=== PATIENT | female | born 1965 | race American Indian/Alaskan Native ===

== ENCOUNTER 2018-12-01 23:56 | Inpatient (IN) | payer OTHER ==
[2018-12-02] MEDS ORDERED: ADRENALIN ONE (00:10)
[2018-12-02] MEDS ORDERED: CORDARONE IV ONE (00:10)
[2018-12-02] MEDS ORDERED: ATROPINE 0.1% (CARDIAC) ONE (00:10)
[2018-12-02] MEDS ORDERED: AMIDATE IV ONE (00:20)
[2018-12-02] MEDS ORDERED: ZEMURON IV ONE (00:20)
[2018-12-02] MEDS ORDERED: NACL 0.9% 1000 ML 1,000 ML IV ONE (00:20)
[2018-12-02] MEDS ORDERED: DIPRIVAN 10 MG/ML 1,000 MG/100 ML BOTTLE IV ONE (00:33)
--- NOTE | 2018-12-02 00:38 | Emergency Department Report ---
ED CPR HPI - General Chief Complaint: Cardiac Arrest/CPR Stated Complaint: CHEST PAIN Time Seen by Provider: 12/02/18 00:20 Source: patient Mode of arrival: Ambulatory Limitations: No Limitations - History of Present Illness Initial Comments: Patient is 53 years old female with history of hypertension and hyperlipidemia, presented to the ER complaining of chest pain. While patient is getting her EKG patient told the triage nurse that she is feeling nauseous and then all of a sudden she passed out and start gasping for breath. Upon arrival to triage area patient is gasping for breath but she still have a pulse. Patient immediately moved to inside ER. Patient lost her pulse, CPR initiated. Patient attached to a center specialists which showed a V. fib and patient lost her pulse. Patient immediately received a 200 J that converted her rhythm to normal sinus rhythm and palpable pulse . Patient received amiodarone 300 mg IV and started on amio darone drip. patient intubated after significant suctioning secondary to aspiration. Central line placed. Complaint: stopped breathing - Related Data Home Medications Medication Instructions Recorded Confirmed Last Taken Triamter/Hctz 37.5-25 mg 1 cap PO DAILY 09/16/18 09/16/18 Unknown Previous Rx's Medication Instructions Recorded Last Taken Type Acetaminophen [Acetaminophen TAB] 650 mg PO Q4H PRN #30 tablet 09/16/18 Unknown Rx Aspirin [Aspirin BABY CHEW TAB] 81 mg PO QDAY #30 tab.chew 09/16/18 Unknown Rx AtorvaSTATin [Lipitor] 20 mg PO QHS #30 tablet 09/16/18 Unknown Rx Cilostazol [Pletal] 75 mg PO BID #60 tablet 09/16/18 Unknown Rx Pantoprazole [Protonix] 40 mg PO QDAY #14 tablet 09/16/18 Unknown Rx amLODIPine [Norvasc] 10 mg PO DAILY #30 tablet 09/16/18 Unknown Rx cloNIDine [Catapres] 0.1 mg PO DAILY #30 tablet 09/16/18 Unknown Rx levoFLOXacin [Levaquin TAB] 500 mg PO QDAY #5 tablet 09/16/18 Unknown Rx Allergies Allergy/AdvReac Type Severity Reaction Status Date / Time No Known Allergies Allergy Unverified 05/06/15 16:09 ED Review of Systems ROS: Stated complaint: CHEST PAIN Other details as noted in HPI Comment: Unobtainable due to pts medical conditions ED Past Medical Hx - Past Medical History Hx Hypertension: Yes - Surgical History Additional Surgical History: D&C - Social History Smoking Status: Former Smoker - Medications Home Medications: Home Medications Medication Instructions Recorded Confirmed Last Taken Type Acetaminophen [Acetaminophen TAB] 650 mg PO Q4H PRN #30 tablet 09/16/18 Unknown Rx Aspirin [Aspirin BABY CHEW TAB] 81 mg PO QDAY #30 tab.chew 09/16/18 Unknown Rx AtorvaSTATin [Lipitor] 20 mg PO QHS #30 tablet 09/16/18 Unknown Rx Cilostazol [Pletal] 75 mg PO BID #60 tablet 09/16/18 Unknown Rx Pantoprazole [Protonix] 40 mg PO QDAY #14 tablet 09/16/18 Unknown Rx Triamter/Hctz 37.5-25 mg 1 cap PO DAILY 09/16/18 09/16/18 Unknown History amLODIPine [Norvasc] 10 mg PO DAILY #30 tablet 09/16/18 Unknown Rx cloNIDine [Catapres] 0.1 mg PO DAILY #30 tablet 09/16/18 Unknown Rx levoFLOXacin [Levaquin TAB] 500 mg PO QDAY #5 tablet 09/16/18 Unknown Rx ED Physical Exam - General Limitations: No Limitations General appearance: obtunded, other - Head Head exam: Present: atraumatic, normocephalic, normal inspection - Eye Eye exam: Present: normal appearance - ENT ENT exam: Present: normal exam, mucous membranes moist - Neck Neck exam: Present: normal inspection - Respiratory Respiratory exam: Present: other (no spontaneous breathing. Patient intubated) - Cardiovascular Cardiovascular Exam: Present: other (no pulse) - GI/Abdominal GI/Abdominal exam: Present: soft. Absent: distended, tenderness, guarding - Extremities Exam Extremities exam: Present: normal inspection ED Course Vital Signs 12/02/18 12/02/18 12/02/18 00:18 00:30 00:46 Pulse Rate 94 H 86 101 H Respiratory 22 18 16 Rate Blood Pressure 139/108 122/77 Blood Pressure [Right] O2 Sat by Pulse 95 99 Oximetry 12/02/18 12/02/18 12/02/18 01:00 01:16 01:30 Pulse Rate 103 H 95 H 108 H Respiratory 22 22 22 Rate Blood Pressure 188/121 168/109 192/138 Blood Pressure 152/102 [Right] O2 Sat by Pulse 100 100 99 Oximetry 0712/02/18 12/02/18 01:34 01:45 01:46 Pulse Rate 111 H 109 H 112 H Respiratory 22 24 Rate Blood Pressure 178/122 178/122 Blood Pressure 153/108 [Right] O2 Sat by Pulse 99 99 100 Oximetry 12/02/18 12/02/18 12/02/18 02:00 02:16 02:52 Pulse Rate 118 H 116 H 69 Respiratory 24 24 Rate Blood Pressure 176/124 168/114 172/124 Blood Pressure [Right] O2 Sat by Pulse 98 96 91 Oximetry 12/02/18 12/02/18 12/02/18 03:00 03:15 03:30 Pulse Rate 90 75 66 Respiratory 19 24 16 Rate Blood Pressure 136/92 127/88 131/104 Blood Pressure [Right] O2 Sat by Pulse 91 91 98 Oximetry 12/02/18 12/02/18 12/02/18 03:46 04:00 04:15 Pulse Rate 73 73 71 Respiratory 19 26 H 28 H Rate Blood Pressure 62/28 89/57 80/49 Blood Pressure [Right] O2 Sat by Pulse 98 95 Oximetry 12/02/18 12/02/18 12/02/18 04:30 04:45 05:00 Pulse Rate 70 69 73 Respiratory 31 H 24 32 H Rate Blood Pressure 80/50 87/59 97/56 Blood Pressure [Right] O2 Sat by Pulse 95 90 85 Oximetry 12/02/18 12/02/18 12/02/18 05:15 05:20 05:29 Pulse Rate 68 71 71 Respiratory 27 H 28 H Rate Blood Pressure 87/52 90/50 Blood Pressure 93/49 [Right] O2 Sat by Pulse 89 91 92 Oximetry - Central Line Placement Right Femoral Consent Obtained: emergent situation Time Out Performed: Yes Patient Placed on Monitor/Pulse Ox: Yes MD Prep: mask, gown, gloves Central Line Prep: Chlorhexidine scrub, sterile drapes applied Local Anesthesia Used: Lidocaine 2% Ultrasound Used for Placement: Yes Central Line Lumen Inserted: triple Bloods Obtained for Lab: No Central Line Position: good blood return, all ports aspirated, flus, sutured in place with 2-0 Dressing Applied: Tegaderm, sterile gauze/tape Patient Tolerated Procedure: well, no complications Complications: none - Intubation Time Out Performed: Yes Sedative: Etomidate Paralytic: Rocuronium Laryngoscope: fiberoptic video scope Size: 4 ET Tube Size: 7.5 Tube Secured Depth (cm): 22 Tube Secured Location: teeth Tube Placement Confirmation: visualized tube passing t, equal breath sounds bilat, no breath sounds over epi, confirmation by capnometr Patient Tolerated Procedure: well, no complications Intubation Complications: none ED Medical Decision Making - Lab Data Result diagrams: 12/02/18 00:30 12/02/18 00:30 - EKG Data -: EKG Interpreted by Me Rate: tachycardia - EKG Data 12/02/18 03:33 Atrial fibrillation with RVR. - Medical Decision Making Patient is 53 years old female with history of hypertension and hyperlipidemia, presented to the ER complaining of chest pain. While patient is getting her EKG patient told the triage nurse that she is feeling nauseous and then all of a s udden she passed out and start gasping for breath. Upon arrival to triage area patient is gasping for breath but she still have a pulse. Patient immediately moved to inside ER. Patient lost her pulse, CPR initiated. Patient attached to a center specialists which showed a V. fib and no pulse. Patient immediately received a 200 J that converted her rhythm to normal sinus rhythm and palpable pulse . Patient received amiodarone 300 mg IV and started on amiodarone drip. patient intubated after significant suctioning. Central line placed. Patient labs reviewed and is unremarkable except for elevated d-dimer and a slightly elevated white blood cells. CTA chest is negative for pulmonary embolism. I discussed the patient with Dr. RODRIGEZ. He advised admitting the patient's and he will follow-up with the patient. I discussed the patient with Dr Maribeth Mojica, she agreed to admit the patient to medical service. Critical Care Time: Yes Critical care time in (mins) excluding proc time.: 45 Critical care attestation.: If time is entered above; I have spent that time in minutes in the direct care of this critically ill patient, excluding procedure time. ED Disposition Clinical Impression: Cardiopulmonary arrest Disposition: OP ADMIT IP TO THIS HOSP Is pt being admited?: Yes Condition: Stable Referrals: DIMITRI LOTT MD [Primary Care Provider] - 3-5 Days
[2018-12-02] MEDS ORDERED: VASELINE LIP THERAPY TP PRN (00:45)
[2018-12-02] MEDS ORDERED: ARTIFICIAL TEARS OPHTH OINT OU PRN (00:45)
[2018-12-02] MEDS: CORDARONE 900 MG in D5W 482 ML IV SCH ×2 (01:00→19:38)
[2018-12-02] MEDS ORDERED: DIPRIVAN 10 MG/ML 1,000 MG/100 ML BOTTLE IV SCH ×2 (01:00)
--- NOTE | 2018-12-02 01:13 | XRay Report ---
CHEST 1 VIEW INDICATION / CLINICAL INFORMATION: Chest Pain. COMPARISON: 09/15/2018 FINDINGS: SUPPORT DEVICES: Endotracheal tube, nasogastric tube HEART / MEDIASTINUM: No significant abnormality. LUNGS / PLEURA: No significant pulmonary or pleural abnormality. No pneumothorax. ADDITIONAL FINDINGS: No significant additional findings. IMPRESSION: No acute pulmonary or pleural abnormality. Signer Name: Eriberto Dela Cruz MD FACR Signed: 12/02/2018 1:09 AM Workstation Name: [id number]
[2018-12-02 01:17] LABS: Mean Corpuscular HGB Conc 31 % (30-34); Mean Corpuscular Volume 92 fl (79-97); Platelet Count 422 K/mm3 (140-440); Red Blood Count 4.57 M/mm3 (3.65-5.03); Red Cell Distribution Width 18.1 % (13.2-15.2)
[2018-12-02 01:22] LABS: INR 1.09 (0.87-1.13)
[2018-12-02 01:24] LABS: Partial Thromboplastin Time 26.6 Sec. (24.2-36.6)
[2018-12-02 01:26] LABS: BUN/Creatinine Ratio 17; Blood Urea Nitrogen 20 mg/dL (7-17); Hemolysis Index 29
[2018-12-02 01:33] LABS: Hematocrit 42.1 % (30.3-42.9); Hemoglobin 12.9 gm/dl (10.1-14.3)
--- NOTE | 2018-12-02 03:15 | Cat Scan Report ---
CT angio chest INDICATION / CLINICAL INFORMATION: Status post Cardiac Arrest. Patient unresponsive and intubated. Injection via femoral power inject central line. RN states patient aspirated vomitus. . TECHNIQUE: Axial CT images were obtained after injection of IV contrast using CTA protocol. 3 plane MIP / 3D rec onstructions were produced. All CT scans at this location are performed using CT dose reduction for A ELDER by means of automated exposure control. 100 cc of Omnipaque 350 was injected intravenously COMPARISON: None available. FINDINGS: Following the injection of intravenous contrast, no filling defects are seen in the main pulmonary ar teries or their branches. Extensive bilateral airspace disease is seen. No enlarged mediastinal or hi lar lymph nodes are identified. IMPRESSION: 1. No evidence of pulmonary embolus 2. Extensive bilateral airspace disease Signer Name: Eriberto Dela Cruz MD FACR Signed: 12/02/2018 3:11 AM Workstation Name: [id number]
[2018-12-02] MEDS ORDERED: fentaNYL DRIP Premix 2,000 MCG/100 ML BAG IV ONE (03:28)
[2018-12-02 03:35] LABS: Amphetamine Screen,Urine PRESUMPTIVE NEGATIVE; Benzodiazepines Screen,Urine PRESUMPTIVE NEGATIVE; Cocaine Screen,Urine PRESUMPTIVE NEGATIVE; Methadone Screen,Urine PRESUMPTIVE NEGATIVE; Opiate Screen,Urine PRESUMPTIVE NEGATIVE
[2018-12-02 03:38] LABS: Bilirubin,Urine NEG (Negative); Blood,Urine SM (Negative); Color,Urine Colorless (Yellow); Mucus,Urine FEW /HPF; Urobilinogen,Urine < 2.0 mg/dL (<2.0)
[2018-12-02 03:50] LABS: Cannabinoid Screen,Urine PRESUMPTIVE POSITIVE
[2018-12-02] MEDS ORDERED: NACL 0.9% 1000 ML 1,000 ML ONE (03:50)
[2018-12-02] MEDS ORDERED: LEVOPHED DRIP 4 MG/NS 250 ML 4 MG/250 ML BAG IV ONE (03:50)
[2018-12-02] MEDS ORDERED: SUBLIMAZE IV PRN (04:00)
[2018-12-02] MEDS ORDERED: ZOSYN/NS 3.375GM/50ML 3.375 GM/50 ML BAG IV ONE (04:00)
[2018-12-02] MEDS: fentaNYL DRIP Premix 2,000 MCG/100 ML BAG IV SCH ×2 (04:06→15:49)
[2018-12-02] MEDS: LEVOPHED DRIP 4 MG/NS 250 ML 4 MG/250 ML BAG IV SCH ×5 (04:16→19:53)
[2018-12-02] MEDS ORDERED: LEVOPHED DRIP 4 MG/NS 250 ML 4 MG/250 ML BAG IV SCH (05:00)
[2018-12-02] MEDS ORDERED: ZOFRAN IV PRN (05:03)
[2018-12-02] MEDS ORDERED: SODIUM CHLORIDE FLUSH SYRINGE 10 ML IV PRN (05:03)
[2018-12-02] MEDS ORDERED: TYLENOL PO PRN (05:03)
--- NOTE | 2018-12-02 05:08 | History and Physical Report ---
History of Present Illness Date of examination: 12/02/18 History of present illness: 53 -year-old woman with a history of hypertension, hyperlidemia, PVD comes to the emergency room with complaints of chest pain. While she was getting an EKG, she went into cardiac arrest, shocked once for vfib, started on amiodarone drip and intubated. She aspirated copious amount of gastric content. Cousin at bedside, ROS unobtainable. She was here in September fo chest pain, stress test negative. She is on fetanyl and profopol, she became hypotensive after amiodarone was started. Levophed initiated PAST MEDICAL HISTORY:hypertension, hyperlipidemia, PVD PAST SURGICAL HISTORY: None SOCIAL HISTORY: Unknown alcohol, tobacco or drug use FAMILY HISTORY: Hypertension Medications and Allergies Allergies Allergy/AdvReac Type Severity Reaction Status Date / Time No Known Allergies Allergy Unverified 05/06/15 16:09 Home Medications Medication Instructions Recorded Confirmed Last Taken Type Amiodarone [Cordarone 200 MG TAB] 200 mg PO QDAY #30 tablet 12/15/18 12/16/18 Unknown Rx Apixaban [Eliquis] 5 mg PO BID #60 tablet 12/15/18 12/16/18 Unknown Rx Aspirin EC 81 mg PO QDAY #30 tablet 12/15/18 12/16/18 Unknown Rx AtorvaSTATin [Lipitor] 40 mg PO QHS #30 tablet 12/15/18 12/16/18 Unknown Rx Cilostazol [Pletal] 75 mg PO BID #60 tablet 12/15/18 12/16/18 Unknown Rx Clopidogrel [Plavix] 75 mg PO QDAY #30 tablet 12/15/18 12/16/18 Unknown Rx Furosemide [Lasix TAB] 40 mg PO QDAY #30 tablet 12/15/18 12/16/18 Unknown Rx ISOSORBIDE MONOnitrate [Imdur ER] 30 mg PO QDAY #30 tablet 12/15/18 12/16/18 Unknown Rx Lisinopril [Zestril TAB] 20 mg PO QDAY #30 tablet 12/15/18 12/16/18 Unknown Rx Metoprolol [Lopressor TAB] 50 mg PO BID #60 tablet 12/15/18 12/16/18 Unknown Rx Pantoprazole [Protonix TAB] 40 mg PO QDAY #30 tablet 12/15/18 12/16/18 Unknown Rx Polyethylene Glycol 3350 [Miralax 17 gm FEEDTUBE QDAY PRN #30 12/15/18 12/16/18 Unknown Rx 3350] powd.pack Active Meds: Active Medications Acetaminophen (Tylenol) 650 mg PO Q4H PRN PRN Reason: Pain MILD(1-3)/Fever >100.5/TORRES Albuterol/Ipratropium (Duoneb *Not For Prn Use*) 1 ampul IH Q6HRT DC Enoxaparin Sodium (Lovenox) 30 mg SUB-Q QDAY DC Fentanyl (Sublimaze) 50 mcg IV Q10MIN PRN PRN Reason: ANALGESIA Hydrophilic Ointment (Vaseline Lip Therapy) 1 applic TP Q2HR PRN PRN Reason: Dry Lips Amiodarone HCl 900 mg/ (Dextrose) 500 mls @ 33.333 mls/hr IV DIRECT DC; Protocol Last Admin: 12/02/18 01:00 Dose: 1 mg/min, 33.333 mls/hr Documented by: Propofol (Diprivan 10 Mg/Ml) 1,000 mg in 100 mls @ 2.82 mls/hr IV TITR DC; Protocol Last Titration: 12/02/18 04:07 Dose: 10 mcg/kg/min, 5.64 mls/hr Documented by: Fentanyl Citrate (Fentanyl Drip Premix) 2,000 mcg in 100 mls @ 4.7 mls/hr IV TITR DC; Protocol Last Admin: 12/02/18 04:06 Dose: 3 mcg/kg/hr, 14.1 mls/hr Documented by: Norepinephrine (Levophed Drip 4 Mg/Ns 250 Ml) 4 mg in 250 mls @ 7.5 mls/hr IV TITR DC; Protocol Last Titration: 12/02/18 05:04 Dose: 24 mcg/min, 90 mls/hr Documented by: Piperacillin Sod/Tazobactam Sod (Zosyn/Ns 4.5gm/100ml) 4.5 gm in 100 mls @ 200 mls/hr IV Q8HR DC; Protocol Multi-Ingred Cream/Lotion/Oil/Oint (Artificial Tears Ophth Oint) 1 applic OU Q4HR PRN PRN Reason: Dry Eye(s) Ondansetron HCl (Zofran) 4 mg IV Q8H PRN PRN Reason: Nausea And Vomiting Sodium Chloride (Sodium Chloride Flush Syringe 10 Ml) 10 ml IV BID DC Sodium Chloride (Sodium Chloride Flush Syringe 10 Ml) 10 ml IV PRN PRN PRN Reason: LINE FLUSH Exam - Physical Exam Narrative exam: Gen. appearance: Patient lying in bed, no apparent distress, intubated HEENT: Normocephalic, atraumatic, pupils equally round and reactive to light, unable to do extraocular movement, and no sclericterus,. No JVD or thyromegaly or nodule,neck supple, no carotid bruit ,mucous membranes moist, no exudate or erythema Heart: S1, S2, regular rate and rhythm Lungs: Clear to auscultation bilaterally, breathing comfortable Abdomen: Positive bowel sounds, nontender, nondistended, no organomegaly Extremity: No edema, cyanosis, clubbing Skin: No rash, nodules, warm, dry Neuro: sedated - Constitutional Vitals: Temp Pulse Resp BP Pulse Ox 69 24 87/59 90 12/02/18 04:45 12/02/18 04:45 12/02/18 04:45 12/02/18 04:45 Results - Labs CBC & Chem 7: 12/15/18 05:11 12/15/18 05:11 Labs: Abnormal lab results 12/02/18 12/02/18 12/02/18 Range/Units 00:30 00:30 00:30 WBC 11.6 H (4.5-11.0) K/mm3 RDW 18.1 H (13.2-15.2) % D-Dimer 1085.94 H (0-234) ng/mlDDU POC ABG pH (7.35-7.45) POC ABG pCO2 (35-45) POC ABG pO2 (80-105) Potassium 3.1 L (3.6-5.0) mmol/L Carbon Dioxide 21 L (22-30) mmol/L BUN 20 H (7-17) mg/dL Glucose 222 H (65-100) mg/dL Troponin T (0.00-0.029) ng/mL Urine WBC (Auto) (0.0-6.0) /HPF 12/02/18 12/02/18 12/02/18 Range/Units 01:26 02:58 03:14 WBC (4.5-11.0) K/mm3 RDW (13.2-15.2) % D-Dimer (0-234) ng/mlDDU POC ABG pH 7.212 L (7.35-7.45) POC ABG pCO2 55.1 H (35-45) POC ABG pO2 121 H (80-105) Potassium (3.6-5.0) mmol/L Carbon Dioxide (22-30) mmol/L BUN (7-17) mg/dL Glucose (65-100) mg/dL Troponin T 0.054 H D (0.00-0.029) ng/mL Urine WBC (Auto) 12.0 H (0.0-6.0) /HPF - Imaging and Cardiology EKG: image reviewed Chest x-ray: report reviewed CT scan - chest: report reviewed Assessment and Plan Assessment Acute respiratory failure Cardiac arrest Ventricular fibrillation aspiration pneumonia uti hypotension,, medication induced Hyperlipidemia PVD Plan Admit to medicine Check cardiac enzymes, echo Continue sedation, levophed drip, amiodarone drip Start IV zosyn, follow cultures Consult cardiology, critical care DVT prophalaxis
[2018-12-02 05:18] LABS: Chol/HDL Ratio 3.82 %
[2018-12-02 05:41] LABS: Anisocytosis 1+; Band Neutrophils # (Manual) 0.3 K/mm3; Basophils % (Manual) 0 % (0.0-1.8); Giant Platelets Rare; Ovalocytes Few; Promyelocytes # (Manual) 0.2 K/mm3; Total Cells Counted 100
[2018-12-02 06:45] LABS: Creatine Kinase MB 30.7 ng/mL (0.0-4.0)
[2018-12-02] MEDS: Vasostrict 20 UNIT in NACL 0.9% 100 ML IV SCH ×2 (07:45→16:56)
[2018-12-02] MEDS: DUONEB *Not for PRN Use IH SCH ×3 (08:39→20:28)
[2018-12-02] MEDS ORDERED: LOVENOX SUB-Q SCH (10:00)
--- NOTE | 2018-12-02 10:05 | Consultation ---
History of Present Illness Consult date: 12/02/18 Requesting physician: REGINA FIGUEROA History of present illness: PULMONARY/CCM CONSULT NOTE (Full dictation # [id number]) Please see dictated notes for full details Medications and Allergies Allergies Allergy/AdvReac Type Severity Reaction Status Date / Time No Known Allergies Allergy Unverified 05/06/15 16:09 Home Medications Medication Instructions Recorded Confirmed Last Taken Type Acetaminophen [Acetaminophen TAB] 650 mg PO Q4H PRN #30 tablet 09/16/18 Unknown Rx Aspirin [Aspirin BABY CHEW TAB] 81 mg PO QDAY #30 tab.chew 09/16/18 12/02/18 Unknown Rx AtorvaSTATin [Lipitor] 20 mg PO QHS #30 tablet 09/16/18 12/02/18 Unknown Rx Cilostazol [Pletal] 75 mg PO BID #60 tablet 09/16/18 12/02/18 Unknown Rx Pantoprazole [Protonix] 40 mg PO QDAY #14 tablet 09/16/18 Unknown Rx Triamter/Hctz 37.5-25 mg 1 cap PO DAILY 09/16/18 12/02/18 Unknown History amLODIPine [Norvasc] 10 mg PO DAILY #30 tablet 09/16/18 12/02/18 Unknown Rx cloNIDine [Catapres] 0.1 mg PO DAILY #30 tablet 09/16/18 12/02/18 Unknown Rx levoFLOXacin [Levaquin TAB] 500 mg PO QDAY #5 tablet 09/16/18 Unknown Rx Active Meds: Active Medications Acetaminophen (Tylenol) 650 mg PO Q4H PRN PRN Reason: Pain MILD(1-3)/Fever >100.5/TORRES Albuterol/Ipratropium (Duoneb *Not For Prn Use*) 1 ampul IH Q6HRT DC Last Admin: 12/02/18 08:39 Dose: 1 ampul Documented by: Enoxaparin Sodium (Lovenox) 40 mg SUB-Q QDAY DC Famotidine (Pepcid) 20 mg IV BID DC Fentanyl (Sublimaze) 50 mcg IV Q10MIN PRN PRN Reason: ANALGESIA Hydrophilic Ointment (Vaseline Lip Therapy) 1 applic TP Q2HR PRN PRN Reason: Dry Lips Amiodarone HCl 900 mg/ (Dextrose) 500 mls @ 33.333 mls/hr IV DIRECT DC; Protocol Last Admin: 12/02/18 01:00 Dose: 1 mg/min, 33.333 mls/hr Documented by: Propofol (Diprivan 10 Mg/Ml) 1,000 mg in 100 mls @ 2.82 mls/hr IV TITR DC; Protocol Last Titration: 12/02/18 04:07 Dose: 10 mcg/kg/min, 5.64 mls/hr Documented by: Fentanyl Citrate (Fentanyl Drip Premix) 2,000 mcg in 100 mls @ 4.7 mls/hr IV TITR DC; Protocol Last Admin: 12/02/18 04:06 Dose: 3 mcg/kg/hr, 14.1 mls/hr Documented by: Norepinephrine (Levophed Drip 4 Mg/Ns 250 Ml) 4 mg in 250 mls @ 7.5 mls/hr IV TITR DC; Protocol Last Titration: 12/02/18 05:40 Dose: 22 mcg/min, 82.5 mls/hr Documented by: Piperacillin Sod/Tazobactam Sod (Zosyn/Ns 4.5gm/100ml) 4.5 gm in 100 mls @ 200 mls/hr IV Q8H DC; Protocol Sodium Chloride (Nacl 0.9% 1000 Ml) 1,000 mls @ 150 mls/hr IV DIRECT DC Vasopressin 20 unit/ Sodium (Chloride) 101 mls @ 9.09 mls/hr IV TITR DC; Protocol Last Admin: 12/02/18 07:45 Dose: 0.03 units/min, 9.09 mls/hr Documented by: Multi-Ingred Cream/Lotion/Oil/Oint (Artificial Tears Ophth Oint) 1 applic OU Q4HR PRN PRN Reason: Dry Eye(s) Ondansetron HCl (Zofran) 4 mg IV Q8H PRN PRN Reason: Nausea And Vomiting Sodium Chloride (Sodium Chloride Flush Syringe 10 Ml) 10 ml IV BID DC Sodium Chloride (Sodium Chloride Flush Syringe 10 Ml) 10 ml IV PRN PRN PRN Reason: LINE FLUSH Physical Examination Vital signs: Vital Signs Pulse Resp 94 H 22 12/02/18 00:18 12/02/18 00:18 Results - Laboratory Findings CBC and BMP: 12/02/18 00:30 12/02/18 00:30 ABG POC ABG pH 7.150 (7.35-7.45) L 07/27/19 07:52 POC ABG pCO2 56.3 (35-45) H 12/02/18 07:52 POC ABG pO2 53 (80-105) L 12/02/18 07:52 POC ABG HCO3 19.6 (22-26 mml/L) 12/02/18 07:52 POC ABG Total CO2 21 (23-27mmol/L) 12/02/18 07:52 POC ABG O2 Sat 76 12/02/18 07:52 PT/INR, D-dimer PT 13.8 Sec. (12.2-14.9) 12/02/18 00:30 INR 1.09 (0.87-1.13) 12/02/18 00:30 1085.94 ng/mlDDU (0-234) H 12/02/18 00:30 Abnormal lab findings: Abnormal Labs 12/02/18 12/02/18 12/02/18 00:30 00:30 00:30 WBC 11.6 H RDW 18.1 H Seg Neuts % (Manual) 35.0 L Lymphocytes % (Manual) 41.0 H Monocytes % (Manual) 11.0 H Eosinophils % (Manual) 6.0 H Monocytes # (Manual) 1.3 H Eosinophils # (Manual) 0.7 H D-Dimer 1085.94 H POC ABG pH POC ABG pCO2 POC ABG pO2 Potassium 3.1 L Carbon Dioxide 21 L BUN 20 H Glucose 222 H Total Creatine Kinase CK-MB (CK-2) CK-MB (CK-2) Rel Index Troponin T Triglycerides LDL Cholesterol Direct HDL Cholesterol Urine WBC (Auto) 12/02/18 12/02/18 12/02/18 01:26 02:58 03:14 WBC RDW Seg Neuts % (Manual) Lymphocytes % (Manual) Monocytes % (Manual) Eosinophils % (Manual) Monocytes # (Manual) Eosinophils # (Manual) D-Dimer POC ABG pH 7.212 L POC ABG pCO2 55.1 H POC ABG pO2 121 H Potassium Carbon Dioxide BUN Glucose Total Creatine Kinase CK-MB (CK-2) CK-MB (CK-2) Rel Index Troponin T 0.054 H D Triglycerides 358 H LDL Cholesterol Direct 42 L HDL Cholesterol 29 L Urine WBC (Auto) 12.0 H 12/02/18 12/02/1812/02/19 04:52 05:26 06:19 WBC RDW Seg Neuts % (Manual) Lymphocytes % (Manual) Monocytes % (Manual) Eosinophils % (Manual) Monocytes # (Manual) Eosinophils # (Manual) D-Dimer POC ABG pH 7.217 L 7.155 L POC ABG pCO2 52.7 H 57.3 H POC ABG pO2 56 L 57 L Potassium Carbon Dioxide BUN Glucose Total Creatine Kinase 224 H CK-MB (CK-2) 30.7 H CK-MB (CK-2) Rel Index 13.7 H Troponin T 0.227 H* D Triglycerides LDL Cholesterol Direct HDL Cholesterol Urine WBC (Auto) 12/02/18 07:52 WBC RDW Seg Neuts % (Manual) Lymphocytes % (Manual) Monocytes % (Manual) Eosinophils % (Manual) Monocytes # (Manual) Eosinophils # (Manual) D-Dimer POC ABG pH 7.150 L POC ABG pCO2 56.3 H POC ABG pO2 53 L Potassium Carbon Dioxide BUN Glucose Total Creatine Kinase CK-MB (CK-2) CK-MB (CK-2) Rel Index Troponin T Triglycerides LDL Cholesterol Direct HDL Cholesterol Urine WBC (Auto)
--- NOTE | 2018-12-02 10:36 | Consultation ---
History of Present Illness Consult date: 12/02/18 Consult reason: cardiac arrest History of present illness: 53 year old female presenting with respiratory distress. She sustained a Vfib cardiac arrest requiring cardioversion in the ER (no tele strips available) She was intubated in the ER. CT scan revealing extensive airspace disease. Potassium on admission was 3.1. patient is awake and responsive. troponin noted mildly elevated with a positive MB index. Patient recently had a normal stress test in this hospital. Tele is showing afib Medications and Allergies Allergies Allergy/AdvReac Type Severity Reaction Status Date / Time No Known Allergies Allergy Unverified 05/06/15 16:09 Home Medications Medication Instructions Recorded Confirmed Last Taken Type Acetaminophen [Acetaminophen TAB] 650 mg PO Q4H PRN #30 tablet 09/16/18 Unknown Rx Aspirin [Aspirin BABY CHEW TAB] 81 mg PO QDAY #30 tab.chew 09/16/18 12/02/18 12/01/18 Rx AtorvaSTATin [Lipitor] 20 mg PO QHS #30 tablet 09/16/18 12/02/18 12/01/18 Rx Cilostazol [Pletal] 75 mg PO BID #60 tablet 09/16/18 12/02/18 12/01/18 Rx Pantoprazole [Protonix] 40 mg PO QDAY #14 tablet 09/16/18 Unknown Rx Triamter/Hctz 37.5-25 mg 1 cap PO DAILY 09/16/18 12/02/18 12/01/18 History amLODIPine [Norvasc] 10 mg PO DAILY #30 tablet 09/16/18 12/02/18 12/01/18 Rx cloNIDine [Catapres] 0.1 mg PO DAILY #30 tablet 09/16/18 12/02/18 12/01/18 Rx levoFLOXacin [Levaquin TAB] 500 mg PO QDAY #5 tablet 09/16/18 Unknown Rx Active Meds: Active Medications Acetaminophen (Tylenol) 650 mg PO Q4H PRN PRN Reason: Pain MILD(1-3)/Fever >100.5/TORRES Albuterol/Ipratropium (Duoneb *Not For Prn Use*) 1 ampul IH Q6HRT [facility] Last Admin: 12/02/18 08:39 Dose: 1 ampul Documented by: Enoxaparin Sodium (Lovenox) 40 mg SUB-Q QDAY DC Famotidine (Pepcid) 20 mg IV BID DC Fentanyl (Sublimaze) 50 mcg IV Q10MIN PRN PRN Reason: ANALGESIA Hydrophilic Ointment (Vaseline Lip Therapy) 1 applic TP Q2HR PRN PRN Reason: Dry Lips Amiodarone HCl 900 mg/ (Dextrose) 500 mls @ 33.333 mls/hr IV DIRECT DC; Protocol Last Titration: 12/02/18 07:30 Dose: 0.5 mg/min, 16.667 mls/hr Documented by: Propofol (Diprivan 10 Mg/Ml) 1,000 mg in 100 mls @ 2.82 mls/hr IV TITR DC; Protocol Last Titration: 12/02/18 04:07 Dose: 10 mcg/kg/min, 5.64 mls/hr Documented by: Fentanyl Citrate (Fentanyl Drip Premix) 2,000 mcg in 100 mls @ 4.7 mls/hr IV TITR DC; Protocol Last Titration: 12/02/18 09:34 Dose: 0.5 mcg/kg/hr, 2.35 mls/hr Documented by: Norepinephrine (Levophed Drip 4 Mg/Ns 250 Ml) 4 mg in 250 mls @ 7.5 mls/hr IV TITR DC; Protocol Last Titration: 12/02/18 09:30 Dose: Infused Documented by: Piperacillin Sod/Tazobactam Sod (Zosyn/Ns 4.5gm/100ml) 4.5 gm in 100 mls @ 200 mls/hr IV Q8H DC; Protocol Sodium Chloride (Nacl 0.9% 1000 Ml) 1,000 mls @ 150 mls/hr IV DIRECT DC Vasopressin 20 unit/ Sodium (Chloride) 101 mls @ 9.09 mls/hr IV TITR DC; Protocol Last Admin: 12/02/18 07:45 Dose: 0.03 units/min, 9.09 mls/hr Documented by: Levofloxacin/Dextrose (Levaquin 500mg/100ml) 500 mg in 100 mls @ 100 mls/hr IV Q24HR DC; Protocol Stop: 12/07/18 10:59 Multi-Ingred Cream/Lotion/Oil/Oint (Artificial Tears Ophth Oint) 1 applic OU Q4HR PRN PRN Reason: Dry Eye(s) Ondansetron HCl (Zofran) 4 mg IV Q8H PRN PRN Reason: Nausea And Vomiting Sodium Chloride (Sodium Chloride Flush Syringe 10 Ml) 10 ml IV BID DC Sodium Chloride (Sodium Chloride Flush Syringe 10 Ml) 10 ml IV PRN PRN PRN Reason: LINE FLUSH Physical Examination Vital Signs Pulse Resp 94 H 22 12/02/18 00:18 12/02/18 00:18 Results 12/02/18 00:30 12/02/18 00:30 Cardiac Enzymes 12/02/18 Range/Units 05:26 CK-MB (CK-2) 30.7 H (0.0-4.0) ng/mL Coagulation 12/02/18 Range/Units 00:30 PT 13.8 (12.2-14.9) Sec. INR 1.09 (0.87-1.13) APTT 26.6 (24.2-36.6) Sec. Lipids 12/02/18 Range/Units 03:14 Triglycerides 358 H (2-149) mg/dL Cholesterol 111 (50-199) mg/dL HDL Cholesterol 29 L (40-59) mg/dL Cholesterol/HDL Ratio 3.82 % CBC 12/02/18 Range/Units 00:30 WBC 11.6 H (4.5-11.0) K/mm3 RBC 4.57 (3.65-5.03) M/mm3 Hgb 12.9 (10.1-14.3) gm/dl Hct 42.1 (30.3-42.9) % Plt Count 422 (140-440) K/mm3 Lymph # Lead Technical Writer [place] # Lead Technical Writer Eos # Lead Technical Writer Bas[place] # Lead Technical Writer Comprehensive Metabolic Panel 12/02/18 Range/Units 00:30 Sodium 143 (137-145) mmol/L Potassium 3.1 L (3.6-5.0) mmol/L Chloride 103.7 (98-107) mmol/L Carbon Dioxide 21 L (22-30) mmol/L BUN 20 H (7-17) mg/dL Creatinine 1.2 (0.7-1.2) mg/dL Glucose 222 H (65-100) mg/dL Calcium 9.0 (8.4-10.2) mg/dL Assessment and Plan Acute respiratory failure Extensive airspace disease on CT Cardiopulmonary arrest Vfib requiring cardioversion in the ER MPI 09/16/2018 - normal Echo 09/16/2018 - normal LVEF Abnormal troponin likely type II MT post Vfib and electrical shock Atrial fibrillation, new onset Systemic Hypertension Peripheral vascular disease on cilostazol Hyperlipidemia Former smoker (quit in 2011) Morbid obesity Marijuana use Recommendations: Repeat limited echo to evaluate LVEF Start IV heparin for underlying afib and mild troponin abnormality Continue IV amiodarone infusion at 0.5 mg/min non-stop Replace potassium and check magnesium Start aspirin daily Start gentle diuresis when BP is stable Will continue to follow
[2018-12-02] MEDS ORDERED: HEPARIN 10,000 UNITS/10 ML IV ONE (11:00)
[2018-12-02] MEDS ORDERED: ASPIRIN PR SCH (11:00)
[2018-12-02 11:26] LABS: INR 1.15 (0.87-1.13); Partial Thromboplastin Time 26.5 Sec. (24.2-36.6)
[2018-12-02 11:33] LABS: Creatine Kinase MB 216.7 ng/mL (0.0-4.0)
[2018-12-02] MEDS: KCL 10MEQ/100ML 10 MEQ/100 ML BAG IV SCH ×4 (11:55→18:10)
--- NOTE | 2018-12-02 12:03 | Vascular Lab Report ---
DUPLEX DOPPLER LOWER EXTREMITY VEINS, BILATERAL INDICATION: leg pain; cardiac arrest; hypoxemia. TECHNIQUE: Duplex doppler imaging was performed through the veins of both lower extremities using venous pat yasmine and other maneuvers. COMPARISON: None available. FINDINGS: Right Common Femoral vein: Echogenic material is present within the common femoral vein with lack of compressibility. Vascular catheters within the common femoral vein. Right Superficial Femoral vein: Negative. Right Popliteal vein: Negative. Right Calf veins: Negative. Left Common Femoral vein: Negative. Left Superficial Femoral vein: Negative. Left Popliteal vein: Negative. Left Calf veins: Negative. Additional findings: Echogenic material with lack of compressibility is identified in the right great er saphenous vein IMPRESSION: 1. Deep venous thrombosis involving the right common femoral vein as noted Signer Name: Angel Castle MD Signed: 12/02/2018 11:59 AM Workstation Name: [id number]
--- NOTE | 2018-12-02 12:35 | Progress Note ---
Assessment and Plan Assessment and plan: Acute hypoxemic respiratory failure. Patient with extensive airspace disease on CT scan. Continue mechanical ventilation per pulmonary. s/p cardiopulmonary/V. fib arrest. Patient with V. fib requiring cardioversion in the emergency room. MPI and echocardiogram September 2018 found to be normal. Elevated troponin. Etiology likely secondary to V. fib arrest/electrical shock. New onset atrial fibrillation. Follow-up echocardiogram. Continue IV heparin. Continue IV amiodarone. Aspirin daily. Hypertension. Continue antihypertensive medications. Hyperlipidemia. Continue statin. Morbid obesity. The high probability of a clinically significant, sudden or life threatening deterioration of the [] system(s) required my full and direct attention, intervention and personal management. The aggregate critical care time was [33] minutes. This time is in addition to time spent performing reported procedures but includes the following: [x] Data Review and interpretation [x] Patient assessment and monitoring of vital signs [x] Documentation [x] Medication orders and management History Interval history: 3 year old female presenting with respiratory distress. She sustained a Vfib cardiac arrest requiring cardioversion in the ER (no tele strips available) She was intubated in the ER. CT scan revealing extensive airspace disease. Potassium on admission was 3.1. patient is awake and responsive. troponin noted mildly elevated with a positive MB index. Patient recently had a normal stress test in this hospital. Tele is showing afib Hospitalist Physical - Constitutional Vitals: Temp Pulse Resp BP Pulse Ox 98.6 F 75 32 H 103/73 95 12/02/18 12:00 12/02/18 11:21 12/02/18 08:42 12/02/18 11:21 12/02/18 11:21 General appearance: Present: no acute distress, well-nourished - EENT Eyes: Present: PERRL, EOM intact ENT: hearing intact, clear oral mucosa, dentition normal - Neck Neck: Present: supple, normal ROM - Respiratory Respiratory effort: normal Respiratory: bilateral: CTA - Cardiovascular Rhythm: regular Heart Sounds: Present: S1 & S2. Absent: gallop, rub - Extremities Extremities: no ischemia, No edema, Full ROM - Abdominal General gastrointestinal: soft, non-tender, non-distended, normal bowel sounds - Integumentary Integumentary: Present: clear, warm, dry - Neurologic Neurologic: CNII-XII intact, moves all extremities Results - Labs CBC & Chem 7: 12/02/18 00:30 12/02/18 00:30 Labs: Laboratory Last Values WBC 11.6 K/mm3 (4.5-11.0) H 12/02/18 00:30 RBC 4.57 M/mm3 (3.65-5.03) 12/02/18 00:30 Hgb 12.9 gm/dl (10.1-14.3) 12/02/18 00:30 Hct 42.1 % (30.3-42.9) 12/02/18 00:30 MCV 92 fl (79-97) 12/02/18 00:30 MCH 28 pg (28-32) 12/02/18 00:30 MCHC 31 % (30-34) 12/02/18 00:30 RDW 18.1 % (13.2-15.2) H 12/02/18 00:30 Plt Count 422 K/mm3 (140-440) 12/02/18 00:30 Lymph % (Auto) [place] 12/02/18 00:30 [place] % (Auto) [place] 12/02/18 00:30 Eos % (Auto) [place] 12/02/18 00:30 Baso % (Auto) [place] 12/02/18 00:30 Lymph # [place] 12/02/18 00:30 [place] # [place] 12/02/18 00:30 Eos # [place] 12/02/18 00:30 Baso # [place] 12/02/18 00:30 Add Manual Diff Complete 12/02/18 00:30 Total Counted 100 12/02/18 00:30 Seg Neutrophils % [place] 12/02/18 00:30 Seg Neuts % (Manual) 35.0 % (40.0-70.0) L 12/02/18 00:30 3.0 % 12/02/18 00:30 41.0 % (13.4-35.0) H 12/02/18 00:30 Reactive Lymphs % (Man) 0 % 12/02/18 00:30 11.0 % (0.0-7.3) H 12/02/18 00:30 6.0 % (0.0-4.3) H 12/02/18 00:30 0 % (0.0-1.8) 12/02/18 00:30 2.0 % 12/02/18 00:30 0 % 12/02/18 00:30 2.0 % 12/02/18 00:30 0 % 12/02/18 00:30 Nucleated RBC % Not Reportable 12/02/18 00:30 Seg Neutrophils # [place] 12/02/18 00:30 Seg Neutrophils # Man 4.1 K/mm3 (1.8-7.7) 12/02/18 00:30 Band Neutrophils # 0.3 K/mm3 12/02/18 00:30 4.8 K/mm3 (1.2-5.4) 12/02/18 00:30 Abs React Lymphs (Man) 0.0 K/mm3 12/02/18 00:30 1.3 K/mm3 (0.0-0.8) H 12/02/18 00:30 0.7 K/mm3 (0.0-0.4) H 12/02/18 00:30 0.0 K/mm3 (0.0-0.1) 12/02/18 00:30 0.2 K/mm3 12/02/18 00:30 0.0 K/mm3 12/02/18 00:30 0.2 K/mm3 12/02/18 00:30 Blast Cells # 0.0 K/mm3 12/02/18 00:30 WBC Morphology Not Reportable 12/02/18 00:30 Hypersegmented Neuts Not Reportable 12/02/18 00:30 Hyposegmented Neuts Not Reportable 12/02/18 00:30 Hypogranular Neuts Not Reportable 12/02/18 00:30 Not Reportable 12/02/18 00:30 Not Reportable 12/02/18 00:30 Not Reportable 12/02/18 00:30 Not Reportable 12/02/18 00:30 Not Reportable 12/02/18 00:30 Not Reportable 12/02/18 00:30 Appears normal 12/02/18 00:30 Not Reportable 12/02/18 00:30 Plt Clumps, EDTA Not Reportable 12/02/18 00:30 Not Reportable 12/02/18 00:30 Rare 12/02/18 00:30 Not Reportable 12/02/18 00:30 Plt Morphology Comment Not Reportable 12/02/18 00:30 RBC Morphology Not Reportable 12/02/18 00:30 Dimorphic RBCs Not Reportable 12/02/18 00:30 Not Reportable 12/02/18 00:30 Not Reportable 12/02/18 00:30 Not Reportable 12/02/18 00:30 1+ 12/02/18 00:30 Not Reportable 12/02/18 00:30 Not Reportable 12/02/18 00:30 Not Reportable 12/02/18 00:30 Not Reportable 12/02/18 00:30 Not Reportable 12/02/18 00:30 Not Reportable 12/02/18 00:30 Not Reportable 12/02/18 00:30 Few 12/02/18 00:30 Not Reportable 12/02/18 00:30 Not Reportable 12/02/18 00:30 Not Reportable 12/02/18 00:30 Not Reportable 12/02/18 00:30 Not Reportable 12/02/18 00:30 Not Reportable 12/02/18 00:30 Not Reportable 12/02/18 00:30 Acanthocytes (Spur) Not Reportable 12/02/18 00:30 Rouleaux Not Reportable 12/02/18 00:30 Not Reportable 12/02/18 00:30 Not Reportable 12/02/18 00:30 Not Reportable 12/02/18 00:30 Not Reportable 12/02/18 00:30 Hem Pathologist Commnt No 12/02/18 00:30 PT 14.4 Sec. (12.2-14.9) 12/02/18 10:50 INR 1.15 (0.87-1.13) H 12/02/18 10:50 APTT 26.5 Sec. (24.2-36.6) 12/02/18 10:50 1085.94 ng/mlDDU (0-234) H 12/02/18 00:30 POC ABG pH 7.150 (7.35-7.45) L 12/02/18 07:52 POC ABG pCO2 56.3 (35-45) H 12/02/18 07:52 POC ABG pO2 53 (80-105) L 12/02/18 07:52 POC ABG HCO3 19.6 (22-26 mml/L) 12/02/18 07:52 POC ABG Total CO2 21 (23-27mmol/L) 12/02/18 07:52 POC ABG O2 Sat 76 12/02/18 07:52 POC ABG Base Excess -9 ((-2) - (+3)mmol/L) 12/02/18 07:52 100 % 12/02/18 07:52 Sodium 143 mmol/L (137-145) 12/02/18 00:30 Potassium 3.1 mmol/L (3.6-5.0) L 12/02/18 00:30 Chloride 103.7 mmol/L (98-107) 12/02/18 00:30 Carbon Dioxide 21 mmol/L (22-30) L 12/02/18 00:30 21 mmol/L 12/02/18 00:30 BUN 20 mg/dL (7-17) H 12/02/18 00:30 1.2 mg/dL (0.7-1.2) 12/02/18 00:30 Estimated GFR 57 ml/min 12/02/18 00:30 17 % 12/02/18 00:30 Glucose 222 mg/dL (65-100) H 12/02/18 00:30 Lactic Acid 5.90 mmol/L (0.7-2.0) H* 12/02/18 10:50 Calcium 9.0 mg/dL (8.4-10.2) 12/02/18 00:30 1322 units/L (30-135) H 12/02/18 10:50 CK-MB (CK-2) 216.7 ng/mL (0.0-4.0) H 12/02/18 10:50 CK-MB (CK-2) Rel Index 16.3 (0-4) H 12/02/18 10:50 0.871 ng/mL (0.00-0.029) H* D 12/02/18 10:50 4.30 mg/dL (0.00-1.30) H 12/02/18 10:50 Triglycerides 358 mg/dL (2-149) H 12/02/18 03:14 Cholesterol 111 mg/dL (50-199) 12/02/18 03:14 42 mg/dL (50-130) L 12/02/18 03:14 29 mg/dL (40-59) L 12/02/18 03:14 3.82 % 12/02/18 03:14 Colorless (Yellow) 12/02/18 02:58 Clear (Clear) 12/02/18 02:58 7.0 (5.0-7.0) 12/02/18 02:58 Ur Specific [place] 1.008 (1.003-1.030) 12/02/18 02:58 100 mg/dl mg/dL (Negative) 12/02/18 02:58 >=500 mg/dL (Negative) 12/02/18 02:58 Neg mg/dL (Negative) 12/02/18 02:58 Sm (Negative) 12/02/18 02:58 Neg (Negative) 12/02/18 02:58 Neg (Negative) 12/02/18 02:58 < 2.0 mg/dL (<2.0) 12/02/18 02:58 Ur Leukocyte Esterase Neg (Negative) 12/02/18 02:58 12.0 /HPF (0.0-6.0) H 12/02/18 02:58 7.0 /HPF (0.0-6.0) 12/02/18 02:58 U Epithel Cells (Auto) < 1.0 /HPF (0-13.0) 12/02/18 02:58 Few /HPF 12/02/18 02:58 Presumptive negative 12/02/18 02:58 Presumptive negative 12/02/18 02:58 Ur Barbiturates Screen Presumptive negative 12/02/18 02:58 Ur Phencyclidine Scrn Presumptive negative 12/02/18 02:58 Ur Amphetamines Screen Presumptive negative 12/02/18 02:58 U Benzodiazepines Scrn Presumptive negative 12/02/18 02:58 Presumptive negative 12/02/18 02:58 U Marijuana (THC) Screen Presumptive positive 12/02/18 02:58 Disclamer 12/02/18 02:58 Active Medications - Current Medications Current Medications: Generic Name Dose Route Start Last Admin Trade Name Freq PRN Reason Stop Dose Admin Acetaminophen 650 mg 12/02/18 05:03 Tylenol PO Q4H PRN Pain MILD(1-3)/Fever >100.5/TORRES Albuterol/Ipratropium 1 ampul 12/02/18 08:00 12/02/18 08:39 Duoneb *Not For Prn Use* IH 1 ampul Q6HRT DC Administration Aspirin 325 mg 12/02/18 12:00 Ecotrin PO QDAY DC Famotidine 20 mg 12/02/18 10:00 Pepcid IV BID DC Fentanyl 50 mcg 12/02/18 04:00 Sublimaze IV Q10MIN PRN ANALGESIA Hydrophilic Ointment 1 applic 12/02/18 00:45 Vaseline Lip Therapy TP Q2HR PRN Dry Lips Amiodarone HCl 900 mg/ 500 mls @ 33.333 mls/hr 12/02/18 01:00 12/02/18 07:30 Dextrose IV 0.5 mg/min DIRECT DC 16.667 mls/hr Titration Protocol 1 MG/MIN Propofol 1,000 mg in 100 mls @ 2.82 mls/hr 12/02/18 01:00 12/02/18 04:07 Diprivan 10 Mg/Ml IV 10 mcg/kg/min TITR DC 5.64 mls/hr Titration Protocol 5 MCG/KG/MIN Fentanyl Citrate 2,000 mcg in 100 mls @ 4.7 mls/hr 12/02/18 04:00 12/02/18 09:34 Fentanyl Drip Premix IV 0.5 mcg/kg/hr TITR DC 2.35 mls/hr Titration Protocol 1 MCG/KG/HR Norepinephrine 4 mg in 250 mls @ 7.5 mls/hr 12/02/18 04:15 12/02/18 09:30 Levophed Drip 4 Mg/Ns 250 Ml IV Infused TITR DC Titration Protocol 2 MCG/MIN Piperacillin Sod/Tazobactam Sod 4.5 gm in 100 mls @ 200 mls/hr 12/02/18 10:00 Zosyn/Ns 4.5gm/100ml IV Q8H DC Protocol Sodium Chloride 1,000 mls @ 150 mls/hr 12/02/18 06:00 Nacl 0.9% 1000 Ml IV DIRECT DC Vasopressin 20 unit/ Sodium 101 mls @ 9.09 mls/hr 12/02/18 08:00 12/02/18 07:45 Chloride IV 0.03 units/min TITR DC 9.09 mls/hr Administration Protocol 0.03 UNITS/MIN Levofloxacin/Dextrose 500 mg in 100 mls @ 100 mls/hr 12/02/18 12:00 Levaquin 500mg/100ml IV Q24H [facility] Protocol Heparin Sodium/Sodium Chloride 25,000 unit in 500 mls @ 20 mls/hr 12/02/18 11:00 Heparin/ 0.45% Nacl-25,000 Unit/500 Ml IV TITRATE [facility] Protocol 1,000 UNITS/HR Potassium Chloride 10 meq in 100 mls @ 100 mls/hr 12/02/18 11:00 Kcl 10meq/100ml IV 12/02/18 14:59 Q1H [facility] Multi-Ingred Cream/Lotion/Oil/Oint 1 applic 12/02/18 00:45 Artificial Tears Ophth Oint OU Q4HR PRN Dry Eye(s) Ondansetron HCl 4 mg 12/02/18 05:03 Zofran IV Q8H PRN Nausea And Vomiting Sodium Chloride 10 ml 12/02/18 10:00 Sodium Chloride Flush Syringe 10 Ml IV BID DC Sodium Chloride 10 ml 12/02/18 05:03 Sodium Chloride Flush Syringe 10 Ml IV PRN PRN LINE FLUSH Nutrition/Malnutrition Assess - Dietary Evaluation Nutrition/Malnutrition Findings: Nutrition Notes Start: 12/02/18 08:27 Freq: Status: Active Protocol: Document 12/02/18 08:27 LP (Rec: 12/02/18 08:33 LP [id number]) Nutrition Notes Need for Assessment generated from: MD Order Initial or Follow up Assessment Current Diagnosis Hypertension,Respiratory Failure Other Pertinent Diagnosis Cardiac arrest Current Diet NPO Labs/Tests K 3.1 BUN 20 BG 222 TG 358 Pertinent Medications Propofol Height 5 ft 6 in Weight 94 kg [place] Body Weight (kg) 59.09 BMI 33.4 Subjective/Other Information Consult for evaluate nutrition intake. Pt on vent with NGT to LIS. Burn Absent Trauma Absent #1 Nutrition Diagnosis Inadequate oral intake Etiology vent As Evidenced by Signs and Symptoms Pt unable to consume PO Is patient on ventilator? Yes Is Patient Ambulatory and/or Out of Bed No REE-([facility]-confined to bed) 8839.156 Calculation Used for Recommendations [facility] Additional Notes Protein needs are 118g (2g/kg IBW) Fluid needs are 1ml/kcal Nutrition Intervention Change Diet Order: TF consult or diet advancement when extubated Goal #1 TF consult or diet advancement Anticipated Discharge Needs: Unable to determine at this time Follow-Up By: 12/04/18 Additional Comments Follow for TF consult or diet advancement
[2018-12-02] MEDS: ECOTRIN PO SCH (12:54)
[2018-12-02] MEDS: LEVAQUIN 500MG/100ML 500 MG/100 ML BAG IV SCH (12:55)
--- NOTE | 2018-12-02 13:12 | Consultation ---
PULMONARY CRITICAL CARE CONSULTATION CONSULTING PHYSICIAN: Dr. Lashay Mojica. REASON FOR CONSULTATION: Acute hypoxemic respiratory failure, on mechanical ventilatory support, really acute respiratory distress syndrome. CHIEF COMPLAINT AND HISTORY OF PRESENT ILLNESS: The patient is a 53-year-old -[place] female with past medical history significant amongst other things for a diagnosis of hypertension and hyperlipidemia. She is also obese, came into the Emergency Room complaining of chest pain while she was being triaged. She developed nausea and then all of a sudden passed out, became short of breath. She never lost a pulse; however, when they moved her into the ER, she lost her pulse, she went into VFib, she received a cardioversion and ultimately, there was return of spontaneous circulation. She was started on amiodarone drip, then she became hypotensive. Of note, the patient was reported to have vomited with overt aspiration in the Emergency Room. She was ultimately stabilized and brought up to the Intensive Care Unit. I believe she might have had another near-cardiac arrest over there. When I stopped by to see her, she was on mechanical ventilator assist control. I think she was initially on 500 tidal volumes, rate of 24, PEEP of 10. She was able to at this point respond appropriately. She denied any ongoing chest pain. With regards to tobacco use/abuse history, she is described as a former smoker. I am unable to quantify how much smoking she did right now. She denied any new onset leg pain or swelling either unilaterally or bilaterally prior to coming to the hospital or any suggestion of venous thromboembolic phenomenon. This is as much of the history of presentation as I have. PAST MEDICAL HISTORY: Hypertension, hyperlipidemia, obesity. PAST SURGICAL HISTORY: She has had a D and C in the past. MEDICATIONS: She was on at the time I stopped by to see were reviewed, pertinent medications include the following: Tylenol 650 mg p.o. q. 4 hours p.r.n. mild pain or fevers. All p.o. meds via feeding tube, DuoNeb nebulizer treatments q.6 hours, amiodarone drip was going at 1 mg per hour, Lovenox 40 mg subcutaneous daily, Pepcid 20 mg IV b.i.d. Fentanyl drip had been going at 1 mcg/kg per hour. She was on a propofol drip, I believe at about 15 mcg per kilogram per minute when I saw her. Levophed was going at 20 mcg per minute, vasopressin at 0.03 units per minute and Zosyn 4.5 grams IV q.8 hours. ALLERGIES: No known drug allergies. DIET: Obese lady, acute weight loss or gain history is unknown. FAMILY AND SOCIAL HISTORY: Apparently, lives in the community. No current alcohol, tobacco, or illicit drug use or abuse. She is described as a former smoker. REVIEW OF SYSTEMS: Mostly unobtainable secondary to the patient's medical and mental condition. She denied acute chest pain. Denied nausea. Since she has been here, no gross hematochezia or melena, no gross hematuria, no hematemesis, no bloody tracheal secretions, no witnessed seizures. Complete 13-system review of systems obtained as best as I could. Pertinent positives and/or negatives as in body of history above, otherwise unobtainable. PHYSICAL EXAMINATION: VITAL SIGNS: At presentation, temperature was 98.4 degrees Fahrenheit when first temperature recorded here in the ICU. At presentation; pulse was 94, respiratory rate 22, blood pressure 139/108, O2 sats were 95%, inspired oxygen concentration at that time was not recorded. GENERAL: Obese, middle-aged -[place]ian female, normocephalic, atraumatic, on the mechanical ventilator, overbreathing the set rate, in moderate respiratory distress. HEAD, EYES, EARS, NOSE AND THROAT: She is anicteric. No conjunctival erythema. Oropharynx was moist. Endotracheal tube was taped to the lips around 23-24 cm. No gross jugular venous distention, no thyromegaly. Grossly, there were no palpable lymph nodes in the supraclavicular or submandibular lymph node chains. LUNGS: Auscultation of both lung toussaint revealed occasional bilateral rales. No overt wheezing. HEART: Heart sounds 1 and 2 are heard at the time of my evaluation, regular rate and rhythm without rubs or murmurs. ABDOMEN: Soft, full, bowel sounds are positive, nontender, no palpable hepatosplenomegaly. EXTREMITIES: Without overt digital clubbing or cyanosis and no pedal edema. Pedal pulses are palpable and strong bilaterally, 2+. NEUROLOGIC: Pupils equal, round, about 4 mm, reactive to light. Extraocular muscle movements appeared intact. She had spontaneous movements to all 4 extremities. SKIN: Normal turgor without overt cellulitis or rash. LABORATORY DATA: From my review are as follows: Admission white cell count 11.6 with a hemoglobin of 12.8, hematocrit of 42.1, and platelet count of 422. No significant band, neutrophils reported. D-dimer was elevated at 1085. Atrial blood gas at presentation showed a pH of 7.21, pCO2 of 55, pO2 of 121 that was on 100% FiO2 on the above-mentioned settings. Most recent gas showed a pH of 7.15, pCO2 of 56 and a pO2 of 53 that was on 100%. Serum sodium was 143, potassium 3.1, chloride 104, bicarbonate 21, BUN 20, creatinine 1.2, glucose 222. Troponin was 0.054 at presentation. Triglycerides 358. LDL was low at 42. Urinalysis was unremarkable, negative for nitrites and leukocyte esterase. She did have 12 white cells per high-power field. Urine drug screen was presumptive positive only for THC. Two sets of blood cultures, no growth to date. Chest x-ray is rotated to the left. There is gross cardiomegaly. Endotracheal tube tip is at the lower level of the clavicular head. A CT angiogram of the chest was also done. I have reviewed it as well as the radiologist's interpretation. She has dense bilateral airspace disease and atelectasis without overt air bronchograms involving both lower lobes medially and the right upper lobe in particular. No filling defects are seen consistent with significant pulmonary emboli. No gross pneumothorax, no gross bony fractures. A 12-lead EKG was done at that time, which showed atrial fibrillation with a rapid ventricular response with a total rate of about [address] elevations. This was done around 2358 hours on 12/01/2018. ASSESSMENT: 1. Acute hypoxemic respiratory failure, on mechanical ventilatory support. 2. Acute respiratory distress syndrome. 3. Aspiration pneumonia. 4. Status post cardiac arrest with return of spontaneous circulation. 5. Obesity. 6. Hypertension. 7. Hyperlipidemia. 8. History of peripheral vascular disease. 9. Leukocytosis that is mild. 10. Elevated D-dimer. 11. Hypercapnic respiratory failure. 12. Elevated serum troponins. 13. Hypokalemia. 14. Mild metabolic acidosis. 15. Severe sepsis with shock. PLAN: I have asked that we increase the set rate to 30 per minute while also reducing the tidal volumes to 450, try and get as close to 4-6 meals per kilogram ideal body weight as possible. We will accept permissive hypercapnia. I have increased the PEEP also to 12 and we will try and get the PEEP as high as 16 depending on her blood pressure, and if she tolerates the incremental changes and positive end expiratory pressure, we will wean vasopressors to keep mean arterial pressures greater than or equal to about 65 mmHg. She has been pancultured. Tracheal aspirate will also be sent. We will continue empiric Zosyn, but I will also add Levaquin for coverage of atypical pneumonias. She is appropriately on GI and DVT prophylaxis. Bilateral lower extremity Dopplers will be done to complete the venous thromboembolic disorder workup in light of her risk factors. Cardiology consultation I believe has been placed. I will defer to the warehouse distribution manager in terms of the acute coronary syndrome workup. If none has been placed, I will go ahead and consult one. Enteral nutrition will be the feeding modality of choice. Ventilator-associated pneumonia bundle has been instituted. Bronchodilators, routine pulmonary hygiene will be per the respiratory therapist. Again, flu and pneumonia vaccination will be addressed per protocol. Thank you very much for the consult, Dr. Mojica. We will follow along and make further recommendations as picture progresses/becomes clear. She is critically ill, on life-sustaining interventions including mechanical ventilatory support at very high risk of . At this time, I spent about 35-40 minutes of critical care time without overlap and excluding any procedural time that may be necessary. JOB# [id number] ASHWIN/COOPER MUÑOZ
--- NOTE | 2018-12-02 14:59 | XRay Report ---
CHEST 1 VIEW INDICATION: R arm PICC placement. COMPARISON: Exam is compared to earlier same day FINDINGS: SUPPORT DEVICES: Endotracheal tubes in good position. Nasogastric tube has tip in the stomach. PICC l ine has tip in superior vena cava HEART / MEDIASTINUM: No significant abnormality. LUNGS / PLEURA: Progressive airspace changes are present throughout both lungs. No pneumothorax. ADDITIONAL FINDINGS: IMPRESSION: 1. Progressive bilateral airspace process worrisome for pneumonia. Pulmonary edema could have a simil ar appearance Signer Name: Angel Castle MD Signed: 12/02/2018 2:55 PM Workstation Name: [id number]
[2018-12-02] MEDS: PEPCID IV SCH ×2 (17:35→21:43)
[2018-12-02] MEDS ORDERED: INTROPIN DRIP 800 MG/D5W 250 ML 800 MG/250 ML BAG IV SCH (19:00)
[2018-12-02] MEDS: HEPARIN/ 0.45% NACL-25,000 UNIT/500 ML 25,000 UNIT/500 ML BAG IV SCH (19:39)
[2018-12-02] MEDS: SODIUM BICARBONATE 150 MEQ in D5W 1,000 ML IV SCH (19:39)
[2018-12-02] MEDS ORDERED: NACL 0.9% 500 ML 500 ML ONE (21:26)
[2018-12-02] MEDS: SODIUM CHLORIDE FLUSH SYRINGE 10 ML IV SCH (21:43)
[2018-12-03] MEDS: DUONEB *Not for PRN Use IH SCH ×4 (02:36→20:10)
[2018-12-03] MEDS: ZOSYN/NS 4.5GM/100ML 4.5 GM/100 ML VIAL IV SCH ×3 (02:45→10:59)
[2018-12-03] MEDS: LEVOPHED DRIP 4 MG/NS 250 ML 4 MG/250 ML BAG IV SCH ×2 (03:45→21:22)
--- NOTE | 2018-12-03 03:57 | XRay Report ---
CHEST 1 VIEW INDICATION / CLINICAL INFORMATION: follow up respiratory failure. COMPARISON: 12/02/2018 FINDINGS: SUPPORT DEVICES: Endotracheal tube, nasogastric tube HEART / MEDIASTINUM: No significant abnormality. LUNGS / PLEURA: Bilateral airspace disease has improved No pneumothorax. ADDITIONAL FINDINGS: No significant additional findings. IMPRESSION: Bilateral airspace disease has improved since yesterday. No other interval change. Signer Name: Eriberto Dela Cruz MD FACR Signed: 12/03/2018 3:53 AM Workstation Name: [email or web address]
[2018-12-03] MEDS: Vasostrict 20 UNIT in NACL 0.9% 100 ML IV SCH ×2 (04:03→15:47)
[2018-12-03 04:40] LABS: Hematocrit 32.7 % (30.3-42.9); Hemoglobin 10.8 gm/dl (10.1-14.3); Mean Corpuscular HGB Conc 33 % (30-34); Mean Corpuscular Volume 84 fl (79-97); Platelet Count 248 K/mm3 (140-440); Red Cell Distribution Width 15.9 % (13.2-15.2)
[2018-12-03 04:46] LABS: Monocytes # (Auto) 0.3 K/mm3 (0.0-0.8); Monocytes % (Auto) 1.3 % (0.0-7.3)
[2018-12-03 05:02] LABS: Calcium 6.7 mg/dL (8.4-10.2)
[2018-12-03] MEDS: SODIUM BICARBONATE 150 MEQ in D5W 1,000 ML IV SCH ×2 (05:22→16:17)
[2018-12-03] MEDS: NACL 0.9% 1000 ML 1,000 ML IV SCH (05:23)
[2018-12-03 05:44] LABS: Band Neutrophils # (Manual) 3.7 K/mm3; Basophils % (Manual) 0 % (0.0-1.8); Eosinophils % (Manual) 0 % (0.0-4.3); Total Cells Counted 100
[2018-12-03 05:45] LABS: Anisocytosis Few; Platelet Estimate Consistent w Auto
--- NOTE | 2018-12-03 10:17 | Progress Note ---
Assessment and Plan Acute respiratory failure Extensive airspace disease on CT - improving Leukocytosis (WBC 26.3) Cardiopulmonary arrest Vfib requiring cardioversion in the ER MPI 09/16/2018 - normal Echo 09/16/2018 - normal LVEF Abnormal troponin likely type II SD post Vfib and electrical shock Echo this admission is showing significant deterioration in LVEF from 09/2018 Atrial fibrillation, new onset - resolved Right common femoral vein DVT - new diagnosis this admission Systemic Hypertension Peripheral vascular disease on cilostazol Hyperlipidemia Former smoker (quit in 2011) Morbid obesity Marijuana use Non-compliance with meds Recommendations: Discontinue IV amiodarone due to underlying junctional rhythm Wean pressors as tolerated Replace potassium Coronary angio when stable and extubated Discussed with family at the bedside Subjective Date of service: 12/03/18 Principal diagnosis: Vfib cardiac arrest Interval history: Patient is stable this morning Tele is showing junctional rhythm with a HR of 60 Objective Vital Signs Temp Pulse Pulse Pulse Resp Resp Resp 12/03/18 08:57 63 62 30 H 12/03/18 08:46 62 30 H 12/03/18 08:30 63 23 12/03/18 08:16 62 30 H 12/03/18 08:00 97.5 F L 61 30 H 12/03/18 07:46 60 30 H 12/03/18 07:30 62 30 H 12/03/18 07:16 64 30 H 12/03/18 07:00 65 30 H 12/03/18 06:46 60 14 12/03/18 06:30 62 16 12/03/18 06:16 61 15 12/03/18 06:00 59 L 15 12/03/18 05:46 58 L 11 L 12/03/18 05:30 67 13 12/03/18 05:16 68 11 L 12/03/18 05:00 59 L 26 H 12/03/18 04:46 62 16 12/03/18 04:30 62 21 12/03/18 04:16 62 11 L 12/03/18 04:00 65 15 12/03/18 03:57 98.9 F 12/03/18 03:56 98.9 F 12/03/18 03:49 61 12/03/18 03:46 68 12 12/03/18 03:30 68 17 12/03/18 03:16 67 18 12/03/18 03:00 65 26 H 12/03/18 02:46 63 30 H 12/03/18 02:30 63 30 H 12/03/18 02:16 62 30 H 12/03/18 02:00 64 62 28 H 30 H 12/03/18 01:45 64 30 H 12/03/18 01:30 64 30 H 12/03/18 01:16 65 30 H 12/03/18 01:00 66 30 H 12/03/18 00:45 68 30 H 12/03/18 00:30 72 30 H 12/03/18 00:16 68 30 H 12/03/18 00:00 98.8 F 66 29 H 12/02/18 23:45 65 30 H 12/02/18 23:30 64 30 H 12/02/18 23:15 66 30 H 12/02/18 23:00 65 30 H 12/02/18 22:45 65 30 H 12/02/18 22:30 65 30 H 12/02/18 22:15 65 30 H 12/02/18 22:00 61 27 H 12/02/18 21:46 66 30 H 12/02/18 21:30 65 30 H 12/02/18 21:15 66 30 H 12/02/18 21:03 70 19 12/02/18 21:00 67 30 H 12/02/18 20:46 68 30 H 12/02/18 20:38 69 23 12/02/18 20:30 68 24 12/02/18 20:16 67 27 H 12/02/18 20:09 67 12/02/18 20:00 98.9 F 71 29 H 12/02/18 19:46 73 30 H 12/02/18 19:44 77 27 H 12/02/18 19:30 66 30 H 12/02/18 19:16 64 30 H 12/02/18 19:00 65 30 H 12/02/18 16:00 97.8 F 30 H 12/02/18 15:30 68 15 12/02/18 15:20 70 27 H 12/02/18 15:10 71 20 12/02/18 15:00 67 21 12/02/18 14:50 73 19 12/02/18 14:40 74 23 12/02/18 14:30 76 33 H 12/02/18 14:20 77 32 H 12/02/18 14:10 77 36 H 12/02/18 14:09 77 12/02/18 14:00 75 36 H 12/02/18 13:50 76 35 H 12/02/18 13:40 77 36 H 12/02/18 13:30 77 38 H 12/02/18 13:20 73 37 H 12/02/18 13:10 75 38 H 12/02/18 13:00 77 38 H 12/02/18 12:50 75 39 H 12/02/18 12:40 76 37 H 12/02/18 12:30 76 39 H 12/02/18 12:20 77 34 H 12/02/18 12:10 76 38 H 12/02/18 12:00 98.6 F 76 40 H 12/02/18 11:50 75 38 H 12/02/18 11:40 75 37 H 12/02/18 11:30 76 34 H 12/02/18 11:21 75 12/02/18 11:20 76 36 H 12/02/18 11:10 75 40 H 12/02/18 11:00 74 38 H 12/02/18 10:50 74 37 H 12/02/18 10:40 73 39 H 12/02/18 10:30 73 37 H 12/02/18 10:20 72 41 H BP Pulse Ox 12/03/18 08:57 103/56 100 12/03/18 08:46 103/56 100 12/03/18 08:30 127/41 100 12/03/18 08:16 127/41 100 12/03/18 08:00 120/70 99 12/03/18 07:46 120/33 100 12/03/18 07:30 97/59 100 12/03/18 07:16 97/59 99 12/03/18 07:00 107/63 99 12/03/18 06:46 106/67 12/03/18 06:30 106/67 100 12/03/18 06:16 104/61 100 12/03/18 06:00 120/87 100 12/03/18 05:46 120/87 100 12/03/18 05:30 78/52 100 12/03/18 05:16 140/76 12/03/18 05:00 87/47 100 12/03/18 04:46 87/47 12/03/18 04:30 108/37 100 12/03/18 04:16 108/37 100 12/03/18 04:00 84/49 100 12/03/18 03:57 12/03/18 03:56 12/03/18 03:49 118/34 100 12/03/18 03:46 84/49 100 12/03/18 03:30 128/52 100 12/03/18 03:16 96/55 100 12/03/18 03:00 124/67 100 12/03/18 02:46 128/52 100 12/03/18 02:30 124/67 100 12/03/18 02:16 126/74 12/03/18 02:00 122/64 99 12/03/18 01:45 129/68 100 12/03/18 01:30 119/71 100 12/03/18 01:16 119/71 100 12/03/18 01:00 121/74 12/03/18 00:45 105/77 12/03/18 00:30 130/71 100 12/03/18 00:16 155/69 98 12/03/18 00:00 130/71 98 12/02/18 23:45 130/71 99 12/02/18 23:30 126/67 99 12/02/18 23:15 129/72 100 12/02/18 23:00 121/65 99 12/02/18 22:45 130/64 99 12/02/18 22:30 138/69 99 12/02/18 22:15 138/69 99 12/02/18 22:00 136/69 99 12/02/18 21:46 136/69 99 12/02/18 21:30 136/69 98 12/02/18 21:15 122/68 99 12/02/18 21:03 124/61 92 12/02/18 21:00 126/64 98 12/02/18 20:46 126/64 97 12/02/18 20:38 126/64 98 12/02/18 20:30 109/52 97 12/02/18 20:16 109/52 98 12/02/18 20:09 126/64 100 12/02/18 20:00 109/52 99 12/02/18 19:46 109/52 96 12/02/18 19:44 12/02/18 19:30 109/52 95 12/02/18 19:16 100/47 97 12/02/18 19:00 100/47 99 12/02/18 16:00 90 12/02/18 15:30 62/38 89 12/02/18 15:20 66/25 91 12/02/18 15:10 66/25 90 12/02/18 15:00 71/49 92 12/02/18 14:50 105/77 91 12/02/18 14:40 105/77 91 12/02/18 14:30 105/77 92 12/02/18 14:20 115/79 93 12/02/18 14:10 115/79 92 12/02/18 14:09 12/02/18 14:00 117/70 93 12/02/18 13:50 115/79 92 12/02/18 13:40 115/79 94 12/02/18 13:30 115/79 93 12/02/18 13:20 50/35 96 12/02/18 13:10 109/74 89 12/02/18 13:00 116/72 89 12/02/18 12:50 110/37 88 12/02/18 12:40 116/46 86 12/02/18 12:30 105/50 89 12/02/18 12:20 112/67 90 12/02/18 12:10 121/70 75 L 12/02/18 12:00 110/65 91 12/02/18 11:50 113/73 100 12/02/18 11:40 103/73 96 12/02/18 11:30 103/73 97 12/02/18 11:21 103/73 95 12/02/18 11:20 113/68 90 12/02/18 11:10 125/71 96 12/02/18 11:00 100/70 93 12/02/18 10:50 116/22 92 12/02/18 10:40 111/69 96 12/02/18 10:30 114/60 95 12/02/18 10:20 109/24 93 - Physical Examination HEENT: Positive: PERRL Cardiac: Positive: Reg Rate and Rhythm Lungs: Positive: Ventilated Respirations Abdomen: Positive: Soft - Labs and Meds Cardiac Enzymes 12/02/18 Range/Units 10:50 CK-MB (CK-2) 216.7 H (0.0-4.0) ng/mL Coagulation 12/02/18 Range/Units 10:50 PT 14.4 (12.2-14.9) Sec. INR 1.15 H (0.87-1.13) APTT 26.5 (24.2-36.6) Sec. CBC 12/03/18 Range/Units 04:07 WBC 26.3 H (4.5-11.0) K/mm3 RBC 3.90 (3.65-5.03) M/mm3 Hgb 10.8 (10.1-14.3) gm/dl Hct 32.7 D (30.3-42.9) % Plt Count 248 (140-440) K/mm3 [place] # 0.3 (0.0-0.8) K/mm3 Eos # 0.0 (0.0-0.4) K/mm3 Baso # 0.0 (0.0-0.1) K/mm3 Comprehensive Metabolic Panel 12/03/18 Range/Units 04:07 Sodium 139 (137-145) mmol/L Potassium 3.5 L (3.6-5.0) mmol/L Chloride 104.5 (98-107) mmol/L Carbon Dioxide 21 L (22-30) mmol/L BUN 19 H (7-17) mg/dL Creatinine 1.2 (0.7-1.2) mg/dL Glucose 252 H (65-100) mg/dL Calcium 6.7 L D (8.4-10.2) mg/dL - Imaging and Cardiology EKG: image reviewed
--- NOTE | 2018-12-03 10:34 | Progress Note ---
Assessment and Plan Assessment and plan: Septic shock. Patient with significant leukocytosis. Pressors to maintain MAP >65Continue IV antibiotics. Blood cultures negative 24 hours. ID consultation. Acute hypoxemic respiratory failure. Patient with extensive airspace disease on CT scan. Continue mechanical ventilation per pulmonary. Bilateral pneumonia. Continue IV antibiotics and follow serial chest x-ray. s/p cardiopulmonary/V. fib arrest. Patient with V. fib requiring cardioversion in the emergency room. MPI and echocardiogram September 2018 found to be normal. Coronary and show with stable extubated per cardiology. Acute on chronic systolic heart failure. Moderate global hypokinesis of the left ventricle with EF 30-35%. Septal wall hypertrophy observed. Right ventricular global systolic function also moderately reduced. Elevated troponin. Etiology likely secondary to V. fib arrest/electrical shock. New onset atrial fibrillation. Follow-up echocardiogram. Continue IV heparin. IV amiodarone discontinued due to underlying junctional rhythm. Aspirin daily. Hypertension. Patient actually hypotensive secondary to shock. Continue to monitor. Hyperlipidemia. Continue statin. Morbid obesity. The high probability of a clinically significant, sudden or life threatening deterioration of the [cardiovascular respiratory] system(s) required my full and direct attention, intervention and personal management. The aggregate critical care time was [33] minutes. This time is in addition to time spent performing reported procedures but includes the following: [x] Data Review and interpretation [x] Patient assessment and monitoring of vital signs [x] Documentation [x] Medication orders and management History Interval history: 53 year old female presenting with respiratory distress. She sustained a Vfib cardiac arrest requiring cardioversion in the ER (no tele strips available) She was intubated in the ER. CT scan revealing extensive airspace disease. Potassium on admission was 3.1. patient is awake and responsive. troponin noted mildly elevated with a positive MB index. Patient recently had a normal stress test in this hospital. Hospitalist Physical - Constitutional Vitals: Temp Pulse Resp BP Pulse Ox 97.5 F L 62 30 H 103/56 100 12/03/18 08:00 12/03/18 08:57 12/03/18 08:57 12/03/18 08:57 12/03/18 08:57 General appearance: Present: no acute distress, well-nourished - EENT Eyes: Present: PERRL, EOM intact ENT: hearing intact, clear oral mucosa, dentition normal - Neck Neck: Present: supple, normal ROM - Respiratory Respiratory effort: normal Respiratory: bilateral: CTA - Cardiovascular Rhythm: regular Heart Sounds: Present: S1 & S2. Absent: gallop, rub - Extremities Extremities: no ischemia, No edema, Full ROM - Abdominal General gastrointestinal: soft, non-tender, non-distended, normal bowel sounds - Integumentary Integumentary: Present: clear, warm, dry - Neurologic Neurologic: CNII-XII intact, moves all extremities Results - Labs CBC & Chem 7: 12/03/18 04:07 12/03/18 04:07 Labs: Laboratory Last Values WBC 26.3 K/mm3 (4.5-11.0) H 12/03/18 04:07 RBC 3.90 M/mm3 (3.65-5.03) 12/03/18 04:07 Hgb 10.8 gm/dl (10.1-14.3) 12/03/18 04:07 Hct 32.7 % (30.3-42.9) D 12/03/18 04:07 MCV 84 fl (79-97) 12/03/18 04:07 MCH 28 pg (28-32) 12/03/18 04:07 MCHC 33 % (30-34) 12/03/18 04:07 RDW 15.9 % (13.2-15.2) H 12/03/18 04:07 Plt Count 248 K/mm3 (140-440) 12/03/18 04:07 Lymph % (Auto) [employer] 12/02/18 00:30 [place] % (Auto) 1.3 % (0.0-7.3) 12/03/18 04:07 Eos % (Auto) 0.0 % (0.0-4.3) 12/03/18 04:07 Baso % (Auto) [employer] 12/02/18 00:30 Lymph # [employer] 12/02/18 00:30 Kings # 0.3 K/mm3 (0.0-0.8) 12/03/18 04:07 Eos # 0.0 K/mm3 (0.0-0.4) 12/03/18 04:07 Baso # 0.0 K/mm3 (0.0-0.1) 12/03/18 04:07 Add Manual Diff Complete 12/03/18 04:07 Total Counted 100 12/03/18 04:07 Seg Neutrophils % [employer] 12/02/18 00:30 Seg Neuts % (Manual) 76.0 % (40.0-70.0) H 12/03/18 04:07 14.0 % 12/03/18 04:07 6.0 % (13.4-35.0) L 12/03/18 04:07 Reactive Lymphs % (Man) 0 % 12/03/18 04:07 3.0 % (0.0-7.3) 12/03/18 04:07 0 % (0.0-4.3) 12/03/18 04:07 0 % (0.0-1.8) 12/03/18 04:07 1.0 % 12/03/18 04:07 0 % 12/03/18 04:07 0 % 12/03/18 04:07 0 % 12/03/18 04:07 Nucleated RBC % Not Reportable 12/03/18 04:07 Seg Neutrophils # 24.3 K/mm3 (1.8-7.7) H 12/03/18 04:07 Seg Neutrophils # Man 20.0 K/mm3 (1.8-7.7) H 12/03/18 04:07 Band Neutrophils # 3.7 K/mm3 12/03/18 04:07 1.6 K/mm3 (1.2-5.4) 12/03/18 04:07 Abs React Lymphs (Man) 0.0 K/mm3 12/03/18 04:07 0.8 K/mm3 (0.0-0.8) 12/03/18 04:07 0.0 K/mm3 (0.0-0.4) 12/03/18 04:07 0.0 K/mm3 (0.0-0.1) 12/03/18 04:07 0.3 K/mm3 12/03/18 04:07 0.0 K/mm3 12/03/18 04:07 0.0 K/mm3 12/03/18 04:07 Blast Cells # 0.0 K/mm3 12/03/18 04:07 WBC Morphology Not Reportable 12/03/18 04:07 Hypersegmented Neuts Not Reportable 12/03/18 04:07 Hyposegmented Neuts Not Reportable 12/03/18 04:07 Hypogranular Neuts Not Reportable 12/03/18 04:07 Not Reportable 12/03/18 04:07 Not Reportable 12/03/18 04:07 Not Reportable 12/03/18 04:07 Not Reportable 12/03/18 04:07 Not Reportable 12/03/18 04:07 Not Reportable 12/03/18 04:07 Consistent w auto 12/03/18 04:07 Not Reportable 12/03/18 04:07 Plt Clumps, EDTA Not Reportable 12/03/18 04:07 Not Reportable 12/03/18 04:07 Not Reportable 12/03/18 04:07 Not Reportable 12/03/18 04:07 Plt Morphology Comment Not Reportable 12/03/18 04:07 RBC Morphology Not Reportable 12/03/18 04:07 Dimorphic RBCs Not Reportable 12/03/18 04:07 Not Reportable 12/03/18 04:07 Not Reportable 12/03/18 04:07 Not Reportable 12/03/18 04:07 Few 12/03/18 04:07 Not Reportable 12/03/18 04:07 Not Reportable 12/03/18 04:07 Not Reportable 12/03/18 04:07 Not Reportable 12/03/18 04:07 Not Reportable 12/03/18 04:07 Not Reportable 12/03/18 04:07 Not Reportable 12/03/18 04:07 Not Reportable 12/03/18 04:07 Not Reportable 12/03/18 04:07 Not Reportable 12/03/18 04:07 Not Reportable 12/03/18 04:07 Not Reportable 12/03/18 04:07 Not Reportable 12/03/18 04:07 Not Reportable 12/03/18 04:07 Not Reportable 12/03/18 04:07 Acanthocytes (Spur) Not Reportable 12/03/18 04:07 Rouleaux Not Reportable 12/03/18 04:07 Not Reportable 12/03/18 04:07 Not Reportable 12/03/18 04:07 Not Reportable 12/03/18 04:07 Not Reportable 12/03/18 04:07 Hem Pathologist Commnt No 12/03/18 04:07 PT 14.4 Sec. (12.2-14.9) 12/02/18 10:50 INR 1.15 (0.87-1.13) H 12/02/18 10:50 APTT 26.5 Sec. (24.2-36.6) 12/02/18 10:50 1085.94 ng/mlDDU (0-234) H 12/02/18 00:30 Heparin Anti-Xa Level < 0.10 U.I./ml (0.3-0.7) L 12/03/18 09:07 POC ABG pH 7.326 (7.35-7.45) L 12/03/18 06:30 POC ABG pCO2 39.3 (35-45) 12/03/18 06:30 POC ABG pO2 290 (80-105) H 12/03/18 06:30 POC ABG HCO3 20.5 (22-26 mml/L) 12/03/18 06:30 POC ABG Total CO2 22 (23-27mmol/L) 12/03/18 06:30 POC ABG O2 Sat 100 12/03/18 06:30 POC ABG Base Excess -5 ((-2) - (+3)mmol/L) 12/03/18 06:30 100 % 12/03/18 06:30 Sodium 139 mmol/L (137-145) 12/03/18 04:07 Potassium 3.5 mmol/L (3.6-5.0) L 12/03/18 04:07 Chloride 104.5 mmol/L (98-107) 12/03/18 04:07 Carbon Dioxide 21 mmol/L (22-30) L 12/03/18 04:07 17 mmol/L 12/03/18 04:07 BUN 19 mg/dL (7-17) H 12/03/18 04:07 1.2 mg/dL (0.7-1.2) 12/03/18 04:07 Estimated GFR 57 ml/min 12/03/18 04:07 16 % 12/03/18 04:07 Glucose 252 mg/dL (65-100) H 12/03/18 04:07 POC Glucose 135 (70-105) H 12/02/18 17:46 Lactic Acid 2.90 mmol/L (0.7-2.0) H* 12/03/18 09:07 Calcium 6.7 mg/dL (8.4-10.2) L D 12/03/18 04:07 1322 units/L (30-135) H 12/02/18 10:50 CK-MB (CK-2) 216.7 ng/mL (0.0-4.0) H 12/02/18 10:50 CK-MB (CK-2) Rel Index 16.3 (0-4) H 12/02/18 10:50 0.871 ng/mL (0.00-0.029) H* D 12/02/18 10:50 4.30 mg/dL (0.00-1.30) H 12/02/18 10:50 Triglycerides 358 mg/dL (2-149) H 12/02/18 03:14 Cholesterol 111 mg/dL (50-199) 12/02/18 03:14 42 mg/dL (50-130) L 12/02/18 03:14 29 mg/dL (40-59) L 12/02/18 03:14 3.82 % 12/02/18 03:14 Colorless (Yellow) 12/02/18 02:58 Clear (Clear) 12/02/18 02:58 7.0 (5.0-7.0) 12/02/18 02:58 Ur Specific [place] 1.008 (1.003-1.030) 12/02/18 02:58 100 mg/dl mg/dL (Negative) 12/02/18 02:58 >=500 mg/dL (Negative) 12/02/18 02:58 Neg mg/dL (Negative) 12/02/18 02:58 Sm (Negative) 12/02/18 02:58 Neg (Negative) 12/02/18 02:58 Neg (Negative) 12/02/18 02:58 < 2.0 mg/dL (<2.0) 12/02/18 02:58 Ur Leukocyte Esterase Neg (Negative) 12/02/18 02:58 12.0 /HPF (0.0-6.0) H 12/02/18 02:58 7.0 /HPF (0.0-6.0) 12/02/18 02:58 U Epithel Cells (Auto) < 1.0 /HPF (0-13.0) 12/02/18 02:58 Few /HPF 12/02/18 02:58 Presumptive negative 12/02/18 02:58 Presumptive negative 12/02/18 02:58 Ur Barbiturates Screen Presumptive negative 12/02/18 02:58 Ur Phencyclidine Scrn Presumptive negative 12/02/18 02:58 Ur Amphetamines Screen Presumptive negative 12/02/18 02:58 U Benzodiazepines Scrn Presumptive negative 12/02/18 02:58 Presumptive negative 12/02/18 02:58 U Marijuana (THC) Screen Presumptive positive 12/02/18 02:58 Disclamer 12/02/18 02:58 Active Medications - Current Medications Current Medications: Generic Name Dose Route Start Last Admin Trade Name Freq PRN Reason Stop Dose Admin Acetaminophen 650 mg 12/02/18 05:03 Tylenol PO Q4H PRN Pain MILD(1-3)/Fever >100.5/TORRES Albuterol/Ipratropium 1 ampul 12/02/18 08:00 12/03/18 08:57 Duoneb *Not For Prn Use* IH 1 ampul Q6HRT DC Administration Aspirin 325 mg 12/02/18 12:00 12/02/18 12:54 Ecotrin PO 325 mg QDAY DC Administration Famotidine 20 mg 12/02/18 10:00 12/02/18 21:43 Pepcid IV 20 mg BID DC Administration Fentanyl 50 mcg 12/02/18 04:00 Sublimaze IV Q10MIN PRN ANALGESIA Hydrophilic Ointment 1 applic 12/02/18 00:45 Vaseline Lip Therapy TP Q2HR PRN Dry Lips Propofol 1,000 mg in 100 mls @ 2.82 mls/hr 12/02/18 01:00 12/02/18 08:30 Diprivan 10 Mg/Ml IV 0 mcg/kg/min TITR DC 0 mls/hr Titration Protocol 5 MCG/KG/MIN Fentanyl Citrate 2,000 mcg in 100 mls @ 4.7 mls/hr 12/02/18 04:00 12/02/18 15:49 Fentanyl Drip Premix IV 1 mcg/kg/hr TITR DC 4.7 mls/hr Administration Protocol 1 MCG/KG/HR Norepinephrine 4 mg in 250 mls @ 7.5 mls/hr 12/02/18 04:15 12/03/18 06:45 Levophed Drip 4 Mg/Ns 250 Ml IV 4 mcg/min TITR DC 15 mls/hr Titration Protocol 2 MCG/MIN Piperacillin Sod/Tazobactam Sod 4.5 gm in 100 mls @ 200 mls/hr 12/02/18 10:00 12/03/18 02:46 Zosyn/Ns 4.5gm/100ml IV 200 mls/hr Q8H DC Administration Protocol Sodium Chloride 1,000 mls @ 100 mls/hr 12/02/18 06:00 12/03/18 05:23 Nacl 0.9% 1000 Ml IV 100 mls/hr DIRECT DC Administration Vasopressin 20 unit/ Sodium 101 mls @ 9.09 mls/hr 12/02/18 08:00 12/03/18 04:03 Chloride IV 0.03 units/min TITR DC 9.09 mls/hr Administration Protocol 0.03 UNITS/MIN Levofloxacin/Dextrose 500 mg in 100 mls @ 100 mls/hr 12/02/18 12:00 12/02/18 12:55 Levaquin 500mg/100ml IV 100 mls/hr Q24H DC Administration Protocol Heparin Sodium/Sodium Chloride 25,000 unit in 500 mls @ 20 mls/hr 12/02/18 11:00 12/03/18 02:39 Heparin/ 0.45% Nacl-25,000 Unit/500 Ml IV 1,200 units/hr TITRATE DC 24 mls/hr Titration Protocol 1,000 UNITS/HR Sodium Bicarbonate 150 meq/ 1,150 mls @ 100 mls/hr 12/02/18 19:00 12/03/18 05:22 Dextrose IV 12/05/18 06:29 100 mls/hr DIRECT DC Administration Dopamine HCl/Dextrose 800 mg in 250 mls @ 8.813 mls/hr 12/02/18 19:00 12/03/18 01:30 Intropin Drip 800 Mg/D5w 250 Ml IV 4 mcg/kg/min TITR DC 7.05 mls/hr Titration Protocol 5 MCG/KG/MIN Potassium Chloride 20 meq in 100 mls @ 100 mls/hr 12/03/18 11:00 Kcl 20meq/100ml IV 12/03/18 12:59 Q1H DC Multi-Ingred Cream/Lotion/Oil/Oint 1 applic 12/02/18 00:45 Artificial Tears Ophth Oint OU Q4HR PRN Dry Eye(s) Ondansetron HCl 4 mg 12/02/18 05:03 Zofran IV Q8H PRN Nausea And Vomiting Sodium Chloride 10 ml 12/02/18 10:00 12/02/18 21:43 Sodium Chloride Flush Syringe 10 Ml IV 10 ml BID DC Administration Sodium Chloride 10 ml 12/02/18 05:03 Sodium Chloride Flush Syringe 10 Ml IV PRN PRN LINE FLUSH Nutrition/Malnutrition Assess - Dietary Evaluation Nutrition/Malnutrition Findings: Nutrition Notes Start: 12/02/18 08:27 Freq: Status: Active Protocol: Document 12/02/18 08:27 LP (Rec: 12/02/18 08:33 LP [id number]) Nutrition Notes Need for Assessment generated from: MD Order Initial or Follow up Assessment Current Diagnosis Hypertension,Respiratory Failure Other Pertinent Diagnosis Cardiac arrest Current Diet NPO Labs/Tests K 3.1 BUN 20 BG 222 TG 358 Pertinent Medications Propofol Height 5 ft 6 in Weight 94 kg [place] Body Weight (kg) 59.09 BMI 33.4 Subjective/Other Information Consult for evaluate nutrition intake. Pt on vent with NGT to LIS. Burn Absent Trauma Absent #1 Nutrition Diagnosis Inadequate oral intake Etiology vent As Evidenced by Signs and Symptoms Pt unable to consume PO Is patient on ventilator? Yes Is Patient Ambulatory and/or Out of Bed No REE-([facility]-confined to bed) 8152.156 Calculation Used for Recommendations [facility] Additional Notes Protein needs are 118g (2g/kg IBW) Fluid needs are 1ml/kcal Nutrition Intervention Change Diet Order: TF consult or diet advancement when extubated Goal #1 TF consult or diet advancement Anticipated Discharge Needs: Unable to determine at this time Follow-Up By: 12/04/18 Additional Comments Follow for TF consult or diet advancement
[2018-12-03] MEDS: PEPCID IV SCH ×2 (10:59→21:23)
[2018-12-03] MEDS: ECOTRIN PO SCH (10:59)
[2018-12-03] MEDS ORDERED: HEPARIN 10,000 UNITS/10 ML IV ONE (11:34)
[2018-12-03] MEDS: KCL 20MEQ/100ML 20 MEQ/100 ML BAG IV SCH ×2 (12:05→13:29)
[2018-12-03] MEDS: fentaNYL DRIP Premix 2,000 MCG/100 ML BAG IV SCH (13:31)
--- NOTE | 2018-12-03 15:10 | Consultation ---
History of Present Illness - Reason for Consult Consult date: 12/03/18 Sepsis Requesting physician: KELLI MURRY - History of Present Illness The patient is a 53-year-old female with hypertension, hyperlipidemia, peripheral vascular disease presented to the emergency room on 12/02/2018 with complaints of chest pain. Apparently, while she was getting an EKG, she went into cardiac arrest, requiring defibrillation for ventricular fibrillation. She was noted to have aspiration of copious amounts of gastric contents. She was intubated and started on pressors as well as admitted to ICU. She was started on empiric antibiotics. Infectious diseases was consulted for antibiotic recommendations concerns for sepsis. Currently, she is intubated, in ICU. She is on 3 pressors: Dopamine, and he will fed and vasopressin. She does open eyes on commands. She denies any pain. History is limited due to intubation and mechanical ventilation. History obtained by chart review. Review of Systems: Limited due to intubation and mechanical ventilation, sedation. Past History Social history: other (former smoker.) Family history: other (Unable to confirm due to vent.) Medications and Allergies Allergies Allergy/AdvReac Type Severity Reaction Status Date / Time No Known Allergies Allergy Unverified 05/06/15 16:09 Home Medications Medication Instructions Recorded Confirmed Last Taken Type Acetaminophen [Acetaminophen TAB] 650 mg PO Q4H PRN #30 tablet 09/16/18 Unknown Rx Aspirin [Aspirin BABY CHEW TAB] 81 mg PO QDAY #30 tab.chew 09/16/18 12/02/18 12/01/18 Rx Cilostazol [Pletal] 75 mg PO BID #60 tablet 09/16/18 12/02/18 12/01/18 Rx Pantoprazole [Protonix] 40 mg PO QDAY #14 tablet 09/16/18 Unknown Rx Triamter/Hctz 37.5-25 mg 1 cap PO DAILY 09/16/18 12/02/18 12/01/18 History levoFLOXacin [Levaquin TAB] 500 mg PO QDAY #5 tablet 09/16/18 Unknown Rx AtorvaSTATin [Lipitor] 20 mg PO QHS MDD 20 mg 12/03/18 12/02/18 12/01/18 History amLODIPine [Norvasc] 10 mg PO DAILY 12/03/18 12/02/18 12/01/18 History cloNIDine [Catapres] 0.1 mg PO DAILY 12/03/18 12/02/18 12/01/18 History Active Meds: Active Medications Acetaminophen (Tylenol) 650 mg PO Q4H PRN PRN Reason: Pain MILD(1-3)/Fever >100.5/TORRES Albuterol/Ipratropium (Duoneb *Not For Prn Use*) 1 ampul IH Q6HRT [facility] Last Admin: 12/03/18 14:28 Dose: 1 ampul Documented by: Aspirin (Ecotrin) 325 mg PO QDAY [facility] Last Admin: 12/03/18 10:59 Dose: 325 mg Documented by: Famotidine (Pepcid) 20 mg IV BID [facility] Last Admin: 12/03/18 10:59 Dose: 20 mg Documented by: Fentanyl (Sublimaze) 50 mcg IV Q10MIN PRN PRN Reason: ANALGESIA Hydrophilic Ointment (Vaseline Lip Therapy) 1 applic TP Q2HR PRN PRN Reason: Dry Lips Propofol (Diprivan 10 Mg/Ml) 1,000 mg in 100 mls @ 2.82 mls/hr IV TITR DC; Protocol Last Titration: 12/02/18 08:30 Dose: 0 mcg/kg/min, 0 mls/hr Documented by: Fentanyl Citrate (Fentanyl Drip Premix) 2,000 mcg in 100 mls @ 4.7 mls/hr IV TITR DC; Protocol Last Admin: 12/03/18 13:31 Dose: 1 mcg/kg/hr, 4.7 mls/hr Documented by: Norepinephrine (Levophed Drip 4 Mg/Ns 250 Ml) 4 mg in 250 mls @ 7.5 mls/hr IV TITR DC; Protocol Last Titration: 12/03/18 06:45 Dose: 4 mcg/min, 15 mls/hr Documented by: Piperacillin Sod/Tazobactam Sod (Zosyn/Ns 4.5gm/100ml) 4.5 gm in 100 mls @ 200 mls/hr IV Q8H [facility]; Protocol Last Admin: 12/03/18 10:59 Dose: 200 mls/hr Documented by: Sodium Chloride (Nacl 0.9% 1000 Ml) 1,000 mls @ 100 mls/hr IV DIRECT DC Last Admin: 12/03/18 05:23 Dose: 100 mls/hr Documented by: Vasopressin 20 unit/ Sodium (Chloride) 101 mls @ 9.09 mls/hr IV TITR DC; Protocol Last Admin: 12/03/18 04:03 Dose: 0.03 units/min, 9.09 mls/hr Documented by: Levofloxacin/Dextrose (Levaquin 500mg/100ml) 500 mg in 100 mls @ 100 mls/hr IV Q24H DC; Protocol Last Admin: 12/02/18 12:55 Dose: 100 mls/hr Documented by: Heparin Sodium/Sodium Chloride (Heparin/ 0.45% Nacl-25,000 Unit/500 Ml) 25,000 unit in 500 mls @ 20 mls/hr IV TITRATE DC; Protocol Last Titration: 12/03/18 02:39 Dose: 1,200 units/hr, 24 mls/hr Documented by: Sodium Bicarbonate 150 meq/ (Dextrose) 1,150 mls @ 100 mls/hr IV DIRECT DC Stop: 12/05/18 06:29 Last Admin: 12/03/18 05:22 Dose: 100 mls/hr Documented by: Dopamine HCl/Dextrose (Intropin Drip 800 Mg/D5w 250 Ml) 800 mg in 250 mls @ 8.813 mls/hr IV TITR DC; Protocol Last Titration: 12/03/18 13:37 Dose: 3 mcg/kg/min, 5.288 mls/hr Documented by: Multi-Ingred Cream/Lotion/Oil/Oint (Artificial Tears Ophth Oint) 1 applic OU Q4HR PRN PRN Reason: Dry Eye(s) Ondansetron HCl (Zofran) 4 mg IV Q8H PRN PRN Reason: Nausea And Vomiting Sodium Chloride (Sodium Chloride Flush Syringe 10 Ml) 10 ml IV BID DC Last Admin: 12/02/18 21:43 Dose: 10 ml Documented by: Sodium Chloride (Sodium Chloride Flush Syringe 10 Ml) 10 ml IV PRN PRN PRN Reason: LINE FLUSH Physical Examination - Physical Exam Narrative exam: Physical Exam: Constitutional: sedated, intubated Head, Ears, Nose: Normocephalic, atraumatic. External ears, nose normal Eyes: Conjunctivae/corneas clear. No icterus. No ptosis. Neck: Supple, no meningeal signs Oral: intubated Cardiovascular: S1, S2 normal. Respiratory: Good air entry, clear to auscultation bilaterally GI: Soft, non-tender; bowel sounds normal. No peritoneal signs Musculoskeletal: No pedal edema, no cyanosis. Skin: No rash or abscess Hem/Lymphatic: No palpable cervical or supraclavicular nodes. No lymphangitis Psych: no agitation Neurological: sedated, intubated, on vent - Constitutional Vitals: Vital Signs Temp Pulse Resp BP Pulse Ox 97.5 F L 59 L 30 H 143/120 100 12/03/18 08:00 12/03/18 14:28 12/03/18 14:28 12/03/18 13:30 12/03/18 13:46 Temperature -Last 24 Hours Temperature 97.5 F Temperature 98.9 F Temperature 98.9 F Temperature 98.8 F Temperature 98.9 F Temperature 97.8 F Results - Labs CBC & Chem 7: 12/03/18 04:07 12/03/18 04:07 Labs: Abnormal lab results 12/02/18 12/02/18 12/02/18 Range/Units 17:46 18:09 20:18 WBC (4.5-11.0) K/mm3 RDW (13.2-15.2) % Seg Neuts % (Manual) (40.0-70.0) % Lymphocytes % (Manual) (13.4-35.0) % Seg Neutrophils # (1.8-7.7) K/mm3 Seg Neutrophils # Man (1.8-7.7) K/mm3 Heparin Anti-Xa Level (0.3-0.7) U.I./ml POC ABG pH 7.167 L 7.118 L (7.35-7.45) POC ABG pCO2 52.6 H 55.1 H (35-45) POC ABG pO2 79 L (80-105) Potassium (3.6-5.0) mmol/L Carbon Dioxide (22-30) mmol/L BUN (7-17) mg/dL Glucose (65-100) mg/dL POC Glucose 135 H (70-105) Lactic Acid (0.7-2.0) mmol/L Calcium (8.4-10.2) mg/dL Magnesium (1.7-2.3) mg/dL 12/03/18 12/03/18 12/03/18 Range/Units 01:47 04:07 04:07 WBC 26.3 H (4.5-11.0) K/mm3 RDW 15.9 H (13.2-15.2) % Seg Neuts % (Manual) 76.0 H (40.0-70.0) % Lymphocytes % (Manual) 6.0 L (13.4-35.0) % Seg Neutrophils # 24.3 H (1.8-7.7) K/mm3 Seg Neutrophils # Man 20.0 H (1.8-7.7) K/mm3 Heparin Anti-Xa Level < 0.10 L (0.3-0.7) U.I./ml POC ABG pH (7.35-7.45) POC ABG pCO2 (35-45) POC ABG pO2 (80-105) Potassium 3.5 L (3.6-5.0) mmol/L Carbon Dioxide 21 L (22-30) mmol/L BUN 19 H (7-17) mg/dL Glucose 252 H (65-100) mg/dL POC Glucose (70-105) Lactic Acid (0.7-2.0) mmol/L Calcium 6.7 L D (8.4-10.2) mg/dL Magnesium (1.7-2.3) mg/dL 12/03/18 12/03/18 12/03/18 Range/Units 06:30 09:07 09:07 WBC (4.5-11.0) K/mm3 RDW (13.2-15.2) % Seg Neuts % (Manual) (40.0-70.0) % Lymphocytes % (Manual) (13.4-35.0) % Seg Neutrophils # (1.8-7.7) K/mm3 Seg Neutrophils # Man (1.8-7.7) K/mm3 Heparin Anti-Xa Level < 0.10 L (0.3-0.7) U.I./ml POC ABG pH 7.326 L (7.35-7.45) POC ABG pCO2 (35-45) POC ABG pO2 290 H (80-105) Potassium (3.6-5.0) mmol/L Carbon Dioxide (22-30) mmol/L BUN (7-17) mg/dL Glucose (65-100) mg/dL POC Glucose (70-105) Lactic Acid 2.90 H* (0.7-2.0) mmol/L Calcium (8.4-10.2) mg/dL Magnesium (1.7-2.3) mg/dL 12/03/18 12/03/18 Range/Units 09:07 11:51 WBC (4.5-11.0) K/mm3 RDW (13.2-15.2) % Seg Neuts % (Manual) (40.0-70.0) % Lymphocytes % (Manual) (13.4-35.0) % Seg Neutrophils # (1.8-7.7) K/mm3 Seg Neutrophils # Man (1.8-7.7) K/mm3 Heparin Anti-Xa Level (0.3-0.7) U.I./ml POC ABG pH (7.35-7.45) POC ABG pCO2 (35-45) POC ABG pO2 (80-105) Potassium (3.6-5.0) mmol/L Carbon Dioxide (22-30) mmol/L BUN (7-17) mg/dL Glucose (65-100) mg/dL POC Glucose 158 H (70-105) Lactic Acid (0.7-2.0) mmol/L Calcium (8.4-10.2) mg/dL Magnesium 1.20 L (1.7-2.3) mg/dL - Imaging and Cardiology Chest x-ray: report reviewed, image reviewed (b/l airspace opacities) CT scan - chest: report reviewed, image reviewed (b/l airspace disease) Assessment and Plan Cultures: 12/02/2018 sputum culture: Usual respiratory nolan 12/02/2018 urine culture: No growth in 24 hours 12/02/2018 blood culture: No growth in 24 hours A/P: 53-year-old female with hypertension, hyperlipidemia, peripheral vascular disease presented to the emergency room on 12/02/2018 with complaints of chest pain, developed V.fib arrest, now with: 1) Shock, multifactorial: Cardiogenic versus septic. Patient with V. fib arrest. Developed bilateral aspiration pneumonia. On 3 pressors. 2) Bilateral pneumonia, aspiration pneumonia with acute respiratory failure: CXR and CT chest showed bilateral airspace disease. Noted to have gastric content aspiration on admission. Empirically treat with IV cefepime and Flagyl. Follow up culture results. 3) Mixed acidosis: on admission. Lactate elevated. 4) V.fib arrest: cardiology following. EF 30-35%. Recs: Follow-up cultures. Vancomycin is not needed. Empiric IV cefepime and Flagyl Will follow. Please call with questions. Dr. Rajat tiwari tomorrow. Kyle Cedeno MD, FACP [facility] ([facility]) C: [phone] O: [phone] F: [phone]
[2018-12-03] MEDS: FLAGYL 500 MG/100 ML 500 MG/100 ML BAG IV SCH ×2 (16:01→21:23)
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
[2018-12-03] MEDS: MAXIPIME/NS 1 GM/100 ML 1 GM/100 ML BAG IV SCH ×2 (16:14→21:24)
[2018-12-03] MEDS: HEPARIN/ 0.45% NACL-25,000 UNIT/500 ML 25,000 UNIT/500 ML BAG IV SCH (17:59)
[2018-12-03] MEDS: SODIUM CHLORIDE FLUSH SYRINGE 10 ML IV SCH (21:23)
[2018-12-04] MEDS: DUONEB *Not for PRN Use IH SCH ×4 (01:32→19:41)
--- NOTE | 2018-12-04 03:13 | XRay Report ---
CHEST 1 VIEW INDICATION / CLINICAL INFORMATION: follow up respiratory failure. COMPARISON: 12/03/2018 FINDINGS: SUPPORT DEVICES: Unchanged HEART / MEDIASTINUM: No significant abnormality. LUNGS / PLEURA: Bilateral airspace disease has improved No pneumothorax. ADDITIONAL FINDINGS: No significant additional findings. IMPRESSION: Bilateral airspace disease continues to improve but has not completely resolved since yesterday. Signer Name: Eriberto Dela Cruz MD FACR Signed: 12/04/2018 3:09 AM Workstation Name: [email or web address]
[2018-12-04] MEDS: FLAGYL 500 MG/100 ML 500 MG/100 ML BAG IV SCH ×3 (05:10→22:41)
[2018-12-04] MEDS: MAXIPIME/NS 1 GM/100 ML 1 GM/100 ML BAG IV SCH ×3 (05:10→21:21)
[2018-12-04 05:41] LABS: Hematocrit 25.2 % (30.3-42.9); Hemoglobin 8.3 gm/dl (10.1-14.3); Mean Corpuscular HGB Conc 33 % (30-34); Mean Corpuscular Volume 83 fl (79-97); Platelet Count 167 K/mm3 (140-440); Red Blood Count 3.04 M/mm3 (3.65-5.03)
[2018-12-04 05:53] LABS: BUN/Creatinine Ratio 16; Blood Urea Nitrogen 13 mg/dL (7-17); Hemolysis Index 0
[2018-12-04] MEDS ORDERED: NACL 0.9% 1000 ML 1,000 ML IV ONE (06:12)
[2018-12-04] MEDS ORDERED: LANTUS SUB-Q ONE (06:30)
[2018-12-04] MEDS: KCL 20MEQ/100ML 20 MEQ/100 ML BAG IV SCH ×2 (06:38→08:27)
[2018-12-04] MEDS: HumaLOG SUB-Q SCH ×3 (06:40→18:27)
[2018-12-04 07:30] LABS: Anisocytosis Few; Basophils % (Manual) 0 % (0.0-1.8); Eosinophils % (Manual) 0 % (0.0-4.3); Platelet Estimate Consistent w Auto; Total Cells Counted 100
[2018-12-04] MEDS: fentaNYL DRIP Premix 2,000 MCG/100 ML BAG IV SCH (08:55)
[2018-12-04] MEDS: PEPCID IV SCH ×2 (09:00→21:21)
[2018-12-04] MEDS ORDERED: MAGNESIUM SULFATE 4GM/100ML 4 GM/100 ML BAG IV ONE (09:00)
[2018-12-04] MEDS: ECOTRIN PO SCH (09:02)
--- NOTE | 2018-12-04 09:08 | Progress Note ---
Assessment and Plan Acute respiratory failure Extensive airspace disease on CT - improving Leukocytosis Cardiopulmonary arrest Vfib requiring cardioversion in the ER MPI 09/16/2018 - normal Echo 09/16/2018 - normal LVEF Abnormal troponin likely type II DE post Vfib and electrical shock Echo this admission is showing significant deterioration in LVEF from 09/2018 Atrial fibrillation, new onset - resolved Right common femoral vein DVT - new diagnosis this admission Systemic Hypertension Peripheral vascular disease on cilostazol Hyperlipidemia Former smoker (quit in 2011) Morbid obesity Marijuana use Non-compliance with meds Supportive cardiac management. Further cardiac evaluation depends on clinical course. Subjective Date of service: 12/04/18 Principal diagnosis: Vfib cardiac arrest Interval history: Patient is alert but remains on the vent and on pressors. Objective Vital Signs Temp Pulse Pulse Pulse Resp Resp BP 12/04/18 08:55 66 26 H 12/04/18 08:15 69 26 H 113/68 12/04/18 08:06 66 132/62 12/04/18 08:00 67 22 132/62 12/04/18 07:45 59 L 25 H 122/58 12/04/18 07:30 56 L 26 H 122/58 12/04/18 07:15 55 L 21 121/50 12/04/18 07:01 52 L 25 H 131/49 12/04/18 06:45 53 L 25 H 122/59 12/04/18 06:30 54 L 24 122/59 12/04/18 06:15 54 L 25 H 117/59 12/04/18 06:00 53 L 25 H 117/55 12/04/18 05:45 54 L 25 H 117/59 12/04/18 05:31 54 L 24 117/59 12/04/18 05:15 52 L 25 H 125/58 12/04/18 05:00 54 L 25 H 117/52 12/04/18 04:55 56 L 111/59 12/04/18 04:45 58 L 25 H 90/48 12/04/18 04:30 55 L 25 H 100/55 12/04/18 04:15 60 25 H 90/48 12/04/18 04:00 99.5 F 65 25 H 97/63 12/04/18 03:45 57 L 21 106/55 12/04/18 03:30 60 25 H 89/53 12/04/18 03:15 64 26 H 97/53 12/04/18 03:01 70 18 114/62 12/04/18 02:45 65 25 H 107/62 12/04/18 02:30 62 25 H 107/62 12/04/18 02:15 57 L 26 H 117/64 12/04/18 02:00 64 25 H 100/60 12/04/18 01:46 65 28 H 12/04/18 01:45 72 26 H 95/56 12/04/18 01:30 64 25 H 103/62 12/04/18 01:15 66 19 107/65 12/04/18 01:00 62 25 H 106/64 12/04/18 00:45 63 25 H 95/59 12/04/18 00:30 66 25 H 95/65 12/04/18 00:25 66 93/67 12/04/18 00:15 66 18 95/59 12/04/18 00:00 99.6 F 68 25 H 95/59 12/03/18 23:45 66 25 H 91/57 12/03/18 23:30 63 25 H 96/62 12/03/18 23:15 65 25 H 93/60 12/03/18 23:00 67 24 100/63 12/03/18 22:45 68 25 H 95/59 12/03/18 22:30 63 25 H 107/61 12/03/18 22:15 65 25 H 116/65 12/03/18 22:00 64 24 109/68 12/03/18 21:45 68 25 H 99/59 12/03/18 21:30 61 25 H 118/75 12/03/18 21:15 63 25 H 126/66 12/03/18 21:01 66 25 H 106/75 12/03/18 21:00 65 25 H 106/75 12/03/18 20:45 62 25 H 121/64 12/03/18 20:30 65 25 H 116/65 12/03/18 20:20 65 23 12/03/18 20:15 64 21 101/68 12/03/18 20:11 65 116/65 12/03/18 20:00 98.8 F 63 25 H 116/65 12/03/18 19:45 67 25 H 91/55 12/03/18 19:30 73 26 H 91/55 12/03/18 19:15 64 25 H 99/61 12/03/18 19:00 63 25 H 120/60 12/03/18 18:30 74 24 102/60 12/03/18 18:15 69 24 105/56 12/03/18 18:00 66 25 H 105/56 12/03/18 17:45 72 25 H 123/62 12/03/18 17:31 79 21 123/62 12/03/18 17:21 73 97/43 12/03/18 17:15 71 22 97/43 12/03/18 17:01 72 25 H 97/43 12/03/18 16:45 71 24 117/63 12/03/18 16:31 71 25 H 126/49 12/03/18 16:15 67 22 132/70 12/03/18 16:00 64 71 30 H 125/70 12/03/18 15:45 63 30 H 126/49 12/03/18 15:31 66 30 H 126/49 12/03/18 15:15 64 30 H 126/50 12/03/18 15:01 62 30 H 126/50 12/03/18 14:45 63 30 H 126/58 12/03/18 14:31 56 L 30 H 109/37 12/03/18 14:28 72 30 H 12/03/18 14:15 59 L 30 H 88/70 12/03/18 14:00 61 27 H 12/03/18 13:46 70 30 H 12/03/18 13:30 63 30 H 143/120 12/03/18 13:16 60 30 H 145/96 12/03/18 13:00 59 L 30 H 123/65 12/03/18 12:46 61 30 H 113/32 12/03/18 12:30 58 L 30 H 130/81 12/03/18 12:16 61 30 H 110/50 12/03/18 12:05 60 113/57 12/03/18 12:00 58 L 72 30 H 110/50 12/03/18 11:46 58 L 30 H 95/66 12/03/18 11:30 56 L 30 H 135/76 12/03/18 11:16 61 30 H 124/56 12/03/18 11:00 60 30 H 139/55 12/03/18 10:46 61 30 H 139/55 12/03/18 10:30 60 30 H 109/69 12/03/18 10:16 64 30 H 100/46 12/03/18 10:00 68 30 H 131/31 12/03/18 09:46 65 30 H 121/47 12/03/18 09:30 66 30 H 124/68 12/03/18 09:16 66 23 124/68 Pulse Ox 12/04/18 08:55 12/04/18 08:15 98 12/04/18 08:06 100 12/04/18 08:00 94 12/04/18 07:45 99 12/04/18 07:30 99 12/04/18 07:15 99 12/04/18 07:01 99 12/04/18 06:45 100 12/04/18 06:30 98 12/04/18 06:15 98 12/04/18 06:00 99 12/04/18 05:45 99 12/04/18 05:31 98 12/04/18 05:15 99 12/04/18 05:00 99 12/04/18 04:55 100 12/04/18 04:45 99 12/04/18 04:30 100 12/04/18 04:15 99 12/04/18 04:00 99 12/04/18 03:45 99 12/04/18 03:30 99 12/04/18 03:15 97 12/04/18 03:01 98 12/04/18 02:45 99 12/04/18 02:30 100 12/04/18 02:15 98 12/04/18 02:00 97 12/04/18 01:46 12/04/18 01:45 96 12/04/18 01:30 96 12/04/18 01:15 99 12/04/18 01:00 98 12/04/18 00:45 98 12/04/18 00:30 98 12/04/18 00:25 99 12/04/18 00:15 100 12/04/18 00:00 99 12/03/18 23:45 100 12/03/18 23:30 99 12/03/18 23:15 99 12/03/18 23:00 100 12/03/18 22:45 100 12/03/18 22:30 98 12/03/18 22:15 100 12/03/18 22:00 100 12/03/18 21:45 100 12/03/18 21:30 100 12/03/18 21:15 100 12/03/18 21:01 100 12/03/18 21:00 100 12/03/18 20:45 100 12/03/18 20:30 100 12/03/18 20:20 12/03/18 20:15 99 12/03/18 20:11 100 12/03/18 20:00 99 12/03/18 19:45 100 12/03/18 19:30 100 12/03/18 19:15 99 12/03/18 19:00 99 12/03/18 18:30 100 12/03/18 18:15 99 12/03/18 18:00 100 12/03/18 17:45 100 12/03/18 17:31 99 12/03/18 17:21 100 12/03/18 17:15 100 12/03/18 17:01 99 12/03/18 16:45 100 12/03/18 16:31 100 12/03/18 16:15 12/03/18 16:00 100 12/03/18 15:45 100 12/03/18 15:31 99 12/03/18 15:15 100 12/03/18 15:01 100 12/03/18 14:45 100 12/03/18 14:31 100 12/03/18 14:28 12/03/18 14:15 100 12/03/18 14:00 100 12/03/18 13:46 100 12/03/18 13:30 100 12/03/18 13:16 96 12/03/18 13:00 100 12/03/18 12:46 100 12/03/18 12:30 100 12/03/18 12:16 100 12/03/18 12:05 100 12/03/18 12:00 100 12/03/18 11:46 12/03/18 11:30 100 12/03/18 11:16 100 12/03/18 11:00 100 12/03/18 10:46 100 12/03/18 10:30 100 12/03/18 10:16 100 12/03/18 10:00 100 12/03/18 09:46 100 12/03/18 09:30 100 12/03/18 09:16 100 - Physical Examination General: Other (intubated on the vent) Cardiac: Positive: Reg Rate and Rhythm Abdomen: Positive: Soft - Labs and Meds CBC 12/04/18 Range/Units 05:23 WBC 23.7 H (4.5-11.0) K/mm3 RBC 3.04 L (3.65-5.03) M/mm3 Hgb 8.3 L (10.1-14.3) gm/dl Hct 25.2 L D (30.3-42.9) % Plt Count 167 (140-440) K/mm3 Comprehensive Metabolic Panel 12/04/18 Range/Units 05:23 Sodium 136 L (137-145) mmol/L Potassium 2.5 L* D (3.6-5.0) mmol/L Chloride 92.9 L (98-107) mmol/L Carbon Dioxide 36 H D (22-30) mmol/L BUN 13 (7-17) mg/dL Creatinine 0.8 (0.7-1.2) mg/dL Glucose 528 H* (65-100) mg/dL Calcium 6.0 L (8.4-10.2) mg/dL
--- NOTE | 2018-12-04 11:24 | Progress Note ---
Assessment and Plan Cultures: 12/02/2018 sputum culture: Usual respiratory nolan 12/02/2018 urine culture: No growth 12/02/2018 blood culture: No growth in 48 hours A/P: 53-year-old female with hypertension, hyperlipidemia, peripheral vascular disease presented to the emergency room on 12/02/2018 with complaints of chest pain, developed V.fib arrest, now with: 1) Shock, multifactorial: Cardiogenic versus septic. Patient with V. fib arrest. Developed bilateral aspiration pneumonia vs pneumonitis. Now alert, oriented 2) Bilateral airspace disease with concern for pneumonia with acute respiratory failure: CXR and CT chest showed bilateral airspace disease. Noted to have gastric content aspiration on admission. Empirically treat with IV cefepime and Flagyl. Follow up culture results. Remains afebrile and white count improving post arrest. Bandemia resolved. Likely able to convert to oral medications when stable and tube removed. Expect 8 days course of antibiotics. 3) Mixed acidosis: on admission. Lactate remains elevated. 4) V.fib arrest: cardiology following. EF 30-35%. Recs: Follow-up cultures. Empiric IV cefepime and Flagyl Thank you for involving us in the care of Ms. Tarango. We will continue to follow with you. Luis Earl MD [facility], [place], [facility]ated [facility] ([facility]) C: [phone] O: [phone] F: [phone] Subjective Date of service: 12/04/18 Principal diagnosis: Vfib cardiac arrest Interval history: Remains intubated but alert and communicative via drawing letters on daughter's hand. Main concern is having the ET tube removed. No other acute concerns at this time. Objective - Constitutional Vitals: Vital Signs Temp Pulse Resp BP Pulse Ox 99.5 F 63 25 H 87/44 97 12/04/18 04:00 12/04/18 10:45 12/04/18 10:45 12/04/18 10:45 12/04/18 10:45 Temperature -Last 24 Hours Temperature 99.5 F Temperature 99.6 F Temperature 98.8 F General appearance: Present: no acute distress - EENT Eyes: PERRL, EOM intact, no scleral icterus ENT: hearing intact, other (Intubated) - Respiratory Respiratory effort: normal Respiratory: bilateral: CTA - Cardiovascular Rhythm: regular Heart Sounds: Present: S1 & S2 Extremities: No edema, normal color - Gastrointestinal General gastrointestinal: Present: soft, non-tender, normal bowel sounds - Integumentary Integumentary: clear, warm, dry - Musculoskeletal Musculoskeletal: strength equal bilaterally - Neurologic Neurologic: no focal deficits, moves all extremities - Labs CBC & Chem 7: 12/04/18 05:23 12/04/18 05:23 Labs: Abnormal lab results 12/03/18 12/03/18 12/03/18 Range/Units 09:07 11:51 18:11 WBC (4.5-11.0) K/mm3 RBC (3.65-5.03) M/mm3 Hgb (10.1-14.3) gm/dl Hct (30.3-42.9) % MCH (28-32) pg RDW (13.2-15.2) % Seg Neuts % (Manual) (40.0-70.0) % Lymphocytes % (Manual) (13.4-35.0) % Seg Neutrophils # Man (1.8-7.7) K/mm3 Lymphocytes # (Manual) (1.2-5.4) K/mm3 POC ABG pH (7.35-7.45) POC ABG pCO2 (35-45) Sodium (137-145) mmol/L Potassium (3.6-5.0) mmol/L Chloride (98-107) mmol/L Carbon Dioxide (22-30) mmol/L Glucose (65-100) mg/dL POC Glucose 158 H 129 H (70-105) Lactic Acid (0.7-2.0) mmol/L Calcium (8.4-10.2) mg/dL Magnesium 1.20 L (1.7-2.3) mg/dL C-Reactive Protein (0.00-1.30) mg/dL 12/04/18 12/04/18 12/04/18 Range/Units 05:16 05:23 05:23 WBC 23.7 H (4.5-11.0) K/mm3 RBC 3.04 L (3.65-5.03) M/mm3 Hgb 8.3 L (10.1-14.3) gm/dl Hct 25.2 L D (30.3-42.9) % MCH 27 L (28-32) pg RDW 16.0 H (13.2-15.2) % Seg Neuts % (Manual) 97.0 H (40.0-70.0) % Lymphocytes % (Manual) 1.0 L (13.4-35.0) % Seg Neutrophils # Man 23.0 H (1.8-7.7) K/mm3 Lymphocytes # (Manual) 0.2 L (1.2-5.4) K/mm3 POC ABG pH 7.464 H (7.35-7.45) POC ABG pCO2 33.7 L (35-45) Sodium 136 L (137-145) mmol/L Potassium 2.5 L* D (3.6-5.0) mmol/L Chloride 92.9 L (98-107) mmol/L Carbon Dioxide 36 H D (22-30) mmol/L Glucose 528 H* (65-100) mg/dL POC Glucose (70-105) Lactic Acid (0.7-2.0) mmol/L Calcium 6.0 L (8.4-10.2) mg/dL Magnesium (1.7-2.3) mg/dL C-Reactive Protein (0.00-1.30) mg/dL 12/04/18 12/04/18 12/04/18 Range/Units 05:23 05:23 08:03 WBC (4.5-11.0) K/mm3 RBC (3.65-5.03) M/mm3 Hgb (10.1-14.3) gm/dl Hct (30.3-42.9) % MCH (28-32) pg RDW (13.2-15.2) % Seg Neuts % (Manual) (40.0-70.0) % Lymphocytes % (Manual) (13.4-35.0) % Seg Neutrophils # Man (1.8-7.7) K/mm3 Lymphocytes # (Manual) (1.2-5.4) K/mm3 POC ABG pH (7.35-7.45) POC ABG pCO2 (35-45) Sodium (137-145) mmol/L Potassium (3.6-5.0) mmol/L Chloride (98-107) mmol/L Carbon Dioxide (22-30) mmol/L Glucose (65-100) mg/dL POC Glucose (70-105) Lactic Acid 2.20 H* 2.90 H* (0.7-2.0) mmol/L Calcium (8.4-10.2) mg/dL Magnesium (1.7-2.3) mg/dL C-Reactive Protein 32.60 H (0.00-1.30) mg/dL 12/04/18 Range/Units 08:03 WBC (4.5-11.0) K/mm3 RBC (3.65-5.03) M/mm3 Hgb (10.1-14.3) gm/dl Hct (30.3-42.9) % MCH (28-32) pg RDW (13.2-15.2) % Seg Neuts % (Manual) (40.0-70.0) % Lymphocytes % (Manual) (13.4-35.0) % Seg Neutrophils # Man (1.8-7.7) K/mm3 Lymphocytes # (Manual) (1.2-5.4) K/mm3 POC ABG pH (7.35-7.45) POC ABG pCO2 (35-45) Sodium (137-145) mmol/L Potassium (3.6-5.0) mmol/L Chloride (98-107) mmol/L Carbon Dioxide (22-30) mmol/L Glucose (65-100) mg/dL POC Glucose (70-105) Lactic Acid (0.7-2.0) mmol/L Calcium (8.4-10.2) mg/dL Magnesium 1.40 L (1.7-2.3) mg/dL C-Reactive Protein (0.00-1.30) mg/dL - Imaging and cardiology Chest x-ray: image reviewed (bilateral airspace disease - improving)
[2018-12-04] MEDS: NACL 0.9% 1000 ML 1,000 ML IV SCH ×2 (12:12→23:45)
[2018-12-04] MEDS ORDERED: D50W (25GM) Syringe IV ONE (12:45)
[2018-12-04 13:19] LABS: BUN/Creatinine Ratio 18; Blood Urea Nitrogen 14 mg/dL (7-17); Calcium 6.7 mg/dL (8.4-10.2); Hemolysis Index 2
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
--- NOTE | 2018-12-04 13:43 | Progress Note ---
Subjective Date of service: 12/04/18 Principal diagnosis: Ac hypoxemic resp failure; ARDS; Septic Shock; DVT; Cardiac arrest Interval history: A/P: Septic shock. Patient with significant leukocytosis. Pressors to maintain MAP >65Continue IV antibiotics. Blood cultures negative 24 hours. ID consultation note reviewed Continue cefepime and metronidazole Acute hypoxemic respiratory failure. Patient with extensive airspace disease on CT scan., Luminary note reviewed and appreciated ? ARDS Continue mechanical ventilation per pulmonary. Bilateral pneumonia./ Likely aspiration pneumonia Continue IV antibiotics and follow serial chest x-ray. s/p cardiopulmonary/V. fib arrest. Patient with V. fib requiring cardioversion in the emergency room. MPI and echocardiogram September 2018 found to be normal. echo during this admission showed EF of 30-34% Cardiology note reviewed Acute on chronic systolic heart failure. Moderate global hypokinesis of the left ventricle with EF 30-35%. Septal wall hypertrophy observed. Right ventricular global systolic function also moderately reduced. Elevated troponin. Etiology likely secondary to V. fib arrest/electrical shock. New onset atrial fibrillation. Continue IV heparin. IV amiodarone discontinued due to underlying junctional rhythm. Aspirin daily. Hypertension. Patient actually hypotensive secondary to shock. Continue to monitor. Hyperlipidemia. Continue statin. Morbid obesity. Secondary to excess calories Acute DVT right common femoral vein Continue IV heparin Hypokalemia 40 mEq IV potassium administered Repeat potassium level is pending at this time Hypomagnesemia: IV magnesium supplemented Monitor electrolytes and magnesium level Type 2 diabetes on insulin Accu-Cheks reviewed Normocytic anemia No overt bleed Monitor H&H Subjective Patient is intubated, alert Unable to perform review of systems as the patient is intubated Objective - Constitutional Vitals: Vital Signs - 12hr 12/04/18 12/04/18 12/04/18 01:30 01:45 01:46 Temperature Pulse Rate 64 72 Pulse Rate [ 65 Bilateral Throughout] Pulse Rate [ From Monitor] Respiratory 25 H 26 H Rate Respiratory 28 H Rate [Bilateral Throughout] Blood Pressure 103/62 95/56 O2 Sat by Pulse 96 96 Oximetry 12/04/18 12/04/18 12/04/18 02:00 02:15 02:30 Temperature Pulse Rate 64 57 L 62 Pulse Rate [ Bilateral Throughout] Pulse Rate [ From Monitor] Respiratory 25 H 26 H 25 H Rate Respiratory Rate [Bilateral Throughout] Blood Pressure 100/60 117/64 107/62 O2 Sat by Pulse 97 98 100 Oximetry 12/04/18 12/04/18 12/04/18 02:45 03:01 03:15 Temperature Pulse Rate 65 70 64 Pulse Rate [ Bilateral Throughout] Pulse Rate [ From Monitor] Respiratory H 18 26 H Rate Respiratory Rate [Bilateral Throughout] Blood Pressure 107/62 114/62 97/53 O2 Sat by Pulse 99 98 97 Oximetry 12/04/18 12/04/18 12/04/18 03:30 03:45 04:00 Temperature 99.5 F Pulse Rate 60 57 L 65 Pulse Rate [ Bilateral Throughout] Pulse Rate [ From Monitor] Respiratory 25 H 21 25 H Rate Respiratory Rate [Bilateral Throughout] Blood Pressure 89/53 106/55 97/63 O2 Sat by Pulse 99 99 99 Oximetry 12/04/18 12/04/18 12/04/18 04:15 04:30 04:45 Temperature Pulse Rate 60 55 L 58 L Pulse Rate [ Bilateral Throughout] Pulse Rate [ From Monitor] Respiratory 25 H 25 H 25 H Rate Respiratory Rate [Bilateral Throughout] Blood Pressure 90/48 100/55 90/48 O2 Sat by Pulse 99 100 99 Oximetry 12/04/18 12/04/18 12/04/18 04:55 05:00 05:15 Temperature Pulse Rate 56 L 54 L 52 L Pulse Rate [ Bilateral Throughout] Pulse Rate [ From Monitor] Respiratory 25 H 25 H Rate Respiratory Rate [Bilateral Throughout] Blood Pressure 111/59 117/52 125/58 O2 Sat by Pulse 100 99 99 Oximetry 12/04/18 12/04/18 12/04/18 05:31 05:45 06:00 Temperature Pulse Rate 54 L 54 L 53 L Pulse Rate [ Bilateral Throughout] Pulse Rate [ From Monitor] Respiratory 24 25 H 25 H Rate Respiratory Rate [Bilateral Throughout] Blood Pressure 117/59 117/59 117/55 O2 Sat by Pulse 98 99 99 Oximetry 12/04/18 12/04/18 12/04/18 06:15 06:30 06:45 Temperature Pulse Rate 54 L 54 L 53 L Pulse Rate [ Bilateral Throughout] Pulse Rate [ From Monitor] Respiratory H 24 25 H Rate Respiratory Rate [Bilateral Throughout] Blood Pressure 117/59 122/59 122/59 O2 Sat by Pulse 98 98 100 Oximetry 12/04/18 12/04/18 12/04/18 07:01 07:15 07:30 Temperature Pulse Rate 52 L 55 L 56 L Pulse Rate [ Bilateral Throughout] Pulse Rate [ From Monitor] Respiratory 25 H 21 26 H Rate Respiratory Rate [Bilateral Throughout] Blood Pressure 131/49 121/50 122/58 O2 Sat by Pulse 99 99 99 Oximetry 12/04/18 12/04/18 12/04/18 07:45 08:00 08:06 Temperature Pulse Rate 59 L 67 66 Pulse Rate [ Bilateral Throughout] Pulse Rate [ 67 From Monitor] Respiratory 25 H 22 Rate Respiratory Rate [Bilateral Throughout] Blood Pressure 122/58 132/62 132/62 O2 Sat by Pulse 99 94 100 Oximetry 12/04/18 12/04/18 12/04/18 08:15 08:30 08:45 Temperature Pulse Rate 69 67 65 Pulse Rate [ Bilateral Throughout] Pulse Rate [ From Monitor] Respiratory 26 H 25 H 25 H Rate Respiratory Rate [Bilateral Throughout] Blood Pressure 113/68 118/49 118/49 O2 Sat by Pulse 98 97 99 Oximetry 12/04/18 12/04/18 12/04/18 08:55 09:00 09:15 Temperature Pulse Rate 70 69 Pulse Rate [ 66 Bilateral Throughout] Pulse Rate [ From Monitor] Respiratory 25 H 19 Rate Respiratory 26 H Rate [Bilateral Throughout] Blood Pressure 101/57 113/57 O2 Sat by Pulse 98 97 Oximetry 12/04/18 12/04/18 12/04/18 09:30 09:45 10:00 Temperature Pulse Rate 68 67 67 Pulse Rate [ Bilateral Throughout] Pulse Rate [ From Monitor] Respiratory 22 24 24 Rate Respiratory Rate [Bilateral Throughout] Blood Pressure 98/58 90/50 86/43 O2 Sat by Pulse 98 97 98 Oximetry 12/04/18 12/04/18 12/04/18 10:15 10:30 10:45 Temperature Pulse Rate 66 64 63 Pulse Rate [ Bilateral Throughout] Pulse Rate [ From Monitor] Respiratory 26 H 26 H 25 H Rate Respiratory Rate [Bilateral Throughout] Blood Pressure 81/45 99/55 87/44 O2 Sat by Pulse 98 98 97 Oximetry 12/04/18 12:12 Temperature Pulse Rate 57 L Pulse Rate [ Bilateral Throughout] Pulse Rate [ From Monitor] Respiratory Rate Respiratory Rate [Bilateral Throughout] Blood Pressure 115/51 O2 Sat by Pulse 98 Oximetry General appearance: Present: no acute distress, other (intubated, alert) - EENT Eyes: PERRL, EOM intact - Neck Neck: supple, no masses or JVD - Respiratory Respiratory: bilateral: CTA, diminished - Cardiovascular Rhythm: irregularly irregular Heart Sounds: Present: S1 & S2 Extremities: No edema - Gastrointestinal General gastrointestinal: Present: soft, non-tender Rectal Exam: deferred - Integumentary Integumentary: clear - Neurologic Neurologic: no focal deficits - Labs CBC & Chem 7: 12/04/18 05:23 12/04/18 Unknown Labs: Abnormal lab results 12/03/18 12/04/18 12/04/18 Range/Units 18:11 05:16 05:23 WBC 23.7 H (4.5-11.0) K/mm3 RBC 3.04 L (3.65-5.03) M/mm3 Hgb 8.3 L (10.1-14.3) gm/dl Hct 25.2 L D (30.3-42.9) % MCH 27 L (28-32) pg RDW 16.0 H (13.2-15.2) % Seg Neuts % (Manual) 97.0 H (40.0-70.0) % Lymphocytes % (Manual) 1.0 L (13.4-35.0) % Seg Neutrophils # Man 23.0 H (1.8-7.7) K/mm3 Lymphocytes # (Manual) 0.2 L (1.2-5.4) K/mm3 POC ABG pH 7.464 H (7.35-7.45) POC ABG pCO2 33.7 L (35-45) Sodium (137-145) mmol/L Potassium (3.6-5.0) mmol/L Chloride (98-107) mmol/L Carbon Dioxide (22-30) mmol/L Glucose (65-100) mg/dL POC Glucose 129 H (70-105) Lactic Acid (0.7-2.0) mmol/L Calcium (8.4-10.2) mg/dL Magnesium (1.7-2.3) mg/dL C-Reactive Protein (0.00-1.30) mg/dL 12/04/18 12/04/18 12/04/18 Range/Units 05:23 05:23 05:23 WBC (4.5-11.0) K/mm3 RBC (3.65-5.03) M/mm3 Hgb (10.1-14.3) gm/dl Hct (30.3-42.9) % MCH (28-32) pg RDW (13.2-15.2) % Seg Neuts % (Manual) (40.0-70.0) % Lymphocytes % (Manual) (13.4-35.0) % Seg Neutrophils # Man (1.8-7.7) K/mm3 Lymphocytes # (Manual) (1.2-5.4) K/mm3 POC ABG pH (7.35-7.45) POC ABG pCO2 (35-45) Sodium 136 L (137-145) mmol/L Potassium 2.5 L* D (3.6-5.0) mmol/L Chloride 92.9 L (98-107) mmol/L Carbon Dioxide 36 H D (22-30) mmol/L Glucose 528 H* (65-100) mg/dL POC Glucose (70-105) Lactic Acid 2.20 H* (0.7-2.0) mmol/L Calcium 6.0 L (8.4-10.2) mg/dL Magnesium (1.7-2.3) mg/dL C-Reactive Protein 32.60 H (0.00-1.30) mg/dL 12/04/18 12/04/18 12/04/18 Range/Units 08:03 08:03 12:20 WBC (4.5-11.0) K/mm3 RBC (3.65-5.03) M/mm3 Hgb (10.1-14.3) gm/dl Hct (30.3-42.9) % MCH (28-32) pg RDW (13.2-15.2) % Seg Neuts % (Manual) (40.0-70.0) % Lymphocytes % (Manual) (13.4-35.0) % Seg Neutrophils # Man (1.8-7.7) K/mm3 Lymphocytes # (Manual) (1.2-5.4) K/mm3 POC ABG pH (7.35-7.45) POC ABG pCO2 (35-45) Sodium (137-145) mmol/L Potassium (3.6-5.0) mmol/L Chloride (98-107) mmol/L Carbon Dioxide (22-30) mmol/L Glucose (65-100) mg/dL POC Glucose 52 L (70-105) Lactic Acid 2.90 H* (0.7-2.0) mmol/L Calcium (8.4-10.2) mg/dL Magnesium 1.40 L (1.7-2.3) mg/dL C-Reactive Protein (0.00-1.30) mg/dL 12/04/18 12/04/18 Range/Units 12:24 Unknown WBC (4.5-11.0) K/mm3 RBC (3.65-5.03) M/mm3 Hgb (10.1-14.3) gm/dl Hct (30.3-42.9) % MCH (28-32) pg RDW (13.2-15.2) % Seg Neuts % (Manual) (40.0-70.0) % Lymphocytes % (Manual) (13.4-35.0) % Seg Neutrophils # Man (1.8-7.7) K/mm3 Lymphocytes # (Manual) (1.2-5.4) K/mm3 POC ABG pH (7.35-7.45) POC ABG pCO2 (35-45) Sodium (137-145) mmol/L Potassium (3.6-5.0) mmol/L Chloride (98-107) mmol/L Carbon Dioxide (22-30) mmol/L Glucose 170 H (65-100) mg/dL POC Glucose 54 L (70-105) Lactic Acid (0.7-2.0) mmol/L Calcium 6.7 L (8.4-10.2) mg/dL Magnesium (1.7-2.3) mg/dL C-Reactive Protein (0.00-1.30) mg/dL
[2018-12-04] MEDS: POTASSIUM CHLORIDE FEEDTUBE SCH ×2 (14:12→18:38)
[2018-12-04] MEDS: HEPARIN/ 0.45% NACL-25,000 UNIT/500 ML 25,000 UNIT/500 ML BAG IV SCH (14:13)
[2018-12-04] MEDS: LEVOPHED DRIP 4 MG/NS 250 ML 4 MG/250 ML BAG IV SCH (14:20)
[2018-12-04] MEDS ORDERED: D50W (25GM) Syringe IV PRN (19:06)
[2018-12-04] MEDS: SODIUM CHLORIDE FLUSH SYRINGE 10 ML IV SCH (21:21)
[2018-12-05] MEDS: HumaLOG SUB-Q SCH ×4 (00:50→18:32)
[2018-12-05] MEDS: DUONEB *Not for PRN Use IH SCH ×4 (02:06→19:18)
--- NOTE | 2018-12-05 02:22 | XRay Report ---
CHEST 1 VIEW INDICATION / CLINICAL INFORMATION: follow up respiratory failure. COMPARISON: 12/04/2018 at 0206 hours FINDINGS: SUPPORT DEVICES: Endotracheal tube, nasogastric tube HEART / MEDIASTINUM: No significant abnormality. LUNGS / PLEURA: Bilateral airspace disease No pneumothorax. ADDITIONAL FINDINGS: No significant additional findings. IMPRESSION: Bilateral airspace disease has not changed significantly from yesterday. Signer Name: Eriberto Dela Cruz MD FACR Signed: 12/05/2018 2:17 AM Workstation Name: [email or web address]
[2018-12-05 05:34] LABS: Hematocrit 30.1 % (30.3-42.9); Hemoglobin 9.7 gm/dl (10.1-14.3); Mean Corpuscular HGB Conc 32 % (30-34); Mean Corpuscular Volume 83 fl (79-97); Platelet Count 201 K/mm3 (140-440); Red Blood Count 3.61 M/mm3 (3.65-5.03); Red Cell Distribution Width 16.5 % (13.2-15.2)
[2018-12-05] MEDS: FLAGYL 500 MG/100 ML 500 MG/100 ML BAG IV SCH ×3 (05:56→21:29)
[2018-12-05 06:01] LABS: BUN/Creatinine Ratio 20; Blood Urea Nitrogen 16 mg/dL (7-17); Calcium 7.8 mg/dL (8.4-10.2); Hemolysis Index 0
[2018-12-05] MEDS: MAXIPIME/NS 1 GM/100 ML 1 GM/100 ML BAG IV SCH ×3 (07:08→21:29)
[2018-12-05] MEDS: SODIUM CHLORIDE FLUSH SYRINGE 10 ML IV SCH ×3 (08:10→09:21)
[2018-12-05] MEDS: LEVAQUIN 500MG/100ML 500 MG/100 ML BAG IV SCH (08:52)
[2018-12-05] MEDS ORDERED: SODIUM BICARBONATE FEEDTUBE PRN (09:15)
[2018-12-05] MEDS ORDERED: SIMPLE SYRUP FEEDTUBE PRN ×2 (09:15)
[2018-12-05] MEDS ORDERED: PANCREAZE DR 10,500 UNIT FEEDTUBE PRN (09:15)
[2018-12-05] MEDS: PEPCID IV SCH ×2 (09:20→21:34)
[2018-12-05] MEDS: fentaNYL DRIP Premix 2,000 MCG/100 ML BAG IV SCH ×2 (09:20→19:40)
[2018-12-05] MEDS: HEPARIN/ 0.45% NACL-25,000 UNIT/500 ML 25,000 UNIT/500 ML BAG IV SCH (09:20)
[2018-12-05] MEDS: ECOTRIN PO SCH (09:20)
--- NOTE | 2018-12-05 11:28 | Progress Note ---
Assessment and Plan Assessment and plan: Septic shock -Probably secondary to bilateral pneumonia, ? aspiration -Continue cefepime and metronidazole -Off IV pressors, blood pressure improved -Blood and sputum cultures negative -ID following Acute hypoxemic respiratory failure -Status post intubation on mechanical ventilator -Plan is to wean off the Vent -Pulmonology following S/p V. fib arrest, requiring cardioversion in the emergency room. MPI 09/16/2018 - normal Echo 09/16/2018 - normal LVEF -Cardiology following Shock -septic versus cardiogenic -Off IV pressors. Blood pressure improved New onset systolic heart failure with EF of 30-35% -No acute exacerbation Elevated troponin. -Etiology likely secondary to V. fib arrest/electrical shock. -Cont IV heparin drip New onset atrial fibrillation. -IV amiodarone discontinued due to underlying junctional rhythm. -rate currently controlled -Cont IV heparin drip Acute DVT right common femoral vein Continue IV heparin Hypokalemia -Improved s/p repletion, will monitor level Hypomagnesemia -Improved s/p repletion, will monitor level Normocytic anemia -No overt bleed -Monitor H&H H/o hypertension. -Patient hypotensive secondary to shock on admission. -Home antihypertensives on hold. Continue to monitor. Hyperlipidemia. -Continue statin. Peripheral vascular disease -on cilostazol at home Marijuana use -Cessation recommended Medication non-compliance -Patient counseled Obesity with BMI of 33.4 -Lifestyle modification recommended Disposition: Continue treatment in the ICU Time spent: 37 minutes History Interval history: Patient is seen today. On mechanical ventilatory support but awake. She voiced no new complaints. Her nurse reported urinary retention after Rosas was discontinued. Hospitalist Physical - Constitutional Vitals: Temp Pulse Resp BP Pulse Ox 98.5 F 53 L 23 132/64 98 12/05/18 08:00 12/05/18 11:00 12/05/18 11:00 12/05/18 11:00 12/05/18 11:00 General appearance: Present: no acute distress, other (intubated but awake) - EENT Eyes: Present: PERRL, EOM intact ENT: hearing intact, clear oral mucosa - Neck Neck: Present: supple - Respiratory Respiratory effort: normal Respiratory: bilateral: CTA - Cardiovascular Rhythm: irregularly irregular Heart Sounds: Present: S1 & S2 - Extremities Extremities: No edema - Abdominal General gastrointestinal: soft, non-tender, normal bowel sounds - Integumentary Integumentary: Present: clear, warm, dry - Neurologic Neurologic: moves all extremities Results - Labs CBC & Chem 7: 12/05/18 05:22 12/05/18 05:22 Labs: Laboratory Last Values WBC 26.1 K/mm3 (4.5-11.0) H 12/05/18 05:22 RBC 3.61 M/mm3 (3.65-5.03) L 12/05/18 05:22 Hgb 9.7 gm/dl (10.1-14.3) L 12/05/18 05:22 Hct 30.1 % (30.3-42.9) L 12/05/18 05:22 MCV 83 fl (79-97) 12/05/18 05:22 MCH 27 pg (28-32) L 12/05/18 05:22 MCHC 32 % (30-34) 12/05/18 05:22 RDW 16.5 % (13.2-15.2) H 12/05/18 05:22 Plt Count 201 K/mm3 (140-440) 12/05/18 05:22 Lymph % (Auto) Investor Relations Coordinator 12/02/18 00:30 [place] % (Auto) 1.3 % (0.0-7.3) 12/03/18 04:07 Eos % (Auto) 0.0 % (0.0-4.3) 12/03/18 04:07 Baso % (Auto) Investor Relations Coordinator 12/02/18 00:30 Lymph # Investor Relations Coordinator 12/02/18 00:30 [place] # 0.3 K/mm3 (0.0-0.8) 12/03/18 04:07 Eos # 0.0 K/mm3 (0.0-0.4) 12/03/18 04:07 Baso # 0.0 K/mm3 (0.0-0.1) 12/03/18 04:07 Add Manual Diff Complete 12/04/18 05:23 Total Counted 100 12/04/18 05:23 Seg Neutrophils % Investor Relations Coordinator 12/02/18 00:30 Seg Neuts % (Manual) 97.0 % (40.0-70.0) H 12/04/18 05:23 0 % 12/04/18 05:23 1.0 % (13.4-35.0) L 12/04/18 05:23 Reactive Lymphs % (Man) 0 % 12/04/18 05:23 2.0 % (0.0-7.3) 12/04/18 05:23 0 % (0.0-4.3) 12/04/18 05:23 0 % (0.0-1.8) 12/04/18 05:23 0 % 12/04/18 05:23 0 % 12/04/18 05:23 0 % 12/04/18 05:23 0 % 12/04/18 05:23 Nucleated RBC % Not Reportable 12/04/18 05:23 Seg Neutrophils # 24.3 K/mm3 (1.8-7.7) H 12/03/18 04:07 Seg Neutrophils # Man 23.0 K/mm3 (1.8-7.7) H 12/04/18 05:23 Band Neutrophils # 0.0 K/mm3 12/04/18 05:23 0.2 K/mm3 (1.2-5.4) L 12/04/18 05:23 Abs React Lymphs (Man) 0.0 K/mm3 12/04/18 05:23 0.5 K/mm3 (0.0-0.8) 12/04/18 05:23 0.0 K/mm3 (0.0-0.4) 12/04/18 05:23 0.0 K/mm3 (0.0-0.1) 12/04/18 05:23 0.0 K/mm3 12/04/18 05:23 0.0 K/mm3 12/04/18 05:23 0.0 K/mm3 12/04/18 05:23 Blast Cells # 0.0 K/mm3 12/04/18 05:23 WBC Morphology Not Reportable 12/04/18 05:23 Hypersegmented Neuts Not Reportable 12/04/18 05:23 Hyposegmented Neuts Not Reportable 12/04/18 05:23 Hypogranular Neuts Not Reportable 12/04/18 05:23 Not Reportable 12/04/18 05:23 Not Reportable 12/04/18 05:23 Not Reportable 12/04/18 05:23 Not Reportable 12/04/18 05:23 Not Reportable 12/04/18 05:23 Not Reportable 12/04/18 05:23 Consistent w auto 12/04/18 05:23 Not Reportable 12/04/18 05:23 Plt Clumps, EDTA Not Reportable 12/04/18 05:23 Not Reportable 12/04/18 05:23 Not Reportable 12/04/18 05:23 Not Reportable 12/04/18 05:23 Plt Morphology Comment Not Reportable 12/04/18 05:23 RBC Morphology Not Reportable 12/04/18 05:23 Dimorphic RBCs Not Reportable 12/04/18 05:23 Not Reportable 12/04/18 05:23 Not Reportable 12/04/18 05:23 Not Reportable 12/04/18 05:23 Few 12/04/18 05:23 Not Reportable 12/04/18 05:23 Not Reportable 12/04/18 05:23 Not Reportable 12/04/18 05:23 Not Reportable 12/04/18 05:23 Not Reportable 12/04/18 05:23 Not Reportable 12/04/18 05:23 Not Reportable 12/04/18 05:23 Not Reportable 12/04/18 05:23 Not Reportable 12/04/18 05:23 Not Reportable 12/04/18 05:23 Not Reportable 12/04/18 05:23 Not Reportable 12/04/18 05:23 Not Reportable 12/04/18 05:23 Not Reportable 12/04/18 05:23 Not Reportable 12/04/18 05:23 Acanthocytes (Spur) Not Reportable 12/04/18 05:23 Rouleaux Not Reportable 12/04/18 05:23 Not Reportable 12/04/18 05:23 Not Reportable 12/04/18 05:23 Not Reportable 12/04/18 05:23 Not Reportable 12/04/18 05:23 Hem Pathologist Commnt No 12/04/18 05:23 PT 14.4 Sec. (12.2-14.9) 12/02/18 10:50 INR 1.15 (0.87-1.13) H 12/02/18 10:50 APTT 26.5 Sec. (24.2-36.6) 12/02/18 10:50 1085.94 ng/mlDDU (0-234) H 12/02/18 00:30 Heparin Anti-Xa Level 0.36 U.I./ml (0.3-0.7) 12/04/18 20:28 POC ABG pH 7.315 (7.35-7.45) L 12/05/18 05:49 POC ABG pCO2 42.6 (35-45) 12/05/18 05:49 POC ABG pO2 84 (80-105) 12/05/18 05:49 POC ABG HCO3 21.7 (22-26 mml/L) 12/05/18 05:49 POC ABG Total CO2 23 (23-27mmol/L) 12/05/18 05:49 POC ABG O2 Sat 95 12/05/18 05:49 POC ABG Base Excess -4 ((-2) - (+3)mmol/L) 12/05/18 05:49 40 % 12/05/18 05:49 Sodium 145 mmol/L (137-145) D 12/05/18 05:22 Potassium 4.0 mmol/L (3.6-5.0) D 12/05/18 05:22 Chloride 113.9 mmol/L (98-107) H 12/05/18 05:22 Carbon Dioxide 24 mmol/L (22-30) 12/05/18 05:22 11 mmol/L 12/05/18 05:22 BUN 16 mg/dL (7-17) 12/05/18 05:22 0.8 mg/dL (0.7-1.2) 12/05/18 05:22 Estimated GFR > 60 ml/min 12/05/18 05:22 20 % 12/05/18 05:22 Glucose 84 mg/dL (65-100) 12/05/18 05:22 POC Glucose 91 (70-105) 12/05/18 05:19 5.6 % (4-6) 12/04/18 08:03 Lactic Acid 1.60 mmol/L (0.7-2.0) 12/05/18 05:22 Calcium 7.8 mg/dL (8.4-10.2) L D 12/05/18 05:22 Magnesium 2.50 mg/dL (1.7-2.3) H 12/05/18 05:22 1322 units/L (30-135) H 12/02/18 10:50 CK-MB (CK-2) 216.7 ng/mL (0.0-4.0) H 12/02/18 10:50 CK-MB (CK-2) Rel Index 16.3 (0-4) H 12/02/18 10:50 0.871 ng/mL (0.00-0.029) H* D 12/02/18 10:50 32.60 mg/dL (0.00-1.30) H 12/04/18 05:23 Triglycerides 358 mg/dL (2-149) H 12/02/18 03:14 Cholesterol 111 mg/dL (50-199) 12/02/18 03:14 42 mg/dL (50-130) L 12/02/18 03:14 29 mg/dL (40-59) L 12/02/18 03:14 3.82 % 12/02/18 03:14 Colorless (Yellow) 12/02/18 02:58 Clear (Clear) 12/02/18 02:58 7.0 (5.0-7.0) 12/02/18 02:58 Ur Specific [place] 1.008 (1.003-1.030) 12/02/18 02:58 100 mg/dl mg/dL (Negative) 12/02/18 02:58 >=500 mg/dL (Negative) 12/02/18 02:58 Neg mg/dL (Negative) 12/02/18 02:58 Sm (Negative) 12/02/18 02:58 Neg (Negative) 12/02/18 02:58 Neg (Negative) 12/02/18 02:58 < 2.0 mg/dL (<2.0) 12/02/18 02:58 Ur Leukocyte Esterase Neg (Negative) 12/02/18 02:58 12.0 /HPF (0.0-6.0) H 12/02/18 02:58 7.0 /HPF (0.0-6.0) 12/02/18 02:58 U Epithel Cells (Auto) < 1.0 /HPF (0-13.0) 12/02/18 02:58 Few /HPF 12/02/18 02:58 Presumptive negative 12/02/18 02:58 Presumptive negative 12/02/18 02:58 Ur Barbiturates Screen Presumptive negative 12/02/18 02:58 Ur Phencyclidine Scrn Presumptive negative 12/02/18 02:58 Ur Amphetamines Screen Presumptive negative 12/02/18 02:58 U Benzodiazepines Scrn Presumptive negative 12/02/18 02:58 Presumptive negative 12/02/18 02:58 U Marijuana (THC) Screen Presumptive positive 12/02/18 02:58 Disclamer 12/02/18 02:58 Active Medications - Current Medications Current Medications: Generic Name Dose Route Start Last Admin Trade Name Freq PRN Reason Stop Dose Admin Acetaminophen 650 mg 12/02/18 05:03 Tylenol PO Q4H PRN Pain MILD(1-3)/Fever >100.5/TORRES Albuterol/Ipratropium 1 ampul 12/02/18 08:00 12/05/18 08:11 Duoneb *Not For Prn Use* IH 1 ampul Q6HRT DC Administration Lipase/Protease/Amylase 1 each 12/05/18 09:15 [place] 10,500 Unit FEEDTUBE PRN PRN For Clogged Feeding Tube Aspirin 325 mg 12/02/18 12:00 12/05/18 09:20 Ecotrin PO 325 mg QDAY DC Administration Dextrose 25 ml 12/04/18 19:06 D50w (25gm) Syringe IV PRN PRN Hypoglycemia Famotidine 20 mg 12/02/18 10:00 12/05/18 09:20 Pepcid IV 20 mg BID DC Administration Fentanyl 50 mcg 12/02/18 04:00 Sublimaze IV Q10MIN PRN ANALGESIA Hydrophilic Ointment 1 applic 12/02/18 00:45 Vaseline Lip Therapy TP Q2HR PRN Dry Lips Propofol 1,000 mg in 100 mls @ 2.82 mls/hr 12/02/18 01:00 12/02/18 08:30 Diprivan 10 Mg/Ml IV 0 mcg/kg/min TITR DC 0 mls/hr Titration Protocol 5 MCG/KG/MIN Fentanyl Citrate 2,000 mcg in 100 mls @ 4.7 mls/hr 12/02/18 04:00 12/05/18 09:20 Fentanyl Drip Premix IV 2 mcg/kg/hr TITR DC 9.4 mls/hr Administration Protocol 1 MCG/KG/HR Norepinephrine 4 mg in 250 mls @ 7.5 mls/hr 12/02/18 04:15 12/04/18 18:45 Levophed Drip 4 Mg/Ns 250 Ml IV 0 mcg/min TITR DC 0 mls/hr Titration Protocol 2 MCG/MIN Sodium Chloride 1,000 mls @ 100 mls/hr 12/02/18 06:00 12/05/18 07:08 Nacl 0.9% 1000 Ml IV 0 mls/hr DIRECT DC Infusion Vasopressin 20 unit/ Sodium 101 mls @ 9.09 mls/hr 12/02/18 08:00 12/03/18 16:12 Chloride IV 0 units/min TITR DC 0 mls/hr Titration Protocol 0.03 UNITS/MIN Heparin Sodium/Sodium Chloride 25,000 unit in 500 mls @ 20 mls/hr 12/02/18 11:00 12/05/18 09:20 Heparin/ 0.45% Nacl-25,000 Unit/500 Ml IV 1,450 units/hr TITRATE DC 29 mls/hr Administration Protocol 1,000 UNITS/HR Dopamine HCl/Dextrose 800 mg in 250 mls @ 8.813 mls/hr 12/02/18 19:00 12/04/18 07:15 Intropin Drip 800 Mg/D5w 250 Ml IV 0 mcg/kg/min TITR DC 0 mls/hr Titration Protocol 5 MCG/KG/MIN Cefepime HCl 1 gm in 100 mls @ 200 mls/hr 12/03/18 16:00 12/05/18 07:08 Maxipime/Ns 1 Gm/100 Ml IV 200 mls/hr Q8HR [facility] Administration Protocol Metronidazole 500 mg in 100 mls @ 100 mls/hr 12/03/18 16:00 12/05/18 05:56 Flagyl 500 Mg/100 Ml IV 100 mls/hr Q8HR [facility] Administration Protocol Insulin Human Lispro 0 unit 12/04/18 07:00 12/05/18 05:54 Humalog SUB-Q Not Given Q6HR [facility] Protocol Multi-Ingred Cream/Lotion/Oil/Oint 1 applic 12/02/18 00:45 Artificial Tears Ophth Oint OU Q4HR PRN Dry Eye(s) Ondansetron HCl 4 mg 12/02/18 05:03 Zofran IV Q8H PRN Nausea And Vomiting Simple Syrup 15 ml 12/05/18 09:15 Simple Syrup FEEDTUBE PRN PRN Hypoglycemia Simple Syrup 30 ml 12/05/18 09:15 Simple Syrup FEEDTUBE PRN PRN Hypoglycemia Sodium Bicarbonate 325 mg 12/05/18 09:15 Sodium Bicarbonate FEEDTUBE PRN PRN For Clogged Feeding Tube Sodium Chloride 10 ml 12/02/18 10:00 12/05/18 09:21 Sodium Chloride Flush Syringe 10 Ml IV 10 ml BID DC Administration Sodium Chloride 10 ml 12/02/18 05:03 Sodium Chloride Flush Syringe 10 Ml IV PRN PRN LINE FLUSH Nutrition/Malnutrition Assess - Dietary Evaluation Nutrition/Malnutrition Findings: Nutrition Notes Start: 12/02/18 08:27 Freq: Status: Active Protocol: Document 12/05/18 09:13 MEKHI (Rec: 12/05/18 09:15 [id number] [email or web address]) Nutrition Notes Need for Assessment generated from: MD Order Initial or Follow up Brief Note Current Diet NPO Labs/Tests Mg 2.5 Subjective/Other Information RD consulted for TF. Pt remains on vent support. Nutrition Intervention Nutrition Support: Vital HP at 55ml/hr with 50ml water flush q4h. Kcal 1,320 Protein (gm) 116 Carbohydrates (gm) 148 Fat (gm) 31 Fluid (mL) 1,104 Fiber (gm) 0 Goal #1 TF tolerance Goal #2 TF to meet 65-70% energy and 90-100% pro needs Follow-Up By: 12/07/18 Additional Comments F/U: new TF, vent status
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
--- NOTE | 2018-12-05 13:50 | Progress Note ---
Assessment and Plan Acute respiratory failure Extensive airspace disease on CT - improving Leukocytosis Cardiopulmonary arrest Vfib requiring cardioversion in the ER MPI 09/16/2018 - normal Echo 09/16/2018 - normal LVEF Abnormal troponin likely type II IN post Vfib and electrical shock Echo this admission is showing significant deterioration in LVEF from 09/2018 Atrial fibrillation, new onset - resolved Right common femoral vein DVT - new diagnosis this admission Systemic Hypertension Peripheral vascular disease on cilostazol Hyperlipidemia Former smoker (quit in 2011) Morbid obesity Marijuana use Non-compliance with meds Plan: Coronary angio when extubated and stable. Subjective Date of service: 12/05/18 Principal diagnosis: Ac hypoxemic resp failure; ARDS; Septic Shock; DVT; Cardiac arrest Interval history: Patient is alert but remains on the vent. Communicates with pen and paper. Objective Vital Signs Temp Pulse Pulse Pulse Resp Resp BP 12/05/18 13:30 58 L 21 151/69 12/05/18 13:00 70 14 117/84 12/05/18 12:30 62 15 115/76 12/05/18 12:05 76 132/77 12/05/18 12:00 68 14 132/64 12/05/18 11:30 53 L 19 125/60 12/05/18 11:00 53 L 23 132/64 12/05/18 10:30 58 L 15 128/63 12/05/18 10:00 59 L 19 129/75 12/05/18 09:30 62 12 129/75 12/05/18 09:03 57 L 27 H 12/05/18 09:00 61 20 157/76 12/05/18 08:30 60 27 H 144/63 12/05/18 08:04 66 164/84 12/05/18 08:00 98.5 F 70 70 17 164/84 12/05/18 07:30 58 L 26 H 153/62 12/05/18 07:00 60 19 157/66 12/05/18 06:30 63 19 150/73 12/05/18 06:00 59 L 13 144/78 12/05/18 05:41 55 L 145/71 12/05/18 05:30 56 L 28 H 145/71 12/05/18 05:00 54 L 22 135/64 12/05/18 04:30 59 L 28 H 153/77 12/05/18 04:00 71 15 142/65 12/05/18 03:30 55 L 26 H 142/65 12/05/18 03:00 59 L 22 148/75 12/05/18 02:39 97.6 F 12/05/18 02:30 56 L 23 140/68 12/05/18 02:20 57 L 30 H 12/05/18 02:16 57 L 17 150/63 12/05/18 02:00 65 12 140/73 12/05/18 01:45 54 L 19 132/65 12/05/18 01:30 58 L 26 H 153/69 12/05/18 01:15 57 L 24 153/69 12/05/18 01:00 54 L 22 142/70 12/05/18 00:45 59 L 22 138/58 12/05/18 00:44 59 L 159/54 12/05/18 00:30 61 9 L 139/75 12/05/18 00:15 54 L 10 L 138/58 12/05/18 00:00 57 L 13 148/68 12/04/18 23:45 56 L 18 139/63 12/04/18 23:30 64 12 143/69 12/04/18 23:21 99.3 F 12/04/18 23:15 53 L 22 136/73 12/04/18 23:00 55 L 25 H 141/67 12/04/18 22:45 54 L 25 H 133/61 12/04/18 22:31 57 L 20 146/75 12/04/18 22:15 53 L 20 129/60 12/04/18 22:00 57 L 19 136/61 12/04/18 21:45 56 L 20 137/66 12/04/18 21:31 55 L 27 H 128/67 12/04/18 21:15 56 L 22 128/67 12/04/18 21:00 60 25 H 135/63 12/04/18 20:45 57 L 27 H 128/67 12/04/18 20:31 56 L 24 129/49 12/04/18 20:29 59 L 26 H 153/70 12/04/18 20:28 60 12/04/18 20:15 56 L 21 153/70 12/04/18 20:01 57 L 28 H 132/63 12/04/18 19:49 64 26 H 144/72 12/04/18 19:45 59 L 24 144/72 12/04/18 19:44 97.6 F 12/04/18 19:42 55 L 23 12/04/18 19:40 61 146/62 12/04/18 19:30 54 L 25 H 146/62 12/04/18 19:15 58 L 23 135/59 12/04/18 19:01 52 L 24 135/59 12/04/18 18:45 55 L 24 152/58 12/04/18 18:31 55 L 23 152/58 12/04/18 18:15 58 L 22 141/81 12/04/18 18:01 61 14 135/63 12/04/18 17:45 56 L 22 124/76 12/04/18 17:30 54 L 20 124/76 12/04/18 17:15 53 L 21 143/72 12/04/18 17:01 52 L 25 H 143/72 12/04/18 16:45 59 L 23 140/72 12/04/18 16:31 61 15 127/57 12/04/18 16:24 58 L 115/58 12/04/18 16:15 54 L 24 127/55 12/04/18 16:01 53 L 26 H 127/55 12/04/18 16:00 98.3 F 53 L 26 H 12/04/18 15:45 48 L 22 137/65 12/04/18 15:30 59 L 26 H 137/65 12/04/18 15:15 55 L 16 129/45 12/04/18 15:00 57 L 22 129/45 12/04/18 14:45 55 L 25 H 131/56 12/04/18 14:31 52 L 58 L 27 H 17 131/56 12/04/18 14:15 55 L 20 108/53 12/04/18 14:01 56 L 16 108/53 Pulse Ox 12/05/18 13:30 12/05/18 13:00 94 12/05/18 12:30 94 12/05/18 12:05 75 L 12/05/18 12:00 94 12/05/18 11:30 99 12/05/18 11:00 98 12/05/18 10:30 98 12/05/18 10:00 99 12/05/18 09:30 98 12/05/18 09:03 12/05/18 09:00 99 12/05/18 08:30 96 12/05/18 08:04 100 12/05/18 08:00 96 12/05/18 07:30 92 12/05/18 07:00 95 12/05/18 06:30 99 12/05/18 06:00 98 12/05/18 05:41 98 12/05/18 05:30 96 12/05/18 05:00 97 12/05/18 04:30 95 12/05/18 04:00 86 12/05/18 03:30 95 12/05/18 03:00 99 12/05/18 02:39 12/05/18 02:30 98 12/05/18 02:20 12/05/18 02:16 95 12/05/18 02:00 99 12/05/18 01:45 96 12/05/18 01:30 97 12/05/18 01:15 97 12/05/18 01:00 96 12/05/18 00:45 97 12/05/18 00:44 97 12/05/18 00:30 98 12/05/18 00:15 97 12/05/18 00:00 98 12/04/18 23:45 95 12/04/18 23:30 95 12/04/18 23:21 12/04/18 23:15 98 12/04/18 23:00 97 12/04/18 22:45 97 12/04/18 22:31 96 12/04/18 22:15 97 12/04/18 22:00 97 12/04/18 21:45 97 12/04/18 21:31 98 12/04/18 21:15 98 12/04/18 21:00 96 12/04/18 20:45 98 12/04/18 20:31 98 12/04/18 20:29 98 12/04/18 20:28 12/04/18 20:15 96 12/04/18 20:01 96 12/04/18 19:49 95 12/04/18 19:45 95 12/04/18 19:44 12/04/18 19:42 12/04/18 19:40 97 12/04/18 19:30 94 12/04/18 19:15 97 12/04/18 19:01 97 12/04/18 18:45 97 12/04/18 18:31 98 12/04/18 18:15 100 12/04/18 18:01 97 12/04/18 17:45 97 12/04/18 17:30 98 12/04/18 17:15 98 12/04/18 17:01 97 12/04/18 16:45 98 12/04/18 16:31 99 12/04/18 16:24 100 12/04/18 16:15 98 12/04/18 16:01 97 12/04/18 16:00 97 12/04/18 15:45 99 12/04/18 15:30 97 12/04/18 15:15 99 12/04/18 15:00 100 12/04/18 14:45 99 12/04/18 14:31 96 12/04/18 14:15 97 12/04/18 14:01 99 - Physical Examination General: Other (intubated on the vent) HEENT: Positive: PERRL Cardiac: Positive: Reg Rate and Rhythm - Labs and Meds CBC 12/05/18 Range/Units 05:22 WBC 26.1 H (4.5-11.0) K/mm3 RBC 3.61 L (3.65-5.03) M/mm3 Hgb 9.7 L (10.1-14.3) gm/dl Hct 30.1 L (30.3-42.9) % Plt Count 201 (140-440) K/mm3 Comprehensive Metabolic Panel 12/04/18 12/05/18 Range/Units 12:53 05:22 Sodium 138 145 D (137-145) mmol/L Potassium 3.2 L D 4.0 D (3.6-5.0) mmol/L Chloride 106.2 113.9 H (98-107) mmol/L Carbon Dioxide 23 D 24 (22-30) mmol/L BUN 14 16 (7-17) mg/dL Creatinine 0.8 0.8 (0.7-1.2) mg/dL Glucose 170 H 84 (65-100) mg/dL Calcium 6.7 L 7.8 L D (8.4-10.2) mg/dL - Allied health notes Allied health notes reviewed: nursing
--- NOTE | 2018-12-05 13:55 | Progress Note ---
Assessment and Plan Cultures: 12/02/2018 sputum culture: Usual respiratory nolan 12/02/2018 urine culture: No growth 12/02/2018 blood culture: No growth in 72 hours A/P: 53-year-old female with hypertension, hyperlipidemia, peripheral vascular disease presented to the emergency room on 12/02/2018 with complaints of chest pain, developed V.fib arrest, now with: 1) Shock, multifactorial: Cardiogenic versus septic. Patient with V. fib arrest. Developed bilateral aspiration pneumonia vs pneumonitis. Now alert, oriented 2) Bilateral airspace disease with concern for pneumonia with acute respiratory failure: CXR and CT chest showed bilateral airspace disease. Noted to have gastric content aspiration on admission. Empirically treat with IV cefepime and Flagyl. Follow up culture results. Remains afebrile and white count improving post arrest. Bandemia resolved. Likely able to convert to oral medications when stable and tube removed. Expect 8 days course of antibiotics. 3) Mixed acidosis: on admission. Lactate remains elevated. 4) V.fib arrest: cardiology following. EF 30-35%. Recs: Follow-up cultures. Empiric IV cefepime and Flagyl Thank you for involving us in the care of Ms. Tarango. We will continue to follow with you. Luis Earl MD [facility] C: [phone] O: [phone] F: [phone] Subjective Date of service: 12/05/18 Principal diagnosis: Ac hypoxemic resp failure; ARDS; Septic Shock; DVT; Cardiac arrest Interval history: Patient remains intubated but alert and oriented. Wants tube removed, no new concerns. White count stable today, no new fevers. Objective - Exam Narrative Exam: Constitutional: awake, no distress, following commands Head, Ears, Nose: Normocephalic, atraumatic. External ears, nose normal Eyes: Conjunctivae/corneas clear. No icterus. No ptosis. Neck: Supple, no meningeal signs Oral: Intubated Cardiovascular: S1, S2 normal. Normal rhythm Respiratory: Good air entry, clear to auscultation bilaterally GI: Soft, non-tender; bowel sounds normal. No peritoneal signs Musculoskeletal: No pedal edema, Skin: No rash or abscess Hem/Lymphatic: No palpable cervical or supraclavicular nodes. No lymphangitis Psych: no agitation Neurological: Moves all extremities, no focal defects - Constitutional Vitals: Vital Signs Temp Pulse Resp BP Pulse Ox 98.5 F 58 L 21 151/69 94 12/05/18 08:00 12/05/18 13:30 12/05/18 13:30 12/05/18 13:30 12/05/18 13:00 Temperature -Last 24 Hours Temperature 98.5 F Temperature 97.6 F Temperature 99.3 F Temperature 97.6 F Temperature 98.3 F - Labs CBC & Chem 7: 12/05/18 05:22 12/05/18 05:22 Labs: Abnormal lab results 12/04/18 12/04/18 12/05/18 Range/Units 12:53 13:06 05:22 WBC 26.1 H (4.5-11.0) K/mm3 RBC 3.61 L (3.65-5.03) M/mm3 Hgb 9.7 L (10.1-14.3) gm/dl Hct 30.1 L (30.3-42.9) % MCH 27 L (28-32) pg RDW 16.5 H (13.2-15.2) % POC ABG pH (7.35-7.45) Potassium 3.2 L D (3.6-5.0) mmol/L Chloride (98-107) mmol/L Glucose 170 H (65-100) mg/dL POC Glucose 171 H (70-105) Calcium 6.7 L (8.4-10.2) mg/dL Magnesium (1.7-2.3) mg/dL 12/05/18 12/05/18 Range/Units 05:22 05:49 WBC (4.5-11.0) K/mm3 RBC (3.65-5.03) M/mm3 Hgb (10.1-14.3) gm/dl Hct (30.3-42.9) % MCH (28-32) pg RDW (13.2-15.2) % POC ABG pH 7.315 L (7.35-7.45) Potassium (3.6-5.0) mmol/L Chloride 113.9 H (98-107) mmol/L Glucose (65-100) mg/dL POC Glucose (70-105) Calcium 7.8 L D (8.4-10.2) mg/dL Magnesium 2.50 H (1.7-2.3) mg/dL - Imaging and cardiology Chest x-ray: image reviewed (B/L airspace disease no signficant change from yesterday.)
[2018-12-06] MEDS: HEPARIN/ 0.45% NACL-25,000 UNIT/500 ML 25,000 UNIT/500 ML BAG IV SCH ×2 (01:48→20:45)
--- NOTE | 2018-12-06 02:43 | XRay Report ---
CHEST 1 VIEW INDICATION / CLINICAL INFORMATION: follow up respiratory failure. COMPARISON: 12/05/2018 FINDINGS: SUPPORT DEVICES: Endotracheal tube, nasogastric tube, right-sided PICC line HEART / MEDIASTINUM: No significant abnormality. LUNGS / PLEURA: Bilateral airspace disease No pneumothorax. ADDITIONAL FINDINGS: No significant additional findings. IMPRESSION: Bilateral airspace disease has worsened since 12/05/2018. No other interval change. Signer Name: Eriberto Dela Cruz MD FACR Signed: 12/06/2018 2:38 AM Workstation Name: [employer]
[2018-12-06] MEDS: fentaNYL DRIP Premix 2,000 MCG/100 ML BAG IV SCH ×3 (02:54→20:46)
[2018-12-06] MEDS: DUONEB *Not for PRN Use IH SCH ×4 (03:15→19:28)
[2018-12-06 05:39] LABS: Hemoglobin 9.9 gm/dl (10.1-14.3); Mean Corpuscular HGB Conc 33 % (30-34); Mean Corpuscular Volume 83 fl (79-97); Platelet Count 208 K/mm3 (140-440); Red Blood Count 3.62 M/mm3 (3.65-5.03); Red Cell Distribution Width 16.4 % (13.2-15.2)
[2018-12-06] MEDS ORDERED: HEPARIN 10,000 UNITS/10 ML IV NR (06:04)
[2018-12-06 06:20] LABS: Alanine Aminotransferase 54 units/L (7-56); Albumin 2.3 g/dL (3.9-5); BUN/Creatinine Ratio 24; Blood Urea Nitrogen 17 mg/dL (7-17); Hemolysis Index 0
[2018-12-06 06:33] LABS: Band Neutrophils # (Manual) 0.2 K/mm3; Basophils % (Manual) 0 % (0.0-1.8); Eosinophils % (Manual) 0 % (0.0-4.3); Total Cells Counted 100
[2018-12-06 06:34] LABS: Platelet Estimate Consistent w Auto; RBC Morphology Normal
[2018-12-06] MEDS: HumaLOG SUB-Q SCH ×3 (06:36→18:30)
[2018-12-06] MEDS: PEPCID IV SCH (09:00)
[2018-12-06] MEDS ORDERED: APRESOLINE IV ONE ×2 (09:00→10:00)
[2018-12-06] MEDS: ECOTRIN PO SCH (09:18)
[2018-12-06] MEDS: SODIUM CHLORIDE FLUSH SYRINGE 10 ML IV SCH (09:19)
[2018-12-06] MEDS: PEPCID PO SCH ×2 (09:20→22:10)
[2018-12-06] MEDS ORDERED: ATIVAN IV PRN (09:26)
[2018-12-06] MEDS ORDERED: APRESOLINE IV PRN (09:44)
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
[2018-12-06] MEDS ORDERED: TRIAMTER PO SCH (10:00)
[2018-12-06] MEDS ORDERED: NORVASC PO SCH (10:00)
[2018-12-06] MEDS ORDERED: LASIX IV ONE (10:00)
[2018-12-06] MEDS ORDERED: HCTZ PO SCH (10:00)
[2018-12-06] MEDS ORDERED: MAXZIDE-25 PO SCH (10:00)
--- NOTE | 2018-12-06 11:23 | Progress Note ---
<VIV FLORES - Last Filed: 12/06/18 11:21> Assessment and Plan Acute respiratory failure Extensive airspace disease on CT - improving Leukocytosis Cardiopulmonary arrest Vfib requiring cardioversion in the ER MPI 09/16/2018 - normal Echo 09/16/2018 - normal LVEF Echo 12/02/2018- LVEF 30-35% Abnormal troponin likely type II [place] post Vfib and electrical shock Echo this admission is showing significant deterioration in LVEF from 09/2018 Atrial fibrillation, new onset - resolved Right common femoral vein DVT - new diagnosis this admission on IV heparin Systemic Hypertension Peripheral vascular disease on cilostazol Hyperlipidemia Former smoker (quit in 2011) Morbid obesity Marijuana use Non-compliance with meds Plan: Coronary angio when extubated and stable of the vent. Subjective Date of service: 12/06/18 Principal diagnosis: Ac hypoxemic resp failure; ARDS; Septic Shock; DVT; Cardiac arrest Interval history: Patient is alert but remains on the vent. Objective Vital Signs Temp Pulse Pulse Pulse Resp Resp BP 12/06/18 09:15 102 H 29 H 12/06/18 09:00 97 H 166/80 12/06/18 08:25 96 H 182/93 12/06/18 08:23 85 181/93 12/06/18 08:00 98.6 F 91 H 91 H 18 170/72 12/06/18 07:30 77 13 182/99 12/06/18 07:00 66 24 170/72 12/06/18 06:30 74 24 12/06/18 06:00 75 19 12/06/18 05:30 71 16 12/06/18 05:00 77 15 12/06/18 04:30 81 14 51/32 12/06/18 04:22 90 12/06/18 04:00 75 75 21 51/32 12/06/18 03:41 98.7 F 12/06/18 03:30 61 16 92/57 12/06/18 03:25 87 32 H 12/06/18 03:00 76 15 99/39 12/06/18 02:30 79 7 L 91/58 12/06/18 02:00 77 15 58/34 12/06/18 01:30 61 19 99/73 12/06/18 01:00 70 23 150/73 12/06/18 00:30 74 26 H 151/74 12/06/18 00:00 98.9 F 62 61 19 162/75 12/05/18 23:42 66 162/75 12/05/18 23:30 60 21 162/75 12/05/18 23:00 63 24 168/71 12/05/18 22:30 61 21 152/67 12/05/18 22:28 59 L 21 153/73 12/05/18 22:00 62 21 147/69 12/05/18 21:30 62 21 153/73 12/05/18 21:00 78 28 H 172/83 12/05/18 20:30 61 24 169/76 12/05/18 20:00 98.9 F 71 71 16 172/80 12/05/18 19:50 64 24 12/05/18 19:30 77 14 180/85 12/05/18 19:15 81 184/84 12/05/18 19:00 78 17 184/89 12/05/18 18:30 75 21 174/116 12/05/18 18:00 61 21 159/70 12/05/18 17:33 76 166/79 12/05/18 17:30 68 25 H 166/79 12/05/18 17:00 67 14 167/79 12/05/18 16:30 62 24 149/69 12/05/18 16:00 98.6 F 80 77 20 167/86 12/05/18 15:30 80 15 167/86 12/05/18 15:00 73 21 149/98 12/05/18 14:55 72 29 H 12/05/18 14:30 81 16 143/106 12/05/18 14:19 64 161/73 12/05/18 14:00 68 16 161/73 12/05/18 13:30 58 L 21 151/69 12/05/18 13:00 70 14 117/84 12/05/18 12:30 62 15 115/76 12/05/18 12:05 76 132/77 12/05/18 12:00 98.5 F 68 68 14 132/64 12/05/18 11:30 53 L 19 125/60 Pulse Ox 12/06/18 09:15 12/06/18 09:00 12/06/18 08:25 99 12/06/18 08:23 12/06/18 08:00 92 12/06/18 07:30 98 07/31/19 07:00 98 12/06/18 06:30 97 12/06/18 06:00 98 12/06/18 05:30 97 12/06/18 05:00 97 12/06/18 04:30 95 12/06/18 04:22 100 12/06/18 04:00 96 12/06/18 03:41 12/06/18 03:30 96 12/06/18 03:25 12/06/18 03:00 96 12/06/18 02:30 93 12/06/18 02:00 97 12/06/18 01:30 97 12/06/18 01:00 96 12/06/18 00:30 92 12/06/18 00:00 96 12/05/18 23:42 95 12/05/18 23:30 99 12/05/18 23:00 94 12/05/18 22:30 98 12/05/18 22:28 98 12/05/18 22:00 95 12/05/18 21:30 97 12/05/18 21:00 89 12/05/18 20:30 96 12/05/18 20:00 96 12/05/18 19:50 12/05/18 19:30 94 12/05/18 19:15 96 12/05/18 19:00 95 12/05/18 18:30 97 12/05/18 18:00 97 12/05/18 17:33 97 12/05/18 17:30 96 12/05/18 17:00 97 12/05/18 16:30 97 12/05/18 16:00 96 12/05/18 15:30 92 12/05/18 15:00 97 12/05/18 14:55 12/05/18 14:30 100 12/05/18 14:19 97 12/05/18 14:00 12/05/18 13:30 12/05/18 13:00 94 12/05/18 12:30 94 12/05/18 12:05 95 12/05/18 12:00 94 12/05/18 11:30 99 - Physical Examination General: Other (intubated on the vent) HEENT: Positive: PERRL Cardiac: Positive: Reg Rate and Rhythm Neuro: Positive: Grossly Intact Extremities: Absent: edema - Labs and Meds Cardiac Enzymes 12/06/18 Range/Units 04:36 AST 41 H (5-40) units/L CBC 12/06/18 Range/Units 04:36 WBC 22.6 H (4.5-11.0) K/mm3 RBC 3.62 L (3.65-5.03) M/mm3 Hgb 9.9 L (10.1-14.3) gm/dl Hct 30.0 L (30.3-42.9) % Plt Count 208 (140-440) K/mm3 Comprehensive Metabolic Panel 12/06/18 Range/Units 04:36 Sodium 145 (137-145) mmol/L Potassium 3.7 (3.6-5.0) mmol/L Chloride 111.6 H (98-107) mmol/L Carbon Dioxide 25 (22-30) mmol/L BUN 17 (7-17) mg/dL Creatinine 0.7 (0.7-1.2) mg/dL Glucose 114 H (65-100) mg/dL Calcium 8.0 L (8.4-10.2) mg/dL AST 41 H (5-40) units/L ALT 54 (7-56) units/L Alkaline Phosphatase 128 (35-129) units/L Total Protein 6.3 (6.3-8.2) g/dL Albumin 2.3 L (3.9-5) g/dL - Allied health notes Allied health notes reviewed: nursing <TIFFANIE PEACE - Last Filed: 12/06/18 11:55> Assessment and Plan Has seen and evaluated the patient agreed with this plan as stated above. Patient currently has a new onset cardiomyopathy with ejection fraction of 30- 35%. At this time continue maximal medical therapy as blood pressure allows. We'll plan for left heart catheterization with the acute issues have Objective Vital Signs Temp Pulse Pulse Pulse Resp Resp BP 12/06/18 09:15 102 H 29 H 12/06/18 09:00 97 H 166/80 12/06/18 08:25 96 H 182/93 12/06/18 08:23 85 181/93 12/06/18 08:00 98.6 F 91 H 91 H 18 170/72 12/06/18 07:30 77 13 182/99 12/06/18 07:00 66 24 170/72 12/06/18 06:30 74 24 07/31/19 06:00 75 19 12/06/18 05:30 71 16 12/06/18 05:00 77 15 12/06/18 04:30 81 14 51/32 12/06/18 04:22 90 12/06/18 04:00 75 75 21 51/32 12/06/18 03:41 98.7 F 12/06/18 03:30 61 16 92/57 12/06/18 03:25 87 32 H 12/06/18 03:00 76 15 99/39 12/06/18 02:30 79 7 L 91/58 12/06/18 02:00 77 15 58/34 12/06/18 01:30 61 19 99/73 12/06/18 01:00 70 23 150/73 12/06/18 00:30 74 26 H 151/74 12/06/18 00:00 98.9 F 62 61 19 162/75 12/05/18 23:42 66 162/75 12/05/18 23:30 60 21 162/75 12/05/18 23:00 63 24 168/71 12/05/18 22:30 61 21 152/67 12/05/18 22:28 59 L 21 153/73 12/05/18 22:00 62 21 147/69 12/05/18 21:30 62 21 153/73 12/05/18 21:00 78 28 H 172/83 12/05/18 20:30 61 24 169/76 12/05/18 20:00 98.9 F 71 71 16 172/80 12/05/18 19:50 64 24 12/05/18 19:30 77 14 180/85 12/05/18 19:15 81 184/84 12/05/18 19:00 78 17 184/89 12/05/18 18:30 75 21 174/116 12/05/18 18:00 61 21 159/70 12/05/18 17:33 76 166/79 12/05/18 17:30 68 25 H 166/79 12/05/18 17:00 67 14 167/79 12/05/18 16:30 62 24 149/69 12/05/18 16:00 98.6 F 80 77 20 167/86 12/05/18 15:30 80 15 167/86 12/05/18 15:00 73 21 149/98 12/05/18 14:55 72 29 H 12/05/18 14:30 81 16 143/106 12/05/18 14:19 64 161/73 12/05/18 14:00 68 16 161/73 12/05/18 13:30 58 L 21 151/69 12/05/18 13:00 70 14 117/84 12/05/18 12:30 62 15 115/76 12/05/18 12:05 76 132/77 12/05/18 12:00 98.5 F 68 68 14 132/64 Pulse Ox 12/06/18 09:15 12/06/18 09:00 12/06/18 08:25 99 12/06/18 08:23 12/06/18 08:00 92 12/06/18 07:30 98 12/06/18 07:00 98 12/06/18 06:30 97 12/06/18 06:00 98 12/06/18 05:30 97 12/06/18 05:00 97 12/06/18 04:30 95 12/06/18 04:22 100 12/06/18 04:00 96 12/06/18 03:41 12/06/18 03:30 96 12/06/18 03:25 12/06/18 03:00 96 12/06/18 02:30 93 12/06/18 02:00 97 12/06/18 01:30 97 12/06/18 01:00 96 12/06/18 00:30 92 12/06/18 00:00 96 12/05/18 23:42 95 12/05/18 23:30 99 12/05/18 23:00 94 12/05/18 22:30 98 12/05/18 22:28 98 12/05/18 22:00 95 12/05/18 21:30 97 12/05/18 21:00 89 12/05/18 20:30 96 12/05/18 20:00 96 12/05/18 19:50 12/05/18 19:30 94 12/05/18 19:15 96 12/05/18 19:00 95 12/05/18 18:30 97 12/05/18 18:00 97 12/05/18 17:33 97 12/05/18 17:30 96 12/05/18 17:00 97 12/05/18 16:30 97 12/05/18 16:00 96 12/05/18 15:30 92 12/05/18 15:00 97 12/05/18 14:55 12/05/18 14:30 100 12/05/18 14:19 97 12/05/18 14:00 12/05/18 13:30 12/05/18 13:00 94 12/05/18 12:30 94 12/05/18 12:05 95 12/05/18 12:00 94 - Labs and Meds Cardiac Enzymes 12/06/18 Range/Units 04:36 AST 41 H (5-40) units/L CBC 12/06/18 Range/Units 04:36 WBC 22.6 H (4.5-11.0) K/mm3 RBC 3.62 L (3.65-5.03) M/mm3 Hgb 9.9 L (10.1-14.3) gm/dl Hct 30.0 L (30.3-42.9) % Plt Count 208 (140-440) K/mm3 Comprehensive Metabolic Panel 12/06/18 Range/Units 04:36 Sodium 145 (137-145) mmol/L Potassium 3.7 (3.6-5.0) mmol/L Chloride 111.6 H (98-107) mmol/L Carbon Dioxide 25 (22-30) mmol/L BUN 17 (7-17) mg/dL Creatinine 0.7 (0.7-1.2) mg/dL Glucose 114 H (65-100) mg/dL Calcium 8.0 L (8.4-10.2) mg/dL AST 41 H (5-40) units/L ALT 54 (7-56) units/L Alkaline Phosphatase 128 (35-129) units/L Total Protein 6.3 (6.3-8.2) g/dL Albumin 2.3 L (3.9-5) g/dL
[2018-12-06] MEDS: PLETAL PO SCH ×2 (12:48→22:10)
[2018-12-06] MEDS: POTASSIUM CHLORIDE FEEDTUBE SCH ×2 (12:48→18:03)
--- NOTE | 2018-12-06 12:53 | Progress Note ---
Assessment and Plan Assessment and plan: Septic shock -Probably secondary to bilateral pneumonia, ? aspiration -Continue cefepime and metronidazole -Off IV pressors, blood pressure improved -Blood and sputum cultures negative -ID following Acute hypoxemic respiratory failure -Status post intubation on mechanical ventilator -Wean off trial to be continued today -Pulmonology following S/p V. fib arrest, requiring cardioversion in the emergency room. MPI 09/16/2018 - normal Echo 09/16/2018 - normal LVEF -Cardiology considering further eval with coronary angio when pt is off MV Shock -septic versus cardiogenic -Off IV pressors. Blood pressure improved New onset systolic heart failure with EF of 30-35% -No acute exacerbation -Not on BB due to fluctuating heart rate, on ACEI Elevated troponin. -Etiology likely secondary to V. fib arrest/electrical shock. -Cont IV heparin drip, statin and asa New onset atrial fibrillation. -IV amiodarone discontinued due to underlying junctional rhythm. -rate fluctuating, will monitor -Cont IV heparin drip Acute right common femoral vein DVT Continue IV heparin Hypokalemia -Improved s/p repletion, will monitor level Hypomagnesemia -Improved s/p repletion, will monitor level H/o hypertension. -Patient hypotensive secondary to shock on admission. -Blood pressure trended up overnight, home antihypertensives resumed, will monitor Hyperglycemia -No prior history of diabetes mellitus -Hemoglobin A1c: 5.6 Hyperlipidemia. -Continue statin. Peripheral vascular disease -Home cilostazol resumed Normocytic anemia, likely chronic -H&H stable, will monitor Acute urinary retention -Continue Rosas catheter use Marijuana use -Cessation recommended Medication non-compliance -Patient counseled Obesity with BMI of 33.4 -Lifestyle modification recommended Nutrition: on tube feeding Disposition: Continue treatment in the ICU, pt is still on MV. Time spent: 37 minutes History Interval history: Patient reports feeling anxious. She denied chest pain or shortness of breath. Her wean off trial yesterday failed per her nurse. Hospitalist Physical - Constitutional Vitals: Temp Pulse Resp BP Pulse Ox 100.0 F H 106 H 29 H 155/88 100 12/06/18 12:00 12/06/18 11:55 12/06/18 09:15 12/06/18 11:55 12/06/18 11:55 General appearance: Present: no acute distress, other (intubated but awake and appears anxious) - EENT Eyes: Present: PERRL, EOM intact ENT: hearing intact, clear oral mucosa - Neck Neck: Present: supple - Respiratory Respiratory effort: normal Respiratory: bilateral: CTA - Cardiovascular Rhythm: irregularly irregular Heart Sounds: Present: S1 & S2 - Extremities Extremities: No edema - Abdominal General gastrointestinal: soft, non-tender, normal bowel sounds - Integumentary Integumentary: Present: clear, warm, dry - Psychiatric Psychiatric: other (appears anxious) - Neurologic Neurologic: moves all extremities Results - Labs CBC & Chem 7: 12/06/18 04:36 12/06/18 04:36 Labs: Laboratory Last Values WBC 22.6 K/mm3 (4.5-11.0) H 12/06/18 04:36 RBC 3.62 M/mm3 (3.65-5.03) L 12/06/18 04:36 Hgb 9.9 gm/dl (10.1-14.3) L 12/06/18 04:36 Hct 30.0 % (30.3-42.9) L 12/06/18 04:36 MCV 83 fl (79-97) 12/06/18 04:36 MCH 27 pg (28-32) L 12/06/18 04:36 MCHC 33 % (30-34) 12/06/18 04:36 RDW 16.4 % (13.2-15.2) H 12/06/18 04:36 Plt Count 208 K/mm3 (140-440) 12/06/18 04:36 Lymph % (Auto) Curtain Framer 12/02/18 00:30 [place] % (Auto) 1.3 % (0.0-7.3) 12/03/18 04:07 Eos % (Auto) 0.0 % (0.0-4.3) 12/03/18 04:07 Baso % (Auto) Curtain Framer 12/02/18 00:30 Lymph # Curtain Framer 12/02/18 00:30 [place] # 0.3 K/mm3 (0.0-0.8) 12/03/18 04:07 Eos # 0.0 K/mm3 (0.0-0.4) 12/03/18 04:07 Baso # 0.0 K/mm3 (0.0-0.1) 12/03/18 04:07 Add Manual Diff Complete 12/06/18 04:36 Total Counted 100 12/06/18 04:36 Seg Neutrophils % Curtain Framer 12/02/18 00:30 Seg Neuts % (Manual) 90.0 % (40.0-70.0) H 12/06/18 04:36 1.0 % 12/06/18 04:36 6.0 % (13.4-35.0) L 12/06/18 04:36 Reactive Lymphs % (Man) 0 % 12/06/18 04:36 1.0 % (0.0-7.3) 12/06/18 04:36 0 % (0.0-4.3) 12/06/18 04:36 0 % (0.0-1.8) 12/06/18 04:36 2.0 % 12/06/18 04:36 0 % 12/06/18 04:36 0 % 12/06/18 04:36 0 % 12/06/18 04:36 Nucleated RBC % Not Reportable 12/06/18 04:36 Seg Neutrophils # 24.3 K/mm3 (1.8-7.7) H 12/03/18 04:07 Seg Neutrophils # Man 20.3 K/mm3 (1.8-7.7) H 12/06/18 04:36 Band Neutrophils # 0.2 K/mm3 12/06/18 04:36 1.4 K/mm3 (1.2-5.4) 12/06/18 04:36 Abs React Lymphs (Man) 0.0 K/mm3 12/06/18 04:36 0.2 K/mm3 (0.0-0.8) 12/06/18 04:36 0.0 K/mm3 (0.0-0.4) 12/06/18 04:36 0.0 K/mm3 (0.0-0.1) 12/06/18 04:36 0.5 K/mm3 12/06/18 04:36 0.0 K/mm3 12/06/18 04:36 0.0 K/mm3 12/06/18 04:36 Blast Cells # 0.0 K/mm3 12/06/18 04:36 WBC Morphology Not Reportable 12/06/18 04:36 Hypersegmented Neuts Not Reportable 12/06/18 04:36 Hyposegmented Neuts Not Reportable 12/06/18 04:36 Hypogranular Neuts Not Reportable 12/06/18 04:36 Not Reportable 12/06/18 04:36 Not Reportable 12/06/18 04:36 Not Reportable 12/06/18 04:36 Not Reportable 12/06/18 04:36 Not Reportable 12/06/18 04:36 Not Reportable 12/06/18 04:36 Consistent w auto 12/06/18 04:36 Not Reportable 12/06/18 04:36 Plt Clumps, EDTA Not Reportable 12/06/18 04:36 Not Reportable 12/06/18 04:36 Not Reportable 12/06/18 04:36 Not Reportable 12/06/18 04:36 Plt Morphology Comment Not Reportable 12/06/18 04:36 RBC Morphology Normal 12/06/18 04:36 Dimorphic RBCs Not Reportable 12/06/18 04:36 Not Reportable 12/06/18 04:36 Not Reportable 12/06/18 04:36 Not Reportable 12/06/18 04:36 Not Reportable 12/06/18 04:36 Not Reportable 12/06/18 04:36 Not Reportable 12/06/18 04:36 Not Reportable 12/06/18 04:36 Not Reportable 12/06/18 04:36 Not Reportable 12/06/18 04:36 Not Reportable 12/06/18 04:36 Not Reportable 12/06/18 04:36 Not Reportable 12/06/18 04:36 Not Reportable 12/06/18 04:36 Not Reportable 12/06/18 04:36 Not Reportable 12/06/18 04:36 Not Reportable 12/06/18 04:36 Not Reportable 12/06/18 04:36 Not Reportable 12/06/18 04:36 Not Reportable 12/06/18 04:36 Acanthocytes (Spur) Not Reportable 12/06/18 04:36 Rouleaux Not Reportable 12/06/18 04:36 Not Reportable 12/06/18 04:36 Not Reportable 12/06/18 04:36 Not Reportable 12/06/18 04:36 Not Reportable 12/06/18 04:36 Hem Pathologist Commnt No 12/06/18 04:36 PT 14.4 Sec. (12.2-14.9) 12/02/18 10:50 INR 1.15 (0.87-1.13) H 12/02/18 10:50 APTT 26.5 Sec. (24.2-36.6) 12/02/18 10:50 1085.94 ng/mlDDU (0-234) H 12/02/18 00:30 Heparin Anti-Xa Level < 0.10 U.I./ml (0.3-0.7) L 12/06/18 04:36 POC ABG pH 7.315 (7.35-7.45) L 12/05/18 05:49 POC ABG pCO2 42.6 (35-45) 12/05/18 05:49 POC ABG pO2 84 (80-105) 12/05/18 05:49 POC ABG HCO3 21.7 (22-26 mml/L) 12/05/18 05:49 POC ABG Total CO2 23 (23-27mmol/L) 12/05/18 05:49 POC ABG O2 Sat 95 12/05/18 05:49 POC ABG Base Excess -4 ((-2) - (+3)mmol/L) 12/05/18 05:49 40 % 12/05/18 05:49 Sodium 145 mmol/L (137-145) 12/06/18 04:36 Potassium 3.7 mmol/L (3.6-5.0) 12/06/18 04:36 Chloride 111.6 mmol/L (98-107) H 12/06/18 04:36 Carbon Dioxide 25 mmol/L (22-30) 12/06/18 04:36 12 mmol/L 12/06/18 04:36 BUN 17 mg/dL (7-17) 12/06/18 04:36 0.7 mg/dL (0.7-1.2) 12/06/18 04:36 Estimated GFR > 60 ml/min 12/06/18 04:36 24 % 12/06/18 04:36 Glucose 114 mg/dL (65-100) H 12/06/18 04:36 POC Glucose 122 (70-105) H 12/06/18 11:46 5.6 % (4-6) 12/04/18 08:03 Lactic Acid 1.60 mmol/L (0.7-2.0) 12/05/18 05:22 Calcium 8.0 mg/dL (8.4-10.2) L 12/06/18 04:36 Magnesium 2.30 mg/dL (1.7-2.3) 12/06/18 04:36 0.30 mg/dL (0.1-1.2) 12/06/18 04:36 AST 41 units/L (5-40) H 12/06/18 04:36 ALT 54 units/L (7-56) 12/06/18 04:36 128 units/L (35-129) 12/06/18 04:36 1322 units/L (30-135) H 12/02/18 10:50 CK-MB (CK-2) 216.7 ng/mL (0.0-4.0) H 12/02/18 10:50 CK-MB (CK-2) Rel Index 16.3 (0-4) H 12/02/18 10:50 0.871 ng/mL (0.00-0.029) H* D 12/02/18 10:50 32.60 mg/dL (0.00-1.30) H 12/04/18 05:23 6.3 g/dL (6.3-8.2) 12/06/18 04:36 2.3 g/dL (3.9-5) L 12/06/18 04:36 0.6 % 12/06/18 04:36 Triglycerides 358 mg/dL (2-149) H 12/02/18 03:14 Cholesterol 111 mg/dL (50-199) 12/02/18 03:14 42 mg/dL (50-130) L 12/02/18 03:14 29 mg/dL (40-59) L 12/02/18 03:14 3.82 % 12/02/18 03:14 Colorless (Yellow) 12/02/18 02:58 Clear (Clear) 12/02/18 02:58 7.0 (5.0-7.0) 12/02/18 02:58 Ur Specific [place] 1.008 (1.003-1.030) 12/02/18 02:58 100 mg/dl mg/dL (Negative) 12/02/18 02:58 >=500 mg/dL (Negative) 12/02/18 02:58 Neg mg/dL (Negative) 12/02/18 02:58 Sm (Negative) 12/02/18 02:58 Neg (Negative) 12/02/18 02:58 Neg (Negative) 12/02/18 02:58 < 2.0 mg/dL (<2.0) 12/02/18 02:58 Ur Leukocyte Esterase Neg (Negative) 12/02/18 02:58 12.0 /HPF (0.0-6.0) H 12/02/18 02:58 7.0 /HPF (0.0-6.0) 12/02/18 02:58 U Epithel Cells (Auto) < 1.0 /HPF (0-13.0) 12/02/18 02:58 Few /HPF 12/02/18 02:58 Presumptive negative 12/02/18 02:58 Presumptive negative 12/02/18 02:58 Ur Barbiturates Screen Presumptive negative 12/02/18 02:58 Ur Phencyclidine Scrn Presumptive negative 12/02/18 02:58 Ur Amphetamines Screen Presumptive negative 12/02/18 02:58 U Benzodiazepines Scrn Presumptive negative 12/02/18 02:58 Presumptive negative 12/02/18 02:58 U Marijuana (THC) Screen Presumptive positive 12/02/18 02:58 Disclamer 12/02/18 02:58 Active Medications - Current Medications Current Medications: Generic Name Dose Route Start Last Admin Trade Name Freq PRN Reason Stop Dose Admin Acetaminophen 650 mg 12/02/18 05:03 Tylenol PO Q4H PRN Pain MILD(1-3)/Fever >100.5/TORRES Albuterol/Ipratropium 1 ampul 12/02/18 08:00 12/06/18 08:32 Duoneb *Not For Prn Use* IH 1 ampul Q6HRT DC Administration Amlodipine Besylate 10 mg 12/06/18 10:00 Norvasc PO DAILY DC Lipase/Protease/Amylase 1 each 12/05/18 09:15 Pancreaze 10,500 Unit FEEDTUBE PRN PRN For Clogged Feeding Tube Aspirin 325 mg 12/02/18 12:00 12/06/18 09:18 Ecotrin PO 325 mg QDAY DC Administration Atorvastatin Calcium 20 mg 12/06/18 22:00 Lipitor PO QHS DC Cilostazol 100 mg 12/06/18 11:00 Pletal PO BID DC Dextrose 25 ml 12/04/18 19:06 D50w (25gm) Syringe IV PRN PRN Hypoglycemia Famotidine 20 mg 12/06/18 10:00 12/06/18 09:20 Pepcid PO Not Given BID DC Fentanyl 50 mcg 12/02/18 04:00 Sublimaze IV Q10MIN PRN ANALGESIA Hydralazine HCl 10 mg 12/06/18 09:44 Apresoline IV Q4HR PRN Blood Pressure Hydrophilic Ointment 1 applic 12/02/18 00:45 Vaseline Lip Therapy TP Q2HR PRN Dry Lips Propofol 1,000 mg in 100 mls @ 2.82 mls/hr 12/02/18 01:00 12/02/18 08:30 Diprivan 10 Mg/Ml IV 0 mcg/kg/min TITR DC 0 mls/hr Titration Protocol 5 MCG/KG/MIN Fentanyl Citrate 2,000 mcg in 100 mls @ 4.7 mls/hr 12/02/18 04:00 12/06/18 09:11 Fentanyl Drip Premix IV 3 mcg/kg/hr TITR DC 14.1 mls/hr Titration Protocol 1 MCG/KG/HR Norepinephrine 4 mg in 250 mls @ 7.5 mls/hr 12/02/18 04:15 12/04/18 18:45 Levophed Drip 4 Mg/Ns 250 Ml IV 0 mcg/min TITR DC 0 mls/hr Titration Protocol 2 MCG/MIN Heparin Sodium/Sodium Chloride 25,000 unit in 500 mls @ 20 mls/hr 12/02/18 11:00 12/06/18 06:02 Heparin/ 0.45% Nacl-25,000 Unit/500 Ml IV 1,800 units/hr TITRATE DC 36 mls/hr Titration Protocol 1,000 UNITS/HR Cefepime HCl 1 gm in 100 mls @ 200 mls/hr 12/03/18 16:00 12/05/18 21:29 Maxipime/Ns 1 Gm/100 Ml IV 200 mls/hr Q8HR DC Administration Protocol Metronidazole 500 mg in 100 mls @ 100 mls/hr 12/03/18 16:00 12/05/18 21:29 Flagyl 500 Mg/100 Ml IV 100 mls/hr Q8HR [facility] Administration Protocol Insulin Human Lispro 0 unit 12/04/18 07:00 12/06/18 12:44 Humalog SUB-Q Not Given Q6HR [facility] Protocol Lorazepam 1 mg 12/06/18 09:26 Ativan IV Q4H PRN Anxiety Multi-Ingred Cream/Lotion/Oil/Oint 1 applic 12/02/18 00:45 Artificial Tears Ophth Oint OU Q4HR PRN Dry Eye(s) Ondansetron HCl 4 mg 12/02/18 05:03 Zofran IV Q8H PRN Nausea And Vomiting Potassium Chloride 20 meq 12/06/18 11:00 Potassium Chloride FEEDTUBE 12/06/18 15:01 Q4H [facility] Quetiapine Fumarate 100 mg 12/06/18 22:00 Seroquel PO QHS DC Simple Syrup 15 ml 12/05/18 09:15 Simple Syrup FEEDTUBE PRN PRN Hypoglycemia Simple Syrup 30 ml 12/05/18 09:15 Simple Syrup FEEDTUBE PRN PRN Hypoglycemia Sodium Bicarbonate 325 mg 12/05/18 09:15 Sodium Bicarbonate FEEDTUBE PRN PRN For Clogged Feeding Tube Sodium Chloride 10 ml 12/02/18 10:00 12/06/18 09:19 Sodium Chloride Flush Syringe 10 Ml IV 10 ml BID DC Administration Sodium Chloride 10 ml 12/02/18 05:03 Sodium Chloride Flush Syringe 10 Ml IV PRN PRN LINE FLUSH Triamterene/HCTZ 1 each 12/06/18 10:00 Maxzide-25 PO QAM [facility] Nutrition/Malnutrition Assess - Dietary Evaluation Nutrition/Malnutrition Findings: Nutrition Notes Start: 12/02/18 08:27 Freq: Status: Active Protocol: Document 12/05/18 09:13 MEKHI (Rec: 12/05/18 09:15 MEKHI [id number] [email or web address]) Nutrition Notes Need for Assessment generated from: MD Order Initial or Follow up Brief Note Current Diet NPO Labs/Tests Mg 2.5 Subjective/Other Information RD consulted for TF. Pt remains on vent support. Nutrition Intervention Nutrition Support: Vital HP at 55ml/hr with 50ml water flush q4h. Kcal 1,320 Protein (gm) 116 Carbohydrates (gm) 148 Fat (gm) 31 Fluid (mL) 1,104 Fiber (gm) 0 Goal #1 TF tolerance Goal #2 TF to meet 65-70% energy and 90-100% pro needs Follow-Up By: 12/07/18 Additional Comments F/U: new TF, vent status
[2018-12-06] MEDS ORDERED: ZESTRIL PO SCH (13:00)
[2018-12-06] MEDS: FLAGYL 500 MG/100 ML 500 MG/100 ML BAG IV SCH ×3 (13:12→22:10)
[2018-12-06] MEDS: MAXIPIME/NS 1 GM/100 ML 1 GM/100 ML BAG IV SCH ×2 (13:13)
--- NOTE | 2018-12-06 16:06 | Progress Note ---
Assessment and Plan Cultures: 12/02/2018 sputum culture: Usual respiratory nolan 12/02/2018 urine culture: No growth 12/02/2018 blood culture: No growth A/P: 53-year-old female with hypertension, hyperlipidemia, peripheral vascular disease presented to the emergency room on 12/02/2018 with complaints of chest pain, developed V.fib arrest, now with: 1) Shock, multifactorial: Cardiogenic versus septic. Patient with V. fib arrest. Developed bilateral aspiration pneumonia vs pneumonitis. Now alert, oriented 2) Bilateral airspace disease with concern for pneumonia with acute respiratory failure: CXR and CT chest showed bilateral airspace disease. Noted to have gastric content aspiration on admission. Empirically treat with IV cefepime and Flagyl. Cultures negative. Would increase dose of cefepime to 2g q8h. 3) Mixed acidosis: on admission. Lactate remains elevated. 4) V.fib arrest: cardiology following. EF 30-35%. Recs: Follow-up cultures. Empiric IV cefepime and Flagyl Increase cefepime to 2g q8h Expected duration of 8 days Thank you for involving us in the care of Ms. Tarango. We will continue to follow with you. Luis Earl MD [facility] ([facility] C: [phone] O: [phone] F: [phone] Subjective Date of service: 12/06/18 Principal diagnosis: Ac hypoxemic resp failure; ARDS; Septic Shock; DVT; Cardiac arrest Interval history: Remains intubated but alert and oriented. Main complaint is being intubated and RLE edema which has been present for the past 5 days. Objective - Exam Narrative Exam: Constitutional: awake, no distress, following commands Head, Ears, Nose: Normocephalic, atraumatic. External ears, nose normal Eyes: Conjunctivae/corneas clear. No icterus. No ptosis. Neck: Supple, no meningeal signs Oral: Intubated Cardiovascular: S1, S2 normal. Normal rhythm Respiratory: Good air entry, clear to auscultation bilaterally GI: Soft, non-tender; bowel sounds normal. No peritoneal signs Musculoskeletal: RLE edema 2 Skin: No rash or abscess Hem/Lymphatic: No palpable cervical or supraclavicular nodes. No lymphangitis Psych: no agitation Neurological: Moves all extremities, no focal defects - Constitutional Vitals: Vital Signs Temp Pulse Resp BP Pulse Ox 100.0 F H 102 H 19 146/78 93 12/06/18 12:00 12/06/18 15:00 12/06/18 15:00 12/06/18 15:00 12/06/18 15:00 Temperature -Last 24 Hours Temperature 100.0 F Temperature 98.6 F Temperature 98.6 F Temperature 98.7 F Temperature 98.9 F Temperature 98.9 F - Labs CBC & Chem 7: 12/06/18 04:36 12/06/18 04:36 Labs: Abnormal lab results 12/05/18 12/06/18 12/06/18 Range/Units 21:04 04:36 04:36 WBC 22.6 H (4.5-11.0) K/mm3 RBC 3.62 L (3.65-5.03) M/mm3 Hgb 9.9 L (10.1-14.3) gm/dl Hct 30.0 L (30.3-42.9) % MCH 27 L (28-32) pg RDW 16.4 H (13.2-15.2) % Seg Neuts % (Manual) 90.0 H (40.0-70.0) % Lymphocytes % (Manual) 6.0 L (13.4-35.0) % Seg Neutrophils # Man 20.3 H (1.8-7.7) K/mm3 Heparin Anti-Xa Level 0.14 L (0.3-0.7) U.I./ml Chloride 111.6 H (98-107) mmol/L Glucose 114 H (65-100) mg/dL POC Glucose (70-105) Calcium 8.0 L (8.4-10.2) mg/dL AST 41 H (5-40) units/L Albumin 2.3 L (3.9-5) g/dL 12/06/18 12/06/18 12/06/18 Range/Units 04:36 05:37 11:46 WBC (4.5-11.0) K/mm3 RBC (3.65-5.03) M/mm3 Hgb (10.1-14.3) gm/dl Hct (30.3-42.9) % MCH (28-32) pg RDW (13.2-15.2) % Seg Neuts % (Manual) (40.0-70.0) % Lymphocytes % (Manual) (13.4-35.0) % Seg Neutrophils # Man (1.8-7.7) K/mm3 Heparin Anti-Xa Level < 0.10 L (0.3-0.7) U.I./ml Chloride (98-107) mmol/L Glucose (65-100) mg/dL POC Glucose 121 H 122 H (70-105) Calcium (8.4-10.2) mg/dL AST (5-40) units/L Albumin (3.9-5) g/dL 12/06/18 Range/Units 14:15 WBC (4.5-11.0) K/mm3 RBC (3.65-5.03) M/mm3 Hgb (10.1-14.3) gm/dl Hct (30.3-42.9) % MCH (28-32) pg RDW (13.2-15.2) % Seg Neuts % (Manual) (40.0-70.0) % Lymphocytes % (Manual) (13.4-35.0) % Seg Neutrophils # Man (1.8-7.7) K/mm3 Heparin Anti-Xa Level 1.22 H (0.3-0.7) U.I./ml Chloride (98-107) mmol/L Glucose (65-100) mg/dL POC Glucose (70-105) Calcium (8.4-10.2) mg/dL AST (5-40) units/L Albumin (3.9-5) g/dL - Imaging and cardiology Chest x-ray: image reviewed (Worsening b/l airspace disease)
[2018-12-06] MEDS ORDERED: LASIX IV SCH (18:00)
[2018-12-06] MEDS ORDERED: POTASSIUM CHLORIDE FEEDTUBE SCH (18:00)
[2018-12-07] MEDS: MAXIPIME/NS 2 GM/100 ML 2 GM/100 ML BAG IV SCH ×4 (00:29→21:10)
[2018-12-07] MEDS: DUONEB *Not for PRN Use IH SCH ×4 (01:50→19:18)
[2018-12-07] MEDS ORDERED: CARDIZEM IV ONE (02:52)
--- NOTE | 2018-12-07 03:15 | XRay Report ---
CHEST 1 VIEW INDICATION / CLINICAL INFORMATION: follow up respiratory failure. COMPARISON: 12/06/2018 at 0207 hours FINDINGS: SUPPORT DEVICES: Endotracheal tube, nasogastric tube HEART / MEDIASTINUM: No significant abnormality. LUNGS / PLEURA: Bilateral airspace disease No pneumothorax. ADDITIONAL FINDINGS: No significant additional findings. IMPRESSION: Bilateral airspace disease has improved some since yesterday. No other interval change Signer Name: Eriberto Dela Cruz MD FACR Signed: 12/07/2018 3:10 AM Workstation Name: [id number]
[2018-12-07] MEDS: CORDARONE 900 MG in D5W 482 ML IV SCH (03:29)
[2018-12-07] MEDS ORDERED: LOPRESSOR IV NR (04:22)
[2018-12-07] MEDS: LEVOPHED DRIP 4 MG/NS 250 ML 4 MG/250 ML BAG IV SCH (04:51)
[2018-12-07 05:10] LABS: Hematocrit 29.4 % (30.3-42.9); Hemoglobin 9.7 gm/dl (10.1-14.3); Mean Corpuscular HGB Conc 33 % (30-34); Mean Corpuscular Volume 83 fl (79-97); Platelet Count 240 K/mm3 (140-440); Red Blood Count 3.56 M/mm3 (3.65-5.03); Red Cell Distribution Width 15.9 % (13.2-15.2)
[2018-12-07 05:20] LABS: BUN/Creatinine Ratio 29; Blood Urea Nitrogen 20 mg/dL (7-17); Hemolysis Index 1
[2018-12-07] MEDS: FLAGYL 500 MG/100 ML 500 MG/100 ML BAG IV SCH ×3 (06:25→21:08)
[2018-12-07] MEDS: fentaNYL DRIP Premix 2,000 MCG/100 ML BAG IV SCH ×2 (06:25→22:46)
[2018-12-07] MEDS: HumaLOG SUB-Q SCH ×4 (06:27→17:55)
[2018-12-07 07:07] LABS: Basophils % (Manual) 0 % (0.0-1.8); Total Cells Counted 100
[2018-12-07 07:08] LABS: Anisocytosis Few; Platelet Estimate Consistent w Auto; Poikilocytosis Rare
[2018-12-07] MEDS: SODIUM CHLORIDE FLUSH SYRINGE 10 ML IV SCH ×2 (07:45→09:47)
[2018-12-07] MEDS: LOPRESSOR IV SCH ×3 (09:44→22:47)
[2018-12-07] MEDS: PEPCID PO SCH ×2 (09:45→21:08)
[2018-12-07] MEDS: PLETAL PO SCH ×2 (09:45→21:09)
[2018-12-07] MEDS: ASPIRIN PO SCH (09:46)
[2018-12-07] MEDS ORDERED: POTASSIUM CHLORIDE FEEDTUBE SCH (10:00)
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
--- NOTE | 2018-12-07 10:03 | Progress Note ---
Assessment and Plan Assessment and plan: Septic shock -Probably secondary to bilateral pneumonia, ? aspiration -Continue cefepime and metronidazole -BP trended down overnight, IV pressor restarted -WBC level trended, will monitor -Blood and sputum cultures negative -ID following Acute hypoxemic respiratory failure -Status post intubation on mechanical ventilator -IV sedation restarted -Pulmonology following S/p V. fib arrest, requiring cardioversion in the emergency room. MPI 09/16/2018 - normal Echo 09/16/2018 - normal LVEF -Cardiology considering further eval with coronary angio when pt is off MV Shock -septic versus cardiogenic -IV pressor restarted. New onset systolic heart failure with EF of 30-35% -No acute exacerbation -On BB, not on ACEI due to hypotension Elevated troponin. -Etiology likely secondary to V. fib arrest/electrical shock. -Cont IV heparin drip, BB, statin and asa New onset atrial fibrillation. -IV amiodarone restarted and IV Lopressor added -Currently in sinus rhythm and rate improving, will monitor -Cont IV heparin drip Acute right common femoral vein DVT -Continue IV heparin Hypokalemia -On repletion, will monitor level Hypomagnesemia -Improved s/p repletion, will monitor level H/o hypertension. -Patient currently hypotensive and on IV pressor -home antihypertensives on hold Hyperglycemia -No prior history of diabetes mellitus -Hemoglobin A1c: 5.6 Hyperlipidemia. -Continue statin. Peripheral vascular disease -Cont cilostazol Normocytic anemia, likely chronic -H&H stable, will monitor Marijuana use -Cessation recommended Medication non-compliance -Patient counseled Obesity with BMI of 33.4 -Lifestyle modification recommended Nutrition: on tube feeding Disposition: Continue treatment in the ICU, pt is still on MV. Time spent: 38 minutes History Interval history: Patient currently intubated and sedated. Overnight, her heart rate trended up to the 200s, so the IV amiodarone was restarted in addition to IV Lopressor. This morning, she converted back to sinus rhythm Hospitalist Physical - Constitutional Vitals: Temp Pulse Resp BP Pulse Ox 98.7 F 74 25 H 106/52 96 12/07/18 08:00 12/07/18 09:44 12/07/18 09:00 12/07/18 09:44 12/07/18 09:00 General appearance: Present: no acute distress, other (intubated but sedated) - EENT Eyes: Present: PERRL ENT: clear oral mucosa - Neck Neck: Present: supple - Respiratory Respiratory effort: normal Respiratory: right: rales, left: CTA - Cardiovascular Rhythm: regular Heart Sounds: Present: S1 & S2 - Extremities Extremity abnormal: edema (RT LE) - Abdominal General gastrointestinal: soft, non-tender, normal bowel sounds - Integumentary Integumentary: Present: clear, warm, dry - Neurologic Neurologic: other (Pt is intubated and sedated) Results - Labs CBC & Chem 7: 12/07/18 04:45 12/07/18 04:45 Labs: Laboratory Last Values WBC 16.6 K/mm3 (4.5-11.0) H 12/07/18 04:45 RBC 3.56 M/mm3 (3.65-5.03) L 12/07/18 04:45 Hgb 9.7 gm/dl (10.1-14.3) L 12/07/18 04:45 Hct 29.4 % (30.3-42.9) L 12/07/18 04:45 MCV 83 fl (79-97) 12/07/18 04:45 MCH 27 pg (28-32) L 12/07/18 04:45 MCHC 33 % (30-34) 12/07/18 04:45 RDW 15.9 % (13.2-15.2) H 12/07/18 04:45 Plt Count 240 K/mm3 (140-440) 12/07/18 04:45 Lymph % (Auto) Blast Furnace Checker 12/02/18 00:30 [place] % (Auto) 1.3 % (0.0-7.3) 12/03/18 04:07 Eos % (Auto) 0.0 % (0.0-4.3) 12/03/18 04:07 Baso % (Auto) Blast Furnace Checker 12/02/18 00:30 Lymph # Blast Furnace Checker 12/02/18 00:30 [place] # 0.3 K/mm3 (0.0-0.8) 12/03/18 04:07 Eos # 0.0 K/mm3 (0.0-0.4) 12/03/18 04:07 Baso # 0.0 K/mm3 (0.0-0.1) 12/03/18 04:07 Add Manual Diff Complete 12/07/18 04:45 Total Counted 100 12/07/18 04:45 Seg Neutrophils % Blast Furnace Checker 12/02/18 00:30 Seg Neuts % (Manual) 86.0 % (40.0-70.0) H 12/07/18 04:45 0 % 12/07/18 04:45 12.0 % (13.4-35.0) L 12/07/18 04:45 Reactive Lymphs % (Man) 0 % 12/07/18 04:45 1.0 % (0.0-7.3) 12/07/18 04:45 1.0 % (0.0-4.3) 12/07/18 04:45 0 % (0.0-1.8) 12/07/18 04:45 0 % 12/07/18 04:45 0 % 12/07/18 04:45 0 % 12/07/18 04:45 0 % 12/07/18 04:45 Nucleated RBC % Not Reportable 12/07/18 04:45 Seg Neutrophils # 24.3 K/mm3 (1.8-7.7) H 12/03/18 04:07 Seg Neutrophils # Man 14.3 K/mm3 (1.8-7.7) H 12/07/18 04:45 Band Neutrophils # 0.0 K/mm3 12/07/18 04:45 2.0 K/mm3 (1.2-5.4) 12/07/18 04:45 Abs React Lymphs (Man) 0.0 K/mm3 12/07/18 04:45 0.2 K/mm3 (0.0-0.8) 12/07/18 04:45 0.2 K/mm3 (0.0-0.4) 12/07/18 04:45 0.0 K/mm3 (0.0-0.1) 12/07/18 04:45 0.0 K/mm3 12/07/18 04:45 0.0 K/mm3 12/07/18 04:45 0.0 K/mm3 12/07/18 04:45 Blast Cells # 0.0 K/mm3 12/07/18 04:45 WBC Morphology Not Reportable 12/07/18 04:45 Hypersegmented Neuts Not Reportable 12/07/18 04:45 Hyposegmented Neuts Not Reportable 12/07/18 04:45 Hypogranular Neuts Not Reportable 12/07/18 04:45 Not Reportable 12/07/18 04:45 Not Reportable 12/07/18 04:45 Not Reportable 12/07/18 04:45 Not Reportable 12/07/18 04:45 Not Reportable 12/07/18 04:45 Not Reportable 12/07/18 04:45 Consistent w auto 12/07/18 04:45 Not Reportable 12/07/18 04:45 Plt Clumps, EDTA Not Reportable 12/07/18 04:45 Not Reportable 12/07/18 04:45 Not Reportable 12/07/18 04:45 Not Reportable 12/07/18 04:45 Plt Morphology Comment Not Reportable 12/07/18 04:45 RBC Morphology Not Reportable 12/07/18 04:45 Dimorphic RBCs Not Reportable 12/07/18 04:45 Not Reportable 12/07/18 04:45 Not Reportable 12/07/18 04:45 Rare 12/07/18 04:45 Few 12/07/18 04:45 Not Reportable 12/07/18 04:45 Not Reportable 12/07/18 04:45 Not Reportable 12/07/18 04:45 Not Reportable 12/07/18 04:45 Not Reportable 12/07/18 04:45 Not Reportable 12/07/18 04:45 Not Reportable 12/07/18 04:45 Not Reportable 12/07/18 04:45 Not Reportable 12/07/18 04:45 Not Reportable 12/07/18 04:45 Not Reportable 12/07/18 04:45 Not Reportable 12/07/18 04:45 Not Reportable 12/07/18 04:45 Not Reportable 12/07/18 04:45 Not Reportable 12/07/18 04:45 Acanthocytes (Spur) Not Reportable 12/07/18 04:45 Rouleaux Not Reportable 12/07/18 04:45 Not Reportable 12/07/18 04:45 Not Reportable 12/07/18 04:45 Not Reportable 12/07/18 04:45 Not Reportable 12/07/18 04:45 Hem Pathologist Commnt No 12/07/18 04:45 PT 14.4 Sec. (12.2-14.9) 12/02/18 10:50 INR 1.15 (0.87-1.13) H 12/02/18 10:50 APTT 26.5 Sec. (24.2-36.6) 12/02/18 10:50 1085.94 ng/mlDDU (0-234) H 12/02/18 00:30 Heparin Anti-Xa Level < 0.10 U.I./ml (0.3-0.7) L 12/07/18 06:45 POC ABG pH 7.437 (7.35-7.45) 12/07/18 03:23 POC ABG pCO2 35.1 (35-45) 12/07/18 03:23 POC ABG pO2 60 (80-105) L 12/07/18 03:23 POC ABG HCO3 23.7 (22-26 mml/L) 12/07/18 03:23 POC ABG Total CO2 25 (23-27mmol/L) 12/07/18 03:23 POC ABG O2 Sat 92 12/07/18 03:23 POC ABG Base Excess -1 ((-2) - (+3)mmol/L) 12/07/18 03:23 50 % 12/07/18 03:23 Sodium 145 mmol/L (137-145) 12/07/18 04:45 Potassium 3.2 mmol/L (3.6-5.0) L 12/07/18 04:45 Chloride 107.6 mmol/L (98-107) H 12/07/18 04:45 Carbon Dioxide 28 mmol/L (22-30) 12/07/18 04:45 13 mmol/L 12/07/18 04:45 BUN 20 mg/dL (7-17) H 12/07/18 04:45 0.7 mg/dL (0.7-1.2) 12/07/18 04:45 Estimated GFR > 60 ml/min 12/07/18 04:45 29 % 12/07/18 04:45 Glucose 138 mg/dL (65-100) H 12/07/18 04:45 POC Glucose 160 (70-105) H 12/07/18 05:47 5.6 % (4-6) 12/04/18 08:03 Lactic Acid 1.60 mmol/L (0.7-2.0) 12/05/18 05:22 Calcium 8.0 mg/dL (8.4-10.2) L 12/07/18 04:45 Phosphorus 1.80 mg/dL (2.5-4.5) L 12/07/18 09:14 Magnesium 1.90 mg/dL (1.7-2.3) 12/07/18 09:14 0.30 mg/dL (0.1-1.2) 12/06/18 04:36 AST 41 units/L (5-40) H 12/06/18 04:36 ALT 54 units/L (7-56) 12/06/18 04:36 128 units/L (35-129) 12/06/18 04:36 1322 units/L (30-135) H 12/02/18 10:50 CK-MB (CK-2) 216.7 ng/mL (0.0-4.0) H 12/02/18 10:50 CK-MB (CK-2) Rel Index 16.3 (0-4) H 12/02/18 10:50 0.871 ng/mL (0.00-0.029) H* D 12/02/18 10:50 32.60 mg/dL (0.00-1.30) H 12/04/18 05:23 6.3 g/dL (6.3-8.2) 12/06/18 04:36 2.3 g/dL (3.9-5) L 12/06/18 04:36 0.6 % 12/06/18 04:36 Triglycerides 358 mg/dL (2-149) H 12/02/18 03:14 Cholesterol 111 mg/dL (50-199) 12/02/18 03:14 42 mg/dL (50-130) L 12/02/18 03:14 29 mg/dL (40-59) L 12/02/18 03:14 3.82 % 12/02/18 03:14 Colorless (Yellow) 12/02/18 02:58 Clear (Clear) 12/02/18 02:58 7.0 (5.0-7.0) 12/02/18 02:58 Ur Specific [place] 1.008 (1.003-1.030) 12/02/18 02:58 100 mg/dl mg/dL (Negative) 12/02/18 02:58 >=500 mg/dL (Negative) 12/02/18 02:58 Neg mg/dL (Negative) 12/02/18 02:58 Sm (Negative) 12/02/18 02:58 Neg (Negative) 12/02/18 02:58 Neg (Negative) 12/02/18 02:58 < 2.0 mg/dL (<2.0) 12/02/18 02:58 Ur Leukocyte Esterase Neg (Negative) 12/02/18 02:58 12.0 /HPF (0.0-6.0) H 12/02/18 02:58 7.0 /HPF (0.0-6.0) 12/02/18 02:58 U Epithel Cells (Auto) < 1.0 /HPF (0-13.0) 12/02/18 02:58 Few /HPF 12/02/18 02:58 Presumptive negative 12/02/18 02:58 Presumptive negative 12/02/18 02:58 Ur Barbiturates Screen Presumptive negative 12/02/18 02:58 Ur Phencyclidine Scrn Presumptive negative 12/02/18 02:58 Ur Amphetamines Screen Presumptive negative 12/02/18 02:58 U Benzodiazepines Scrn Presumptive negative 12/02/18 02:58 Presumptive negative 12/02/18 02:58 U Marijuana (THC) Screen Presumptive positive 12/02/18 02:58 Disclamer 12/02/18 02:58 Active Medications - Current Medications Current Medications: Generic Name Dose Route Start Last Admin Trade Name Freq PRN Reason Stop Dose Admin Acetaminophen 650 mg 12/02/18 05:03 Tylenol PO Q4H PRN Pain MILD(1-3)/Fever >100.5/TORRES Albuterol/Ipratropium 1 ampul 12/02/18 08:00 12/07/18 07:57 Duoneb *Not For Prn Use* IH 1 ampul Q6HRT DC Administration Lipase/Protease/Amylase 1 each 12/05/18 09:15 Pancreaze 10,500 Unit FEEDTUBE PRN PRN For Clogged Feeding Tube Aspirin 325 mg 12/07/18 10:00 12/07/18 09:46 Aspirin PO 325 mg QDAY DC Administration Atorvastatin Calcium 20 mg 12/06/18 22:00 12/06/18 22:10 Lipitor PO 20 mg QHS DC Administration Cilostazol 100 mg 12/06/18 11:00 12/07/18 09:45 Pletal PO 100 mg BID DC Administration Dextrose 25 ml 12/04/18 19:06 D50w (25gm) Syringe IV PRN PRN Hypoglycemia Famotidine 20 mg 12/06/18 10:00 12/07/18 09:45 Pepcid PO 20 mg BID DC Administration Fentanyl 50 mcg 12/02/18 04:00 12/07/18 02:50 Sublimaze IV 50 mcg Q10MIN PRN Administration ANALGESIA Hydralazine HCl 10 mg 12/06/18 09:44 Apresoline IV Q4HR PRN Blood Pressure Hydrophilic Ointment 1 applic 12/02/18 00:45 Vaseline Lip Therapy TP Q2HR PRN Dry Lips Propofol 1,000 mg in 100 mls @ 2.82 mls/hr 12/02/18 01:00 12/02/18 08:30 Diprivan 10 Mg/Ml IV 0 mcg/kg/min TITR DC 0 mls/hr Titration Protocol 5 MCG/KG/MIN Fentanyl Citrate 2,000 mcg in 100 mls @ 4.7 mls/hr 12/02/18 04:00 12/07/18 06:25 Fentanyl Drip Premix IV 2 mcg/kg/hr TITR DC 9.4 mls/hr Administration Protocol 1 MCG/KG/HR Norepinephrine 4 mg in 250 mls @ 7.5 mls/hr 12/02/18 04:15 12/07/18 04:51 Levophed Drip 4 Mg/Ns 250 Ml IV 2 mcg/min TITR DC 7.5 mls/hr Administration Protocol 2 MCG/MIN Heparin Sodium/Sodium Chloride 25,000 unit in 500 mls @ 20 mls/hr 12/02/18 11:00 12/07/18 00:26 Heparin/ 0.45% Nacl-25,000 Unit/500 Ml IV 1,700 units/hr TITRATE DC 34 mls/hr Titration Protocol 1,000 UNITS/HR Metronidazole 500 mg in 100 mls @ 100 mls/hr 12/03/18 16:00 12/07/18 06:25 Flagyl 500 Mg/100 Ml IV 100 mls/hr Q8HR DC Administration Protocol Cefepime HCl 2 gm in 100 mls @ 200 mls/hr 12/06/18 22:00 12/07/18 06:25 Maxipime/Ns 2 Gm/100 Ml IV 200 mls/hr Q8HR DC Administration Protocol Amiodarone HCl 900 mg/ 500 mls @ 16.667 mls/hr 12/07/18 03:00 12/07/18 03:29 Dextrose IV 0.5 mg/min DIRECT DC 16.667 mls/hr Administration Protocol 0.5 MG/MIN Insulin Human Lispro 0 unit 12/04/18 07:00 12/07/18 07:49 Humalog SUB-Q Not Given Q6HR [facility] Protocol Lorazepam 1 mg 12/06/18 09:26 Ativan IV Q4H PRN Anxiety Metoprolol Tartrate 5 mg 12/07/18 10:00 12/07/18 09:44 Lopressor IV 5 mg Q6H CD Administration Multi-Ingred Cream/Lotion/Oil/Oint 1 applic 12/02/18 00:45 Artificial Tears Ophth Oint OU Q4HR PRN Dry Eye(s) Ondansetron HCl 4 mg 12/02/18 05:03 Zofran IV Q8H PRN Nausea And Vomiting Potassium Chloride 40 meq 12/07/18 10:00 12/07/18 09:45 Potassium Chloride FEEDTUBE 12/07/18 22:01 40 meq BID DC Administration Quetiapine Fumarate 100 mg 12/06/18 22:00 12/06/18 22:10 Seroquel PO 100 mg QHS DC Administration Simple Syrup 15 ml 12/05/18 09:15 Simple Syrup FEEDTUBE PRN PRN Hypoglycemia Simple Syrup 30 ml 12/05/18 09:15 Simple Syrup FEEDTUBE PRN PRN Hypoglycemia Sodium Bicarbonate 325 mg 12/05/18 09:15 Sodium Bicarbonate FEEDTUBE PRN PRN For Clogged Feeding Tube Sodium Chloride 10 ml 12/02/18 10:00 12/07/18 09:47 Sodium Chloride Flush Syringe 10 Ml IV 10 ml BID DC Administration Sodium Chloride 10 ml 12/02/18 05:03 Sodium Chloride Flush Syringe 10 Ml IV PRN PRN LINE FLUSH Nutrition/Malnutrition Assess - Dietary Evaluation Nutrition/Malnutrition Findings: Nutrition Notes Start: 12/02/18 08 :27 Freq: Status: Active Protocol: Document 12/05/18 09:13 MEKHI (Rec: 12/05/18 09:15 [email or web address]) Nutrition Notes Need for Assessment generated from: MD Order Initial or Follow up Brief Note Current Diet NPO Labs/Tests Mg 2.5 Subjective/Other Information RD consulted for TF. Pt remains on vent support. Nutrition Intervention Nutrition Support: Vital HP at 55ml/hr with 50ml water flush q4h. Kcal 1,320 Protein (gm) 116 Carbohydrates (gm) 148 Fat (gm) 31 Fluid (mL) 1,104 Fiber (gm) 0 Goal #1 TF tolerance Goal #2 TF to meet 65-70% energy and 90-100% pro needs Follow-Up By: 12/07/18 Additional Comments F/U: new TF, vent status
[2018-12-07] MEDS ORDERED: KPHOS 30 MMOL in NACL 0.9% 500 ML 500 ML IV ONE (11:00)
[2018-12-07] MEDS ORDERED: MAGNESIUM SULFATE 2GM/50ML 2 GM/50 ML BAG IV ONE (11:00)
--- NOTE | 2018-12-07 12:16 | Progress Note ---
Assessment and Plan Acute respiratory failure Extensive airspace disease on CT - improving Leukocytosis Cardiopulmonary arrest Vfib requiring cardioversion in the ER MPI 09/16/2018 - normal Echo 09/16/2018 - normal LVEF Echo 12/02/2018- LVEF 30-35% Abnormal troponin likely type II WA post Vfib and electrical shock Echo this admission is showing significant deterioration in LVEF from 09/2018 Paroxysmal Atrial fibrillation, new onset Right common femoral vein DVT - new diagnosis this admission on IV heparin Systemic Hypertension Peripheral vascular disease on cilostazol Hyperlipidemia Former smoker (quit in 2011) Morbid obesity Marijuana use Non-compliance with meds Plan: We will transition to oral amiodarone for suppression of paroxysmal Afib. Medical therapy for dilated cardiomyopathy. Coronary angio when extubated and stable of the vent. Subjective Date of service: 12/07/18 Principal diagnosis: Ac hypoxemic resp failure; ARDS; Septic Shock; DVT; Cardiac arrest Interval history: Patient is alert but remains on the vent. Rapid Atrial fibrillation on telemetry overnight. Currently in sinus rhythm. Objective Vital Signs Temp Pulse Pulse Pulse Resp Resp BP 12/07/18 12:01 83 38 H 125/67 12/07/18 12:00 98.6 F 83 38 H 12/07/18 11:58 81 74/56 12/07/18 11:31 85 30 H 109/62 12/07/18 11:00 75 26 H 98/51 12/07/18 10:30 70 31 H 99/59 12/07/18 10:15 72 98/56 12/07/18 10:00 72 24 109/61 12/07/18 09:44 74 106/52 12/07/18 09:31 84 18 106/52 12/07/18 09:00 81 25 H 100/51 12/07/18 08:30 79 24 91/52 12/07/18 08:00 98.7 F 80 80 18 89/52 12/07/18 07:58 84 18 12/07/18 07:53 88 99/54 12/07/18 07:30 87 28 H 99/53 12/07/18 07:00 87 28 H 94/55 12/07/18 06:31 84 25 H 93/47 12/07/18 06:01 168 H 26 H 105/66 12/07/18 05:30 152 H 23 88/54 08/01/19 05:00 151 H 27 H 76/49 12/07/18 04:37 177 H 86/56 12/07/18 04:30 177 H 28 H 86/56 12/07/18 04:01 180 H 23 85/49 12/07/18 04:00 99.5 F 167 H 167 H 15 12/07/18 03:31 178 H 28 H 89/49 12/07/18 03:28 190 H 97/54 12/07/18 03:15 178 H 88/55 12/07/18 03:00 200 H 32 H 97/54 12/07/18 02:30 128 H 25 H 124/76 12/07/18 02:05 101 H 32 H 12/07/18 02:00 128 H 29 H 114/79 12/07/18 01:31 114 H 30 H 116/53 12/07/18 01:00 119 H 28 H 97/57 12/07/18 00:30 111 H 21 106/57 12/07/18 00:00 115 H 90 20 100/62 12/06/18 23:44 98.9 F 12/06/18 23:32 90 109/60 12/06/18 23:30 95 H 15 109/60 12/06/18 23:00 115 H 22 108/46 12/06/18 22:31 94 H 25 H 108/50 12/06/18 22:30 105 H 23 139/79 12/06/18 22:00 97 H 31 H 129/74 12/06/18 21:30 83 30 H 129/74 12/06/18 21:00 105 H 27 H 138/83 12/06/18 20:30 102 H 16 137/110 12/06/18 20:00 99.0 F 100 H 110 H 30 H 144/75 12/06/18 19:58 92 H 31 H 12/06/18 19:30 91 H 21 127/65 12/06/18 19:25 91 H 12/06/18 19:00 93 H 17 127/65 12/06/18 18:30 79 18 127/65 12/06/18 18:00 77 24 132/64 12/06/18 17:30 90 15 125/69 12/06/18 17:00 90 17 128/69 12/06/18 16:30 97 H 22 123/69 12/06/18 16:13 97 H 127/68 12/06/18 16:00 99.4 F 96 H 96 H 15 127/68 12/06/18 15:30 99 H 108 H 27 H 29 H 144/75 12/06/18 15:00 102 H 19 146/78 12/06/18 14:30 105 H 15 163/97 12/06/18 14:00 105 H 29 H 173/99 12/06/18 13:30 105 H 13 163/97 12/06/18 13:00 96 H 25 H 161/85 12/06/18 12:48 96 H 162/90 12/06/18 12:30 103 H 20 151/116 Pulse Ox 12/07/18 12:01 95 12/07/18 12:00 95 12/07/18 11:58 95 12/07/18 11:31 96 12/07/18 11:00 97 12/07/18 10:30 97 12/07/18 10:15 97 12/07/18 10:00 97 12/07/18 09:44 12/07/18 09:31 93 12/07/18 09:00 96 12/07/18 08:30 96 12/07/18 08:00 95 12/07/18 07:58 12/07/18 07:53 96 12/07/18 07:30 95 12/07/18 07:00 96 12/07/18 06:31 96 12/07/18 06:01 95 12/07/18 05:30 96 12/07/18 05:00 12/07/18 04:37 12/07/18 04:30 95 12/07/18 04:01 96 12/07/18 04:00 94 12/07/18 03:31 93 12/07/18 03:28 12/07/18 03:15 92 12/07/18 03:00 93 12/07/18 02:30 86 12/07/18 02:05 12/07/18 02:00 88 12/07/18 01:31 91 12/07/18 01:00 92 12/07/18 00:30 95 12/07/18 00:00 95 12/06/18 23:44 12/06/18 23:32 94 12/06/18 23:30 93 12/06/18 23:00 98 12/06/18 22:31 93 12/06/18 22:30 12/06/18 22:00 12/06/18 21:30 94 12/06/18 21:00 90 12/06/18 20:30 95 12/06/18 20:00 94 12/06/18 19:58 12/06/18 19:30 93 12/06/18 19:25 96 12/06/18 19:00 92 12/06/18 18:30 94 12/06/18 18:00 93 12/06/18 17:30 93 12/06/18 17:00 93 12/06/18 16:30 91 12/06/18 16:13 96 12/06/18 16:00 94 12/06/18 15:30 95 12/06/18 15:00 93 12/06/18 14:30 96 12/06/18 14:00 94 12/06/18 13:30 95 12/06/18 13:00 98 12/06/18 12:48 12/06/18 12:30 98 - Physical Examination General: Other (intubated on the vent) HEENT: Positive: PERRL Cardiac: Positive: Reg Rate and Rhythm Neuro: Positive: Grossly Intact Extremities: Absent: edema - Labs and Meds CBC 12/07/18 Range/Units 04:45 WBC 16.6 H (4.5-11.0) K/mm3 RBC 3.56 L (3.65-5.03) M/mm3 Hgb 9.7 L (10.1-14.3) gm/dl Hct 29.4 L (30.3-42.9) % Plt Count 240 (140-440) K/mm3 Comprehensive Metabolic Panel 12/07/18 Range/Units 04:45 Sodium 145 (137-145) mmol/L Potassium 3.2 L (3.6-5.0) mmol/L Chloride 107.6 H (98-107) mmol/L Carbon Dioxide 28 (22-30) mmol/L BUN 20 H (7-17) mg/dL Creatinine 0.7 (0.7-1.2) mg/dL Glucose 138 H (65-100) mg/dL Calcium 8.0 L (8.4-10.2) mg/dL - Allied health notes Allied health notes reviewed: RT
[2018-12-07] MEDS: LOVENOX SUB-Q SCH ×2 (12:45→21:08)
--- NOTE | 2018-12-07 13:02 | Progress Note ---
Assessment and Plan Cultures: 12/02/2018 sputum culture: Usual respiratory nolan 12/02/2018 urine culture: No growth 12/02/2018 blood culture: No growth A/P: 53-year-old female with hypertension, hyperlipidemia, peripheral vascular disease presented to the emergency room on 12/02/2018 with complaints of chest pain, developed V.fib arrest, now with: 1) Shock, multifactorial: Cardiogenic versus septic. Patient with V. fib arrest. Developed bilateral aspiration pneumonia vs pneumonitis. Now alert, oriented 2) Bilateral airspace disease with concern for pneumonia with acute respiratory failure: CXR and CT chest showed bilateral airspace disease. Noted to have gastric content aspiration on admission. Empirically treat with IV cefepime and Flagyl. Cultures negative. Improved CXR and WBC with increased dose of cefepime. Continue. 3) Mixed acidosis: on admission. Lactate remains elevated. 4) V.fib arrest: cardiology following. EF 30-35%. Recs: Follow-up cultures. Empiric IV cefepime and Flagyl Increase cefepime to 2g q8h Expected duration of 8 days Thank you for involving us in the care of Ms. Tarango. We will continue to follow with you. Luis Earl MD [facility] ([facility] C: [phone] O: [phone] F: [phone] Subjective Date of service: 12/07/18 Principal diagnosis: Ac hypoxemic resp failure; ARDS; Septic Shock; DVT; Cardiac arrest Interval history: Remains intubated but alert and oriented. Main complaint is being intubated and RLE edema which has been present for the past 6 days. White count improving. Objective - Exam Narrative Exam: Constitutional: awake, no distress, following commands Head, Ears, Nose: Normocephalic, atraumatic. External ears, nose normal Eyes: Conjunctivae/corneas clear. No icterus. No ptosis. Neck: Supple, no meningeal signs Oral: Intubated Cardiovascular: S1, S2 normal. Normal rhythm Respiratory: Good air entry, clear to auscultation bilaterally GI: Soft, non-tender; bowel sounds normal. No peritoneal signs Musculoskeletal: RLE edema 2+ Skin: No rash or abscess Hem/Lymphatic: No palpable cervical or supraclavicular nodes. No lymphangitis Psych: no agitation Neurological: Moves all extremities, no focal defects - Constitutional Vitals: Vital Signs Temp Pulse Resp BP Pulse Ox 98.6 F 83 38 H 125/67 95 12/07/18 12:00 12/07/18 12:01 12/07/18 12:01 12/07/18 12:01 12/07/18 12:01 Temperature -Last 24 Hours Temperature 98.6 F Temperature 98.7 F Temperature 99.5 F Temperature 99.5 F Temperature 98.9 F Temperature 99.0 F Temperature 99.4 F - Labs CBC & Chem 7: 12/07/18 04:45 12/07/18 04:45 Labs: Abnormal lab results 12/06/18 12/06/18 12/06/18 Range/Units 14:15 18:34 23:00 WBC (4.5-11.0) K/mm3 RBC (3.65-5.03) M/mm3 Hgb (10.1-14.3) gm/dl Hct (30.3-42.9) % MCH (28-32) pg RDW (13.2-15.2) % Seg Neuts % (Manual) (40.0-70.0) % Lymphocytes % (Manual) (13.4-35.0) % Seg Neutrophils # Man (1.8-7.7) K/mm3 Heparin Anti-Xa Level 1.22 H 0.15 L (0.3-0.7) U.I./ml POC ABG pO2 (80-105) Potassium (3.6-5.0) mmol/L Chloride (98-107) mmol/L BUN (7-17) mg/dL Glucose (65-100) mg/dL POC Glucose 110 H (70-105) Calcium (8.4-10.2) mg/dL Phosphorus (2.5-4.5) mg/dL 12/06/18 12/07/18 12/07/18 Range/Units 23:11 03:23 04:45 WBC 16.6 H (4.5-11.0) K/mm3 RBC 3.56 L (3.65-5.03) M/mm3 Hgb 9.7 L (10.1-14.3) gm/dl Hct 29.4 L (30.3-42.9) % MCH 27 L (28-32) pg RDW 15.9 H (13.2-15.2) % Seg Neuts % (Manual) 86.0 H (40.0-70.0) % Lymphocytes % (Manual) 12.0 L (13.4-35.0) % Seg Neutrophils # Man 14.3 H (1.8-7.7) K/mm3 Heparin Anti-Xa Level (0.3-0.7) U.I./ml POC ABG pO2 60 L (80-105) Potassium (3.6-5.0) mmol/L Chloride (98-107) mmol/L BUN (7-17) mg/dL Glucose (65-100) mg/dL POC Glucose 138 H (70-105) Calcium (8.4-10.2) mg/dL Phosphorus (2.5-4.5) mg/dL 12/07/18 12/07/18 12/07/18 Range/Units 04:45 05:47 06:45 WBC (4.5-11.0) K/mm3 RBC (3.65-5.03) M/mm3 Hgb (10.1-14.3) gm/dl Hct (30.3-42.9) % MCH (28-32) pg RDW (13.2-15.2) % Seg Neuts % (Manual) (40.0-70.0) % Lymphocytes % (Manual) (13.4-35.0) % Seg Neutrophils # Man (1.8-7.7) K/mm3 Heparin Anti-Xa Level < 0.10 L (0.3-0.7) U.I./ml POC ABG pO2 (80-105) Potassium 3.2 L (3.6-5.0) mmol/L Chloride 107.6 H (98-107) mmol/L BUN 20 H (7-17) mg/dL Glucose 138 H (65-100) mg/dL POC Glucose 160 H (70-105) Calcium 8.0 L (8.4-10.2) mg/dL Phosphorus (2.5-4.5) mg/dL 12/07/18 12/07/18 Range/Units 09:14 12:46 WBC (4.5-11.0) K/mm3 RBC (3.65-5.03) M/mm3 Hgb (10.1-14.3) gm/dl Hct (30.3-42.9) % MCH (28-32) pg RDW (13.2-15.2) % Seg Neuts % (Manual) (40.0-70.0) % Lymphocytes % (Manual) (13.4-35.0) % Seg Neutrophils # Man (1.8-7.7) K/mm3 Heparin Anti-Xa Level (0.3-0.7) U.I./ml POC ABG pO2 (80-105) Potassium (3.6-5.0) mmol/L Chloride (98-107) mmol/L BUN (7-17) mg/dL Glucose (65-100) mg/dL POC Glucose 129 H (70-105) Calcium (8.4-10.2) mg/dL Phosphorus 1.80 L (2.5-4.5) mg/dL
[2018-12-07] MEDS: LASIX PO SCH (14:06)
[2018-12-08] MEDS: DUONEB *Not for PRN Use IH SCH ×4 (02:08→19:39)
--- NOTE | 2018-12-08 02:25 | XRay Report ---
CHEST 1 VIEW INDICATION / CLINICAL INFORMATION: follow up respiratory failure. COMPARISON: 12/07/2018 at 0221 hours FINDINGS: SUPPORT DEVICES: Endotracheal tube, nasogastric tube HEART / MEDIASTINUM: No significant abnormality. LUNGS / PLEURA: Bilateral airspace disease has improved slightly since yesterday. No other interval c hange No pneumothorax. ADDITIONAL FINDINGS: No significant additional findings. IMPRESSION: Bilateral airspace disease has improved slightly since yesterday Signer Name: Eriberto Dela Cruz MD FACR Signed: 12/08/2018 2:21 AM Workstation Name: [id number]
[2018-12-08 06:34] LABS: Hematocrit 28.8 % (30.3-42.9); Hemoglobin 9.4 gm/dl (10.1-14.3); Mean Corpuscular HGB Conc 33 % (30-34); Mean Corpuscular Volume 82 fl (79-97); Platelet Count 280 K/mm3 (140-440); Red Cell Distribution Width 16.3 % (13.2-15.2)
[2018-12-08] MEDS: MAXIPIME/NS 2 GM/100 ML 2 GM/100 ML BAG IV SCH ×3 (06:57→22:50)
[2018-12-08] MEDS: FLAGYL 500 MG/100 ML 500 MG/100 ML BAG IV SCH ×3 (06:57→22:50)
[2018-12-08 06:58] LABS: BUN/Creatinine Ratio 38; Blood Urea Nitrogen 23 mg/dL (7-17); Calcium 8.1 mg/dL (8.4-10.2); Hemolysis Index 2
[2018-12-08] MEDS: HumaLOG SUB-Q SCH ×3 (06:58→19:22)
[2018-12-08] MEDS: LOPRESSOR IV SCH ×4 (07:01→22:55)
[2018-12-08 07:22] LABS: Basophils % (Manual) 0 % (0.0-1.8); Total Cells Counted 100
[2018-12-08 07:23] LABS: Anisocytosis Few; Platelet Estimate Consistent w Auto; Poikilocytosis Rare
[2018-12-08] MEDS: SODIUM CHLORIDE FLUSH SYRINGE 10 ML IV SCH ×2 (07:36→10:00)
[2018-12-08] MEDS: CORDARONE 900 MG in D5W 482 ML IV SCH (09:15)
[2018-12-08] MEDS: CORDARONE PO SCH (09:58)
[2018-12-08] MEDS: ASPIRIN PO SCH (09:58)
[2018-12-08] MEDS: LASIX PO SCH (09:58)
[2018-12-08] MEDS: PEPCID PO SCH ×2 (09:59→22:52)
[2018-12-08] MEDS: LOVENOX SUB-Q SCH ×2 (09:59→22:51)
[2018-12-08] MEDS: PLETAL PO SCH ×2 (10:00→22:52)
[2018-12-08] MEDS: POTASSIUM CHLORIDE FEEDTUBE SCH ×2 (10:00→22:51)
--- NOTE | 2018-12-08 10:19 | Progress Note ---
Assessment and Plan Acute respiratory failure Extensive airspace disease on CT Leukocytosis Cardiopulmonary arrest Vfib requiring cardioversion in the ER MPI 09/16/2018 - normal Echo 09/16/2018 - normal LVEF Echo 12/02/2018- LVEF 30-35% Abnormal troponin likely type II MT post Vfib and electrical shock Echo this admission is showing significant deterioration in LVEF from 09/2018 Paroxysmal Atrial fibrillation, new onset currently in sinus rhythm Right common femoral vein DVT - new diagnosis this admission on lovenox Systemic Hypertension Peripheral vascular disease on cilostazol Hyperlipidemia Former smoker (quit in 2011) Morbid obesity Marijuana use Non-compliance with meds Plan: Continue amiodarone and metoprolol for suppression of paroxysmal Afib. Medical therapy for dilated cardiomyopathy as tolerated. Ultimately, left heart catheterization once patient is stable off the vent. Subjective Date of service: 12/08/18 Principal diagnosis: Ac hypoxemic resp failure; ARDS; Septic Shock; DVT; Cardiac arrest Interval history: Patient is alert but remains on the vent. Remains on pressors for support. Objective Vital Signs Temp Pulse Pulse Pulse Resp Resp BP 12/08/18 09:58 86 114/69 12/08/18 09:31 86 29 H 122/69 12/08/18 09:00 78 22 108/70 12/08/18 08:30 81 22 115/73 12/08/18 08:28 82 116/57 12/08/18 08:27 86 18 12/08/18 08:01 81 28 H 119/65 12/08/18 08:00 76 81 28 H 12/08/18 07:59 98.7 F 12/08/18 07:31 81 25 H 112/65 12/08/18 07:01 100 H 121/67 12/08/18 07:00 100 H 29 H 121/67 12/08/18 06:31 92 H 21 109/50 12/08/18 06:01 80 18 12/08/18 05:30 84 17 93/52 12/08/18 05:01 93 H 16 109/50 12/08/18 04:31 78 26 H 119/56 12/08/18 04:01 81 29 H 117/55 12/08/18 04:00 99 F 79 81 23 12/08/18 03:40 78 113/53 12/08/18 03:30 79 23 113/40 12/08/18 03:17 99 F 08/02/19 03:01 79 26 H 111/55 12/08/18 02:31 83 28 H 108/52 12/08/18 02:00 84 22 110/59 12/08/18 01:30 83 20 97/46 12/08/18 01:01 82 23 96/48 12/08/18 00:31 80 16 105/51 12/08/18 00:01 78 22 107/49 12/08/18 00:00 89 79 17 12/07/18 23:31 65 16 107/49 12/07/18 23:20 83 12/07/18 23:11 98.1 F 12/07/18 23:01 78 29 H 107/49 12/07/18 22:47 92 H 106/64 12/07/18 22:30 89 28 H 106/64 12/07/18 22:00 89 31 H 105/57 12/07/18 21:31 84 29 H 112/50 12/07/18 21:01 88 22 117/62 12/07/18 20:31 85 25 H 102/46 12/07/18 20:05 89 31 H 113/55 12/07/18 20:03 94 H 25 H 12/07/18 20:01 88 29 H 113/55 12/07/18 20:00 100.0 F H 89 89 18 12/07/18 19:41 100.0 F H 12/07/18 19:31 88 32 H 120/50 12/07/18 19:15 87 12/07/18 19:00 82 24 122/57 12/07/18 18:30 79 15 107/53 12/07/18 18:01 79 22 106/51 12/07/18 17:30 80 22 97/57 12/07/18 17:00 78 18 98/53 12/07/18 16:30 83 22 110/63 12/07/18 16:19 118 H 126/70 12/07/18 16:00 97.6 F 104 H 104 H 23 122/67 12/07/18 15:30 112 H 25 H 136/78 12/07/18 15:00 93 H 32 H 124/62 12/07/18 14:31 97 H 42 H 129/75 12/07/18 14:00 84 101 H 20 23 125/65 12/07/18 13:30 85 26 H 106/55 12/07/18 13:00 86 38 H 115/57 12/07/18 12:30 89 27 H 128/62 12/07/18 12:01 83 38 H 125/67 12/07/18 12:00 98.6 F 94 H 83 38 H 12/07/18 11:58 81 74/56 12/07/18 11:31 85 30 H 109/62 12/07/18 11:00 75 26 H 98/51 12/07/18 10:30 70 31 H 99/59 Pulse Ox 12/08/18 09:58 12/08/18 09:31 99 12/08/18 09:00 99 12/08/18 08:30 98 12/08/18 08:28 98 12/08/18 08:27 12/08/18 08:01 98 12/08/18 08:00 98 12/08/18 07:59 12/08/18 07:31 97 12/08/18 07:01 12/08/18 07:00 95 12/08/18 06:31 93 12/08/18 06:01 96 12/08/18 05:30 97 12/08/18 05:01 96 12/08/18 04:31 93 12/08/18 04:01 95 12/08/18 04:00 95 12/08/18 03:40 96 12/08/18 03:30 97 12/08/18 03:17 12/08/18 03:01 92 12/08/18 02:31 92 12/08/18 02:00 92 12/08/18 01:30 92 12/08/18 01:01 91 12/08/18 00:31 93 12/08/18 00:01 94 12/08/18 00:00 95 12/07/18 23:31 97 12/07/18 23:20 96 12/07/18 23:11 12/07/18 23:01 94 12/07/18 22:47 12/07/18 22:30 95 12/07/18 22:00 94 12/07/18 21:31 93 12/07/18 21:01 94 12/07/18 20:31 93 12/07/18 20:05 95 12/07/18 20:03 12/07/18 20:01 93 12/07/18 20:00 95 12/07/18 19:41 12/07/18 19:31 92 12/07/18 19:15 96 12/07/18 19:00 93 12/07/18 18:30 93 12/07/18 18:01 93 12/07/18 17:30 92 12/07/18 17:00 92 12/07/18 16:30 94 12/07/18 16:19 12/07/18 16:00 95 12/07/18 15:30 92 12/07/18 15:00 95 12/07/18 14:31 94 12/07/18 14:00 95 12/07/18 13:30 95 12/07/18 13:00 94 12/07/18 12:30 93 12/07/18 12:01 95 12/07/18 12:00 95 12/07/18 11:58 95 12/07/18 11:31 96 12/07/18 11:00 97 12/07/18 10:30 97 - Physical Examination General: Other (intubated on the vent) HEENT: Positive: PERRL Cardiac: Positive: Reg Rate and Rhythm Neuro: Positive: Grossly Intact Extremities: Present: +1 Edema - Labs and Meds CBC 12/08/18 Range/Units 06:10 WBC 22.7 H (4.5-11.0) K/mm3 RBC 3.50 L (3.65-5.03) M/mm3 Hgb 9.4 L (10.1-14.3) gm/dl Hct 28.8 L (30.3-42.9) % Plt Count 280 (140-440) K/mm3 Comprehensive Metabolic Panel 12/08/18 Range/Units 06:10 Sodium 145 (137-145) mmol/L Potassium 3.5 L (3.6-5.0) mmol/L Chloride 108.8 H (98-107) mmol/L Carbon Dioxide 27 (22-30) mmol/L BUN 23 H (7-17) mg/dL Creatinine 0.6 L (0.7-1.2) mg/dL Glucose 140 H (65-100) mg/dL Calcium 8.1 L (8.4-10.2) mg/dL - Allied health notes Allied health notes reviewed: RT
--- NOTE | 2018-12-08 10:57 | Progress Note ---
Assessment and Plan Cultures: 12/02/2018 sputum culture: Usual respiratory nolan 12/02/2018 urine culture: No growth 12/02/2018 blood culture: No growth A/P: 53-year-old female with hypertension, hyperlipidemia, peripheral vascular disease presented to the emergency room on 12/02/2018 with complaints of chest pain, developed V.fib arrest, now with: 1) Shock, multifactorial: Cardiogenic versus septic. Patient with V. fib arrest. Developed bilateral aspiration pneumonia vs pneumonitis. Now alert, oriented 2) Bilateral airspace disease with concern for pneumonia with acute respiratory failure: CXR and CT chest showed bilateral airspace disease. Noted to have gastric content aspiration on admission. Empirically treat with IV cefepime and Flagyl. Cultures negative. Improved CXR and WBC with increased dose of cefepime. Continue. 3) Mixed acidosis: on admission. Lactate remains elevated. 4) V.fib arrest: cardiology following. EF 30-35%. Recs: Follow-up cultures. Empiric IV cefepime and Flagyl Thank you for involving us in the care of Ms. Tarango. We will continue to follow with you. Luis Earl MD [facility] ([facility]) C: [phone] O: [phone] F: [phone] Subjective Date of service: 12/08/18 Principal diagnosis: Ac hypoxemic resp failure; ARDS; Septic Shock; DVT; Cardiac arrest Interval history: Remains intubated but alert and oriented. Main complaint is being intubated and RLE edema which has been present for the past 6 days. White count improving. Objective - Exam Narrative Exam: Constitutional: awake, no distress, following commands Head, Ears, Nose: Normocephalic, atraumatic. External ears, nose normal Eyes: Conjunctivae/corneas clear. No icterus. No ptosis. Neck: Supple, no meningeal signs Oral: Intubated Cardiovascular: S1, S2 normal. Normal rhythm Respiratory: Good air entry, clear to auscultation bilaterally GI: Soft, non-tender; bowel sounds normal. No peritoneal signs Musculoskeletal: RLE edema 2+ Skin: No rash or abscess Hem/Lymphatic: No palpable cervical or supraclavicular nodes. No lymphangitis Psych: no agitation Neurological: Moves all extremities, no focal defects - Constitutional Vitals: Vital Signs Temp Pulse Resp BP Pulse Ox 98.7 F 83 20 108/66 98 12/08/18 07:59 12/08/18 10:01 12/08/18 10:01 12/08/18 10:01 12/08/18 10:01 Temperature -Last 24 Hours Temperature 98.7 F Temperature 99 F Temperature 99 F Temperature 98.1 F Temperature 100.0 F Temperature 100.0 F Temperature 97.6 F Temperature 98.6 F - Labs CBC & Chem 7: 12/08/18 06:10 12/08/18 06:10 Labs: Abnormal lab results 12/07/18 12/07/18 12/07/18 Range/Units 12:46 17:33 23:42 WBC (4.5-11.0) K/mm3 RBC (3.65-5.03) M/mm3 Hgb (10.1-14.3) gm/dl Hct (30.3-42.9) % MCH (28-32) pg RDW (13.2-15.2) % Eosinophils % (Manual) (0.0-4.3) % Seg Neutrophils # Man (1.8-7.7) K/mm3 Lymphocytes # (Manual) (1.2-5.4) K/mm3 Eosinophils # (Manual) (0.0-0.4) K/mm3 Potassium (3.6-5.0) mmol/L Chloride (98-107) mmol/L BUN (7-17) mg/dL Creatinine (0.7-1.2) mg/dL Glucose (65-100) mg/dL POC Glucose 129 H 131 H 141 H (70-105) Calcium (8.4-10.2) mg/dL 12/08/18 12/08/18 12/08/18 Range/Units 05:09 06:10 06:10 WBC 22.7 H (4.5-11.0) K/mm3 RBC 3.50 L (3.65-5.03) M/mm3 Hgb 9.4 L (10.1-14.3) gm/dl Hct 28.8 L (30.3-42.9) % MCH 27 L (28-32) pg RDW 16.3 H (13.2-15.2) % Eosinophils % (Manual) 10.0 H (0.0-4.3) % Seg Neutrophils # Man 14.1 H (1.8-7.7) K/mm3 Lymphocytes # (Manual) 6.1 H (1.2-5.4) K/mm3 Eosinophils # (Manual) 2.3 H (0.0-0.4) K/mm3 Potassium 3.5 L (3.6-5.0) mmol/L Chloride 108.8 H (98-107) mmol/L BUN 23 H (7-17) mg/dL Creatinine 0.6 L (0.7-1.2) mg/dL Glucose 140 H (65-100) mg/dL POC Glucose 151 H (70-105) Calcium 8.1 L (8.4-10.2) mg/dL
--- NOTE | 2018-12-08 12:20 | Progress Note ---
Assessment and Plan Assessment and plan: Septic shock -Probably secondary to bilateral pneumonia, ? aspiration -Continue cefepime and metronidazole -On IV pressor, to be tapered off today if pt tolerates -WBC level trended up today, will cont to monitor -Blood and sputum cultures negative -ID following Acute hypoxemic respiratory failure -Status post intubation on mechanical ventilator -Off IV sedation -Pulmonology following S/p V. fib arrest, requiring cardioversion in the emergency room. MPI 09/16/2018 - normal Echo 09/16/2018 - normal LVEF -Cardiology considering further eval with coronary angio when pt is off MV Shock -septic versus cardiogenic -On IV pressor New onset systolic heart failure with EF of 30-35% -No acute exacerbation -On BB and oral Lasix. Not on ACEI due to labile BP Elevated troponin. -Etiology likely secondary to V. fib arrest/electrical shock. -Cont IV heparin drip, BB, statin and asa New onset atrial fibrillation. -Oral amiodarone started, IV amiodarone to be tapered off today. Also on IV Lopressor -Rate improving, will monitor -Cont IV heparin drip Acute right common femoral vein DVT -Continue IV heparin Hypokalemia -On repletion, will monitor level Hypomagnesemia -Improved s/p repletion H/o hypertension. -Blood pressure improving on IV pressor -home antihypertensives on hold Hyperglycemia -No prior history of diabetes mellitus -Hemoglobin A1c: 5.6 Hyperlipidemia. -Continue statin. Peripheral vascular disease -Cont cilostazol Normocytic anemia, likely chronic -H&H stable, will monitor Marijuana use -Cessation recommended Medication non-compliance -Patient counseled Obesity with BMI of 33.4 -Lifestyle modification recommended Nutrition: on tube feeding Disposition: Continue treatment in the ICU, pt is still on MV. Time spent: 38 minutes History Interval history: Patient is off IV sedation today and awake. She reports feeling a little better. She denies chest pain or shortness of breath. No overnight issues reported. Hospitalist Physical - Constitutional Vitals: Temp Pulse Resp BP Pulse Ox 98.7 F 83 20 108/66 98 12/08/18 07:59 12/08/18 10:01 12/08/18 10:01 12/08/18 10:01 12/08/18 10:01 General appearance: Present: no acute distress, other (intubated but awake) - EENT Eyes: Present: PERRL, EOM intact ENT: hearing intact, other (pt is intubated) - Neck Neck: Present: supple - Respiratory Respiratory effort: normal Respiratory: right: rales, left: diminished - Cardiovascular Rhythm: regular Heart Sounds: Present: S1 & S2 - Extremities Extremity abnormal: edema (RT LE) - Abdominal General gastrointestinal: soft, non-tender, normal bowel sounds - Integumentary Integumentary: Present: clear, warm, dry - Neurologic Neurologic: moves all extremities Results - Labs CBC & Chem 7: 12/08/18 06:10 12/08/18 06:10 Labs: Laboratory Last Values WBC 22.7 K/mm3 (4.5-11.0) H 12/08/18 06:10 RBC 3.50 M/mm3 (3.65-5.03) L 12/08/18 06:10 Hgb 9.4 gm/dl (10.1-14.3) L 12/08/18 06:10 Hct 28.8 % (30.3-42.9) L 12/08/18 06:10 MCV 82 fl (79-97) 12/08/18 06:10 MCH 27 pg (28-32) L 12/08/18 06:10 MCHC 33 % (30-34) 12/08/18 06:10 RDW 16.3 % (13.2-15.2) H 12/08/18 06:10 Plt Count 280 K/mm3 (140-440) 12/08/18 06:10 Lymph % (Auto) Land [employer] 12/02/18 00:30 [place] % (Auto) 1.3 % (0.0-7.3) 12/03/18 04:07 Eos % (Auto) 0.0 % (0.0-4.3) 12/03/18 04:07 Baso % (Auto) Land [employer] 12/02/18 00:30 Lymph # [employer] 12/02/18 00:30 [place] # 0.3 K/mm3 (0.0-0.8) 12/03/18 04:07 Eos # 0.0 K/mm3 (0.0-0.4) 12/03/18 04:07 Baso # 0.0 K/mm3 (0.0-0.1) 12/03/18 04:07 Add Manual Diff Complete 12/08/18 06:10 Total Counted 100 12/08/18 06:10 Seg Neutrophils % Land [employer] 12/02/18 00:30 Seg Neuts % (Manual) 62.0 % (40.0-70.0) 12/08/18 06:10 0 % 12/08/18 06:10 27.0 % (13.4-35.0) 12/08/18 06:10 Reactive Lymphs % (Man) 0 % 12/08/18 06:10 1.0 % (0.0-7.3) 12/08/18 06:10 10.0 % (0.0-4.3) H 12/08/18 06:10 0 % (0.0-1.8) 12/08/18 06:10 0 % 12/08/18 06:10 0 % 12/08/18 06:10 0 % 12/08/18 06:10 0 % 12/08/18 06:10 Nucleated RBC % Not Reportable 12/08/18 06:10 Seg Neutrophils # 24.3 K/mm3 (1.8-7.7) H 12/03/18 04:07 Seg Neutrophils # Man 14.1 K/mm3 (1.8-7.7) H 12/08/18 06:10 Band Neutrophils # 0.0 K/mm3 12/08/18 06:10 6.1 K/mm3 (1.2-5.4) H 12/08/18 06:10 Abs React Lymphs (Man) 0.0 K/mm3 12/08/18 06:10 0.2 K/mm3 (0.0-0.8) 12/08/18 06:10 2.3 K/mm3 (0.0-0.4) H 12/08/18 06:10 0.0 K/mm3 (0.0-0.1) 12/08/18 06:10 0.0 K/mm3 12/08/18 06:10 0.0 K/mm3 12/08/18 06:10 0.0 K/mm3 12/08/18 06:10 Blast Cells # 0.0 K/mm3 12/08/18 06:10 WBC Morphology Not Reportable 12/08/18 06:10 Hypersegmented Neuts Not Reportable 12/08/18 06:10 Hyposegmented Neuts Not Reportable 12/08/18 06:10 Hypogranular Neuts Not Reportable 12/08/18 06:10 Not Reportable 12/08/18 06:10 Not Reportable 12/08/18 06:10 Not Reportable 12/08/18 06:10 Not Reportable 12/08/18 06:10 Not Reportable 12/08/18 06:10 Not Reportable 12/08/18 06:10 Consistent w auto 12/08/18 06:10 Not Reportable 12/08/18 06:10 Plt Clumps, EDTA Not Reportable 12/08/18 06:10 Not Reportable 12/08/18 06:10 Not Reportable 12/08/18 06:10 Not Reportable 12/08/18 06:10 Plt Morphology Comment Not Reportable 12/08/18 06:10 RBC Morphology Not Reportable 12/08/18 06:10 Dimorphic RBCs Not Reportable 12/08/18 06:10 Not Reportable 12/08/18 06:10 Not Reportable 12/08/18 06:10 Rare 12/08/18 06:10 Few 12/08/18 06:10 Not Reportable 12/08/18 06:10 Not Reportable 12/08/18 06:10 Not Reportable 12/08/18 06:10 Not Reportable 12/08/18 06:10 Not Reportable 12/08/18 06:10 Not Reportable 12/08/18 06:10 Not Reportable 12/08/18 06:10 Not Reportable 12/08/18 06:10 Not Reportable 12/08/18 06:10 Not Reportable 12/08/18 06:10 Not Reportable 12/08/18 06:10 Not Reportable 12/08/18 06:10 Not Reportable 12/08/18 06:10 Not Reportable 12/08/18 06:10 Not Reportable 12/08/18 06:10 Acanthocytes (Spur) Not Reportable 12/08/18 06:10 Rouleaux Not Reportable 12/08/18 06:10 Not Reportable 12/08/18 06:10 Not Reportable 12/08/18 06:10 Not Reportable 12/08/18 06:10 Not Reportable 12/08/18 06:10 Hem Pathologist Commnt No 12/08/18 06:10 PT 14.4 Sec. (12.2-14.9) 12/02/18 10:50 INR 1.15 (0.87-1.13) H 12/02/18 10:50 APTT 26.5 Sec. (24.2-36.6) 12/02/18 10:50 1085.94 ng/mlDDU (0-234) H 12/02/18 00:30 Heparin Anti-Xa Level < 0.10 U.I./ml (0.3-0.7) L 12/07/18 06:45 POC ABG pH 7.437 (7.35-7.45) 12/07/18 03:23 POC ABG pCO2 35.1 (35-45) 12/07/18 03:23 POC ABG pO2 60 (80-105) L 12/07/18 03:23 POC ABG HCO3 23.7 (22-26 mml/L) 12/07/18 03:23 POC ABG Total CO2 25 (23-27mmol/L) 12/07/18 03:23 POC ABG O2 Sat 92 12/07/18 03:23 POC ABG Base Excess -1 ((-2) - (+3)mmol/L) 12/07/18 03:23 50 % 12/07/18 03:23 Sodium 145 mmol/L (137-145) 12/08/18 06:10 Potassium 3.5 mmol/L (3.6-5.0) L 12/08/18 06:10 Chloride 108.8 mmol/L (98-107) H 12/08/18 06:10 Carbon Dioxide 27 mmol/L (22-30) 12/08/18 06:10 13 mmol/L 12/08/18 06:10 BUN 23 mg/dL (7-17) H 12/08/18 06:10 0.6 mg/dL (0.7-1.2) L 12/08/18 06:10 Estimated GFR > 60 ml/min 12/08/18 06:10 38 % 12/08/18 06:10 Glucose 140 mg/dL (65-100) H 12/08/18 06:10 POC Glucose 119 (70-105) H 12/08/18 12:03 5.6 % (4-6) 12/04/18 08:03 Lactic Acid 1.60 mmol/L (0.7-2.0) 12/05/18 05:22 Calcium 8.1 mg/dL (8.4-10.2) L 12/08/18 06:10 Phosphorus 1.80 mg/dL (2.5-4.5) L 12/07/18 09:14 Magnesium 2.00 mg/dL (1.7-2.3) 12/08/18 06:10 0.30 mg/dL (0.1-1.2) 12/06/18 04:36 AST 41 units/L (5-40) H 12/06/18 04:36 ALT 54 units/L (7-56) 12/06/18 04:36 128 units/L (35-129) 12/06/18 04:36 1322 units/L (30-135) H 12/02/18 10:50 CK-MB (CK-2) 216.7 ng/mL (0.0-4.0) H 12/02/18 10:50 CK-MB (CK-2) Rel Index 16.3 (0-4) H 12/02/18 10:50 0.871 ng/mL (0.00-0.029) H* D 12/02/18 10:50 32.60 mg/dL (0.00-1.30) H 12/04/18 05:23 6.3 g/dL (6.3-8.2) 12/06/18 04:36 2.3 g/dL (3.9-5) L 12/06/18 04:36 0.6 % 12/06/18 04:36 Triglycerides 358 mg/dL (2-149) H 12/02/18 03:14 Cholesterol 111 mg/dL (50-199) 12/02/18 03:14 42 mg/dL (50-130) L 12/02/18 03:14 29 mg/dL (40-59) L 12/02/18 03:14 3.82 % 12/02/18 03:14 TSH 1.820 mlU/mL (0.270-4.200) 12/07/18 11:24 Free T4 0.96 ng/dL (0.76-1.46) 12/07/18 11:24 Colorless (Yellow) 12/02/18 02:58 Clear (Clear) 12/02/18 02:58 7.0 (5.0-7.0) 12/02/18 02:58 Ur Specific [place] 1.008 (1.003-1.030) 12/02/18 02:58 100 mg/dl mg/dL (Negative) 12/02/18 02:58 >=500 mg/dL (Negative) 12/02/18 02:58 Neg mg/dL (Negative) 12/02/18 02:58 Sm (Negative) 12/02/18 02:58 Neg (Negative) 12/02/18 02:58 Neg (Negative) 12/02/18 02:58 < 2.0 mg/dL (<2.0) 12/02/18 02:58 Ur Leukocyte Esterase Neg (Negative) 12/02/18 02:58 12.0 /HPF (0.0-6.0) H 12/02/18 02:58 7.0 /HPF (0.0-6.0) 12/02/18 02:58 U Epithel Cells (Auto) < 1.0 /HPF (0-13.0) 12/02/18 02:58 Few /HPF 12/02/18 02:58 Presumptive negative 12/02/18 02:58 Presumptive negative 12/02/18 02:58 Ur Barbiturates Screen Presumptive negative 12/02/18 02:58 Ur Phencyclidine Scrn Presumptive negative 12/02/18 02:58 Ur Amphetamines Screen Presumptive negative 12/02/18 02:58 U Benzodiazepines Scrn Presumptive negative 12/02/18 02:58 Presumptive negative 12/02/18 02:58 U Marijuana (THC) Screen Presumptive positive 12/02/18 02:58 Disclamer 12/02/18 02:58 Active Medications - Current Medications Current Medications: Generic Name Dose Route Start Last Admin Trade Name Freq PRN Reason Stop Dose Admin Acetaminophen 650 mg 12/02/18 05:03 Tylenol PO Q4H PRN Pain MILD(1-3)/Fever >100.5/TORRES Albuterol/Ipratropium 1 ampul 12/02/18 08:00 12/08/18 08:26 Duoneb *Not For Prn Use* IH 1 ampul Q6HRT DC Administration Amiodarone HCl 200 mg 12/08/18 10:00 12/08/18 09:58 Cordarone PO 200 mg QDAY DC Administration Lipase/Protease/Amylase 1 each 12/05/18 09:15 [place] 10,500 Unit FEEDTUBE PRN PRN For Clogged Feeding Tube Aspirin 325 mg 12/07/18 10:00 12/08/18 09:58 Aspirin PO 325 mg QDAY DC Administration Atorvastatin Calcium 20 mg 12/06/18 22:00 12/07/18 21:09 Lipitor PO 20 mg QHS DC Administration Cilostazol 100 mg 12/06/18 11:00 12/08/18 10:00 Pletal PO 100 mg BID DC Administration Dextrose 25 ml 12/04/18 19:06 D50w (25gm) Syringe IV PRN PRN Hypoglycemia Enoxaparin Sodium 100 mg 12/07/18 12:00 12/08/18 09:59 Lovenox SUB-Q 100 mg Q12HR DC Administration Famotidine 20 mg 12/06/18 10:00 12/08/18 09:59 Pepcid PO 20 mg BID DC Administration Fentanyl 50 mcg 12/02/18 04:00 12/07/18 02:50 Sublimaze IV 50 mcg Q10MIN PRN Administration ANALGESIA Furosemide 40 mg 12/07/18 14:00 12/08/18 09:58 Lasix PO 40 mg QDAY DC Administration Hydralazine HCl 10 mg 12/06/18 09:44 Apresoline IV Q4HR PRN Blood Pressure Hydrophilic Ointment 1 applic 12/02/18 00:45 Vaseline Lip Therapy TP Q2HR PRN Dry Lips Propofol 1,000 mg in 100 mls @ 2.82 mls/hr 12/02/18 01:00 12/02/18 08:30 Diprivan 10 Mg/Ml IV 0 mcg/kg/min TITR DC 0 mls/hr Titration Protocol 5 MCG/KG/MIN Fentanyl Citrate 2,000 mcg in 100 mls @ 4.7 mls/hr 12/02/18 04:00 12/08/18 06:58 Fentanyl Drip Premix IV 0 mcg/kg/hr TITR DC 0 mls/hr Titration Protocol 1 MCG/KG/HR Norepinephrine 4 mg in 250 mls @ 7.5 mls/hr 12/02/18 04:15 12/08/18 10:24 Levophed Drip 4 Mg/Ns 250 Ml IV 0.5 mcg/min TITR DC 1.875 mls/hr Titration Protocol 2 MCG/MIN Metronidazole 500 mg in 100 mls @ 100 mls/hr 12/03/18 16:00 12/08/18 06:57 Flagyl 500 Mg/100 Ml IV 100 mls/hr Q8HR DC Administration Protocol Cefepime HCl 2 gm in 100 mls @ 200 mls/hr 12/06/18 22:00 12/08/18 06:57 Maxipime/Ns 2 Gm/100 Ml IV 200 mls/hr Q8HR DC Administration Protocol Insulin Human Lispro 0 unit 12/04/18 07:00 12/08/18 06:58 Humalog SUB-Q Not Given Q6HR [facility] Protocol Lorazepam 1 mg 12/06/18 09:26 Ativan IV Q4H PRN Anxiety Metoprolol Tartrate 5 mg 12/07/18 10:00 12/08/18 09:58 Lopressor IV 5 mg Q6H DC Administration Multi-Ingred Cream/Lotion/Oil/Oint 1 applic 12/02/18 00:45 Artificial Tears Ophth Oint OU Q4HR PRN Dry Eye(s) Ondansetron HCl 4 mg 12/02/18 05:03 Zofran IV Q8H PRN Nausea And Vomiting Potassium Chloride 40 meq 12/08/18 10:00 12/08/18 10:00 Potassium Chloride FEEDTUBE 12/08/18 22:01 40 meq BID DC Administration Simple Syrup 15 ml 12/05/18 09:15 Simple Syrup FEEDTUBE PRN PRN Hypoglycemia Simple Syrup 30 ml 12/05/18 09:15 Simple Syrup FEEDTUBE PRN PRN Hypoglycemia Sodium Bicarbonate 325 mg 12/05/18 09:15 Sodium Bicarbonate FEEDTUBE PRN PRN For Clogged Feeding Tube Sodium Chloride 10 ml 12/02/18 10:00 12/08/18 10:00 Sodium Chloride Flush Syringe 10 Ml IV 10 ml BID DC Administration Sodium Chloride 10 ml 12/02/18 05:03 Sodium Chloride Flush Syringe 10 Ml IV PRN PRN LINE FLUSH Nutrition/Malnutrition Assess - Dietary Evaluation Nutrition/Malnutrition Findings: Nutrition Notes Start: 12/02/18 08:27 Freq: Status: Active Protocol: Document 12/07/18 10:18 LP (Rec: 12/07/18 10:37 LP [id number]) Nutrition Notes Initial or Follow up Reassessment Current Diagnosis Hypertension,Heart Failure, Respiratory Failure, Hyperlipidemia Other Pertinent Diagnosis s/p cardiopulmonary arrest, septic shock, afib, bilat pneu Current Diet Vital HP at 55ml/hr Labs/Tests Na 145 Pertinent Medications Reviewed Height 5 ft 6 in Weight 94 kg [place] Body Weight (kg) 59.09 BMI 33.4 Subjective/Other Information Pt continues on vent. Vent weaning trials will be started today. Pt tolerating TF at goal rate. MD wanting to increase flush due to Na. Burn Absent Trauma Absent #1 Nutrition Diagnosis Inadequate oral intake Diagnosis Progress(for reassessment Continues documentation) Is patient on ventilator? Yes Is Patient Ambulatory and/or Out of Bed No REE-([facility]-confined to bed) [phone] Calculation Used for Recommendations [facility] Additional Notes Pro needs 2g/kg IBW: 118g/day Fluid needs 1ml/kcal Nutrition Intervention Change Diet Order: TF Nutrition Support: Vital HP at 55ml/hr with 150ml water flush q4h. Kcal 1,320 Protein (gm) 116 Fluid (mL) 1,104 Goal #1 TF tolerance Goal #2 TF to meet 65-70% energy and 90-100% pro needs Anticipated Discharge Needs: Unable to determine at this time Follow-Up By: 12/12/18 Additional Comments Follow TF tolerance, Na level and need to change flush
[2018-12-08] MEDS ORDERED: LASIX IV NR (16:00)
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
[2018-12-08] MEDS: fentaNYL DRIP Premix 2,000 MCG/100 ML BAG IV SCH (19:32)
--- NOTE | 2018-12-09 00:20 | Progress Note ---
Assessment and Plan Acute respiratory failure Extensive airspace disease on CT Leukocytosis Cardiopulmonary arrest Vfib requiring cardioversion in the ER MPI 09/16/2018 - normal Echo 09/16/2018 - normal LVEF Echo 12/02/2018- LVEF 30-35% Abnormal troponin likely type II WI post Vfib and electrical shock Echo this admission is showing significant deterioration in LVEF from 09/2018 Paroxysmal Atrial fibrillation, new onset currently in sinus rhythm Right common femoral vein DVT - new diagnosis this admission on lovenox Systemic Hypertension Peripheral vascular disease on cilostazol Hyperlipidemia Former smoker (quit in 2011) Morbid obesity Marijuana use Non-compliance with meds Plan: Continue amiodarone and metoprolol for suppression of paroxysmal Afib. Medical therapy for dilated cardiomyopathy as tolerated. Ultimately, left heart catheterization once patient is stable off the vent. Subjective Date of service: 12/09/18 Principal diagnosis: Ac hypoxemic resp failure; ARDS; Septic Shock; DVT; Cardiac arrest Interval history: No acute events. Resting comfortably. no chest pain or SOB. Objective Vital Signs Temp Pulse Pulse Pulse Resp Resp BP 12/08/18 23:01 99.2 F 12/08/18 22:55 98 H 115/67 12/08/18 19:56 99 H 97/64 12/08/18 19:40 93 H 27 H 12/08/18 19:33 100.6 F H 12/08/18 19:01 90 25 H 127/64 12/08/18 18:31 90 21 135/85 12/08/18 18:03 99 H 12/08/18 18:01 96 H 25 H 135/85 12/08/18 17:31 95 H 42 H 113/68 12/08/18 17:01 91 H 20 113/68 12/08/18 16:31 83 26 H 133/75 12/08/18 16:20 98 H 133/75 12/08/18 16:05 98 H 133/75 12/08/18 16:04 108 H 18 12/08/18 16:01 96 H 24 133/75 12/08/18 16:00 99.6 F 96 H 24 12/08/18 15:31 95 H 20 103/62 12/08/18 15:01 88 16 103/62 12/08/18 14:30 92 H 30 H 100/63 12/08/18 14:00 92 H 20 103/68 12/08/18 13:31 88 12 100/35 12/08/18 13:15 89 119/57 12/08/18 13:01 85 18 117/82 12/08/18 12:32 81 104/56 12/08/18 12:31 81 16 104/56 12/08/18 12:00 98.0 F 84 84 13 117/82 12/08/18 11:31 81 29 H 109/68 12/08/18 11:01 77 23 108/64 12/08/18 10:31 78 19 104/77 12/08/18 10:01 83 20 108/66 12/08/18 09:58 86 114/69 12/08/18 09:31 86 29 H 122/69 12/08/18 09:00 78 22 108/70 12/08/18 08:30 81 22 115/73 12/08/18 08:28 82 116/57 12/08/18 08:27 86 18 12/08/18 08:01 81 28 H 119/65 12/08/18 08:00 76 81 28 H 12/08/18 07:59 98.7 F 12/08/18 07:31 81 25 H 112/65 12/08/18 07:01 100 H 121/67 12/08/18 07:00 100 H 29 H 121/67 12/08/18 06:31 92 H 21 109/50 12/08/18 06:01 80 18 12/08/18 05:30 84 17 93/52 12/08/18 05:01 93 H 16 109/50 12/08/18 04:31 78 26 H 119/56 12/08/18 04:01 81 29 H 117/55 12/08/18 04:00 99 F 79 81 23 12/08/18 03:40 78 113/53 12/08/18 03:30 79 23 113/40 12/08/18 03:17 99 F 12/08/18 03:01 79 26 H 111/55 12/08/18 02:31 83 28 H 108/52 12/08/18 02:00 84 22 110/59 12/08/18 01:30 83 20 97/46 12/08/18 01:01 82 23 96/48 12/08/18 00:31 80 16 105/51 Pulse Ox 12/08/18 23:01 08/02/19 22:55 12/08/18 19:56 97 12/08/18 19:40 12/08/18 19:33 12/08/18 19:01 97 12/08/18 18:31 97 12/08/18 18:03 96 12/08/18 18:01 96 12/08/18 17:31 96 12/08/18 17:01 97 12/08/18 16:31 98 12/08/18 16:20 12/08/18 16:05 97 12/08/18 16:04 12/08/18 16:01 98 12/08/18 16:00 98 12/08/18 15:31 99 12/08/18 15:01 96 12/08/18 14:30 97 12/08/18 14:00 95 12/08/18 13:31 98 12/08/18 13:15 97 12/08/18 13:01 98 12/08/18 12:32 97 12/08/18 12:31 98 12/08/18 12:00 97 12/08/18 11:31 98 12/08/18 11:01 97 12/08/18 10:31 97 12/08/18 10:01 98 12/08/18 09:58 12/08/18 09:31 99 12/08/18 09:00 99 12/08/18 08:30 98 12/08/18 08:28 98 12/08/18 08:27 12/08/18 08:01 98 12/08/18 08:00 98 12/08/18 07:59 12/08/18 07:31 97 12/08/18 07:01 12/08/18 07:00 95 12/08/18 06:31 93 12/08/18 06:01 96 12/08/18 05:30 97 12/08/18 05:01 96 12/08/18 04:31 93 12/08/18 04:01 95 12/08/18 04:00 95 12/08/18 03:40 96 12/08/18 03:30 97 12/08/18 03:17 12/08/18 03:01 92 12/08/18 02:31 92 12/08/18 02:00 92 12/08/18 01:30 92 12/08/18 01:01 91 12/08/18 00:31 93 - Physical Examination General: Other (intubated on the vent) HEENT: Positive: PERRL Neuro: Positive: Grossly Intact Abdomen: Positive: Soft Extremities: Present: +1 Edema - Labs and Meds CBC 12/08/18 Range/Units 06:10 WBC 22.7 H (4.5-11.0) K/mm3 RBC 3.50 L (3.65-5.03) M/mm3 Hgb 9.4 L (10.1-14.3) gm/dl Hct 28.8 L (30.3-42.9) % Plt Count 280 (140-440) K/mm3 Comprehensive Metabolic Panel 12/08/18 Range/Units 06:10 Sodium 145 (137-145) mmol/L Potassium 3.5 L (3.6-5.0) mmol/L Chloride 108.8 H (98-107) mmol/L Carbon Dioxide 27 (22-30) mmol/L BUN 23 H (7-17) mg/dL Creatinine 0.6 L (0.7-1.2) mg/dL Glucose 140 H (65-100) mg/dL Calcium 8.1 L (8.4-10.2) mg/dL - Imaging and Cardiology EKG: image reviewed - Allied health notes Allied health notes reviewed: RT
[2018-12-09] MEDS: HumaLOG SUB-Q SCH ×5 (00:30→23:52)
[2018-12-09] MEDS: DUONEB *Not for PRN Use IH SCH ×4 (02:11→20:13)
--- NOTE | 2018-12-09 02:19 | XRay Report ---
. CHEST 1 VIEW INDICATION / CLINICAL INFORMATION: follow up respiratory failure. COMPARISON: 12/08/2018 FINDINGS: SUPPORT DEVICES: NG tube remains in place as well as endotracheal tube. PICC line remains on the righ t. HEART / MEDIASTINUM: Slightly enlarged but stable. LUNGS / PLEURA: Bilateral lung consolidation appears unchanged. No significant effusions. No pneumoth orax. ADDITIONAL FINDINGS: No significant additional findings. IMPRESSION: 1. No substantial change Signer Name: Baron Farmer MD Signed: 12/09/2018 2:14 AM Workstation Name: [id number]
[2018-12-09 05:08] LABS: Hematocrit 27.4 % (30.3-42.9); Hemoglobin 8.8 gm/dl (10.1-14.3); Mean Corpuscular HGB Conc 32 % (30-34); Mean Corpuscular Volume 82 fl (79-97); Platelet Count 314 K/mm3 (140-440); Red Blood Count 3.33 M/mm3 (3.65-5.03); Red Cell Distribution Width 15.9 % (13.2-15.2)
[2018-12-09 05:29] LABS: BUN/Creatinine Ratio 34; Blood Urea Nitrogen 24 mg/dL (7-17); Calcium 8.4 mg/dL (8.4-10.2); Hemolysis Index 0
[2018-12-09] MEDS: FLAGYL 500 MG/100 ML 500 MG/100 ML BAG IV SCH ×3 (07:05→23:50)
[2018-12-09] MEDS: MAXIPIME/NS 2 GM/100 ML 2 GM/100 ML BAG IV SCH ×2 (07:05→16:21)
[2018-12-09 07:12] LABS: Total Cells Counted 100
[2018-12-09 07:13] LABS: Anisocytosis Few; Basophils % (Manual) 0 % (0.0-1.8); Myelocytes # (Manual) 0.3 K/mm3
[2018-12-09 07:16] LABS: Platelet Estimate Consistent w Auto; Target Cells Few
[2018-12-09] MEDS: SODIUM CHLORIDE FLUSH SYRINGE 10 ML IV SCH ×2 (08:09→09:21)
[2018-12-09] MEDS: LOPRESSOR IV SCH ×3 (08:10→16:21)
[2018-12-09] MEDS: LASIX PO SCH (09:19)
[2018-12-09] MEDS: ASPIRIN PO SCH (09:19)
[2018-12-09] MEDS: CORDARONE PO SCH (09:19)
[2018-12-09] MEDS: PEPCID PO SCH (09:20)
[2018-12-09] MEDS: LOVENOX SUB-Q SCH (09:21)
[2018-12-09] MEDS: PLETAL PO SCH (09:21)
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
--- NOTE | 2018-12-09 13:56 | Progress Note ---
Assessment and Plan Assessment and plan: Septic shock -Probably secondary to bilateral pneumonia, ? aspiration -Continue cefepime and metronidazole -Off IV pressor -WBC level continues to trend up but pt afebrile, will cont to monitor -Blood and sputum cultures negative -ID following Acute hypoxemic respiratory failure -Status post intubation on mechanical ventilator -Off IV sedation -Failed prior wean off trials -Pulmonology following S/p V. fib arrest, requiring cardioversion in the emergency room. MPI 09/16/2018 - normal Echo 09/16/2018 - normal LVEF -Cardiology considering further eval with coronary angio when pt is off MV Shock -Septic versus cardiogenic -Off IV pressor -Blood pressure improved, monitor New onset systolic heart failure with EF of 30-35% -No acute exacerbation -On BB and oral Lasix. Not on ACEI due to labile BP Elevated troponin. -Etiology likely secondary to V. fib arrest/electrical shock. -Heparin drip changed to therapeutic Lovenox, cont BB, statin and asa New onset atrial fibrillation. -On Oral amiodarone and IV Lopressor -Rate improving, will monitor -On therapeutic Lovenox Acute right common femoral vein DVT -On therapeutic Lovenox Hypokalemia -Improving on repletion, will monitor level Hypomagnesemia -Resolved s/p repletion H/o hypertension. -Blood pressure labile -home antihypertensives on hold Hyperglycemia -No prior history of diabetes mellitus -Hemoglobin A1c: 5.6 -On SSI due to tube feeding -Continue Accu-Checks Hyperlipidemia. -Continue statin. Peripheral vascular disease -Cont cilostazol Normocytic anemia, likely chronic -H&H stable, will monitor Marijuana use -Cessation recommended Medication non-compliance -Patient counseled Obesity with BMI of 33.4 -Lifestyle modification recommended Nutrition: on tube feeding Disposition: Continue treatment in the ICU, pt is still on MV. Time spent: 38 minutes History Interval history: Patient is intubated but awake. She has no new complaints. She denies chest pain or shortness of breath. No overnight issues reported. Hospitalist Physical - Constitutional Vitals: Temp Pulse Resp BP Pulse Ox 98.4 F 103 H 36 H 129/75 95 12/09/18 08:00 12/09/18 11:54 12/09/18 11:54 12/09/18 11:54 12/09/18 11:54 General appearance: Present: no acute distress, other (intubated but awake) - EENT Eyes: Present: PERRL, EOM intact ENT: hearing intact, clear oral mucosa - Neck Neck: Present: supple - Respiratory Respiratory effort: normal Respiratory: right: rales, left: CTA - Cardiovascular Rhythm: regular Heart Sounds: Present: S1 & S2 - Extremities Extremity abnormal: edema (RT LE) - Abdominal General gastrointestinal: soft, non-tender, normal bowel sounds - Integumentary Integumentary: Present: clear, warm, dry - Psychiatric Psychiatric: cooperative - Neurologic Neurologic: moves all extremities Results - Labs CBC & Chem 7: 12/09/18 04:45 12/09/18 04:45 Labs: Laboratory Last Values WBC 27.6 K/mm3 (4.5-11.0) H 12/09/18 04:45 RBC 3.33 M/mm3 (3.65-5.03) L 12/09/18 04:45 Hgb 8.8 gm/dl (10.1-14.3) L 12/09/18 04:45 Hct 27.4 % (30.3-42.9) L 12/09/18 04:45 MCV 82 fl (79-97) 12/09/18 04:45 MCH 26 pg (28-32) L 12/09/18 04:45 MCHC 32 % (30-34) 12/09/18 04:45 RDW 15.9 % (13.2-15.2) H 12/09/18 04:45 Plt Count 314 K/mm3 (140-440) 12/09/18 04:45 Lymph % (Auto) Source Inspector 12/02/18 00:30 [place] % (Auto) 1.3 % (0.0-7.3) 12/03/18 04:07 Eos % (Auto) 0.0 % (0.0-4.3) 12/03/18 04:07 Baso % (Auto) Source Inspector 12/02/18 00:30 Lymph # Source Inspector 12/02/18 00:30 [place] # 0.3 K/mm3 (0.0-0.8) 12/03/18 04:07 Eos # 0.0 K/mm3 (0.0-0.4) 12/03/18 04:07 Baso # 0.0 K/mm3 (0.0-0.1) 12/03/18 04:07 Add Manual Diff Complete 12/09/18 04:45 Total Counted 100 12/09/18 04:45 Seg Neutrophils % Source Inspector 12/02/18 00:30 Seg Neuts % (Manual) 74.0 % (40.0-70.0) H 12/09/18 04:45 0 % 12/09/18 04:45 19.0 % (13.4-35.0) 12/09/18 04:45 Reactive Lymphs % (Man) 0 % 12/09/18 04:45 3.0 % (0.0-7.3) 12/09/18 04:45 2.0 % (0.0-4.3) 12/09/18 04:45 0 % (0.0-1.8) 12/09/18 04:45 1.0 % 12/09/18 04:45 1.0 % 12/09/18 04:45 0 % 12/09/18 04:45 0 % 12/09/18 04:45 Nucleated RBC % 2.0 % (0.0-0.9) H 12/09/18 04:45 Seg Neutrophils # 24.3 K/mm3 (1.8-7.7) H 12/03/18 04:07 Seg Neutrophils # Man 20.4 K/mm3 (1.8-7.7) H 12/09/18 04:45 Band Neutrophils # 0.0 K/mm3 12/09/18 04:45 5.2 K/mm3 (1.2-5.4) 12/09/18 04:45 Abs React Lymphs (Man) 0.0 K/mm3 12/09/18 04:45 0.8 K/mm3 (0.0-0.8) 12/09/18 04:45 0.6 K/mm3 (0.0-0.4) H 12/09/18 04:45 0.0 K/mm3 (0.0-0.1) 12/09/18 04:45 0.3 K/mm3 12/09/18 04:45 0.3 K/mm3 12/09/18 04:45 0.0 K/mm3 12/09/18 04:45 Blast Cells # 0.0 K/mm3 12/09/18 04:45 WBC Morphology Not Reportable 12/09/18 04:45 Hypersegmented Neuts Not Reportable 12/09/18 04:45 Hyposegmented Neuts Not Reportable 12/09/18 04:45 Hypogranular Neuts Not Reportable 12/09/18 04:45 Not Reportable 12/09/18 04:45 Not Reportable 12/09/18 04:45 Not Reportable 12/09/18 04:45 Not Reportable 12/09/18 04:45 Not Reportable 12/09/18 04:45 Not Reportable 12/09/18 04:45 Consistent w auto 12/09/18 04:45 Not Reportable 12/09/18 04:45 Plt Clumps, EDTA Not Reportable 12/09/18 04:45 Not Reportable 12/09/18 04:45 Not Reportable 12/09/18 04:45 Not Reportable 12/09/18 04:45 Plt Morphology Comment Not Reportable 12/09/18 04:45 RBC Morphology Not Reportable 12/09/18 04:45 Dimorphic RBCs Not Reportable 12/09/18 04:45 Not Reportable 12/09/18 04:45 Not Reportable 12/09/18 04:45 Not Reportable 12/09/18 04:45 Few 12/09/18 04:45 Not Reportable 12/09/18 04:45 Not Reportable 12/09/18 04:45 Not Reportable 12/09/18 04:45 Not Reportable 12/09/18 04:45 Not Reportable 12/09/18 04:45 Few 12/09/18 04:45 Not Reportable 12/09/18 04:45 Not Reportable 12/09/18 04:45 Not Reportable 12/09/18 04:45 Not Reportable 12/09/18 04:45 Not Reportable 12/09/18 04:45 Not Reportable 12/09/18 04:45 Not Reportable 12/09/18 04:45 Not Reportable 12/09/18 04:45 Not Reportable 12/09/18 04:45 Acanthocytes (Spur) Not Reportable 12/09/18 04:45 Rouleaux Not Reportable 12/09/18 04:45 Not Reportable 12/09/18 04:45 Not Reportable 12/09/18 04:45 Not Reportable 12/09/18 04:45 Not Reportable 12/09/18 04:45 Hem Pathologist Commnt No 12/09/18 04:45 PT 14.4 Sec. (12.2-14.9) 12/02/18 10:50 INR 1.15 (0.87-1.13) H 12/02/18 10:50 APTT 26.5 Sec. (24.2-36.6) 12/02/18 10:50 1085.94 ng/mlDDU (0-234) H 12/02/18 00:30 Heparin Anti-Xa Level < 0.10 U.I./ml (0.3-0.7) L 12/07/18 06:45 POC ABG pH 7.454 (7.35-7.45) H 12/09/18 06:27 POC ABG pCO2 40.7 (35-45) 12/09/18 06:27 POC ABG pO2 83 (80-105) 12/09/18 06:27 POC ABG HCO3 28.6 (22-26 mml/L) 12/09/18 06:27 POC ABG Total CO2 30 (23-27mmol/L) 12/09/18 06:27 POC ABG O2 Sat 97 12/09/18 06:27 POC ABG Base Excess 5 ((-2) - (+3)mmol/L) 12/09/18 06:27 40 % 12/09/18 06:27 Sodium 148 mmol/L (137-145) H 12/09/18 04:45 Potassium 3.8 mmol/L (3.6-5.0) 12/09/18 04:45 Chloride 108.7 mmol/L (98-107) H 12/09/18 04:45 Carbon Dioxide 30 mmol/L (22-30) 12/09/18 04:45 13 mmol/L 12/09/18 04:45 BUN 24 mg/dL (7-17) H 12/09/18 04:45 0.7 mg/dL (0.7-1.2) 12/09/18 04:45 Estimated GFR > 60 ml/min 12/09/18 04:45 34 % 12/09/18 04:45 Glucose 141 mg/dL (65-100) H 12/09/18 04:45 POC Glucose 162 (70-105) H 12/09/18 05:18 5.6 % (4-6) 12/04/18 08:03 Lactic Acid 1.60 mmol/L (0.7-2.0) 12/05/18 05:22 Calcium 8.4 mg/dL (8.4-10.2) 12/09/18 04:45 Phosphorus 1.80 mg/dL (2.5-4.5) L 12/07/18 09:14 Magnesium 2.00 mg/dL (1.7-2.3) 12/08/18 06:10 0.30 mg/dL (0.1-1.2) 12/06/18 04:36 AST 41 units/L (5-40) H 12/06/18 04:36 ALT 54 units/L (7-56) 12/06/18 04:36 128 units/L (35-129) 12/06/18 04:36 1322 units/L (30-135) H 12/02/18 10:50 CK-MB (CK-2) 216.7 ng/mL (0.0-4.0) H 12/02/18 10:50 CK-MB (CK-2) Rel Index 16.3 (0-4) H 12/02/18 10:50 0.871 ng/mL (0.00-0.029) H* D 12/02/18 10:50 32.60 mg/dL (0.00-1.30) H 12/04/18 05:23 6.3 g/dL (6.3-8.2) 12/06/18 04:36 2.3 g/dL (3.9-5) L 12/06/18 04:36 0.6 % 12/06/18 04:36 Triglycerides 358 mg/dL (2-149) H 12/02/18 03:14 Cholesterol 111 mg/dL (50-199) 12/02/18 03:14 42 mg/dL (50-130) L 12/02/18 03:14 29 mg/dL (40-59) L 12/02/18 03:14 3.82 % 12/02/18 03:14 TSH 1.820 mlU/mL (0.270-4.200) 12/07/18 11:24 Free T4 0.96 ng/dL (0.76-1.46) 12/07/18 11:24 Colorless (Yellow) 12/02/18 02:58 Clear (Clear) 12/02/18 02:58 7.0 (5.0-7.0) 12/02/18 02:58 Ur Specific [place] 1.008 (1.003-1.030) 12/02/18 02:58 100 mg/dl mg/dL (Negative) 12/02/18 02:58 >=500 mg/dL (Negative) 12/02/18 02:58 Neg mg/dL (Negative) 12/02/18 02:58 Sm (Negative) 12/02/18 02:58 Neg (Negative) 12/02/18 02:58 Neg (Negative) 12/02/18 02:58 < 2.0 mg/dL (<2.0) 12/02/18 02:58 Ur Leukocyte Esterase Neg (Negative) 12/02/18 02:58 12.0 /HPF (0.0-6.0) H 12/02/18 02:58 7.0 /HPF (0.0-6.0) 12/02/18 02:58 U Epithel Cells (Auto) < 1.0 /HPF (0-13.0) 12/02/18 02:58 Few /HPF 12/02/18 02:58 Presumptive negative 12/02/18 02:58 Presumptive negative 12/02/18 02:58 Ur Barbiturates Screen Presumptive negative 12/02/18 02:58 Ur Phencyclidine Scrn Presumptive negative 12/02/18 02:58 Ur Amphetamines Screen Presumptive negative 12/02/18 02:58 U Benzodiazepines Scrn Presumptive negative 12/02/18 02:58 Presumptive negative 12/02/18 02:58 U Marijuana (THC) Screen Presumptive positive 12/02/18 02:58 Disclamer 12/02/18 02:58 Active Medications - Current Medications Current Medications: Generic Name Dose Route Start Last Admin Trade Name Freq PRN Reason Stop Dose Admin Acetaminophen 650 mg 12/02/18 05:03 Tylenol PO Q4H PRN Pain MILD(1-3)/Fever >100.5/TORRES Albuterol/Ipratropium 1 ampul 12/02/18 08:00 12/09/18 07:35 Duoneb *Not For Prn Use* IH 1 ampul Q6HRT DC Administration Amiodarone HCl 200 mg 12/08/18 10:00 12/09/18 09:19 Cordarone PO 200 mg QDAY DC Administration Lipase/Protease/Amylase 1 each 12/05/18 09:15 [place] 10,500 Unit FEEDTUBE PRN PRN For Clogged Feeding Tube Aspirin 325 mg 12/07/18 10:00 12/09/18 09:19 Aspirin PO 325 mg QDAY DC Administration Atorvastatin Calcium 20 mg 12/06/18 22:00 12/08/18 22:51 Lipitor PO 20 mg QHS DC Administration Cilostazol 100 mg 12/06/18 11:00 12/09/18 09:21 Pletal PO 100 mg BID DC Administration Dextrose 25 ml 12/04/18 19:06 D50w (25gm) Syringe IV PRN PRN Hypoglycemia Enoxaparin Sodium 100 mg 12/07/18 12:00 12/09/18 09:21 Lovenox SUB-Q 100 mg Q12HR DC Administration Famotidine 20 mg 12/06/18 10:00 12/09/18 09:20 Pepcid PO 20 mg BID DC Administration Fentanyl 50 mcg 12/02/18 04:00 12/07/18 02:50 Sublimaze IV 50 mcg Q10MIN PRN Administration ANALGESIA Furosemide 40 mg 12/07/18 14:00 12/09/18 09:19 Lasix PO 40 mg QDAY DC Administration Hydralazine HCl 10 mg 12/06/18 09:44 Apresoline IV Q4HR PRN Blood Pressure Hydrophilic Ointment 1 applic 12/02/18 00:45 Vaseline Lip Therapy TP Q2HR PRN Dry Lips Propofol 1,000 mg in 100 mls @ 2.82 mls/hr 12/02/18 01:00 12/02/18 08:30 Diprivan 10 Mg/Ml IV 0 mcg/kg/min TITR DC 0 mls/hr Titration Protocol 5 MCG/KG/MIN Fentanyl Citrate 2,000 mcg in 100 mls @ 4.7 mls/hr 12/02/18 04:00 12/08/18 19:32 Fentanyl Drip Premix IV 2 mcg/kg/hr TITR DC 9.4 mls/hr Administration Protocol 1 MCG/KG/HR Norepinephrine 4 mg in 250 mls @ 7.5 mls/hr 12/02/18 04:15 12/08/18 10:24 Levophed Drip 4 Mg/Ns 250 Ml IV 0.5 mcg/min TITR DC 1.875 mls/hr Titration Protocol 2 MCG/MIN Metronidazole 500 mg in 100 mls @ 100 mls/hr 12/03/18 16:00 12/09/18 07:05 Flagyl 500 Mg/100 Ml IV 100 mls/hr Q8HR DC Administration Protocol Cefepime HCl 2 gm in 100 mls @ 200 mls/hr 12/06/18 22:00 12/09/18 07:05 Maxipime/Ns 2 Gm/100 Ml IV 200 mls/hr Q8HR [facility] Administration Protocol Insulin Human Lispro 0 unit 12/04/18 07:00 12/09/18 08:11 Humalog SUB-Q Not Given Q6HR [facility] Protocol Lorazepam 1 mg 12/06/18 09:26 12/09/18 09:28 Ativan IV 1 mg Q4H PRN Administration Anxiety Metoprolol Tartrate 5 mg 12/07/18 10:00 12/09/18 09:20 Lopressor IV 5 mg Q6H DC Administration Multi-Ingred Cream/Lotion/Oil/Oint 1 applic 12/02/18 00:45 Artificial Tears Ophth Oint OU Q4HR PRN Dry Eye(s) Ondansetron HCl 4 mg 12/02/18 05:03 Zofran IV Q8H PRN Nausea And Vomiting Simple Syrup 15 ml 12/05/18 09:15 Simple Syrup FEEDTUBE PRN PRN Hypoglycemia Simple Syrup 30 ml 12/05/18 09:15 Simple Syrup FEEDTUBE PRN PRN Hypoglycemia Sodium Bicarbonate 325 mg 12/05/18 09:15 Sodium Bicarbonate FEEDTUBE PRN PRN For Clogged Feeding Tube Sodium Chloride 10 ml 12/02/18 10:00 12/09/18 09:21 Sodium Chloride Flush Syringe 10 Ml IV 10 ml BID DC Administration Sodium Chloride 10 ml 12/02/18 05:03 Sodium Chloride Flush Syringe 10 Ml IV PRN PRN LINE FLUSH Nutrition/Malnutrition Assess - Dietary Evaluation Nutrition/Malnutrition Findings: Nutrition Notes Start: 12/02/18 08:27 Freq: Status: Active Protocol: Document 12/07/18 10:18 LP (Rec: 12/07/18 10:37 LP [id number]) Nutrition Notes Initial or Follow up Reassessment Current Diagnosis Hypertension,Heart Failure, Respiratory Failure, Hyperlipidemia Other Pertinent Diagnosis s/p cardiopulmonary arrest, septic shock, afib, bilat pneu Current Diet Vital HP at 55ml/hr Labs/Tests Na 145 Pertinent Medications Reviewed Height 5 ft 6 in Weight 94 kg [place] Body Weight (kg) 59.09 BMI 33.4 Subjective/Other Information Pt continues on vent. Vent weaning trials will be started today. Pt tolerating TF at goal rate. MD wanting to increase flush due to Na. Burn Absent Trauma Absent #1 Nutrition Diagnosis Inadequate oral intake Diagnosis Progress(for reassessment Continues documentation) Is patient on ventilator? Yes Is Patient Ambulatory and/or Out of Bed No REE-([facility]-confined to bed) [phone] Calculation Used for Recommendations [facility] Additional Notes Pro needs 2g/kg IBW: 118g/day Fluid needs 1ml/kcal Nutrition Intervention Change Diet Order: TF Nutrition Support: Vital HP at 55ml/hr with 150ml water flush q4h. Kcal 1,320 Protein (gm) 116 Fluid (mL) 1,104 Goal #1 TF tolerance Goal #2 TF to meet 65-70% energy and 90-100% pro needs Anticipated Discharge Needs: Unable to determine at this time Follow-Up By: 12/12/18 Additional Comments Follow TF tolerance, Na level and need to change flush
--- NOTE | 2018-12-09 22:18 | Progress Note ---
Assessment and Plan Acute respiratory failure Extensive airspace disease on CT Leukocytosis Cardiopulmonary arrest Vfib requiring cardioversion in the ER MPI 09/16/2018 - normal Echo 09/16/2018 - normal LVEF Echo 12/02/2018- LVEF 30-35% Abnormal troponin likely type II SD post Vfib and electrical shock Echo this admission is showing significant deterioration in LVEF from 09/2018 Paroxysmal Atrial fibrillation, new onset currently in sinus rhythm Right common femoral vein DVT - new diagnosis this admission on lovenox Systemic Hypertension Peripheral vascular disease on cilostazol Hyperlipidemia Former smoker (quit in 2011) Morbid obesity Marijuana use Non-compliance with meds Plan: Continue amiodarone and metoprolol for suppression of paroxysmal Afib. Medical therapy for dilated cardiomyopathy as tolerated. Ultimately, left heart catheterization once patient is stable off the vent. Subjective Date of service: 12/10/18 Principal diagnosis: Ac hypoxemic resp failure; ARDS; Septic Shock; DVT; Cardiac arrest Interval history: No acute events. Resting comfortably. no chest pain or SOB. Objective Vital Signs Temp Pulse Pulse Pulse Pulse Resp Resp 12/09/18 21:01 85 24 12/09/18 20:31 80 19 12/09/18 20:13 79 12/09/18 20:01 82 34 H 12/09/18 20:00 98.5 F 12/09/18 19:31 79 28 H 12/09/18 19:25 85 87 12/09/18 19:01 78 27 H 12/09/18 18:31 84 22 12/09/18 18:01 87 20 12/09/18 17:31 76 25 H 12/09/18 17:09 76 30 H 12/09/18 17:01 73 21 12/09/18 16:31 77 32 H 12/09/18 16:21 89 12/09/18 16:01 90 29 H 12/09/18 16:00 99.0 F 78 90 29 H 12/09/18 15:31 89 16 12/09/18 15:01 97 H 17 12/09/18 14:31 100 H 32 H 12/09/18 14:10 99 H 97 H 26 H 12/09/18 14:01 96 H 32 H 12/09/18 13:31 85 27 H 12/09/18 13:01 94 H 21 12/09/18 12:31 99 H 28 H 12/09/18 12:01 103 H 31 H 12/09/18 12:00 98.5 F 103 H 31 H 12/09/18 11:54 103 H 36 H 12/09/18 11:31 85 31 H 12/09/18 11:01 82 17 12/09/18 10:30 79 26 H 12/09/18 10:01 79 17 12/09/18 09:31 99 H 28 H 12/09/18 09:20 94 H 12/09/18 09:01 95 H 22 12/09/18 08:31 98 H 24 12/09/18 08:01 101 H 22 12/09/18 08:00 98.4 F 98 H 101 H 22 12/09/18 07:36 105 H 12/09/18 07:35 98 H 12/09/18 07:31 98 H 27 H 12/09/18 07:01 101 H 28 H 12/09/18 06:31 85 36 H 12/09/18 06:01 79 12/09/18 05:31 78 12/09/18 05:01 84 12/09/18 04:31 12/09/18 04:01 87 12/09/18 04:00 78 12/09/18 03:31 79 12/09/18 03:01 85 19 12/09/18 02:58 98.1 F 12/09/18 02:31 96 H 12/09/18 02:11 90 12/09/18 02:01 91 H 12/09/18 01:31 84 12/09/18 01:01 90 12/09/18 00:31 94 H 12/09/18 00:20 93 H 12/09/18 00:01 86 12/09/18 00:00 94 H 12/08/18 23:31 91 H 12/08/18 23:01 99.2 F 92 H 12/08/18 22:55 98 H 12/08/18 22:31 88 Resp BP Pulse Ox 12/09/18 21:01 121/59 95 12/09/18 20:31 148/80 98 12/09/18 20:13 148/80 98 12/09/18 20:01 148/80 99 12/09/18 20:00 12/09/18 19:31 136/99 98 12/09/18 19:25 12/09/18 19:01 136/99 98 12/09/18 18:31 136/99 99 12/09/18 18:01 136/99 94 12/09/18 17:31 133/68 100 12/09/18 17:09 133/68 99 12/09/18 17:01 133/68 100 12/09/18 16:31 133/68 98 12/09/18 16:21 133/68 12/09/18 16:01 164/65 93 12/09/18 16:00 93 12/09/18 15:31 164/65 96 12/09/18 15:01 164/65 12/09/18 14:31 164/65 98 12/09/18 14:10 28 H 12/09/18 14:01 152/69 96 12/09/18 13:31 133/64 97 12/09/18 13:01 147/66 95 12/09/18 12:31 147/66 97 12/09/18 12:01 124/72 94 12/09/18 12:00 94 12/09/18 11:54 129/75 95 12/09/18 11:31 129/75 95 12/09/18 11:01 124/72 96 12/09/18 10:30 121/75 98 12/09/18 10:01 121/75 95 12/09/18 09:31 121/75 88 12/09/18 09:20 121/75 12/09/18 09:01 121/75 96 12/09/18 08:31 128/71 94 12/09/18 08:01 139/80 95 12/09/18 08:00 95 12/09/18 07:36 89/53 96 12/09/18 07:35 20 12/09/18 07:31 89/53 97 12/09/18 07:01 89/53 97 12/09/18 06:31 89/53 95 12/09/18 06:01 89/53 97 12/09/18 05:31 89/53 97 12/09/18 05:01 89/53 97 12/09/18 04:31 89/53 96 12/09/18 04:01 117/70 96 12/09/18 04:00 95 12/09/18 03:31 117/70 96 12/09/18 03:01 117/70 95 12/09/18 02:58 12/09/18 02:31 117/70 97 12/09/18 02:11 24 12/09/18 02:01 117/70 95 12/09/18 01:31 123/56 96 12/09/18 01:01 99/52 96 12/09/18 00:31 117/61 96 12/09/18 00:20 117/61 95 12/09/18 00:01 117/61 97 12/09/18 00:00 12/08/18 23:31 139/69 96 12/08/18 23:01 115/67 97 12/08/18 22:55 115/67 12/08/18 22:31 115/67 98 - Physical Examination General: Other (intubated on the vent) HEENT: Positive: PERRL Neuro: Positive: Grossly Intact Abdomen: Positive: Soft Extremities: Present: +1 Edema - Labs and Meds CBC 12/09/18 Range/Units 04:45 WBC 27.6 H (4.5-11.0) K/mm3 RBC 3.33 L (3.65-5.03) M/mm3 Hgb 8.8 L (10.1-14.3) gm/dl Hct 27.4 L (30.3-42.9) % Plt Count 314 (140-440) K/mm3 Comprehensive Metabolic Panel 12/09/18 Range/Units 04:45 Sodium 148 H (137-145) mmol/L Potassium 3.8 (3.6-5.0) mmol/L Chloride 108.7 H (98-107) mmol/L Carbon Dioxide 30 (22-30) mmol/L BUN 24 H (7-17) mg/dL Creatinine 0.7 (0.7-1.2) mg/dL Glucose 141 H (65-100) mg/dL Calcium 8.4 (8.4-10.2) mg/dL - Imaging and Cardiology EKG: image reviewed - Allied health notes Allied health notes reviewed: RT
[2018-12-10] MEDS: MAXIPIME/NS 2 GM/100 ML 2 GM/100 ML BAG IV SCH ×4 (00:18→23:09)
[2018-12-10] MEDS: PEPCID PO SCH ×3 (00:19→23:09)
[2018-12-10] MEDS: LOPRESSOR IV SCH ×5 (00:19→23:17)
[2018-12-10] MEDS: PLETAL PO SCH ×3 (00:20→23:08)
[2018-12-10] MEDS: SODIUM CHLORIDE FLUSH SYRINGE 10 ML IV SCH ×2 (00:20→09:56)
[2018-12-10] MEDS: LOVENOX SUB-Q SCH ×3 (00:30→23:10)
[2018-12-10] MEDS: DUONEB *Not for PRN Use IH SCH ×4 (02:22→19:20)
[2018-12-10 04:27] LABS: Hematocrit 29.1 % (30.3-42.9); Hemoglobin 9.4 gm/dl (10.1-14.3); Mean Corpuscular HGB Conc 32 % (30-34); Mean Corpuscular Volume 82 fl (79-97); Platelet Count 425 K/mm3 (140-440); Red Blood Count 3.56 M/mm3 (3.65-5.03); Red Cell Distribution Width 15.8 % (13.2-15.2)
[2018-12-10] MEDS: HumaLOG SUB-Q SCH ×3 (04:50→17:45)
[2018-12-10 04:51] LABS: BUN/Creatinine Ratio 40; Blood Urea Nitrogen 28 mg/dL (7-17); Calcium 8.7 mg/dL (8.4-10.2); Hemolysis Index 5
[2018-12-10] MEDS: FLAGYL 500 MG/100 ML 500 MG/100 ML BAG IV SCH ×3 (05:00→23:09)
[2018-12-10 05:31] LABS: Basophils % (Manual) 0 % (0.0-1.8); Total Cells Counted 100
[2018-12-10 05:40] LABS: Anisocytosis Few
[2018-12-10 05:41] LABS: Giant Platelets Rare; Platelet Estimate Consistent w Auto; Target Cells Rare
[2018-12-10] MEDS: CORDARONE PO SCH (09:55)
[2018-12-10] MEDS: LASIX PO SCH (09:56)
[2018-12-10] MEDS: ASPIRIN PO SCH (09:56)
--- NOTE | 2018-12-10 11:13 | Progress Note ---
Assessment and Plan Assessment and plan: 53 -year-old woman with a history of hypertension, hyperlidemia, PVD comes to the emergency room with complaints of chest pain. While she was getting an EKG, she went into cardiac arrest, shocked once for vfib, started on amiodarone drip and intubated. She aspirated copious amount of gastric content. Cousin at bedside, R PAST MEDICAL HISTORY:hypertension, hyperlipidemia, PVD Septic shock -Probably secondary to bilateral pneumonia, ? aspiration -Continue cefepime and metronidazole -Off IV pressor -WBC level continues to trend up but pt afebrile, will cont to monitor -Blood and sputum cultures negative -ID following Acute hypoxemic respiratory failure -Status post intubation on mechanical ventilator -Off IV sedation -Failed prior wean off trials -Pulmonology following S/p V. fib arrest, requiring cardioversion in the emergency room. MPI 09/16/2018 - normal Echo 09/16/2018 - normal LVEF -Cardiology considering further eval with coronary angio when pt is off MV Shock -Septic versus cardiogenic -Off IV pressor -Blood pressure improved, monitor New onset systolic heart failure with EF of 30-35% -No acute exacerbation -On BB and oral Lasix. Not on ACEI due to labile BP Elevated troponin. -Etiology likely secondary to V. fib arrest/electrical shock. -Heparin drip changed to therapeutic Lovenox, cont BB, statin and asa New onset atrial fibrillation. -On Oral amiodarone and IV Lopressor -Rate improving, will monitor -On therapeutic Lovenox Acute right common femoral vein DVT -On therapeutic Lovenox Hypokalemia -Improving on repletion, will monitor level Hypomagnesemia -Resolved s/p repletion H/o hypertension. -Blood pressure labile -home antihypertensives on hold Hyperglycemia -No prior history of diabetes mellitus -Hemoglobin A1c: 5.6 -On SSI due to tube feeding -Continue Accu-Checks Hyperlipidemia. -Continue statin. Peripheral vascular disease -Cont cilostazol Normocytic anemia, likely chronic -H&H stable, will monitor Marijuana use -Cessation recommended Medication non-compliance -Patient counseled Obesity with BMI of 33.4 -Lifestyle modification recommended Nutrition: on tube feeding Disposition: Continue treatment in the ICU, pt is still on MV. CCT 38 minutes History Interval history: patient has been intubated and awake and cooperative not verbal due to intubation no fever, no vomiting or seizures Hospitalist Physical - Constitutional Vitals: Temp Pulse Resp BP Pulse Ox 98.2 F 76 27 H 121/57 99 12/10/18 08:00 12/10/18 10:00 12/10/18 09:01 12/10/18 10:00 12/10/18 08:31 General appearance: Present: no acute distress, other (intubated but awake) - EENT Eyes: Present: PERRL ENT: hearing intact - Neck Neck: Present: supple - Respiratory Respiratory effort: normal Respiratory: bilateral: diminished - Cardiovascular Heart Sounds: Present: S1 & S2 - Extremities Extremities: no ischemia - Abdominal General gastrointestinal: soft, non-tender - Psychiatric Psychiatric: appropriate mood/affect, intact judgment & insight - Neurologic Neurologic: CNII-XII intact, moves all extremities Results - Labs CBC & Chem 7: 12/14/18 13:40 12/14/18 05:04 Labs: Laboratory Last Values WBC 33.7 K/mm3 (4.5-11.0) H 12/10/18 04:09 RBC 3.56 M/mm3 (3.65-5.03) L 12/10/18 04:09 Hgb 9.4 gm/dl (10.1-14.3) L 12/10/18 04:09 Hct 29.1 % (30.3-42.9) L 12/10/18 04:09 MCV 82 fl (79-97) 12/10/18 04:09 MCH 26 pg (28-32) L 12/10/18 04:09 MCHC 32 % (30-34) 12/10/18 04:09 RDW 15.8 % (13.2-15.2) H 12/10/18 04:09 Plt Count 425 K/mm3 (140-440) 12/10/18 04:09 Lymph % (Auto) Certified Personal Trainer 12/02/18 00:30 Swisher % (Auto) 1.3 % (0.0-7.3) 12/03/18 04:07 Eos % (Auto) 0.0 % (0.0-4.3) 12/03/18 04:07 Baso % (Auto) Certified Personal Trainer 12/02/18 00:30 Lymph # Certified Personal Trainer 12/10/18 04:09 Swisher # 0.3 K/mm3 (0.0-0.8) 12/03/18 04:07 Eos # 0.0 K/mm3 (0.0-0.4) 12/03/18 04:07 Baso # 0.0 K/mm3 (0.0-0.1) 12/03/18 04:07 Add Manual Diff Complete 12/10/18 04:09 Total Counted 100 12/10/18 04:09 Seg Neutrophils % Certified Personal Trainer 12/02/18 00:30 Seg Neuts % (Manual) 78.0 % (40.0-70.0) H 12/10/18 04:09 0 % 12/10/18 04:09 18.0 % (13.4-35.0) 12/10/18 04:09 Reactive Lymphs % (Man) 0 % 12/10/18 04:09 1.0 % (0.0-7.3) 12/10/18 04:09 1.0 % (0.0-4.3) 12/10/18 04:09 0 % (0.0-1.8) 12/10/18 04:09 2.0 % 12/10/18 04:09 0 % 12/10/18 04:09 0 % 12/10/18 04:09 0 % 12/10/18 04:09 Nucleated RBC % Not Reportable 12/10/18 04:09 Seg Neutrophils # 24.3 K/mm3 (1.8-7.7) H 12/03/18 04:07 Seg Neutrophils # Man 26.3 K/mm3 (1.8-7.7) H 12/10/18 04:09 Band Neutrophils # 0.0 K/mm3 12/10/18 04:09 6.1 K/mm3 (1.2-5.4) H 12/10/18 04:09 Abs React Lymphs (Man) 0.0 K/mm3 12/10/18 04:09 0.3 K/mm3 (0.0-0.8) 12/10/18 04:09 0.3 K/mm3 (0.0-0.4) 12/10/18 04:09 0.0 K/mm3 (0.0-0.1) 12/10/18 04:09 0.7 K/mm3 12/10/18 04:09 0.0 K/mm3 12/10/18 04:09 0.0 K/mm3 12/10/18 04:09 Blast Cells # 0.0 K/mm3 12/10/18 04:09 WBC Morphology Not Reportable 12/10/18 04:09 Hypersegmented Neuts Not Reportable 12/10/18 04:09 Hyposegmented Neuts Not Reportable 12/10/18 04:09 Hypogranular Neuts Not Reportable 12/10/18 04:09 Not Reportable 12/10/18 04:09 Not Reportable 12/10/18 04:09 Not Reportable 12/10/18 04:09 Not Reportable 12/10/18 04:09 Not Reportable 12/10/18 04:09 Not Reportable 12/10/18 04:09 Consistent w auto 12/10/18 04:09 Not Reportable 12/10/18 04:09 Plt Clumps, EDTA Not Reportable 12/10/18 04:09 Not Reportable 12/10/18 04:09 Rare 12/10/18 04:09 Not Reportable 12/10/18 04:09 Plt Morphology Comment Not Reportable 12/10/18 04:09 RBC Morphology Not Reportable 12/10/18 04:09 Dimorphic RBCs Not Reportable 12/10/18 04:09 Not Reportable 12/10/18 04:09 Not Reportable 12/10/18 04:09 Not Reportable 12/10/18 04:09 Few 12/10/18 04:09 Not Reportable 12/10/18 04:09 Not Reportable 12/10/18 04:09 Not Reportable 12/10/18 04:09 Not Reportable 12/10/18 04:09 Not Reportable 12/10/18 04:09 Rare 12/10/18 04:09 Not Reportable 12/10/18 04:09 Not Reportable 12/10/18 04:09 Not Reportable 12/10/18 04:09 Not Reportable 12/10/18 04:09 Not Reportable 12/10/18 04:09 Not Reportable 12/10/18 04:09 Not Reportable 12/10/18 04:09 Not Reportable 12/10/18 04:09 Not Reportable 12/10/18 04:09 Acanthocytes (Spur) Not Reportable 12/10/18 04:09 Rouleaux Not Reportable 12/10/18 04:09 Not Reportable 12/10/18 04:09 Not Reportable 12/10/18 04:09 Not Reportable 12/10/18 04:09 Not Reportable 12/10/18 04:09 Hem Pathologist Commnt No 12/10/18 04:09 PT 14.4 Sec. (12.2-14.9) 12/02/18 10:50 INR 1.15 (0.87-1.13) H 12/02/18 10:50 APTT 26.5 Sec. (24.2-36.6) 12/02/18 10:50 1085.94 ng/mlDDU (0-234) H 12/02/18 00:30 Heparin Anti-Xa Level < 0.10 U.I./ml (0.3-0.7) L 12/07/18 06:45 POC ABG pH 7.415 (7.35-7.45) 12/10/18 08:10 POC ABG pCO2 44.6 (35-45) 12/10/18 08:10 POC ABG pO2 89 (80-105) 12/10/18 08:10 POC ABG HCO3 28.6 (22-26 mml/L) 12/10/18 08:10 POC ABG Total CO2 30 (23-27mmol/L) 12/10/18 08:10 POC ABG O2 Sat 97 12/10/18 08:10 POC ABG Base Excess 4 ((-2) - (+3)mmol/L) 12/10/18 08:10 40 % 12/10/18 08:10 Sodium 149 mmol/L (137-145) H 12/10/18 04:09 Potassium 3.8 mmol/L (3.6-5.0) 12/10/18 04:09 Chloride 110.5 mmol/L (98-107) H 12/10/18 04:09 Carbon Dioxide 31 mmol/L (22-30) H 12/10/18 04:09 11 mmol/L 12/10/18 04:09 BUN 28 mg/dL (7-17) H 12/10/18 04:09 0.7 mg/dL (0.7-1.2) 12/10/18 04:09 Estimated GFR > 60 ml/min 12/10/18 04:09 40 % 12/10/18 04:09 Glucose 129 mg/dL (65-100) H 12/10/18 04:09 POC Glucose 120 (70-105) H 12/10/18 04:57 5.6 % (4-6) 12/04/18 08:03 Lactic Acid 1.60 mmol/L (0.7-2.0) 12/05/18 05:22 Calcium 8.7 mg/dL (8.4-10.2) 12/10/18 04:09 Phosphorus 1.80 mg/dL (2.5-4.5) L 12/07/18 09:14 Magnesium 2.00 mg/dL (1.7-2.3) 12/08/18 06:10 0.30 mg/dL (0.1-1.2) 12/06/18 04:36 AST 41 units/L (5-40) H 12/06/18 04:36 ALT 54 units/L (7-56) 12/06/18 04:36 128 units/L (35-129) 12/06/18 04:36 1322 units/L (30-135) H 12/02/18 10:50 CK-MB (CK-2) 216.7 ng/mL (0.0-4.0) H 12/02/18 10:50 CK-MB (CK-2) Rel Index 16.3 (0-4) H 12/02/18 10:50 0.871 ng/mL (0.00-0.029) H* D 12/02/18 10:50 32.60 mg/dL (0.00-1.30) H 12/04/18 05:23 6.3 g/dL (6.3-8.2) 12/06/18 04:36 2.3 g/dL (3.9-5) L 12/06/18 04:36 0.6 % 12/06/18 04:36 Triglycerides 358 mg/dL (2-149) H 12/02/18 03:14 Cholesterol 111 mg/dL (50-199) 12/02/18 03:14 42 mg/dL (50-130) L 12/02/18 03:14 29 mg/dL (40-59) L 12/02/18 03:14 3.82 % 12/02/18 03:14 TSH 1.820 mlU/mL (0.270-4.200) 12/07/18 11:24 Free T4 0.96 ng/dL (0.76-1.46) 12/07/18 11:24 Colorless (Yellow) 12/02/18 02:58 Clear (Clear) 12/02/18 02:58 7.0 (5.0-7.0) 12/02/18 02:58 Ur Specific [place] 1.008 (1.003-1.030) 12/02/18 02:58 100 mg/dl mg/dL (Negative) 12/02/18 02:58 >=500 mg/dL (Negative) 12/02/18 02:58 Neg mg/dL (Negative) 12/02/18 02:58 Sm (Negative) 12/02/18 02:58 Neg (Negative) 12/02/18 02:58 Neg (Negative) 12/02/18 02:58 < 2.0 mg/dL (<2.0) 12/02/18 02:58 Ur Leukocyte Esterase Neg (Negative) 12/02/18 02:58 12.0 /HPF (0.0-6.0) H 12/02/18 02:58 7.0 /HPF (0.0-6.0) 12/02/18 02:58 U Epithel Cells (Auto) < 1.0 /HPF (0-13.0) 12/02/18 02:58 Few /HPF 12/02/18 02:58 Presumptive negative 12/02/18 02:58 Presumptive negative 12/02/18 02:58 Ur Barbiturates Screen Presumptive negative 12/02/18 02:58 Ur Phencyclidine Scrn Presumptive negative 12/02/18 02:58 Ur Amphetamines Screen Presumptive negative 12/02/18 02:58 U Benzodiazepines Scrn Presumptive negative 12/02/18 02:58 Presumptive negative 12/02/18 02:58 U Marijuana (THC) Screen Presumptive positive 12/02/18 02:58 Disclamer 12/02/18 02:58 Active Medications - Current Medications Current Medications: Generic Name Dose Route Start Last Admin Trade Name Freq PRN Reason Stop Dose Admin Acetaminophen 650 mg 12/02/18 05:03 Tylenol PO Q4H PRN Pain MILD(1-3)/Fever >100.5/TORRES Albuterol/Ipratropium 1 ampul 12/02/18 08:00 12/10/18 07:48 Duoneb *Not For Prn Use* IH 1 ampul Q6HRT DC Administration Amiodarone HCl 200 mg 12/08/18 10:00 12/10/18 09:55 Cordarone PO 200 mg QDAY DC Administration Lipase/Protease/Amylase 1 each 12/05/18 09:15 Pancreazyuriy [place] 10,500 Unit FEEDTUBE PRN PRN For Clogged Feeding Tube Aspirin 325 mg 12/07/18 10:00 12/10/18 09:56 Aspirin PO 325 mg QDAY DC Administration Atorvastatin Calcium 20 mg 12/06/18 22:00 12/10/18 00:19 Lipitor PO 20 mg QHS DC Administration Cilostazol 100 mg 12/06/18 11:00 12/10/18 10:00 Pletal PO 100 mg BID DC Administration Dextrose 25 ml 12/04/18 19:06 D50w (25gm) Syringe IV PRN PRN Hypoglycemia Enoxaparin Sodium 100 mg 12/07/18 12:00 12/10/18 09:55 Lovenox SUB-Q 100 mg Q12HR DC Administration Famotidine 20 mg 12/06/18 10:00 12/10/18 09:55 Pepcid PO 20 mg BID DC Administration Fentanyl 50 mcg 12/02/18 04:00 12/07/18 02:50 Sublimaze IV 50 mcg Q10MIN PRN Administration ANALGESIA Furosemide 40 mg 12/07/18 14:00 12/10/18 09:56 Lasix PO 40 mg QDAY DC Administration Hydralazine HCl 10 mg 12/06/18 09:44 Apresoline IV Q4HR PRN Blood Pressure Hydrophilic Ointment 1 applic 12/02/18 00:45 Vaseline Lip Therapy TP Q2HR PRN Dry Lips Propofol 1,000 mg in 100 mls @ 2.82 mls/hr 12/02/18 01:00 12/02/18 08:30 Diprivan 10 Mg/Ml IV 0 mcg/kg/min TITR DC 0 mls/hr Titration Protocol 5 MCG/KG/MIN Fentanyl Citrate 2,000 mcg in 100 mls @ 4.7 mls/hr 12/02/18 04:00 12/10/18 04:35 Fentanyl Drip Premix IV Infused TITR DC Titration Protocol 1 MCG/KG/HR Norepinephrine 4 mg in 250 mls @ 7.5 mls/hr 12/02/18 04:15 12/08/18 10:24 Levophed Drip 4 Mg/Ns 250 Ml IV 0.5 mcg/min TITR DC 1.875 mls/hr Titration Protocol 2 MCG/MIN Metronidazole 500 mg in 100 mls @ 100 mls/hr 12/03/18 16:00 12/10/18 06:00 Flagyl 500 Mg/100 Ml IV Infused Q8HR [facility] Infusion Protocol Cefepime HCl 2 gm in 100 mls @ 200 mls/hr 12/06/18 22:00 12/10/18 05:30 Maxipime/Ns 2 Gm/100 Ml IV Infused Q8HR DC Infusion Protocol Insulin Human Lispro 0 unit 12/04/18 07:00 12/10/18 04:50 Humalog SUB-Q Not Given Q6HR [facility] Protocol Lorazepam 1 mg 12/06/18 09:26 12/09/18 09:28 Ativan IV 1 mg Q4H PRN Administration Anxiety Metoprolol Tartrate 5 mg 12/07/18 10:00 12/10/18 10:00 Lopressor IV 5 mg Q6H DC Administration Multi-Ingred Cream/Lotion/Oil/Oint 1 applic 12/02/18 00:45 Artificial Tears Ophth Oint OU Q4HR PRN Dry Eye(s) Ondansetron HCl 4 mg 12/02/18 05:03 Zofran IV Q8H PRN Nausea And Vomiting Simple Syrup 15 ml 12/05/18 09:15 Simple Syrup FEEDTUBE PRN PRN Hypoglycemia Simple Syrup 30 ml 12/05/18 09:15 Simple Syrup FEEDTUBE PRN PRN Hypoglycemia Sodium Bicarbonate 325 mg 12/05/18 09:15 Sodium Bicarbonate FEEDTUBE PRN PRN For Clogged Feeding Tube Sodium Chloride 10 ml 12/02/18 10:00 12/10/18 09:56 Sodium Chloride Flush Syringe 10 Ml IV 10 ml BID DC Administration Sodium Chloride 10 ml 12/02/18 05:03 Sodium Chloride Flush Syringe 10 Ml IV PRN PRN LINE FLUSH Nutrition/Malnutrition Assess - Dietary Evaluation Nutrition/Malnutrition Findings: Nutrition Notes Start: 12/02/18 08:27 Freq: Status: Active Protocol: Document 12/07/18 10:18 LP (Rec: 12/07/18 10:37 LP [id number]) Nutrition Notes Initial or Follow up Reassessment Current Diagnosis Hypertension,Heart Failure, Respiratory Failure, Hyperlipidemia Other Pertinent Diagnosis s/p cardiopulmonary arrest, septic shock, afib, bilat pneu Current Diet Vital HP at 55ml/hr Labs/Tests Na 145 Pertinent Medications Reviewed Height 5 ft 6 in Weight 94 kg [place] Body Weight (kg) 59.09 BMI 33.4 Subjective/Other Information Pt continues on vent. Vent weaning trials will be started today. Pt tolerating TF at goal rate. wanting to increase flush due to Na. Burn Absent Trauma Absent #1 Nutrition Diagnosis Inadequate oral intake Diagnosis Progress(for reassessment Continues documentation) Is patient on ventilator? Yes Is Patient Ambulatory and/or Out of Bed No REE-([facility]-confined to bed) 6622.156 Calculation Used for Recommendations [facility] Additional Notes Pro needs 2g/kg IBW: 118g/day Fluid needs 1ml/kcal Nutrition Intervention Change Diet Order: TF Nutrition Support: Vital HP at 55ml/hr with 150ml water flush q4h. Kcal 1,320 Protein (gm) 116 Fluid (mL) 1,104 Goal #1 TF tolerance Goal #2 TF to meet 65-70% energy and 90-100% pro needs Anticipated Discharge Needs: Unable to determine at this time Follow-Up By: 12/12/18 Additional Comments Follow TF tolerance, Na level and need to change flush
--- NOTE | 2018-12-10 11:29 | Progress Note ---
Assessment and Plan Acute hypoxemic respiratory failure, on mechanical ventilatory support. Acute respiratory distress syndrome. Severe sepsis with shock. Aspiration pneumonia. Status post cardiac arrest with return of spontaneous circulation. Obesity. Hypertension. Hyperlipidemia. History of peripheral vascular disease. Leukocytosis that is mild. Elevated D-dimer. Hypercapnic respiratory failure. Elevated serum troponins. Hypokalemia. Mild metabolic acidosis. - reduce Psupp to 10 cm H2O - ABG after 2 hours - extubate direct to BIPAP if numbers acceptable then transition to qhs BIPAP - prn diuretics at this point - continue Peep at 8 and keep there during SBT's to prevent significant alveolar de-recruitment at this point - continue PT/OT/ROM exercises as tolerated - continue ARDS net/LTVV strategies - keep set rate at 12/min and wean further shortly - prn vasopressors to keep MAP > 65 mmHg - continue lovenox for DVT therapy - continue chronic disease med's per attending - continue daily SAT's and SBT assessment as tolerated - Titrate sedation to RASS 0 to -1 - 2D ECHO report noted (EF 30-35%; no pulmonary HTN) - continue bronchodilators with pulmonary hygiene per RT - continue empiric AB's; ID consulted and i will defer de-escalation to ID team - continue enteral nutrition as tolerated - wean supplemental oxygen as needed to keep O2 sat's > 90% - continue lung protective strategies - VAP bundle addressed - continue accuchecks with glycemic control per SSI for target blood glucose 140 - 180 mg/dL acutely - Agitation management - Prevention of delirium, maintenance of sleep-wake cycle - VTE and Stress ulcer prophylaxis - continue other care per attending / other consultants CONDITION: CRITICAL PROGNOSIS: GUARDED CODE STATUS: FULL The high probability of a clinically significant, sudden or life-threatening deterioration of the [respiratory and cardiac] system(s) required my full and direct attention, intervention and personal management. The aggregate critical care time was [35] minutes without overlap. Time includes spent on; [x] Data Review and interpretation [x] Patient assessment and monitoring of vital signs [x] Documentation [x] Medication orders and management Subjective Date of service: 12/10/18 Principal diagnosis: Ac hypoxemic resp failure; ARDS; Septic Shock; DVT; Cardiac arrest Interval history: Patient is seen today for: Acute hypoxemic respiratory failure; ARDS; Severe sepsis with shock; Aspiration pneumonia; Status post cardiac arrest with return of spontaneous circulation; Obesity.; Acute DVT Seen and examined at bedside; 24hour events reviewed; nursing and respiratory care staff consulted; no adverse overnight events reported to me; remains on MVS; on PSV trial but still at Psupp of 15; denies acute chest pains or palpitations; anxious looking at times; No N/V/F/C; oral seceretions moderate Objective Vital Signs - 12hr 12/09/18 12/09/18 12/09/18 23:30 23:31 23:49 Temperature Pulse Rate 91 H 88 Pulse Rate [ Bilateral Throughout] Respiratory 24 23 Rate Respiratory Rate [Bilateral Throughout] Blood Pressure 148/110 148/110 O2 Sat by Pulse 93 99 99 Oximetry 12/10/18 12/10/18 12/10/18 00:01 00:19 00:31 Temperature Pulse Rate 87 86 72 Pulse Rate [ Bilateral Throughout] Respiratory 21 13 Rate Respiratory Rate [Bilateral Throughout] Blood Pressure 148/110 148/110 141/69 O2 Sat by Pulse 99 Oximetry 12/10/18 12/10/18 12/10/18 00:36 01:00 01:01 Temperature Pulse Rate 71 75 70 Pulse Rate [ Bilateral Throughout] Respiratory 19 Rate Respiratory Rate [Bilateral Throughout] Blood Pressure 141/69 115/54 O2 Sat by Pulse 99 93 99 Oximetry 12/10/18 12/10/18 12/10/18 01:31 02:01 02:22 Temperature Pulse Rate 71 73 Pulse Rate [ 71 Bilateral Throughout] Respiratory 17 17 Rate Respiratory 20 Rate [Bilateral Throughout] Blood Pressure 141/69 109/51 O2 Sat by Pulse 100 96 Oximetry 12/10/18 12/10/18 12/10/18 02:31 03:01 03:31 Temperature Pulse Rate 75 75 78 Pulse Rate [ Bilateral Throughout] Respiratory 22 23 24 Rate Respiratory Rate [Bilateral Throughout] Blood Pressure 109/51 112/52 112/52 O2 Sat by Pulse 98 96 99 Oximetry 12/10/18 12/10/18 12/10/18 03:34 03:40 04:01 Temperature 98.8 F Pulse Rate 70 89 Pulse Rate [ Bilateral Throughout] Respiratory 31 H Rate Respiratory Rate [Bilateral Throughout] Blood Pressure 112/52 112/52 O2 Sat by Pulse 100 98 Oximetry 12/10/18 12/10/18 12/10/18 04:31 04:52 05:00 Temperature Pulse Rate 87 87 74 Pulse Rate [ Bilateral Throughout] Respiratory 26 H Rate Respiratory Rate [Bilateral Throughout] Blood Pressure 112/52 148/65 O2 Sat by Pulse 98 93 Oximetry 12/10/18 12/10/18 12/10/18 05:01 05:31 06:01 Temperature Pulse Rate 73 73 73 Pulse Rate [ Bilateral Throughout] Respiratory 19 20 18 Rate Respiratory Rate [Bilateral Throughout] Blood Pressure 148/65 148/65 148/65 O2 Sat by Pulse 96 99 Oximetry 12/10/18 12/10/18 12/10/18 06:13 06:31 07:01 Temperature Pulse Rate 68 80 72 Pulse Rate [ Bilateral Throughout] Respiratory 25 H 33 H 22 Rate Respiratory Rate [Bilateral Throughout] Blood Pressure 148/65 148/65 148/65 O2 Sat by Pulse 99 100 99 Oximetry 12/10/18 12/10/18 12/10/18 07:31 07:49 08:00 Temperature 98.2 F Pulse Rate 71 Pulse Rate [ 82 Bilateral Throughout] Respiratory 33 H Rate Respiratory 26 H Rate [Bilateral Throughout] Blood Pressure 133/73 O2 Sat by Pulse 99 Oximetry 12/10/18 12/10/18 12/10/18 08:01 08:05 08:31 Temperature Pulse Rate 79 77 73 Pulse Rate [ Bilateral Throughout] Respiratory 24 32 H 19 Rate Respiratory Rate [Bilateral Throughout] Blood Pressure 133/73 133/73 133/73 O2 Sat by Pulse 100 98 99 Oximetry 12/10/18 12/10/18 09:01 10:00 Temperature Pulse Rate 72 76 Pulse Rate [ Bilateral Throughout] Respiratory 27 H Rate Respiratory Rate [Bilateral Throughout] Blood Pressure 133/73 121/57 O2 Sat by Pulse Oximetry Constitutional: no acute distress, asleep, other (obese AAF, normocephalic and atraumatic with mildly increased resp effort on MVS) Eyes: non-icteric ENT: oropharynx moist, other (ETT 24 cm MERARY) Neck: supple, no lymphadenopathy, no JVD, other (large neck circumference) Effort: mildly labored Ascultation: Bilateral: clear, diminished breath sounds Percussion: Bilateral: not dull Cardiovascular: regular rate and rhythm, other (no R/M) Gastrointestinal: normoactive bowel sounds, soft, non-tender, non-distended, other (No HSM) Integumentary: normal Extremities: no cyanosis, pulses normal, no ischemia or petechiae Neurologic: normal mental status, non-focal exam (moves al extremities to painful stimuli), pupils equal and round, motor strength normal and Psychiatric: anxious CBC and BMP: 12/10/18 04:09 12/10/18 04:09 ABG, PT/INR, D-dimer: ABG POC ABG pH 7.415 (7.35-7.45) 12/10/18 08:10 POC ABG pCO2 44.6 (35-45) 12/10/18 08:10 POC ABG pO2 89 (80-105) 12/10/18 08:10 POC ABG HCO3 28.6 (22-26 mml/L) 12/10/18 08:10 POC ABG Total CO2 30 (23-27mmol/L) 12/10/18 08:10 POC ABG O2 Sat 97 12/10/18 08:10 PT/INR, D-dimer PT 14.4 Sec. (12.2-14.9) 12/02/18 10:50 INR 1.15 (0.87-1.13) H 12/02/18 10:50 1085.94 ng/mlDDU (0-234) H 12/02/18 00:30 Abnormal lab findings: Abnormal Labs 12/02/18 12/02/18 12/02/18 00:30 00:30 00:30 WBC 11.6 H RBC Hgb Hct MCH RDW 18.1 H Seg Neuts % (Manual) 35.0 L Lymphocytes % (Manual) 41.0 H Monocytes % (Manual) 11.0 H Eosinophils % (Manual) 6.0 H Nucleated RBC % Seg Neutrophils # Seg Neutrophils # Man Lymphocytes # (Manual) Monocytes # (Manual) 1.3 H Eosinophils # (Manual) 0.7 H INR D-Dimer 1085.94 H Heparin Anti-Xa Level POC ABG pH POC ABG pCO2 POC ABG pO2 Sodium Potassium 3.1 L Chloride Carbon Dioxide 21 L BUN 20 H Creatinine Glucose 222 H POC Glucose Lactic Acid Calcium Phosphorus Magnesium AST Total Creatine Kinase CK-MB (CK-2) CK-MB (CK-2) Rel Index Troponin T C-Reactive Protein Albumin Triglycerides LDL Cholesterol Direct HDL Cholesterol Urine WBC (Auto) 12/02/18 12/02/18 12/02/18 01:26 02:58 03:14 WBC RBC Hgb Hct MCH RDW Seg Neuts % (Manual) Lymphocytes % (Manual) Monocytes % (Manual) Eosinophils % (Manual) Nucleated RBC % Seg Neutrophils # Seg Neutrophils # Man Lymphocytes # (Manual) Monocytes # (Manual) Eosinophils # (Manual) INR D-Dimer Heparin Anti-Xa Level POC ABG pH 7.212 L POC ABG pCO2 55.1 H POC ABG pO2 121 H Sodium Potassium Chloride Carbon Dioxide BUN Creatinine Glucose POC Glucose Lactic Acid Calcium Phosphorus Magnesium AST Total Creatine Kinase CK-MB (CK-2) CK-MB (CK-2) Rel Index Troponin T 0.054 H D C-Reactive Protein Albumin Triglycerides 358 H LDL Cholesterol Direct 42 L HDL Cholesterol 29 L Urine WBC (Auto) 12.0 H 12/02/18 12/02/18 12/02/18 04:52 05:26 06:19 WBC RBC Hgb Hct MCH RDW Seg Neuts % (Manual) Lymphocytes % (Manual) Monocytes % (Manual) Eosinophils % (Manual) Nucleated RBC % Seg Neutrophils # Seg Neutrophils # Man Lymphocytes # (Manual) Monocytes # (Manual) Eosinophils # (Manual) INR D-Dimer Heparin Anti-Xa Level POC ABG pH 7.217 L 7.155 L POC ABG pCO2 52.7 H 57.3 H POC ABG pO2 56 L 57 L Sodium Potassium Chloride Carbon Dioxide BUN Creatinine Glucose POC Glucose Lactic Acid Calcium Phosphorus Magnesium AST Total Creatine Kinase 224 H CK-MB (CK-2) 30.7 H CK-MB (CK-2) Rel Index 13.7 H Troponin T 0.227 H* D C-Reactive Protein Albumin Triglycerides LDL Cholesterol Direct HDL Cholesterol Urine WBC (Auto) 12/02/18 12/02/18 12/02/18 07:52 10:50 10:50 WBC RBC Hgb Hct MCH RDW Seg Neuts % (Manual) Lymphocytes % (Manual) Monocytes % (Manual) Eosinophils % (Manual) Nucleated RBC % Seg Neutrophils # Seg Neutrophils # Man Lymphocytes # (Manual) Monocytes # (Manual) Eosinophils # (Manual) INR D-Dimer Heparin Anti-Xa Level POC ABG pH 7.150 L POC ABG pCO2 56.3 H POC ABG pO2 53 L Sodium Potassium Chloride Carbon Dioxide BUN Creatinine Glucose POC Glucose Lactic Acid Calcium Phosphorus Magnesium AST Total Creatine Kinase 1322 H CK-MB (CK-2) 216.7 H CK-MB (CK-2) Rel Index 16.3 H Troponin T 0.871 H* D C-Reactive Protein 4.30 H Albumin Triglycerides LDL Cholesterol Direct HDL Cholesterol Urine WBC (Auto) 12/02/18 12/02/18 12/02/18 10:50 10:50 17:46 WBC RBC Hgb Hct MCH RDW Seg Neuts % (Manual) Lymphocytes % (Manual) Monocytes % (Manual) Eosinophils % (Manual) Nucleated RBC % Seg Neutrophils # Seg Neutrophils # Man Lymphocytes # (Manual) Monocytes # (Manual) Eosinophils # (Manual) INR 1.15 H D-Dimer Heparin Anti-Xa Level POC ABG pH POC ABG pCO2 POC ABG pO2 Sodium Potassium Chloride Carbon Dioxide BUN Creatinine Glucose POC Glucose 135 H Lactic Acid 5.90 H* Calcium Phosphorus Magnesium AST Total Creatine Kinase CK-MB (CK-2) CK-MB (CK-2) Rel Index Troponin T C-Reactive Protein Albumin Triglycerides LDL Cholesterol Direct HDL Cholesterol Urine WBC (Auto) 12/02/18 12/02/18 12/03/18 18:09 20:18 01:47 WBC RBC Hgb Hct MCH RDW Seg Neuts % (Manual) Lymphocytes % (Manual) Monocytes % (Manual) Eosinophils % (Manual) Nucleated RBC % Seg Neutrophils # Seg Neutrophils # Man Lymphocytes # (Manual) Monocytes # (Manual) Eosinophils # (Manual) INR D-Dimer Heparin Anti-Xa Level < 0.10 L POC ABG pH 7.167 L 7.118 L POC ABG pCO2 52.6 H 55.1 H POC ABG pO2 79 L Sodium Potassium Chloride Carbon Dioxide BUN Creatinine Glucose POC Glucose Lactic Acid Calcium Phosphorus Magnesium AST Total Creatine Kinase CK-MB (CK-2) CK-MB (CK-2) Rel Index Troponin T C-Reactive Protein Albumin Triglycerides LDL Cholesterol Direct HDL Cholesterol Urine WBC (Auto) 12/03/18 12/03/18 12/03/18 04:07 04:07 06:30 WBC 26.3 H RBC Hgb Hct MCH RDW 15.9 H Seg Neuts % (Manual) 76.0 H Lymphocytes % (Manual) 6.0 L Monocytes % (Manual) Eosinophils % (Manual) Nucleated RBC % Seg Neutrophils # 24.3 H Seg Neutrophils # Man 20.0 H Lymphocytes # (Manual) Monocytes # (Manual) Eosinophils # (Manual) INR D-Dimer Heparin Anti-Xa Level POC ABG pH 7.326 L POC ABG pCO2 POC ABG pO2 290 H Sodium Potassium 3.5 L Chloride Carbon Dioxide 21 L BUN 19 H Creatinine Glucose 252 H POC Glucose Lactic Acid Calcium 6.7 L D Phosphorus Magnesium AST Total Creatine Kinase CK-MB (CK-2) CK-MB (CK-2) Rel Index Troponin T C-Reactive Protein Albumin Triglycerides LDL Cholesterol Direct HDL Cholesterol Urine WBC (Auto) 12/03/18 12/03/18 12/03/18 09:07 09:07 09:07 WBC RBC Hgb Hct MCH RDW Seg Neuts % (Manual) Lymphocytes % (Manual) Monocytes % (Manual) Eosinophils % (Manual) Nucleated RBC % Seg Neutrophils # Seg Neutrophils # Man Lymphocytes # (Manual) Monocytes # (Manual) Eosinophils # (Manual) INR D-Dimer Heparin Anti-Xa Level < 0.10 L POC ABG pH POC ABG pCO2 POC ABG pO2 Sodium Potassium Chloride Carbon Dioxide BUN Creatinine Glucose POC Glucose Lactic Acid 2.90 H* Calcium Phosphorus Magnesium 1.20 L AST Total Creatine Kinase CK-MB (CK-2) CK-MB (CK-2) Rel Index Troponin T C-Reactive Protein Albumin Triglycerides LDL Cholesterol Direct HDL Cholesterol Urine WBC (Auto) 12/03/18 12/03/18 12/04/18 11:51 18:11 05:16 WBC RBC Hgb Hct MCH RDW Seg Neuts % (Manual) Lymphocytes % (Manual) Monocytes % (Manual) Eosinophils % (Manual) Nucleated RBC % Seg Neutrophils # Seg Neutrophils # Man Lymphocytes # (Manual) Monocytes # (Manual) Eosinophils # (Manual) INR D-Dimer Heparin Anti-Xa Level POC ABG pH 7.464 H POC ABG pCO2 33.7 L POC ABG pO2 Sodium Potassium Chloride Carbon Dioxide BUN Creatinine Glucose POC Glucose 158 H 129 H Lactic Acid Calcium Phosphorus Magnesium AST Total Creatine Kinase CK-MB (CK-2) CK-MB (CK-2) Rel Index Troponin T C-Reactive Protein Albumin Triglycerides LDL Cholesterol Direct HDL Cholesterol Urine WBC (Auto) 12/04/18 12/04/18 12/04/18 05:23 05:23 05:23 WBC 23.7 H RBC 3.04 L Hgb 8.3 L Hct 25.2 L D MCH 27 L RDW 16.0 H Seg Neuts % (Manual) 97.0 H Lymphocytes % (Manual) 1.0 L Monocytes % (Manual) Eosinophils % (Manual) Nucleated RBC % Seg Neutrophils # Seg Neutrophils # Man 23.0 H Lymphocytes # (Manual) 0.2 L Monocytes # (Manual) Eosinophils # (Manual) INR D-Dimer Heparin Anti-Xa Level POC ABG pH POC ABG pCO2 POC ABG pO2 Sodium 136 L Potassium 2.5 L* D Chloride 92.9 L Carbon Dioxide 36 H D BUN Creatinine Glucose 528 H* POC Glucose Lactic Acid 2.20 H* Calcium 6.0 L Phosphorus Magnesium AST Total Creatine Kinase CK-MB (CK-2) CK-MB (CK-2) Rel Index Troponin T C-Reactive Protein Albumin Triglycerides LDL Cholesterol Direct HDL Cholesterol Urine WBC (Auto) 12/04/18 12/04/18 12/04/18 05:23 08:03 08:03 WBC RBC Hgb Hct MCH RDW Seg Neuts % (Manual) Lymphocytes % (Manual) Monocytes % (Manual) Eosinophils % (Manual) Nucleated RBC % Seg Neutrophils # Seg Neutrophils # Man Lymphocytes # (Manual) Monocytes # (Manual) Eosinophils # (Manual) INR D-Dimer Heparin Anti-Xa Level POC ABG pH POC ABG pCO2 POC ABG pO2 Sodium Potassium Chloride Carbon Dioxide BUN Creatinine Glucose POC Glucose Lactic Acid 2.90 H* Calcium Phosphorus Magnesium 1.40 L AST Total Creatine Kinase CK-MB (CK-2) CK-MB (CK-2) Rel Index Troponin T C-Reactive Protein 32.60 H Albumin Triglycerides LDL Cholesterol Direct HDL Cholesterol Urine WBC (Auto) 12/04/18 12/04/18 12/04/18 12:20 12:24 12:53 WBC RBC Hgb Hct MCH RDW Seg Neuts % (Manual) Lymphocytes % (Manual) Monocytes % (Manual) Eosinophils % (Manual) Nucleated RBC % Seg Neutrophils # Seg Neutrophils # Man Lymphocytes # (Manual) Monocytes # (Manual) Eosinophils # (Manual) INR D-Dimer Heparin Anti-Xa Level POC ABG pH POC ABG pCO2 POC ABG pO2 Sodium Potassium 3.2 L D Chloride Carbon Dioxide BUN Creatinine Glucose 170 H POC Glucose 52 L 54 L Lactic Acid Calcium 6.7 L Phosphorus Magnesium AST Total Creatine Kinase CK-MB (CK-2) CK-MB (CK-2) Rel Index Troponin T C-Reactive Protein Albumin Triglycerides LDL Cholesterol Direct HDL Cholesterol Urine WBC (Auto) 12/04/18 12/05/18 12/05/18 13:06 05:22 05:22 WBC 26.1 H RBC 3.61 L Hgb 9.7 L Hct 30.1 L MCH 27 L RDW 16.5 H Seg Neuts % (Manual) Lymphocytes % (Manual) Monocytes % (Manual) Eosinophils % (Manual) Nucleated RBC % Seg Neutrophils # Seg Neutrophils # Man Lymphocytes # (Manual) Monocytes # (Manual) Eosinophils # (Manual) INR D-Dimer Heparin Anti-Xa Level POC ABG pH POC ABG pCO2 POC ABG pO2 Sodium Potassium Chloride 113.9 H Carbon Dioxide BUN Creatinine Glucose POC Glucose 171 H Lactic Acid Calcium 7.8 L D Phosphorus Magnesium 2.50 H AST Total Creatine Kinase CK-MB (CK-2) CK-MB (CK-2) Rel Index Troponin T C-Reactive Protein Albumin Triglycerides LDL Cholesterol Direct HDL Cholesterol Urine WBC (Auto) 12/05/18 12/05/18 12/06/18 05:49 21:04 04:36 WBC 22.6 H RBC 3.62 L Hgb 9.9 L Hct 30.0 L MCH 27 L RDW 16.4 H Seg Neuts % (Manual) 90.0 H Lymphocytes % (Manual) 6.0 L Monocytes % (Manual) Eosinophils % (Manual) Nucleated RBC % Seg Neutrophils # Seg Neutrophils # Man 20.3 H Lymphocytes # (Manual) Monocytes # (Manual) Eosinophils # (Manual) INR D-Dimer Heparin Anti-Xa Level 0.14 L POC ABG pH 7.315 L POC ABG pCO2 POC ABG pO2 Sodium Potassium Chloride Carbon Dioxide BUN Creatinine Glucose POC Glucose Lactic Acid Calcium Phosphorus Magnesium AST Total Creatine Kinase CK-MB (CK-2) CK-MB (CK-2) Rel Index Troponin T C-Reactive Protein Albumin Triglycerides LDL Cholesterol Direct HDL Cholesterol Urine WBC (Auto) 12/06/18 12/06/18 12/06/18 04:36 04:36 05:37 WBC RBC Hgb Hct MCH RDW Seg Neuts % (Manual) Lymphocytes % (Manual) Monocytes % (Manual) Eosinophils % (Manual) Nucleated RBC % Seg Neutrophils # Seg Neutrophils # Man Lymphocytes # (Manual) Monocytes # (Manual) Eosinophils # (Manual) INR D-Dimer Heparin Anti-Xa Level < 0.10 L POC ABG pH POC ABG pCO2 POC ABG pO2 Sodium Potassium Chloride 111.6 H Carbon Dioxide BUN Creatinine Glucose 114 H POC Glucose 121 H Lactic Acid Calcium 8.0 L Phosphorus Magnesium AST 41 H Total Creatine Kinase CK-MB (CK-2) CK-MB (CK-2) Rel Index Troponin T C-Reactive Protein Albumin 2.3 L Triglycerides LDL Cholesterol Direct HDL Cholesterol Urine WBC (Auto) 12/06/18 12/06/18 12/06/18 11:46 14:15 18:34 WBC RBC Hgb Hct MCH RDW Seg Neuts % (Manual) Lymphocytes % (Manual) Monocytes % (Manual) Eosinophils % (Manual) Nucleated RBC % Seg Neutrophils # Seg Neutrophils # Man Lymphocytes # (Manual) Monocytes # (Manual) Eosinophils # (Manual) INR D-Dimer Heparin Anti-Xa Level 1.22 H POC ABG pH POC ABG pCO2 POC ABG pO2 Sodium Potassium Chloride Carbon Dioxide BUN Creatinine Glucose POC Glucose 122 H 110 H Lactic Acid Calcium Phosphorus Magnesium AST Total Creatine Kinase CK-MB (CK-2) CK-MB (CK-2) Rel Index Troponin T C-Reactive Protein Albumin Triglycerides LDL Cholesterol Direct HDL Cholesterol Urine WBC (Auto) 12/06/18 12/06/18 12/07/18 23:00 23:11 03:23 WBC RBC Hgb Hct MCH RDW Seg Neuts % (Manual) Lymphocytes % (Manual) Monocytes % (Manual) Eosinophils % (Manual) Nucleated RBC % Seg Neutrophils # Seg Neutrophils # Man Lymphocytes # (Manual) Monocytes # (Manual) Eosinophils # (Manual) INR D-Dimer Heparin Anti-Xa Level 0.15 L POC ABG pH POC ABG pCO2 POC ABG pO2 60 L Sodium Potassium Chloride Carbon Dioxide BUN Creatinine Glucose POC Glucose 138 H Lactic Acid Calcium Phosphorus Magnesium AST Total Creatine Kinase CK-MB (CK-2) CK-MB (CK-2) Rel Index Troponin T C-Reactive Protein Albumin Triglycerides LDL Cholesterol Direct HDL Cholesterol Urine WBC (Auto) 12/07/18 12/07/18 12/07/18 04:45 04:45 05:47 WBC 16.6 H RBC 3.56 L Hgb 9.7 L Hct 29.4 L MCH 27 L RDW 15.9 H Seg Neuts % (Manual) 86.0 H Lymphocytes % (Manual) 12.0 L Monocytes % (Manual) Eosinophils % (Manual) Nucleated RBC % Seg Neutrophils # Seg Neutrophils # Man 14.3 H Lymphocytes # (Manual) Monocytes # (Manual) Eosinophils # (Manual) INR D-Dimer Heparin Anti-Xa Level POC ABG pH POC ABG pCO2 POC ABG pO2 Sodium Potassium 3.2 L Chloride 107.6 H Carbon Dioxide BUN 20 H Creatinine Glucose 138 H POC Glucose 160 H Lactic Acid Calcium 8.0 L Phosphorus Magnesium AST Total Creatine Kinase CK-MB (CK-2) CK-MB (CK-2) Rel Index Troponin T C-Reactive Protein Albumin Triglycerides LDL Cholesterol Direct HDL Cholesterol Urine WBC (Auto) 12/07/18 12/07/18 12/07/18 06:45 09:14 12:46 WBC RBC Hgb Hct MCH RDW Seg Neuts % (Manual) Lymphocytes % (Manual) Monocytes % (Manual) Eosinophils % (Manual) Nucleated RBC % Seg Neutrophils # Seg Neutrophils # Man Lymphocytes # (Manual) Monocytes # (Manual) Eosinophils # (Manual) INR D-Dimer Heparin Anti-Xa Level < 0.10 L POC ABG pH POC ABG pCO2 POC ABG pO2 Sodium Potassium Chloride Carbon Dioxide BUN Creatinine Glucose POC Glucose 129 H Lactic Acid Calcium Phosphorus 1.80 L Magnesium AST Total Creatine Kinase CK-MB (CK-2) CK-MB (CK-2) Rel Index Troponin T C-Reactive Protein Albumin Triglycerides LDL Cholesterol Direct HDL Cholesterol Urine WBC (Auto) 12/07/18 12/07/18 12/08/18 17:33 23:42 05:09 WBC RBC Hgb Hct MCH RDW Seg Neuts % (Manual) Lymphocytes % (Manual) Monocytes % (Manual) Eosinophils % (Manual) Nucleated RBC % Seg Neutrophils # Seg Neutrophils # Man Lymphocytes # (Manual) Monocytes # (Manual) Eosinophils # (Manual) INR D-Dimer Heparin Anti-Xa Level POC ABG pH POC ABG pCO2 POC ABG pO2 Sodium Potassium Chloride Carbon Dioxide BUN Creatinine Glucose POC Glucose 131 H 141 H 151 H Lactic Acid Calcium Phosphorus Magnesium AST Total Creatine Kinase CK-MB (CK-2) CK-MB (CK-2) Rel Index Troponin T C-Reactive Protein Albumin Triglycerides LDL Cholesterol Direct HDL Cholesterol Urine WBC (Auto) 12/08/18 12/08/18 12/08/18 06:10 06:10 12:03 WBC 22.7 H RBC 3.50 L Hgb 9.4 L Hct 28.8 L MCH 27 L RDW 16.3 H Seg Neuts % (Manual) Lymphocytes % (Manual) Monocytes % (Manual) Eosinophils % (Manual) 10.0 H Nucleated RBC % Seg Neutrophils # Seg Neutrophils # Man 14.1 H Lymphocytes # (Manual) 6.1 H Monocytes # (Manual) Eosinophils # (Manual) 2.3 H INR D-Dimer Heparin Anti-Xa Level POC ABG pH POC ABG pCO2 POC ABG pO2 Sodium Potassium 3.5 L Chloride 108.8 H Carbon Dioxide BUN 23 H Creatinine 0.6 L Glucose 140 H POC Glucose 119 H Lactic Acid Calcium 8.1 L Phosphorus Magnesium AST Total Creatine Kinase CK-MB (CK-2) CK-MB (CK-2) Rel Index Troponin T C-Reactive Protein Albumin Triglycerides LDL Cholesterol Direct HDL Cholesterol Urine WBC (Auto) 12/08/18 12/08/18 12/08/18 13:19 18:03 18:26 WBC RBC Hgb Hct MCH RDW Seg Neuts % (Manual) Lymphocytes % (Manual) Monocytes % (Manual) Eosinophils % (Manual) Nucleated RBC % Seg Neutrophils # Seg Neutrophils # Man Lymphocytes # (Manual) Monocytes # (Manual) Eosinophils # (Manual) INR D-Dimer Heparin Anti-Xa Level POC ABG pH 7.466 H 7.467 H POC ABG pCO2 POC ABG pO2 71 L Sodium Potassium Chloride Carbon Dioxide BUN Creatinine Glucose POC Glucose 152 H Lactic Acid Calcium Phosphorus Magnesium AST Total Creatine Kinase CK-MB (CK-2) CK-MB (CK-2) Rel Index Troponin T C-Reactive Protein Albumin Triglycerides LDL Cholesterol Direct HDL Cholesterol Urine WBC (Auto) 12/08/18 12/09/18 12/09/18 23:21 04:45 04:45 WBC 27.6 H RBC 3.33 L Hgb 8.8 L Hct 27.4 L MCH 26 L RDW 15.9 H Seg Neuts % (Manual) 74.0 H Lymphocytes % (Manual) Monocytes % (Manual) Eosinophils % (Manual) Nucleated RBC % 2.0 H Seg Neutrophils # Seg Neutrophils # Man 20.4 H Lymphocytes # (Manual) Monocytes # (Manual) Eosinophils # (Manual) 0.6 H INR D-Dimer Heparin Anti-Xa Level POC ABG pH POC ABG pCO2 POC ABG pO2 Sodium 148 H Potassium Chloride 108.7 H Carbon Dioxide BUN 24 H Creatinine Glucose 141 H POC Glucose 130 H Lactic Acid Calcium Phosphorus Magnesium AST Total Creatine Kinase CK-MB (CK-2) CK-MB (CK-2) Rel Index Troponin T C-Reactive Protein Albumin Triglycerides LDL Cholesterol Direct HDL Cholesterol Urine WBC (Auto) 12/09/18 12/09/18 12/09/18 05:18 06:27 12:52 WBC RBC Hgb Hct MCH RDW Seg Neuts % (Manual) Lymphocytes % (Manual) Monocytes % (Manual) Eosinophils % (Manual) Nucleated RBC % Seg Neutrophils # Seg Neutrophils # Man Lymphocytes # (Manual) Monocytes # (Manual) Eosinophils # (Manual) INR D-Dimer Heparin Anti-Xa Level POC ABG pH 7.454 H POC ABG pCO2 POC ABG pO2 Sodium Potassium Chloride Carbon Dioxide BUN Creatinine Glucose POC Glucose 162 H 142 H Lactic Acid Calcium Phosphorus Magnesium AST Total Creatine Kinase CK-MB (CK-2) CK-MB (CK-2) Rel Index Troponin T C-Reactive Protein Albumin Triglycerides LDL Cholesterol Direct HDL Cholesterol Urine WBC (Auto) 12/09/18 12/09/18 12/10/18 18:27 23:54 04:09 WBC 33.7 H RBC 3.56 L Hgb 9.4 L Hct 29.1 L MCH 26 L RDW 15.8 H Seg Neuts % (Manual) 78.0 H Lymphocytes % (Manual) Monocytes % (Manual) Eosinophils % (Manual) Nucleated RBC % Seg Neutrophils # Seg Neutrophils # Man 26.3 H Lymphocytes # (Manual) 6.1 H Monocytes # (Manual) Eosinophils # (Manual) INR D-Dimer Heparin Anti-Xa Level POC ABG pH POC ABG pCO2 POC ABG pO2 Sodium Potassium Chloride Carbon Dioxide BUN Creatinine Glucose POC Glucose 117 H 108 H Lactic Acid Calcium Phosphorus Magnesium AST Total Creatine Kinase CK-MB (CK-2) CK-MB (CK-2) Rel Index Troponin T C-Reactive Protein Albumin Triglycerides LDL Cholesterol Direct HDL Cholesterol Urine WBC (Auto) 12/10/18 12/10/18 04:09 04:57 WBC RBC Hgb Hct MCH RDW Seg Neuts % (Manual) Lymphocytes % (Manual) Monocytes % (Manual) Eosinophils % (Manual) Nucleated RBC % Seg Neutrophils # Seg Neutrophils # Man Lymphocytes # (Manual) Monocytes # (Manual) Eosinophils # (Manual) INR D-Dimer Heparin Anti-Xa Level POC ABG pH POC ABG pCO2 POC ABG pO2 Sodium 149 H Potassium Chloride 110.5 H Carbon Dioxide 31 H BUN 28 H Creatinine Glucose 129 H POC Glucose 120 H Lactic Acid Calcium Phosphorus Magnesium AST Total Creatine Kinase CK-MB (CK-2) CK-MB (CK-2) Rel Index Troponin T C-Reactive Protein Albumin Triglycerides LDL Cholesterol Direct HDL Cholesterol Urine WBC (Auto) Allied health notes reviewed: RT
--- NOTE | 2018-12-10 16:39 | Progress Note ---
Assessment and Plan Cultures: 12/02/2018 sputum culture: Usual respiratory nolan 12/02/2018 urine culture: No growth 12/02/2018 blood culture: No growth A/P: 53-year-old female with hypertension, hyperlipidemia, peripheral vascular disease presented to the emergency room on 12/02/2018 with complaints of chest pain, developed V.fib arrest, now with: 1) Shock, multifactorial: Cardiogenic versus septic. Patient with V. fib arrest. Developed bilateral aspiration pneumonia vs pneumonitis. Now alert, oriented. 2) Bilateral airspace disease with concern for pneumonia with acute respiratory failure: CXR and CT chest showed bilateral airspace disease. Noted to have gastric content aspiration on admission. Empirically treat with IV cefepime and Flagyl. Cultures negative. CXR worse with increasing airspace disease, ?ARDS 3) Mixed acidosis: on admission. 4) V.fib arrest: cardiology following. EF 30-35%. Recs: Clinically improving but WBC increasing, also worsening airspace disease on CXR, ?ARDS. No diarrhea as such Currently on IV cefepime and Flagyl Day 7, would consider stopping and m onitoring clinically after extubation Dr. Rajat tiwari tomorrow. Kyle Cedeno MD, FACP [facility] ([facility] C: [phone] O: [phone] F: [phone] Subjective Date of service: 12/10/18 Principal diagnosis: Ac hypoxemic resp failure; ARDS; Septic Shock; DVT; Cardiac arrest Interval history: No fever. Remains intubated, but awake, denies any complaints. Denies any pain. Hoping to get extubated soon. No diarrhea. WBC though is worsening. Objective - Exam Narrative Exam: Physical Exam: Constitutional: awake, intubated Head, Ears, Nose: Normocephalic, atraumatic. External ears, nose normal Eyes: Conjunctivae/corneas clear. No icterus. No ptosis. Neck: Supple, no meningeal signs Oral: intubated Cardiovascular: S1, S2 normal. Respiratory: Good air entry, clear to auscultation bilaterally GI: Soft, non-tender; bowel sounds normal. No peritoneal signs Musculoskeletal: No edema, no cyanosis. Skin: No rash or abscess Hem/Lymphatic: No palpable cervical or supraclavicular nodes. No lymphangitis Psych: calm, no agitation Neurological: awake intubated, on vent - Constitutional Vitals: Vital Signs Temp Pulse Resp BP Pulse Ox 98.2 F 81 28 H 136/67 96 12/10/18 12:00 12/10/18 15:01 12/10/18 15:01 12/10/18 15:01 12/10/18 15:01 Temperature -Last 24 Hours Temperature 98.2 F Temperature 97.9 F Temperature 98.2 F Temperature 98.8 F Temperature 99.1 F Temperature 98.5 F - Labs CBC & Chem 7: 12/10/18 04:09 12/10/18 04:09 Labs: Abnormal lab results 12/09/18 12/09/18 12/09/18 Range/Units 12:52 18:27 23:54 WBC (4.5-11.0) K/mm3 RBC (3.65-5.03) M/mm3 Hgb (10.1-14.3) gm/dl Hct (30.3-42.9) % MCH (28-32) pg RDW (13.2-15.2) % Seg Neuts % (Manual) (40.0-70.0) % Seg Neutrophils # Man (1.8-7.7) K/mm3 Lymphocytes # (Manual) (1.2-5.4) K/mm3 Sodium (137-145) mmol/L Chloride (98-107) mmol/L Carbon Dioxide (22-30) mmol/L BUN (7-17) mg/dL Glucose (65-100) mg/dL POC Glucose 142 H 117 H 108 H (70-105) 12/10/18 12/10/18 12/10/18 Range/Units 04:09 04:09 04:57 WBC 33.7 H (4.5-11.0) K/mm3 RBC 3.56 L (3.65-5.03) M/mm3 Hgb 9.4 L (10.1-14.3) gm/dl Hct 29.1 L (30.3-42.9) % MCH 26 L (28-32) pg RDW 15.8 H (13.2-15.2) % Seg Neuts % (Manual) 78.0 H (40.0-70.0) % Seg Neutrophils # Man 26.3 H (1.8-7.7) K/mm3 Lymphocytes # (Manual) 6.1 H (1.2-5.4) K/mm3 Sodium 149 H (137-145) mmol/L Chloride 110.5 H (98-107) mmol/L Carbon Dioxide 31 H (22-30) mmol/L BUN 28 H (7-17) mg/dL Glucose 129 H (65-100) mg/dL POC Glucose 120 H (70-105) 12/10/18 Range/Units 12:15 WBC (4.5-11.0) K/mm3 RBC (3.65-5.03) M/mm3 Hgb (10.1-14.3) gm/dl Hct (30.3-42.9) % MCH (28-32) pg RDW (13.2-15.2) % Seg Neuts % (Manual) (40.0-70.0) % Seg Neutrophils # Man (1.8-7.7) K/mm3 Lymphocytes # (Manual) (1.2-5.4) K/mm3 Sodium (137-145) mmol/L Chloride (98-107) mmol/L Carbon Dioxide (22-30) mmol/L BUN (7-17) mg/dL Glucose (65-100) mg/dL POC Glucose 118 H (70-105) - Imaging and cardiology Chest x-ray: report reviewed, image reviewed (b/l diffuse airspace opacities ?ARDS)
[2018-12-11] MEDS: HumaLOG SUB-Q SCH ×3 (00:27→12:00)
[2018-12-11] MEDS: SODIUM CHLORIDE FLUSH SYRINGE 10 ML IV SCH ×3 (00:27→22:09)
[2018-12-11] MEDS: DUONEB *Not for PRN Use IH SCH ×4 (02:23→20:21)
--- NOTE | 2018-12-11 02:50 | XRay Report ---
. CHEST 1 VIEW INDICATION / CLINICAL INFORMATION: Pneumonia. COMPARISON: 12/09/2018 FINDINGS: SUPPORT DEVICES: Endotracheal tube has been removed. NG tube remains in place. PICC line remains on t he right. HEART / MEDIASTINUM: No significant abnormality. LUNGS / PLEURA: Bilateral lung consolidation shows slight improvement. No effusions are seen No pneum othorax. ADDITIONAL FINDINGS: No significant additional findings. IMPRESSION: 1. Slight interval improvement Signer Name: Baron Farmer MD Signed: 12/11/2018 2:46 AM Workstation Name: [employer]
[2018-12-11] MEDS: LOPRESSOR IV SCH ×2 (04:36→09:26)
[2018-12-11 05:11] LABS: Hematocrit 27.9 % (30.3-42.9); Hemoglobin 8.9 gm/dl (10.1-14.3); Mean Corpuscular HGB Conc 32 % (30-34); Mean Corpuscular Volume 83 fl (79-97); Platelet Count 465 K/mm3 (140-440); Red Blood Count 3.38 M/mm3 (3.65-5.03); Red Cell Distribution Width 15.9 % (13.2-15.2)
[2018-12-11 05:33] LABS: BUN/Creatinine Ratio 42; Blood Urea Nitrogen 25 mg/dL (7-17); Calcium 8.6 mg/dL (8.4-10.2); Hemolysis Index 0
[2018-12-11] MEDS: FLAGYL 500 MG/100 ML 500 MG/100 ML BAG IV SCH ×2 (05:59→14:27)
[2018-12-11] MEDS: MAXIPIME/NS 2 GM/100 ML 2 GM/100 ML BAG IV SCH ×2 (05:59→14:27)
[2018-12-11 06:57] LABS: Anisocytosis 1+; Total Cells Counted 100
[2018-12-11 06:58] LABS: Large Platelets Few; Platelet Estimate Consistent w Auto
--- NOTE | 2018-12-11 08:00 | Progress Note ---
Assessment and Plan Assessment and plan: 53 -year-old woman with a history of hypertension, hyperlidemia, PVD comes to the emergency room with complaints of chest pain. While she was getting an EKG, she went into cardiac arrest, shocked once for vfib, started on amiodarone drip and intubated. She aspirated copious amount of gastric content. Cousin at bedside, R PAST MEDICAL HISTORY:hypertension, hyperlipidemia, PVD Septic shock/severe sepsis -Probably secondary to bilateral pneumonia, ? aspiration -cont abx per ID Acute hypoxemic respiratory failure on MV > 96 hours extubated on 12/10 S/p V. fib arrest, requiring cardioversion in the emergency room. MPI 09/16/2018 - normal Echo 09/16/2018 - normal LVEF -Cardiology considering further eval with coronary angio when pt is off MV cardiogenic shock; improved New onset systolic heart failure with EF of 30-35% -No acute exacerbation -On BB and oral Lasix. Not on ACEI due to labile BP New onset atrial fibrillation. on rate control meds and therapeutic Lovenox per cardiology, planned for lifevest prior to dc Acute right common femoral vein DVT -On therapeutic Lovenox Hypokalemia/Hypomagnesemia -Improving on repletion, will monitor level H/o hypertension. -Blood pressure labile -home antihypertensives on hold Hyperglycemia -was likely due to acute stress/acute illness, no hx of dm and a1c is 5.6 Hyperlipidemia. -Continue statin. Peripheral vascular disease -Cont cilostazol Normocytic anemia, likely chronic -H&H stable, will monitor Marijuana use -Cessation recommended Medication non-compliance -Patient counseled Obesity with BMI of 33.4 -Lifestyle modification recommended Nutrition: on tube feeding CCT 33 mins History Interval history: sob is improved, no cp/wheezing or vomiting no fever, no vomiting or seizures Hospitalist Physical - Physical exam Narrative exam: General appearance: no acute distress, on NC - EENT Eyes: Present: PERRL ENT: hearing intact - Neck Neck: Present: supple - Respiratory Respiratory effort: normal Respiratory: bilateral: diminished - Cardiovascular Heart Sounds: Present: S1 & S2 - Extremities Extremities: no ischemia - Abdominal General gastrointestinal: soft, non-tender - Psychiatric Psychiatric: appropriate mood/affect, intact judgment & insight - Neurologic Neurologic: CNII-XII intact, moves all extremities - Constitutional Vitals: Temp Pulse Resp BP Pulse Ox 99 F 72 29 H 129/70 95 12/11/18 03:44 12/11/18 06:00 12/11/18 06:00 12/11/18 06:00 12/11/18 06:00 General appearance: Present: no acute distress, other (intubated but awake) Results - Labs CBC & Chem 7: 12/14/18 13:40 12/14/18 05:04 Labs: Laboratory Last Values WBC 30.8 K/mm3 (4.5-11.0) H 12/11/18 04:45 RBC 3.38 M/mm3 (3.65-5.03) L 12/11/18 04:45 Hgb 8.9 gm/dl (10.1-14.3) L 12/11/18 04:45 Hct 27.9 % (30.3-42.9) L 12/11/18 04:45 MCV 83 fl (79-97) 12/11/18 04:45 MCH 26 pg (28-32) L 12/11/18 04:45 MCHC 32 % (30-34) 12/11/18 04:45 RDW 15.9 % (13.2-15.2) H 12/11/18 04:45 Plt Count 465 K/mm3 (140-440) H 12/11/18 04:45 Lymph % (Auto) Analytical Consultant 12/02/18 00:30 [place] % (Auto) 1.3 % (0.0-7.3) 12/03/18 04:07 Eos % (Auto) 0.0 % (0.0-4.3) 12/03/18 04:07 Baso % (Auto) Analytical Consultant 12/02/18 00:30 Lymph # Analytical Consultant 12/10/18 04:09 [place] # 0.3 K/mm3 (0.0-0.8) 12/03/18 04:07 Eos # 0.0 K/mm3 (0.0-0.4) 12/03/18 04:07 Baso # 0.0 K/mm3 (0.0-0.1) 12/03/18 04:07 Add Manual Diff Complete 12/11/18 04:45 Total Counted 100 12/11/18 04:45 Seg Neutrophils % Analytical Consultant 12/02/18 00:30 Seg Neuts % (Manual) 86.0 % (40.0-70.0) H 12/11/18 04:45 0 % 12/11/18 04:45 8.0 % (13.4-35.0) L 12/11/18 04:45 Reactive Lymphs % (Man) 0 % 12/11/18 04:45 2.0 % (0.0-7.3) 12/11/18 04:45 2.0 % (0.0-4.3) 12/11/18 04:45 2.0 % (0.0-1.8) H 12/11/18 04:45 0 % 12/11/18 04:45 0 % 12/11/18 04:45 0 % 12/11/18 04:45 0 % 12/11/18 04:45 Nucleated RBC % Not Reportable 12/11/18 04:45 Seg Neutrophils # 24.3 K/mm3 (1.8-7.7) H 12/03/18 04:07 Seg Neutrophils # Man 26.5 K/mm3 (1.8-7.7) H 12/11/18 04:45 Band Neutrophils # 0.0 K/mm3 12/11/18 04:45 2.5 K/mm3 (1.2-5.4) 12/11/18 04:45 Abs React Lymphs (Man) 0.0 K/mm3 12/11/18 04:45 0.6 K/mm3 (0.0-0.8) 12/11/18 04:45 0.6 K/mm3 (0.0-0.4) H 12/11/18 04:45 0.6 K/mm3 (0.0-0.1) H 12/11/18 04:45 0.0 K/mm3 12/11/18 04:45 0.0 K/mm3 12/11/18 04:45 0.0 K/mm3 12/11/18 04:45 Blast Cells # 0.0 K/mm3 12/11/18 04:45 WBC Morphology Not Reportable 12/11/18 04:45 Hypersegmented Neuts Not Reportable 12/11/18 04:45 Hyposegmented Neuts Not Reportable 12/11/18 04:45 Hypogranular Neuts Not Reportable 12/11/18 04:45 Not Reportable 12/11/18 04:45 Not Reportable 12/11/18 04:45 Not Reportable 12/11/18 04:45 Not Reportable 12/11/18 04:45 Not Reportable 12/11/18 04:45 Not Reportable 12/11/18 04:45 Consistent w auto 12/11/18 04:45 Not Reportable 12/11/18 04:45 Plt Clumps, EDTA Not Reportable 12/11/18 04:45 Few 12/11/18 04:45 Not Reportable 12/11/18 04:45 Not Reportable 12/11/18 04:45 Plt Morphology Comment Not Reportable 12/11/18 04:45 RBC Morphology Not Reportable 12/11/18 04:45 Dimorphic RBCs Not Reportable 12/11/18 04:45 Not Reportable 12/11/18 04:45 Not Reportable 12/11/18 04:45 Not Reportable 12/11/18 04:45 1+ 12/11/18 04:45 Not Reportable 12/11/18 04:45 Not Reportable 12/11/18 04:45 Not Reportable 12/11/18 04:45 Not Reportable 12/11/18 04:45 Not Reportable 12/11/18 04:45 Not Reportable 12/11/18 04:45 Not Reportable 12/11/18 04:45 Not Reportable 12/11/18 04:45 Not Reportable 12/11/18 04:45 Not Reportable 12/11/18 04:45 Not Reportable 12/11/18 04:45 Not Reportable 12/11/18 04:45 Not Reportable 12/11/18 04:45 Not Reportable 12/11/18 04:45 Not Reportable 12/11/18 04:45 Acanthocytes (Spur) Not Reportable 12/11/18 04:45 Rouleaux Not Reportable 12/11/18 04:45 Not Reportable 12/11/18 04:45 Not Reportable 12/11/18 04:45 Not Reportable 12/11/18 04:45 Not Reportable 12/11/18 04:45 Hem Pathologist Commnt No 12/11/18 04:45 PT 14.4 Sec. (12.2-14.9) 12/02/18 10:50 INR 1.15 (0.87-1.13) H 12/02/18 10:50 APTT 26.5 Sec. (24.2-36.6) 12/02/18 10:50 1085.94 ng/mlDDU (0-234) H 12/02/18 00:30 Heparin Anti-Xa Level < 0.10 U.I./ml (0.3-0.7) L 12/07/18 06:45 POC ABG pH 7.445 (7.35-7.45) 12/10/18 16:54 POC ABG pCO2 42.2 (35-45) 12/10/18 16:54 POC ABG pO2 95 (80-105) 12/10/18 16:54 POC ABG HCO3 29.0 (22-26 mml/L) 12/10/18 16:54 POC ABG Total CO2 30 (23-27mmol/L) 12/10/18 16:54 POC ABG O2 Sat 98 12/10/18 16:54 POC ABG Base Excess 5 ((-2) - (+3)mmol/L) 12/10/18 16:54 40 % 12/10/18 16:54 Sodium 146 mmol/L (137-145) H 12/11/18 04:45 Potassium 3.7 mmol/L (3.6-5.0) 12/11/18 04:45 Chloride 107.6 mmol/L (98-107) H 12/11/18 04:45 Carbon Dioxide 30 mmol/L (22-30) 12/11/18 04:45 12 mmol/L 12/11/18 04:45 BUN 25 mg/dL (7-17) H 12/11/18 04:45 0.6 mg/dL (0.7-1.2) L 12/11/18 04:45 Estimated GFR > 60 ml/min 12/11/18 04:45 42 % 12/11/18 04:45 Glucose 116 mg/dL (65-100) H 12/11/18 04:45 POC Glucose 106 (70-105) H 12/11/18 05:07 5.6 % (4-6) 12/04/18 08:03 Lactic Acid 1.60 mmol/L (0.7-2.0) 12/05/18 05:22 Calcium 8.6 mg/dL (8.4-10.2) 12/11/18 04:45 Phosphorus 1.80 mg/dL (2.5-4.5) L 12/07/18 09:14 Magnesium 2.00 mg/dL (1.7-2.3) 12/08/18 06:10 0.30 mg/dL (0.1-1.2) 12/06/18 04:36 AST 41 units/L (5-40) H 12/06/18 04:36 ALT 54 units/L (7-56) 12/06/18 04:36 128 units/L (35-129) 12/06/18 04:36 1322 units/L (30-135) H 12/02/18 10:50 CK-MB (CK-2) 216.7 ng/mL (0.0-4.0) H 12/02/18 10:50 CK-MB (CK-2) Rel Index 16.3 (0-4) H 12/02/18 10:50 0.871 ng/mL (0.00-0.029) H* D 12/02/18 10:50 32.60 mg/dL (0.00-1.30) H 12/04/18 05:23 6.3 g/dL (6.3-8.2) 12/06/18 04:36 2.3 g/dL (3.9-5) L 12/06/18 04:36 0.6 % 12/06/18 04:36 Triglycerides 358 mg/dL (2-149) H 12/02/18 03:14 Cholesterol 111 mg/dL (50-199) 12/02/18 03:14 42 mg/dL (50-130) L 12/02/18 03:14 29 mg/dL (40-59) L 12/02/18 03:14 3.82 % 12/02/18 03:14 TSH 1.820 mlU/mL (0.270-4.200) 12/07/18 11:24 Free T4 0.96 ng/dL (0.76-1.46) 12/07/18 11:24 Colorless (Yellow) 12/02/18 02:58 Clear (Clear) 12/02/18 02:58 7.0 (5.0-7.0) 12/02/18 02:58 Ur Specific [place] 1.008 (1.003-1.030) 12/02/18 02:58 100 mg/dl mg/dL (Negative) 12/02/18 02:58 >=500 mg/dL (Negative) 12/02/18 02:58 Neg mg/dL (Negative) 12/02/18 02:58 Sm (Negative) 12/02/18 02:58 Neg (Negative) 12/02/18 02:58 Neg (Negative) 12/02/18 02:58 < 2.0 mg/dL (<2.0) 12/02/18 02:58 Ur Leukocyte Esterase Neg (Negative) 12/02/18 02:58 12.0 /HPF (0.0-6.0) H 12/02/18 02:58 7.0 /HPF (0.0-6.0) 12/02/18 02:58 U Epithel Cells (Auto) < 1.0 /HPF (0-13.0) 12/02/18 02:58 Few /HPF 12/02/18 02:58 Presumptive negative 12/02/18 02:58 Presumptive negative 12/02/18 02:58 Ur Barbiturates Screen Presumptive negative 12/02/18 02:58 Ur Phencyclidine Scrn Presumptive negative 12/02/18 02:58 Ur Amphetamines Screen Presumptive negative 12/02/18 02:58 U Benzodiazepines Scrn Presumptive negative 12/02/18 02:58 Presumptive negative 12/02/18 02:58 U Marijuana (THC) Screen Presumptive positive 12/02/18 02:58 Disclamer 12/02/18 02:58 Active Medications - Current Medications Current Medications: Generic Name Dose Route Start Last Admin Trade Name Freq PRN Reason Stop Dose Admin Acetaminophen 650 mg 12/02/18 05:03 Tylenol PO Q4H PRN Pain MILD(1-3)/Fever >100.5/TORRES Albuterol/Ipratropium 1 ampul 12/02/18 08:00 12/11/18 02:23 Duoneb *Not For Prn Use* IH 1 ampul Q6HRT DC Administration Amiodarone HCl 200 mg 12/08/18 10:00 12/10/18 09:55 Cordarone PO 200 mg QDAY DC Administration Lipase/Protease/Amylase 1 each 12/05/18 09:15 [place] 10,500 Unit FEEDTUBE PRN PRN For Clogged Feeding Tube Aspirin 325 mg 12/07/18 10:00 12/10/18 09:56 Aspirin PO 325 mg QDAY DC Administration Atorvastatin Calcium 20 mg 12/06/18 22:00 12/10/18 23:09 Lipitor PO 20 mg QHS DC Administration Cilostazol 100 mg 12/06/18 11:00 12/10/18 23:08 Pletal PO 100 mg BID DC Administration Dextrose 25 ml 12/04/18 19:06 D50w (25gm) Syringe IV PRN PRN Hypoglycemia Enoxaparin Sodium 100 mg 12/07/18 12:00 12/10/18 23:10 Lovenox SUB-Q 100 mg Q12HR DC Administration Famotidine 20 mg 12/06/18 10:00 12/10/18 23:09 Pepcid PO 20 mg BID DC Administration Fentanyl 50 mcg 12/02/18 04:00 12/07/18 02:50 Sublimaze IV 50 mcg Q10MIN PRN Administration ANALGESIA Furosemide 40 mg 12/07/18 14:00 12/10/18 09:56 Lasix PO 40 mg QDAY DC Administration Hydralazine HCl 10 mg 12/06/18 09:44 Apresoline IV Q4HR PRN Blood Pressure Hydrophilic Ointment 1 applic 12/02/18 00:45 Vaseline Lip Therapy TP Q2HR PRN Dry Lips Propofol 1,000 mg in 100 mls @ 2.82 mls/hr 12/02/18 01:00 12/02/18 08:30 Diprivan 10 Mg/Ml IV 0 mcg/kg/min TITR DC 0 mls/hr Titration Protocol 5 MCG/KG/MIN Fentanyl Citrate 2,000 mcg in 100 mls @ 4.7 mls/hr 12/02/18 04:00 12/10/18 04:35 Fentanyl Drip Premix IV Infused TITR DC Titration Protocol 1 MCG/KG/HR Norepinephrine 4 mg in 250 mls @ 7.5 mls/hr 12/02/18 04:15 12/08/18 10:24 Levophed Drip 4 Mg/Ns 250 Ml IV 0.5 mcg/min TITR DC 1.875 mls/hr Titration Protocol 2 MCG/MIN Metronidazole 500 mg in 100 mls @ 100 mls/hr 12/03/18 16:00 12/11/18 05:59 Flagyl 500 Mg/100 Ml IV 100 mls/hr Q8HR [facility] Administration Protocol Cefepime HCl 2 gm in 100 mls @ 200 mls/hr 12/06/18 22:00 12/11/18 05:59 Maxipime/Ns 2 Gm/100 Ml IV 200 mls/hr Q8HR [facility] Administration Protocol Insulin Human Lispro 0 unit 12/04/18 07:00 12/11/18 06:30 Humalog SUB-Q Not Given Q6HR [facility] Protocol Lorazepam 1 mg 12/06/18 09:26 12/09/18 09:28 Ativan IV 1 mg Q4H PRN Administration Anxiety Metoprolol Tartrate 5 mg 12/07/18 10:00 12/11/18 04:36 Lopressor IV Not Given Q6H [facility] Multi-Ingred Cream/Lotion/Oil/Oint 1 applic 12/02/18 00:45 Artificial Tears Ophth Oint OU Q4HR PRN Dry Eye(s) Ondansetron HCl 4 mg 12/02/18 05:03 Zofran IV Q8H PRN Nausea And Vomiting Simple Syrup 15 ml 12/05/18 09:15 Simple Syrup FEEDTUBE PRN PRN Hypoglycemia Simple Syrup 30 ml 12/05/18 09:15 Simple Syrup FEEDTUBE PRN PRN Hypoglycemia Sodium Bicarbonate 325 mg 12/05/18 09:15 Sodium Bicarbonate FEEDTUBE PRN PRN For Clogged Feeding Tube Sodium Chloride 10 ml 12/02/18 10:00 12/11/18 00:27 Sodium Chloride Flush Syringe 10 Ml IV Not Given BID DC Sodium Chloride 10 ml 12/02/18 05:03 Sodium Chloride Flush Syringe 10 Ml IV PRN PRN LINE FLUSH Nutrition/Malnutrition Assess - Dietary Evaluation Nutrition/Malnutrition Findings: Nutrition Notes Start: 12/02/18 08:27 Freq: Status: Active Protocol: Document 12/07/18 10:18 LP (Rec: 12/07/18 10:37 LP [id number]) Nutrition Notes Initial or Follow up Reassessment Current Diagnosis Hypertension,Heart Failure, Respiratory Failure, Hyperlipidemia Other Pertinent Diagnosis s/p cardiopulmonary arrest, septic shock, afib, bilat pneu Current Diet Vital HP at 55ml/hr Labs/Tests Na 145 Pertinent Medications Reviewed Height 5 ft 6 in Weight 94 kg [place] Body Weight (kg) 59.09 BMI 33.4 Subjective/Other Information Pt continues on vent. Vent weaning trials will be started today. Pt tolerating TF at goal rate. wanting to increase flush due to Na. Burn Absent Trauma Absent #1 Nutrition Diagnosis Inadequate oral intake Diagnosis Progress(for reassessment Continues documentation) Is patient on ventilator? Yes Is Patient Ambulatory and/or Out of Bed No REE-([facility]-confined to bed) 7922.156 Calculation Used for Recommendations [facility] Additional Notes Pro needs 2g/kg IBW: 118g/day Fluid needs 1ml/kcal Nutrition Intervention Change Diet Order: TF Nutrition Support: Vital HP at 55ml/hr with 150ml water flush q4h. Kcal 1,320 Protein (gm) 116 Fluid (mL) 1,104 Goal #1 TF tolerance Goal #2 TF to meet 65-70% energy and 90-100% pro needs Anticipated Discharge Needs: Unable to determine at this time Follow-Up By: 12/12/18 Additional Comments Follow TF tolerance, Na level and need to change flush
[2018-12-11] MEDS: PEPCID PO SCH ×2 (09:21→22:09)
[2018-12-11] MEDS: PLETAL PO SCH ×2 (09:22→22:08)
[2018-12-11] MEDS: LOVENOX SUB-Q SCH ×2 (09:22→22:08)
[2018-12-11] MEDS: CORDARONE PO SCH (09:22)
[2018-12-11] MEDS: LASIX PO SCH (09:22)
[2018-12-11] MEDS: ASPIRIN PO SCH (09:22)
--- NOTE | 2018-12-11 11:28 | Progress Note ---
Assessment and Plan Acute respiratory failure Extensive airspace disease on CT Leukocytosis Cardiopulmonary arrest Vfib requiring cardioversion in the ER MPI 09/16/2018 - normal Echo 09/16/2018 - normal LVEF Echo 12/02/2018- LVEF 30-35% Abnormal troponin likely type II MO post Vfib and electrical shock Echo this admission is showing significant deterioration in LVEF from 09/2018 Paroxysmal Atrial fibrillation, new onset currently in sinus rhythm Right common femoral vein DVT - new diagnosis this admission on lovenox Systemic Hypertension Peripheral vascular disease on cilostazol Hyperlipidemia Former smoker (quit in 2011) Morbid obesity Marijuana use Non-compliance with meds Plan: Continue amiodarone and metoprolol for suppression of paroxysmal Afib. Medical therapy for dilated cardiomyopathy as tolerated. We will plan for a left heart catheterization in the next 24-48hrs. Subjective Date of service: 12/11/18 Principal diagnosis: Ac hypoxemic resp failure; ARDS; Septic Shock; DVT; Cardiac arrest Interval history: Now extubated. No distress noted. Stable sinus rhythm on telemetry. Objective Vital Signs Temp Pulse Pulse Pulse Resp Resp BP 12/11/18 10:00 71 22 144/60 12/11/18 09:30 88 19 130/58 12/11/18 09:26 81 130/58 12/11/18 09:08 12/11/18 09:00 67 31 H 124/59 12/11/18 08:30 65 29 H 124/59 12/11/18 08:11 60 12/11/18 08:00 98.1 F 72 85 72 29 H 20 129/70 12/11/18 07:30 69 32 H 129/70 12/11/18 07:00 70 33 H 132/68 12/11/18 06:30 75 31 H 129/70 12/11/18 06:00 72 29 H 129/70 12/11/18 05:30 76 30 H 110/65 12/11/18 05:00 77 30 H 110/65 12/11/18 04:36 80 86/57 12/11/18 04:31 80 33 H 86/57 12/11/18 04:01 76 31 H 120/62 12/11/18 04:00 77 77 31 H 12/11/18 03:44 99 F 12/11/18 03:31 80 24 86/57 12/11/18 03:01 84 21 146/74 12/11/18 02:31 75 12 146/74 12/11/18 02:24 78 19 12/11/18 02:14 74 18 12/11/18 02:01 75 33 H 146/74 12/11/18 01:31 74 30 H 126/59 12/11/18 01:00 66 30 H 126/59 12/11/18 00:31 68 34 H 126/60 12/11/18 00:00 72 71 30 H 146/71 12/10/18 23:31 67 20 145/62 12/10/18 23:28 99.1 F 12/10/18 23:17 82 146/71 12/10/18 23:01 80 35 H 146/71 12/10/18 22:31 76 31 H 145/62 12/10/18 22:01 75 33 H 145/62 12/10/18 21:31 83 38 H 150/63 12/10/18 21:01 82 36 H 151/61 12/10/18 20:31 84 22 150/63 12/10/18 20:01 79 29 H 150/63 12/10/18 20:00 99.4 F 74 74 28 H 12/10/18 19:45 12/10/18 19:31 81 17 140/68 12/10/18 19:30 78 19 12/10/18 19:10 76 18 12/10/18 19:07 92 H 18 140/68 12/10/18 19:01 94 H 28 H 140/68 12/10/18 18:31 93 H 23 147/72 12/10/18 18:01 89 30 H 147/72 12/10/18 17:52 12/10/18 17:48 98.1 F 12/10/18 17:31 84 20 147/72 12/10/18 17:01 82 23 147/72 12/10/18 16:31 87 21 147/72 12/10/18 16:01 89 25 H 131/61 12/10/18 16:00 98.5 F 97 H 85 126/76 12/10/18 15:31 82 22 131/61 12/10/18 15:01 81 28 H 136/67 12/10/18 14:31 76 28 H 136/67 12/10/18 14:20 83 30 H 136/77 12/10/18 14:19 81 18 12/10/18 14:01 80 22 133/73 12/10/18 13:31 78 28 H 133/73 12/10/18 13:01 84 19 133/72 12/10/18 12:31 82 29 H 133/72 12/10/18 12:01 80 29 H 133/72 12/10/18 12:00 98.2 F 80 81 12/10/18 11:31 73 28 H 121/57 Pulse Ox 12/11/18 10:00 90 12/11/18 09:30 93 12/11/18 09:26 12/11/18 09:08 99 12/11/18 09:00 99 12/11/18 08:30 99 12/11/18 08:11 12/11/18 08:00 99 12/11/18 07:30 89 12/11/18 07:00 85 12/11/18 06:30 95 12/11/18 06:00 95 12/11/18 05:30 97 12/11/18 05:00 93 12/11/18 04:36 12/11/18 04:31 96 12/11/18 04:01 94 12/11/18 04:00 95 12/11/18 03:44 12/11/18 03:31 12/11/18 03:01 12/11/18 02:31 12/11/18 02:24 12/11/18 02:14 12/11/18 02:01 92 12/11/18 01:31 96 12/11/18 01:00 93 12/11/18 00:31 95 12/11/18 00:00 95 12/10/18 23:31 97 12/10/18 23:28 12/10/18 23:17 12/10/18 23:01 93 12/10/18 22:31 97 12/10/18 22:01 96 12/10/18 21:31 96 12/10/18 21:01 96 12/10/18 20:31 95 12/10/18 20:01 96 12/10/18 20:00 96 12/10/18 19:45 94 12/10/18 19:31 99 12/10/18 19:30 12/10/18 19:10 12/10/18 19:07 96 12/10/18 19:01 94 12/10/18 18:31 94 12/10/18 18:01 87 12/10/18 17:52 93 12/10/18 17:48 12/10/18 17:31 89 12/10/18 17:01 100 12/10/18 16:31 99 12/10/18 16:01 94 12/10/18 16:00 96 12/10/18 15:31 99 12/10/18 15:01 96 12/10/18 14:31 99 12/10/18 14:20 98 12/10/18 14:19 12/10/18 14:01 97 12/10/18 13:31 100 12/10/18 13:01 97 12/10/18 12:31 99 12/10/18 12:01 97 12/10/18 12:00 99 12/10/18 11:31 99 - Physical Examination General: No Apparent Distress HEENT: Positive: PERRL Cardiac: Positive: Reg Rate and Rhythm Neuro: Positive: Grossly Intact - Labs and Meds CBC 12/11/18 Range/Units 04:45 WBC 30.8 H (4.5-11.0) K/mm3 RBC 3.38 L (3.65-5.03) M/mm3 Hgb 8.9 L (10.1-14.3) gm/dl Hct 27.9 L (30.3-42.9) % Plt Count 465 H (140-440) K/mm3 Comprehensive Metabolic Panel 12/11/18 Range/Units 04:45 Sodium 146 H (137-145) mmol/L Potassium 3.7 (3.6-5.0) mmol/L Chloride 107.6 H (98-107) mmol/L Carbon Dioxide 30 (22-30) mmol/L BUN 25 H (7-17) mg/dL Creatinine 0.6 L (0.7-1.2) mg/dL Glucose 116 H (65-100) mg/dL Calcium 8.6 (8.4-10.2) mg/dL - Imaging and Cardiology EKG: image reviewed - Allied health notes Allied health notes reviewed: RT
--- NOTE | 2018-12-11 12:13 | Progress Note ---
Assessment and Plan Acute hypoxemic respiratory failure,s/p mechanical ventilatory support. Acute respiratory distress syndrome. Severe sepsis with shock. Aspiration pneumonia. Status post cardiac arrest with return of spontaneous circulation. Obesity. Hypertension. Hyperlipidemia. History of peripheral vascular disease. Leukocytosis that is mild. Elevated D-dimer. Hypercapnic respiratory failure. Elevated serum troponins. Hypokalemia. Mild metabolic acidosis. Cardiomyopathy( EF 30-35%)- possible post cardiac arrest - PT/OT evaluate and treat -bedside swallow evaluation -wean FIO2 for O2 sats>90% -CXR and ABG prn - change therapeutic lovenox to NAOC -Increase free water flushes for hypernatremia - 2D ECHO report noted (EF 30-35%; no pulmonary HTN), will need follow up echocardiogram as outpatient - continue chronic disease med's per attending - continue bronchodilators with pulmonary hygiene per RT - continue empiric AB's, ID following - continue accuchecks with glycemic control per SSI for target blood glucose 140 - 180 mg/dL - Prevention of delirium, maintenance of sleep-wake cycle - continue other care per attending / other consultants OK to transfer to telemetry Discharge planning CONDITION: FAIR PROGNOSIS: FAIR CODE STATUS: FULL Discussed in ICU-IDT rounds Subjective Date of service: 12/11/18 Principal diagnosis: Ac hypoxemic resp failure; ARDS; Septic Shock; DVT; Cardiac arrest Interval history: Patient is seen today for: Acute hypoxemic respiratory failure; ARDS; Severe sepsis with shock; Aspiration pneumonia; Status post cardiac arrest with return of spontaneous circulation; Obesity.; Acute DVT Seen and examined at bedside; 24hour events reviewed; nursing and respiratory care staff consulted; no adverse overnight events reported to me;awake and alert; no fevers, no vomiting. Daughter visiting. Extubated, doing well Drinking water, denies any sore throat. Vitals, labs, medications, chart and imaging reviewed Objective Vital Signs - 12hr 12/11/18 12/11/18 12/11/18 00:31 01:00 01:31 Temperature Pulse Rate 68 66 74 Pulse Rate [ Bilateral Throughout] Pulse Rate [ From Monitor] Respiratory 34 H 30 H 30 H Rate Respiratory Rate [Bilateral Throughout] Blood Pressure 126/60 126/59 126/59 O2 Sat by Pulse 95 93 96 Oximetry 12/11/18 12/11/18 12/11/18 02:01 02:14 02:24 Temperature Pulse Rate 75 Pulse Rate [ 74 78 Bilateral Throughout] Pulse Rate [ From Monitor] Respiratory 33 H Rate Respiratory 18 19 Rate [Bilateral Throughout] Blood Pressure 146/74 O2 Sat by Pulse 92 Oximetry 12/11/18 12/11/18 12/11/18 02:31 03:01 03:31 Temperature Pulse Rate 75 84 80 Pulse Rate [ Bilateral Throughout] Pulse Rate [ From Monitor] Respiratory 12 21 24 Rate Respiratory Rate [Bilateral Throughout] Blood Pressure 146/74 146/74 86/57 O2 Sat by Pulse Oximetry 12/11/18 12/11/18 12/11/18 03:44 04:00 04:01 Temperature 99 F Pulse Rate 77 76 Pulse Rate [ Bilateral Throughout] Pulse Rate [ 77 From Monitor] Respiratory 31 H 31 H Rate Respiratory Rate [Bilateral Throughout] Blood Pressure 120/62 O2 Sat by Pulse 95 94 Oximetry 12/11/18 12/11/18 12/11/18 04:31 04:36 05:00 Temperature Pulse Rate 80 80 77 Pulse Rate [ Bilateral Throughout] Pulse Rate [ From Monitor] Respiratory 33 H 30 H Rate Respiratory Rate [Bilateral Throughout] Blood Pressure 86/57 86/57 110/65 O2 Sat by Pulse 96 93 Oximetry 12/11/18 12/11/18 12/11/18 05:30 06:00 06:30 Temperature Pulse Rate 76 72 75 Pulse Rate [ Bilateral Throughout] Pulse Rate [ From Monitor] Respiratory 30 H 29 H 31 H Rate Respiratory Rate [Bilateral Throughout] Blood Pressure 110/65 129/70 129/70 O2 Sat by Pulse 97 95 95 Oximetry 12/11/18 12/11/18 12/11/18 07:00 07:30 08:00 Temperature 98.1 F Pulse Rate 70 69 72 Pulse Rate [ 85 Bilateral Throughout] Pulse Rate [ 72 From Monitor] Respiratory 33 H 32 H 29 H Rate Respiratory 20 Rate [Bilateral Throughout] Blood Pressure 132/68 129/70 129/70 O2 Sat by Pulse 85 89 99 Oximetry 12/11/18 12/11/18 12/11/18 08:11 08:30 09:00 Temperature Pulse Rate 60 65 67 Pulse Rate [ Bilateral Throughout] Pulse Rate [ From Monitor] Respiratory 29 H 31 H Rate Respiratory Rate [Bilateral Throughout] Blood Pressure 124/59 124/59 O2 Sat by Pulse 99 99 Oximetry 08/05/19 08/05/19 08/05/19 09:08 09:26 09:30 Temperature Pulse Rate 81 88 Pulse Rate [ Bilateral Throughout] Pulse Rate [ From Monitor] Respiratory 19 Rate Respiratory Rate [Bilateral Throughout] Blood Pressure 130/58 130/58 O2 Sat by Pulse 99 93 Oximetry 12/11/18 10:00 Temperature Pulse Rate 71 Pulse Rate [ Bilateral Throughout] Pulse Rate [ From Monitor] Respiratory 22 Rate Respiratory Rate [Bilateral Throughout] Blood Pressure 144/60 O2 Sat by Pulse 90 Oximetry Constitutional: no acute distress, alert, other (obese) Eyes: non-icteric ENT: oropharynx moist Neck: supple, no lymphadenopathy, no JVD, other (large neck circumference) Effort: normal Ascultation: Bilateral: clear, diminished breath sounds, rales Percussion: Bilateral: not dull Cardiovascular: regular rate and rhythm, other (no R/M) Gastrointestinal: normoactive bowel sounds, soft, non-tender, non-distended, other (No HSM) Integumentary: normal Extremities: no cyanosis, pulses normal, no ischemia or petechiae Neurologic: normal mental status, non-focal exam (moves al extremities to painful stimuli), pupils equal and round, motor strength normal and Psychiatric: mood appropriate, affect normal CBC and BMP: 12/11/18 04:45 12/11/18 04:45 ABG, PT/INR, D-dimer: ABG POC ABG pH 7.445 (7.35-7.45) 12/10/18 16:54 POC ABG pCO2 42.2 (35-45) 12/10/18 16:54 POC ABG pO2 95 (80-105) 12/10/18 16:54 POC ABG HCO3 29.0 (22-26 mml/L) 12/10/18 16:54 POC ABG Total CO2 30 (23-27mmol/L) 12/10/18 16:54 POC ABG O2 Sat 98 12/10/18 16:54 PT/INR, D-dimer PT 14.4 Sec. (12.2-14.9) 12/02/18 10:50 INR 1.15 (0.87-1.13) H 12/02/18 10:50 1085.94 ng/mlDDU (0-234) H 12/02/18 00:30 Abnormal lab findings: Abnormal Labs 12/02/18 12/02/1819 00:30 00:30 00:30 WBC 11.6 H RBC Hgb Hct MCH RDW 18.1 H Plt Count Seg Neuts % (Manual) 35.0 L Lymphocytes % (Manual) 41.0 H Monocytes % (Manual) 11.0 H Eosinophils % (Manual) 6.0 H Basophils % (Manual) Nucleated RBC % Seg Neutrophils # Seg Neutrophils # Man Lymphocytes # (Manual) Monocytes # (Manual) 1.3 H Eosinophils # (Manual) 0.7 H Basophils # (Manual) INR D-Dimer 1085.94 H Heparin Anti-Xa Level POC ABG pH POC ABG pCO2 POC ABG pO2 Sodium Potassium 3.1 L Chloride Carbon Dioxide 21 L BUN 20 H Creatinine Glucose 222 H POC Glucose Lactic Acid Calcium Phosphorus Magnesium AST Total Creatine Kinase CK-MB (CK-2) CK-MB (CK-2) Rel Index Troponin T C-Reactive Protein Albumin Triglycerides LDL Cholesterol Direct HDL Cholesterol Urine WBC (Auto) 12/02/18 12/02/18 12/02/18 01:26 02:58 03:14 WBC RBC Hgb Hct MCH RDW Plt Count Seg Neuts % (Manual) Lymphocytes % (Manual) Monocytes % (Manual) Eosinophils % (Manual) Basophils % (Manual) Nucleated RBC % Seg Neutrophils # Seg Neutrophils # Man Lymphocytes # (Manual) Monocytes # (Manual) Eosinophils # (Manual) Basophils # (Manual) INR D-Dimer Heparin Anti-Xa Level POC ABG pH 7.212 L POC ABG pCO2 55.1 H POC ABG pO2 121 H Sodium Potassium Chloride Carbon Dioxide BUN Creatinine Glucose POC Glucose Lactic Acid Calcium Phosphorus Magnesium AST Total Creatine Kinase CK-MB (CK-2) CK-MB (CK-2) Rel Index Troponin T 0.054 H D C-Reactive Protein Albumin Triglycerides 358 H LDL Cholesterol Direct 42 L HDL Cholesterol 29 L Urine WBC (Auto) 12.0 H 12/02/18 12/02/18 12/02/18 04:52 05:26 06:19 WBC RBC Hgb Hct MCH RDW Plt Count Seg Neuts % (Manual) Lymphocytes % (Manual) Monocytes % (Manual) Eosinophils % (Manual) Basophils % (Manual) Nucleated RBC % Seg Neutrophils # Seg Neutrophils # Man Lymphocytes # (Manual) Monocytes # (Manual) Eosinophils # (Manual) Basophils # (Manual) INR D-Dimer Heparin Anti-Xa Level POC ABG pH 7.217 L 7.155 L POC ABG pCO2 52.7 H 57.3 H POC ABG pO2 56 L 57 L Sodium Potassium Chloride Carbon Dioxide BUN Creatinine Glucose POC Glucose Lactic Acid Calcium Phosphorus Magnesium AST Total Creatine Kinase 224 H CK-MB (CK-2) 30.7 H CK-MB (CK-2) Rel Index 13.7 H Troponin T 0.227 H* D C-Reactive Protein Albumin Triglycerides LDL Cholesterol Direct HDL Cholesterol Urine WBC (Auto) 12/02/18 12/02/18 12/02/18 07:52 10:50 10:50 WBC RBC Hgb Hct MCH RDW Plt Count Seg Neuts % (Manual) Lymphocytes % (Manual) Monocytes % (Manual) Eosinophils % (Manual) Basophils % (Manual) Nucleated RBC % Seg Neutrophils # Seg Neutrophils # Man Lymphocytes # (Manual) Monocytes # (Manual) Eosinophils # (Manual) Basophils # (Manual) INR D-Dimer Heparin Anti-Xa Level POC ABG pH 7.150 L POC ABG pCO2 56.3 H POC ABG pO2 53 L Sodium Potassium Chloride Carbon Dioxide BUN Creatinine Glucose POC Glucose Lactic Acid Calcium Phosphorus Magnesium AST Total Creatine Kinase 1322 H CK-MB (CK-2) 216.7 H CK-MB (CK-2) Rel Index 16.3 H Troponin T 0.871 H* D C-Reactive Protein 4.30 H Albumin Triglycerides LDL Cholesterol Direct HDL Cholesterol Urine WBC (Auto) 12/02/18 12/02/18 12/02/18 10:50 10:50 17:46 WBC RBC Hgb Hct MCH RDW Plt Count Seg Neuts % (Manual) Lymphocytes % (Manual) Monocytes % (Manual) Eosinophils % (Manual) Basophils % (Manual) Nucleated RBC % Seg Neutrophils # Seg Neutrophils # Man Lymphocytes # (Manual) Monocytes # (Manual) Eosinophils # (Manual) Basophils # (Manual) INR 1.15 H D-Dimer Heparin Anti-Xa Level POC ABG pH POC ABG pCO2 POC ABG pO2 Sodium Potassium Chloride Carbon Dioxide BUN Creatinine Glucose POC Glucose 135 H Lactic Acid 5.90 H* Calcium Phosphorus Magnesium AST Total Creatine Kinase CK-MB (CK-2) CK-MB (CK-2) Rel Index Troponin T C-Reactive Protein Albumin Triglycerides LDL Cholesterol Direct HDL Cholesterol Urine WBC (Auto) 12/02/18 12/02/18 12/03/18 18:09 20:18 01:47 WBC RBC Hgb Hct MCH RDW Plt Count Seg Neuts % (Manual) Lymphocytes % (Manual) Monocytes % (Manual) Eosinophils % (Manual) Basophils % (Manual) Nucleated RBC % Seg Neutrophils # Seg Neutrophils # Man Lymphocytes # (Manual) Monocytes # (Manual) Eosinophils # (Manual) Basophils # (Manual) INR D-Dimer Heparin Anti-Xa Level < 0.10 L POC ABG pH 7.167 L 7.118 L POC ABG pCO2 52.6 H 55.1 H POC ABG pO2 79 L Sodium Potassium Chloride Carbon Dioxide BUN Creatinine Glucose POC Glucose Lactic Acid Calcium Phosphorus Magnesium AST Total Creatine Kinase CK-MB (CK-2) CK-MB (CK-2) Rel Index Troponin T C-Reactive Protein Albumin Triglycerides LDL Cholesterol Direct HDL Cholesterol Urine WBC (Auto) 12/03/18 12/03/18 12/03/18 04:07 04:07 06:30 WBC 26.3 H RBC Hgb Hct MCH RDW 15.9 H Plt Count Seg Neuts % (Manual) 76.0 H Lymphocytes % (Manual) 6.0 L Monocytes % (Manual) Eosinophils % (Manual) Basophils % (Manual) Nucleated RBC % Seg Neutrophils # 24.3 H Seg Neutrophils # Man 20.0 H Lymphocytes # (Manual) Monocytes # (Manual) Eosinophils # (Manual) Basophils # (Manual) INR D-Dimer Heparin Anti-Xa Level POC ABG pH 7.326 L POC ABG pCO2 POC ABG pO2 290 H Sodium Potassium 3.5 L Chloride Carbon Dioxide 21 L BUN 19 H Creatinine Glucose 252 H POC Glucose Lactic Acid Calcium 6.7 L D Phosphorus Magnesium AST Total Creatine Kinase CK-MB (CK-2) CK-MB (CK-2) Rel Index Troponin T C-Reactive Protein Albumin Triglycerides LDL Cholesterol Direct HDL Cholesterol Urine WBC (Auto) 12/03/18 12/03/18 12/03/18 09:07 09:07 09:07 WBC RBC Hgb Hct MCH RDW Plt Count Seg Neuts % (Manual) Lymphocytes % (Manual) Monocytes % (Manual) Eosinophils % (Manual) Basophils % (Manual) Nucleated RBC % Seg Neutrophils # Seg Neutrophils # Man Lymphocytes # (Manual) Monocytes # (Manual) Eosinophils # (Manual) Basophils # (Manual) INR D-Dimer Heparin Anti-Xa Level < 0.10 L POC ABG pH POC ABG pCO2 POC ABG pO2 Sodium Potassium Chloride Carbon Dioxide BUN Creatinine Glucose POC Glucose Lactic Acid 2.90 H* Calcium Phosphorus Magnesium 1.20 L AST Total Creatine Kinase CK-MB (CK-2) CK-MB (CK-2) Rel Index Troponin T C-Reactive Protein Albumin Triglycerides LDL Cholesterol Direct HDL Cholesterol Urine WBC (Auto) 12/03/18 12/03/18 12/04/18 11:51 18:11 05:16 WBC RBC Hgb Hct MCH RDW Plt Count Seg Neuts % (Manual) Lymphocytes % (Manual) Monocytes % (Manual) Eosinophils % (Manual) Basophils % (Manual) Nucleated RBC % Seg Neutrophils # Seg Neutrophils # Man Lymphocytes # (Manual) Monocytes # (Manual) Eosinophils # (Manual) Basophils # (Manual) INR D-Dimer Heparin Anti-Xa Level POC ABG pH 7.464 H POC ABG pCO2 33.7 L POC ABG pO2 Sodium Potassium Chloride Carbon Dioxide BUN Creatinine Glucose POC Glucose 158 H 129 H Lactic Acid Calcium Phosphorus Magnesium AST Total Creatine Kinase CK-MB (CK-2) CK-MB (CK-2) Rel Index Troponin T C-Reactive Protein Albumin Triglycerides LDL Cholesterol Direct HDL Cholesterol Urine WBC (Auto) 12/04/18 12/04/18 12/04/18 05:23 05:23 05:23 WBC 23.7 H RBC 3.04 L Hgb 8.3 L Hct 25.2 L D MCH 27 L RDW 16.0 H Plt Count Seg Neuts % (Manual) 97.0 H Lymphocytes % (Manual) 1.0 L Monocytes % (Manual) Eosinophils % (Manual) Basophils % (Manual) Nucleated RBC % Seg Neutrophils # Seg Neutrophils # Man 23.0 H Lymphocytes # (Manual) 0.2 L Monocytes # (Manual) Eosinophils # (Manual) Basophils # (Manual) INR D-Dimer Heparin Anti-Xa Level POC ABG pH POC ABG pCO2 POC ABG pO2 Sodium 136 L Potassium 2.5 L* D Chloride 92.9 L Carbon Dioxide 36 H D BUN Creatinine Glucose 528 H* POC Glucose Lactic Acid 2.20 H* Calcium 6.0 L Phosphorus Magnesium AST Total Creatine Kinase CK-MB (CK-2) CK-MB (CK-2) Rel Index Troponin T C-Reactive Protein Albumin Triglycerides LDL Cholesterol Direct HDL Cholesterol Urine WBC (Auto) 12/04/18 12/04/18 12/04/18 05:23 08:03 08:03 WBC RBC Hgb Hct MCH RDW Plt Count Seg Neuts % (Manual) Lymphocytes % (Manual) Monocytes % (Manual) Eosinophils % (Manual) Basophils % (Manual) Nucleated RBC % Seg Neutrophils # Seg Neutrophils # Man Lymphocytes # (Manual) Monocytes # (Manual) Eosinophils # (Manual) Basophils # (Manual) INR D-Dimer Heparin Anti-Xa Level POC ABG pH POC ABG pCO2 POC ABG pO2 Sodium Potassium Chloride Carbon Dioxide BUN Creatinine Glucose POC Glucose Lactic Acid 2.90 H* Calcium Phosphorus Magnesium 1.40 L AST Total Creatine Kinase CK-MB (CK-2) CK-MB (CK-2) Rel Index Troponin T C-Reactive Protein 32.60 H Albumin Triglycerides LDL Cholesterol Direct HDL Cholesterol Urine WBC (Auto) 12/04/18 12/04/18 12/04/18 12:20 12:24 12:53 WBC RBC Hgb Hct MCH RDW Plt Count Seg Neuts % (Manual) Lymphocytes % (Manual) Monocytes % (Manual) Eosinophils % (Manual) Basophils % (Manual) Nucleated RBC % Seg Neutrophils # Seg Neutrophils # Man Lymphocytes # (Manual) Monocytes # (Manual) Eosinophils # (Manual) Basophils # (Manual) INR D-Dimer Heparin Anti-Xa Level POC ABG pH POC ABG pCO2 POC ABG pO2 Sodium Potassium 3.2 L D Chloride Carbon Dioxide BUN Creatinine Glucose 170 H POC Glucose 52 L 54 L Lactic Acid Calcium 6.7 L Phosphorus Magnesium AST Total Creatine Kinase CK-MB (CK-2) CK-MB (CK-2) Rel Index Troponin T C-Reactive Protein Albumin Triglycerides LDL Cholesterol Direct HDL Cholesterol Urine WBC (Auto) 12/04/18 12/05/18 12/05/18 13:06 05:22 05:22 WBC 26.1 H RBC 3.61 L Hgb 9.7 L Hct 30.1 L MCH 27 L RDW 16.5 H Plt Count Seg Neuts % (Manual) Lymphocytes % (Manual) Monocytes % (Manual) Eosinophils % (Manual) Basophils % (Manual) Nucleated RBC % Seg Neutrophils # Seg Neutrophils # Man Lymphocytes # (Manual) Monocytes # (Manual) Eosinophils # (Manual) Basophils # (Manual) INR D-Dimer Heparin Anti-Xa Level POC ABG pH POC ABG pCO2 POC ABG pO2 Sodium Potassium Chloride 113.9 H Carbon Dioxide BUN Creatinine Glucose POC Glucose 171 H Lactic Acid Calcium 7.8 L D Phosphorus Magnesium 2.50 H AST Total Creatine Kinase CK-MB (CK-2) CK-MB (CK-2) Rel Index Troponin T C-Reactive Protein Albumin Triglycerides LDL Cholesterol Direct HDL Cholesterol Urine WBC (Auto) 12/05/18 12/05/18 12/06/18 05:49 21:04 04:36 WBC 22.6 H RBC 3.62 L Hgb 9.9 L Hct 30.0 L MCH 27 L RDW 16.4 H Plt Count Seg Neuts % (Manual) 90.0 H Lymphocytes % (Manual) 6.0 L Monocytes % (Manual) Eosinophils % (Manual) Basophils % (Manual) Nucleated RBC % Seg Neutrophils # Seg Neutrophils # Man 20.3 H Lymphocytes # (Manual) Monocytes # (Manual) Eosinophils # (Manual) Basophils # (Manual) INR D-Dimer Heparin Anti-Xa Level 0.14 L POC ABG pH 7.315 L POC ABG pCO2 POC ABG pO2 Sodium Potassium Chloride Carbon Dioxide BUN Creatinine Glucose POC Glucose Lactic Acid Calcium Phosphorus Magnesium AST Total Creatine Kinase CK-MB (CK-2) CK-MB (CK-2) Rel Index Troponin T C-Reactive Protein Albumin Triglycerides LDL Cholesterol Direct HDL Cholesterol Urine WBC (Auto) 12/06/18 12/06/18 12/06/18 04:36 04:36 05:37 WBC RBC Hgb Hct MCH RDW Plt Count Seg Neuts % (Manual) Lymphocytes % (Manual) Monocytes % (Manual) Eosinophils % (Manual) Basophils % (Manual) Nucleated RBC % Seg Neutrophils # Seg Neutrophils # Man Lymphocytes # (Manual) Monocytes # (Manual) Eosinophils # (Manual) Basophils # (Manual) INR D-Dimer Heparin Anti-Xa Level < 0.10 L POC ABG pH POC ABG pCO2 POC ABG pO2 Sodium Potassium Chloride 111.6 H Carbon Dioxide BUN Creatinine Glucose 114 H POC Glucose 121 H Lactic Acid Calcium 8.0 L Phosphorus Magnesium AST 41 H Total Creatine Kinase CK-MB (CK-2) CK-MB (CK-2) Rel Index Troponin T C-Reactive Protein Albumin 2.3 L Triglycerides LDL Cholesterol Direct HDL Cholesterol Urine WBC (Auto) 12/06/18 12/06/18 12/06/18 11:46 14:15 18:34 WBC RBC Hgb Hct MCH RDW Plt Count Seg Neuts % (Manual) Lymphocytes % (Manual) Monocytes % (Manual) Eosinophils % (Manual) Basophils % (Manual) Nucleated RBC % Seg Neutrophils # Seg Neutrophils # Man Lymphocytes # (Manual) Monocytes # (Manual) Eosinophils # (Manual) Basophils # (Manual) INR D-Dimer Heparin Anti-Xa Level 1.22 H POC ABG pH POC ABG pCO2 POC ABG pO2 Sodium Potassium Chloride Carbon Dioxide BUN Creatinine Glucose POC Glucose 122 H 110 H Lactic Acid Calcium Phosphorus Magnesium AST Total Creatine Kinase CK-MB (CK-2) CK-MB (CK-2) Rel Index Troponin T C-Reactive Protein Albumin Triglycerides LDL Cholesterol Direct HDL Cholesterol Urine WBC (Auto) 12/06/18 12/06/18 12/07/18 23:00 23:11 03:23 WBC RBC Hgb Hct MCH RDW Plt Count Seg Neuts % (Manual) Lymphocytes % (Manual) Monocytes % (Manual) Eosinophils % (Manual) Basophils % (Manual) Nucleated RBC % Seg Neutrophils # Seg Neutrophils # Man Lymphocytes # (Manual) Monocytes # (Manual) Eosinophils # (Manual) Basophils # (Manual) INR D-Dimer Heparin Anti-Xa Level 0.15 L POC ABG pH POC ABG pCO2 POC ABG pO2 60 L Sodium Potassium Chloride Carbon Dioxide BUN Creatinine Glucose POC Glucose 138 H Lactic Acid Calcium Phosphorus Magnesium AST Total Creatine Kinase CK-MB (CK-2) CK-MB (CK-2) Rel Index Troponin T C-Reactive Protein Albumin Triglycerides LDL Cholesterol Direct HDL Cholesterol Urine WBC (Auto) 12/07/18 12/07/18 12/07/18 04:45 04:45 05:47 WBC 16.6 H RBC 3.56 L Hgb 9.7 L Hct 29.4 L MCH 27 L RDW 15.9 H Plt Count Seg Neuts % (Manual) 86.0 H Lymphocytes % (Manual) 12.0 L Monocytes % (Manual) Eosinophils % (Manual) Basophils % (Manual) Nucleated RBC % Seg Neutrophils # Seg Neutrophils # Man 14.3 H Lymphocytes # (Manual) Monocytes # (Manual) Eosinophils # (Manual) Basophils # (Manual) INR D-Dimer Heparin Anti-Xa Level POC ABG pH POC ABG pCO2 POC ABG pO2 Sodium Potassium 3.2 L Chloride 107.6 H Carbon Dioxide BUN 20 H Creatinine Glucose 138 H POC Glucose 160 H Lactic Acid Calcium 8.0 L Phosphorus Magnesium AST Total Creatine Kinase CK-MB (CK-2) CK-MB (CK-2) Rel Index Troponin T C-Reactive Protein Albumin Triglycerides LDL Cholesterol Direct HDL Cholesterol Urine WBC (Auto) 12/07/18 12/07/18 12/07/18 06:45 09:14 12:46 WBC RBC Hgb Hct MCH RDW Plt Count Seg Neuts % (Manual) Lymphocytes % (Manual) Monocytes % (Manual) Eosinophils % (Manual) Basophils % (Manual) Nucleated RBC % Seg Neutrophils # Seg Neutrophils # Man Lymphocytes # (Manual) Monocytes # (Manual) Eosinophils # (Manual) Basophils # (Manual) INR D-Dimer Heparin Anti-Xa Level < 0.10 L POC ABG pH POC ABG pCO2 POC ABG pO2 Sodium Potassium Chloride Carbon Dioxide BUN Creatinine Glucose POC Glucose 129 H Lactic Acid Calcium Phosphorus 1.80 L Magnesium AST Total Creatine Kinase CK-MB (CK-2) CK-MB (CK-2) Rel Index Troponin T C-Reactive Protein Albumin Triglycerides LDL Cholesterol Direct HDL Cholesterol Urine WBC (Auto) 12/07/18 12/07/18 12/08/18 17:33 23:42 05:09 WBC RBC Hgb Hct MCH RDW Plt Count Seg Neuts % (Manual) Lymphocytes % (Manual) Monocytes % (Manual) Eosinophils % (Manual) Basophils % (Manual) Nucleated RBC % Seg Neutrophils # Seg Neutrophils # Man Lymphocytes # (Manual) Monocytes # (Manual) Eosinophils # (Manual) Basophils # (Manual) INR D-Dimer Heparin Anti-Xa Level POC ABG pH POC ABG pCO2 POC ABG pO2 Sodium Potassium Chloride Carbon Dioxide BUN Creatinine Glucose POC Glucose 131 H 141 H 151 H Lactic Acid Calcium Phosphorus Magnesium AST Total Creatine Kinase CK-MB (CK-2) CK-MB (CK-2) Rel Index Troponin T C-Reactive Protein Albumin Triglycerides LDL Cholesterol Direct HDL Cholesterol Urine WBC (Auto) 12/08/18 12/08/18 12/08/18 06:10 06:10 12:03 WBC 22.7 H RBC 3.50 L Hgb 9.4 L Hct 28.8 L MCH 27 L RDW 16.3 H Plt Count Seg Neuts % (Manual) Lymphocytes % (Manual) Monocytes % (Manual) Eosinophils % (Manual) 10.0 H Basophils % (Manual) Nucleated RBC % Seg Neutrophils # Seg Neutrophils # Man 14.1 H Lymphocytes # (Manual) 6.1 H Monocytes # (Manual) Eosinophils # (Manual) 2.3 H Basophils # (Manual) INR D-Dimer Heparin Anti-Xa Level POC ABG pH POC ABG pCO2 POC ABG pO2 Sodium Potassium 3.5 L Chloride 108.8 H Carbon Dioxide BUN 23 H Creatinine 0.6 L Glucose 140 H POC Glucose 119 H Lactic Acid Calcium 8.1 L Phosphorus Magnesium AST Total Creatine Kinase CK-MB (CK-2) CK-MB (CK-2) Rel Index Troponin T C-Reactive Protein Albumin Triglycerides LDL Cholesterol Direct HDL Cholesterol Urine WBC (Auto) 12/08/18 12/08/18 12/08/18 13:19 18:03 18:26 WBC RBC Hgb Hct MCH RDW Plt Count Seg Neuts % (Manual) Lymphocytes % (Manual) Monocytes % (Manual) Eosinophils % (Manual) Basophils % (Manual) Nucleated RBC % Seg Neutrophils # Seg Neutrophils # Man Lymphocytes # (Manual) Monocytes # (Manual) Eosinophils # (Manual) Basophils # (Manual) INR D-Dimer Heparin Anti-Xa Level POC ABG pH 7.466 H 7.467 H POC ABG pCO2 POC ABG pO2 71 L Sodium Potassium Chloride Carbon Dioxide BUN Creatinine Glucose POC Glucose 152 H Lactic Acid Calcium Phosphorus Magnesium AST Total Creatine Kinase CK-MB (CK-2) CK-MB (CK-2) Rel Index Troponin T C-Reactive Protein Albumin Triglycerides LDL Cholesterol Direct HDL Cholesterol Urine WBC (Auto) 12/08/18 12/09/18 12/09/18 23:21 04:45 04:45 WBC 27.6 H RBC 3.33 L Hgb 8.8 L Hct 27.4 L MCH 26 L RDW 15.9 H Plt Count Seg Neuts % (Manual) 74.0 H Lymphocytes % (Manual) Monocytes % (Manual) Eosinophils % (Manual) Basophils % (Manual) Nucleated RBC % 2.0 H Seg Neutrophils # Seg Neutrophils # Man 20.4 H Lymphocytes # (Manual) Monocytes # (Manual) Eosinophils # (Manual) 0.6 H Basophils # (Manual) INR D-Dimer Heparin Anti-Xa Level POC ABG pH POC ABG pCO2 POC ABG pO2 Sodium 148 H Potassium Chloride 108.7 H Carbon Dioxide BUN 24 H Creatinine Glucose 141 H POC Glucose 130 H Lactic Acid Calcium Phosphorus Magnesium AST Total Creatine Kinase CK-MB (CK-2) CK-MB (CK-2) Rel Index Troponin T C-Reactive Protein Albumin Triglycerides LDL Cholesterol Direct HDL Cholesterol Urine WBC (Auto) 12/09/18 12/09/18 12/09/18 05:18 06:27 12:52 WBC RBC Hgb Hct MCH RDW Plt Count Seg Neuts % (Manual) Lymphocytes % (Manual) Monocytes % (Manual) Eosinophils % (Manual) Basophils % (Manual) Nucleated RBC % Seg Neutrophils # Seg Neutrophils # Man Lymphocytes # (Manual) Monocytes # (Manual) Eosinophils # (Manual) Basophils # (Manual) INR D-Dimer Heparin Anti-Xa Level POC ABG pH 7.454 H POC ABG pCO2 POC ABG pO2 Sodium Potassium Chloride Carbon Dioxide BUN Creatinine Glucose POC Glucose 162 H 142 H Lactic Acid Calcium Phosphorus Magnesium AST Total Creatine Kinase CK-MB (CK-2) CK-MB (CK-2) Rel Index Troponin T C-Reactive Protein Albumin Triglycerides LDL Cholesterol Direct HDL Cholesterol Urine WBC (Auto) 12/09/18 12/09/18 12/10/18 18:27 23:54 04:09 WBC 33.7 H RBC 3.56 L Hgb 9.4 L Hct 29.1 L MCH 26 L RDW 15.8 H Plt Count Seg Neuts % (Manual) 78.0 H Lymphocytes % (Manual) Monocytes % (Manual) Eosinophils % (Manual) Basophils % (Manual) Nucleated RBC % Seg Neutrophils # Seg Neutrophils # Man 26.3 H Lymphocytes # (Manual) 6.1 H Monocytes # (Manual) Eosinophils # (Manual) Basophils # (Manual) INR D-Dimer Heparin Anti-Xa Level POC ABG pH POC ABG pCO2 POC ABG pO2 Sodium Potassium Chloride Carbon Dioxide BUN Creatinine Glucose POC Glucose 117 H 108 H Lactic Acid Calcium Phosphorus Magnesium AST Total Creatine Kinase CK-MB (CK-2) CK-MB (CK-2) Rel Index Troponin T C-Reactive Protein Albumin Triglycerides LDL Cholesterol Direct HDL Cholesterol Urine WBC (Auto) 12/10/18 12/10/18 12/10/18 04:09 04:57 12:15 WBC RBC Hgb Hct MCH RDW Plt Count Seg Neuts % (Manual) Lymphocytes % (Manual) Monocytes % (Manual) Eosinophils % (Manual) Basophils % (Manual) Nucleated RBC % Seg Neutrophils # Seg Neutrophils # Man Lymphocytes # (Manual) Monocytes # (Manual) Eosinophils # (Manual) Basophils # (Manual) INR D-Dimer Heparin Anti-Xa Level POC ABG pH POC ABG pCO2 POC ABG pO2 Sodium 149 H Potassium Chloride 110.5 H Carbon Dioxide 31 H BUN 28 H Creatinine Glucose 129 H POC Glucose 120 H 118 H Lactic Acid Calcium Phosphorus Magnesium AST Total Creatine Kinase CK-MB (CK-2) CK-MB (CK-2) Rel Index Troponin T C-Reactive Protein Albumin Triglycerides LDL Cholesterol Direct HDL Cholesterol Urine WBC (Auto) 12/11/18 12/11/18 12/11/18 00:03 04:45 04:45 WBC 30.8 H RBC 3.38 L Hgb 8.9 L Hct 27.9 L MCH 26 L RDW 15.9 H Plt Count 465 H Seg Neuts % (Manual) 86.0 H Lymphocytes % (Manual) 8.0 L Monocytes % (Manual) Eosinophils % (Manual) Basophils % (Manual) 2.0 H Nucleated RBC % Seg Neutrophils # Seg Neutrophils # Man 26.5 H Lymphocytes # (Manual) Monocytes # (Manual) Eosinophils # (Manual) 0.6 H Basophils # (Manual) 0.6 H INR D-Dimer Heparin Anti-Xa Level POC ABG pH POC ABG pCO2 POC ABG pO2 Sodium 146 H Potassium Chloride 107.6 H Carbon Dioxide BUN 25 H Creatinine 0.6 L Glucose 116 H POC Glucose 111 H Lactic Acid Calcium Phosphorus Magnesium AST Total Creatine Kinase CK-MB (CK-2) CK-MB (CK-2) Rel Index Troponin T C-Reactive Protein Albumin Triglycerides LDL Cholesterol Direct HDL Cholesterol Urine WBC (Auto) 12/11/18 05:07 WBC RBC Hgb Hct MCH RDW Plt Count Seg Neuts % (Manual) Lymphocytes % (Manual) Monocytes % (Manual) Eosinophils % (Manual) Basophils % (Manual) Nucleated RBC % Seg Neutrophils # Seg Neutrophils # Man Lymphocytes # (Manual) Monocytes # (Manual) Eosinophils # (Manual) Basophils # (Manual) INR D-Dimer Heparin Anti-Xa Level POC ABG pH POC ABG pCO2 POC ABG pO2 Sodium Potassium Chloride Carbon Dioxide BUN Creatinine Glucose POC Glucose 106 H Lactic Acid Calcium Phosphorus Magnesium AST Total Creatine Kinase CK-MB (CK-2) CK-MB (CK-2) Rel Index Troponin T C-Reactive Protein Albumin Triglycerides LDL Cholesterol Direct HDL Cholesterol Urine WBC (Auto) Allied health notes reviewed: RT
--- NOTE | 2018-12-11 12:19 | Progress Note ---
Assessment and Plan Cultures: 12/02/2018 sputum culture: Usual respiratory nolan 12/02/2018 urine culture: No growth 12/02/2018 blood culture: No growth A/P: 53-year-old female with hypertension, hyperlipidemia, peripheral vascular disease presented to the emergency room on 12/02/2018 with complaints of chest pain, developed V.fib arrest, now with: 1) Shock, multifactorial: Cardiogenic versus septic. Patient with V. fib arrest. Developed bilateral aspiration pneumonia vs pneumonitis. Now alert, oriented, extubated. 2) Bilateral airspace disease with concern for pneumonia with acute respiratory failure: CXR and CT chest showed bilateral airspace disease. Noted to have gastric content aspiration on admission. Empirically treat with IV cefepime and Flagyl. Cultures negative. 3) Mixed acidosis: on admission. Lactate remains elevated. 4) V.fib arrest: cardiology following. EF 30-35%. 5) Leukocytosis - unclear etiology, as patient clinically improving. Recs: Now D8 of cefepime and Flagyl. Would stop antibiotics and monitor Thank you for involving us in the care of Ms. Tarango. We will continue to follow with you. Luis Earl MD [facility] C: [phone] O: [phone] F: [phone] Subjective Principal diagnosis: Ac hypoxemic resp failure; ARDS; Septic Shock; DVT; Cardiac arrest Interval history: Extubated over the weekend, feels voice is improving and otherwise feels well. No cough or fevers at the present time. Objective - Exam Narrative Exam: Constitutional: awake, no distress, following commands Head, Ears, Nose: Normocephalic, atraumatic. External ears, NG tube in place Eyes: Conjunctivae/corneas clear. No icterus. No ptosis. Neck: Supple, no meningeal signs Oral: moist mucous membranes, fair dentition Cardiovascular: S1, S2 normal. Normal rhythm Respiratory: Good air entry, clear to auscultation bilaterally GI: Soft, non-tender; bowel sounds normal. No peritoneal signs Musculoskeletal: RLE edema 2+ Skin: No rash or abscess Hem/Lymphatic: No palpable cervical or supraclavicular nodes. No lymphangitis Psych: no agitation Neurological: Moves all extremities, no focal defects - Constitutional Vitals: Vital Signs Temp Pulse Resp BP Pulse Ox 98.1 F 71 22 144/60 90 12/11/18 08:00 12/11/18 10:00 12/11/18 10:00 12/11/18 10:00 12/11/18 10:00 Temperature -Last 24 Hours Temperature 98.1 F Temperature 99 F Temperature 99.1 F Temperature 99.4 F Temperature 98.1 F Temperature 98.5 F - Labs CBC & Chem 7: 12/11/18 04:45 12/11/18 04:45 Labs: Abnormal lab results 12/11/18 12/11/18 12/11/18 Range/Units 00:03 04:45 04:45 WBC 30.8 H (4.5-11.0) K/mm3 RBC 3.38 L (3.65-5.03) M/mm3 Hgb 8.9 L (10.1-14.3) gm/dl Hct 27.9 L (30.3-42.9) % MCH 26 L (28-32) pg RDW 15.9 H (13.2-15.2) % Plt Count 465 H (140-440) K/mm3 Seg Neuts % (Manual) 86.0 H (40.0-70.0) % Lymphocytes % (Manual) 8.0 L (13.4-35.0) % Basophils % (Manual) 2.0 H (0.0-1.8) % Seg Neutrophils # Man 26.5 H (1.8-7.7) K/mm3 Eosinophils # (Manual) 0.6 H (0.0-0.4) K/mm3 Basophils # (Manual) 0.6 H (0.0-0.1) K/mm3 Sodium 146 H (137-145) mmol/L Chloride 107.6 H (98-107) mmol/L BUN 25 H (7-17) mg/dL Creatinine 0.6 L (0.7-1.2) mg/dL Glucose 116 H (65-100) mg/dL POC Glucose 111 H (70-105) 12/11/18 Range/Units 05:07 WBC (4.5-11.0) K/mm3 RBC (3.65-5.03) M/mm3 Hgb (10.1-14.3) gm/dl Hct (30.3-42.9) % MCH (28-32) pg RDW (13.2-15.2) % Plt Count (140-440) K/mm3 Seg Neuts % (Manual) (40.0-70.0) % Lymphocytes % (Manual) (13.4-35.0) % Basophils % (Manual) (0.0-1.8) % Seg Neutrophils # Man (1.8-7.7) K/mm3 Eosinophils # (Manual) (0.0-0.4) K/mm3 Basophils # (Manual) (0.0-0.1) K/mm3 Sodium (137-145) mmol/L Chloride (98-107) mmol/L BUN (7-17) mg/dL Creatinine (0.7-1.2) mg/dL Glucose (65-100) mg/dL POC Glucose 106 H (70-105) - Imaging and cardiology Chest x-ray: image reviewed (improved consolidations)
[2018-12-11] MEDS ORDERED: MIRALAX 3350 FEEDTUBE PRN (12:37)
[2018-12-11] MEDS ORDERED: COZAAR PO SCH (14:00)
--- NOTE | 2018-12-11 16:57 | Event Note ---
Date: 12/11/18 Vascular was contacted for possible retained PICC line. Reviewed PICC line pictures which demonstrate normal appearance of a PICC catheter. Nursing anticipated there to be a well-defined tip at the end of the PICC line, but PICC lines are custom cut at specific lengths for different patient's. This is in contradistinction to a triple-lumen catheter which has a well defined tip, for example.
--- NOTE | 2018-12-11 17:10 | XRay Report ---
CHEST 1 VIEW INDICATION: retained picc line tip. COMPARISON: Earlier the same day. FINDINGS: Support devices: PICC line and NG tube remain. No catheter fragment identified. Heart: Within normal limits. Lungs/Pleura: Bilateral edema/pneumonia is mildly improved. Additional findings: None. IMPRESSION: 1. No retained catheter fragment. 2. Mild improvement in the appearance of the lungs. Signer Name: Bhupinder Hill MD Signed: 12/11/2018 5:06 PM Workstation Name: [id number]
[2018-12-11] MEDS: LOPRESSOR PO SCH (22:08)
[2018-12-12] MEDS: DUONEB *Not for PRN Use IH SCH ×4 (01:51→20:07)
[2018-12-12] MEDS: HumaLOG SUB-Q SCH ×3 (07:06→13:40)
--- NOTE | 2018-12-12 09:55 | Progress Note ---
Assessment and Plan Cultures: 12/02/2018 sputum culture: Usual respiratory nolan 12/02/2018 urine culture: No growth 12/02/2018 blood culture: No growth A/P: 53-year-old female with hypertension, hyperlipidemia, peripheral vascular disease presented to the emergency room on 12/02/2018 with complaints of chest pain, developed V.fib arrest, now with: 1) Shock, multifactorial: Cardiogenic versus septic. Patient with V. fib arrest. Developed bilateral aspiration pneumonia vs pneumonitis. Now alert, oriented, extubated. 2) Bilateral airspace disease with concern for pneumonia with acute respiratory failure: CXR and CT chest showed bilateral airspace disease. Noted to have gastric content aspiration on admission. Cultures negative. Antibiotic course complete. 3) Mixed acidosis: on admission. Lactate remains elevated. 4) V.fib arrest: cardiology following. EF 30-35%. 5) Leukocytosis - unclear etiology, as patient clinically improving. 6) Acute right common femoral vein DVT - right leg edematous. On Tirofiban. Recs: Continue to monitor off antibiotics CBC ordered for tomorrow [facility] M: [phone] O:[phone] Subjective Date of service: 12/12/18 Principal diagnosis: Ac hypoxemic resp failure; ARDS; Septic Shock; DVT; Cardiac arrest Interval history: Patient seen and examined. Reports right leg tenderness. No fevers. Objective - Exam Narrative Exam: Constitutional: awake, no distress, following commands Head, Ears, Nose: Normocephalic, atraumatic. External ears, NG tube in place Eyes: Conjunctivae/corneas clear. No icterus. No ptosis. Neck: Supple, no meningeal signs Oral: moist mucous membranes, fair dentition Cardiovascular: S1, S2 normal. Normal rhythm Respiratory: Good air entry, clear to auscultation bilaterally GI: Soft, non-tender; bowel sounds normal. No peritoneal signs Musculoskeletal: RLE edema 2+, RLE tenderness Skin: No rash or abscess Hem/Lymphatic: No palpable cervical or supraclavicular nodes. No lymphangitis Psych: no agitation Neurological: Moves all extremities, no focal defects - Constitutional Vitals: Vital Signs Temp Pulse Resp BP Pulse Ox 98.3 F 70 24 109/50 96 12/12/18 04:37 12/12/18 04:37 12/12/18 04:37 12/12/18 04:37 12/12/18 04:37 Temperature -Last 24 Hours Temperature 98.3 F Temperature 98.6 F Temperature 98.6 F Temperature 99.9 F Temperature 98.1 F Temperature 98.0 F Temperature 98.0 F - Labs CBC & Chem 7: 12/12/18 12:52 12/12/18 12:52 Labs: Abnormal lab results 12/11/18 12/11/18 Range/Units 12:18 18:42 POC Glucose 131 H 133 H (70-105)
[2018-12-12] MEDS ORDERED: NACL 0.9% 500 ML 500 ML ONE (09:57)
[2018-12-12] MEDS ORDERED: ASPIRIN ONE (09:57)
[2018-12-12] MEDS ORDERED: HEPARIN/NS 5000 UNIT/500ML(CATH LAB) 1,000 ML IR ONE (09:59)
[2018-12-12] MEDS: ASPIRIN PO SCH (09:59)
[2018-12-12] MEDS ORDERED: CALAN ONE (10:00)
[2018-12-12] MEDS ORDERED: NITROGLYCERIN SYRINGE 3 ML ONE ×2 (10:01→11:50)
[2018-12-12] MEDS: SUBLIMAZE ONE ×2 (10:21→10:47)
[2018-12-12] MEDS: VERSED ONE ×2 (10:21→10:48)
[2018-12-12] MEDS: XYLOCAINE 2% INFILTRATI ONE ×2 (10:22→10:50)
[2018-12-12] MEDS: HEPARIN 10,000 UNITS/10 ML ONE ×2 (10:53→11:09)
[2018-12-12] MEDS ORDERED: HEPARIN/NS 5000 UNIT/500ML(CATH LAB) 500 ML IR ONE (11:31)
[2018-12-12] MEDS ORDERED: AGGRASTAT DRIP (12.5 MG/250 ML) 12,500 MCG/250 ML BAG IV ONE (12:03)
[2018-12-12] MEDS ORDERED: ALUM-MAG HYDROX-SIMETH 200-200-20MG/5ML ONE (12:12)
[2018-12-12] MEDS ORDERED: BRILINTA ONE (12:12)
--- NOTE | 2018-12-12 13:30 | Event Note ---
Date: 12/12/18 Patient underwent a cardiac catheterization, completed via the right radial approach. Findings: Severe three-vessel disease, including subtotal occlusion of the proximal circumflex artery, 80% stenosis of the mid LAD, and 90% stenosis of the mid right coronary artery. We performed ad hoc coronary intervention to the proximal circumflex, an excellent angiographic result with the 3.0 mm drug-eluting stent. We performed second vessel coronary intervention to the mid LAD, excellent angiographic result with a 2.75 mm drug-eluting stent. Recommendations: Aggressive medical therapy including dual oral antiplatelet therapy, high-dose statins, JADE inhibitor, beta blockers and long-acting nitrates. The patient will be scheduled for third vessel coronary intervention to the mid right coronary artery on . We will order a LifeVest monitoring on discharge.
[2018-12-12 13:41] LABS: Hematocrit 30.9 % (30.3-42.9); Hemoglobin 9.7 gm/dl (10.1-14.3); Mean Corpuscular HGB Conc 32 % (30-34); Mean Corpuscular Volume 83 fl (79-97); Platelet Count 624 K/mm3 (140-440); Red Blood Count 3.72 M/mm3 (3.65-5.03); Red Cell Distribution Width 16.2 % (13.2-15.2)
[2018-12-12 13:52] LABS: INR 1.51 (0.87-1.13)
[2018-12-12 13:59] LABS: BUN/Creatinine Ratio 23; Blood Urea Nitrogen 18 mg/dL (7-17); Calcium 8.5 mg/dL (8.4-10.2); Hemolysis Index 7
[2018-12-12] MEDS ORDERED: AGGRASTAT DRIP (12.5 MG/250 ML) 12,500 MCG/250 ML BAG IV SCH (14:00)
[2018-12-12] MEDS ORDERED: NACL 0.9% 1000 ML 1,000 ML IV SCH (14:00)
[2018-12-12] MEDS: LOPRESSOR PO SCH ×2 (14:20→21:56)
[2018-12-12] MEDS: IMDUR PO SCH (14:21)
[2018-12-12] MEDS: CORDARONE PO SCH (14:21)
[2018-12-12] MEDS: ZESTRIL PO SCH (14:22)
[2018-12-12] MEDS: PEPCID PO SCH ×2 (14:22→21:56)
[2018-12-12] MEDS: LASIX PO SCH (14:22)
[2018-12-12] MEDS: PLETAL PO SCH ×2 (14:22→21:55)
[2018-12-12] MEDS: SODIUM CHLORIDE FLUSH SYRINGE 10 ML IV SCH ×2 (14:24→21:56)
--- NOTE | 2018-12-12 14:39 | Progress Note ---
Assessment and Plan Pt alert and awake. Resting on 2L O2. O2 sat 100%. No complaint of chest pain, shortness of breath or cough. - Patient Problems (1) Cardiopulmonary arrest Current Visit: Yes Status: Acute Plan to address problem: Pt resuscitated presently resting on nasal canula (2) Myocardial infarction Current Visit: Yes Status: Acute Plan to address problem: Pt has a coronary stent placement. (3) Deep venous thrombosis Current Visit: Yes Status: Acute Plan to address problem: start anticoagulation if no contraindication (4) Atrial fibrillation Current Visit: Yes Status: Acute Plan to address problem: start anticoagulation if no contraindication Subjective Date of service: 12/12/18 Principal diagnosis: Ac hypoxemic resp failure; ARDS; Septic Shock; DVT; Cardiac arrest Interval history: Pt alert and awake. Resting on 2L O2. O2 sat 100%. No complaint of chest pain, shortness of breath or cough. Objective Vital Signs - 12hr 12/12/18 12/12/18 12/12/18 03:49 04:37 10:00 Temperature 98.3 F Pulse Rate 81 70 Pulse Rate [ Anterior Bilateral Throughout] Pulse Rate [ Bilateral Throughout] Respiratory 24 Rate Respiratory Rate [Anterior Bilateral Throughout] Respiratory Rate [Bilateral Throughout] Blood Pressure 109/50 O2 Sat by Pulse 96 100 Oximetry 12/12/18 12/12/18 12/12/18 13:47 14:20 14:21 Temperature Pulse Rate 82 82 Pulse Rate [ 73 Anterior Bilateral Throughout] Pulse Rate [ 73 Bilateral Throughout] Respiratory Rate Respiratory 20 Rate [Anterior Bilateral Throughout] Respiratory 20 Rate [Bilateral Throughout] Blood Pressure O2 Sat by Pulse Oximetry 12/12/18 14:22 Temperature Pulse Rate 82 Pulse Rate [ Anterior Bilateral Throughout] Pulse Rate [ Bilateral Throughout] Respiratory Rate Respiratory Rate [Anterior Bilateral Throughout] Respiratory Rate [Bilateral Throughout] Blood Pressure O2 Sat by Pulse Oximetry Constitutional: no acute distress, alert, other (obese) Eyes: non-icteric ENT: oropharynx moist Neck: supple, no lymphadenopathy, no JVD, other (large neck circumference) Effort: normal Ascultation: Bilateral: diminished breath sounds, rales Percussion: Bilateral: not dull Cardiovascular: regular rate and rhythm, other (no R/M) Gastrointestinal: normoactive bowel sounds, soft, non-tender, non-distended, oth er (No HSM) Integumentary: normal Extremities: no cyanosis, pulses normal, no ischemia or petechiae Neurologic: normal mental status, non-focal exam (moves al extremities to painful stimuli), pupils equal and round, motor strength normal and Psychiatric: mood appropriate, affect normal CBC and BMP: 12/12/18 12:52 12/12/18 12:52 ABG, PT/INR, D-dimer: ABG POC ABG pH 7.445 (7.35-7.45) 12/10/18 16:54 POC ABG pCO2 42.2 (35-45) 12/10/18 16:54 POC ABG pO2 95 (80-105) 12/10/18 16:54 POC ABG HCO3 29.0 (22-26 mml/L) 12/10/18 16:54 POC ABG Total CO2 30 (23-27mmol/L) 12/10/18 16:54 POC ABG O2 Sat 98 12/10/18 16:54 PT/INR, D-dimer PT 17.8 Sec. (12.2-14.9) H 12/12/18 12:52 INR 1.51 (0.87-1.13) H 12/12/18 12:52 1085.94 ng/mlDDU (0-234) H 12/02/18 00:30 Abnormal lab findings: Abnormal Labs 12/02/18 12/02/18 12/02/18 00:30 00:30 00:30 WBC 11.6 H RBC Hgb Hct MCH RDW 18.1 H Plt Count Seg Neuts % (Manual) 35.0 L Lymphocytes % (Manual) 41.0 H Monocytes % (Manual) 11.0 H Eosinophils % (Manual) 6.0 H Basophils % (Manual) Nucleated RBC % Seg Neutrophils # Seg Neutrophils # Man Lymphocytes # (Manual) Monocytes # (Manual) 1.3 H Eosinophils # (Manual) 0.7 H Basophils # (Manual) PT INR D-Dimer 1085.94 H Heparin Anti-Xa Level POC ABG pH POC ABG pCO2 POC ABG pO2 Sodium Potassium 3.1 L Chloride Carbon Dioxide 21 L BUN 20 H Creatinine Glucose 222 H POC Glucose Lactic Acid Calcium Phosphorus Magnesium AST Total Creatine Kinase CK-MB (CK-2) CK-MB (CK-2) Rel Index Troponin T C-Reactive Protein Albumin Triglycerides LDL Cholesterol Direct HDL Cholesterol Urine WBC (Auto) 12/02/18 12/02/18 12/02/18 01:26 02:58 03:14 WBC RBC Hgb Hct MCH RDW Plt Count Seg Neuts % (Manual) Lymphocytes % (Manual) Monocytes % (Manual) Eosinophils % (Manual) Basophils % (Manual) Nucleated RBC % Seg Neutrophils # Seg Neutrophils # Man Lymphocytes # (Manual) Monocytes # (Manual) Eosinophils # (Manual) Basophils # (Manual) PT INR D-Dimer Heparin Anti-Xa Level POC ABG pH 7.212 L POC ABG pCO2 55.1 H POC ABG pO2 121 H Sodium Potassium Chloride Carbon Dioxide BUN Creatinine Glucose POC Glucose Lactic Acid Calcium Phosphorus Magnesium AST Total Creatine Kinase CK-MB (CK-2) CK-MB (CK-2) Rel Index Troponin T 0.054 H D C-Reactive Protein Albumin Triglycerides 358 H LDL Cholesterol Direct 42 L HDL Cholesterol 29 L Urine WBC (Auto) 12.0 H 12/02/18 12/02/18 12/02/18 04:52 05:26 06:19 WBC RBC Hgb Hct MCH RDW Plt Count Seg Neuts % (Manual) Lymphocytes % (Manual) Monocytes % (Manual) Eosinophils % (Manual) Basophils % (Manual) Nucleated RBC % Seg Neutrophils # Seg Neutrophils # Man Lymphocytes # (Manual) Monocytes # (Manual) Eosinophils # (Manual) Basophils # (Manual) PT INR D-Dimer Heparin Anti-Xa Level POC ABG pH 7.217 L 7.155 L POC ABG pCO2 52.7 H 57.3 H POC ABG pO2 56 L 57 L Sodium Potassium Chloride Carbon Dioxide BUN Creatinine Glucose POC Glucose Lactic Acid Calcium Phosphorus Magnesium AST Total Creatine Kinase 224 H CK-MB (CK-2) 30.7 H CK-MB (CK-2) Rel Index 13.7 H Troponin T 0.227 H* D C-Reactive Protein Albumin Triglycerides LDL Cholesterol Direct HDL Cholesterol Urine WBC (Auto) 12/02/18 12/02/18 12/02/18 07:52 10:50 10:50 WBC RBC Hgb Hct MCH RDW Plt Count Seg Neuts % (Manual) Lymphocytes % (Manual) Monocytes % (Manual) Eosinophils % (Manual) Basophils % (Manual) Nucleated RBC % Seg Neutrophils # Seg Neutrophils # Man Lymphocytes # (Manual) Monocytes # (Manual) Eosinophils # (Manual) Basophils # (Manual) PT INR D-Dimer Heparin Anti-Xa Level POC ABG pH 7.150 L POC ABG pCO2 56.3 H POC ABG pO2 53 L Sodium Potassium Chloride Carbon Dioxide BUN Creatinine Glucose POC Glucose Lactic Acid Calcium Phosphorus Magnesium AST Total Creatine Kinase 1322 H CK-MB (CK-2) 216.7 H CK-MB (CK-2) Rel Index 16.3 H Troponin T 0.871 H* D C-Reactive Protein 4.30 H Albumin Triglycerides LDL Cholesterol Direct HDL Cholesterol Urine WBC (Auto) 12/02/18 12/02/18 12/02/18 10:50 10:50 17:46 WBC RBC Hgb Hct MCH RDW Plt Count Seg Neuts % (Manual) Lymphocytes % (Manual) Monocytes % (Manual) Eosinophils % (Manual) Basophils % (Manual) Nucleated RBC % Seg Neutrophils # Seg Neutrophils # Man Lymphocytes # (Manual) Monocytes # (Manual) Eosinophils # (Manual) Basophils # (Manual) PT INR 1.15 H D-Dimer Heparin Anti-Xa Level POC ABG pH POC ABG pCO2 POC ABG pO2 Sodium Potassium Chloride Carbon Dioxide BUN Creatinine Glucose POC Glucose 135 H Lactic Acid 5.90 H* Calcium Phosphorus Magnesium AST Total Creatine Kinase CK-MB (CK-2) CK-MB (CK-2) Rel Index Troponin T C-Reactive Protein Albumin Triglycerides LDL Cholesterol Direct HDL Cholesterol Urine WBC (Auto) 12/02/18 12/02/18 12/03/18 18:09 20:18 01:47 WBC RBC Hgb Hct MCH RDW Plt Count Seg Neuts % (Manual) Lymphocytes % (Manual) Monocytes % (Manual) Eosinophils % (Manual) Basophils % (Manual) Nucleated RBC % Seg Neutrophils # Seg Neutrophils # Man Lymphocytes # (Manual) Monocytes # (Manual) Eosinophils # (Manual) Basophils # (Manual) PT INR D-Dimer Heparin Anti-Xa Level < 0.10 L POC ABG pH 7.167 L 7.118 L POC ABG pCO2 52.6 H 55.1 H POC ABG pO2 79 L Sodium Potassium Chloride Carbon Dioxide BUN Creatinine Glucose POC Glucose Lactic Acid Calcium Phosphorus Magnesium AST Total Creatine Kinase CK-MB (CK-2) CK-MB (CK-2) Rel Index Troponin T C-Reactive Protein Albumin Triglycerides LDL Cholesterol Direct HDL Cholesterol Urine WBC (Auto) 12/03/18 12/03/18 12/03/18 04:07 04:07 06:30 WBC 26.3 H RBC Hgb Hct MCH RDW 15.9 H Plt Count Seg Neuts % (Manual) 76.0 H Lymphocytes % (Manual) 6.0 L Monocytes % (Manual) Eosinophils % (Manual) Basophils % (Manual) Nucleated RBC % Seg Neutrophils # 24.3 H Seg Neutrophils # Man 20.0 H Lymphocytes # (Manual) Monocytes # (Manual) Eosinophils # (Manual) Basophils # (Manual) PT INR D-Dimer Heparin Anti-Xa Level POC ABG pH 7.326 L POC ABG pCO2 POC ABG pO2 290 H Sodium Potassium 3.5 L Chloride Carbon Dioxide 21 L BUN 19 H Creatinine Glucose 252 H POC Glucose Lactic Acid Calcium 6.7 L D Phosphorus Magnesium AST Total Creatine Kinase CK-MB (CK-2) CK-MB (CK-2) Rel Index Troponin T C-Reactive Protein Albumin Triglycerides LDL Cholesterol Direct HDL Cholesterol Urine WBC (Auto) 12/03/18 12/03/18 12/03/18 09:07 09:07 09:07 WBC RBC Hgb Hct MCH RDW Plt Count Seg Neuts % (Manual) Lymphocytes % (Manual) Monocytes % (Manual) Eosinophils % (Manual) Basophils % (Manual) Nucleated RBC % Seg Neutrophils # Seg Neutrophils # Man Lymphocytes # (Manual) Monocytes # (Manual) Eosinophils # (Manual) Basophils # (Manual) PT INR D-Dimer Heparin Anti-Xa Level < 0.10 L POC ABG pH POC ABG pCO2 POC ABG pO2 Sodium Potassium Chloride Carbon Dioxide BUN Creatinine Glucose POC Glucose Lactic Acid 2.90 H* Calcium Phosphorus Magnesium 1.20 L AST Total Creatine Kinase CK-MB (CK-2) CK-MB (CK-2) Rel Index Troponin T C-Reactive Protein Albumin Triglycerides LDL Cholesterol Direct HDL Cholesterol Urine WBC (Auto) 12/03/18 12/03/18 12/04/18 11:51 18:11 05:16 WBC RBC Hgb Hct MCH RDW Plt Count Seg Neuts % (Manual) Lymphocytes % (Manual) Monocytes % (Manual) Eosinophils % (Manual) Basophils % (Manual) Nucleated RBC % Seg Neutrophils # Seg Neutrophils # Man Lymphocytes # (Manual) Monocytes # (Manual) Eosinophils # (Manual) Basophils # (Manual) PT INR D-Dimer Heparin Anti-Xa Level POC ABG pH 7.464 H POC ABG pCO2 33.7 L POC ABG pO2 Sodium Potassium Chloride Carbon Dioxide BUN Creatinine Glucose POC Glucose 158 H 129 H Lactic Acid Calcium Phosphorus Magnesium AST Total Creatine Kinase CK-MB (CK-2) CK-MB (CK-2) Rel Index Troponin T C-Reactive Protein Albumin Triglycerides LDL Cholesterol Direct HDL Cholesterol Urine WBC (Auto) 12/04/18 12/04/18 12/04/18 05:23 05:23 05:23 WBC 23.7 H RBC 3.04 L Hgb 8.3 L Hct 25.2 L D MCH 27 L RDW 16.0 H Plt Count Seg Neuts % (Manual) 97.0 H Lymphocytes % (Manual) 1.0 L Monocytes % (Manual) Eosinophils % (Manual) Basophils % (Manual) Nucleated RBC % Seg Neutrophils # Seg Neutrophils # Man 23.0 H Lymphocytes # (Manual) 0.2 L Monocytes # (Manual) Eosinophils # (Manual) Basophils # (Manual) PT INR D-Dimer Heparin Anti-Xa Level POC ABG pH POC ABG pCO2 POC ABG pO2 Sodium 136 L Potassium 2.5 L* D Chloride 92.9 L Carbon Dioxide 36 H D BUN Creatinine Glucose 528 H* POC Glucose Lactic Acid 2.20 H* Calcium 6.0 L Phosphorus Magnesium AST Total Creatine Kinase CK-MB (CK-2) CK-MB (CK-2) Rel Index Troponin T C-Reactive Protein Albumin Triglycerides LDL Cholesterol Direct HDL Cholesterol Urine WBC (Auto) 12/04/18 12/04/18 12/04/18 05:23 08:03 08:03 WBC RBC Hgb Hct MCH RDW Plt Count Seg Neuts % (Manual) Lymphocytes % (Manual) Monocytes % (Manual) Eosinophils % (Manual) Basophils % (Manual) Nucleated RBC % Seg Neutrophils # Seg Neutrophils # Man Lymphocytes # (Manual) Monocytes # (Manual) Eosinophils # (Manual) Basophils # (Manual) PT INR D-Dimer Heparin Anti-Xa Level POC ABG pH POC ABG pCO2 POC ABG pO2 Sodium Potassium Chloride Carbon Dioxide BUN Creatinine Glucose POC Glucose Lactic Acid 2.90 H* Calcium Phosphorus Magnesium 1.40 L AST Total Creatine Kinase CK-MB (CK-2) CK-MB (CK-2) Rel Index Troponin T C-Reactive Protein 32.60 H Albumin Triglycerides LDL Cholesterol Direct HDL Cholesterol Urine WBC (Auto) 12/04/18 12/04/18 12/04/18 12:20 12:24 12:53 WBC RBC Hgb Hct MCH RDW Plt Count Seg Neuts % (Manual) Lymphocytes % (Manual) Monocytes % (Manual) Eosinophils % (Manual) Basophils % (Manual) Nucleated RBC % Seg Neutrophils # Seg Neutrophils # Man Lymphocytes # (Manual) Monocytes # (Manual) Eosinophils # (Manual) Basophils # (Manual) PT INR D-Dimer Heparin Anti-Xa Level POC ABG pH POC ABG pCO2 POC ABG pO2 Sodium Potassium 3.2 L D Chloride Carbon Dioxide BUN Creatinine Glucose 170 H POC Glucose 52 L 54 L Lactic Acid Calcium 6.7 L Phosphorus Magnesium AST Total Creatine Kinase CK-MB (CK-2) CK-MB (CK-2) Rel Index Troponin T C-Reactive Protein Albumin Triglycerides LDL Cholesterol Direct HDL Cholesterol Urine WBC (Auto) 12/04/18 12/05/18 12/05/18 13:06 05:22 05:22 WBC 26.1 H RBC 3.61 L Hgb 9.7 L Hct 30.1 L MCH 27 L RDW 16.5 H Plt Count Seg Neuts % (Manual) Lymphocytes % (Manual) Monocytes % (Manual) Eosinophils % (Manual) Basophils % (Manual) Nucleated RBC % Seg Neutrophils # Seg Neutrophils # Man Lymphocytes # (Manual) Monocytes # (Manual) Eosinophils # (Manual) Basophils # (Manual) PT INR D-Dimer Heparin Anti-Xa Level POC ABG pH POC ABG pCO2 POC ABG pO2 Sodium Potassium Chloride 113.9 H Carbon Dioxide BUN Creatinine Glucose POC Glucose 171 H Lactic Acid Calcium 7.8 L D Phosphorus Magnesium 2.50 H AST Total Creatine Kinase CK-MB (CK-2) CK-MB (CK-2) Rel Index Troponin T C-Reactive Protein Albumin Triglycerides LDL Cholesterol Direct HDL Cholesterol Urine WBC (Auto) 12/05/18 12/05/18 12/06/18 05:49 21:04 04:36 WBC 22.6 H RBC 3.62 L Hgb 9.9 L Hct 30.0 L MCH 27 L RDW 16.4 H Plt Count Seg Neuts % (Manual) 90.0 H Lymphocytes % (Manual) 6.0 L Monocytes % (Manual) Eosinophils % (Manual) Basophils % (Manual) Nucleated RBC % Seg Neutrophils # Seg Neutrophils # Man 20.3 H Lymphocytes # (Manual) Monocytes # (Manual) Eosinophils # (Manual) Basophils # (Manual) PT INR D-Dimer Heparin Anti-Xa Level 0.14 L POC ABG pH 7.315 L POC ABG pCO2 POC ABG pO2 Sodium Potassium Chloride Carbon Dioxide BUN Creatinine Glucose POC Glucose Lactic Acid Calcium Phosphorus Magnesium AST Total Creatine Kinase CK-MB (CK-2) CK-MB (CK-2) Rel Index Troponin T C-Reactive Protein Albumin Triglycerides LDL Cholesterol Direct HDL Cholesterol Urine WBC (Auto) 12/06/18 12/06/18 12/06/18 04:36 04:36 05:37 WBC RBC Hgb Hct MCH RDW Plt Count Seg Neuts % (Manual) Lymphocytes % (Manual) Monocytes % (Manual) Eosinophils % (Manual) Basophils % (Manual) Nucleated RBC % Seg Neutrophils # Seg Neutrophils # Man Lymphocytes # (Manual) Monocytes # (Manual) Eosinophils # (Manual) Basophils # (Manual) PT INR D-Dimer Heparin Anti-Xa Level < 0.10 L POC ABG pH POC ABG pCO2 POC ABG pO2 Sodium Potassium Chloride 111.6 H Carbon Dioxide BUN Creatinine Glucose 114 H POC Glucose 121 H Lactic Acid Calcium 8.0 L Phosphorus Magnesium AST 41 H Total Creatine Kinase CK-MB (CK-2) CK-MB (CK-2) Rel Index Troponin T C-Reactive Protein Albumin 2.3 L Triglycerides LDL Cholesterol Direct HDL Cholesterol Urine WBC (Auto) 12/06/18 12/06/18 12/06/18 11:46 14:15 18:34 WBC RBC Hgb Hct MCH RDW Plt Count Seg Neuts % (Manual) Lymphocytes % (Manual) Monocytes % (Manual) Eosinophils % (Manual) Basophils % (Manual) Nucleated RBC % Seg Neutrophils # Seg Neutrophils # Man Lymphocytes # (Manual) Monocytes # (Manual) Eosinophils # (Manual) Basophils # (Manual) PT INR D-Dimer Heparin Anti-Xa Level 1.22 H POC ABG pH POC ABG pCO2 POC ABG pO2 Sodium Potassium Chloride Carbon Dioxide BUN Creatinine Glucose POC Glucose 122 H 110 H Lactic Acid Calcium Phosphorus Magnesium AST Total Creatine Kinase CK-MB (CK-2) CK-MB (CK-2) Rel Index Troponin T C-Reactive Protein Albumin Triglycerides LDL Cholesterol Direct HDL Cholesterol Urine WBC (Auto) 12/06/18 12/06/18 12/07/18 23:00 23:11 03:23 WBC RBC Hgb Hct MCH RDW Plt Count Seg Neuts % (Manual) Lymphocytes % (Manual) Monocytes % (Manual) Eosinophils % (Manual) Basophils % (Manual) Nucleated RBC % Seg Neutrophils # Seg Neutrophils # Man Lymphocytes # (Manual) Monocytes # (Manual) Eosinophils # (Manual) Basophils # (Manual) PT INR D-Dimer Heparin Anti-Xa Level 0.15 L POC ABG pH POC ABG pCO2 POC ABG pO2 60 L Sodium Potassium Chloride Carbon Dioxide BUN Creatinine Glucose POC Glucose 138 H Lactic Acid Calcium Phosphorus Magnesium AST Total Creatine Kinase CK-MB (CK-2) CK-MB (CK-2) Rel Index Troponin T C-Reactive Protein Albumin Triglycerides LDL Cholesterol Direct HDL Cholesterol Urine WBC (Auto) 12/07/18 12/07/18 12/07/18 04:45 04:45 05:47 WBC 16.6 H RBC 3.56 L Hgb 9.7 L Hct 29.4 L MCH 27 L RDW 15.9 H Plt Count Seg Neuts % (Manual) 86.0 H Lymphocytes % (Manual) 12.0 L Monocytes % (Manual) Eosinophils % (Manual) Basophils % (Manual) Nucleated RBC % Seg Neutrophils # Seg Neutrophils # Man 14.3 H Lymphocytes # (Manual) Monocytes # (Manual) Eosinophils # (Manual) Basophils # (Manual) PT INR D-Dimer Heparin Anti-Xa Level POC ABG pH POC ABG pCO2 POC ABG pO2 Sodium Potassium 3.2 L Chloride 107.6 H Carbon Dioxide BUN 20 H Creatinine Glucose 138 H POC Glucose 160 H Lactic Acid Calcium 8.0 L Phosphorus Magnesium AST Total Creatine Kinase CK-MB (CK-2) CK-MB (CK-2) Rel Index Troponin T C-Reactive Protein Albumin Triglycerides LDL Cholesterol Direct HDL Cholesterol Urine WBC (Auto) 12/07/18 12/07/18 12/07/18 06:45 09:14 12:46 WBC RBC Hgb Hct MCH RDW Plt Count Seg Neuts % (Manual) Lymphocytes % (Manual) Monocytes % (Manual) Eosinophils % (Manual) Basophils % (Manual) Nucleated RBC % Seg Neutrophils # Seg Neutrophils # Man Lymphocytes # (Manual) Monocytes # (Manual) Eosinophils # (Manual) Basophils # (Manual) PT INR D-Dimer Heparin Anti-Xa Level < 0.10 L POC ABG pH POC ABG pCO2 POC ABG pO2 Sodium Potassium Chloride Carbon Dioxide BUN Creatinine Glucose POC Glucose 129 H Lactic Acid Calcium Phosphorus 1.80 L Magnesium AST Total Creatine Kinase CK-MB (CK-2) CK-MB (CK-2) Rel Index Troponin T C-Reactive Protein Albumin Triglycerides LDL Cholesterol Direct HDL Cholesterol Urine WBC (Auto) 12/07/18 12/07/18 12/08/18 17:33 23:42 05:09 WBC RBC Hgb Hct MCH RDW Plt Count Seg Neuts % (Manual) Lymphocytes % (Manual) Monocytes % (Manual) Eosinophils % (Manual) Basophils % (Manual) Nucleated RBC % Seg Neutrophils # Seg Neutrophils # Man Lymphocytes # (Manual) Monocytes # (Manual) Eosinophils # (Manual) Basophils # (Manual) PT INR D-Dimer Heparin Anti-Xa Level POC ABG pH POC ABG pCO2 POC ABG pO2 Sodium Potassium Chloride Carbon Dioxide BUN Creatinine Glucose POC Glucose 131 H 141 H 151 H Lactic Acid Calcium Phosphorus Magnesium AST Total Creatine Kinase CK-MB (CK-2) CK-MB (CK-2) Rel Index Troponin T C-Reactive Protein Albumin Triglycerides LDL Cholesterol Direct HDL Cholesterol Urine WBC (Auto) 12/08/18 12/08/18 12/08/18 06:10 06:10 12:03 WBC 22.7 H RBC 3.50 L Hgb 9.4 L Hct 28.8 L MCH 27 L RDW 16.3 H Plt Count Seg Neuts % (Manual) Lymphocytes % (Manual) Monocytes % (Manual) Eosinophils % (Manual) 10.0 H Basophils % (Manual) Nucleated RBC % Seg Neutrophils # Seg Neutrophils # Man 14.1 H Lymphocytes # (Manual) 6.1 H Monocytes # (Manual) Eosinophils # (Manual) 2.3 H Basophils # (Manual) PT INR D-Dimer Heparin Anti-Xa Level POC ABG pH POC ABG pCO2 POC ABG pO2 Sodium Potassium 3.5 L Chloride 108.8 H Carbon Dioxide BUN 23 H Creatinine 0.6 L Glucose 140 H POC Glucose 119 H Lactic Acid Calcium 8.1 L Phosphorus Magnesium AST Total Creatine Kinase CK-MB (CK-2) CK-MB (CK-2) Rel Index Troponin T C-Reactive Protein Albumin Triglycerides LDL Cholesterol Direct HDL Cholesterol Urine WBC (Auto) 12/08/18 12/08/18 12/08/18 13:19 18:03 18:26 WBC RBC Hgb Hct MCH RDW Plt Count Seg Neuts % (Manual) Lymphocytes % (Manual) Monocytes % (Manual) Eosinophils % (Manual) Basophils % (Manual) Nucleated RBC % Seg Neutrophils # Seg Neutrophils # Man Lymphocytes # (Manual) Monocytes # (Manual) Eosinophils # (Manual) Basophils # (Manual) PT INR D-Dimer Heparin Anti-Xa Level POC ABG pH 7.466 H 7.467 H POC ABG pCO2 POC ABG pO2 71 L Sodium Potassium Chloride Carbon Dioxide BUN Creatinine Glucose POC Glucose 152 H Lactic Acid Calcium Phosphorus Magnesium AST Total Creatine Kinase CK-MB (CK-2) CK-MB (CK-2) Rel Index Troponin T C-Reactive Protein Albumin Triglycerides LDL Cholesterol Direct HDL Cholesterol Urine WBC (Auto) 12/08/18 12/09/18 12/09/18 23:21 04:45 04:45 WBC 27.6 H RBC 3.33 L Hgb 8.8 L Hct 27.4 L MCH 26 L RDW 15.9 H Plt Count Seg Neuts % (Manual) 74.0 H Lymphocytes % (Manual) Monocytes % (Manual) Eosinophils % (Manual) Basophils % (Manual) Nucleated RBC % 2.0 H Seg Neutrophils # Seg Neutrophils # Man 20.4 H Lymphocytes # (Manual) Monocytes # (Manual) Eosinophils # (Manual) 0.6 H Basophils # (Manual) PT INR D-Dimer Heparin Anti-Xa Level POC ABG pH POC ABG pCO2 POC ABG pO2 Sodium 148 H Potassium Chloride 108.7 H Carbon Dioxide BUN 24 H Creatinine Glucose 141 H POC Glucose 130 H Lactic Acid Calcium Phosphorus Magnesium AST Total Creatine Kinase CK-MB (CK-2) CK-MB (CK-2) Rel Index Troponin T C-Reactive Protein Albumin Triglycerides LDL Cholesterol Direct HDL Cholesterol Urine WBC (Auto) 12/09/18 12/09/18 12/09/18 05:18 06:27 12:52 WBC RBC Hgb Hct MCH RDW Plt Count Seg Neuts % (Manual) Lymphocytes % (Manual) Monocytes % (Manual) Eosinophils % (Manual) Basophils % (Manual) Nucleated RBC % Seg Neutrophils # Seg Neutrophils # Man Lymphocytes # (Manual) Monocytes # (Manual) Eosinophils # (Manual) Basophils # (Manual) PT INR D-Dimer Heparin Anti-Xa Level POC ABG pH 7.454 H POC ABG pCO2 POC ABG pO2 Sodium Potassium Chloride Carbon Dioxide BUN Creatinine Glucose POC Glucose 162 H 142 H Lactic Acid Calcium Phosphorus Magnesium AST Total Creatine Kinase CK-MB (CK-2) CK-MB (CK-2) Rel Index Troponin T C-Reactive Protein Albumin Triglycerides LDL Cholesterol Direct HDL Cholesterol Urine WBC (Auto) 12/09/18 12/09/18 12/10/18 18:27 23:54 04:09 WBC 33.7 H RBC 3.56 L Hgb 9.4 L Hct 29.1 L MCH 26 L RDW 15.8 H Plt Count Seg Neuts % (Manual) 78.0 H Lymphocytes % (Manual) Monocytes % (Manual) Eosinophils % (Manual) Basophils % (Manual) Nucleated RBC % Seg Neutrophils # Seg Neutrophils # Man 26.3 H Lymphocytes # (Manual) 6.1 H Monocytes # (Manual) Eosinophils # (Manual) Basophils # (Manual) PT INR D-Dimer Heparin Anti-Xa Level POC ABG pH POC ABG pCO2 POC ABG pO2 Sodium Potassium Chloride Carbon Dioxide BUN Creatinine Glucose POC Glucose 117 H 108 H Lactic Acid Calcium Phosphorus Magnesium AST Total Creatine Kinase CK-MB (CK-2) CK-MB (CK-2) Rel Index Troponin T C-Reactive Protein Albumin Triglycerides LDL Cholesterol Direct HDL Cholesterol Urine WBC (Auto) 12/10/18 12/10/18 12/10/18 04:09 04:57 12:15 WBC RBC Hgb Hct MCH RDW Plt Count Seg Neuts % (Manual) Lymphocytes % (Manual) Monocytes % (Manual) Eosinophils % (Manual) Basophils % (Manual) Nucleated RBC % Seg Neutrophils # Seg Neutrophils # Man Lymphocytes # (Manual) Monocytes # (Manual) Eosinophils # (Manual) Basophils # (Manual) PT INR D-Dimer Heparin Anti-Xa Level POC ABG pH POC ABG pCO2 POC ABG pO2 Sodium 149 H Potassium Chloride 110.5 H Carbon Dioxide 31 H BUN 28 H Creatinine Glucose 129 H POC Glucose 120 H 118 H Lactic Acid Calcium Phosphorus Magnesium AST Total Creatine Kinase CK-MB (CK-2) CK-MB (CK-2) Rel Index Troponin T C-Reactive Protein Albumin Triglycerides LDL Cholesterol Direct HDL Cholesterol Urine WBC (Auto) 12/11/18 12/11/18 12/11/18 00:03 04:45 04:45 WBC 30.8 H RBC 3.38 L Hgb 8.9 L Hct 27.9 L MCH 26 L RDW 15.9 H Plt Count 465 H Seg Neuts % (Manual) 86.0 H Lymphocytes % (Manual) 8.0 L Monocytes % (Manual) Eosinophils % (Manual) Basophils % (Manual) 2.0 H Nucleated RBC % Seg Neutrophils # Seg Neutrophils # Man 26.5 H Lymphocytes # (Manual) Monocytes # (Manual) Eosinophils # (Manual) 0.6 H Basophils # (Manual) 0.6 H PT INR D-Dimer Heparin Anti-Xa Level POC ABG pH POC ABG pCO2 POC ABG pO2 Sodium 146 H Potassium Chloride 107.6 H Carbon Dioxide BUN 25 H Creatinine 0.6 L Glucose 116 H POC Glucose 111 H Lactic Acid Calcium Phosphorus Magnesium AST Total Creatine Kinase CK-MB (CK-2) CK-MB (CK-2) Rel Index Troponin T C-Reactive Protein Albumin Triglycerides LDL Cholesterol Direct HDL Cholesterol Urine WBC (Auto) 12/11/18 12/11/18 12/11/18 05:07 12:18 18:42 WBC RBC Hgb Hct MCH RDW Plt Count Seg Neuts % (Manual) Lymphocytes % (Manual) Monocytes % (Manual) Eosinophils % (Manual) Basophils % (Manual) Nucleated RBC % Seg Neutrophils # Seg Neutrophils # Man Lymphocytes # (Manual) Monocytes # (Manual) Eosinophils # (Manual) Basophils # (Manual) PT INR D-Dimer Heparin Anti-Xa Level POC ABG pH POC ABG pCO2 POC ABG pO2 Sodium Potassium Chloride Carbon Dioxide BUN Creatinine Glucose POC Glucose 106 H 131 H 133 H Lactic Acid Calcium Phosphorus Magnesium AST Total Creatine Kinase CK-MB (CK-2) CK-MB (CK-2) Rel Index Troponin T C-Reactive Protein Albumin Triglycerides LDL Cholesterol Direct HDL Cholesterol Urine WBC (Auto) 12/12/18 12/12/18 12/12/18 12:52 12:52 12:52 WBC 30.2 H RBC Hgb 9.7 L Hct MCH 26 L RDW 16.2 H Plt Count 624 H Seg Neuts % (Manual) Lymphocytes % (Manual) Monocytes % (Manual) Eosinophils % (Manual) Basophils % (Manual) Nucleated RBC % Seg Neutrophils # Seg Neutrophils # Man Lymphocytes # (Manual) Monocytes # (Manual) Eosinophils # (Manual) Basophils # (Manual) PT 17.8 H INR 1.51 H D-Dimer Heparin Anti-Xa Level POC ABG pH POC ABG pCO2 POC ABG pO2 Sodium Potassium Chloride Carbon Dioxide BUN 18 H Creatinine Glucose POC Glucose Lactic Acid Calcium Phosphorus Magnesium AST Total Creatine Kinase CK-MB (CK-2) CK-MB (CK-2) Rel Index Troponin T C-Reactive Protein Albumin Triglycerides LDL Cholesterol Direct HDL Cholesterol Urine WBC (Auto) Chest x-ray: report reviewed, image reviewed, other (pulmonary edema/pneumonia reported somewhat improved. ) Allied health notes reviewed: RT
--- NOTE | 2018-12-12 14:59 | Cardiac Catherization Report ---
CARDIAC CATHETERIZATION AND CORONARY ANGIOPLASTY REPORT REASON FOR STUDY: The patient is a 53-year-old woman who presented to the Emergency Room, with a ventricular fibrillation arrest, successfully resuscitated following defibrillation. Following that, she was intubated and was in the ICU for several days on the ventilator, with bilateral pulmonary infiltrates, questionable pulmonary edema versus aspiration pneumonitis. Echocardiogram demonstrated a dilated cardiomyopathy with ejection fraction 30-35%. She has successfully been weaned off the vent, currently alert and oriented x 3, asymptomatic. Cardiac catheterization was recommended for further assessment post-cardiac arrest and dilated cardiomyopathy. On her laboratory profile, we noted a persistent leukocytosis, under further evaluation by Infectious Disease. Despite leukocytosis, the patient has remained afebrile, and otherwise looks and feels well. Risks and benefits of cardiac catheterization discussed with the patient and family, and consented to proceed. PROCEDURES: 1. Left heart catheterization. 2. Selective left and right coronary angiography. 3. Left ventricular angiography. 4. Coronary angioplasty and stenting of the circumflex artery. 5. Second vessel coronary angioplasty and stenting of the mid left anterior descending. 6. Sedation time, start 10:21, end 11:56. The patient was prepped and draped in a sterile fashion after informed consent. The right radial cath site was prepped and draped after a negative Radu's test. The right radial artery was entered using Seldinger technique, followed by placement of a 6-Serbian hydrophilic sheath. Routine radial cocktail was administered via the sheath. Selective angiography of the left and right coronary arteries was performed, using a Stu catheter for the left coronary artery and a right Bradley for the right coronary artery. The right Bradley was used for left ventricle angiography. The angiograms were reviewed. HEMODYNAMICS: Left ventricular end-diastolic pressure was 7. Ascending aortic pressure 126/61. There was no significant pressure gradient on pullback across the aortic valve. CORONARY ANGIOGRAPHY: Left main coronary artery was free of significant disease. The left anterior descending artery contained a focal, hazy, 80% stenosis of its mid segment. The circumflex artery was subtotally occluded in its proximal segment, with only faint distal flow revealing a large bifurcating obtuse marginal system. The right coronary artery was dominant. This vessel also contained a focal, 90% stenosis of its mid segment. There was at least moderate to moderately severe left ventricular systolic dysfunction, ejection fraction estimated at 35%. CORONARY ANGIOPLASTY: After review of the angiograms, we recommended ad hoc angioplasty and stenting of the circumflex, if successful, followed by the mid LAD. We selected a #1 Amplatz left guiding catheter and advanced to the left coronary ostium. A 0.014 inch Whisper wire was introduced into the circumflex across the lesional segment. We then performed predilatation balloon angioplasty using a 3.0 mm balloon catheter. Following that, a 3.0 x 8 mm drug-eluting stent was deployed across the lesional segment, inflated to optimal pressures. Following stenting, there was an excellent angiographic result, and ELLA 3 flow was restored to the circumflex system. We then turned our attention to the LAD, the Whisper wire was withdrawn from the circumflex, and redirected into the LAD, across the lesional segment of the mid LAD. In a primary stenting maneuver, we then deployed a 2.75 x 8 mm drug-eluting stent, to the mid LAD. Another 2.75 x 8 mm stent was also deployed to the proximal border of the first stent, to more optimally cover the entire lesional segment. Following stenting of the LAD, there was an excellent angiographic result, zero residual stenosis and ELLA 3 flow. The patient tolerated the procedure well and there were no complications. CONCLUSION: 1. Severe 3-vessel coronary artery disease. 2. Ischemic cardiomyopathy, left ventricular ejection fraction 35%. 3. Successful ad hoc angioplasty and stenting of the subtotaled proximal circumflex, excellent angiographic result following a 3.0 mm drug-eluting stent, expanded to a 3.25 mm diameter. 4. Successful second vessel angioplasty and stenting of the mid left anterior descending, and 80% stenosis was treated with a 2.75 mm drug-eluting stent, with excellent angiographic result. The patient will be recommended for a stage, third vessel angioplasty of the mid right coronary artery. [facility]# [id number] JAMIE/NTS
[2018-12-12 16:09] LABS: Basophils % (Manual) 0 % (0.0-1.8); Eosinophils % (Manual) 1.5 % (0.0-4.3); Monocytes % (Manual) 5.5 % (0.0-7.3); Myelocytes # (Manual) 0.3 K/mm3; Total Cells Counted 200
[2018-12-12 16:11] LABS: Anisocytosis 1+; Large Platelets Few; Platelet Estimate Consistent w Auto; Target Cells Few
[2018-12-12] MEDS: BRILINTA PO SCH (21:56)
[2018-12-13] MEDS: HumaLOG SUB-Q SCH ×4 (01:06→23:45)
[2018-12-13] MEDS: DUONEB *Not for PRN Use IH SCH ×4 (02:40→20:27)
[2018-12-13 05:41] LABS: Creatine Kinase MB 7.2 ng/mL (0.0-4.0)
[2018-12-13 05:43] LABS: BUN/Creatinine Ratio 16; Blood Urea Nitrogen 13 mg/dL (7-17); Calcium 8.1 mg/dL (8.4-10.2); Hemolysis Index 19
[2018-12-13 06:49] LABS: Hematocrit 27.5 % (30.3-42.9); Hemoglobin 8.9 gm/dl (10.1-14.3); Mean Corpuscular HGB Conc 33 % (30-34); Mean Corpuscular Volume 82 fl (79-97); Platelet Count 602 K/mm3 (140-440); Red Blood Count 3.34 M/mm3 (3.65-5.03); Red Cell Distribution Width 15.7 % (13.2-15.2)
--- NOTE | 2018-12-13 07:46 | XRay Report ---
CHEST 1 VIEW INDICATION: post pci. Recent coronary artery catheterization. COMPARISON: 12/11/2018 FINDINGS: Support devices: None. Heart: Mild cardiomegaly is stable. Lungs/Pleura: Prominent interstitial markings versus vascular congestion throughout both lungs appear s relatively stable since the exam 2 days ago. No consolidation, large pleural effusion or pneumothor ax is identified. Additional findings: None. IMPRESSION: Stable mild cardiomegaly and pulmonary venous congestion. No acute process. Signer Name: Rhett Bella Jr, MD Signed: 12/13/2018 7:42 AM Workstation Name: [id number]
[2018-12-13] MEDS: LOPRESSOR PO SCH ×2 (11:22→21:43)
[2018-12-13] MEDS: LASIX PO SCH (11:22)
[2018-12-13] MEDS: ZESTRIL PO SCH (11:23)
--- NOTE | 2018-12-13 11:23 | Progress Note ---
Assessment and Plan Acute respiratory failure Extensive airspace disease on CT Leukocytosis Cardiopulmonary arrest Vfib requiring cardioversion in the ER MPI 09/16/2018 - normal Echo 09/16/2018 - normal LVEF Echo 12/02/2018- LVEF 30-35% [facility] findings: Severe three-vessel disease, including subtotal occlusion of the proximal circumflex artery, 80% stenosis of the mid LAD, and 90% stenosis of the mid right coronary artery. s/p PCI of the proximal circumflex with the 3.0 mm drug-eluting stent. s/p second vessel PCI to the mid LAD with a 2.75 mm drug-eluting stent. Abnormal troponin likely type II IA post Vfib and electrical shock Paroxysmal Atrial fibrillation, new onset currently in sinus rhythm Right common femoral vein DVT - new diagnosis this admission Systemic Hypertension Peripheral vascular disease on cilostazol Hyperlipidemia Former smoker (quit in 2011) Morbid obesity Marijuana use Non-compliance with meds Plan: Continue medical therapy for paroxysmal atrial fibrillation, dilated cardiomyopathy and coronary artery disease as tolerated. Continue DAPT with Brilinta and aspirin without interruption. The patient will be scheduled for third vessel coronary intervention to the mid right coronary artery on . LifeVest placement on discharge. Subjective Date of service: 12/13/18 Principal diagnosis: Ac hypoxemic resp failure; ARDS; Septic Shock; DVT; Cardiac arrest Interval history: Patient denies chest pain and shortness of breath. Right radial cath site is intact. No hematoma noted; pulse is palpable. Objective Vital Signs Temp Pulse Pulse Pulse Pulse Pulse Resp 12/13/18 08:17 98.4 F 18 12/13/18 07:36 12/13/18 07:35 76 12/13/18 03:39 98.0 F 64 18 12/13/18 02:43 86 12/13/18 00:40 63 18 12/13/18 00:17 98.0 F 60 18 12/12/18 22:09 99.5 F 61 20 12/12/18 22:00 12/12/18 20:08 68 12/12/18 19:45 70 12/12/18 17:25 98.6 F 70 20 12/12/18 14:22 82 12/12/18 14:21 82 12/12/18 14:20 82 12/12/18 13:47 73 73 12/12/18 13:08 99.3 F 69 22 12/12/18 12:00 85 82 63 18 Resp Resp BP BP Pulse Ox 12/13/18 08:17 115/58 12/13/18 07:36 96 12/13/18 07:35 18 12/13/18 03:39 91/46 93 12/13/18 02:43 18 12/13/18 00:40 97 12/13/18 00:17 102/38 98 12/12/18 22:09 110/68 99 12/12/18 22:00 97 12/12/18 20:08 18 12/12/18 19:45 12/12/18 17:25 114/61 100 12/12/18 14:22 12/12/18 14:21 12/12/18 14:20 12/12/18 13:47 20 20 12/12/18 13:08 123/59 97 12/12/18 12:00 3 L - Physical Examination General: No Apparent Distress HEENT: Positive: PERRL Neck: Positive: trachea midline Cardiac: Positive: Reg Rate and Rhythm Lungs: Positive: Decreased Breath Sounds Neuro: Positive: Grossly Intact Abdomen: Positive: Soft Extremities: Present: +1 Edema - Labs and Meds Cardiac Enzymes 12/13/18 Range/Units 05:09 CK-MB (CK-2) 7.2 H (0.0-4.0) ng/mL Coagulation 12/12/18 Range/Units 12:52 PT 17.8 H (12.2-14.9) Sec. INR 1.51 H (0.87-1.13) CBC 12/12/18 12/13/18 Range/Units 12:52 05:09 WBC 30.2 H 27.7 H (4.5-11.0) K/mm3 RBC 3.72 3.34 L (3.65-5.03) M/mm3 Hgb 9.7 L 8.9 L (10.1-14.3) gm/dl Hct 30.9 27.5 L (30.3-42.9) % Plt Count 624 H 602 H (140-440) K/mm3 Comprehensive Metabolic Panel 12/12/18 12/13/18 Range/Units 12:52 05:09 Sodium 140 141 (137-145) mmol/L Potassium 4.4 3.9 (3.6-5.0) mmol/L Chloride 103.3 107.2 H (98-107) mmol/L Carbon Dioxide 27 24 (22-30) mmol/L BUN 18 H 13 (7-17) mg/dL Creatinine 0.8 0.8 (0.7-1.2) mg/dL Glucose 96 115 H (65-100) mg/dL Calcium 8.5 8.1 L (8.4-10.2) mg/dL - Allied health notes Allied health notes reviewed: RT
[2018-12-13] MEDS: BRILINTA PO SCH ×2 (11:25→21:44)
[2018-12-13] MEDS: IMDUR PO SCH (11:25)
[2018-12-13] MEDS: PLETAL PO SCH ×2 (11:25→21:43)
[2018-12-13] MEDS: PEPCID PO SCH ×2 (11:25→21:43)
[2018-12-13] MEDS: HALFPRIN EC PO SCH (11:26)
[2018-12-13] MEDS: CORDARONE PO SCH ×2 (11:34→11:40)
[2018-12-13] MEDS: SODIUM CHLORIDE FLUSH SYRINGE 10 ML IV SCH ×2 (11:41→21:44)
--- NOTE | 2018-12-13 11:55 | Progress Note ---
Assessment and Plan Cultures: 12/02/2018 sputum culture: Usual respiratory nolan 12/02/2018 urine culture: No growth 12/02/2018 blood culture: No growth A/P: 53-year-old female with hypertension, hyperlipidemia, peripheral vascular disease presented to the emergency room on 12/02/2018 with complaints of chest pain, developed V.fib arrest, now with: 1) Shock, multifactorial: Cardiogenic versus septic. Patient with V. fib arrest. Developed bilateral aspiration pneumonia vs pneumonitis. Now alert, oriented, extubated. 2) Bilateral airspace disease with concern for pneumonia with acute respiratory failure: CXR and CT chest showed bilateral airspace disease. Noted to have gastric content aspiration on admission. Cultures negative. Antibiotic course complete. 3) Mixed acidosis: on admission. Lactate remains elevated. 4) V.fib arrest: cardiology following. EF 30-35%. 5) Leukocytosis; trending down. unclear etiology, as patient clinically improving. 6) Acute right common femoral vein DVT - right leg edematous. On Tirofiban. Recs: Continue to monitor off antibiotics [employer] M: [id number] O:[phone] Subjective Date of service: 12/13/18 Principal diagnosis: Ac hypoxemic resp failure; ARDS; Septic Shock; DVT; Cardiac arrest Interval history: Patient seen and examined. Reports right leg tenderness improved. No fevers. Objective - Exam Narrative Exam: Constitutional: awake, no distress, following commands Head, Ears, Nose: Normocephalic, atraumatic. External ears, NG tube in place Eyes: Conjunctivae/corneas clear. No icterus. No ptosis. Neck: Supple, no meningeal signs Oral: moist mucous membranes, fair dentition Cardiovascular: S1, S2 normal. Normal rhythm Respiratory: Good air entry, clear to auscultation bilaterally GI: Soft, non-tender; bowel sounds normal. No peritoneal signs Musculoskeletal: RLE edema 2+, RLE tenderness Skin: No rash or abscess Hem/Lymphatic: No palpable cervical or supraclavicular nodes. No lymphangitis Psych: no agitation Neurological: Moves all extremities, no focal defects - Constitutional Vitals: Vital Signs Temp Pulse Resp BP Pulse Ox 98.4 F 76 18 115/58 96 12/13/18 08:17 12/13/18 07:35 12/13/18 08:17 12/13/18 08:17 12/13/18 07:36 Temperature -Last 24 Hours Temperature 98.4 F Temperature 98.0 F Temperature 98.0 F Temperature 99.5 F Temperature 98.6 F Temperature 99.3 F - Labs CBC & Chem 7: 12/13/18 05:09 12/13/18 05:09 Labs: Abnormal lab results 12/12/18 12/12/18 12/12/18 Range/Units 12:52 12:52 12:52 WBC 30.2 H (4.5-11.0) K/mm3 RBC (3.65-5.03) M/mm3 Hgb 9.7 L (10.1-14.3) gm/dl Hct (30.3-42.9) % MCH 26 L (28-32) pg RDW 16.2 H (13.2-15.2) % Plt Count 624 H (140-440) K/mm3 Seg Neuts % (Manual) 82.0 H (40.0-70.0) % Lymphocytes % (Manual) 10.0 L (13.4-35.0) % Seg Neutrophils # Man 24.8 H (1.8-7.7) K/mm3 Monocytes # (Manual) 1.7 H (0.0-0.8) K/mm3 Eosinophils # (Manual) 0.5 H (0.0-0.4) K/mm3 PT 17.8 H (12.2-14.9) Sec. INR 1.51 H (0.87-1.13) Chloride (98-107) mmol/L BUN 18 H (7-17) mg/dL Glucose (65-100) mg/dL POC Glucose (70-105) Calcium (8.4-10.2) mg/dL Total Creatine Kinase (30-135) units/L CK-MB (CK-2) (0.0-4.0) ng/mL CK-MB (CK-2) Rel Index (0-4) Troponin T (0.00-0.029) ng/mL 12/12/18 12/12/18 12/13/18 Range/Units 17:34 23:35 05:09 WBC 27.7 H (4.5-11.0) K/mm3 RBC 3.34 L (3.65-5.03) M/mm3 Hgb 8.9 L (10.1-14.3) gm/dl Hct 27.5 L (30.3-42.9) % MCH 27 L (28-32) pg RDW 15.7 H (13.2-15.2) % Plt Count 602 H (140-440) K/mm3 Seg Neuts % (Manual) (40.0-70.0) % Lymphocytes % (Manual) (13.4-35.0) % Seg Neutrophils # Man (1.8-7.7) K/mm3 Monocytes # (Manual) (0.0-0.8) K/mm3 Eosinophils # (Manual) (0.0-0.4) K/mm3 PT (12.2-14.9) Sec. INR (0.87-1.13) Chloride (98-107) mmol/L BUN (7-17) mg/dL Glucose (65-100) mg/dL POC Glucose 107 H 120 H (70-105) Calcium (8.4-10.2) mg/dL Total Creatine Kinase (30-135) units/L CK-MB (CK-2) (0.0-4.0) ng/mL CK-MB (CK-2) Rel Index (0-4) Troponin T (0.00-0.029) ng/mL 12/13/18 12/13/18 12/13/18 Range/Units 05:09 08:00 11:59 WBC (4.5-11.0) K/mm3 RBC (3.65-5.03) M/mm3 Hgb (10.1-14.3) gm/dl Hct (30.3-42.9) % MCH (28-32) pg RDW (13.2-15.2) % Plt Count (140-440) K/mm3 Seg Neuts % (Manual) (40.0-70.0) % Lymphocytes % (Manual) (13.4-35.0) % Seg Neutrophils # Man (1.8-7.7) K/mm3 Monocytes # (Manual) (0.0-0.8) K/mm3 Eosinophils # (Manual) (0.0-0.4) K/mm3 PT (12.2-14.9) Sec. INR (0.87-1.13) Chloride 107.2 H (98-107) mmol/L BUN (7-17) mg/dL Glucose 115 H (65-100) mg/dL POC Glucose 114 H 108 H (70-105) Calcium 8.1 L (8.4-10.2) mg/dL Total Creatine Kinase 148 H (30-135) units/L CK-MB (CK-2) 7.2 H (0.0-4.0) ng/mL CK-MB (CK-2) Rel Index 4.8 H (0-4) Troponin T 1.250 H* (0.00-0.029) ng/mL
[2018-12-13 12:28] LABS: Total Cells Counted 100
[2018-12-13 12:29] LABS: Anisocytosis 1+; Band Neutrophils # (Manual) 0.3 K/mm3; Basophils % (Manual) 0 % (0.0-1.8); Eosinophils % (Manual) 0 % (0.0-4.3); Smudge Cells Few
[2018-12-13 12:30] LABS: Platelet Estimate Appears Decreased
--- NOTE | 2018-12-13 13:58 | Progress Note ---
Assessment and Plan t alert and awake. Resting on 2L O2. O2 sat 96%. No complaint of chest pain, shortness of breath . Coughing up brown sputum at times. - Patient Problems (1) Cardiopulmonary arrest Current Visit: Yes Status: Acute Plan to address problem: Pt resuscitated presently resting on nasal canula (2) Myocardial infarction Current Visit: Yes Status: Acute Plan to address problem: Pt has a coronary stent placement. (3) Deep venous thrombosis Current Visit: Yes Status: Acute Plan to address problem: start anticoagulation if no contraindication (4) Atrial fibrillation Current Visit: Yes Status: Acute Plan to address problem: start anticoagulation if no contraindication Subjective Date of service: 12/13/18 Principal diagnosis: Ac hypoxemic resp failure; ARDS; Septic Shock; DVT; Cardiac arrest Interval history: Pt alert and awake. Resting on 2L O2. O2 sat 96%. No complaint of chest pain, shortness of breath . Coughing up brown sputum at times. Objective Vital Signs - 12hr 12/13/18 12/13/18 12/13/18 02:43 03:39 07:35 Temperature 98.0 F Pulse Rate 64 Pulse Rate [ 86 76 Bilateral Throughout] Respiratory 18 Rate Respiratory 18 18 Rate [Bilateral Throughout] Blood Pressure 91/46 O2 Sat by Pulse 93 Oximetry 12/13/18 12/13/18 12/13/18 07:36 08:17 13:44 Temperature 98.4 F Pulse Rate Pulse Rate [ 75 Bilateral Throughout] Respiratory 18 Rate Respiratory 19 Rate [Bilateral Throughout] Blood Pressure 115/58 O2 Sat by Pulse 96 Oximetry Constitutional: no acute distress, alert, other (obese) Eyes: non-icteric ENT: oropharynx moist Neck: supple, no lymphadenopathy, no JVD, other (large neck circumference) Effort: normal Ascultation: Bilateral: diminished breath sounds, rales Percussion: Bilateral: not dull Cardiovascular: regular rate and rhythm, other (no R/M) Gastrointestinal: normoactive bowel sounds, soft, non-tender, non-distended, other (No HSM) Integumentary: normal Extremities: no cyanosis, pulses normal, no ischemia or petechiae Neurologic: normal mental status, non-focal exam (moves al extremities to painful stimuli), pupils equal and round, motor strength normal and Psychiatric: mood appropriate, affect normal CBC and BMP: 12/13/18 05:09 12/13/18 05:09 ABG, PT/INR, D-dimer: ABG POC ABG pH 7.445 (7.35-7.45) 12/10/18 16:54 POC ABG pCO2 42.2 (35-45) 12/10/18 16:54 POC ABG pO2 95 (80-105) 12/10/18 16:54 POC ABG HCO3 29.0 (22-26 mml/L) 12/10/18 16:54 POC ABG Total CO2 30 (23-27mmol/L) 12/10/18 16:54 POC ABG O2 Sat 98 12/10/18 16:54 PT/INR, D-dimer PT 17.8 Sec. (12.2-14.9) H 12/12/18 12:52 INR 1.51 (0.87-1.13) H 12/12/18 12:52 1085.94 ng/mlDDU (0-234) H 12/02/18 00:30 Abnormal lab findings: Abnormal Labs 12/02/18 12/02/18 12/02/18 00:30 00:30 00:30 WBC 11.6 H RBC Hgb Hct MCH RDW 18.1 H Plt Count Seg Neuts % (Manual) 35.0 L Lymphocytes % (Manual) 41.0 H Monocytes % (Manual) 11.0 H Eosinophils % (Manual) 6.0 H Basophils % (Manual) Nucleated RBC % Seg Neutrophils # Seg Neutrophils # Man Lymphocytes # (Manual) Monocytes # (Manual) 1.3 H Eosinophils # (Manual) 0.7 H Basophils # (Manual) PT INR D-Dimer 1085.94 H Heparin Anti-Xa Level POC ABG pH POC ABG pCO2 POC ABG pO2 Sodium Potassium 3.1 L Chloride Carbon Dioxide 21 L BUN 20 H Creatinine Glucose 222 H POC Glucose Lactic Acid Calcium Phosphorus Magnesium AST Total Creatine Kinase CK-MB (CK-2) CK-MB (CK-2) Rel Index Troponin T C-Reactive Protein Albumin Triglycerides LDL Cholesterol Direct HDL Cholesterol Urine WBC (Auto) 12/02/18 12/02/18 12/02/18 01:26 02:58 03:14 WBC RBC Hgb Hct MCH RDW Plt Count Seg Neuts % (Manual) Lymphocytes % (Manual) Monocytes % (Manual) Eosinophils % (Manual) Basophils % (Manual) Nucleated RBC % Seg Neutrophils # Seg Neutrophils # Man Lymphocytes # (Manual) Monocytes # (Manual) Eosinophils # (Manual) Basophils # (Manual) PT INR D-Dimer Heparin Anti-Xa Level POC ABG pH 7.212 L POC ABG pCO2 55.1 H POC ABG pO2 121 H Sodium Potassium Chloride Carbon Dioxide BUN Creatinine Glucose POC Glucose Lactic Acid Calcium Phosphorus Magnesium AST Total Creatine Kinase CK-MB (CK-2) CK-MB (CK-2) Rel Index Troponin T 0.054 H D C-Reactive Protein Albumin Triglycerides 358 H LDL Cholesterol Direct 42 L HDL Cholesterol 29 L Urine WBC (Auto) 12.0 H 12/02/18 12/02/18 12/02/18 04:52 05:26 06:19 WBC RBC Hgb Hct MCH RDW Plt Count Seg Neuts % (Manual) Lymphocytes % (Manual) Monocytes % (Manual) Eosinophils % (Manual) Basophils % (Manual) Nucleated RBC % Seg Neutrophils # Seg Neutrophils # Man Lymphocytes # (Manual) Monocytes # (Manual) Eosinophils # (Manual) Basophils # (Manual) PT INR D-Dimer Heparin Anti-Xa Level POC ABG pH 7.217 L 7.155 L POC ABG pCO2 52.7 H 57.3 H POC ABG pO2 56 L 57 L Sodium Potassium Chloride Carbon Dioxide BUN Creatinine Glucose POC Glucose Lactic Acid Calcium Phosphorus Magnesium AST Total Creatine Kinase 224 H CK-MB (CK-2) 30.7 H CK-MB (CK-2) Rel Index 13.7 H Troponin T 0.227 H* D C-Reactive Protein Albumin Triglycerides LDL Cholesterol Direct HDL Cholesterol Urine WBC (Auto) 12/02/18 12/02/18 12/02/18 07:52 10:50 10:50 WBC RBC Hgb Hct MCH RDW Plt Count Seg Neuts % (Manual) Lymphocytes % (Manual) Monocytes % (Manual) Eosinophils % (Manual) Basophils % (Manual) Nucleated RBC % Seg Neutrophils # Seg Neutrophils # Man Lymphocytes # (Manual) Monocytes # (Manual) Eosinophils # (Manual) Basophils # (Manual) PT INR D-Dimer Heparin Anti-Xa Level POC ABG pH 7.150 L POC ABG pCO2 56.3 H POC ABG pO2 53 L Sodium Potassium Chloride Carbon Dioxide BUN Creatinine Glucose POC Glucose Lactic Acid Calcium Phosphorus Magnesium AST Total Creatine Kinase 1322 H CK-MB (CK-2) 216.7 H CK-MB (CK-2) Rel Index 16.3 H Troponin T 0.871 H* D C-Reactive Protein 4.30 H Albumin Triglycerides LDL Cholesterol Direct HDL Cholesterol Urine WBC (Auto) 12/02/18 12/02/18 12/02/18 10:50 10:50 17:46 WBC RBC Hgb Hct MCH RDW Plt Count Seg Neuts % (Manual) Lymphocytes % (Manual) Monocytes % (Manual) Eosinophils % (Manual) Basophils % (Manual) Nucleated RBC % Seg Neutrophils # Seg Neutrophils # Man Lymphocytes # (Manual) Monocytes # (Manual) Eosinophils # (Manual) Basophils # (Manual) PT INR 1.15 H D-Dimer Heparin Anti-Xa Level POC ABG pH POC ABG pCO2 POC ABG pO2 Sodium Potassium Chloride Carbon Dioxide BUN Creatinine Glucose POC Glucose 135 H Lactic Acid 5.90 H* Calcium Phosphorus Magnesium AST Total Creatine Kinase CK-MB (CK-2) CK-MB (CK-2) Rel Index Troponin T C-Reactive Protein Albumin Triglycerides LDL Cholesterol Direct HDL Cholesterol Urine WBC (Auto) 12/02/18 12/02/18 12/03/18 18:09 20:18 01:47 WBC RBC Hgb Hct MCH RDW Plt Count Seg Neuts % (Manual) Lymphocytes % (Manual) Monocytes % (Manual) Eosinophils % (Manual) Basophils % (Manual) Nucleated RBC % Seg Neutrophils # Seg Neutrophils # Man Lymphocytes # (Manual) Monocytes # (Manual) Eosinophils # (Manual) Basophils # (Manual) PT INR D-Dimer Heparin Anti-Xa Level < 0.10 L POC ABG pH 7.167 L 7.118 L POC ABG pCO2 52.6 H 55.1 H POC ABG pO2 79 L Sodium Potassium Chloride Carbon Dioxide BUN Creatinine Glucose POC Glucose Lactic Acid Calcium Phosphorus Magnesium AST Total Creatine Kinase CK-MB (CK-2) CK-MB (CK-2) Rel Index Troponin T C-Reactive Protein Albumin Triglycerides LDL Cholesterol Direct HDL Cholesterol Urine WBC (Auto) 12/03/18 12/03/18 12/03/18 04:07 04:07 06:30 WBC 26.3 H RBC Hgb Hct MCH RDW 15.9 H Plt Count Seg Neuts % (Manual) 76.0 H Lymphocytes % (Manual) 6.0 L Monocytes % (Manual) Eosinophils % (Manual) Basophils % (Manual) Nucleated RBC % Seg Neutrophils # 24.3 H Seg Neutrophils # Man 20.0 H Lymphocytes # (Manual) Monocytes # (Manual) Eosinophils # (Manual) Basophils # (Manual) PT INR D-Dimer Heparin Anti-Xa Level POC ABG pH 7.326 L POC ABG pCO2 POC ABG pO2 290 H Sodium Potassium 3.5 L Chloride Carbon Dioxide 21 L BUN 19 H Creatinine Glucose 252 H POC Glucose Lactic Acid Calcium 6.7 L D Phosphorus Magnesium AST Total Creatine Kinase CK-MB (CK-2) CK-MB (CK-2) Rel Index Troponin T C-Reactive Protein Albumin Triglycerides LDL Cholesterol Direct HDL Cholesterol Urine WBC (Auto) 12/03/18 12/03/18 12/03/18 09:07 09:07 09:07 WBC RBC Hgb Hct MCH RDW Plt Count Seg Neuts % (Manual) Lymphocytes % (Manual) Monocytes % (Manual) Eosinophils % (Manual) Basophils % (Manual) Nucleated RBC % Seg Neutrophils # Seg Neutrophils # Man Lymphocytes # (Manual) Monocytes # (Manual) Eosinophils # (Manual) Basophils # (Manual) PT INR D-Dimer Heparin Anti-Xa Level < 0.10 L POC ABG pH POC ABG pCO2 POC ABG pO2 Sodium Potassium Chloride Carbon Dioxide BUN Creatinine Glucose POC Glucose Lactic Acid 2.90 H* Calcium Phosphorus Magnesium 1.20 L AST Total Creatine Kinase CK-MB (CK-2) CK-MB (CK-2) Rel Index Troponin T C-Reactive Protein Albumin Triglycerides LDL Cholesterol Direct HDL Cholesterol Urine WBC (Auto) 12/03/18 12/03/18 12/04/18 11:51 18:11 05:16 WBC RBC Hgb Hct MCH RDW Plt Count Seg Neuts % (Manual) Lymphocytes % (Manual) Monocytes % (Manual) Eosinophils % (Manual) Basophils % (Manual) Nucleated RBC % Seg Neutrophils # Seg Neutrophils # Man Lymphocytes # (Manual) Monocytes # (Manual) Eosinophils # (Manual) Basophils # (Manual) PT INR D-Dimer Heparin Anti-Xa Level POC ABG pH 7.464 H POC ABG pCO2 33.7 L POC ABG pO2 Sodium Potassium Chloride Carbon Dioxide BUN Creatinine Glucose POC Glucose 158 H 129 H Lactic Acid Calcium Phosphorus Magnesium AST Total Creatine Kinase CK-MB (CK-2) CK-MB (CK-2) Rel Index Troponin T C-Reactive Protein Albumin Triglycerides LDL Cholesterol Direct HDL Cholesterol Urine WBC (Auto) 12/04/18 12/04/18 12/04/18 05:23 05:23 05:23 WBC 23.7 H RBC 3.04 L Hgb 8.3 L Hct 25.2 L D MCH 27 L RDW 16.0 H Plt Count Seg Neuts % (Manual) 97.0 H Lymphocytes % (Manual) 1.0 L Monocytes % (Manual) Eosinophils % (Manual) Basophils % (Manual) Nucleated RBC % Seg Neutrophils # Seg Neutrophils # Man 23.0 H Lymphocytes # (Manual) 0.2 L Monocytes # (Manual) Eosinophils # (Manual) Basophils # (Manual) PT INR D-Dimer Heparin Anti-Xa Level POC ABG pH POC ABG pCO2 POC ABG pO2 Sodium 136 L Potassium 2.5 L* D Chloride 92.9 L Carbon Dioxide 36 H D BUN Creatinine Glucose 528 H* POC Glucose Lactic Acid 2.20 H* Calcium 6.0 L Phosphorus Magnesium AST Total Creatine Kinase CK-MB (CK-2) CK-MB (CK-2) Rel Index Troponin T C-Reactive Protein Albumin Triglycerides LDL Cholesterol Direct HDL Cholesterol Urine WBC (Auto) 12/04/18 12/04/18 12/04/18 05:23 08:03 08:03 WBC RBC Hgb Hct MCH RDW Plt Count Seg Neuts % (Manual) Lymphocytes % (Manual) Monocytes % (Manual) Eosinophils % (Manual) Basophils % (Manual) Nucleated RBC % Seg Neutrophils # Seg Neutrophils # Man Lymphocytes # (Manual) Monocytes # (Manual) Eosinophils # (Manual) Basophils # (Manual) PT INR D-Dimer Heparin Anti-Xa Level POC ABG pH POC ABG pCO2 POC ABG pO2 Sodium Potassium Chloride Carbon Dioxide BUN Creatinine Glucose POC Glucose Lactic Acid 2.90 H* Calcium Phosphorus Magnesium 1.40 L AST Total Creatine Kinase CK-MB (CK-2) CK-MB (CK-2) Rel Index Troponin T C-Reactive Protein 32.60 H Albumin Triglycerides LDL Cholesterol Direct HDL Cholesterol Urine WBC (Auto) 12/04/18 12/04/18 12/04/18 12:20 12:24 12:53 WBC RBC Hgb Hct MCH RDW Plt Count Seg Neuts % (Manual) Lymphocytes % (Manual) Monocytes % (Manual) Eosinophils % (Manual) Basophils % (Manual) Nucleated RBC % Seg Neutrophils # Seg Neutrophils # Man Lymphocytes # (Manual) Monocytes # (Manual) Eosinophils # (Manual) Basophils # (Manual) PT INR D-Dimer Heparin Anti-Xa Level POC ABG pH POC ABG pCO2 POC ABG pO2 Sodium Potassium 3.2 L D Chloride Carbon Dioxide BUN Creatinine Glucose 170 H POC Glucose 52 L 54 L Lactic Acid Calcium 6.7 L Phosphorus Magnesium AST Total Creatine Kinase CK-MB (CK-2) CK-MB (CK-2) Rel Index Troponin T C-Reactive Protein Albumin Triglycerides LDL Cholesterol Direct HDL Cholesterol Urine WBC (Auto) 12/04/18 12/05/18 12/05/18 13:06 05:22 05:22 WBC 26.1 H RBC 3.61 L Hgb 9.7 L Hct 30.1 L MCH 27 L RDW 16.5 H Plt Count Seg Neuts % (Manual) Lymphocytes % (Manual) Monocytes % (Manual) Eosinophils % (Manual) Basophils % (Manual) Nucleated RBC % Seg Neutrophils # Seg Neutrophils # Man Lymphocytes # (Manual) Monocytes # (Manual) Eosinophils # (Manual) Basophils # (Manual) PT INR D-Dimer Heparin Anti-Xa Level POC ABG pH POC ABG pCO2 POC ABG pO2 Sodium Potassium Chloride 113.9 H Carbon Dioxide BUN Creatinine Glucose POC Glucose 171 H Lactic Acid Calcium 7.8 L D Phosphorus Magnesium 2.50 H AST Total Creatine Kinase CK-MB (CK-2) CK-MB (CK-2) Rel Index Troponin T C-Reactive Protein Albumin Triglycerides LDL Cholesterol Direct HDL Cholesterol Urine WBC (Auto) 12/05/18 12/05/18 12/06/18 05:49 21:04 04:36 WBC 22.6 H RBC 3.62 L Hgb 9.9 L Hct 30.0 L MCH 27 L RDW 16.4 H Plt Count Seg Neuts % (Manual) 90.0 H Lymphocytes % (Manual) 6.0 L Monocytes % (Manual) Eosinophils % (Manual) Basophils % (Manual) Nucleated RBC % Seg Neutrophils # Seg Neutrophils # Man 20.3 H Lymphocytes # (Manual) Monocytes # (Manual) Eosinophils # (Manual) Basophils # (Manual) PT INR D-Dimer Heparin Anti-Xa Level 0.14 L POC ABG pH 7.315 L POC ABG pCO2 POC ABG pO2 Sodium Potassium Chloride Carbon Dioxide BUN Creatinine Glucose POC Glucose Lactic Acid Calcium Phosphorus Magnesium AST Total Creatine Kinase CK-MB (CK-2) CK-MB (CK-2) Rel Index Troponin T C-Reactive Protein Albumin Triglycerides LDL Cholesterol Direct HDL Cholesterol Urine WBC (Auto) 12/06/18 12/06/18 12/06/18 04:36 04:36 05:37 WBC RBC Hgb Hct MCH RDW Plt Count Seg Neuts % (Manual) Lymphocytes % (Manual) Monocytes % (Manual) Eosinophils % (Manual) Basophils % (Manual) Nucleated RBC % Seg Neutrophils # Seg Neutrophils # Man Lymphocytes # (Manual) Monocytes # (Manual) Eosinophils # (Manual) Basophils # (Manual) PT INR D-Dimer Heparin Anti-Xa Level < 0.10 L POC ABG pH POC ABG pCO2 POC ABG pO2 Sodium Potassium Chloride 111.6 H Carbon Dioxide BUN Creatinine Glucose 114 H POC Glucose 121 H Lactic Acid Calcium 8.0 L Phosphorus Magnesium AST 41 H Total Creatine Kinase CK-MB (CK-2) CK-MB (CK-2) Rel Index Troponin T C-Reactive Protein Albumin 2.3 L Triglycerides LDL Cholesterol Direct HDL Cholesterol Urine WBC (Auto) 12/06/18 12/06/18 12/06/18 11:46 14:15 18:34 WBC RBC Hgb Hct MCH RDW Plt Count Seg Neuts % (Manual) Lymphocytes % (Manual) Monocytes % (Manual) Eosinophils % (Manual) Basophils % (Manual) Nucleated RBC % Seg Neutrophils # Seg Neutrophils # Man Lymphocytes # (Manual) Monocytes # (Manual) Eosinophils # (Manual) Basophils # (Manual) PT INR D-Dimer Heparin Anti-Xa Level 1.22 H POC ABG pH POC ABG pCO2 POC ABG pO2 Sodium Potassium Chloride Carbon Dioxide BUN Creatinine Glucose POC Glucose 122 H 110 H Lactic Acid Calcium Phosphorus Magnesium AST Total Creatine Kinase CK-MB (CK-2) CK-MB (CK-2) Rel Index Troponin T C-Reactive Protein Albumin Triglycerides LDL Cholesterol Direct HDL Cholesterol Urine WBC (Auto) 12/06/18 12/06/18 12/07/18 23:00 23:11 03:23 WBC RBC Hgb Hct MCH RDW Plt Count Seg Neuts % (Manual) Lymphocytes % (Manual) Monocytes % (Manual) Eosinophils % (Manual) Basophils % (Manual) Nucleated RBC % Seg Neutrophils # Seg Neutrophils # Man Lymphocytes # (Manual) Monocytes # (Manual) Eosinophils # (Manual) Basophils # (Manual) PT INR D-Dimer Heparin Anti-Xa Level 0.15 L POC ABG pH POC ABG pCO2 POC ABG pO2 60 L Sodium Potassium Chloride Carbon Dioxide BUN Creatinine Glucose POC Glucose 138 H Lactic Acid Calcium Phosphorus Magnesium AST Total Creatine Kinase CK-MB (CK-2) CK-MB (CK-2) Rel Index Troponin T C-Reactive Protein Albumin Triglycerides LDL Cholesterol Direct HDL Cholesterol Urine WBC (Auto) 12/07/18 12/07/18 12/07/18 04:45 04:45 05:47 WBC 16.6 H RBC 3.56 L Hgb 9.7 L Hct 29.4 L MCH 27 L RDW 15.9 H Plt Count Seg Neuts % (Manual) 86.0 H Lymphocytes % (Manual) 12.0 L Monocytes % (Manual) Eosinophils % (Manual) Basophils % (Manual) Nucleated RBC % Seg Neutrophils # Seg Neutrophils # Man 14.3 H Lymphocytes # (Manual) Monocytes # (Manual) Eosinophils # (Manual) Basophils # (Manual) PT INR D-Dimer Heparin Anti-Xa Level POC ABG pH POC ABG pCO2 POC ABG pO2 Sodium Potassium 3.2 L Chloride 107.6 H Carbon Dioxide BUN 20 H Creatinine Glucose 138 H POC Glucose 160 H Lactic Acid Calcium 8.0 L Phosphorus Magnesium AST Total Creatine Kinase CK-MB (CK-2) CK-MB (CK-2) Rel Index Troponin T C-Reactive Protein Albumin Triglycerides LDL Cholesterol Direct HDL Cholesterol Urine WBC (Auto) 12/07/18 12/07/18 12/07/18 06:45 09:14 12:46 WBC RBC Hgb Hct MCH RDW Plt Count Seg Neuts % (Manual) Lymphocytes % (Manual) Monocytes % (Manual) Eosinophils % (Manual) Basophils % (Manual) Nucleated RBC % Seg Neutrophils # Seg Neutrophils # Man Lymphocytes # (Manual) Monocytes # (Manual) Eosinophils # (Manual) Basophils # (Manual) PT INR D-Dimer Heparin Anti-Xa Level < 0.10 L POC ABG pH POC ABG pCO2 POC ABG pO2 Sodium Potassium Chloride Carbon Dioxide BUN Creatinine Glucose POC Glucose 129 H Lactic Acid Calcium Phosphorus 1.80 L Magnesium AST Total Creatine Kinase CK-MB (CK-2) CK-MB (CK-2) Rel Index Troponin T C-Reactive Protein Albumin Triglycerides LDL Cholesterol Direct HDL Cholesterol Urine WBC (Auto) 12/07/18 12/07/18 12/08/18 17:33 23:42 05:09 WBC RBC Hgb Hct MCH RDW Plt Count Seg Neuts % (Manual) Lymphocytes % (Manual) Monocytes % (Manual) Eosinophils % (Manual) Basophils % (Manual) Nucleated RBC % Seg Neutrophils # Seg Neutrophils # Man Lymphocytes # (Manual) Monocytes # (Manual) Eosinophils # (Manual) Basophils # (Manual) PT INR D-Dimer Heparin Anti-Xa Level POC ABG pH POC ABG pCO2 POC ABG pO2 Sodium Potassium Chloride Carbon Dioxide BUN Creatinine Glucose POC Glucose 131 H 141 H 151 H Lactic Acid Calcium Phosphorus Magnesium AST Total Creatine Kinase CK-MB (CK-2) CK-MB (CK-2) Rel Index Troponin T C-Reactive Protein Albumin Triglycerides LDL Cholesterol Direct HDL Cholesterol Urine WBC (Auto) 12/08/18 12/08/18 12/08/18 06:10 06:10 12:03 WBC 22.7 H RBC 3.50 L Hgb 9.4 L Hct 28.8 L MCH 27 L RDW 16.3 H Plt Count Seg Neuts % (Manual) Lymphocytes % (Manual) Monocytes % (Manual) Eosinophils % (Manual) 10.0 H Basophils % (Manual) Nucleated RBC % Seg Neutrophils # Seg Neutrophils # Man 14.1 H Lymphocytes # (Manual) 6.1 H Monocytes # (Manual) Eosinophils # (Manual) 2.3 H Basophils # (Manual) PT INR D-Dimer Heparin Anti-Xa Level POC ABG pH POC ABG pCO2 POC ABG pO2 Sodium Potassium 3.5 L Chloride 108.8 H Carbon Dioxide BUN 23 H Creatinine 0.6 L Glucose 140 H POC Glucose 119 H Lactic Acid Calcium 8.1 L Phosphorus Magnesium AST Total Creatine Kinase CK-MB (CK-2) CK-MB (CK-2) Rel Index Troponin T C-Reactive Protein Albumin Triglycerides LDL Cholesterol Direct HDL Cholesterol Urine WBC (Auto) 12/08/18 12/08/18 12/08/18 13:19 18:03 18:26 WBC RBC Hgb Hct MCH RDW Plt Count Seg Neuts % (Manual) Lymphocytes % (Manual) Monocytes % (Manual) Eosinophils % (Manual) Basophils % (Manual) Nucleated RBC % Seg Neutrophils # Seg Neutrophils # Man Lymphocytes # (Manual) Monocytes # (Manual) Eosinophils # (Manual) Basophils # (Manual) PT INR D-Dimer Heparin Anti-Xa Level POC ABG pH 7.466 H 7.467 H POC ABG pCO2 POC ABG pO2 71 L Sodium Potassium Chloride Carbon Dioxide BUN Creatinine Glucose POC Glucose 152 H Lactic Acid Calcium Phosphorus Magnesium AST Total Creatine Kinase CK-MB (CK-2) CK-MB (CK-2) Rel Index Troponin T C-Reactive Protein Albumin Triglycerides LDL Cholesterol Direct HDL Cholesterol Urine WBC (Auto) 12/08/18 12/09/18 12/09/18 23:21 04:45 04:45 WBC 27.6 H RBC 3.33 L Hgb 8.8 L Hct 27.4 L MCH 26 L RDW 15.9 H Plt Count Seg Neuts % (Manual) 74.0 H Lymphocytes % (Manual) Monocytes % (Manual) Eosinophils % (Manual) Basophils % (Manual) Nucleated RBC % 2.0 H Seg Neutrophils # Seg Neutrophils # Man 20.4 H Lymphocytes # (Manual) Monocytes # (Manual) Eosinophils # (Manual) 0.6 H Basophils # (Manual) PT INR D-Dimer Heparin Anti-Xa Level POC ABG pH POC ABG pCO2 POC ABG pO2 Sodium 148 H Potassium Chloride 108.7 H Carbon Dioxide BUN 24 H Creatinine Glucose 141 H POC Glucose 130 H Lactic Acid Calcium Phosphorus Magnesium AST Total Creatine Kinase CK-MB (CK-2) CK-MB (CK-2) Rel Index Troponin T C-Reactive Protein Albumin Triglycerides LDL Cholesterol Direct HDL Cholesterol Urine WBC (Auto) 12/09/18 12/09/18 12/09/18 05:18 06:27 12:52 WBC RBC Hgb Hct MCH RDW Plt Count Seg Neuts % (Manual) Lymphocytes % (Manual) Monocytes % (Manual) Eosinophils % (Manual) Basophils % (Manual) Nucleated RBC % Seg Neutrophils # Seg Neutrophils # Man Lymphocytes # (Manual) Monocytes # (Manual) Eosinophils # (Manual) Basophils # (Manual) PT INR D-Dimer Heparin Anti-Xa Level POC ABG pH 7.454 H POC ABG pCO2 POC ABG pO2 Sodium Potassium Chloride Carbon Dioxide BUN Creatinine Glucose POC Glucose 162 H 142 H Lactic Acid Calcium Phosphorus Magnesium AST Total Creatine Kinase CK-MB (CK-2) CK-MB (CK-2) Rel Index Troponin T C-Reactive Protein Albumin Triglycerides LDL Cholesterol Direct HDL Cholesterol Urine WBC (Auto) 12/09/18 12/09/18 12/10/18 18:27 23:54 04:09 WBC 33.7 H RBC 3.56 L Hgb 9.4 L Hct 29.1 L MCH 26 L RDW 15.8 H Plt Count Seg Neuts % (Manual) 78.0 H Lymphocytes % (Manual) Monocytes % (Manual) Eosinophils % (Manual) Basophils % (Manual) Nucleated RBC % Seg Neutrophils # Seg Neutrophils # Man 26.3 H Lymphocytes # (Manual) 6.1 H Monocytes # (Manual) Eosinophils # (Manual) Basophils # (Manual) PT INR D-Dimer Heparin Anti-Xa Level POC ABG pH POC ABG pCO2 POC ABG pO2 Sodium Potassium Chloride Carbon Dioxide BUN Creatinine Glucose POC Glucose 117 H 108 H Lactic Acid Calcium Phosphorus Magnesium AST Total Creatine Kinase CK-MB (CK-2) CK-MB (CK-2) Rel Index Troponin T C-Reactive Protein Albumin Triglycerides LDL Cholesterol Direct HDL Cholesterol Urine WBC (Auto) 12/10/18 12/10/18 12/10/18 04:09 04:57 12:15 WBC RBC Hgb Hct MCH RDW Plt Count Seg Neuts % (Manual) Lymphocytes % (Manual) Monocytes % (Manual) Eosinophils % (Manual) Basophils % (Manual) Nucleated RBC % Seg Neutrophils # Seg Neutrophils # Man Lymphocytes # (Manual) Monocytes # (Manual) Eosinophils # (Manual) Basophils # (Manual) PT INR D-Dimer Heparin Anti-Xa Level POC ABG pH POC ABG pCO2 POC ABG pO2 Sodium 149 H Potassium Chloride 110.5 H Carbon Dioxide 31 H BUN 28 H Creatinine Glucose 129 H POC Glucose 120 H 118 H Lactic Acid Calcium Phosphorus Magnesium AST Total Creatine Kinase CK-MB (CK-2) CK-MB (CK-2) Rel Index Troponin T C-Reactive Protein Albumin Triglycerides LDL Cholesterol Direct HDL Cholesterol Urine WBC (Auto) 12/11/18 12/11/18 12/11/18 00:03 04:45 04:45 WBC 30.8 H RBC 3.38 L Hgb 8.9 L Hct 27.9 L MCH 26 L RDW 15.9 H Plt Count 465 H Seg Neuts % (Manual) 86.0 H Lymphocytes % (Manual) 8.0 L Monocytes % (Manual) Eosinophils % (Manual) Basophils % (Manual) 2.0 H Nucleated RBC % Seg Neutrophils # Seg Neutrophils # Man 26.5 H Lymphocytes # (Manual) Monocytes # (Manual) Eosinophils # (Manual) 0.6 H Basophils # (Manual) 0.6 H PT INR D-Dimer Heparin Anti-Xa Level POC ABG pH POC ABG pCO2 POC ABG pO2 Sodium 146 H Potassium Chloride 107.6 H Carbon Dioxide BUN 25 H Creatinine 0.6 L Glucose 116 H POC Glucose 111 H Lactic Acid Calcium Phosphorus Magnesium AST Total Creatine Kinase CK-MB (CK-2) CK-MB (CK-2) Rel Index Troponin T C-Reactive Protein Albumin Triglycerides LDL Cholesterol Direct HDL Cholesterol Urine WBC (Auto) 12/11/18 12/11/18 12/11/18 05:07 12:18 18:42 WBC RBC Hgb Hct MCH RDW Plt Count Seg Neuts % (Manual) Lymphocytes % (Manual) Monocytes % (Manual) Eosinophils % (Manual) Basophils % (Manual) Nucleated RBC % Seg Neutrophils # Seg Neutrophils # Man Lymphocytes # (Manual) Monocytes # (Manual) Eosinophils # (Manual) Basophils # (Manual) PT INR D-Dimer Heparin Anti-Xa Level POC ABG pH POC ABG pCO2 POC ABG pO2 Sodium Potassium Chloride Carbon Dioxide BUN Creatinine Glucose POC Glucose 106 H 131 H 133 H Lactic Acid Calcium Phosphorus Magnesium AST Total Creatine Kinase CK-MB (CK-2) CK-MB (CK-2) Rel Index Troponin T C-Reactive Protein Albumin Triglycerides LDL Cholesterol Direct HDL Cholesterol Urine WBC (Auto) 12/12/18 12/12/18 12/12/18 12:52 12:52 12:52 WBC 30.2 H RBC Hgb 9.7 L Hct MCH 26 L RDW 16.2 H Plt Count 624 H Seg Neuts % (Manual) 82.0 H Lymphocytes % (Manual) 10.0 L Monocytes % (Manual) Eosinophils % (Manual) Basophils % (Manual) Nucleated RBC % Seg Neutrophils # Seg Neutrophils # Man 24.8 H Lymphocytes # (Manual) Monocytes # (Manual) 1.7 H Eosinophils # (Manual) 0.5 H Basophils # (Manual) PT 17.8 H INR 1.51 H D-Dimer Heparin Anti-Xa Level POC ABG pH POC ABG pCO2 POC ABG pO2 Sodium Potassium Chloride Carbon Dioxide BUN 18 H Creatinine Glucose POC Glucose Lactic Acid Calcium Phosphorus Magnesium AST Total Creatine Kinase CK-MB (CK-2) CK-MB (CK-2) Rel Index Troponin T C-Reactive Protein Albumin Triglycerides LDL Cholesterol Direct HDL Cholesterol Urine WBC (Auto) 12/12/18 12/12/18 12/13/18 17:34 23:35 05:09 WBC 27.7 H RBC 3.34 L Hgb 8.9 L Hct 27.5 L MCH 27 L RDW 15.7 H Plt Count 602 H Seg Neuts % (Manual) 91.0 H Lymphocytes % (Manual) 6.0 L Monocytes % (Manual) Eosinophils % (Manual) Basophils % (Manual) Nucleated RBC % Seg Neutrophils # Seg Neutrophils # Man 25.2 H Lymphocytes # (Manual) Monocytes # (Manual) Eosinophils # (Manual) Basophils # (Manual) PT INR D-Dimer Heparin Anti-Xa Level POC ABG pH POC ABG pCO2 POC ABG pO2 Sodium Potassium Chloride Carbon Dioxide BUN Creatinine Glucose POC Glucose 107 H 120 H Lactic Acid Calcium Phosphorus Magnesium AST Total Creatine Kinase CK-MB (CK-2) CK-MB (CK-2) Rel Index Troponin T C-Reactive Protein Albumin Triglycerides LDL Cholesterol Direct HDL Cholesterol Urine WBC (Auto) 12/13/18 12/13/18 12/13/18 05:09 08:00 11:59 WBC RBC Hgb Hct MCH RDW Plt Count Seg Neuts % (Manual) Lymphocytes % (Manual) Monocytes % (Manual) Eosinophils % (Manual) Basophils % (Manual) Nucleated RBC % Seg Neutrophils # Seg Neutrophils # Man Lymphocytes # (Manual) Monocytes # (Manual) Eosinophils # (Manual) Basophils # (Manual) PT INR D-Dimer Heparin Anti-Xa Level POC ABG pH POC ABG pCO2 POC ABG pO2 Sodium Potassium Chloride 107.2 H Carbon Dioxide BUN Creatinine Glucose 115 H POC Glucose 114 H 108 H Lactic Acid Calcium 8.1 L Phosphorus Magnesium AST Total Creatine Kinase 148 H CK-MB (CK-2) 7.2 H CK-MB (CK-2) Rel Index 4.8 H Troponin T 1.250 H* C-Reactive Protein Albumin Triglycerides LDL Cholesterol Direct HDL Cholesterol Urine WBC (Auto) Chest x-ray: report reviewed (Mild cardiomegaly and pulmonary venous congestion.), image reviewed Allied health notes reviewed: RT
--- NOTE | 2018-12-13 14:16 | Progress Note ---
Assessment and Plan Assessment and plan: 53 -year-old woman with a history of hypertension, hyperlidemia, PVD comes to the emergency room with complaints of chest pain. While she was getting an EKG, she went into cardiac arrest, shocked once for vfib, started on amiodarone drip and intubated. She aspirated copious amount of gastric content. Cousin at bedside, R PAST MEDICAL HISTORY:hypertension, hyperlipidemia, PVD S/p V. fib arrest, requiring cardioversion in the emergency room. MPI 09/16/2018 - normal Echo 09/16/2018 - normal LVEF -Cardiology considering further eval with coronary angio when pt is off MV cardiogenic shock; improved -for cath tomorrow, and need lifevest prior to dc Septic shock/severe sepsis -Probably secondary to bilateral pneumonia, likely due to aspiration has completed course of abx since 12/11 Acute hypoxemic respiratory failure on MV > 96 hours extubated on 12/10, mgt per pulmonology New onset systolic heart failure with EF of 30-35% -No acute exacerbation -On BB and oral Lasix. Not on ACEI due to labile BP New onset atrial fibrillation. on rate control meds and therapeutic Lovenox per cardiology, planned for lifevest prior to dc Acute right common femoral vein DVT -On therapeutic Lovenox Hypokalemia/Hypomagnesemia -Improving on repletion, will monitor level H/o hypertension. -Blood pressure labile -home antihypertensives on hold Hyperglycemia -was likely due to acute stress/acute illness, no hx of dm and a1c is 5.6 Hyperlipidemia. -Continue statin. Peripheral vascular disease -Cont cilostazol Normocytic anemia, likely chronic -H&H stable, will monitor Marijuana use -Cessation recommended Medication non-compliance -Patient counseled Obesity with BMI of 33.4 -Lifestyle modification recommended History Interval history: sob is improved, no cp/wheezing or vomiting no fever, no vomiting or seizures Hospitalist Physical - Physical exam Narrative exam: General appearance: no acute distress, on NC - EENT Eyes: Present: PERRL ENT: hearing intact - Neck Neck: Present: supple - Respiratory Respiratory effort: normal Respiratory: bilateral: diminished - Cardiovascular Heart Sounds: Present: S1 & S2 - Extremities Extremities: no ischemia - Abdominal General gastrointestinal: soft, non-tender - Psychiatric Psychiatric: appropriate mood/affect, intact judgment & insight - Neurologic Neurologic: CNII-XII intact, moves all extremities - Constitutional Vitals: Temp Pulse Resp BP Pulse Ox 98.4 F 75 19 115/58 96 12/13/18 08:17 12/13/18 13:44 12/13/18 13:44 12/13/18 08:17 12/13/18 07:36 General appearance: Present: no acute distress, other (intubated but awake) Results - Labs CBC & Chem 7: 12/14/18 13:40 12/14/18 05:04 Labs: Laboratory Last Values WBC 27.7 K/mm3 (4.5-11.0) H 12/13/18 05:09 RBC 3.34 M/mm3 (3.65-5.03) L 12/13/18 05:09 Hgb 8.9 gm/dl (10.1-14.3) L 12/13/18 05:09 Hct 27.5 % (30.3-42.9) L 12/13/18 05:09 MCV 82 fl (79-97) 12/13/18 05:09 MCH 27 pg (28-32) L 12/13/18 05:09 MCHC 33 % (30-34) 12/13/18 05:09 RDW 15.7 % (13.2-15.2) H 12/13/18 05:09 Plt Count 602 K/mm3 (140-440) H 12/13/18 05:09 Lymph % (Auto) [place] 12/02/18 00:30 Long % (Auto) 1.3 % (0.0-7.3) 12/03/18 04:07 Eos % (Auto) 0.0 % (0.0-4.3) 12/03/18 04:07 Baso % (Auto) [place] 12/02/18 00:30 Lymph # [place] 12/10/18 04:09 Long # 0.3 K/mm3 (0.0-0.8) 12/03/18 04:07 Eos # 0.0 K/mm3 (0.0-0.4) 12/03/18 04:07 Baso # 0.0 K/mm3 (0.0-0.1) 12/03/18 04:07 Add Manual Diff Complete 12/13/18 05:09 Total Counted 100 12/13/18 05:09 Seg Neutrophils % [place] 12/02/18 00:30 Seg Neuts % (Manual) 91.0 % (40.0-70.0) H 12/13/18 05:09 1.0 % 12/13/18 05:09 6.0 % (13.4-35.0) L 12/13/18 05:09 Reactive Lymphs % (Man) 0 % 12/13/18 05:09 2.0 % (0.0-7.3) 12/13/18 05:09 0 % (0.0-4.3) 12/13/18 05:09 0 % (0.0-1.8) 12/13/18 05:09 0 % 12/13/18 05:09 0 % 12/13/18 05:09 0 % 12/13/18 05:09 0 % 12/13/18 05:09 Nucleated RBC % Not Reportable 12/13/18 05:09 Seg Neutrophils # 24.3 K/mm3 (1.8-7.7) H 12/03/18 04:07 Seg Neutrophils # Man 25.2 K/mm3 (1.8-7.7) H 12/13/18 05:09 Band Neutrophils # 0.3 K/mm3 12/13/18 05:09 1.7 K/mm3 (1.2-5.4) 12/13/18 05:09 Abs React Lymphs (Man) 0.0 K/mm3 12/13/18 05:09 0.6 K/mm3 (0.0-0.8) 12/13/18 05:09 0.0 K/mm3 (0.0-0.4) 12/13/18 05:09 0.0 K/mm3 (0.0-0.1) 12/13/18 05:09 0.0 K/mm3 12/13/18 05:09 0.0 K/mm3 12/13/18 05:09 0.0 K/mm3 12/13/18 05:09 Blast Cells # 0.0 K/mm3 12/13/18 05:09 WBC Morphology Not Reportable 12/13/18 05:09 Hypersegmented Neuts Not Reportable 12/13/18 05:09 Hyposegmented Neuts Not Reportable 12/13/18 05:09 Hypogranular Neuts Not Reportable 12/13/18 05:09 Few 12/13/18 05:09 Not Reportable 12/13/18 05:09 Not Reportable 12/13/18 05:09 Not Reportable 12/13/18 05:09 Not Reportable 12/13/18 05:09 Not Reportable 12/13/18 05:09 Appears decreased 12/13/18 05:09 Not Reportable 12/13/18 05:09 Plt Clumps, EDTA Not Reportable 12/13/18 05:09 Not Reportable 12/13/18 05:09 Not Reportable 12/13/18 05:09 Not Reportable 12/13/18 05:09 Plt Morphology Comment Not Reportable 12/13/18 05:09 RBC Morphology Not Reportable 12/13/18 05:09 Dimorphic RBCs Not Reportable 12/13/18 05:09 Few 12/13/18 05:09 Not Reportable 12/13/18 05:09 Not Reportable 12/13/18 05:09 1+ 12/13/18 05:09 Not Reportable 12/13/18 05:09 Not Reportable 12/13/18 05:09 Not Reportable 12/13/18 05:09 Not Reportable 12/13/18 05:09 Not Reportable 12/13/18 05:09 Not Reportable 12/13/18 05:09 Not Reportable 12/13/18 05:09 Not Reportable 12/13/18 05:09 Not Reportable 12/13/18 05:09 Not Reportable 12/13/18 05:09 Not Reportable 12/13/18 05:09 Not Reportable 12/13/18 05:09 Not Reportable 12/13/18 05:09 Not Reportable 12/13/18 05:09 Not Reportable 12/13/18 05:09 Acanthocytes (Spur) Not Reportable 12/13/18 05:09 Rouleaux Not Reportable 12/13/18 05:09 Not Reportable 12/13/18 05:09 Not Reportable 12/13/18 05:09 Not Reportable 12/13/18 05:09 Not Reportable 12/13/18 05:09 Hem Pathologist Commnt No 12/13/18 05:09 PT 17.8 Sec. (12.2-14.9) H 12/12/18 12:52 INR 1.51 (0.87-1.13) H 12/12/18 12:52 APTT 26.5 Sec. (24.2-36.6) 12/02/18 10:50 1085.94 ng/mlDDU (0-234) H 12/02/18 00:30 Heparin Anti-Xa Level < 0.10 U.I./ml (0.3-0.7) L 12/07/18 06:45 POC ABG pH 7.445 (7.35-7.45) 12/10/18 16:54 POC ABG pCO2 42.2 (35-45) 12/10/18 16:54 POC ABG pO2 95 (80-105) 12/10/18 16:54 POC ABG HCO3 29.0 (22-26 mml/L) 12/10/18 16:54 POC ABG Total CO2 30 (23-27mmol/L) 12/10/18 16:54 POC ABG O2 Sat 98 12/10/18 16:54 POC ABG Base Excess 5 ((-2) - (+3)mmol/L) 12/10/18 16:54 40 % 12/10/18 16:54 Sodium 141 mmol/L (137-145) 12/13/18 05:09 Potassium 3.9 mmol/L (3.6-5.0) 12/13/18 05:09 Chloride 107.2 mmol/L (98-107) H 12/13/18 05:09 Carbon Dioxide 24 mmol/L (22-30) 12/13/18 05:09 14 mmol/L 12/13/18 05:09 BUN 13 mg/dL (7-17) 12/13/18 05:09 0.8 mg/dL (0.7-1.2) 12/13/18 05:09 Estimated GFR > 60 ml/min 12/13/18 05:09 16 % 12/13/18 05:09 Glucose 115 mg/dL (65-100) H 12/13/18 05:09 POC Glucose 108 (70-105) H 12/13/18 11:59 5.6 % (4-6) 12/04/18 08:03 Lactic Acid 1.60 mmol/L (0.7-2.0) 12/05/18 05:22 Calcium 8.1 mg/dL (8.4-10.2) L 12/13/18 05:09 Phosphorus 1.80 mg/dL (2.5-4.5) L 12/07/18 09:14 Magnesium 2.00 mg/dL (1.7-2.3) 12/08/18 06:10 0.30 mg/dL (0.1-1.2) 12/06/18 04:36 AST 41 units/L (5-40) H 12/06/18 04:36 ALT 54 units/L (7-56) 12/06/18 04:36 128 units/L (35-129) 12/06/18 04:36 148 units/L (30-135) H 12/13/18 05:09 CK-MB (CK-2) 7.2 ng/mL (0.0-4.0) H 12/13/18 05:09 CK-MB (CK-2) Rel Index 4.8 (0-4) H 12/13/18 05:09 1.250 ng/mL (0.00-0.029) H* 12/13/18 05:09 32.60 mg/dL (0.00-1.30) H 12/04/18 05:23 6.3 g/dL (6.3-8.2) 12/06/18 04:36 2.3 g/dL (3.9-5) L 12/06/18 04:36 0.6 % 12/06/18 04:36 Triglycerides 358 mg/dL (2-149) H 12/02/18 03:14 Cholesterol 111 mg/dL (50-199) 12/02/18 03:14 42 mg/dL (50-130) L 12/02/18 03:14 29 mg/dL (40-59) L 12/02/18 03:14 3.82 % 12/02/18 03:14 TSH 1.820 mlU/mL (0.270-4.200) 12/07/18 11:24 Free T4 0.96 ng/dL (0.76-1.46) 12/07/18 11:24 Colorless (Yellow) 12/02/18 02:58 Clear (Clear) 12/02/18 02:58 7.0 (5.0-7.0) 12/02/18 02:58 Ur Specific [place] 1.008 (1.003-1.030) 12/02/18 02:58 100 mg/dl mg/dL (Negative) 12/02/18 02:58 >=500 mg/dL (Negative) 12/02/18 02:58 Neg mg/dL (Negative) 12/02/18 02:58 Sm (Negative) 12/02/18 02:58 Neg (Negative) 12/02/18 02:58 Neg (Negative) 12/02/18 02:58 < 2.0 mg/dL (<2.0) 12/02/18 02:58 Ur Leukocyte Esterase Neg (Negative) 12/02/18 02:58 12.0 /HPF (0.0-6.0) H 12/02/18 02:58 7.0 /HPF (0.0-6.0) 12/02/18 02:58 U Epithel Cells (Auto) < 1.0 /HPF (0-13.0) 12/02/18 02:58 Few /HPF 12/02/18 02:58 Presumptive negative 12/02/18 02:58 Presumptive negative 12/02/18 02:58 Ur Barbiturates Screen Presumptive negative 12/02/18 02:58 Ur Phencyclidine Scrn Presumptive negative 12/02/18 02:58 Ur Amphetamines Screen Presumptive negative 12/02/18 02:58 U Benzodiazepines Scrn Presumptive negative 12/02/18 02:58 Presumptive negative 12/02/18 02:58 U Marijuana (THC) Screen Presumptive positive 12/02/18 02:58 Disclamer 12/02/18 02:58 Active Medications - Current Medications Current Medications: Generic Name Dose Route Start Last Admin Trade Name Freq PRN Reason Stop Dose Admin Acetaminophen 650 mg 12/02/18 05:03 Tylenol PO Q4H PRN Pain MILD(1-3)/Fever >100.5/TORRES Albuterol/Ipratropium 1 ampul 12/02/18 08:00 12/13/18 13:43 Duoneb *Not For Prn Use* IH 1 ampul Q6HRT DC Administration Amiodarone HCl 200 mg 12/08/18 10:00 12/13/18 11:40 Cordarone PO Not Given QDAY DC Lipase/Protease/Amylase 1 each 12/05/18 09:15 [place] 10,500 Unit FEEDTUBE PRN PRN For Clogged Feeding Tube Aspirin 81 mg 12/13/18 10:00 12/13/18 11:26 Halfprin Ec PO 81 mg QDAY [facility] Administration Atorvastatin Calcium 40 mg 12/12/18 22:00 12/12/18 21:56 Lipitor PO 40 mg QHS [facility] Administration Cilostazol 100 mg 12/06/18 11:00 12/13/18 11:25 Pletal PO 100 mg BID [facility] Administration Dextrose 25 ml 12/04/18 19:06 D50w (25gm) Syringe IV PRN PRN Hypoglycemia Famotidine 20 mg 12/06/18 10:00 12/13/18 11:25 Pepcid PO 20 mg BID [facility] Administration Furosemide 40 mg 12/07/18 14:00 12/13/18 11:22 Lasix PO Not Given QDAY [facility] Hydralazine HCl 10 mg 12/06/18 09:44 Apresoline IV Q4HR PRN Blood Pressure Hydrophilic Ointment 1 applic 12/02/18 00:45 Vaseline Lip Therapy TP Q2HR PRN Dry Lips Insulin Human Lispro 0 unit 12/04/18 07:00 12/13/18 11:20 Humalog SUB-Q Not Given Q6HR [facility] Protocol Isosorbide Mononitrate 30 mg 12/12/18 14:00 12/13/18 11:25 Imdur PO Not Given QDAY [facility] Lisinopril 20 mg 12/12/18 14:00 12/13/18 11:23 Zestril PO Not Given QDAY [facility] Lorazepam 1 mg 12/06/18 09:26 12/09/18 09:28 Ativan IV 1 mg Q4H PRN Administration Anxiety Metoprolol Tartrate 50 mg 12/11/18 22:00 12/13/18 11:22 Lopressor PO Not Given BID [facility] Multi-Ingred Cream/Lotion/Oil/Oint 1 applic 12/02/18 00:45 Artificial Tears Ophth Oint OU Q4HR PRN Dry Eye(s) Ondansetron HCl 4 mg 12/02/18 05:03 Zofran IV Q8H PRN Nausea And Vomiting Polyethylene Glycol 17 gm 12/11/18 12:37 Miralax 3350 FEEDTUBE QDAY PRN Constipation Simple Syrup 15 ml 12/05/18 09:15 Simple Syrup FEEDTUBE PRN PRN Hypoglycemia Simple Syrup 30 ml 12/05/18 09:15 Simple Syrup FEEDTUBE PRN PRN Hypoglycemia Sodium Bicarbonate 325 mg 12/05/18 09:15 Sodium Bicarbonate FEEDTUBE PRN PRN For Clogged Feeding Tube Sodium Chloride 10 ml 12/02/18 10:00 12/13/18 11:41 Sodium Chloride Flush Syringe 10 Ml IV 10 ml BID DC Administration Sodium Chloride 10 ml 12/02/18 05:03 Sodium Chloride Flush Syringe 10 Ml IV PRN PRN LINE FLUSH Ticagrelor 90 mg 12/12/18 22:00 12/13/18 11:25 Brilinta PO 90 mg BID DC Administration Nutrition/Malnutrition Assess - Dietary Evaluation Nutrition/Malnutrition Findings: Nutrition Notes Start: 12/02/18 08:27 Freq: Status: Active Protocol: Document 12/12/18 11:41 LP (Rec: 12/12/18 11:42 LP [id number]) Nutrition Notes Initial or Follow up Brief Note Subjective/Other Information 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 Nutrition Intervention Follow-Up By: 12/13/18 Additional Comments Follow for intakes
--- NOTE | 2018-12-13 14:17 | Progress Note ---
Assessment and Plan Assessment and plan: 53 -year-old woman with a history of hypertension, hyperlidemia, PVD comes to the emergency room with complaints of chest pain. While she was getting an EKG, she went into cardiac arrest, shocked once for vfib, started on amiodarone drip and intubated. She aspirated copious amount of gastric content. Cousin at bedside, R PAST MEDICAL HISTORY:hypertension, hyperlipidemia, PVD S/p V. fib arrest, requiring cardioversion in the emergency room. MPI 09/16/2018 - normal Echo 09/16/2018 - normal LVEF cardiogenic shock; improved -for cath and need lifevest prior to dc Septic shock/severe sepsis -Probably secondary to bilateral pneumonia, likely due to aspiration has completed course of abx since 12/11 Acute hypoxemic respiratory failure on MV > 96 hours extubated on 12/10, mgt per pulmonology New onset systolic heart failure with EF of 30-35% -No acute exacerbation -On BB and oral Lasix. Not on ACEI due to labile BP New onset atrial fibrillation. on rate control meds and therapeutic Lovenox per cardiology, planned for lifevest prior to dc Acute right common femoral vein DVT -On therapeutic Lovenox Hypokalemia/Hypomagnesemia -Improving on repletion, will monitor level H/o hypertension. -Blood pressure labile -home antihypertensives on hold Hyperglycemia -was likely due to acute stress/acute illness, no hx of dm and a1c is 5.6 Hyperlipidemia. -Continue statin. Peripheral vascular disease -Cont cilostazol Normocytic anemia, likely chronic -H&H stable, will monitor Marijuana use -Cessation recommended Medication non-compliance -Patient counseled Obesity with BMI of 33.4 -Lifestyle modification recommended History Interval history: sob is improved, no cp/wheezing or vomiting no fever, no vomiting or seizures Hospitalist Physical - Physical exam Narrative exam: General appearance: no acute distress, on NC - EENT Eyes: Present: PERRL ENT: hearing intact - Neck Neck: Present: supple - Respiratory Respiratory effort: normal Respiratory: bilateral: diminished - Cardiovascular Heart Sounds: Present: S1 & S2 - Extremities Extremities: no ischemia - Abdominal General gastrointestinal: soft, non-tender - Psychiatric Psychiatric: appropriate mood/affect, intact judgment & insight - Neurologic Neurologic: CNII-XII intact, moves all extremities - Constitutional Vitals: Temp Pulse Resp BP Pulse Ox 98.4 F 75 19 115/58 96 12/13/18 08:17 12/13/18 13:44 12/13/18 13:44 12/13/18 08:17 12/13/18 07:36 General appearance: Present: no acute distress, other (intubated but awake) Results - Labs CBC & Chem 7: 12/14/18 13:40 12/14/18 05:04 Labs: Laboratory Last Values WBC 27.7 K/mm3 (4.5-11.0) H 12/13/18 05:09 RBC 3.34 M/mm3 (3.65-5.03) L 12/13/18 05:09 Hgb 8.9 gm/dl (10.1-14.3) L 12/13/18 05:09 Hct 27.5 % (30.3-42.9) L 12/13/18 05:09 MCV 82 fl (79-97) 12/13/18 05:09 MCH 27 pg (28-32) L 12/13/18 05:09 MCHC 33 % (30-34) 12/13/18 05:09 RDW 15.7 % (13.2-15.2) H 12/13/18 05:09 Plt Count 602 K/mm3 (140-440) H 12/13/18 05:09 Lymph % (Auto) Scientific Database Curator 12/02/18 00:30 Sullivan % (Auto) 1.3 % (0.0-7.3) 12/03/18 04:07 Eos % (Auto) 0.0 % (0.0-4.3) 12/03/18 04:07 Baso % (Auto) Scientific Database Curator 12/02/18 00:30 Lymph # Scientific Database Curator 12/10/18 04:09 Sullivan # 0.3 K/mm3 (0.0-0.8) 12/03/18 04:07 Eos # 0.0 K/mm3 (0.0-0.4) 12/03/18 04:07 Baso # 0.0 K/mm3 (0.0-0.1) 12/03/18 04:07 Add Manual Diff Complete 12/13/18 05:09 Total Counted 100 12/13/18 05:09 Seg Neutrophils % Scientific Database Curator 12/02/18 00:30 Seg Neuts % (Manual) 91.0 % (40.0-70.0) H 12/13/18 05:09 1.0 % 12/13/18 05:09 6.0 % (13.4-35.0) L 12/13/18 05:09 Reactive Lymphs % (Man) 0 % 12/13/18 05:09 2.0 % (0.0-7.3) 12/13/18 05:09 0 % (0.0-4.3) 12/13/18 05:09 0 % (0.0-1.8) 12/13/18 05:09 0 % 12/13/18 05:09 0 % 12/13/18 05:09 0 % 12/13/18 05:09 0 % 12/13/18 05:09 Nucleated RBC % Not Reportable 12/13/18 05:09 Seg Neutrophils # 24.3 K/mm3 (1.8-7.7) H 12/03/18 04:07 Seg Neutrophils # Man 25.2 K/mm3 (1.8-7.7) H 12/13/18 05:09 Band Neutrophils # 0.3 K/mm3 12/13/18 05:09 1.7 K/mm3 (1.2-5.4) 12/13/18 05:09 Abs React Lymphs (Man) 0.0 K/mm3 12/13/18 05:09 0.6 K/mm3 (0.0-0.8) 12/13/18 05:09 0.0 K/mm3 (0.0-0.4) 12/13/18 05:09 0.0 K/mm3 (0.0-0.1) 12/13/18 05:09 0.0 K/mm3 12/13/18 05:09 0.0 K/mm3 12/13/18 05:09 0.0 K/mm3 12/13/18 05:09 Blast Cells # 0.0 K/mm3 12/13/18 05:09 WBC Morphology Not Reportable 12/13/18 05:09 Hypersegmented Neuts Not Reportable 12/13/18 05:09 Hyposegmented Neuts Not Reportable 12/13/18 05:09 Hypogranular Neuts Not Reportable 12/13/18 05:09 Few 12/13/18 05:09 Not Reportable 12/13/18 05:09 Not Reportable 12/13/18 05:09 Not Reportable 12/13/18 05:09 Not Reportable 12/13/18 05:09 Not Reportable 12/13/18 05:09 Appears decreased 12/13/18 05:09 Not Reportable 12/13/18 05:09 Plt Clumps, EDTA Not Reportable 12/13/18 05:09 Not Reportable 12/13/18 05:09 Not Reportable 12/13/18 05:09 Not Reportable 12/13/18 05:09 Plt Morphology Comment Not Reportable 12/13/18 05:09 RBC Morphology Not Reportable 12/13/18 05:09 Dimorphic RBCs Not Reportable 12/13/18 05:09 Few 12/13/18 05:09 Not Reportable 12/13/18 05:09 Not Reportable 12/13/18 05:09 1+ 12/13/18 05:09 Not Reportable 12/13/18 05:09 Not Reportable 12/13/18 05:09 Not Reportable 12/13/18 05:09 Not Reportable 12/13/18 05:09 Not Reportable 12/13/18 05:09 Not Reportable 12/13/18 05:09 Not Reportable 12/13/18 05:09 Not Reportable 12/13/18 05:09 Not Reportable 12/13/18 05:09 Not Reportable 12/13/18 05:09 Not Reportable 12/13/18 05:09 Not Reportable 12/13/18 05:09 Not Reportable 12/13/18 05:09 Not Reportable 12/13/18 05:09 Not Reportable 12/13/18 05:09 Acanthocytes (Spur) Not Reportable 12/13/18 05:09 Rouleaux Not Reportable 12/13/18 05:09 Not Reportable 12/13/18 05:09 Not Reportable 12/13/18 05:09 Not Reportable 12/13/18 05:09 Not Reportable 12/13/18 05:09 Hem Pathologist Commnt No 12/13/18 05:09 PT 17.8 Sec. (12.2-14.9) H 12/12/18 12:52 INR 1.51 (0.87-1.13) H 12/12/18 12:52 APTT 26.5 Sec. (24.2-36.6) 12/02/18 10:50 1085.94 ng/mlDDU (0-234) H 12/02/18 00:30 Heparin Anti-Xa Level < 0.10 U.I./ml (0.3-0.7) L 12/07/18 06:45 POC ABG pH 7.445 (7.35-7.45) 12/10/18 16:54 POC ABG pCO2 42.2 (35-45) 12/10/18 16:54 POC ABG pO2 95 (80-105) 12/10/18 16:54 POC ABG HCO3 29.0 (22-26 mml/L) 12/10/18 16:54 POC ABG Total CO2 30 (23-27mmol/L) 12/10/18 16:54 POC ABG O2 Sat 98 12/10/18 16:54 POC ABG Base Excess 5 ((-2) - (+3)mmol/L) 12/10/18 16:54 40 % 12/10/18 16:54 Sodium 141 mmol/L (137-145) 12/13/18 05:09 Potassium 3.9 mmol/L (3.6-5.0) 12/13/18 05:09 Chloride 107.2 mmol/L (98-107) H 12/13/18 05:09 Carbon Dioxide 24 mmol/L (22-30) 12/13/18 05:09 14 mmol/L 12/13/18 05:09 BUN 13 mg/dL (7-17) 12/13/18 05:09 0.8 mg/dL (0.7-1.2) 12/13/18 05:09 Estimated GFR > 60 ml/min 12/13/18 05:09 16 % 12/13/18 05:09 Glucose 115 mg/dL (65-100) H 12/13/18 05:09 POC Glucose 108 (70-105) H 12/13/18 11:59 5.6 % (4-6) 12/04/18 08:03 Lactic Acid 1.60 mmol/L (0.7-2.0) 12/05/18 05:22 Calcium 8.1 mg/dL (8.4-10.2) L 12/13/18 05:09 Phosphorus 1.80 mg/dL (2.5-4.5) L 12/07/18 09:14 Magnesium 2.00 mg/dL (1.7-2.3) 12/08/18 06:10 0.30 mg/dL (0.1-1.2) 12/06/18 04:36 AST 41 units/L (5-40) H 12/06/18 04:36 ALT 54 units/L (7-56) 12/06/18 04:36 128 units/L (35-129) 12/06/18 04:36 148 units/L (30-135) H 12/13/18 05:09 CK-MB (CK-2) 7.2 ng/mL (0.0-4.0) H 12/13/18 05:09 CK-MB (CK-2) Rel Index 4.8 (0-4) H 12/13/18 05:09 1.250 ng/mL (0.00-0.029) H* 12/13/18 05:09 32.60 mg/dL (0.00-1.30) H 12/04/18 05:23 6.3 g/dL (6.3-8.2) 12/06/18 04:36 2.3 g/dL (3.9-5) L 12/06/18 04:36 0.6 % 12/06/18 04:36 Triglycerides 358 mg/dL (2-149) H 12/02/18 03:14 Cholesterol 111 mg/dL (50-199) 12/02/18 03:14 42 mg/dL (50-130) L 12/02/18 03:14 29 mg/dL (40-59) L 12/02/18 03:14 3.82 % 12/02/18 03:14 TSH 1.820 mlU/mL (0.270-4.200) 12/07/18 11:24 Free T4 0.96 ng/dL (0.76-1.46) 12/07/18 11:24 Colorless (Yellow) 12/02/18 02:58 Clear (Clear) 12/02/18 02:58 7.0 (5.0-7.0) 12/02/18 02:58 Ur Specific Dodge 1.008 (1.003-1.030) 12/02/18 02:58 100 mg/dl mg/dL (Negative) 12/02/18 02:58 >=500 mg/dL (Negative) 12/02/18 02:58 Neg mg/dL (Negative) 12/02/18 02:58 Sm (Negative) 12/02/18 02:58 Neg (Negative) 12/02/18 02:58 Neg (Negative) 12/02/18 02:58 < 2.0 mg/dL (<2.0) 12/02/18 02:58 Ur Leukocyte Esterase Neg (Negative) 12/02/18 02:58 12.0 /HPF (0.0-6.0) H 12/02/18 02:58 7.0 /HPF (0.0-6.0) 12/02/18 02:58 U Epithel Cells (Auto) < 1.0 /HPF (0-13.0) 12/02/18 02:58 Few /HPF 12/02/18 02:58 Presumptive negative 12/02/18 02:58 Presumptive negative 12/02/18 02:58 Ur Barbiturates Screen Presumptive negative 12/02/18 02:58 Ur Phencyclidine Scrn Presumptive negative 12/02/18 02:58 Ur Amphetamines Screen Presumptive negative 12/02/18 02:58 U Benzodiazepines Scrn Presumptive negative 12/02/18 02:58 Presumptive negative 12/02/18 02:58 U Marijuana (THC) Screen Presumptive positive 12/02/18 02:58 Disclamer 12/02/18 02:58 Active Medications - Current Medications Current Medications: Generic Name Dose Route Start Last Admin Trade Name Freq PRN Reason Stop Dose Admin Acetaminophen 650 mg 12/02/18 05:03 Tylenol PO Q4H PRN Pain MILD(1-3)/Fever >100.5/TORRES Albuterol/Ipratropium 1 ampul 12/02/18 08:00 12/13/18 13:43 Duoneb *Not For Prn Use* IH 1 ampul Q6HRT DC Administration Amiodarone HCl 200 mg 12/08/18 10:00 12/13/18 11:40 Cordarone PO Not Given QDAY DC Lipase/Protease/Amylase 1 each 12/05/18 09:[address] 10,500 Unit FEEDTUBE PRN PRN For Clogged Feeding Tube Aspirin 81 mg 12/13/18 10:00 12/13/18 11:26 Halfprin Ec PO 81 mg QDAY [facility] Administration Atorvastatin Calcium 40 mg 12/12/18 22:00 12/12/18 21:56 Lipitor PO 40 mg QHS [facility] Administration Cilostazol 100 mg 12/06/18 11:00 12/13/18 11:25 Pletal PO 100 mg BID [facility] Administration Dextrose 25 ml 12/04/18 19:06 D50w (25gm) Syringe IV PRN PRN Hypoglycemia Famotidine 20 mg 12/06/18 10:00 12/13/18 11:25 Pepcid PO 20 mg BID [facility] Administration Furosemide 40 mg 12/07/18 14:00 12/13/18 11:22 Lasix PO Not Given QDAY [facility] Hydralazine HCl 10 mg 12/06/18 09:44 Apresoline IV Q4HR PRN Blood Pressure Hydrophilic Ointment 1 applic 12/02/18 00:45 Vaseline Lip Therapy TP Q2HR PRN Dry Lips Insulin Human Lispro 0 unit 12/04/18 07:00 12/13/18 11:20 Humalog SUB-Q Not Given Q6HR [facility] Protocol Isosorbide Mononitrate 30 mg 12/12/18 14:00 12/13/18 11:25 Imdur PO Not Given QDAY [facility] Lisinopril 20 mg 12/12/18 14:00 12/13/18 11:23 Zestril PO Not Given QDAY [facility] Lorazepam 1 mg 12/06/18 09:26 12/09/18 09:28 Ativan IV 1 mg Q4H PRN Administration Anxiety Metoprolol Tartrate 50 mg 12/11/18 22:00 12/13/18 11:22 Lopressor PO Not Given BID [facility] Multi-Ingred Cream/Lotion/Oil/Oint 1 applic 12/02/18 00:45 Artificial Tears Ophth Oint OU Q4HR PRN Dry Eye(s) Ondansetron HCl 4 mg 12/02/18 05:03 Zofran IV Q8H PRN Nausea And Vomiting Polyethylene Glycol 17 gm 12/11/18 12:37 Miralax 3350 FEEDTUBE QDAY PRN Constipation Simple Syrup 15 ml 12/05/18 09:15 Simple Syrup FEEDTUBE PRN PRN Hypoglycemia Simple Syrup 30 ml 12/05/18 09:15 Simple Syrup FEEDTUBE PRN PRN Hypoglycemia Sodium Bicarbonate 325 mg 12/05/18 09:15 Sodium Bicarbonate FEEDTUBE PRN PRN For Clogged Feeding Tube Sodium Chloride 10 ml 12/02/18 10:00 12/13/18 11:41 Sodium Chloride Flush Syringe 10 Ml IV 10 ml BID DC Administration Sodium Chloride 10 ml 12/02/18 05:03 Sodium Chloride Flush Syringe 10 Ml IV PRN PRN LINE FLUSH Ticagrelor 90 mg 12/12/18 22:00 12/13/18 11:25 Brilinta PO 90 mg BID DC Administration Nutrition/Malnutrition Assess - Dietary Evaluation Nutrition/Malnutrition Findings: Nutrition Notes Start: 12/02/18 08:27 Freq: Status: Active Protocol: Document 12/12/18 11:41 LP (Rec: 12/12/18 11:42 LP [id number]) Nutrition Notes Initial or Follow up Brief Note Subjective/Other Information Pt not in room at time of visit at laboratory chief. Nutrition Intervention Follow-Up By: 12/13/18 Additional Comments Follow for intakes
[2018-12-14] MEDS: DUONEB *Not for PRN Use IH SCH ×4 (02:42→20:11)
[2018-12-14 05:36] LABS: Hematocrit 27.4 % (30.3-42.9); Hemoglobin 8.9 gm/dl (10.1-14.3)
[2018-12-14 05:44] LABS: INR 1.35 (0.87-1.13)
[2018-12-14 05:52] LABS: BUN/Creatinine Ratio 10; Blood Urea Nitrogen 8 mg/dL (7-17); Calcium 8.4 mg/dL (8.4-10.2); Hemolysis Index 1
[2018-12-14] MEDS: HumaLOG SUB-Q SCH ×3 (06:06→13:36)
[2018-12-14] MEDS ORDERED: NACL 0.9% 500 ML 500 ML IV SCH (07:00)
[2018-12-14] MEDS: PLETAL PO SCH ×2 (10:00→21:53)
[2018-12-14] MEDS: HALFPRIN EC PO SCH (10:00)
--- NOTE | 2018-12-14 10:47 | Progress Note ---
Assessment and Plan Cultures: 12/02/2018 sputum culture: Usual respiratory nolan 12/02/2018 urine culture: No growth 12/02/2018 blood culture: No growth A/P: 53-year-old female with hypertension, hyperlipidemia, peripheral vascular disease presented to the emergency room on 12/02/2018 with complaints of chest pain, developed V.fib arrest, now with: 1) Shock, multifactorial: Cardiogenic versus septic. Patient with V. fib arrest. Developed bilateral aspiration pneumonia vs pneumonitis. Now alert, oriented, extubated. 2) Bilateral airspace disease with concern for pneumonia with acute respiratory failure: CXR and CT chest showed bilateral airspace disease. Noted to have gastric content aspiration on admission. Cultures negative. Antibiotic course complete. 3) Mixed acidosis: improved 4) V.fib arrest: cardiology following. EF 30-35%. 5) Leukocytosis; trending down. unclear etiology, as patient clinically improving. 6) Acute right common femoral vein DVT - right leg edematous. On Tirofiban. Recs: Continue to monitor off antibiotics [employer] [employer] M: [phone] O:[phone] Subjective Date of service: 12/14/18 Principal diagnosis: Ac hypoxemic resp failure; ARDS; Septic Shock; DVT; Cardiac arrest Interval history: Patient seen and examined. Reports no acute distress. No fevers. Objective - Exam Narrative Exam: Constitutional: awake, no distress, following commands Head, Ears, Nose: Normocephalic, atraumatic. External ears, NG tube in place Eyes: Conjunctivae/corneas clear. No icterus. No ptosis. Neck: Supple, no meningeal signs Oral: moist mucous membranes, fair dentition Cardiovascular: S1, S2 normal. Normal rhythm Respiratory: Good air entry, clear to auscultation bilaterally GI: Soft, non-tender; bowel sounds normal. No peritoneal signs Musculoskeletal: RLE edema 2+, RLE tenderness Skin: No rash or abscess Hem/Lymphatic: No palpable cervical or supraclavicular nodes. No lymphangitis Psych: no agitation Neurological: Moves all extremities, no focal defects - Constitutional Vitals: Vital Signs Temp Pulse Resp BP Pulse Ox 98.2 F 68 18 142/65 97 12/14/18 09:05 12/14/18 09:05 12/14/18 09:05 12/14/18 09:05 12/14/18 09:05 Temperature -Last 24 Hours Temperature 98.2 F Temperature 98.0 F Temperature 98.0 F Temperature 98.4 F Temperature 98.1 F Temperature 98.6 F - Labs CBC & Chem 7: 12/14/18 13:40 12/14/18 05:04 Labs: Abnormal lab results 12/13/18 12/13/18 12/13/18 Range/Units 05:09 11:59 22:07 Hgb (10.1-14.3) gm/dl Hct (30.3-42.9) % Plt Count (140-440) K/mm3 Seg Neuts % (Manual) 91.0 H (40.0-70.0) % Lymphocytes % (Manual) 6.0 L (13.4-35.0) % Seg Neutrophils # Man 25.2 H (1.8-7.7) K/mm3 PT (12.2-14.9) Sec. INR (0.87-1.13) Glucose (65-100) mg/dL POC Glucose 108 H 118 H (70-105) 12/14/18 12/14/18 12/14/18 Range/Units 05:04 05:04 05:04 Hgb 8.9 L (10.1-14.3) gm/dl Hct 27.4 L (30.3-42.9) % Plt Count 647 H (140-440) K/mm3 Seg Neuts % (Manual) (40.0-70.0) % Lymphocytes % (Manual) (13.4-35.0) % Seg Neutrophils # Man (1.8-7.7) K/mm3 PT 16.3 H (12.2-14.9) Sec. INR 1.35 H (0.87-1.13) Glucose 111 H (65-100) mg/dL POC Glucose (70-105)
[2018-12-14] MEDS ORDERED: CALAN ONE (11:43)
[2018-12-14] MEDS ORDERED: XYLOCAINE 2% INFILTRATI ONE (11:43)
[2018-12-14] MEDS ORDERED: HEPARIN/NS 5000 UNIT/500ML(CATH LAB) 1,000 ML IR ONE (11:43)
[2018-12-14] MEDS ORDERED: NITROGLYCERIN SYRINGE 3 ML ONE (11:44)
[2018-12-14] MEDS ORDERED: VERSED ONE (11:44)
[2018-12-14] MEDS ORDERED: NACL 0.9% 500 ML 500 ML ONE (11:49)
[2018-12-14] MEDS: SUBLIMAZE ONE ×2 (12:20→12:25)
[2018-12-14] MEDS: HEPARIN 10,000 UNITS/10 ML ONE ×3 (12:25→12:39)
[2018-12-14] MEDS ORDERED: BRILINTA ONE (12:48)
[2018-12-14] MEDS ORDERED: BABY ASPIRIN ONE (12:48)
[2018-12-14] MEDS: BRILINTA PO SCH ×2 (12:55→21:58)
[2018-12-14] MEDS ORDERED: NACL 0.9% 1000 ML 1,000 ML IV SCH (13:00)
--- NOTE | 2018-12-14 13:00 | Event Note ---
Date: 12/14/18 Patient underwent successful staged third vessel coronary intervention with a 3.5 mm drug-eluting stent to the midright coronary artery. Excellent result, no complications. Procedure was completed via the right radial artery. Recommendations: IV hydration, overnight observation post coronary intervention. Patient is anticipated for discharge tomorrow on guideline directed medical therapy and LifeVest monitor.
--- NOTE | 2018-12-14 13:26 | Progress Note ---
Assessment and Plan Acute hypoxemic respiratory failure, on mechanical ventilatory support. Acute respiratory distress syndrome. Severe sepsis with shock. Aspiration pneumonia. Status post cardiac arrest with return of spontaneous circulation. Obesity. Hypertension. Hyperlipidemia. History of peripheral vascular disease. Leukocytosis that is mild. Elevated D-dimer. Hypercapnic respiratory failure. Elevated serum troponins. Hypokalemia. Mild metabolic acidosis. - follow cath report - gentle diuresis (lasix 40 mg po daily) - continue PT/OT/ROM exercises as tolerated - continue lovenox for DVT therapy - continue chronic disease med's per attending - 2D ECHO report noted (EF 30-35%; no pulmonary HTN) - heart failure regimen per cardiology (on b-lj and nitrate) - prn bronchodilators with pulmonary hygiene per RT - completed empiric AB's - aspiration precautions - wean supplemental oxygen as needed to keep O2 sat's > 90% - continue accuchecks with glycemic control per SSI for target blood glucose 140 - 180 mg/dL acutely - Agitation management - Prevention of delirium, maintenance of sleep-wake cycle - VTE and Stress ulcer prophylaxis - continue other care per attending / other consultants ... improved Subjective Date of service: 12/14/18 Principal diagnosis: Ac hypoxemic resp failure; ARDS; Septic Shock; DVT; Cardiac arrest Interval history: Patient is seen today for: Acute hypoxemic respiratory failure; ARDS; Severe sepsis with shock; Aspiration pneumonia; Status post cardiac arrest with return of spontaneous circulation; Obesity.; Acute DVT Seen and examined at bedside; 24hour events reviewed; nursing and respiratory care staff consulted; no adverse overnight events reported to me; doing much better; denies acute chest pains or palpitations; No hemoptysis; still with [facility]; s/p Cat today Objective Vital Signs - 12hr 12/14/18 12/14/18 12/14/18 02:42 04:15 08:33 Temperature 98.0 F Pulse Rate 64 Pulse Rate [ 64 Anterior Bilateral Throughout] Pulse Rate [ 76 Bilateral Throughout] Respiratory 18 Rate Respiratory 18 Rate [Anterior Bilateral Throughout] Respiratory 18 Rate [Bilateral Throughout] Blood Pressure 128/50 O2 Sat by Pulse 92 97 Oximetry 12/14/18 09:05 Temperature 98.2 F Pulse Rate 68 Pulse Rate [ Anterior Bilateral Throughout] Pulse Rate [ Bilateral Throughout] Respiratory 18 Rate Respiratory Rate [Anterior Bilateral Throughout] Respiratory Rate [Bilateral Throughout] Blood Pressure 142/65 O2 Sat by Pulse 97 Oximetry Constitutional: no acute distress, alert, other (young obese AAF, normocephalic and atraumatic) Eyes: non-icteric ENT: oropharynx moist Neck: supple, no lymphadenopathy, no JVD, other (large neck circumference) Effort: normal Ascultation: Bilateral: clear, diminished breath sounds Percussion: Bilateral: not dull Cardiovascular: regular rate and rhythm, other (no R/M) Gastrointestinal: normoactive bowel sounds, soft, non-tender, non-distended, other (No HSM) Integumentary: normal Extremities: no cyanosis, pulses normal, no ischemia or petechiae Neurologic: normal mental status, non-focal exam (grossly), pupils equal and round, motor strength normal and Psychiatric: mood appropriate, affect normal CBC and BMP: 12/15/18 05:11 12/15/18 05:11 ABG, PT/INR, D-dimer: ABG POC ABG pH 7.445 (7.35-7.45) 12/10/18 16:54 POC ABG pCO2 42.2 (35-45) 12/10/18 16:54 POC ABG pO2 95 (80-105) 12/10/18 16:54 POC ABG HCO3 29.0 (22-26 mml/L) 12/10/18 16:54 POC ABG Total CO2 30 (23-27mmol/L) 12/10/18 16:54 POC ABG O2 Sat 98 12/10/18 16:54 PT/INR, D-dimer PT 16.3 Sec. (12.2-14.9) H 12/14/18 05:04 INR 1.35 (0.87-1.13) H 12/14/18 05:04 1085.94 ng/mlDDU (0-234) H 12/02/18 00:30 Abnormal lab findings: Abnormal Labs 12/02/18 12/02/18 12/02/18 00:30 00:30 00:30 WBC 11.6 H RBC Hgb Hct MCH RDW 18.1 H Plt Count Seg Neuts % (Manual) 35.0 L Lymphocytes % (Manual) 41.0 H Monocytes % (Manual) 11.0 H Eosinophils % (Manual) 6.0 H Basophils % (Manual) Nucleated RBC % Seg Neutrophils # Seg Neutrophils # Man Lymphocytes # (Manual) Monocytes # (Manual) 1.3 H Eosinophils # (Manual) 0.7 H Basophils # (Manual) PT INR D-Dimer 1085.94 H Heparin Anti-Xa Level POC ABG pH POC ABG pCO2 POC ABG pO2 Sodium Potassium 3.1 L Chloride Carbon Dioxide 21 L BUN 20 H Creatinine Glucose 222 H POC Glucose Lactic Acid Calcium Phosphorus Magnesium AST Total Creatine Kinase CK-MB (CK-2) CK-MB (CK-2) Rel Index Troponin T C-Reactive Protein Albumin Triglycerides LDL Cholesterol Direct HDL Cholesterol Urine WBC (Auto) 12/02/18 12/02/18 12/02/18 01:26 02:58 03:14 WBC RBC Hgb Hct MCH RDW Plt Count Seg Neuts % (Manual) Lymphocytes % (Manual) Monocytes % (Manual) Eosinophils % (Manual) Basophils % (Manual) Nucleated RBC % Seg Neutrophils # Seg Neutrophils # Man Lymphocytes # (Manual) Monocytes # (Manual) Eosinophils # (Manual) Basophils # (Manual) PT INR D-Dimer Heparin Anti-Xa Level POC ABG pH 7.212 L POC ABG pCO2 55.1 H POC ABG pO2 121 H Sodium Potassium Chloride Carbon Dioxide BUN Creatinine Glucose POC Glucose Lactic Acid Calcium Phosphorus Magnesium AST Total Creatine Kinase CK-MB (CK-2) CK-MB (CK-2) Rel Index Troponin T 0.054 H D C-Reactive Protein Albumin Triglycerides 358 H LDL Cholesterol Direct 42 L HDL Cholesterol 29 L Urine WBC (Auto) 12.0 H 12/02/18 12/02/18 12/02/18 04:52 05:26 06:19 WBC RBC Hgb Hct MCH RDW Plt Count Seg Neuts % (Manual) Lymphocytes % (Manual) Monocytes % (Manual) Eosinophils % (Manual) Basophils % (Manual) Nucleated RBC % Seg Neutrophils # Seg Neutrophils # Man Lymphocytes # (Manual) Monocytes # (Manual) Eosinophils # (Manual) Basophils # (Manual) PT INR D-Dimer Heparin Anti-Xa Level POC ABG pH 7.217 L 7.155 L POC ABG pCO2 52.7 H 57.3 H POC ABG pO2 56 L 57 L Sodium Potassium Chloride Carbon Dioxide BUN Creatinine Glucose POC Glucose Lactic Acid Calcium Phosphorus Magnesium AST Total Creatine Kinase 224 H CK-MB (CK-2) 30.7 H CK-MB (CK-2) Rel Index 13.7 H Troponin T 0.227 H* D C-Reactive Protein Albumin Triglycerides LDL Cholesterol Direct HDL Cholesterol Urine WBC (Auto) 12/02/18 12/02/18 12/02/18 07:52 10:50 10:50 WBC RBC Hgb Hct MCH RDW Plt Count Seg Neuts % (Manual) Lymphocytes % (Manual) Monocytes % (Manual) Eosinophils % (Manual) Basophils % (Manual) Nucleated RBC % Seg Neutrophils # Seg Neutrophils # Man Lymphocytes # (Manual) Monocytes # (Manual) Eosinophils # (Manual) Basophils # (Manual) PT INR D-Dimer Heparin Anti-Xa Level POC ABG pH 7.150 L POC ABG pCO2 56.3 H POC ABG pO2 53 L Sodium Potassium Chloride Carbon Dioxide BUN Creatinine Glucose POC Glucose Lactic Acid Calcium Phosphorus Magnesium AST Total Creatine Kinase 1322 H CK-MB (CK-2) 216.7 H CK-MB (CK-2) Rel Index 16.3 H Troponin T 0.871 H* D C-Reactive Protein 4.30 H Albumin Triglycerides LDL Cholesterol Direct HDL Cholesterol Urine WBC (Auto) 12/02/18 12/02/18 12/02/18 10:50 10:50 17:46 WBC RBC Hgb Hct MCH RDW Plt Count Seg Neuts % (Manual) Lymphocytes % (Manual) Monocytes % (Manual) Eosinophils % (Manual) Basophils % (Manual) Nucleated RBC % Seg Neutrophils # Seg Neutrophils # Man Lymphocytes # (Manual) Monocytes # (Manual) Eosinophils # (Manual) Basophils # (Manual) PT INR 1.15 H D-Dimer Heparin Anti-Xa Level POC ABG pH POC ABG pCO2 POC ABG pO2 Sodium Potassium Chloride Carbon Dioxide BUN Creatinine Glucose POC Glucose 135 H Lactic Acid 5.90 H* Calcium Phosphorus Magnesium AST Total Creatine Kinase CK-MB (CK-2) CK-MB (CK-2) Rel Index Troponin T C-Reactive Protein Albumin Triglycerides LDL Cholesterol Direct HDL Cholesterol Urine WBC (Auto) 12/02/18 12/02/18 12/03/18 18:09 20:18 01:47 WBC RBC Hgb Hct MCH RDW Plt Count Seg Neuts % (Manual) Lymphocytes % (Manual) Monocytes % (Manual) Eosinophils % (Manual) Basophils % (Manual) Nucleated RBC % Seg Neutrophils # Seg Neutrophils # Man Lymphocytes # (Manual) Monocytes # (Manual) Eosinophils # (Manual) Basophils # (Manual) PT INR D-Dimer Heparin Anti-Xa Level < 0.10 L POC ABG pH 7.167 L 7.118 L POC ABG pCO2 52.6 H 55.1 H POC ABG pO2 79 L Sodium Potassium Chloride Carbon Dioxide BUN Creatinine Glucose POC Glucose Lactic Acid Calcium Phosphorus Magnesium AST Total Creatine Kinase CK-MB (CK-2) CK-MB (CK-2) Rel Index Troponin T C-Reactive Protein Albumin Triglycerides LDL Cholesterol Direct HDL Cholesterol Urine WBC (Auto) 12/03/18 12/03/18 12/03/18 04:07 04:07 06:30 WBC 26.3 H RBC Hgb Hct MCH RDW 15.9 H Plt Count Seg Neuts % (Manual) 76.0 H Lymphocytes % (Manual) 6.0 L Monocytes % (Manual) Eosinophils % (Manual) Basophils % (Manual) Nucleated RBC % Seg Neutrophils # 24.3 H Seg Neutrophils # Man 20.0 H Lymphocytes # (Manual) Monocytes # (Manual) Eosinophils # (Manual) Basophils # (Manual) PT INR D-Dimer Heparin Anti-Xa Level POC ABG pH 7.326 L POC ABG pCO2 POC ABG pO2 290 H Sodium Potassium 3.5 L Chloride Carbon Dioxide 21 L BUN 19 H Creatinine Glucose 252 H POC Glucose Lactic Acid Calcium 6.7 L D Phosphorus Magnesium AST Total Creatine Kinase CK-MB (CK-2) CK-MB (CK-2) Rel Index Troponin T C-Reactive Protein Albumin Triglycerides LDL Cholesterol Direct HDL Cholesterol Urine WBC (Auto) 12/03/18 12/03/18 12/03/18 09:07 09:07 09:07 WBC RBC Hgb Hct MCH RDW Plt Count Seg Neuts % (Manual) Lymphocytes % (Manual) Monocytes % (Manual) Eosinophils % (Manual) Basophils % (Manual) Nucleated RBC % Seg Neutrophils # Seg Neutrophils # Man Lymphocytes # (Manual) Monocytes # (Manual) Eosinophils # (Manual) Basophils # (Manual) PT INR D-Dimer Heparin Anti-Xa Level < 0.10 L POC ABG pH POC ABG pCO2 POC ABG pO2 Sodium Potassium Chloride Carbon Dioxide BUN Creatinine Glucose POC Glucose Lactic Acid 2.90 H* Calcium Phosphorus Magnesium 1.20 L AST Total Creatine Kinase CK-MB (CK-2) CK-MB (CK-2) Rel Index Troponin T C-Reactive Protein Albumin Triglycerides LDL Cholesterol Direct HDL Cholesterol Urine WBC (Auto) 12/03/18 12/03/18 12/04/18 11:51 18:11 05:16 WBC RBC Hgb Hct MCH RDW Plt Count Seg Neuts % (Manual) Lymphocytes % (Manual) Monocytes % (Manual) Eosinophils % (Manual) Basophils % (Manual) Nucleated RBC % Seg Neutrophils # Seg Neutrophils # Man Lymphocytes # (Manual) Monocytes # (Manual) Eosinophils # (Manual) Basophils # (Manual) PT INR D-Dimer Heparin Anti-Xa Level POC ABG pH 7.464 H POC ABG pCO2 33.7 L POC ABG pO2 Sodium Potassium Chloride Carbon Dioxide BUN Creatinine Glucose POC Glucose 158 H 129 H Lactic Acid Calcium Phosphorus Magnesium AST Total Creatine Kinase CK-MB (CK-2) CK-MB (CK-2) Rel Index Troponin T C-Reactive Protein Albumin Triglycerides LDL Cholesterol Direct HDL Cholesterol Urine WBC (Auto) 12/04/18 12/04/18 12/04/18 05:23 05:23 05:23 WBC 23.7 H RBC 3.04 L Hgb 8.3 L Hct 25.2 L D MCH 27 L RDW 16.0 H Plt Count Seg Neuts % (Manual) 97.0 H Lymphocytes % (Manual) 1.0 L Monocytes % (Manual) Eosinophils % (Manual) Basophils % (Manual) Nucleated RBC % Seg Neutrophils # Seg Neutrophils # Man 23.0 H Lymphocytes # (Manual) 0.2 L Monocytes # (Manual) Eosinophils # (Manual) Basophils # (Manual) PT INR D-Dimer Heparin Anti-Xa Level POC ABG pH POC ABG pCO2 POC ABG pO2 Sodium 136 L Potassium 2.5 L* D Chloride 92.9 L Carbon Dioxide 36 H D BUN Creatinine Glucose 528 H* POC Glucose Lactic Acid 2.20 H* Calcium 6.0 L Phosphorus Magnesium AST Total Creatine Kinase CK-MB (CK-2) CK-MB (CK-2) Rel Index Troponin T C-Reactive Protein Albumin Triglycerides LDL Cholesterol Direct HDL Cholesterol Urine WBC (Auto) 12/04/18 12/04/18 12/04/18 05:23 08:03 08:03 WBC RBC Hgb Hct MCH RDW Plt Count Seg Neuts % (Manual) Lymphocytes % (Manual) Monocytes % (Manual) Eosinophils % (Manual) Basophils % (Manual) Nucleated RBC % Seg Neutrophils # Seg Neutrophils # Man Lymphocytes # (Manual) Monocytes # (Manual) Eosinophils # (Manual) Basophils # (Manual) PT INR D-Dimer Heparin Anti-Xa Level POC ABG pH POC ABG pCO2 POC ABG pO2 Sodium Potassium Chloride Carbon Dioxide BUN Creatinine Glucose POC Glucose Lactic Acid 2.90 H* Calcium Phosphorus Magnesium 1.40 L AST Total Creatine Kinase CK-MB (CK-2) CK-MB (CK-2) Rel Index Troponin T C-Reactive Protein 32.60 H Albumin Triglycerides LDL Cholesterol Direct HDL Cholesterol Urine WBC (Auto) 12/04/18 12/04/18 12/04/18 12:20 12:24 12:53 WBC RBC Hgb Hct MCH RDW Plt Count Seg Neuts % (Manual) Lymphocytes % (Manual) Monocytes % (Manual) Eosinophils % (Manual) Basophils % (Manual) Nucleated RBC % Seg Neutrophils # Seg Neutrophils # Man Lymphocytes # (Manual) Monocytes # (Manual) Eosinophils # (Manual) Basophils # (Manual) PT INR D-Dimer Heparin Anti-Xa Level POC ABG pH POC ABG pCO2 POC ABG pO2 Sodium Potassium 3.2 L D Chloride Carbon Dioxide BUN Creatinine Glucose 170 H POC Glucose 52 L 54 L Lactic Acid Calcium 6.7 L Phosphorus Magnesium AST Total Creatine Kinase CK-MB (CK-2) CK-MB (CK-2) Rel Index Troponin T C-Reactive Protein Albumin Triglycerides LDL Cholesterol Direct HDL Cholesterol Urine WBC (Auto) 12/04/18 12/05/18 12/05/18 13:06 05:22 05:22 WBC 26.1 H RBC 3.61 L Hgb 9.7 L Hct 30.1 L MCH 27 L RDW 16.5 H Plt Count Seg Neuts % (Manual) Lymphocytes % (Manual) Monocytes % (Manual) Eosinophils % (Manual) Basophils % (Manual) Nucleated RBC % Seg Neutrophils # Seg Neutrophils # Man Lymphocytes # (Manual) Monocytes # (Manual) Eosinophils # (Manual) Basophils # (Manual) PT INR D-Dimer Heparin Anti-Xa Level POC ABG pH POC ABG pCO2 POC ABG pO2 Sodium Potassium Chloride 113.9 H Carbon Dioxide BUN Creatinine Glucose POC Glucose 171 H Lactic Acid Calcium 7.8 L D Phosphorus Magnesium 2.50 H AST Total Creatine Kinase CK-MB (CK-2) CK-MB (CK-2) Rel Index Troponin T C-Reactive Protein Albumin Triglycerides LDL Cholesterol Direct HDL Cholesterol Urine WBC (Auto) 12/05/18 12/05/18 12/06/18 05:49 21:04 04:36 WBC 22.6 H RBC 3.62 L Hgb 9.9 L Hct 30.0 L MCH 27 L RDW 16.4 H Plt Count Seg Neuts % (Manual) 90.0 H Lymphocytes % (Manual) 6.0 L Monocytes % (Manual) Eosinophils % (Manual) Basophils % (Manual) Nucleated RBC % Seg Neutrophils # Seg Neutrophils # Man 20.3 H Lymphocytes # (Manual) Monocytes # (Manual) Eosinophils # (Manual) Basophils # (Manual) PT INR D-Dimer Heparin Anti-Xa Level 0.14 L POC ABG pH 7.315 L POC ABG pCO2 POC ABG pO2 Sodium Potassium Chloride Carbon Dioxide BUN Creatinine Glucose POC Glucose Lactic Acid Calcium Phosphorus Magnesium AST Total Creatine Kinase CK-MB (CK-2) CK-MB (CK-2) Rel Index Troponin T C-Reactive Protein Albumin Triglycerides LDL Cholesterol Direct HDL Cholesterol Urine WBC (Auto) 12/06/18 12/06/18 12/06/18 04:36 04:36 05:37 WBC RBC Hgb Hct MCH RDW Plt Count Seg Neuts % (Manual) Lymphocytes % (Manual) Monocytes % (Manual) Eosinophils % (Manual) Basophils % (Manual) Nucleated RBC % Seg Neutrophils # Seg Neutrophils # Man Lymphocytes # (Manual) Monocytes # (Manual) Eosinophils # (Manual) Basophils # (Manual) PT INR D-Dimer Heparin Anti-Xa Level < 0.10 L POC ABG pH POC ABG pCO2 POC ABG pO2 Sodium Potassium Chloride 111.6 H Carbon Dioxide BUN Creatinine Glucose 114 H POC Glucose 121 H Lactic Acid Calcium 8.0 L Phosphorus Magnesium AST 41 H Total Creatine Kinase CK-MB (CK-2) CK-MB (CK-2) Rel Index Troponin T C-Reactive Protein Albumin 2.3 L Triglycerides LDL Cholesterol Direct HDL Cholesterol Urine WBC (Auto) 12/06/18 12/06/18 12/06/18 11:46 14:15 18:34 WBC RBC Hgb Hct MCH RDW Plt Count Seg Neuts % (Manual) Lymphocytes % (Manual) Monocytes % (Manual) Eosinophils % (Manual) Basophils % (Manual) Nucleated RBC % Seg Neutrophils # Seg Neutrophils # Man Lymphocytes # (Manual) Monocytes # (Manual) Eosinophils # (Manual) Basophils # (Manual) PT INR D-Dimer Heparin Anti-Xa Level 1.22 H POC ABG pH POC ABG pCO2 POC ABG pO2 Sodium Potassium Chloride Carbon Dioxide BUN Creatinine Glucose POC Glucose 122 H 110 H Lactic Acid Calcium Phosphorus Magnesium AST Total Creatine Kinase CK-MB (CK-2) CK-MB (CK-2) Rel Index Troponin T C-Reactive Protein Albumin Triglycerides LDL Cholesterol Direct HDL Cholesterol Urine WBC (Auto) 12/06/18 12/06/18 12/07/18 23:00 23:11 03:23 WBC RBC Hgb Hct MCH RDW Plt Count Seg Neuts % (Manual) Lymphocytes % (Manual) Monocytes % (Manual) Eosinophils % (Manual) Basophils % (Manual) Nucleated RBC % Seg Neutrophils # Seg Neutrophils # Man Lymphocytes # (Manual) Monocytes # (Manual) Eosinophils # (Manual) Basophils # (Manual) PT INR D-Dimer Heparin Anti-Xa Level 0.15 L POC ABG pH POC ABG pCO2 POC ABG pO2 60 L Sodium Potassium Chloride Carbon Dioxide BUN Creatinine Glucose POC Glucose 138 H Lactic Acid Calcium Phosphorus Magnesium AST Total Creatine Kinase CK-MB (CK-2) CK-MB (CK-2) Rel Index Troponin T C-Reactive Protein Albumin Triglycerides LDL Cholesterol Direct HDL Cholesterol Urine WBC (Auto) 12/07/18 12/07/18 12/07/18 04:45 04:45 05:47 WBC 16.6 H RBC 3.56 L Hgb 9.7 L Hct 29.4 L MCH 27 L RDW 15.9 H Plt Count Seg Neuts % (Manual) 86.0 H Lymphocytes % (Manual) 12.0 L Monocytes % (Manual) Eosinophils % (Manual) Basophils % (Manual) Nucleated RBC % Seg Neutrophils # Seg Neutrophils # Man 14.3 H Lymphocytes # (Manual) Monocytes # (Manual) Eosinophils # (Manual) Basophils # (Manual) PT INR D-Dimer Heparin Anti-Xa Level POC ABG pH POC ABG pCO2 POC ABG pO2 Sodium Potassium 3.2 L Chloride 107.6 H Carbon Dioxide BUN 20 H Creatinine Glucose 138 H POC Glucose 160 H Lactic Acid Calcium 8.0 L Phosphorus Magnesium AST Total Creatine Kinase CK-MB (CK-2) CK-MB (CK-2) Rel Index Troponin T C-Reactive Protein Albumin Triglycerides LDL Cholesterol Direct HDL Cholesterol Urine WBC (Auto) 12/07/18 12/07/18 12/07/18 06:45 09:14 12:46 WBC RBC Hgb Hct MCH RDW Plt Count Seg Neuts % (Manual) Lymphocytes % (Manual) Monocytes % (Manual) Eosinophils % (Manual) Basophils % (Manual) Nucleated RBC % Seg Neutrophils # Seg Neutrophils # Man Lymphocytes # (Manual) Monocytes # (Manual) Eosinophils # (Manual) Basophils # (Manual) PT INR D-Dimer Heparin Anti-Xa Level < 0.10 L POC ABG pH POC ABG pCO2 POC ABG pO2 Sodium Potassium Chloride Carbon Dioxide BUN Creatinine Glucose POC Glucose 129 H Lactic Acid Calcium Phosphorus 1.80 L Magnesium AST Total Creatine Kinase CK-MB (CK-2) CK-MB (CK-2) Rel Index Troponin T C-Reactive Protein Albumin Triglycerides LDL Cholesterol Direct HDL Cholesterol Urine WBC (Auto) 12/07/18 12/07/18 12/08/18 17:33 23:42 05:09 WBC RBC Hgb Hct MCH RDW Plt Count Seg Neuts % (Manual) Lymphocytes % (Manual) Monocytes % (Manual) Eosinophils % (Manual) Basophils % (Manual) Nucleated RBC % Seg Neutrophils # Seg Neutrophils # Man Lymphocytes # (Manual) Monocytes # (Manual) Eosinophils # (Manual) Basophils # (Manual) PT INR D-Dimer Heparin Anti-Xa Level POC ABG pH POC ABG pCO2 POC ABG pO2 Sodium Potassium Chloride Carbon Dioxide BUN Creatinine Glucose POC Glucose 131 H 141 H 151 H Lactic Acid Calcium Phosphorus Magnesium AST Total Creatine Kinase CK-MB (CK-2) CK-MB (CK-2) Rel Index Troponin T C-Reactive Protein Albumin Triglycerides LDL Cholesterol Direct HDL Cholesterol Urine WBC (Auto) 12/08/18 12/08/18 12/08/18 06:10 06:10 12:03 WBC 22.7 H RBC 3.50 L Hgb 9.4 L Hct 28.8 L MCH 27 L RDW 16.3 H Plt Count Seg Neuts % (Manual) Lymphocytes % (Manual) Monocytes % (Manual) Eosinophils % (Manual) 10.0 H Basophils % (Manual) Nucleated RBC % Seg Neutrophils # Seg Neutrophils # Man 14.1 H Lymphocytes # (Manual) 6.1 H Monocytes # (Manual) Eosinophils # (Manual) 2.3 H Basophils # (Manual) PT INR D-Dimer Heparin Anti-Xa Level POC ABG pH POC ABG pCO2 POC ABG pO2 Sodium Potassium 3.5 L Chloride 108.8 H Carbon Dioxide BUN 23 H Creatinine 0.6 L Glucose 140 H POC Glucose 119 H Lactic Acid Calcium 8.1 L Phosphorus Magnesium AST Total Creatine Kinase CK-MB (CK-2) CK-MB (CK-2) Rel Index Troponin T C-Reactive Protein Albumin Triglycerides LDL Cholesterol Direct HDL Cholesterol Urine WBC (Auto) 12/08/18 12/08/18 12/08/18 13:19 18:03 18:26 WBC RBC Hgb Hct MCH RDW Plt Count Seg Neuts % (Manual) Lymphocytes % (Manual) Monocytes % (Manual) Eosinophils % (Manual) Basophils % (Manual) Nucleated RBC % Seg Neutrophils # Seg Neutrophils # Man Lymphocytes # (Manual) Monocytes # (Manual) Eosinophils # (Manual) Basophils # (Manual) PT INR D-Dimer Heparin Anti-Xa Level POC ABG pH 7.466 H 7.467 H POC ABG pCO2 POC ABG pO2 71 L Sodium Potassium Chloride Carbon Dioxide BUN Creatinine Glucose POC Glucose 152 H Lactic Acid Calcium Phosphorus Magnesium AST Total Creatine Kinase CK-MB (CK-2) CK-MB (CK-2) Rel Index Troponin T C-Reactive Protein Albumin Triglycerides LDL Cholesterol Direct HDL Cholesterol Urine WBC (Auto) 12/08/18 12/09/18 12/09/18 23:21 04:45 04:45 WBC 27.6 H RBC 3.33 L Hgb 8.8 L Hct 27.4 L MCH 26 L RDW 15.9 H Plt Count Seg Neuts % (Manual) 74.0 H Lymphocytes % (Manual) Monocytes % (Manual) Eosinophils % (Manual) Basophils % (Manual) Nucleated RBC % 2.0 H Seg Neutrophils # Seg Neutrophils # Man 20.4 H Lymphocytes # (Manual) Monocytes # (Manual) Eosinophils # (Manual) 0.6 H Basophils # (Manual) PT INR D-Dimer Heparin Anti-Xa Level POC ABG pH POC ABG pCO2 POC ABG pO2 Sodium 148 H Potassium Chloride 108.7 H Carbon Dioxide BUN 24 H Creatinine Glucose 141 H POC Glucose 130 H Lactic Acid Calcium Phosphorus Magnesium AST Total Creatine Kinase CK-MB (CK-2) CK-MB (CK-2) Rel Index Troponin T C-Reactive Protein Albumin Triglycerides LDL Cholesterol Direct HDL Cholesterol Urine WBC (Auto) 12/09/18 12/09/18 12/09/18 05:18 06:27 12:52 WBC RBC Hgb Hct MCH RDW Plt Count Seg Neuts % (Manual) Lymphocytes % (Manual) Monocytes % (Manual) Eosinophils % (Manual) Basophils % (Manual) Nucleated RBC % Seg Neutrophils # Seg Neutrophils # Man Lymphocytes # (Manual) Monocytes # (Manual) Eosinophils # (Manual) Basophils # (Manual) PT INR D-Dimer Heparin Anti-Xa Level POC ABG pH 7.454 H POC ABG pCO2 POC ABG pO2 Sodium Potassium Chloride Carbon Dioxide BUN Creatinine Glucose POC Glucose 162 H 142 H Lactic Acid Calcium Phosphorus Magnesium AST Total Creatine Kinase CK-MB (CK-2) CK-MB (CK-2) Rel Index Troponin T C-Reactive Protein Albumin Triglycerides LDL Cholesterol Direct HDL Cholesterol Urine WBC (Auto) 12/09/18 12/09/18 12/10/18 18:27 23:54 04:09 WBC 33.7 H RBC 3.56 L Hgb 9.4 L Hct 29.1 L MCH 26 L RDW 15.8 H Plt Count Seg Neuts % (Manual) 78.0 H Lymphocytes % (Manual) Monocytes % (Manual) Eosinophils % (Manual) Basophils % (Manual) Nucleated RBC % Seg Neutrophils # Seg Neutrophils # Man 26.3 H Lymphocytes # (Manual) 6.1 H Monocytes # (Manual) Eosinophils # (Manual) Basophils # (Manual) PT INR D-Dimer Heparin Anti-Xa Level POC ABG pH POC ABG pCO2 POC ABG pO2 Sodium Potassium Chloride Carbon Dioxide BUN Creatinine Glucose POC Glucose 117 H 108 H Lactic Acid Calcium Phosphorus Magnesium AST Total Creatine Kinase CK-MB (CK-2) CK-MB (CK-2) Rel Index Troponin T C-Reactive Protein Albumin Triglycerides LDL Cholesterol Direct HDL Cholesterol Urine WBC (Auto) 12/10/18 12/10/18 12/10/18 04:09 04:57 12:15 WBC RBC Hgb Hct MCH RDW Plt Count Seg Neuts % (Manual) Lymphocytes % (Manual) Monocytes % (Manual) Eosinophils % (Manual) Basophils % (Manual) Nucleated RBC % Seg Neutrophils # Seg Neutrophils # Man Lymphocytes # (Manual) Monocytes # (Manual) Eosinophils # (Manual) Basophils # (Manual) PT INR D-Dimer Heparin Anti-Xa Level POC ABG pH POC ABG pCO2 POC ABG pO2 Sodium 149 H Potassium Chloride 110.5 H Carbon Dioxide 31 H BUN 28 H Creatinine Glucose 129 H POC Glucose 120 H 118 H Lactic Acid Calcium Phosphorus Magnesium AST Total Creatine Kinase CK-MB (CK-2) CK-MB (CK-2) Rel Index Troponin T C-Reactive Protein Albumin Triglycerides LDL Cholesterol Direct HDL Cholesterol Urine WBC (Auto) 12/11/18 12/11/1819 00:03 04:45 04:45 WBC 30.8 H RBC 3.38 L Hgb 8.9 L Hct 27.9 L MCH 26 L RDW 15.9 H Plt Count 465 H Seg Neuts % (Manual) 86.0 H Lymphocytes % (Manual) 8.0 L Monocytes % (Manual) Eosinophils % (Manual) Basophils % (Manual) 2.0 H Nucleated RBC % Seg Neutrophils # Seg Neutrophils # Man 26.5 H Lymphocytes # (Manual) Monocytes # (Manual) Eosinophils # (Manual) 0.6 H Basophils # (Manual) 0.6 H PT INR D-Dimer Heparin Anti-Xa Level POC ABG pH POC ABG pCO2 POC ABG pO2 Sodium 146 H Potassium Chloride 107.6 H Carbon Dioxide BUN 25 H Creatinine 0.6 L Glucose 116 H POC Glucose 111 H Lactic Acid Calcium Phosphorus Magnesium AST Total Creatine Kinase CK-MB (CK-2) CK-MB (CK-2) Rel Index Troponin T C-Reactive Protein Albumin Triglycerides LDL Cholesterol Direct HDL Cholesterol Urine WBC (Auto) 12/11/18 12/11/18 12/11/18 05:07 12:18 18:42 WBC RBC Hgb Hct MCH RDW Plt Count Seg Neuts % (Manual) Lymphocytes % (Manual) Monocytes % (Manual) Eosinophils % (Manual) Basophils % (Manual) Nucleated RBC % Seg Neutrophils # Seg Neutrophils # Man Lymphocytes # (Manual) Monocytes # (Manual) Eosinophils # (Manual) Basophils # (Manual) PT INR D-Dimer Heparin Anti-Xa Level POC ABG pH POC ABG pCO2 POC ABG pO2 Sodium Potassium Chloride Carbon Dioxide BUN Creatinine Glucose POC Glucose 106 H 131 H 133 H Lactic Acid Calcium Phosphorus Magnesium AST Total Creatine Kinase CK-MB (CK-2) CK-MB (CK-2) Rel Index Troponin T C-Reactive Protein Albumin Triglycerides LDL Cholesterol Direct HDL Cholesterol Urine WBC (Auto) 12/12/18 12/12/18 12/12/18 12:52 12:52 12:52 WBC 30.2 H RBC Hgb 9.7 L Hct MCH 26 L RDW 16.2 H Plt Count 624 H Seg Neuts % (Manual) 82.0 H Lymphocytes % (Manual) 10.0 L Monocytes % (Manual) Eosinophils % (Manual) Basophils % (Manual) Nucleated RBC % Seg Neutrophils # Seg Neutrophils # Man 24.8 H Lymphocytes # (Manual) Monocytes # (Manual) 1.7 H Eosinophils # (Manual) 0.5 H Basophils # (Manual) PT 17.8 H INR 1.51 H D-Dimer Heparin Anti-Xa Level POC ABG pH POC ABG pCO2 POC ABG pO2 Sodium Potassium Chloride Carbon Dioxide BUN 18 H Creatinine Glucose POC Glucose Lactic Acid Calcium Phosphorus Magnesium AST Total Creatine Kinase CK-MB (CK-2) CK-MB (CK-2) Rel Index Troponin T C-Reactive Protein Albumin Triglycerides LDL Cholesterol Direct HDL Cholesterol Urine WBC (Auto) 12/12/18 12/12/18 12/13/18 17:34 23:35 05:09 WBC 27.7 H RBC 3.34 L Hgb 8.9 L Hct 27.5 L MCH 27 L RDW 15.7 H Plt Count 602 H Seg Neuts % (Manual) 91.0 H Lymphocytes % (Manual) 6.0 L Monocytes % (Manual) Eosinophils % (Manual) Basophils % (Manual) Nucleated RBC % Seg Neutrophils # Seg Neutrophils # Man 25.2 H Lymphocytes # (Manual) Monocytes # (Manual) Eosinophils # (Manual) Basophils # (Manual) PT INR D-Dimer Heparin Anti-Xa Level POC ABG pH POC ABG pCO2 POC ABG pO2 Sodium Potassium Chloride Carbon Dioxide BUN Creatinine Glucose POC Glucose 107 H 120 H Lactic Acid Calcium Phosphorus Magnesium AST Total Creatine Kinase CK-MB (CK-2) CK-MB (CK-2) Rel Index Troponin T C-Reactive Protein Albumin Triglycerides LDL Cholesterol Direct HDL Cholesterol Urine WBC (Auto) 12/13/18 12/13/18 12/13/18 05:09 08:00 11:59 WBC RBC Hgb Hct MCH RDW Plt Count Seg Neuts % (Manual) Lymphocytes % (Manual) Monocytes % (Manual) Eosinophils % (Manual) Basophils % (Manual) Nucleated RBC % Seg Neutrophils # Seg Neutrophils # Man Lymphocytes # (Manual) Monocytes # (Manual) Eosinophils # (Manual) Basophils # (Manual) PT INR D-Dimer Heparin Anti-Xa Level POC ABG pH POC ABG pCO2 POC ABG pO2 Sodium Potassium Chloride 107.2 H Carbon Dioxide BUN Creatinine Glucose 115 H POC Glucose 114 H 108 H Lactic Acid Calcium 8.1 L Phosphorus Magnesium AST Total Creatine Kinase 148 H CK-MB (CK-2) 7.2 H CK-MB (CK-2) Rel Index 4.8 H Troponin T 1.250 H* C-Reactive Protein Albumin Triglycerides LDL Cholesterol Direct HDL Cholesterol Urine WBC (Auto) 12/13/18 12/14/18 12/14/18 22:07 05:04 05:04 WBC RBC Hgb 8.9 L Hct 27.4 L MCH RDW Plt Count 647 H Seg Neuts % (Manual) Lymphocytes % (Manual) Monocytes % (Manual) Eosinophils % (Manual) Basophils % (Manual) Nucleated RBC % Seg Neutrophils # Seg Neutrophils # Man Lymphocytes # (Manual) Monocytes # (Manual) Eosinophils # (Manual) Basophils # (Manual) PT 16.3 H INR 1.35 H D-Dimer Heparin Anti-Xa Level POC ABG pH POC ABG pCO2 POC ABG pO2 Sodium Potassium Chloride Carbon Dioxide BUN Creatinine Glucose POC Glucose 118 H Lactic Acid Calcium Phosphorus Magnesium AST Total Creatine Kinase CK-MB (CK-2) CK-MB (CK-2) Rel Index Troponin T C-Reactive Protein Albumin Triglycerides LDL Cholesterol Direct HDL Cholesterol Urine WBC (Auto) 12/14/18 05:04 WBC RBC Hgb Hct MCH RDW Plt Count Seg Neuts % (Manual) Lymphocytes % (Manual) Monocytes % (Manual) Eosinophils % (Manual) Basophils % (Manual) Nucleated RBC % Seg Neutrophils # Seg Neutrophils # Man Lymphocytes # (Manual) Monocytes # (Manual) Eosinophils # (Manual) Basophils # (Manual) PT INR D-Dimer Heparin Anti-Xa Level POC ABG pH POC ABG pCO2 POC ABG pO2 Sodium Potassium Chloride Carbon Dioxide BUN Creatinine Glucose 111 H POC Glucose Lactic Acid Calcium Phosphorus Magnesium AST Total Creatine Kinase CK-MB (CK-2) CK-MB (CK-2) Rel Index Troponin T C-Reactive Protein Albumin Triglycerides LDL Cholesterol Direct HDL Cholesterol Urine WBC (Auto) Allied health notes reviewed: nursing
[2018-12-14 13:59] LABS: Hematocrit 28.5 % (30.3-42.9); Hemoglobin 9.2 gm/dl (10.1-14.3); Mean Corpuscular HGB Conc 32 % (30-34); Mean Corpuscular Volume 83 fl (79-97); Platelet Count 730 K/mm3 (140-440); Red Blood Count 3.42 M/mm3 (3.65-5.03); Red Cell Distribution Width 16.3 % (13.2-15.2)
[2018-12-14] MEDS: LASIX PO SCH (14:00)
[2018-12-14] MEDS: IMDUR PO SCH (14:00)
[2018-12-14] MEDS: CORDARONE PO SCH (14:00)
[2018-12-14] MEDS: PEPCID PO SCH ×2 (14:00→21:52)
[2018-12-14] MEDS: SODIUM CHLORIDE FLUSH SYRINGE 10 ML IV SCH ×2 (14:00→21:56)
[2018-12-14] MEDS: LOPRESSOR PO SCH ×2 (14:00→21:58)
--- NOTE | 2018-12-14 14:16 | Cardiac Catherization Report ---
CORONARY ANGIOPLASTY REPORT REASON FOR PROCEDURE: The patient is a 53-year-old woman who presented to the hospital with a ventricular fibrillation arrest, found to have an ischemic cardiomyopathy and severe 3-vessel disease. Two days ago, she underwent a 2-vessel coronary intervention to an infarct circumflex subtotal stenosis, as well as a secondary mid LAD stenosis. She returns to the manufacturing lab technician today, for staged third vessel intervention to the mid right coronary artery. PROCEDURES: 1. Coronary angioplasty and stenting of the mid right coronary artery. 2. Sedation time, start 12:20, end 12:40. The patient was prepped and draped in a sterile fashion after informed consent. The right radial cath site was prepped and draped after a negative Radu's test. The right radial artery was entered using Seldinger technique, followed by placement of a 6-Maori hydrophilic sheath. Routine radial cocktail was administered via the sheath. We selected a #4 right Bradley guiding catheter to the right coronary ostium. Preintervention angiograms were done. Angiograms showed a focal, 95% stenosis of the mid right coronary artery. A 0.014 inch Steaming Cabinet Tender 50 guidewire was then introduced, and maneuvered across the lesional segment. Following wire placement, we placed a 3.5 x 8 mm Xience drug-eluting stent, in the primary stenting maneuver. The stent was deployed to optimal pressures. Following stenting, there was an excellent angiographic result, 0 residual stenosis and ELLA 3 flow was maintained down the vessel. The catheters and the wires were removed, sheath removed, and hemostasis achieved using manual compression. The patient was returned to the postprocedure unit in stable condition. CONCLUSION: Successful staged, third vessel coronary angioplasty and stenting of the mid right coronary artery, excellent angiographic result following deployment of a 3.5 mm drug-eluting stent. JOB# [id number] CA/NTS
[2018-12-14 15:11] LABS: Anisocytosis Few; Macrocytosis Few; Myelocytes # (Manual) 0.2 K/mm3; Platelet Estimate Consistent w Auto; Total Cells Counted 100
[2018-12-14] MEDS: ZESTRIL PO SCH (16:19)
--- NOTE | 2018-12-14 22:42 | Progress Note ---
Assessment and Plan Assessment and plan: 53 -year-old woman with a history of hypertension, hyperlidemia, PVD comes to the emergency room with complaints of chest pain. While she was getting an EKG, she went into cardiac arrest, shocked once for vfib, started on amiodarone drip and intubated. She aspirated copious amount of gastric content. Cousin at bedside, R PAST MEDICAL HISTORY:hypertension, hyperlipidemia, PVD S/p V. fib arrest, requiring cardioversion in the emergency room. MPI 09/16/2018 - normal Echo 09/16/2018 - normal LVEF cardiogenic shock; improved -for cath and need lifevest prior to dc Septic shock/severe sepsis -Probably secondary to bilateral pneumonia, likely due to aspiration has completed course of abx since 12/11 Acute hypoxemic respiratory failure on MV > 96 hours extubated on 12/10, mgt per pulmonology New onset systolic heart failure with EF of 30-35% -No acute exacerbation -On BB and oral Lasix. Not on ACEI due to labile BP New onset atrial fibrillation. on rate control meds and therapeutic Lovenox per cardiology, planned for lifevest prior to dc Acute right common femoral vein DVT -On therapeutic Lovenox Hypokalemia/Hypomagnesemia -Improving on repletion, will monitor level H/o hypertension. -Blood pressure labile -home antihypertensives on hold Hyperglycemia -was likely due to acute stress/acute illness, no hx of dm and a1c is 5.6 Hyperlipidemia. -Continue statin. Peripheral vascular disease -Cont cilostazol Normocytic anemia, likely chronic -H&H stable, will monitor Marijuana use -Cessation recommended Medication non-compliance -Patient counseled Obesity with BMI of 33.4 -Lifestyle modification recommended History Interval history: sob is improved, no cp/wheezing or vomiting no fever, no vomiting or seizures Hospitalist Physical - Physical exam Narrative exam: General appearance: no acute distress, on NC - EENT Eyes: Present: PERRL ENT: hearing intact - Neck Neck: Present: supple - Respiratory Respiratory effort: normal Respiratory: bilateral: diminished - Cardiovascular Heart Sounds: Present: S1 & S2 - Extremities Extremities: no ischemia - Abdominal General gastrointestinal: soft, non-tender - Psychiatric Psychiatric: appropriate mood/affect, intact judgment & insight - Neurologic Neurologic: CNII-XII intact, moves all extremities - Constitutional Vitals: Temp Pulse Resp BP Pulse Ox 98.6 F 76 18 119/60 95 12/14/18 20:24 12/14/18 20:24 12/14/18 20:24 12/14/18 20:24 12/14/18 20:24 General appearance: Present: no acute distress, other (intubated but awake) Results - Labs CBC & Chem 7: 12/14/18 13:40 12/14/18 05:04 Labs: Laboratory Last Values WBC 24.2 K/mm3 (4.5-11.0) H 12/14/18 13:40 RBC 3.42 M/mm3 (3.65-5.03) L 12/14/18 13:40 Hgb 9.2 gm/dl (10.1-14.3) L 12/14/18 13:40 Hct 28.5 % (30.3-42.9) L 12/14/18 13:40 MCV 83 fl (79-97) 12/14/18 13:40 MCH 27 pg (28-32) L 12/14/18 13:40 MCHC 32 % (30-34) 12/14/18 13:40 RDW 16.3 % (13.2-15.2) H 12/14/18 13:40 Plt Count 730 K/mm3 (140-440) H 12/14/18 13:40 Lymph % (Auto) Filter Tank Tender 12/02/18 00:30 Cassia % (Auto) 1.3 % (0.0-7.3) 12/03/18 04:07 Eos % (Auto) 0.0 % (0.0-4.3) 12/03/18 04:07 Baso % (Auto) Filter Tank Tender 12/02/18 00:30 Lymph # Filter Tank Tender 12/10/18 04:09 Cassia # 0.3 K/mm3 (0.0-0.8) 12/03/18 04:07 Eos # 0.0 K/mm3 (0.0-0.4) 12/03/18 04:07 Baso # 0.0 K/mm3 (0.0-0.1) 12/03/18 04:07 Add Manual Diff Complete 12/14/18 13:40 Total Counted 100 12/14/18 13:40 Seg Neutrophils % Filter Tank Tender 12/02/18 00:30 Seg Neuts % (Manual) 75.0 % (40.0-70.0) H 12/14/18 13:40 0 % 12/14/18 13:40 16.0 % (13.4-35.0) 12/14/18 13:40 Reactive Lymphs % (Man) 0 % 12/14/18 13:40 4.0 % (0.0-7.3) 12/14/18 13:40 3.0 % (0.0-4.3) 12/14/18 13:40 1.0 % (0.0-1.8) 12/14/18 13:40 0 % 12/14/18 13:40 1.0 % 12/14/18 13:40 0 % 12/14/18 13:40 0 % 12/14/18 13:40 Nucleated RBC % 2.0 % (0.0-0.9) H 12/14/18 13:40 Seg Neutrophils # 24.3 K/mm3 (1.8-7.7) H 12/03/18 04:07 Seg Neutrophils # Man 18.2 K/mm3 (1.8-7.7) H 12/14/18 13:40 Band Neutrophils # 0.0 K/mm3 12/14/18 13:40 3.9 K/mm3 (1.2-5.4) 12/14/18 13:40 Abs React Lymphs (Man) 0.0 K/mm3 12/14/18 13:40 1.0 K/mm3 (0.0-0.8) H 12/14/18 13:40 0.7 K/mm3 (0.0-0.4) H 12/14/18 13:40 0.2 K/mm3 (0.0-0.1) H 12/14/18 13:40 0.0 K/mm3 12/14/18 13:40 0.2 K/mm3 12/14/18 13:40 0.0 K/mm3 12/14/18 13:40 Blast Cells # 0.0 K/mm3 12/14/18 13:40 WBC Morphology Not Reportable 12/14/18 13:40 Hypersegmented Neuts Not Reportable 12/14/18 13:40 Hyposegmented Neuts Not Reportable 12/14/18 13:40 Hypogranular Neuts Not Reportable 12/14/18 13:40 Not Reportable 12/14/18 13:40 Not Reportable 12/14/18 13:40 Not Reportable 12/14/18 13:40 Not Reportable 12/14/18 13:40 Not Reportable 12/14/18 13:40 Not Reportable 12/14/18 13:40 Consistent w auto 12/14/18 13:40 Not Reportable 12/14/18 13:40 Plt Clumps, EDTA Not Reportable 12/14/18 13:40 Not Reportable 12/14/18 13:40 Not Reportable 12/14/18 13:40 Not Reportable 12/14/18 13:40 Plt Morphology Comment Not Reportable 12/14/18 13:40 RBC Morphology Not Reportable 12/14/18 13:40 Dimorphic RBCs Not Reportable 12/14/18 13:40 Not Reportable 12/14/18 13:40 Not Reportable 12/14/18 13:40 Not Reportable 12/14/18 13:40 Few 12/14/18 13:40 Not Reportable 12/14/18 13:40 Few 12/14/18 13:40 Not Reportable 12/14/18 13:40 Not Reportable 12/14/18 13:40 Not Reportable 12/14/18 13:40 Not Reportable 12/14/18 13:40 Not Reportable 12/14/18 13:40 Not Reportable 12/14/18 13:40 Not Reportable 12/14/18 13:40 Not Reportable 12/14/18 13:40 Not Reportable 12/14/18 13:40 Not Reportable 12/14/18 13:40 Not Reportable 12/14/18 13:40 Not Reportable 12/14/18 13:40 Not Reportable 12/14/18 13:40 Acanthocytes (Spur) Not Reportable 12/14/18 13:40 Rouleaux Not Reportable 12/14/18 13:40 Not Reportable 12/14/18 13:40 Not Reportable 12/14/18 13:40 Not Reportable 12/14/18 13:40 Not Reportable 12/14/18 13:40 Hem Pathologist Commnt No 12/14/18 13:40 PT 16.3 Sec. (12.2-14.9) H 12/14/18 05:04 INR 1.35 (0.87-1.13) H 12/14/18 05:04 APTT 26.5 Sec. (24.2-36.6) 12/02/18 10:50 1085.94 ng/mlDDU (0-234) H 12/02/18 00:30 Heparin Anti-Xa Level < 0.10 U.I./ml (0.3-0.7) L 12/07/18 06:45 POC ABG pH 7.445 (7.35-7.45) 12/10/18 16:54 POC ABG pCO2 42.2 (35-45) 12/10/18 16:54 POC ABG pO2 95 (80-105) 12/10/18 16:54 POC ABG HCO3 29.0 (22-26 mml/L) 12/10/18 16:54 POC ABG Total CO2 30 (23-27mmol/L) 12/10/18 16:54 POC ABG O2 Sat 98 12/10/18 16:54 POC ABG Base Excess 5 ((-2) - (+3)mmol/L) 12/10/18 16:54 40 % 12/10/18 16:54 Sodium 137 mmol/L (137-145) 12/14/18 05:04 Potassium 3.9 mmol/L (3.6-5.0) 12/14/18 05:04 Chloride 106.1 mmol/L (98-107) 12/14/18 05:04 Carbon Dioxide 22 mmol/L (22-30) 12/14/18 05:04 13 mmol/L 12/14/18 05:04 BUN 8 mg/dL (7-17) 12/14/18 05:04 0.8 mg/dL (0.7-1.2) 12/14/18 05:04 Estimated GFR > 60 ml/min 12/14/18 05:04 10 % 12/14/18 05:04 Glucose 111 mg/dL (65-100) H 12/14/18 05:04 POC Glucose 107 (70-105) H 12/14/18 16:52 5.6 % (4-6) 12/04/18 08:03 Lactic Acid 1.60 mmol/L (0.7-2.0) 12/05/18 05:22 Calcium 8.4 mg/dL (8.4-10.2) 12/14/18 05:04 Phosphorus 1.80 mg/dL (2.5-4.5) L 12/07/18 09:14 Magnesium 2.00 mg/dL (1.7-2.3) 12/08/18 06:10 0.30 mg/dL (0.1-1.2) 12/06/18 04:36 AST 41 units/L (5-40) H 12/06/18 04:36 ALT 54 units/L (7-56) 12/06/18 04:36 128 units/L (35-129) 12/06/18 04:36 148 units/L (30-135) H 12/13/18 05:09 CK-MB (CK-2) 7.2 ng/mL (0.0-4.0) H 12/13/18 05:09 CK-MB (CK-2) Rel Index 4.8 (0-4) H 12/13/18 05:09 1.250 ng/mL (0.00-0.029) H* 12/13/18 05:09 32.60 mg/dL (0.00-1.30) H 12/04/18 05:23 6.3 g/dL (6.3-8.2) 12/06/18 04:36 2.3 g/dL (3.9-5) L 12/06/18 04:36 0.6 % 12/06/18 04:36 Triglycerides 358 mg/dL (2-149) H 12/02/18 03:14 Cholesterol 111 mg/dL (50-199) 12/02/18 03:14 42 mg/dL (50-130) L 12/02/18 03:14 29 mg/dL (40-59) L 12/02/18 03:14 3.82 % 12/02/18 03:14 TSH 1.820 mlU/mL (0.270-4.200) 12/07/18 11:24 Free T4 0.96 ng/dL (0.76-1.46) 12/07/18 11:24 Colorless (Yellow) 12/02/18 02:58 Clear (Clear) 12/02/18 02:58 7.0 (5.0-7.0) 12/02/18 02:58 Ur Specific [place] 1.008 (1.003-1.030) 12/02/18 02:58 100 mg/dl mg/dL (Negative) 12/02/18 02:58 >=500 mg/dL (Negative) 12/02/18 02:58 Neg mg/dL (Negative) 12/02/18 02:58 Sm (Negative) 12/02/18 02:58 Neg (Negative) 12/02/18 02:58 Neg (Negative) 12/02/18 02:58 < 2.0 mg/dL (<2.0) 12/02/18 02:58 Ur Leukocyte Esterase Neg (Negative) 12/02/18 02:58 12.0 /HPF (0.0-6.0) H 12/02/18 02:58 7.0 /HPF (0.0-6.0) 12/02/18 02:58 U Epithel Cells (Auto) < 1.0 /HPF (0-13.0) 12/02/18 02:58 Few /HPF 12/02/18 02:58 Presumptive negative 12/02/18 02:58 Presumptive negative 12/02/18 02:58 Ur Barbiturates Screen Presumptive negative 12/02/18 02:58 Ur Phencyclidine Scrn Presumptive negative 12/02/18 02:58 Ur Amphetamines Screen Presumptive negative 12/02/18 02:58 U Benzodiazepines Scrn Presumptive negative 12/02/18 02:58 Presumptive negative 12/02/18 02:58 U Marijuana (THC) Screen Presumptive positive 12/02/18 02:58 Disclamer 12/02/18 02:58 Active Medications - Current Medications Current Medications: Generic Name Dose Route Start Last Admin Trade Name Freq PRN Reason Stop Dose Admin Acetaminophen 650 mg 12/02/18 05:03 Tylenol PO Q4H PRN Pain MILD(1-3)/Fever >100.5/TORRES Albuterol/Ipratropium 1 ampul 12/02/18 08:00 12/14/18 20:11 Duoneb *Not For Prn Use* IH 1 ampul Q6HRT DC Administration Amiodarone HCl 200 mg 12/08/18 10:00 12/14/18 14:00 Cordarone PO 200 mg QDAY DC Administration Lipase/Protease/Amylase 1 each 12/05/18 09:15 [place] 10,500 Unit FEEDTUBE PRN PRN For Clogged Feeding Tube Aspirin 81 mg 12/13/18 10:00 12/14/18 10:00 Halfprin Ec PO Not Given QDAY DC Atorvastatin Calcium 40 mg 12/12/18 22:00 12/14/18 21:57 Lipitor PO 40 mg QHS [facility] Administration Cilostazol 100 mg 12/06/18 11:00 12/14/18 21:53 Pletal PO 100 mg BID [facility] Administration Dextrose 25 ml 12/04/18 19:06 D50w (25gm) Syringe IV PRN PRN Hypoglycemia Famotidine 20 mg 12/06/18 10:00 12/14/18 21:52 Pepcid PO 20 mg BID [facility] Administration Furosemide 40 mg 12/07/18 14:00 12/14/18 14:00 Lasix PO 40 mg QDAY [facility] Administration Hydralazine HCl 10 mg 12/06/18 09:44 Apresoline IV Q4HR PRN Blood Pressure Hydrophilic Ointment 1 applic 12/02/18 00:45 Vaseline Lip Therapy TP Q2HR PRN Dry Lips Sodium Chloride 500 mls @ 50 mls/hr 12/14/18 07:00 Nacl 0.9% 500 Ml IV DIRECT [facility] Insulin Human Lispro 0 unit 12/04/18 07:00 12/14/18 13:36 Humalog SUB-Q Not Given Q6HR [facility] Protocol Isosorbide Mononitrate 30 mg 12/12/18 14:00 12/14/18 14:00 Imdur PO 30 mg QDAY [facility] Administration Lisinopril 20 mg 12/12/18 14:00 12/14/18 16:19 Zestril PO Not Given QDAY [facility] Lorazepam 1 mg 12/06/18 09:26 12/09/18 09:28 Ativan IV 1 mg Q4H PRN Administration Anxiety Metoprolol Tartrate 50 mg 12/11/18 22:00 12/14/18 21:58 Lopressor PO Not Given BID [facility] Multi-Ingred Cream/Lotion/Oil/Oint 1 applic 12/02/18 00:45 Artificial Tears Ophth Oint OU Q4HR PRN Dry Eye(s) Ondansetron HCl 4 mg 12/02/18 05:03 Zofran IV Q8H PRN Nausea And Vomiting Polyethylene Glycol 17 gm 12/11/18 12:37 Miralax 3350 FEEDTUBE QDAY PRN Constipation Simple Syrup 15 ml 12/05/18 09:15 Simple Syrup FEEDTUBE PRN PRN Hypoglycemia Simple Syrup 30 ml 12/05/18 09:15 Simple Syrup FEEDTUBE PRN PRN Hypoglycemia Sodium Bicarbonate 325 mg 12/05/18 09:15 Sodium Bicarbonate FEEDTUBE PRN PRN For Clogged Feeding Tube Sodium Chloride 10 ml 12/02/18 10:00 12/14/18 21:56 Sodium Chloride Flush Syringe 10 Ml IV 10 ml BID DC Administration Sodium Chloride 10 ml 12/02/18 05:03 Sodium Chloride Flush Syringe 10 Ml IV PRN PRN LINE FLUSH Ticagrelor 90 mg 12/12/18 22:00 12/14/18 21:58 Brilinta PO 90 mg BID DC Administration Nutrition/Malnutrition Assess - Dietary Evaluation Nutrition/Malnutrition Findings: Nutrition Notes Start: 12/02/18 08:27 Freq: Status: Active Protocol: Document 12/13/18 16:20 RM (Rec: 12/13/18 16:33 RM [id number]) Nutrition Notes Initial or Follow up Reassessment Current Diagnosis Hypertension,Heart Failure, Respiratory Failure, Hyperlipidemia Other Pertinent Diagnosis s/p cardiopulmonary arrest, septic shock, afib, bilat pneu Current Diet Cardiac Labs/Tests Reviewed Pertinent Medications Reviewed Height 5 ft 6 in Weight 94 kg [place] Body Weight (kg) 59.09 BMI 33.4 Subjective/Other Information Pt moved to .Clear liquid diet in place earlier today. Cardiac diet ordered later today. Pt stated that her appetite is good and that she drinks most of her meals. Declined Ensure Clear d/t not liking the flavor options. Percent of energy/protein needs met: 24%/19% Burn Absent Trauma Absent #1 Nutrition Diagnosis Inadequate oral intake As Evidenced by Signs and Symptoms pt meeting 24% of calorie and 19% of protein needs Diagnosis Progress(for reassessment Improved documentation) Is patient on ventilator? Yes Is Patient Ambulatory and/or Out of Bed No REE-([facility]-confined to bed) [phone] Calculation Used for Recommendations [facility] Additional Notes Pro needs: 62-77g (0.8-1g/kg 77 kg adjBW) Fluid needs 1ml/kcal Nutrition Intervention Change Diet Order: Continue current Nutrition Support: D/C Goal #1 Meet at least 75% of calorie and protein needs via PO intakes Anticipated Discharge Needs: Cardiac diet Follow-Up By: 12/15/18 Additional Comments Follow for PO intakes
[2018-12-15] MEDS: DUONEB *Not for PRN Use IH SCH ×3 (02:32→13:07)
[2018-12-15 05:41] LABS: Hematocrit 28.6 % (30.3-42.9); Mean Corpuscular HGB Conc 32 % (30-34); Mean Corpuscular Volume 83 fl (79-97); Platelet Count 779 K/mm3 (140-440); Red Blood Count 3.43 M/mm3 (3.65-5.03); Red Cell Distribution Width 16.1 % (13.2-15.2)
[2018-12-15] MEDS: HumaLOG SUB-Q SCH ×2 (05:52→13:00)
[2018-12-15 05:53] LABS: Creatine Kinase MB 4.1 ng/mL (0.0-4.0)
[2018-12-15 05:55] LABS: BUN/Creatinine Ratio 8; Blood Urea Nitrogen 7 mg/dL (7-17); Calcium 8.3 mg/dL (8.4-10.2); Hemolysis Index 0
[2018-12-15 06:59] LABS: Total Cells Counted 100
[2018-12-15 07:00] LABS: Anisocytosis 1+; Poikilocytosis Few
[2018-12-15 07:01] LABS: Platelet Estimate Consistent w Auto
--- NOTE | 2018-12-15 09:02 | XRay Report ---
CHEST 1 VIEW INDICATION: Status post coronary artery catheterization. COMPARISON: 12/13/2018 FINDINGS: Support devices: None. Heart: Stable mild cardiomegaly. Lungs/Pleura: Slight decrease in bilateral pulmonary congestion. Underlying chronic interstitial avila ges are stable. No pleural effusion or pneumothorax. Additional findings: None. IMPRESSION: No acute findings. Signer Name: Rhett Bella Jr, MD Signed: 12/15/2018 8:58 AM Workstation Name: [id number]
[2018-12-15] MEDS: PLETAL PO SCH (09:49)
[2018-12-15] MEDS: HALFPRIN EC PO SCH (09:49)
[2018-12-15] MEDS: BRILINTA PO SCH (09:49)
[2018-12-15] MEDS: PEPCID PO SCH (09:50)
[2018-12-15] MEDS: CORDARONE PO SCH (09:50)
[2018-12-15] MEDS: IMDUR PO SCH (09:50)
[2018-12-15] MEDS: LASIX PO SCH (09:51)
[2018-12-15] MEDS: ZESTRIL PO SCH (09:51)
[2018-12-15] MEDS: LOPRESSOR PO SCH (09:51)
[2018-12-15 09:55] VITALS: BP 114/70
[2018-12-15] MEDS: SODIUM CHLORIDE FLUSH SYRINGE 10 ML IV SCH (09:55)
--- NOTE | 2018-12-15 10:08 | Progress Note ---
Assessment and Plan Acute respiratory failure Extensive airspace disease on CT Leukocytosis Cardiopulmonary arrest Vfib requiring cardioversion in the ER -Lifevest has been placed MPI 09/16/2018 - normal Echo 09/16/2018 - normal LVEF Echo 12/02/2018- LVEF 30-35% [facility] findings: Severe three-vessel disease, including subtotal occlusion of the proximal circumflex artery, 80% stenosis of the mid LAD, and 90% stenosis of the mid right coronary artery. s/p PCI of the proximal circumflex with the 3.0 mm drug-eluting stent. s/p second vessel PCI to the mid LAD with a 2.75 mm drug-eluting stent s/p third vessel PCI of the mid RCA with a 3.5 mm drug eluting stent Abnormal troponin likely type II [place] post Vfib and electrical shock Paroxysmal Atrial fibrillation, new onset currently in sinus rhythm Right common femoral vein DVT - new diagnosis this admission Systemic Hypertension Peripheral vascular disease on cilostazol Hyperlipidemia Former smoker (quit in 2011) Morbid obesity Marijuana use Non-compliance with meds Plan: Lifevest has been placed. Continue medical therapy for paroxysmal atrial fibrillation, dilated cardiomyopathy and coronary artery disease as tolerated. Triple therapy with Eliquis, Plavix and a low dose ASA on discharge. Stable cardiac dang for discharge. Patient will follow up with Dr Roberson, December 21 at 250p. Subjective Date of service: 12/15/18 Principal diagnosis: Ac hypoxemic resp failure; ARDS; Septic Shock; DVT; Cardiac arrest Interval history: Patient denies chest pain and shortness of breath. Lifevest has been placed. Objective Vital Signs Temp Pulse Pulse Pulse Resp Resp Resp 12/15/18 09:51 82 12/15/18 09:50 82 12/15/18 08:51 74 20 12/15/18 08:50 12/15/18 08:33 98.8 F 74 16 12/15/18 03:57 98.4 F 79 18 12/15/18 02:00 88 18 12/14/18 23:26 98.4 F 77 19 12/14/18 22:00 12/14/18 20:24 98.6 F 76 18 12/14/18 20:14 88 18 12/14/18 19:00 78 12/14/18 16:48 74 12/14/18 16:23 77 12/14/18 16:02 76 12/14/18 15:33 76 12/14/18 14:47 68 12/14/18 14:33 71 12/14/18 14:19 78 12/14/18 14:00 76 12/14/18 13:29 75 18 12/14/18 13:26 69 BP Pulse Ox 12/15/18 09:51 114/70 12/15/18 09:50 114/70 12/15/18 08:51 12/15/18 08:50 99 12/15/18 08:33 114/68 94 12/15/18 03:57 115/60 92 12/15/18 02:00 12/14/18 23:26 125/61 98 12/14/18 22:00 98 12/14/18 20:24 119/60 95 12/14/18 20:14 12/14/18 19:00 12/14/18 16:48 125/62 95 12/14/18 16:23 127/57 96 12/14/18 16:02 137/62 95 12/14/18 15:33 134/78 96 12/14/18 14:47 146/56 96 12/14/18 14:33 139/73 96 12/14/18 14:19 149/76 99 12/14/18 14:00 137/62 12/14/18 13:29 12/14/18 13:26 144/67 93 - Physical Examination General: Appears Well, No Apparent Distress HEENT: Positive: PERRL Neck: Positive: trachea midline Cardiac: Positive: Reg Rate and Rhythm Lungs: Positive: Decreased Breath Sounds Neuro: Positive: Grossly Intact Abdomen: Positive: Soft - Labs and Meds Cardiac Enzymes 12/15/18 Range/Units 05:11 CK-MB (CK-2) 4.1 H (0.0-4.0) ng/mL CBC 12/14/18 12/15/18 Range/Units 13:40 05:11 WBC 24.2 H 23.1 H (4.5-11.0) K/mm3 RBC 3.42 L 3.43 L (3.65-5.03) M/mm3 Hgb 9.2 L 9.0 L (10.1-14.3) gm/dl Hct 28.5 L 28.6 L (30.3-42.9) % Plt Count 730 H 779 H (140-440) K/mm3 Comprehensive Metabolic Panel 12/15/18 Range/Units 05:11 Sodium 139 (137-145) mmol/L Potassium 4.0 (3.6-5.0) mmol/L Chloride 105.7 (98-107) mmol/L Carbon Dioxide 21 L (22-30) mmol/L BUN 7 (7-17) mg/dL Creatinine 0.9 (0.7-1.2) mg/dL Glucose 111 H (65-100) mg/dL Calcium 8.3 L (8.4-10.2) mg/dL - Allied health notes Allied health notes reviewed: RT
--- NOTE | 2018-12-15 11:22 | Progress Note ---
Assessment and Plan Cultures: 12/02/2018 sputum culture: Usual respiratory nolan 12/02/2018 urine culture: No growth 12/02/2018 blood culture: No growth A/P: 53-year-old female with hypertension, hyperlipidemia, peripheral vascular disease presented to the emergency room on 12/02/2018 with complaints of chest pain, developed V.fib arrest, now with: 1) Shock, multifactorial: Cardiogenic versus septic. Patient with V. fib arrest. Developed bilateral aspiration pneumonia vs pneumonitis. Now alert, oriented, extubated. 2) Bilateral airspace disease with concern for pneumonia with acute respiratory failure: CXR and CT chest showed bilateral airspace disease. Noted to have gastric content aspiration on admission. Cultures negative. Antibiotic course complete. 3) Mixed acidosis: improved 4) V.fib arrest: cardiology following. EF 30-35%. 5) Leukocytosis; trending down. unclear etiology, as patient clinically improving. 6) Acute right common femoral vein DVT - right leg edematous. On Tirofiban. Recs: Continue to monitor off antibiotics Clinically stable, ID is signing off [employer] M: [id number] O:[phone] Subjective Date of service: 12/15/18 Principal diagnosis: Ac hypoxemic resp failure; ARDS; Septic Shock; DVT; Cardiac arrest Interval history: Patient seen and examined. Reports no acute distress. No fevers. Objective - Exam Narrative Exam: Constitutional: awake, no distress, following commands Head, Ears, Nose: Normocephalic, atraumatic. External ears, NG tube in place Eyes: Conjunctivae/corneas clear. No icterus. No ptosis. Neck: Supple, no meningeal signs Oral: moist mucous membranes, fair dentition Cardiovascular: S1, S2 normal. Normal rhythm Respiratory: Good air entry, clear to auscultation bilaterally GI: Soft, non-tender; bowel sounds normal. No peritoneal signs Musculoskeletal: RLE edema 2+, RLE tenderness Skin: No rash or abscess Hem/Lymphatic: No palpable cervical or supraclavicular nodes. No lymphangitis Psych: no agitation Neurological: Moves all extremities, no focal defects - Constitutional Vitals: Vital Signs Temp Pulse Resp BP Pulse Ox 98.8 F 82 20 114/70 99 12/15/18 08:33 12/15/18 09:51 12/15/18 08:51 12/15/18 09:51 12/15/18 08:50 Temperature -Last 24 Hours Temperature 98.8 F Temperature 98.4 F Temperature 98.4 F Temperature 98.6 F - Labs CBC & Chem 7: 12/15/18 05:11 12/15/18 05:11 Labs: Abnormal lab results 12/14/18 12/14/18 12/14/18 Range/Units 12:42 13:40 16:52 WBC 24.2 H (4.5-11.0) K/mm3 RBC 3.42 L (3.65-5.03) M/mm3 Hgb 9.2 L (10.1-14.3) gm/dl Hct 28.5 L (30.3-42.9) % MCH 27 L (28-32) pg RDW 16.3 H (13.2-15.2) % Plt Count 730 H (140-440) K/mm3 Seg Neuts % (Manual) 75.0 H (40.0-70.0) % Nucleated RBC % 2.0 H (0.0-0.9) % Seg Neutrophils # Man 18.2 H (1.8-7.7) K/mm3 Monocytes # (Manual) 1.0 H (0.0-0.8) K/mm3 Eosinophils # (Manual) 0.7 H (0.0-0.4) K/mm3 Basophils # (Manual) 0.2 H (0.0-0.1) K/mm3 Activated Clotting Time 246 H (74-137) Carbon Dioxide (22-30) mmol/L Glucose (65-100) mg/dL POC Glucose 107 H (70-105) Calcium (8.4-10.2) mg/dL CK-MB (CK-2) (0.0-4.0) ng/mL Troponin T (0.00-0.029) ng/mL 12/15/18 12/15/18 12/15/18 Range/Units 05:11 05:11 05:56 WBC 23.1 H (4.5-11.0) K/mm3 RBC 3.43 L (3.65-5.03) M/mm3 Hgb 9.0 L (10.1-14.3) gm/dl Hct 28.6 L (30.3-42.9) % MCH 26 L (28-32) pg RDW 16.1 H (13.2-15.2) % Plt Count 779 H (140-440) K/mm3 Seg Neuts % (Manual) 76.0 H (40.0-70.0) % Nucleated RBC % (0.0-0.9) % Seg Neutrophils # Man 17.6 H (1.8-7.7) K/mm3 Monocytes # (Manual) 0.9 H (0.0-0.8) K/mm3 Eosinophils # (Manual) 0.5 H (0.0-0.4) K/mm3 Basophils # (Manual) 0.2 H (0.0-0.1) K/mm3 Activated Clotting Time (74-137) Carbon Dioxide 21 L (22-30) mmol/L Glucose 111 H (65-100) mg/dL POC Glucose 111 H (70-105) Calcium 8.3 L (8.4-10.2) mg/dL CK-MB (CK-2) 4.1 H (0.0-4.0) ng/mL Troponin T 0.919 H* D (0.00-0.029) ng/mL
--- NOTE | 2018-12-15 11:57 | Discharge Summary ---
Providers - Providers Date of Admission: 12/02/18 06:07 Attending physician: HONORIO BYERS MD 12/02/18 00:45 Consult to Dietitian/Nutrition [CONS] Routine Physician Instructions: Reason For Exam: Reason for Consult: Evaluate nutritional intake 12/02/18 03:36 Consult to Physician [CONS] Stat Comment: Dr. Peralta spoke with Dr. Avina @ [phone] Consulting Provider: ALICIA AVINA Physician Instructions: Reason For Exam: cardiopulmonary arrest, ventricular fibrillation 12/02/18 05:03 Consult to Physician [CONS] Routine Comment: Consulting Provider: MEGAN GRIMM Physician Instructions: Reason For Exam: cc 12/02/18 11:09 Consult to PICC Line RN [CONS] Stat Reason For Exam: Vasopressor gtts. Type Line:: PICC 12/03/18 10:34 Consult to Physician [CONS] Routine Comment: Consulting Provider: CYNTHIA ADY Physician Instructions: Reason For Exam: sepsis 12/04/18 17:50 Consult to Dietitian/Nutrition [CONS] Routine Physician Instructions: Reason For Exam: Tube feeding Reason for Consult: Write/Manage Tube Feeding 12/11/18 12:07 Speech Therapy Evaluation and Treat [CONS] Urgent Reason For Exam: Post extubation 12/11/18 12:09 Physical Therapy Evaluation and Treat [CONS] Routine Comment: Reason For Exam: Weakness 12/11/18 12:11 Occupational Therapy Evaluate and Treat [CONS] Routine Comment: Reason For Exam: Weakness 12/11/18 15:33 Consult to Physician [CONS] Routine Comment: Consulting Provider: BRYON GRACIA Physician Instructions: Reason For Exam: retained picc line tip 12/12/18 Consult to Cardiac Rehabilitation [CONS] Routine Reason For Exam: post pci 12/14/18 Consult to Cardiac Rehabilitation [CONS] Routine Reason For Exam: post pci [facility] Condition: Stable Disposition: DC/[place]-03 [facility] Time spent for discharge: 33 mins Exam - Constitutional Vitals: Temp Pulse Resp BP Pulse Ox 98.8 F 82 20 114/70 99 12/15/18 08:33 12/15/18 09:51 12/15/18 08:51 12/15/18 09:51 12/15/18 08:50 Plan Follow up with: [facility] ADRIAN [Primary Care Provider] - 3-5 Days Prescriptions: AtorvaSTATin [Lipitor] 40 mg PO QHS #30 tablet Aspirin EC 81 mg PO QDAY #30 tablet Ticagrelor [Brilinta] 90 mg PO BID #60 tablet Amiodarone [Cordarone 200 MG TAB] 200 mg PO QDAY #30 tablet ISOSORBIDE MONOnitrate [Imdur ER] 30 mg PO QDAY #30 tablet Furosemide [Lasix TAB] 40 mg PO QDAY #30 tablet Metoprolol [Lopressor TAB] 50 mg PO BID #60 tablet Polyethylene Glycol 3350 [Miralax 3350] 17 gm FEEDTUBE QDAY PRN #30 powd.pack PRN Reason: Constipation Cilostazol [Pletal] 75 mg PO BID #60 tablet Pantoprazole [Protonix TAB] 40 mg PO QDAY #30 tablet Lisinopril [Zestril TAB] 20 mg PO QDAY #30 tablet
--- NOTE | 2018-12-15 12:41 | Progress Note ---
Assessment and Plan Acute hypoxemic respiratory failure, on mechanical ventilatory support. Acute respiratory distress syndrome. Severe sepsis with shock. Aspiration pneumonia. Status post cardiac arrest with return of spontaneous circulation. Obesity. Hypertension. Hyperlipidemia. History of peripheral vascular disease. Leukocytosis that is mild. Elevated D-dimer. Hypercapnic respiratory failure. Elevated serum troponins. Hypokalemia. Mild metabolic acidosis. - follow cath report - gentle diuresis (lasix 40 mg po daily) - continue PT/OT/ROM exercises as tolerated - continue lovenox for DVT therapy - continue chronic disease med's per attending - 2D ECHO report noted (EF 30-35%; no pulmonary HTN) - heart failure regimen per cardiology (on b-lj and nitrate) - prn bronchodilators with pulmonary hygiene per RT - completed empiric AB's - aspiration precautions - wean supplemental oxygen as needed to keep O2 sat's > 90% - continue accuchecks with glycemic control per SSI for target blood glucose 140 - 180 mg/dL acutely - Agitation management - Prevention of delirium, maintenance of sleep-wake cycle - VTE and Stress ulcer prophylaxis - continue other care per attending / other consultants ... improved Subjective Date of service: 12/15/18 Principal diagnosis: Ac hypoxemic resp failure; ARDS; Septic Shock; DVT; Cardiac arrest Interval history: Patient is seen today for: Acute hypoxemic respiratory failure; ARDS; Severe sepsis with shock; Aspiration pneumonia; Status post cardiac arrest with return of spontaneous circulation; Obesity.; Acute DVT Seen and examined at bedside; 24hour events reviewed; nursing and respiratory care staff consulted; no adverse overnight events reported to me; doing much better; denies acute chest pains or palpitations; Objective Vital Signs - 12hr 12/15/18 12/15/18 12/15/18 02:00 03:57 08:33 Temperature 98.4 F 98.8 F Pulse Rate 79 74 Pulse Rate [ 88 Bilateral Throughout] Respiratory 18 16 Rate Respiratory 18 Rate [Bilateral Throughout] Blood Pressure 115/60 114/68 O2 Sat by Pulse 92 94 Oximetry 12/15/18 12/15/18 12/15/18 08:50 08:51 09:50 Temperature Pulse Rate 82 Pulse Rate [ 74 Bilateral Throughout] Respiratory Rate Respiratory 20 Rate [Bilateral Throughout] Blood Pressure 114/70 O2 Sat by Pulse 99 Oximetry 12/15/18 12/15/18 09:51 12:04 Temperature Pulse Rate 82 Pulse Rate [ Bilateral Throughout] Respiratory 18 Rate Respiratory Rate [Bilateral Throughout] Blood Pressure 114/70 O2 Sat by Pulse Oximetry Constitutional: no acute distress, alert, other (young obese AAF, normocephalic and atraumatic) Eyes: non-icteric ENT: oropharynx moist Neck: supple, no lymphadenopathy, no JVD, other (large neck circumference) Effort: normal Ascultation: Bilateral: clear, diminished breath sounds, rales Percussion: Bilateral: not dull Cardiovascular: regular rate and rhythm, other (no R/M) Gastrointestinal: normoactive bowel sounds, soft, non-tender, non-distended, other (No HSM) Integumentary: normal Extremities: no cyanosis, pulses normal, no ischemia or petechiae Neurologic: normal mental status, non-focal exam (grossly), pupils equal and round, motor strength normal and Psychiatric: mood appropriate, affect normal CBC and BMP: 12/15/18 05:11 12/15/18 05:11 ABG, PT/INR, D-dimer: ABG POC ABG pH 7.445 (7.35-7.45) 12/10/18 16:54 POC ABG pCO2 42.2 (35-45) 12/10/18 16:54 POC ABG pO2 95 (80-105) 12/10/18 16:54 POC ABG HCO3 29.0 (22-26 mml/L) 12/10/18 16:54 POC ABG Total CO2 30 (23-27mmol/L) 12/10/18 16:54 POC ABG O2 Sat 98 12/10/18 16:54 PT/INR, D-dimer PT 16.3 Sec. (12.2-14.9) H 12/14/18 05:04 INR 1.35 (0.87-1.13) H 12/14/18 05:04 1085.94 ng/mlDDU (0-234) H 12/02/18 00:30 Abnormal lab findings: Abnormal Labs 12/02/18 12/02/18 12/02/18 00:30 00:30 00:30 WBC 11.6 H RBC Hgb Hct MCH RDW 18.1 H Plt Count Seg Neuts % (Manual) 35.0 L Lymphocytes % (Manual) 41.0 H Monocytes % (Manual) 11.0 H Eosinophils % (Manual) 6.0 H Basophils % (Manual) Nucleated RBC % Seg Neutrophils # Seg Neutrophils # Man Lymphocytes # (Manual) Monocytes # (Manual) 1.3 H Eosinophils # (Manual) 0.7 H Basophils # (Manual) PT INR Activated Clotting Time D-Dimer 1085.94 H Heparin Anti-Xa Level POC ABG pH POC ABG pCO2 POC ABG pO2 Sodium Potassium 3.1 L Chloride Carbon Dioxide 21 L BUN 20 H Creatinine Glucose 222 H POC Glucose Lactic Acid Calcium Phosphorus Magnesium AST Total Creatine Kinase CK-MB (CK-2) CK-MB (CK-2) Rel Index Troponin T C-Reactive Protein Albumin Triglycerides LDL Cholesterol Direct HDL Cholesterol Urine WBC (Auto) 12/02/18 12/02/18 12/02/18 01:26 02:58 03:14 WBC RBC Hgb Hct MCH RDW Plt Count Seg Neuts % (Manual) Lymphocytes % (Manual) Monocytes % (Manual) Eosinophils % (Manual) Basophils % (Manual) Nucleated RBC % Seg Neutrophils # Seg Neutrophils # Man Lymphocytes # (Manual) Monocytes # (Manual) Eosinophils # (Manual) Basophils # (Manual) PT INR Activated Clotting Time D-Dimer Heparin Anti-Xa Level POC ABG pH 7.212 L POC ABG pCO2 55.1 H POC ABG pO2 121 H Sodium Potassium Chloride Carbon Dioxide BUN Creatinine Glucose POC Glucose Lactic Acid Calcium Phosphorus Magnesium AST Total Creatine Kinase CK-MB (CK-2) CK-MB (CK-2) Rel Index Troponin T 0.054 H D C-Reactive Protein Albumin Triglycerides 358 H LDL Cholesterol Direct 42 L HDL Cholesterol 29 L Urine WBC (Auto) 12.0 H 12/02/18 12/02/18 12/02/18 04:52 05:26 06:19 WBC RBC Hgb Hct MCH RDW Plt Count Seg Neuts % (Manual) Lymphocytes % (Manual) Monocytes % (Manual) Eosinophils % (Manual) Basophils % (Manual) Nucleated RBC % Seg Neutrophils # Seg Neutrophils # Man Lymphocytes # (Manual) Monocytes # (Manual) Eosinophils # (Manual) Basophils # (Manual) PT INR Activated Clotting Time D-Dimer Heparin Anti-Xa Level POC ABG pH 7.217 L 7.155 L POC ABG pCO2 52.7 H 57.3 H POC ABG pO2 56 L 57 L Sodium Potassium Chloride Carbon Dioxide BUN Creatinine Glucose POC Glucose Lactic Acid Calcium Phosphorus Magnesium AST Total Creatine Kinase 224 H CK-MB (CK-2) 30.7 H CK-MB (CK-2) Rel Index 13.7 H Troponin T 0.227 H* D C-Reactive Protein Albumin Triglycerides LDL Cholesterol Direct HDL Cholesterol Urine WBC (Auto) 12/02/18 12/02/18 12/02/18 07:52 10:50 10:50 WBC RBC Hgb Hct MCH RDW Plt Count Seg Neuts % (Manual) Lymphocytes % (Manual) Monocytes % (Manual) Eosinophils % (Manual) Basophils % (Manual) Nucleated RBC % Seg Neutrophils # Seg Neutrophils # Man Lymphocytes # (Manual) Monocytes # (Manual) Eosinophils # (Manual) Basophils # (Manual) PT INR Activated Clotting Time D-Dimer Heparin Anti-Xa Level POC ABG pH 7.150 L POC ABG pCO2 56.3 H POC ABG pO2 53 L Sodium Potassium Chloride Carbon Dioxide BUN Creatinine Glucose POC Glucose Lactic Acid Calcium Phosphorus Magnesium AST Total Creatine Kinase 1322 H CK-MB (CK-2) 216.7 H CK-MB (CK-2) Rel Index 16.3 H Troponin T 0.871 H* D C-Reactive Protein 4.30 H Albumin Triglycerides LDL Cholesterol Direct HDL Cholesterol Urine WBC (Auto) 12/02/18 12/02/18 12/02/18 10:50 10:50 17:46 WBC RBC Hgb Hct MCH RDW Plt Count Seg Neuts % (Manual) Lymphocytes % (Manual) Monocytes % (Manual) Eosinophils % (Manual) Basophils % (Manual) Nucleated RBC % Seg Neutrophils # Seg Neutrophils # Man Lymphocytes # (Manual) Monocytes # (Manual) Eosinophils # (Manual) Basophils # (Manual) PT INR 1.15 H Activated Clotting Time D-Dimer Heparin Anti-Xa Level POC ABG pH POC ABG pCO2 POC ABG pO2 Sodium Potassium Chloride Carbon Dioxide BUN Creatinine Glucose POC Glucose 135 H Lactic Acid 5.90 H* Calcium Phosphorus Magnesium AST Total Creatine Kinase CK-MB (CK-2) CK-MB (CK-2) Rel Index Troponin T C-Reactive Protein Albumin Triglycerides LDL Cholesterol Direct HDL Cholesterol Urine WBC (Auto) 12/02/18 12/02/18 12/03/18 18:09 20:18 01:47 WBC RBC Hgb Hct MCH RDW Plt Count Seg Neuts % (Manual) Lymphocytes % (Manual) Monocytes % (Manual) Eosinophils % (Manual) Basophils % (Manual) Nucleated RBC % Seg Neutrophils # Seg Neutrophils # Man Lymphocytes # (Manual) Monocytes # (Manual) Eosinophils # (Manual) Basophils # (Manual) PT INR Activated Clotting Time D-Dimer Heparin Anti-Xa Level < 0.10 L POC ABG pH 7.167 L 7.118 L POC ABG pCO2 52.6 H 55.1 H POC ABG pO2 79 L Sodium Potassium Chloride Carbon Dioxide BUN Creatinine Glucose POC Glucose Lactic Acid Calcium Phosphorus Magnesium AST Total Creatine Kinase CK-MB (CK-2) CK-MB (CK-2) Rel Index Troponin T C-Reactive Protein Albumin Triglycerides LDL Cholesterol Direct HDL Cholesterol Urine WBC (Auto) 12/03/18 12/03/18 12/03/18 04:07 04:07 06:30 WBC 26.3 H RBC Hgb Hct MCH RDW 15.9 H Plt Count Seg Neuts % (Manual) 76.0 H Lymphocytes % (Manual) 6.0 L Monocytes % (Manual) Eosinophils % (Manual) Basophils % (Manual) Nucleated RBC % Seg Neutrophils # 24.3 H Seg Neutrophils # Man 20.0 H Lymphocytes # (Manual) Monocytes # (Manual) Eosinophils # (Manual) Basophils # (Manual) PT INR Activated Clotting Time D-Dimer Heparin Anti-Xa Level POC ABG pH 7.326 L POC ABG pCO2 POC ABG pO2 290 H Sodium Potassium 3.5 L Chloride Carbon Dioxide 21 L BUN 19 H Creatinine Glucose 252 H POC Glucose Lactic Acid Calcium 6.7 L D Phosphorus Magnesium AST Total Creatine Kinase CK-MB (CK-2) CK-MB (CK-2) Rel Index Troponin T C-Reactive Protein Albumin Triglycerides LDL Cholesterol Direct HDL Cholesterol Urine WBC (Auto) 12/03/18 12/03/18 12/03/18 09:07 09:07 09:07 WBC RBC Hgb Hct MCH RDW Plt Count Seg Neuts % (Manual) Lymphocytes % (Manual) Monocytes % (Manual) Eosinophils % (Manual) Basophils % (Manual) Nucleated RBC % Seg Neutrophils # Seg Neutrophils # Man Lymphocytes # (Manual) Monocytes # (Manual) Eosinophils # (Manual) Basophils # (Manual) PT INR Activated Clotting Time D-Dimer Heparin Anti-Xa Level < 0.10 L POC ABG pH POC ABG pCO2 POC ABG pO2 Sodium Potassium Chloride Carbon Dioxide BUN Creatinine Glucose POC Glucose Lactic Acid 2.90 H* Calcium Phosphorus Magnesium 1.20 L AST Total Creatine Kinase CK-MB (CK-2) CK-MB (CK-2) Rel Index Troponin T C-Reactive Protein Albumin Triglycerides LDL Cholesterol Direct HDL Cholesterol Urine WBC (Auto) 12/03/18 12/03/18 12/04/18 11:51 18:11 05:16 WBC RBC Hgb Hct MCH RDW Plt Count Seg Neuts % (Manual) Lymphocytes % (Manual) Monocytes % (Manual) Eosinophils % (Manual) Basophils % (Manual) Nucleated RBC % Seg Neutrophils # Seg Neutrophils # Man Lymphocytes # (Manual) Monocytes # (Manual) Eosinophils # (Manual) Basophils # (Manual) PT INR Activated Clotting Time D-Dimer Heparin Anti-Xa Level POC ABG pH 7.464 H POC ABG pCO2 33.7 L POC ABG pO2 Sodium Potassium Chloride Carbon Dioxide BUN Creatinine Glucose POC Glucose 158 H 129 H Lactic Acid Calcium Phosphorus Magnesium AST Total Creatine Kinase CK-MB (CK-2) CK-MB (CK-2) Rel Index Troponin T C-Reactive Protein Albumin Triglycerides LDL Cholesterol Direct HDL Cholesterol Urine WBC (Auto) 12/04/18 12/04/18 12/04/18 05:23 05:23 05:23 WBC 23.7 H RBC 3.04 L Hgb 8.3 L Hct 25.2 L D MCH 27 L RDW 16.0 H Plt Count Seg Neuts % (Manual) 97.0 H Lymphocytes % (Manual) 1.0 L Monocytes % (Manual) Eosinophils % (Manual) Basophils % (Manual) Nucleated RBC % Seg Neutrophils # Seg Neutrophils # Man 23.0 H Lymphocytes # (Manual) 0.2 L Monocytes # (Manual) Eosinophils # (Manual) Basophils # (Manual) PT INR Activated Clotting Time D-Dimer Heparin Anti-Xa Level POC ABG pH POC ABG pCO2 POC ABG pO2 Sodium 136 L Potassium 2.5 L* D Chloride 92.9 L Carbon Dioxide 36 H D BUN Creatinine Glucose 528 H* POC Glucose Lactic Acid 2.20 H* Calcium 6.0 L Phosphorus Magnesium AST Total Creatine Kinase CK-MB (CK-2) CK-MB (CK-2) Rel Index Troponin T C-Reactive Protein Albumin Triglycerides LDL Cholesterol Direct HDL Cholesterol Urine WBC (Auto) 12/04/18 12/04/18 12/04/18 05:23 08:03 08:03 WBC RBC Hgb Hct MCH RDW Plt Count Seg Neuts % (Manual) Lymphocytes % (Manual) Monocytes % (Manual) Eosinophils % (Manual) Basophils % (Manual) Nucleated RBC % Seg Neutrophils # Seg Neutrophils # Man Lymphocytes # (Manual) Monocytes # (Manual) Eosinophils # (Manual) Basophils # (Manual) PT INR Activated Clotting Time D-Dimer Heparin Anti-Xa Level POC ABG pH POC ABG pCO2 POC ABG pO2 Sodium Potassium Chloride Carbon Dioxide BUN Creatinine Glucose POC Glucose Lactic Acid 2.90 H* Calcium Phosphorus Magnesium 1.40 L AST Total Creatine Kinase CK-MB (CK-2) CK-MB (CK-2) Rel Index Troponin T C-Reactive Protein 32.60 H Albumin Triglycerides LDL Cholesterol Direct HDL Cholesterol Urine WBC (Auto) 12/04/18 12/04/18 12/04/18 12:20 12:24 12:53 WBC RBC Hgb Hct MCH RDW Plt Count Seg Neuts % (Manual) Lymphocytes % (Manual) Monocytes % (Manual) Eosinophils % (Manual) Basophils % (Manual) Nucleated RBC % Seg Neutrophils # Seg Neutrophils # Man Lymphocytes # (Manual) Monocytes # (Manual) Eosinophils # (Manual) Basophils # (Manual) PT INR Activated Clotting Time D-Dimer Heparin Anti-Xa Level POC ABG pH POC ABG pCO2 POC ABG pO2 Sodium Potassium 3.2 L D Chloride Carbon Dioxide BUN Creatinine Glucose 170 H POC Glucose 52 L 54 L Lactic Acid Calcium 6.7 L Phosphorus Magnesium AST Total Creatine Kinase CK-MB (CK-2) CK-MB (CK-2) Rel Index Troponin T C-Reactive Protein Albumin Triglycerides LDL Cholesterol Direct HDL Cholesterol Urine WBC (Auto) 12/04/18 12/05/18 12/05/18 13:06 05:22 05:22 WBC 26.1 H RBC 3.61 L Hgb 9.7 L Hct 30.1 L MCH 27 L RDW 16.5 H Plt Count Seg Neuts % (Manual) Lymphocytes % (Manual) Monocytes % (Manual) Eosinophils % (Manual) Basophils % (Manual) Nucleated RBC % Seg Neutrophils # Seg Neutrophils # Man Lymphocytes # (Manual) Monocytes # (Manual) Eosinophils # (Manual) Basophils # (Manual) PT INR Activated Clotting Time D-Dimer Heparin Anti-Xa Level POC ABG pH POC ABG pCO2 POC ABG pO2 Sodium Potassium Chloride 113.9 H Carbon Dioxide BUN Creatinine Glucose POC Glucose 171 H Lactic Acid Calcium 7.8 L D Phosphorus Magnesium 2.50 H AST Total Creatine Kinase CK-MB (CK-2) CK-MB (CK-2) Rel Index Troponin T C-Reactive Protein Albumin Triglycerides LDL Cholesterol Direct HDL Cholesterol Urine WBC (Auto) 12/05/18 12/05/18 12/06/18 05:49 21:04 04:36 WBC 22.6 H RBC 3.62 L Hgb 9.9 L Hct 30.0 L MCH 27 L RDW 16.4 H Plt Count Seg Neuts % (Manual) 90.0 H Lymphocytes % (Manual) 6.0 L Monocytes % (Manual) Eosinophils % (Manual) Basophils % (Manual) Nucleated RBC % Seg Neutrophils # Seg Neutrophils # Man 20.3 H Lymphocytes # (Manual) Monocytes # (Manual) Eosinophils # (Manual) Basophils # (Manual) PT INR Activated Clotting Time D-Dimer Heparin Anti-Xa Level 0.14 L POC ABG pH 7.315 L POC ABG pCO2 POC ABG pO2 Sodium Potassium Chloride Carbon Dioxide BUN Creatinine Glucose POC Glucose Lactic Acid Calcium Phosphorus Magnesium AST Total Creatine Kinase CK-MB (CK-2) CK-MB (CK-2) Rel Index Troponin T C-Reactive Protein Albumin Triglycerides LDL Cholesterol Direct HDL Cholesterol Urine WBC (Auto) 12/06/18 12/06/18 12/06/18 04:36 04:36 05:37 WBC RBC Hgb Hct MCH RDW Plt Count Seg Neuts % (Manual) Lymphocytes % (Manual) Monocytes % (Manual) Eosinophils % (Manual) Basophils % (Manual) Nucleated RBC % Seg Neutrophils # Seg Neutrophils # Man Lymphocytes # (Manual) Monocytes # (Manual) Eosinophils # (Manual) Basophils # (Manual) PT INR Activated Clotting Time D-Dimer Heparin Anti-Xa Level < 0.10 L POC ABG pH POC ABG pCO2 POC ABG pO2 Sodium Potassium Chloride 111.6 H Carbon Dioxide BUN Creatinine Glucose 114 H POC Glucose 121 H Lactic Acid Calcium 8.0 L Phosphorus Magnesium AST 41 H Total Creatine Kinase CK-MB (CK-2) CK-MB (CK-2) Rel Index Troponin T C-Reactive Protein Albumin 2.3 L Triglycerides LDL Cholesterol Direct HDL Cholesterol Urine WBC (Auto) 12/06/18 12/06/18 12/06/18 11:46 14:15 18:34 WBC RBC Hgb Hct MCH RDW Plt Count Seg Neuts % (Manual) Lymphocytes % (Manual) Monocytes % (Manual) Eosinophils % (Manual) Basophils % (Manual) Nucleated RBC % Seg Neutrophils # Seg Neutrophils # Man Lymphocytes # (Manual) Monocytes # (Manual) Eosinophils # (Manual) Basophils # (Manual) PT INR Activated Clotting Time D-Dimer Heparin Anti-Xa Level 1.22 H POC ABG pH POC ABG pCO2 POC ABG pO2 Sodium Potassium Chloride Carbon Dioxide BUN Creatinine Glucose POC Glucose 122 H 110 H Lactic Acid Calcium Phosphorus Magnesium AST Total Creatine Kinase CK-MB (CK-2) CK-MB (CK-2) Rel Index Troponin T C-Reactive Protein Albumin Triglycerides LDL Cholesterol Direct HDL Cholesterol Urine WBC (Auto) 12/06/18 12/06/18 12/07/18 23:00 23:11 03:23 WBC RBC Hgb Hct MCH RDW Plt Count Seg Neuts % (Manual) Lymphocytes % (Manual) Monocytes % (Manual) Eosinophils % (Manual) Basophils % (Manual) Nucleated RBC % Seg Neutrophils # Seg Neutrophils # Man Lymphocytes # (Manual) Monocytes # (Manual) Eosinophils # (Manual) Basophils # (Manual) PT INR Activated Clotting Time D-Dimer Heparin Anti-Xa Level 0.15 L POC ABG pH POC ABG pCO2 POC ABG pO2 60 L Sodium Potassium Chloride Carbon Dioxide BUN Creatinine Glucose POC Glucose 138 H Lactic Acid Calcium Phosphorus Magnesium AST Total Creatine Kinase CK-MB (CK-2) CK-MB (CK-2) Rel Index Troponin T C-Reactive Protein Albumin Triglycerides LDL Cholesterol Direct HDL Cholesterol Urine WBC (Auto) 12/07/18 12/07/18 12/07/18 04:45 04:45 05:47 WBC 16.6 H RBC 3.56 L Hgb 9.7 L Hct 29.4 L MCH 27 L RDW 15.9 H Plt Count Seg Neuts % (Manual) 86.0 H Lymphocytes % (Manual) 12.0 L Monocytes % (Manual) Eosinophils % (Manual) Basophils % (Manual) Nucleated RBC % Seg Neutrophils # Seg Neutrophils # Man 14.3 H Lymphocytes # (Manual) Monocytes # (Manual) Eosinophils # (Manual) Basophils # (Manual) PT INR Activated Clotting Time D-Dimer Heparin Anti-Xa Level POC ABG pH POC ABG pCO2 POC ABG pO2 Sodium Potassium 3.2 L Chloride 107.6 H Carbon Dioxide BUN 20 H Creatinine Glucose 138 H POC Glucose 160 H Lactic Acid Calcium 8.0 L Phosphorus Magnesium AST Total Creatine Kinase CK-MB (CK-2) CK-MB (CK-2) Rel Index Troponin T C-Reactive Protein Albumin Triglycerides LDL Cholesterol Direct HDL Cholesterol Urine WBC (Auto) 12/07/18 12/07/18 12/07/18 06:45 09:14 12:46 WBC RBC Hgb Hct MCH RDW Plt Count Seg Neuts % (Manual) Lymphocytes % (Manual) Monocytes % (Manual) Eosinophils % (Manual) Basophils % (Manual) Nucleated RBC % Seg Neutrophils # Seg Neutrophils # Man Lymphocytes # (Manual) Monocytes # (Manual) Eosinophils # (Manual) Basophils # (Manual) PT INR Activated Clotting Time D-Dimer Heparin Anti-Xa Level < 0.10 L POC ABG pH POC ABG pCO2 POC ABG pO2 Sodium Potassium Chloride Carbon Dioxide BUN Creatinine Glucose POC Glucose 129 H Lactic Acid Calcium Phosphorus 1.80 L Magnesium AST Total Creatine Kinase CK-MB (CK-2) CK-MB (CK-2) Rel Index Troponin T C-Reactive Protein Albumin Triglycerides LDL Cholesterol Direct HDL Cholesterol Urine WBC (Auto) 12/07/18 12/07/18 12/08/18 17:33 23:42 05:09 WBC RBC Hgb Hct MCH RDW Plt Count Seg Neuts % (Manual) Lymphocytes % (Manual) Monocytes % (Manual) Eosinophils % (Manual) Basophils % (Manual) Nucleated RBC % Seg Neutrophils # Seg Neutrophils # Man Lymphocytes # (Manual) Monocytes # (Manual) Eosinophils # (Manual) Basophils # (Manual) PT INR Activated Clotting Time D-Dimer Heparin Anti-Xa Level POC ABG pH POC ABG pCO2 POC ABG pO2 Sodium Potassium Chloride Carbon Dioxide BUN Creatinine Glucose POC Glucose 131 H 141 H 151 H Lactic Acid Calcium Phosphorus Magnesium AST Total Creatine Kinase CK-MB (CK-2) CK-MB (CK-2) Rel Index Troponin T C-Reactive Protein Albumin Triglycerides LDL Cholesterol Direct HDL Cholesterol Urine WBC (Auto) 12/08/18 12/08/18 12/08/18 06:10 06:10 12:03 WBC 22.7 H RBC 3.50 L Hgb 9.4 L Hct 28.8 L MCH 27 L RDW 16.3 H Plt Count Seg Neuts % (Manual) Lymphocytes % (Manual) Monocytes % (Manual) Eosinophils % (Manual) 10.0 H Basophils % (Manual) Nucleated RBC % Seg Neutrophils # Seg Neutrophils # Man 14.1 H Lymphocytes # (Manual) 6.1 H Monocytes # (Manual) Eosinophils # (Manual) 2.3 H Basophils # (Manual) PT INR Activated Clotting Time D-Dimer Heparin Anti-Xa Level POC ABG pH POC ABG pCO2 POC ABG pO2 Sodium Potassium 3.5 L Chloride 108.8 H Carbon Dioxide BUN 23 H Creatinine 0.6 L Glucose 140 H POC Glucose 119 H Lactic Acid Calcium 8.1 L Phosphorus Magnesium AST Total Creatine Kinase CK-MB (CK-2) CK-MB (CK-2) Rel Index Troponin T C-Reactive Protein Albumin Triglycerides LDL Cholesterol Direct HDL Cholesterol Urine WBC (Auto) 12/08/18 12/08/18 12/08/18 13:19 18:03 18:26 WBC RBC Hgb Hct MCH RDW Plt Count Seg Neuts % (Manual) Lymphocytes % (Manual) Monocytes % (Manual) Eosinophils % (Manual) Basophils % (Manual) Nucleated RBC % Seg Neutrophils # Seg Neutrophils # Man Lymphocytes # (Manual) Monocytes # (Manual) Eosinophils # (Manual) Basophils # (Manual) PT INR Activated Clotting Time D-Dimer Heparin Anti-Xa Level POC ABG pH 7.466 H 7.467 H POC ABG pCO2 POC ABG pO2 71 L Sodium Potassium Chloride Carbon Dioxide BUN Creatinine Glucose POC Glucose 152 H Lactic Acid Calcium Phosphorus Magnesium AST Total Creatine Kinase CK-MB (CK-2) CK-MB (CK-2) Rel Index Troponin T C-Reactive Protein Albumin Triglycerides LDL Cholesterol Direct HDL Cholesterol Urine WBC (Auto) 12/08/18 12/09/18 12/09/18 23:21 04:45 04:45 WBC 27.6 H RBC 3.33 L Hgb 8.8 L Hct 27.4 L MCH 26 L RDW 15.9 H Plt Count Seg Neuts % (Manual) 74.0 H Lymphocytes % (Manual) Monocytes % (Manual) Eosinophils % (Manual) Basophils % (Manual) Nucleated RBC % 2.0 H Seg Neutrophils # Seg Neutrophils # Man 20.4 H Lymphocytes # (Manual) Monocytes # (Manual) Eosinophils # (Manual) 0.6 H Basophils # (Manual) PT INR Activated Clotting Time D-Dimer Heparin Anti-Xa Level POC ABG pH POC ABG pCO2 POC ABG pO2 Sodium 148 H Potassium Chloride 108.7 H Carbon Dioxide BUN 24 H Creatinine Glucose 141 H POC Glucose 130 H Lactic Acid Calcium Phosphorus Magnesium AST Total Creatine Kinase CK-MB (CK-2) CK-MB (CK-2) Rel Index Troponin T C-Reactive Protein Albumin Triglycerides LDL Cholesterol Direct HDL Cholesterol Urine WBC (Auto) 12/09/18 12/09/18 12/09/18 05:18 06:27 12:52 WBC RBC Hgb Hct MCH RDW Plt Count Seg Neuts % (Manual) Lymphocytes % (Manual) Monocytes % (Manual) Eosinophils % (Manual) Basophils % (Manual) Nucleated RBC % Seg Neutrophils # Seg Neutrophils # Man Lymphocytes # (Manual) Monocytes # (Manual) Eosinophils # (Manual) Basophils # (Manual) PT INR Activated Clotting Time D-Dimer Heparin Anti-Xa Level POC ABG pH 7.454 H POC ABG pCO2 POC ABG pO2 Sodium Potassium Chloride Carbon Dioxide BUN Creatinine Glucose POC Glucose 162 H 142 H Lactic Acid Calcium Phosphorus Magnesium AST Total Creatine Kinase CK-MB (CK-2) CK-MB (CK-2) Rel Index Troponin T C-Reactive Protein Albumin Triglycerides LDL Cholesterol Direct HDL Cholesterol Urine WBC (Auto) 12/09/18 12/09/18 12/10/18 18:27 23:54 04:09 WBC 33.7 H RBC 3.56 L Hgb 9.4 L Hct 29.1 L MCH 26 L RDW 15.8 H Plt Count Seg Neuts % (Manual) 78.0 H Lymphocytes % (Manual) Monocytes % (Manual) Eosinophils % (Manual) Basophils % (Manual) Nucleated RBC % Seg Neutrophils # Seg Neutrophils # Man 26.3 H Lymphocytes # (Manual) 6.1 H Monocytes # (Manual) Eosinophils # (Manual) Basophils # (Manual) PT INR Activated Clotting Time D-Dimer Heparin Anti-Xa Level POC ABG pH POC ABG pCO2 POC ABG pO2 Sodium Potassium Chloride Carbon Dioxide BUN Creatinine Glucose POC Glucose 117 H 108 H Lactic Acid Calcium Phosphorus Magnesium AST Total Creatine Kinase CK-MB (CK-2) CK-MB (CK-2) Rel Index Troponin T C-Reactive Protein Albumin Triglycerides LDL Cholesterol Direct HDL Cholesterol Urine WBC (Auto) 12/10/18 12/10/18 12/10/18 04:09 04:57 12:15 WBC RBC Hgb Hct MCH RDW Plt Count Seg Neuts % (Manual) Lymphocytes % (Manual) Monocytes % (Manual) Eosinophils % (Manual) Basophils % (Manual) Nucleated RBC % Seg Neutrophils # Seg Neutrophils # Man Lymphocytes # (Manual) Monocytes # (Manual) Eosinophils # (Manual) Basophils # (Manual) PT INR Activated Clotting Time D-Dimer Heparin Anti-Xa Level POC ABG pH POC ABG pCO2 POC ABG pO2 Sodium 149 H Potassium Chloride 110.5 H Carbon Dioxide 31 H BUN 28 H Creatinine Glucose 129 H POC Glucose 120 H 118 H Lactic Acid Calcium Phosphorus Magnesium AST Total Creatine Kinase CK-MB (CK-2) CK-MB (CK-2) Rel Index Troponin T C-Reactive Protein Albumin Triglycerides LDL Cholesterol Direct HDL Cholesterol Urine WBC (Auto) 12/11/18 12/11/18 12/11/18 00:03 04:45 04:45 WBC 30.8 H RBC 3.38 L Hgb 8.9 L Hct 27.9 L MCH 26 L RDW 15.9 H Plt Count 465 H Seg Neuts % (Manual) 86.0 H Lymphocytes % (Manual) 8.0 L Monocytes % (Manual) Eosinophils % (Manual) Basophils % (Manual) 2.0 H Nucleated RBC % Seg Neutrophils # Seg Neutrophils # Man 26.5 H Lymphocytes # (Manual) Monocytes # (Manual) Eosinophils # (Manual) 0.6 H Basophils # (Manual) 0.6 H PT INR Activated Clotting Time D-Dimer Heparin Anti-Xa Level POC ABG pH POC ABG pCO2 POC ABG pO2 Sodium 146 H Potassium Chloride 107.6 H Carbon Dioxide BUN 25 H Creatinine 0.6 L Glucose 116 H POC Glucose 111 H Lactic Acid Calcium Phosphorus Magnesium AST Total Creatine Kinase CK-MB (CK-2) CK-MB (CK-2) Rel Index Troponin T C-Reactive Protein Albumin Triglycerides LDL Cholesterol Direct HDL Cholesterol Urine WBC (Auto) 12/11/18 12/11/18 12/11/18 05:07 12:18 18:42 WBC RBC Hgb Hct MCH RDW Plt Count Seg Neuts % (Manual) Lymphocytes % (Manual) Monocytes % (Manual) Eosinophils % (Manual) Basophils % (Manual) Nucleated RBC % Seg Neutrophils # Seg Neutrophils # Man Lymphocytes # (Manual) Monocytes # (Manual) Eosinophils # (Manual) Basophils # (Manual) PT INR Activated Clotting Time D-Dimer Heparin Anti-Xa Level POC ABG pH POC ABG pCO2 POC ABG pO2 Sodium Potassium Chloride Carbon Dioxide BUN Creatinine Glucose POC Glucose 106 H 131 H 133 H Lactic Acid Calcium Phosphorus Magnesium AST Total Creatine Kinase CK-MB (CK-2) CK-MB (CK-2) Rel Index Troponin T C-Reactive Protein Albumin Triglycerides LDL Cholesterol Direct HDL Cholesterol Urine WBC (Auto) 12/12/18 12/12/18 12/12/18 12:52 12:52 12:52 WBC 30.2 H RBC Hgb 9.7 L Hct MCH 26 L RDW 16.2 H Plt Count 624 H Seg Neuts % (Manual) 82.0 H Lymphocytes % (Manual) 10.0 L Monocytes % (Manual) Eosinophils % (Manual) Basophils % (Manual) Nucleated RBC % Seg Neutrophils # Seg Neutrophils # Man 24.8 H Lymphocytes # (Manual) Monocytes # (Manual) 1.7 H Eosinophils # (Manual) 0.5 H Basophils # (Manual) PT 17.8 H INR 1.51 H Activated Clotting Time D-Dimer Heparin Anti-Xa Level POC ABG pH POC ABG pCO2 POC ABG pO2 Sodium Potassium Chloride Carbon Dioxide BUN 18 H Creatinine Glucose POC Glucose Lactic Acid Calcium Phosphorus Magnesium AST Total Creatine Kinase CK-MB (CK-2) CK-MB (CK-2) Rel Index Troponin T C-Reactive Protein Albumin Triglycerides LDL Cholesterol Direct HDL Cholesterol Urine WBC (Auto) 12/12/18 12/12/18 12/13/18 17:34 23:35 05:09 WBC 27.7 H RBC 3.34 L Hgb 8.9 L Hct 27.5 L MCH 27 L RDW 15.7 H Plt Count 602 H Seg Neuts % (Manual) 91.0 H Lymphocytes % (Manual) 6.0 L Monocytes % (Manual) Eosinophils % (Manual) Basophils % (Manual) Nucleated RBC % Seg Neutrophils # Seg Neutrophils # Man 25.2 H Lymphocytes # (Manual) Monocytes # (Manual) Eosinophils # (Manual) Basophils # (Manual) PT INR Activated Clotting Time D-Dimer Heparin Anti-Xa Level POC ABG pH POC ABG pCO2 POC ABG pO2 Sodium Potassium Chloride Carbon Dioxide BUN Creatinine Glucose POC Glucose 107 H 120 H Lactic Acid Calcium Phosphorus Magnesium AST Total Creatine Kinase CK-MB (CK-2) CK-MB (CK-2) Rel Index Troponin T C-Reactive Protein Albumin Triglycerides LDL Cholesterol Direct HDL Cholesterol Urine WBC (Auto) 12/13/18 12/13/18 12/13/18 05:09 08:00 11:59 WBC RBC Hgb Hct MCH RDW Plt Count Seg Neuts % (Manual) Lymphocytes % (Manual) Monocytes % (Manual) Eosinophils % (Manual) Basophils % (Manual) Nucleated RBC % Seg Neutrophils # Seg Neutrophils # Man Lymphocytes # (Manual) Monocytes # (Manual) Eosinophils # (Manual) Basophils # (Manual) PT INR Activated Clotting Time D-Dimer Heparin Anti-Xa Level POC ABG pH POC ABG pCO2 POC ABG pO2 Sodium Potassium Chloride 107.2 H Carbon Dioxide BUN Creatinine Glucose 115 H POC Glucose 114 H 108 H Lactic Acid Calcium 8.1 L Phosphorus Magnesium AST Total Creatine Kinase 148 H CK-MB (CK-2) 7.2 H CK-MB (CK-2) Rel Index 4.8 H Troponin T 1.250 H* C-Reactive Protein Albumin Triglycerides LDL Cholesterol Direct HDL Cholesterol Urine WBC (Auto) 12/13/18 12/14/18 12/14/18 22:07 05:04 05:04 WBC RBC Hgb 8.9 L Hct 27.4 L MCH RDW Plt Count 647 H Seg Neuts % (Manual) Lymphocytes % (Manual) Monocytes % (Manual) Eosinophils % (Manual) Basophils % (Manual) Nucleated RBC % Seg Neutrophils # Seg Neutrophils # Man Lymphocytes # (Manual) Monocytes # (Manual) Eosinophils # (Manual) Basophils # (Manual) PT 16.3 H INR 1.35 H Activated Clotting Time D-Dimer Heparin Anti-Xa Level POC ABG pH POC ABG pCO2 POC ABG pO2 Sodium Potassium Chloride Carbon Dioxide BUN Creatinine Glucose POC Glucose 118 H Lactic Acid Calcium Phosphorus Magnesium AST Total Creatine Kinase CK-MB (CK-2) CK-MB (CK-2) Rel Index Troponin T C-Reactive Protein Albumin Triglycerides LDL Cholesterol Direct HDL Cholesterol Urine WBC (Auto) 12/14/18 12/14/18 12/14/18 05:04 12:42 13:40 WBC 24.2 H RBC 3.42 L Hgb 9.2 L Hct 28.5 L MCH 27 L RDW 16.3 H Plt Count 730 H Seg Neuts % (Manual) 75.0 H Lymphocytes % (Manual) Monocytes % (Manual) Eosinophils % (Manual) Basophils % (Manual) Nucleated RBC % 2.0 H Seg Neutrophils # Seg Neutrophils # Man 18.2 H Lymphocytes # (Manual) Monocytes # (Manual) 1.0 H Eosinophils # (Manual) 0.7 H Basophils # (Manual) 0.2 H PT INR Activated Clotting Time 246 H D-Dimer Heparin Anti-Xa Level POC ABG pH POC ABG pCO2 POC ABG pO2 Sodium Potassium Chloride Carbon Dioxide BUN Creatinine Glucose 111 H POC Glucose Lactic Acid Calcium Phosphorus Magnesium AST Total Creatine Kinase CK-MB (CK-2) CK-MB (CK-2) Rel Index Troponin T C-Reactive Protein Albumin Triglycerides LDL Cholesterol Direct HDL Cholesterol Urine WBC (Auto) 12/14/18 12/15/18 12/15/18 16:52 05:11 05:11 WBC 23.1 H RBC 3.43 L Hgb 9.0 L Hct 28.6 L MCH 26 L RDW 16.1 H Plt Count 779 H Seg Neuts % (Manual) 76.0 H Lymphocytes % (Manual) Monocytes % (Manual) Eosinophils % (Manual) Basophils % (Manual) Nucleated RBC % Seg Neutrophils # Seg Neutrophils # Man 17.6 H Lymphocytes # (Manual) Monocytes # (Manual) 0.9 H Eosinophils # (Manual) 0.5 H Basophils # (Manual) 0.2 H PT INR Activated Clotting Time D-Dimer Heparin Anti-Xa Level POC ABG pH POC ABG pCO2 POC ABG pO2 Sodium Potassium Chloride Carbon Dioxide 21 L BUN Creatinine Glucose 111 H POC Glucose 107 H Lactic Acid Calcium 8.3 L Phosphorus Magnesium AST Total Creatine Kinase CK-MB (CK-2) 4.1 H CK-MB (CK-2) Rel Index Troponin T 0.919 H* D C-Reactive Protein Albumin Triglycerides LDL Cholesterol Direct HDL Cholesterol Urine WBC (Auto) 12/15/18 05:56 WBC RBC Hgb Hct MCH RDW Plt Count Seg Neuts % (Manual) Lymphocytes % (Manual) Monocytes % (Manual) Eosinophils % (Manual) Basophils % (Manual) Nucleated RBC % Seg Neutrophils # Seg Neutrophils # Man Lymphocytes # (Manual) Monocytes # (Manual) Eosinophils # (Manual) Basophils # (Manual) PT INR Activated Clotting Time D-Dimer Heparin Anti-Xa Level POC ABG pH POC ABG pCO2 POC ABG pO2 Sodium Potassium Chloride Carbon Dioxide BUN Creatinine Glucose POC Glucose 111 H Lactic Acid Calcium Phosphorus Magnesium AST Total Creatine Kinase CK-MB (CK-2) CK-MB (CK-2) Rel Index Troponin T C-Reactive Protein Albumin Triglycerides LDL Cholesterol Direct HDL Cholesterol Urine WBC (Auto) Allied health notes reviewed: nursing
== END 2018-12-15 15:32 | DRG 853 ==
LOC: ED 23:56 → CC1 12-02 06:07 → 4A 12-11 16:49
PROVIDERS: ADMIT Internal Medicine; ATTEND Internal Medicine
PROC: 5A1955Z Respiratory Ventilation, Greater than 96 Consecutive Hours (ICD-10-PCS; principal; 2018-12-02)
PROC: 0BH17EZ Insertion of Endotracheal Airway into Trachea, Via Natural or Artificial Opening (ICD-10-PCS; 2018-12-02)
PROC: 4A033R1 Measurement of Arterial Saturation, Peripheral, Percutaneous Approach (ICD-10-PCS; 2018-12-02)
PROC: 02HV33Z Insertion of Infusion Device into Superior Vena Cava, Percutaneous Approach (ICD-10-PCS; 2018-12-02)
PROC: B548ZZA Ultrasonography of Superior Vena Cava, Guidance (ICD-10-PCS; 2018-12-02)
PROC: 5A12012 Performance of Cardiac Output, Single, Manual (ICD-10-PCS; 2018-12-02)
PROC: 027135Z Dilation of Coronary Artery, Two Arteries with Two Drug-eluting Intraluminal Devices, Percutaneous Approach (ICD-10-PCS; 2018-12-12)
PROC: 4A023N7 Measurement of Cardiac Sampling and Pressure, Left Heart, Percutaneous Approach (ICD-10-PCS; 2018-12-12)
PROC: B2111ZZ Fluoroscopy of Multiple Coronary Arteries using Low Osmolar Contrast (ICD-10-PCS; 2018-12-12)
PROC: B2151ZZ Fluoroscopy of Left Heart using Low Osmolar Contrast (ICD-10-PCS; 2018-12-12)
PROC: 027034Z Dilation of Coronary Artery, One Artery with Drug-eluting Intraluminal Device, Percutaneous Approach (ICD-10-PCS; 2018-12-14)
PROC: 4A023N7 Measurement of Cardiac Sampling and Pressure, Left Heart, Percutaneous Approach (ICD-10-PCS; 2018-12-14)
PROC: B2101ZZ Fluoroscopy of Single Coronary Artery using Low Osmolar Contrast (ICD-10-PCS; 2018-12-14)
DX: A41.9 Sepsis, unspecified organism (principal); I46.9 Cardiac arrest, cause unspecified; J69.0 Pneumonitis due to inhalation of food and vomit; R65.21 Severe sepsis with septic shock; I49.01 Ventricular fibrillation; I21.9 Acute myocardial infarction, unspecified; J96.01 Acute respiratory failure with hypoxia; J96.02 Acute respiratory failure with hypercapnia; I50.23 Acute on chronic systolic (congestive) heart failure; N39.0 Urinary tract infection, site not specified; E87.2 Acidosis; I82.411 Acute embolism and thrombosis of right femoral vein; I48.0 Paroxysmal atrial fibrillation; E78.5 Hyperlipidemia, unspecified; E87.6 Hypokalemia; E66.01 Morbid (severe) obesity due to excess calories; F12.90 Cannabis use, unspecified, uncomplicated; I25.5 Ischemic cardiomyopathy; I25.10 Atherosclerotic heart disease of native coronary artery without angina pectoris; I11.0 Hypertensive heart disease with heart failure; E83.42 Hypomagnesemia; D64.9 Anemia, unspecified; E11.65 Type 2 diabetes mellitus with hyperglycemia; E11.51 Type 2 diabetes mellitus with diabetic peripheral angiopathy without gangrene; Z68.34 Body mass index [BMI] 34.0-34.9, adult; Z82.49 Family history of ischemic heart disease and other diseases of the circulatory system; Z79.899 Other long term (current) drug therapy; Z79.82 Long term (current) use of aspirin; Z87.891 Personal history of nicotine dependence; Z91.14 Patient's other noncompliance with medication regimen; Z79.4 Long term (current) use of insulin
CPT/HCPCS: 36415; 36600; 71045; 71275; 80048; 80053; 80061; 80307; 81001; 82140; 82550; 82553; 82803; 82962; 83036; 83735; 84100; 84439; 84443; 84484; 85007; 85014; 85018; 85025; 85027; 85049; 85347; 85379; 85520; 85610; 85730; 86140; 87040; 87070; 87086; 87205; 92928; 92929; 92950; 93005; 93010; 93306; 93458; 93970; 94002; 94003; 94640; 94644; 94760; 96365; 96375; G0378; A9270-GY; C1725; C1769; C1874; C1887; C1894; C9600; C9601; J0171; J0282; J0360; J0461; J0692; J1265; J1644; J1650; J1815; J1940; J1956; J2060; J2250; J2543; J2704; J3010; J3246; J3475; J3480; J7030; J7040; J7060; J7070; Q9967

== ENCOUNTER 2018-12-16 10:03 | Observation (INO) | payer OTHER ==
[2018-12-16] MEDS ORDERED: ASPIRIN PO ONE (10:12)
[2018-12-16] MEDS ORDERED: DUONEB *Not for PRN Use IH ONE (10:35)
[2018-12-16 10:37] LABS: Hematocrit 33.4 % (30.3-42.9); Hemoglobin 10.8 gm/dl (10.1-14.3); Mean Corpuscular HGB Conc 32 % (30-34); Mean Corpuscular Volume 84 fl (79-97); Platelet Count 949 K/mm3 (140-440); Red Blood Count 3.99 M/mm3 (3.65-5.03); Red Cell Distribution Width 16.1 % (13.2-15.2)
--- NOTE | 2018-12-16 10:40 | Emergency Department Report ---
HPI - General Chief Complaint: Dyspnea/Respdistress Time Seen by Provider: 12/16/18 10:23 - HPI HPI: 53-year-old female presents to the emergency department via EMS with complaint of acute shortness of breath. This patient has a significant recent cardiac history. She was admitted here on 12/02 after she went into V. fib and cardiac arrest in the emergency department. She was just discharged from this hospital from that stay yesterday on 12/15. During her admission, the patient was found to have multivessel coronary artery disease and had 4 stents placed over to cardiac catheterizations, new onset atrial fibrillation, new onset CHF with a EF of 30-35% and a right common femoral DVT. The patient is currently wearing a life vest monitor. Prior to that admission, the patient had a history of hypertension, diabetes, high cholesterol, former smoker, and is/was a marijuana smoker. The patient has been compliant with her medications since discharge. She denies any chest pain but says that she is having shortness of breath that worsens with exertion. She says that she will do a simple affect, such as going to the bathroom, and her breathing will not get back under control for close to one hour. She does admit to some lower extremity swelling. ED Past Medical Hx - Past Medical History Previous Medical History?: Yes Hx Hypertension: Yes Hx Congestive Heart Failure: (MIGUELINA) Hx Diabetes: (MIGUELINA) Hx Deep Vein Thrombosis: No Hx Asthma: (MIGUELINA) Hx COPD: (MIGUELINA) - Surgical History Past Surgical History?: Yes Hx Pacemaker: No Hx Internal Defibrillator: No Additional Surgical History: D&C - Social History Smoking Status: Former Smoker Substance Use Type: None - Medications Home Medications: Home Medications Medication Instructions Recorded Confirmed Last Taken Type Amiodarone [Cordarone 200 MG TAB] 200 mg PO QDAY #30 tablet 12/15/18 Unknown Rx Apixaban [Eliquis] 5 mg PO BID #60 tablet 12/15/18 Unknown Rx Aspirin EC 81 mg PO QDAY #30 tablet 12/15/18 Unknown Rx AtorvaSTATin [Lipitor] 40 mg PO QHS #30 tablet 12/15/18 Unknown Rx Cilostazol [Pletal] 75 mg PO BID #60 tablet 12/15/18 Unknown Rx Clopidogrel [Plavix] 75 mg PO QDAY #30 tablet 12/15/18 Unknown Rx Furosemide [Lasix TAB] 40 mg PO QDAY #30 tablet 12/15/18 Unknown Rx ISOSORBIDE MONOnitrate [Imdur ER] 30 mg PO QDAY #30 tablet 12/15/18 Unknown Rx Lisinopril [Zestril TAB] 20 mg PO QDAY #30 tablet 12/15/18 Unknown Rx Metoprolol [Lopressor TAB] 50 mg PO BID #60 tablet 12/15/18 Unknown Rx Pantoprazole [Protonix TAB] 40 mg PO QDAY #30 tablet 12/15/18 Unknown Rx Polyethylene Glycol 3350 [Miralax 17 gm FEEDTUBE QDAY PRN #30 12/15/18 Unknown Rx 3350] powd.pack ED Review of Systems ROS: Stated complaint: DIFFICULTY BREATHING Other details as noted in HPI Comment: All other systems reviewed and negative Constitutional: denies: chills, fever Eyes: denies: eye pain, vision change ENT: denies: ear pain, throat pain Respiratory: cough, shortness of breath Cardiovascular: edema. denies: chest pain Gastrointestinal: denies: abdominal pain, vomiting Genitourinary: denies: dysuria, discharge Musculoskeletal: denies: back pain, arthralgia Skin: denies: rash, lesions Neurological: denies: headache, weakness Physical Exam - Physical Exam Vital Signs: Vital Signs 12/16/18 10:09 Temperature 98.6 F Pulse Rate 82 Respiratory 20 Rate Blood Pressure 103/60 O2 Sat by Pulse 95 Oximetry Physical Exam: GENERAL: The patient is well-developed well-nourished. HENT: Normocephalic. Atraumatic. Patient has moist mucous membranes. EYES: Extraocular motions are intact. NECK: Supple. Trachea is midline. CHEST/LUNGS: Coarse breath sounds. A productive sounding cough heard during examination. Mild tachypnea but no accessory muscle use. There is no respiratory distress noted. HEART/CARDIOVASCULAR: Regular. There is no tachycardia. There is no murmur. ABDOMEN: Abdomen is soft, nontender. Patient has normal bowel sounds. There is no abdominal distention. SKIN: Skin is warm and dry. 1-2+ pitting edema to bilateral lower extremities up to the knees. NEURO: The patient is awake, alert, and oriented. The patient is cooperative. The patient has no focal neurologic deficits. The patient has normal speech. MUSCULOSKELETAL: There is no tenderness or deformity. There is no evidence of acute injury. ED Course Vital Signs 12/16/18 10:09 Temperature 98.6 F Pulse Rate 82 Respiratory 20 Rate Blood Pressure 103/60 O2 Sat by Pulse 95 Oximetry ED Medical Decision Making - Lab Data Result diagrams: 12/16/18 10:25 12/16/18 10:25 - EKG Data -: EKG Interpreted by [facility] EKG shows normal: sinus rhythm, axis (left axis deviation), intervals (prolonged QTc), QRS complexes (q waves to anterior leads), ST-T waves (non-specific ST-T waves) - EKG Data When compared to previous EKG there are: changes noted (previous EKG showed A- fib) Interpretation: other (sinus rhythm, left axis deviation, Q waves to the anterior leads, prolonged QTC, nonspecific ST-T waves) - Radiology Data Radiology results: report reviewed CHEST 1 VIEW INDICATION: Chest Pain. COMPARISON: One day prior. FINDINGS: Support devices: None. Heart: Stable. Lungs/Pleura: Predominantly interstitial/reticular pulmonary opacities are stable. No significant effusion, no pneumothorax. IMPRESSION: 1. No significant change. - Medical Decision Making This patient presents with shortness of breath that worsens with exertion. She has a significant recent cardiac history. Chest x-ray does not show any overt pneumonia or pleural effusions. She has a leukocytosis of about 23,000 that appears consistent with her recent visit. She has an elevated troponin but this is not surprising given that the patient had 2 heart catheterizations in the past 4 days. Patient has a elevated BNP level of greater than 2000. She was given some Lasix. She was given some breathing treatments. She has some tachypnea but does not appear in respiratory distress. Given the patient's exertional dyspnea and what sounds like difficulty completing her ADLs, as well as the abnormal labs, it will be my plan for the patient to be admitted. The patient will be presented to the admitting hospitalist, Dr Gil, for either admission or consultation and further disposition. - Differential Diagnosis CHF, PE, NM, Pneumonia, Sepsis Critical Care Time: No Critical care attestation.: If time is entered above; I have spent that time in minutes in the direct care of this critically ill patient, excluding procedure time. ED Disposition Clinical Impression: Acute on chronic diastolic CHF (congestive heart failure), History of coronary artery disease Dyspnea Qualifiers: Dyspnea type: shortness of breath Qualified Code(s): R06.02 - Shortness of breath; R06.00 - Dyspnea, unspecified; R06.01 - Orthopnea Disposition: DC-09 OP ADMIT IP TO THIS HOSP Is pt being admited?: Yes Condition: Fair Time of Disposition: 14:12
[2018-12-16 10:58] LABS: BUN/Creatinine Ratio 8; Blood Urea Nitrogen 7 mg/dL (7-17); Calcium 8.9 mg/dL (8.4-10.2); Hemolysis Index 17
--- NOTE | 2018-12-16 11:10 | XRay Report ---
CHEST 1 VIEW INDICATION: Chest Pain. COMPARISON: One day prior. FINDINGS: Support devices: None. Heart: Stable. Lungs/Pleura: Predominantly interstitial/reticular pulmonary opacities are stable. No significant eff usion, no pneumothorax. IMPRESSION: 1. No significant change. Signer Name: Jimmy Hernández MD Signed: 12/16/2018 11:05 AM Workstation Name: [id number]
[2018-12-16 11:36] LABS: INR 1.47 (0.87-1.13)
[2018-12-16 11:37] LABS: Partial Thromboplastin Time 39.3 Sec. (24.2-36.6)
[2018-12-16 11:43] LABS: Chol/HDL Ratio 2.76 %; HDL Cholesterol 34 mg/dL (40-59); LDL Cholesterol,Direct 42 mg/dL (50-130)
[2018-12-16] MEDS ORDERED: LASIX IV ONE (11:53)
[2018-12-16 12:33] LABS: Band Neutrophils # (Manual) 0.2 K/mm3; Basophils % (Manual) 0 % (0.0-1.8); Total Cells Counted 100
[2018-12-16 12:34] LABS: Anisocytosis 1+; Large Platelets Few; Ovalocytes Few; Platelet Estimate Consistent w Auto; Poikilocytosis Few
--- NOTE | 2018-12-16 12:50 | History and Physical Report ---
History of Present Illness History of present illness: 53 YO Female with HTN, Atrial Fib, Systolic CHF, 53-year-old female presents to the emergency department via EMS with complaint of acute shortness of breath. This patient has a significant recent cardiac history. She was admitted here on 12/02 after she went into V. fib and cardiac arrest in the emergency department. She was just discharged from this hospital from that stay yesterday on 12/15. During her admission, the patient was found to have multivessel coronary artery disease and had 4 stents placed over to cardiac catheterizations, new onset atrial fibrillation, new onset CHF with a EF of 30-35% and a right common femoral DVT. The patient is currently wearing a life vest monitor. Prior to that admission, the patient had a history of hypertension, diabetes, high cholesterol, former smoker, and is/was a marijuana smoker. The patient has been compliant with her medications since discharge. She denies any chest pain but says that she is having shortness of breath that worsens with exertion. She says that she will do a simple affect, such as going to the bathroom, and her breathing will not get back under control for close to one hour. She does admit to some lower extremity swelling. ED Past Medical Hx - Past Medical History Previous Medical History?: Yes Hx Hypertension: Yes Hx Congestive Heart Failure: (MIGUELINA) Hx Diabetes: (MIGUELINA) Hx Deep Vein Thrombosis: No Hx Asthma: (MIGUELINA) Hx COPD: (MIGUELINA) - Surgical History Past Surgical History?: Yes Hx Pacemaker: No Hx Internal Defibrillator: No Additional Surgical History: D&C - Social History Smoking Status: Former Smoker Substance Use Type: None - Medications Home Medications: Medications and Allergies Allergies Allergy/AdvReac Type Severity Reaction Status Date / Time No Known Allergies Allergy Unverified 05/06/15 16:09 Home Medications Medication Instructions Recorded Confirmed Last Taken Type Amiodarone [Cordarone 200 MG TAB] 200 mg PO QDAY #30 tablet 12/15/18 Unknown Rx Apixaban [Eliquis] 5 mg PO BID #60 tablet 12/15/18 Unknown Rx Aspirin EC 81 mg PO QDAY #30 tablet 12/15/18 Unknown Rx AtorvaSTATin [Lipitor] 40 mg PO QHS #30 tablet 12/15/18 Unknown Rx Cilostazol [Pletal] 75 mg PO BID #60 tablet 12/15/18 Unknown Rx Clopidogrel [Plavix] 75 mg PO QDAY #30 tablet 12/15/18 Unknown Rx Furosemide [Lasix TAB] 40 mg PO QDAY #30 tablet 12/15/18 Unknown Rx ISOSORBIDE MONOnitrate [Imdur ER] 30 mg PO QDAY #30 tablet 12/15/18 Unknown Rx Lisinopril [Zestril TAB] 20 mg PO QDAY #30 tablet 12/15/18 Unknown Rx Metoprolol [Lopressor TAB] 50 mg PO BID #60 tablet 12/15/18 Unknown Rx Pantoprazole [Protonix TAB] 40 mg PO QDAY #30 tablet 12/15/18 Unknown Rx Polyethylene Glycol 3350 [Miralax 17 gm FEEDTUBE QDAY PRN #30 12/15/18 Unknown Rx 3350] powd[employer]pack Exam - Constitutional Vitals: Temp Pulse Resp BP Pulse Ox 98.6 F 70 38 H 132/69 98 12/16/18 10:09 12/16/18 11:31 12/16/18 11:31 12/16/18 11:31 12/16/18 11:31 Results - Labs CBC & Chem 7: 12/16/18 10:25 12/16/18 10:25 Labs: Abnormal lab results 12/16/18 12/16/18 12/16/18 Range/Units 10:25 10:25 10:25 WBC 23.9 H (4.5-11.0) K/mm3 MCH 27 L (28-32) pg RDW 16.1 H (13.2-15.2) % Plt Count 949 H (140-440) K/mm3 Seg Neuts % (Manual) 81.0 H (40.0-70.0) % Lymphocytes % (Manual) 13.0 L (13.4-35.0) % Seg Neutrophils # Man 19.4 H (1.8-7.7) K/mm3 Monocytes # (Manual) 1.0 H (0.0-0.8) K/mm3 PT (12.2-14.9) Sec. INR (0.87-1.13) APTT (24.2-36.6) Sec. Carbon Dioxide 20 L (22-30) mmol/L Glucose 104 H (65-100) mg/dL Troponin T 0.772 H* (0.00-0.029) ng/mL NT-Pro-B Natriuret Pep 2908 H (0-900) pg/mL LDL Cholesterol Direct 42 L (50-130) mg/dL HDL Cholesterol 34 L (40-59) mg/dL 12/16/18 Range/Units 10:39 WBC (4.5-11.0) K/mm3 MCH (28-32) pg RDW (13.2-15.2) % Plt Count (140-440) K/mm3 Seg Neuts % (Manual) (40.0-70.0) % Lymphocytes % (Manual) (13.4-35.0) % Seg Neutrophils # Man (1.8-7.7) K/mm3 Monocytes # (Manual) (0.0-0.8) K/mm3 PT 17.5 H (12.2-14.9) Sec. INR 1.47 H (0.87-1.13) APTT 39.3 H (24.2-36.6) Sec. Carbon Dioxide (22-30) mmol/L Glucose (65-100) mg/dL Troponin T (0.00-0.029) ng/mL NT-Pro-B Natriuret Pep (0-900) pg/mL LDL Cholesterol Direct (50-130) mg/dL HDL Cholesterol (40-59) mg/dL
--- NOTE | 2018-12-16 15:57 | Cat Scan Report ---
CTA CHEST WITH IV CONTRAST INDICATION: dypsnea. TECHNIQUE: Axial CT images were obtained through the chest after injection of IV contrast. 3 plane MIP reconstru ctions were produced. All CT scans at this location are performed using CT dose reduction for ALARA b y means of automated exposure control. COMPARISON: CT 12/02/2018. FINDINGS: Pulmonary Arteries: There is acute lobar and segmental PTE within the bilateral lower lobes. I suspec t that there is PTE within segmental left upper lobe pulmonary arteries as well. The exam is limited due to respiratory motion. Thoracic Aorta: No acute abnormality. Heart: Normal. Coronary Arteries: No significant calcification. Lungs: Patchy predominantly peribronchovascular reticular and groundglass consolidative changes are s een within both lungs diffusely. There is relative sparing of the bases. Pleura: No pleural effusion. No pneumothorax. Lymph Nodes: No significant adenopathy. Additional Findings: None. Upper Abdomen: No acute findings. Skeletal Structures: No significant osseous abnormality. IMPRESSION: 1. Bilateral PTE, as above. No central, sagittal embolus is seen. 2. Extensive interstitial and groundglass opacities within both lungs are predominantly peribronchova scular in distribution with sparing of the bases. Pulmonary opacities have improved since the prior. These are nonspecific and could be inflammatory, infectious, or ischemic. COMMUNICATION: Time of Communication: 2:51 PM Licensed Practitioner Receiving Report: Dr. Gil Signer Name: Jimmy Hernández MD Signed: 12/16/2018 3:52 PM Workstation Name: [id number]
[2018-12-16] MEDS ORDERED: PROVENTIL IH PRN (20:15)
[2018-12-16] MEDS ORDERED: SODIUM CHLORIDE FLUSH SYRINGE 10 ML IV PRN (20:15)
[2018-12-16] MEDS ORDERED: MIRALAX 3350 FEEDTUBE PRN (20:16)
--- NOTE | 2018-12-16 20:18 | History and Physical Report ---
History of Present Illness Chief complaint: I cant breathe History of present illness: 53 YO Female with Systolic CHF, S/P Cardiac Arrest with Life Vest in place, HTN, HLD, PVD, CAD S/P Stent Placement, Atrial Fib, DVT on Therapeutic Anticoagulation presents to ED for evaluation. Pt was discharged from [facility] on the day prior to admission. Pt states that she refused supplemental oxygen at discharge because she "did not want it'. Pt states that she has experienced shortness of breath since her discharge with progressively worsening symptoms over the past 8 hours. Pt also reports decreased exercise tolerance since her previous admission. Pt denies fever, chills, CP, palpitations, NVD, Trauma, Skin rash, Productive cough, or recent ill contacts. Pt seen and evaluated in ED and found to have Acute Hypoxemic Respiratory Failure. Pt treated with supplemental oxygen. Pt admitted to telemetry. Prior admission on 12/02/18 reviewed. All listed medication reconciled at time of admission. 60 minutes additional time spent conducting advanced care planning. Pt counseled regarding her previous hospital admission, prognosis, physical limitations, changes in quality of life, dietary changes, and need for continuous supplemental oxygen. Pt and daughter acknowledge understanding of care plan, and agreement with plan. Pt reports that she will comply with home oxygen. Past History Past Medical History: atrial fib, CAD, DVT, heart failure, hypertension, hyperlipidemia, PVD Past Surgical History: Other (CArdiac stent placement. ) Social history: single. denies: smoking, alcohol abuse, prescription drug abuse Medications and Allergies Allergies Allergy/AdvReac Type Severity Reaction Status Date / Time No Known Allergies Allergy Unverified 05/06/15 16:09 Home Medications Medication Instructions Recorded Confirmed Last Taken Type Amiodarone [Cordarone 200 MG TAB] 200 mg PO QDAY #30 tablet 12/15/18 12/16/18 Unknown Rx Apixaban [Eliquis] 5 mg PO BID #60 tablet 12/15/18 12/16/18 Unknown Rx Aspirin EC 81 mg PO QDAY #30 tablet 12/15/18 12/16/18 Unknown Rx AtorvaSTATin [Lipitor] 40 mg PO QHS #30 tablet 12/15/18 12/16/18 Unknown Rx Cilostazol [Pletal] 75 mg PO BID #60 tablet 12/15/18 12/16/18 Unknown Rx Clopidogrel [Plavix] 75 mg PO QDAY #30 tablet 12/15/18 12/16/18 Unknown Rx Furosemide [Lasix TAB] 40 mg PO QDAY #30 tablet 12/15/18 12/16/18 Unknown Rx ISOSORBIDE MONOnitrate [Imdur ER] 30 mg PO QDAY #30 tablet 12/15/18 12/16/18 Unknown Rx Lisinopril [Zestril TAB] 20 mg PO QDAY #30 tablet 12/15/18 12/16/18 Unknown Rx Metoprolol [Lopressor TAB] 50 mg PO BID #60 tablet 12/15/18 12/16/18 Unknown Rx Pantoprazole [Protonix TAB] 40 mg PO QDAY #30 tablet 12/15/18 12/16/18 Unknown Rx Polyethylene Glycol 3350 [Miralax 17 gm FEEDTUBE QDAY PRN #30 12/15/18 12/16/18 Unknown Rx 3350] powd.pack Active Meds: Active Medications Albuterol (Proventil) 2.5 mg IH Q3HRT PRN PRN Reason: Shortness Of Breath Amiodarone HCl (Cordarone) 200 mg PO QDAY DC Apixaban (Eliquis) 5 mg PO BID [facility]; Protocol Aspirin (Halfprin Ec) 81 mg PO QDAY DC Atorvastatin Calcium (Lipitor) 40 mg PO QHS [facility] Sodium Chloride (Sodium Chloride Flush Syringe 10 Ml) 10 ml IV BID [facility] Sodium Chloride (Sodium Chloride Flush Syringe 10 Ml) 10 ml IV PRN PRN PRN Reason: LINE FLUSH Review of Systems Constitutional: weakness, no weight loss, no weight gain, no chills, no sweats, no night sweats Ears, nose, mouth and throat: no ear pain, no ear discharge, no tinnitis, no decreased hearing, no nose pain, no nasal congestion, no nasal discharge Breasts: no change in shape, no swelling, no mass Cardiovascular: orthopnea, shortness of breath, dyspnea on exertion, paroxysmal nocturnal dyspnea, leg edema, decreased exercise tolerance, no chest pain, no palpitations, no rapid/irregular heart beat, no syncope Respiratory: no cough, no cough with sputum, no excessive sputum, no hemoptysis Gastrointestinal: no abdominal pain, no nausea, no vomiting, no diarrhea, no constipation, no change in bowel habits Genitourinary Female: no pelvic pain, no flank pain, no dysuria, no incomplete emptying, no urge incontinence Rectal: no pain, no incontinence, no bleeding Musculoskeletal: no neck stiffness, no shooting arm pain, no arm numbness/tingling, no shooting leg pain, no leg numbness/tingling, no redness of joints Integumentary: no rash, no pruritis, no redness, no sores, no wounds Neurological: no transient paralysis, no paralysis, no weakness, no parathesias, no tingling Psychiatric: no anxiety, no memory loss, no sleep disturbances, no insomnia, no suicidal ideation Endocrine: no cold intolerance, no heat intolerance, no polyphagia, no excessive thirst, no polydipsia, no polyuria Hematologic/Lymphatic: no easy bruising, no easy bleeding, no lymphadenopathy, no lymphedema Allergic/Immunologic: no urticaria, no wheezing, no persistent infections, no anaphylaxis Exam - Constitutional Vitals: Temp Pulse Resp BP Pulse Ox 99.4 F 96 H 29 H 131/63 94 12/16/18 19:31 12/16/18 19:31 12/16/18 19:31 12/16/18 19:31 12/16/18 19:31 General appearance: Present: mild distress - EENT Eyes: Present: PERRL ENT: hearing intact, clear oral mucosa - Respiratory Respiratory effort: labored Respiratory: bilateral: diminished, rhonchi - Cardiovascular Heart Sounds: Present: S1 & S2. Absent: rub, click - Extremities Extremities: pulses symmetrical Extremity abnormal: edema Peripheral Pulses: within normal limits - Abdominal General gastrointestinal: Present: soft, non-tender, non-distended, normal bowel sounds Female genitourinary: Present: normal - Integumentary Integumentary: Present: clear, warm, dry - Musculoskeletal Musculoskeletal: generalized weakness - Psychiatric Psychiatric: appropriate mood/affect, intact judgment & insight - Neurologic Neurologic: CNII-XII intact, moves all extremities Results - Labs CBC & Chem 7: 12/16/18 10:25 12/17/18 04:41 Labs: Abnormal lab results 12/16/18 12/16/18 12/16/18 Range/Units 10:25 10:25 10:25 WBC 23.9 H (4.5-11.0) K/mm3 MCH 27 L (28-32) pg RDW 16.1 H (13.2-15.2) % Plt Count 949 H (140-440) K/mm3 Seg Neuts % (Manual) 81.0 H (40.0-70.0) % Lymphocytes % (Manual) 13.0 L (13.4-35.0) % Seg Neutrophils # Man 19.4 H (1.8-7.7) K/mm3 Monocytes # (Manual) 1.0 H (0.0-0.8) K/mm3 PT (12.2-14.9) Sec. INR (0.87-1.13) APTT (24.2-36.6) Sec. Carbon Dioxide 20 L (22-30) mmol/L Glucose 104 H (65-100) mg/dL Troponin T 0.772 H* (0.00-0.029) ng/mL NT-Pro-B Natriuret Pep 2908 H (0-900) pg/mL LDL Cholesterol Direct 42 L (50-130) mg/dL HDL Cholesterol 34 L (40-59) mg/dL 12/16/18 12/16/18 12/16/18 Range/Units 10:39 13:55 15:26 WBC (4.5-11.0) K/mm3 MCH (28-32) pg RDW (13.2-15.2) % Plt Count (140-440) K/mm3 Seg Neuts % (Manual) (40.0-70.0) % Lymphocytes % (Manual) (13.4-35.0) % Seg Neutrophils # Man (1.8-7.7) K/mm3 Monocytes # (Manual) (0.0-0.8) K/mm3 PT 17.5 H (12.2-14.9) Sec. INR 1.47 H (0.87-1.13) APTT 39.3 H (24.2-36.6) Sec. Carbon Dioxide (22-30) mmol/L Glucose (65-100) mg/dL Troponin T 0.732 H* 0.702 H* (0.00-0.029) ng/mL NT-Pro-B Natriuret Pep (0-900) pg/mL LDL Cholesterol Direct (50-130) mg/dL HDL Cholesterol (40-59) mg/dL Assessment and Plan - Patient Problems (1) Respiratory failure Current Visit: Yes Status: Acute Qualifiers: Chronicity: acute Respiratory failure complication: hypoxia Qualified Code(s): J96.01 - Acute respiratory failure with hypoxia Plan to address problem: Supplemental oxygen, nebulizer therapy, Case management consulted to arrange home oxygen, NIPPV as clinically indicated. (2) Hx of venous thromboembolic disease Current Visit: Yes Status: Acute Plan to address problem: Continue therapeutic anticoagulation, supportive care. (3) HTN (hypertension) Current Visit: Yes Status: Acute Qualifiers: Hypertension type: essential hypertension Qualified Code(s): I10 - Essential (primary) hypertension Plan to address problem: Monitor bp q shift, continue medical management (4) HLD (hyperlipidemia) Current Visit: Yes Status: Acute Qualifiers: Hyperlipidemia type: mixed hyperlipidemia Qualified Code(s): E78.2 - Mixed hyperlipidemia Plan to address problem: Statin therapy, low cholesterol diet, (5) Atrial fibrillation Current Visit: No Status: Acute (6) Cardiopulmonary arrest Current Visit: No Status: Resolved Plan to address problem: Life Vest in Place, telemetry monitoring. (7) CHF (congestive heart failure) Current Visit: Yes Status: Chronic Qualifiers: Heart failure type: systolic Plan to address problem: Compensated at rebekah e of admission: Continue strict I/O, daily weight, monitor uop q shift, afterload reduction, supplemental oxygen, pulse oximetry (8) Advance care planning Current Visit: Yes Status: Acute Plan to address problem: 60 minutes dedicated to discussion of advanced care planning/Discharge planning/medication compliance/ Disease prognosis, and quality of life (9) DVT prophylaxis Current Visit: Yes Status: Acute Plan to address problem: SCD to BLE, Therapeutic anticoagulation
[2018-12-16] MEDS ORDERED: PLETAL PO SCH (22:00)
[2018-12-16] MEDS: ELIQUIS PO SCH (23:04)
[2018-12-16] MEDS: SODIUM CHLORIDE FLUSH SYRINGE 10 ML IV SCH (23:04)
[2018-12-16] MEDS: LOPRESSOR PO SCH (23:04)
[2018-12-17 05:52] LABS: BUN/Creatinine Ratio 10; Blood Urea Nitrogen 8 mg/dL (7-17); Calcium 8.4 mg/dL (8.4-10.2); Hemolysis Index 0
[2018-12-17 08:36] VITALS: BP 139/68
--- NOTE | 2018-12-17 09:15 | Discharge Summary ---
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 fib arrest, required cardioversion . Life vest on place /Septic shock/severe sepsis -Probably secondary to bilateral pneumonia, likely due to aspiration has completed course of abx since 12/11 /Systolic heart failure with EF of 30-35% -On BB and oral Lasix. Not on ACEI due to labile BP /h/o atrial fibrillation. on rate control meds and therapeutic AC with eliquis /h/o right common femoral vein DVT -On therapeutic AC /H/o hypertension. -Blood pressure labile -home antihypertensives on hold /Hyperlipidemia. -Continue statin. /Peripheral vascular disease -Cont cilostazol /Normocytic anemia, likely chronic -H&H stable, /Marijuana use -Cessation recommended /Medication non-compliance -Patient counseled /Obesity with BMI of 33.4 -Lifestyle modification recommended Disposition: [id number]/TX-06 HOME UNDER HOME [facility] Time spent for discharge: 34 minutes Exam - Constitutional Vitals: Temp Pulse Resp BP Pulse Ox 99.1 F 76 18 139/68 91 12/17/18 07:48 12/17/18 07:48 12/17/18 07:48 12/17/18 07:48 12/17/18 07:48 Plan Diet: low fat, low salt Special Instructions: restrict fluid intake to (1.2 L per day), record daily weights, record daily BP diary, home oxygen via (2L N/c) Follow up with: DIMITRI LOTT MD [Primary Care Provider] - 3-5 Days
[2018-12-17] MEDS ORDERED: LASIX PO SCH (10:00)
[2018-12-17] MEDS: ELIQUIS PO SCH (10:00)
[2018-12-17] MEDS ORDERED: CORDARONE PO SCH (10:00)
[2018-12-17] MEDS ORDERED: PROTONIX PO SCH (10:00)
[2018-12-17] MEDS ORDERED: IMDUR PO SCH (10:00)
[2018-12-17] MEDS ORDERED: HALFPRIN EC PO SCH (10:00)
[2018-12-17] MEDS ORDERED: ZESTRIL PO SCH (10:00)
[2018-12-17] MEDS ORDERED: PLAVIX PO SCH (10:00)
[2018-12-17] MEDS: LOPRESSOR PO SCH (10:01)
[2018-12-17] MEDS: SODIUM CHLORIDE FLUSH SYRINGE 10 ML IV SCH (10:03)
[2018-12-17] MEDS ORDERED: PLETAL PO SCH (11:00)
== END 2018-12-17 16:37 | disposition home health service (06) ==
LOC: ED 10:03 → 4A 20:15
PROVIDERS: ADMIT Internal Medicine; ATTEND Internal Medicine
DX: J96.01 Acute respiratory failure with hypoxia (principal); E78.2 Mixed hyperlipidemia; I48.91 Unspecified atrial fibrillation; I11.0 Hypertensive heart disease with heart failure; I50.9 Heart failure, unspecified; I25.10 Atherosclerotic heart disease of native coronary artery without angina pectoris; I73.9 Peripheral vascular disease, unspecified; Z86.718 Personal history of other venous thrombosis and embolism
CPT/HCPCS: 36415; 47537; 71045; 71275; 80048; 80061; 83880; 84484; 85007; 85025; 85610; 85730; 93005; 93010; 94760; 99284; A9270; G0378; J1940; Q9967

== ENCOUNTER 2019-06-13 16:55 | Emergency (ER) | payer OTHER ==
[2019-06-13 18:03] VITALS: BP 201/90
== END 2019-06-13 19:15 | disposition left against medical advice (07) ==
LOC: ED 16:55
DX: Z53.21 Procedure and treatment not carried out due to patient leaving prior to being seen by health care provider (principal)

== ENCOUNTER 2019-07-02 16:52 | Observation (INO) | payer OTHER ==
--- NOTE | 2019-07-02 18:32 | Event Note ---
ED Screening Note ED Screening Note: BP was 223/99 at home per pt states she was just checking her blood pressure routinely at that time states that she had a CA 6 months ago takes lisinopril, lasix, metoprolol, eliquis, plavix, aspirin states she had a mild headache no n/v/d no CP mild SOB with exertion no leg swelling no allergies to meds This initial assessment/diagnostic orders/clinical plan/treatment(s) is/are subject to change based on patients health status, clinical progression and re- assessment by fellow clinical providers in the ED. Further treatment and workup at subsequent clinical providers discretion. Patient/guardian urged not to elope from the ED as their condition may be serious if not clinically assessed and managed. Initial orders include: labs/xr/ekg
--- NOTE | 2019-07-02 19:28 | XRay Report ---
CHEST 2 VIEWS INDICATION / CLINICAL INFORMATION: SOB/HTN urgency. COMPARISON: None available. FINDINGS: SUPPORT DEVICES: None. HEART / MEDIASTINUM: No significant abnormality. LUNGS / PLEURA: No significant pulmonary or pleural abnormality. No pneumothorax. ADDITIONAL FINDINGS: No significant additional findings. IMPRESSION: 1. No acute findings. Signer Name: Raymond Hopkins MD Signed: 07/02/2019 7:23 PM Workstation Name: [id number]
[2019-07-02 19:31] LABS: Basophils # (Auto) 0.1 K/mm3 (0.0-0.1); Basophils % (Auto) 0.7 % (0.0-1.8); Eosinophils # (Auto) 0.4 K/mm3 (0.0-0.4); Eosinophils % (Auto) 2.9 % (0.0-4.3); Hematocrit 46.3 % (30.3-42.9); Hemoglobin 14.6 gm/dl (10.1-14.3); Lymphocytes # (Auto) 3.4 K/mm3 (1.2-5.4); Lymphocytes % (Auto) 27.5 % (13.4-35.0); Mean Corpuscular HGB Conc 32 % (30-34); Mean Corpuscular Volume 82 fl (79-97); Monocytes # (Auto) 0.7 K/mm3 (0.0-0.8); Monocytes % (Auto) 5.6 % (0.0-7.3); Platelet Count 334 K/mm3 (140-440); Red Blood Count 5.68 M/mm3 (3.65-5.03); Red Cell Distribution Width 18.2 % (13.2-15.2)
[2019-07-02 19:35] LABS: INR 1.23 (0.87-1.13)
[2019-07-02 19:36] LABS: Partial Thromboplastin Time 29.8 Sec. (24.2-36.6)
[2019-07-02 19:47] LABS: Alanine Aminotransferase 15 units/L (7-56); Albumin 3.9 g/dL (3.9-5); BUN/Creatinine Ratio 9; Blood Urea Nitrogen 10 mg/dL (7-17); Calcium 9.1 mg/dL (8.4-10.2); Hemolysis Index 24
[2019-07-02 20:29] LABS: Bilirubin,Urine NEG (Negative); Blood,Urine NEG (Negative); Color,Urine Yellow (Yellow); Mucus,Urine FEW /HPF; Protein,Urine <15 mg/dL mg/dL (Negative); Urobilinogen,Urine < 2.0 mg/dL (<2.0)
[2019-07-02] MEDS ORDERED: hydrALAZINE 20 MG/1 ML INJ ONE (20:41)
[2019-07-02] MEDS ORDERED: hydrALAZINE 20 MG/1 ML INJ IV ONE (20:41)
--- NOTE | 2019-07-02 20:57 | Emergency Department Report ---
ED General Adult HPI - General Chief complaint: Headache Stated complaint: BLOOD PRESSURE Time Seen by Provider: 07/02/19 18:31 Source: patient Mode of arrival: Ambulatory Limitations: No Limitations - History of Present Illness Initial comments: Patient is 54 years old female with history of cardiac arrest in November 2018, coronary artery disease with multiple stents, hypertension and hyperlipidemia. Patient presented to the ER stating that her blood pressure was really high at home. Patient is complaining of lightheadedness and mild headache but denies any weakness numbness or tingling sensation. Patient also denied any chest pain or shortness of breath. Patient found to have a blood pressure of 227/71. Patient also found to be in a significant sinus bradycardia with a heart rate going down to 32. Patient is taking Lopressor 50 mg twice a day. - Related Data Home Medications Medication Instructions Recorded Confirmed Last Taken Apixaban [Eliquis] 2.5 mg PO BID 07/02/19 07/02/19 Unknown Previous Rx's Medication Instructions Recorded Last Taken Type Amiodarone [Cordarone 200 MG TAB] 200 mg PO QDAY #30 tablet 12/15/18 Unknown Rx Aspirin EC [Halfprin EC] 81 mg PO QDAY #30 tablet 12/15/18 Unknown Rx AtorvaSTATin [Lipitor] 40 mg PO QHS #30 tablet 12/15/18 Unknown Rx Clopidogrel [Plavix] 75 mg PO QDAY #30 tablet 12/15/18 Unknown Rx Furosemide [Lasix TAB] 40 mg PO QDAY #30 tablet 12/15/18 Unknown Rx ISOSORBIDE MONOnitrate [Imdur ER] 30 mg PO QDAY #30 tablet 12/15/18 Unknown Rx Metoprolol [Lopressor TAB] 50 mg PO BID #60 tablet 12/15/18 Unknown Rx Pantoprazole [Protonix TAB] 40 mg PO QDAY #30 tablet 12/15/18 Unknown Rx cilostazoL [Pletal] 75 mg PO BID #60 tablet 12/15/18 Unknown Rx lisinopriL [Zestril TAB] 20 mg PO QDAY #30 tablet 12/15/18 Unknown Rx Allergies Allergy/AdvReac Type Severity Reaction Status Date / Time No Known Allergies Allergy Unverified 05/06/15 16:09 ED Review of Systems ROS: Stated complaint: BLOOD PRESSURE Other details as noted in HPI Comment: All other systems reviewed and negative Constitutional: denies: chills, diaphoresis Respiratory: denies: cough, shortness of breath, SOB with exertion Cardiovascular: denies: chest pain Gastrointestinal: denies: abdominal pain, nausea, vomiting Musculoskeletal: denies: back pain Neurological: headache. denies: weakness, numbness, paresthesias, confusion, abnormal gait ED Past Medical Hx - Past Medical History Previous Medical History?: Yes Hx Hypertension: Yes Hx Congestive Heart Failure: (MIGUELINA) Hx Diabetes: (MIGUELINA) Hx Deep Vein Thrombosis: No Hx Asthma: (MIGUELINA) Hx COPD: (MIGUELINA) - Surgical History Past Surgical History?: Yes Hx Pacemaker: No Hx Internal Defibrillator: No Additional Surgical History: D&C - Social History Smoking Status: Never Smoker Substance Use Type: None - Medications Home Medications: Home Medications Medication Instructions Recorded Confirmed Last Taken Type Amiodarone [Cordarone 200 MG TAB] 200 mg PO QDAY #30 tablet 12/15/18 07/02/19 Unknown Rx Aspirin EC [Halfprin EC] 81 mg PO QDAY #30 tablet 12/15/18 07/02/19 Unknown Rx AtorvaSTATin [Lipitor] 40 mg PO QHS #30 tablet 12/15/18 07/02/19 Unknown Rx Clopidogrel [Plavix] 75 mg PO QDAY #30 tablet 12/15/18 07/02/19 Unknown Rx Furosemide [Lasix TAB] 40 mg PO QDAY #30 tablet 12/15/18 07/02/19 Unknown Rx ISOSORBIDE MONOnitrate [Imdur ER] 30 mg PO QDAY #30 tablet 12/15/18 07/02/19 Unknown Rx Metoprolol [Lopressor TAB] 50 mg PO BID #60 tablet 12/15/18 07/02/19 Unknown Rx Pantoprazole [Protonix TAB] 40 mg PO QDAY #30 tablet 12/15/18 07/02/19 Unknown Rx cilostazoL [Pletal] 75 mg PO BID #60 tablet 12/15/18 07/02/19 Unknown Rx lisinopriL [Zestril TAB] 20 mg PO QDAY #30 tablet 12/15/18 07/02/19 Unknown Rx Apixaban [Eliquis] 2.5 mg PO BID 07/02/19 07/02/19 Unknown History ED Physical Exam - General Limitations: No Limitations General appearance: alert, in no apparent distress - Head Head exam: Present: atraumatic, normocephalic, normal inspection - Eye Eye exam: Present: normal appearance - ENT ENT exam: Present: normal exam, normal orophraynx, mucous membranes moist - Neck Neck exam: Present: normal inspection, full ROM. Absent: tenderness, meningismus, lymphadenopathy, thyromegaly - Respiratory Respiratory exam: Present: normal lung sounds bilaterally - Cardiovascular Cardiovascular Exam: Present: bradycardia - GI/Abdominal GI/Abdominal exam: Present: soft, normal bowel sounds. Absent: distended, tenderness, guarding, rebound, rigid, organomegaly, mass, bruit, pulsatile mass, hernia - Extremities Exam Extremities exam: Present: normal inspection, full ROM, normal capillary refill. Absent: pedal edema, calf tenderness - Back Exam Back exam: Present: normal inspection, full ROM. Absent: CVA tenderness (R), CVA tenderness (L) - Neurological Exam Neurological exam: Present: alert, oriented X3, CN II-XII intact, normal gait, reflexes normal - Psychiatric Psychiatric exam: Present: normal mood - Skin Skin exam: Present: warm, intact, normal color ED Course Vital Signs 07/02/19 07/02/19 07/02/19 18:33 18:36 20:18 Temperature 98.7 F Pulse Rate 44 L Respiratory 20 Rate Blood Pressure 181/112 Blood Pressure 227/71 [Right] O2 Sat by Pulse 98 99 Oximetry 07/02/19 07/02/19 07/02/19 20:30 20:42 20:45 Temperature Pulse Rate 34 L 35 L 38 L Respiratory 14 14 Rate Blood Pressure 197/80 197/80 203/65 Blood Pressure [Right] O2 Sat by Pulse 100 100 Oximetry 07/02/19 07/02/19 07/02/19 21:00 21:16 21:30 Temperature Pulse Rate 43 L 49 L 46 L Respiratory 10 L 10 L 20 Rate Blood Pressure 197/80 183/106 183/106 Blood Pressure [Right] O2 Sat by Pulse 100 98 99 Oximetry 07/02/19 07/02/19 07/02/19 21:46 22:00 22:16 Temperature Pulse Rate 42 L 40 L 40 L Respiratory 12 21 12 Rate Blood Pressure 198/80 198/69 198/69 Blood Pressure [Right] O2 Sat by Pulse 97 100 99 Oximetry 07/02/19 07/02/19 07/02/19 22:30 22:46 23:00 Temperature Pulse Rate 40 L 41 L 42 L Respiratory 14 14 17 Rate Blood Pressure 169/85 189/74 194/71 Blood Pressure [Right] O2 Sat by Pulse 98 98 98 Oximetry 07/02/19 07/02/19 07/02/19 23:16 23:30 23:46 Temperature Pulse Rate 46 L 37 L 38 L Respiratory 16 13 11 L Rate Blood Pressure 190/78 198/83 207/80 Blood Pressure [Right] O2 Sat by Pulse 98 98 100 Oximetry 07/03/19 07/03/19 07/03/19 00:00 00:04 00:10 Temperature Pulse Rate 40 L 48 L 58 L Respiratory 17 16 22 Rate Blood Pressure 207/80 206/73 206/73 Blood Pressure [Right] O2 Sat by Pulse 100 97 100 Oximetry 07/03/19 07/03/19 07/03/19 00:20 00:22 00:30 Temperature Pulse Rate 47 L 40 L 41 L Respiratory 15 27 H Rate Blood Pressure 203/68 207/80 203/68 Blood Pressure [Right] O2 Sat by Pulse 98 98 Oximetry 07/03/19 07/03/19 07/03/19 00:40 00:51 01:01 Temperature 97.7 F Pulse Rate 49 L 40 L 45 L Respiratory 18 18 Rate Blood Pressure 183/69 191/82 Blood Pressure [Right] O2 Sat by Pulse 99 95 Oximetry ED Medical Decision Making - Lab Data Result diagrams: 07/03/19 07:06 07/03/19 07:06 - EKG Data EKG shows normal: sinus rhythm Rate: bradycardia - EKG Data Interpretation: no acute changes - Radiology Data Radiology results: report reviewed - Medical Decision Making Patient is 54 years old female with history of cardiac arrest in November 2018, coronary artery disease with multiple stents, hypertension and hyperlipidemia. Patient presented to the ER stating that her blood pressure was really high at home. Patient is complaining of lightheadedness and mild headache but denies any weakness numbness or tingling sensation. Patient also denied any chest pain or shortness of breath. Patient found to have a blood pressure of 227/71. Patient also found to be in a significant sinus bradycardia with a heart rate going down to 32. Patient is taking Lopressor 50 mg twice a day. EKG shows sinus bradycardia with a heart rate of 37. Labs reviewed and is unremarkable including a negative troponin. Chest x-ray is unremarkable. Patient given hydralazine 10 mg IV. I discussed the patient with Dr. Garza, rn chemical dependency, he advised to hold metoprolol and admit the patient for observation and blood pressure management. I discussed the patient with Dr. Maribeth Mojica, she agreed to admit the patient to medical service for further management. Critical Care Time: Yes Critical care time in (mins) excluding proc time.: 30 Critical care attestation.: If time is entered above; I have spent that time in minutes in the direct care of this critically ill patient, excluding procedure time. ED Disposition Clinical Impression: Hypertensive emergency, Symptomatic bradycardia Disposition: DC-09 OP ADMIT IP TO THIS HOSP Is pt being admited?: Yes Condition: Stable
--- NOTE | 2019-07-02 22:35 | History and Physical Report ---
History of Present Illness History of present illness: 54 -year-old woman with a history of hypertension, hyperlidemia, PVD, CHF, A. fib, DVT, coronary artery disease comes to the emergency room with complaints of not feeling well, she had a headache. She stated she woke up this morning her blood pressure was 223/99, she felt fine and went to work. She got upset at work and then when she was leaving work, she developed a very slight headache, she came to the emergency room for evaluation. Blood pressure was noted to be high, she was given IV hydralazine with good results, she was found to have bradycardia, heart rate as low as 32. Patient states that she has had bradycardia for several months, she is asymptomatic. Patient is being admitted for bradycardia Review of systems Constitutional: no weight loss Ears, eyes, nose, mouth and throat: no nasal congestion, no nasal discharge, no sinus pressure, no vision change, no red eye. Neck: No neck pain or rigidity. Cardiovascular: no palpitations Respiratory: no cough, shortness of breath Gastrointestinal: no hematochezia, abdominal pain Genitourinary : no frequency , no hematuria Musculoskeletal: no joint swelling or muscle ache Integumentary: no rash, no pruritis Neurological: no parathesias, focal weakness Endocrine: no cold or heat intolerance, no polyuria or polydipsia Hematologic/Lymphatic: no easy bruising, no easy bleeding, no gland swelling Allergic/Immunologic: no urticaria, no angioedema. PAST MEDICAL HISTORY:hypertension, hyperlipidemia, PVD, CHF, A. fib, DVT, coronary artery disease PAST SURGICAL HISTORY: None SOCIAL HISTORY: Denies alcohol, tobacco or drug use FAMILY HISTORY: Hypertension Medications and Allergies Allergies Allergy/AdvReac Type Severity Reaction Status Date / Time No Known Allergies Allergy Unverified 05/06/15 16:09 Home Medications Medication Instructions Recorded Confirmed Last Taken Type Amiodarone [Cordarone 200 MG TAB] 200 mg PO QDAY #30 tablet 12/15/18 07/02/19 Unknown Rx Aspirin EC [Halfprin EC] 81 mg PO QDAY #30 tablet 12/15/18 07/02/19 Unknown Rx AtorvaSTATin [Lipitor] 40 mg PO QHS #30 tablet 12/15/18 07/02/19 Unknown Rx Clopidogrel [Plavix] 75 mg PO QDAY #30 tablet 12/15/18 07/02/19 Unknown Rx Furosemide [Lasix TAB] 40 mg PO QDAY #30 tablet 12/15/18 07/02/19 Unknown Rx ISOSORBIDE MONOnitrate [Imdur ER] 30 mg PO QDAY #30 tablet 12/15/18 07/02/19 Unknown Rx Metoprolol [Lopressor TAB] 50 mg PO BID #60 tablet 12/15/18 07/02/19 Unknown Rx Pantoprazole [Protonix TAB] 40 mg PO QDAY #30 tablet 12/15/18 07/02/19 Unknown Rx cilostazoL [Pletal] 75 mg PO BID #60 tablet 12/15/18 07/02/19 Unknown Rx lisinopriL [Zestril TAB] 20 mg PO QDAY #30 tablet 12/15/18 07/02/19 Unknown Rx Apixaban [Eliquis] 2.5 mg PO BID 07/02/19 07/02/19 Unknown History Active Meds: Active Medications Amlodipine Besylate (Amlodipine) 10 mg PO ONCE ONE Stop: 07/02/19 22:36 Enoxaparin Sodium (Enoxaparin) 30 mg SUB-Q QDAY DC Exam - Physical Exam Narrative exam: Gen. appearance: Patient lying in bed, no apparent distress HEENT: Normocephalic, atraumatic, pupils equally round and reactive to light, extraocular movement intact, and no sclericterus,. No JVD or thyromegaly or nodule,neck supple, no carotid bruit ,mucous membranes moist, no exudate or erythema Heart: S1, S2, regular rate and rhythm Lungs: Clear to auscultation bilaterally, breathing comfortable Abdomen: Positive bowel sounds, nontender, nondistended, no organomegaly Extremity: No edema, cyanosis, clubbing Skin: No rash, nodules, warm, dry Neuro: Oriented 3, cranial nerves II-12 intact, speech is fluent, motor and sensory intact - Constitutional Vitals: Temp Pulse Resp BP Pulse Ox 98.7 F 40 L 14 169/85 98 07/02/19 18:33 07/02/19 22:30 07/02/19 22:30 07/02/19 22:30 07/02/19 22:30 Results - Labs CBC & Chem 7: 07/02/19 18:53 07/02/19 18:53 Labs: Abnormal lab results 07/02/19 07/02/19 07/02/19 Range/Units 18:53 18:53 18:53 WBC 12.4 H (4.5-11.0) K/mm3 RBC 5.68 H (3.65-5.03) M/mm3 Hgb 14.6 H (10.1-14.3) gm/dl Hct 46.3 H (30.3-42.9) % MCH 26 L (28-32) pg RDW 18.2 H (13.2-15.2) % Seg Neutrophils # 7.8 H (1.8-7.7) K/mm3 PT 15.7 H (12.2-14.9) Sec. INR 1.23 H (0.87-1.13) Potassium 3.4 L (3.6-5.0) mmol/L - Imaging and Cardiology EKG: image reviewed Chest x-ray: pending Assessment and Plan Assessment Bradycardia secondary to amiodarone, Lopressor Hold amiodarone, Lopressor, patient is asymptomatic Consult cardiology Hypokalemia Replete potassium Headache, hypertension uncontrolled Check CT head Stress-induced leukocytosis, continue to monitor DVT, A. fib Continue Eliquis, patient in normal sinus rhythm CHF, stable Continue Lasix and other cardiac medications Hyperlipidemia, continue statin Hypertension, uncontrolled IV hydralazine as needed for blood pressure control, give a dose of Norvasc PVD Continue outpatient medications DVT prophylaxis with Eliquis
[2019-07-02] MEDS ORDERED: amLODIPine 10 MG TAB PO ONE (23:00)
[2019-07-02] MEDS ORDERED: ONDANSETRON 4 MG/2 ML INJ IV PRN (23:43)
[2019-07-02] MEDS ORDERED: oxyCODONE /ACETAMINOPHEN 5-325MG TAB PO PRN (23:43)
[2019-07-03] MEDS ORDERED: hydrALAZINE 20 MG/1 ML INJ IV ONE ×2 (00:01→01:45)
[2019-07-03] MEDS ORDERED: amLODIPine 5 MG TAB ONE (00:17)
[2019-07-03] MEDS ORDERED: hydrALAZINE 20 MG/1 ML INJ ONE (00:17)
[2019-07-03] MEDS ORDERED: hydrALAZINE 20 MG/1 ML INJ IV PRN (00:32)
[2019-07-03] MEDS: ACETAMINOPHEN 325 MG TAB PO PRN ×2 (01:12→09:13)
[2019-07-03] MEDS ORDERED: POTASSIUM CHLORIDE ER 20 MEQ TAB PO ONE ×2 (01:30→02:16)
[2019-07-03 07:29] LABS: Basophils # (Auto) 0.1 K/mm3 (0.0-0.1); Eosinophils # (Auto) 0.4 K/mm3 (0.0-0.4); Eosinophils % (Auto) 3.1 % (0.0-4.3); Hematocrit 42.2 % (30.3-42.9); Hemoglobin 13.5 gm/dl (10.1-14.3); Lymphocytes # (Auto) 3.2 K/mm3 (1.2-5.4); Lymphocytes % (Auto) 25.3 % (13.4-35.0); Mean Corpuscular HGB Conc 32 % (30-34); Mean Corpuscular Volume 80 fl (79-97); Monocytes # (Auto) 0.7 K/mm3 (0.0-0.8); Monocytes % (Auto) 5.7 % (0.0-7.3); Platelet Count 315 K/mm3 (140-440); Red Blood Count 5.25 M/mm3 (3.65-5.03); Red Cell Distribution Width 18.3 % (13.2-15.2)
[2019-07-03 07:49] LABS: BUN/Creatinine Ratio 13; Blood Urea Nitrogen 13 mg/dL (7-17); Calcium 8.9 mg/dL (8.4-10.2); Hemolysis Index 3
[2019-07-03] MEDS: CLOPIDOGREL 75 MG TAB PO SCH (09:13)
[2019-07-03] MEDS: PANTOPRAZOLE 40 MG TAB PO SCH (09:13)
[2019-07-03] MEDS: APIXABAN 5 MG TAB PO SCH ×2 (09:13→21:23)
[2019-07-03] MEDS: ASPIRIN EC 81 MG TAB PO SCH (09:13)
[2019-07-03] MEDS: FUROSEMIDE 40 MG TAB PO SCH (09:13)
[2019-07-03] MEDS ORDERED: ENOXAPARIN 40 MG/0.4 ML INJ SUB-Q SCH (10:00)
[2019-07-03] MEDS ORDERED: LISINOPRIL 20 MG TAB PO SCH (10:00)
[2019-07-03] MEDS ORDERED: CILOSTAZOL 100 MG TAB PO SCH (10:00)
--- NOTE | 2019-07-03 10:47 | Consultation ---
History of Present Illness Consult date: 07/03/19 Consult reason: bradycardia, hypertension History of present illness: This is a 54 year old woman with an extensive cardiac history. 6 months ago, she was hospitalized with VF arrest. A cardiac cath showed severe 3 vessel disease. She underwent successful staged 3 vessel PCI using drug eluting stents. Ejection fraction 30-35%. Patient also has a history of paroxysmal atrial fibrillation. She is on triple therapy with low dose Eliquis, plavix and aspirin therapy. A lifevest was placed before discharged. A follow up echocardiogram done in [facility] revealed an improved left ventricular ejection fraction 45-50%. It was at that time the lifevest was discontinued. Co-morbidities includes PVD, hypertension, prior DVT, and hyperlipidemia. Patient presented to the emergency department with complaint of headaches and elevated blood pressure. Blood pressure 227/71 on presentation. There were no complaints of shortness of breath, chest pain or palpitations. Patient admits compliance with her medications. A 12 lead ECG shows marked sinus bradycardia, rate 37. No acute ischemic changes. She is on amiodarone 200 mg daily and metoprolol 50 mg twice daily which was held in the emergency department. TSH is pending. A cardiac consultation has been requested for further recommendations. Medications and Allergies Allergies Allergy/AdvReac Type Severity Reaction Status Date / Time No Known Allergies Allergy Unverified 05/06/15 16:09 Home Medications Medication Instructions Recorded Confirmed Last Taken Type Amiodarone [Cordarone 200 MG TAB] 200 mg PO QDAY #30 tablet 12/15/18 07/02/19 Unknown Rx Aspirin EC [Halfprin EC] 81 mg PO QDAY #30 tablet 12/15/18 07/02/19 Unknown Rx AtorvaSTATin [Lipitor] 40 mg PO QHS #30 tablet 12/15/18 07/02/19 Unknown Rx Clopidogrel [Plavix] 75 mg PO QDAY #30 tablet 12/15/18 07/02/19 Unknown Rx Furosemide [Lasix TAB] 40 mg PO QDAY #30 tablet 12/15/18 07/02/19 Unknown Rx ISOSORBIDE MONOnitrate [Imdur ER] 30 mg PO QDAY #30 tablet 12/15/18 07/02/19 Unknown Rx Metoprolol [Lopressor TAB] 50 mg PO BID #60 tablet 12/15/18 07/02/19 Unknown Rx Pantoprazole [Protonix TAB] 40 mg PO QDAY #30 tablet 12/15/18 07/02/19 Unknown Rx cilostazoL [Pletal] 75 mg PO BID #60 tablet 12/15/18 07/02/19 Unknown Rx lisinopriL [Zestril TAB] 20 mg PO QDAY #30 tablet 12/15/18 07/02/19 Unknown Rx Apixaban [Eliquis] 2.5 mg PO BID 07/02/19 07/02/19 Unknown History Active Meds: Active Medications Acetaminophen (Tylenol) 650 mg PO Q4H PRN PRN Reason: Pain MILD(1-3)/Fever >100.5/TORRES Last Admin: 07/03/19 09:13 Dose: 650 mg Documented by: Apixaban (Eliquis) 2.5 mg PO BID [facility]; Protocol Last Admin: 07/03/19 09:13 Dose: 2.5 mg Documented by: Aspirin (Halfprin Ec) 81 mg PO QDAY [facility] Last Admin: 07/03/19 09:13 Dose: 81 mg Documented by: Atorvastatin Calcium (Lipitor) 40 mg PO QHS [facility] Clopidogrel Bisulfate (Plavix) 75 mg PO QDAY [facility] Last Admin: 07/03/19 09:13 Dose: 75 mg Documented by: Furosemide (Lasix) 40 mg PO QDAY [facility] Last Admin: 07/03/19 09:13 Dose: 40 mg Documented by: Hydralazine HCl (Apresoline) 5 mg IV Q6H PRN PRN Reason: Hypertension Isosorbide Mononitrate (Imdur) 30 mg PO QDAY [facility] Last Admin: 07/03/19 09:13 Dose: 30 mg Documented by: Lisinopril (Zestril) 20 mg PO QDAY [facility] Last Admin: 07/03/19 09:13 Dose: 20 mg Documented by: Ondansetron HCl (Zofran) 4 mg IV Q8H PRN PRN Reason: Nausea And Vomiting Oxycodone/Acetaminophen (Percocet 5/325) 1 tab PO Q6H PRN PRN Reason: Pain, Moderate (4-6) Pantoprazole Sodium (Protonix) 40 mg PO QDAY [facility] Last Admin: 07/03/19 09:13 Dose: 40 mg Documented by: Sodium Chloride (Sodium Chloride Flush Syringe 10 Ml) 10 ml IV BID [facility] Last Admin: 07/03/19 09:14 Dose: 10 ml Documented by: Sodium Chloride (Sodium Chloride Flush Syringe 10 Ml) 10 ml IV PRN PRN PRN Reason: LINE FLUSH Physical Examination Vital Signs Temp Pulse Resp BP Pulse Ox 98.7 F 44 L 20 181/112 98 07/02/19 18:33 07/02/19 18:33 07/02/19 18:33 07/02/19 18:33 07/02/19 18:33 General appearance: no acute distress HEENT: Positive: PERRL Neck: Positive: trachea midline Cardiac: Positive: Bradycardia Lungs: Positive: Decreased Breath Sounds Neuro: Positive: Grossly Intact Extremities: Absent: edema Results 07/03/19 07:06 07/03/19 07:06 Cardiac Enzymes 07/02/19 Range/Units 18:53 AST 17 (5-40) units/L Coagulation 07/02/19 Range/Units 18:53 PT 15.7 H (12.2-14.9) Sec. INR 1.23 H (0.87-1.13) APTT 29.8 (24.2-36.6) Sec. CBC 07/02/19 07/03/19 Range/Units 18:53 07:06 WBC 12.4 H 12.8 H (4.5-11.0) K/mm3 RBC 5.68 H 5.25 H (3.65-5.03) M/mm3 Hgb 14.6 H 13.5 (10.1-14.3) gm/dl Hct 46.3 H 42.2 (30.3-42.9) % Plt Count 334 315 (140-440) K/mm3 Lymph # 3.4 3.2 (1.2-5.4) K/mm3 Garvin # 0.7 0.7 (0.0-0.8) K/mm3 Eos # 0.4 0.4 (0.0-0.4) K/mm3 Baso # 0.1 0.1 (0.0-0.1) K/mm3 Comprehensive Metabolic Panel 07/02/19 07/03/19 Range/Units 18:53 07:06 Sodium 143 142 (137-145) mmol/L Potassium 3.4 L 3.7 (3.6-5.0) mmol/L Chloride 101.3 104.8 (98-107) mmol/L Carbon Dioxide 24 23 (22-30) mmol/L BUN 10 13 (7-17) mg/dL Creatinine 1.1 1.0 (0.7-1.2) mg/dL Glucose 98 105 H (65-100) mg/dL Calcium 9.1 8.9 (8.4-10.2) mg/dL AST 17 (5-40) units/L ALT 15 (7-56) units/L Alkaline Phosphatase 94 (35-129) units/L Total Protein 8.0 (6.3-8.2) g/dL Albumin 3.9 (3.9-5) g/dL Assessment and Plan Uncontrolled hypertension -improved Marked sinus bradycardia metoprolol and amiodarone discontinued Hx of Vfib arrest Hx of CAD s/p staged 3 vessel PCI 11/2018 on plavix and aspirin Hx of paroxysmal Afib on low dose eliquis for oral anticoagulation currently in sinus rhythm Hx of ischemic CMP, resolving Echo 03/2019- LVEF 45-50% Hx of Right common femoral vein DVT Peripheral vascular disease -on cilostazol Hyperlipidemia Check a TSH and magnesium. Continue telemetry monitoring.
[2019-07-03] MEDS: NIFEdipine XL 60 MG TAB PO SCH (14:02)
--- NOTE | 2019-07-03 15:25 | Progress Note ---
Assessment and Plan /Bradycardia secondary to amiodarone, Lopressor cont to Hold amiodarone, Lopressor, patient is asymptomatic Consulted cardiology - monitor another 24h with tele /Hypokalemia Repleted potassium /Headache - due to uncontrolled hypertension ? Check CT head - pending /Stress-induced leukocytosis, continue to monitor /DVT, A. fib Continue Eliquis, patient in sinus rhythm /CHF, stable Continue Lasix and other cardiac medications /Hyperlipidemia, continue statin /Hypertension, uncontrolled IV hydralazine as needed for blood pressure control, give a dose of Norvasc /PVD Continue outpatient medications DVT prophylaxis with Eliquis Disposition: possible d./c tomorrow if bradycardia resolves Subjective Date of service: 07/03/19 Interval history: Patient seen and examined remained bradycardic with HR of 40s on tele patient denies any chest pain Objective - Constitutional Vitals: Vital Signs - 12hr 07/03/19 07/03/19 04:46 07:50 Temperature 97.9 F 98.1 F Pulse Rate 46 L 40 L Respiratory 20 18 Rate Blood Pressure 120/63 147/63 O2 Sat by Pulse 94 94 Oximetry General appearance: Present: no acute distress, well-nourished - EENT Eyes: PERRL, EOM intact ENT: hearing intact, clear oral mucosa Ears: bilateral: normal - Neck Neck: supple, normal ROM - Respiratory Respiratory effort: normal Respiratory: bilateral: CTA - Cardiovascular Rhythm: other (bradycardic) Heart Sounds: Present: S1 & S2. Absent: gallop, rub Extremities: pulses intact, No edema, normal color, Full ROM - Gastrointestinal General gastrointestinal: Present: soft, non-tender, non-distended, normal bowel sounds - Integumentary Integumentary: clear, warm, dry - Musculoskeletal Musculoskeletal: 1, strength equal bilaterally - Neurologic Neurologic: moves all extremities - Psychiatric Psychiatric: memory intact, appropriate mood/affect, intact judgment & insight - Labs CBC & Chem 7: 07/03/19 07:06 07/03/19 07:06 Labs: Abnormal lab results 07/02/19 07/02/19 07/02/19 Range/Units 18:53 18:53 18:53 WBC 12.4 H (4.5-11.0) K/mm3 RBC 5.68 H (3.65-5.03) M/mm3 Hgb 14.6 H (10.1-14.3) gm/dl Hct 46.3 H (30.3-42.9) % MCH 26 L (28-32) pg RDW 18.2 H (13.2-15.2) % Seg Neutrophils # 7.8 H (1.8-7.7) K/mm3 PT 15.7 H (12.2-14.9) Sec. INR 1.23 H (0.87-1.13) Potassium 3.4 L (3.6-5.0) mmol/L Glucose (65-100) mg/dL Free T4 (0.76-1.46) ng/dL 07/03/19 07/03/19 07/03/19 Range/Units 07:06 07:06 11:18 WBC 12.8 H (4.5-11.0) K/mm3 RBC 5.25 H (3.65-5.03) M/mm3 Hgb (10.1-14.3) gm/dl Hct (30.3-42.9) % MCH 26 L (28-32) pg RDW 18.3 H (13.2-15.2) % Seg Neutrophils # 8.3 H (1.8-7.7) K/mm3 PT (12.2-14.9) Sec. INR (0.87-1.13) Potassium (3.6-5.0) mmol/L Glucose 105 H (65-100) mg/dL Free T4 1.79 H (0.76-1.46) ng/dL - Imaging and cardiology Chest x-ray: report reviewed
[2019-07-04] MEDS: APIXABAN 5 MG TAB PO SCH (09:33)
[2019-07-04] MEDS: PANTOPRAZOLE 40 MG TAB PO SCH (09:33)
[2019-07-04] MEDS: CLOPIDOGREL 75 MG TAB PO SCH (09:33)
[2019-07-04] MEDS: FUROSEMIDE 40 MG TAB PO SCH (09:33)
[2019-07-04] MEDS: NIFEdipine XL 60 MG TAB PO SCH (09:33)
[2019-07-04] MEDS: ASPIRIN EC 81 MG TAB PO SCH (09:33)
[2019-07-04 09:35] VITALS: BP 128/55
--- NOTE | 2019-07-04 09:46 | Progress Note ---
Assessment and Plan Uncontrolled hypertension -improved on zestril 40mg and procardia XL 60mg daily Marked sinus bradycardia metoprolol and amiodarone discontinued Hx of Vfib arrest Hx of CAD s/p staged 3 vessel PCI 11/2018 on plavix and aspirin Hx of paroxysmal Afib on low dose eliquis for oral anticoagulation currently in sinus rhythm Hx of ischemic CMP, resolving Echo 03/2019- LVEF 45-50% Hx of Right common femoral vein DVT Peripheral vascular disease -on cilostazol Hyperlipidemia Recommendations: Continue medical therapy for paroxysmal atrial fibrillation, coronary artery disease and optimal medical therapy for hypertension. Stable for discharge. Patient will follow up in our office as previously scheduled. Subjective Date of service: 07/04/19 Interval history: Patient is resting in bed comfortably. Sinus bradycardia, rate mid 40s-50's on telemetry. Objective Vital Signs Temp Pulse Resp BP Pulse Ox 07/04/19 09:34 54 L 128/55 07/04/19 09:27 51 L 07/04/19 07:55 97.8 F 51 L 18 112/55 97 07/04/19 04:25 98.2 F 40 L 16 171/53 96 07/03/19 23:30 98.3 F 45 L 16 149/63 94 07/03/19 20:52 51 L 07/03/19 19:33 98.6 F 51 L 16 158/70 93 07/03/19 18:17 98.0 F 18 162/75 07/03/19 14:25 98.1 F 18 146/69 - Physical Examination General: No Apparent Distress HEENT: Positive: PERRL Neck: Positive: trachea midline Cardiac: Positive: Bradycardia Lungs: Positive: Decreased Breath Sounds Neuro: Positive: Grossly Intact Extremities: Absent: edema
--- NOTE | 2019-07-04 09:46 | Discharge Summary ---
Providers - Providers Date of Admission: 07/02/19 22:12 Date of discharge: 07/04/19 Attending physician: GALILEA MORGAN 07/02/19 21:10 Consult to Physician [CONS] Stat Comment: Consulting Provider: EVERARDO UNDERWOOD Physician Instructions: Reason For Exam: Hypertensive emergency, symptomatic bradycardia Primary care physician: [facility], Hospitalization Condition: Stable Hospital course: Discharge Diagnosis: /Bradycardia secondary to amiodarone, Lopressor cont to Hold amiodarone, Lopressor, patient is asymptomatic Consulted cardiology - monitored another 24h with tele /Hypokalemia Repleted potassium /Headache - due to uncontrolled hypertension ? Check CT head - pending /Stress-induced leukocytosis, continue to monitor /DVT, A. fib Continue Eliquis, patient in sinus rhythm /CHF, stable Continue Lasix and other cardiac medications /Hyperlipidemia, continue statin /Hypertension, uncontrolled IV hydralazine as needed for blood pressure control, give a dose of Norvasc /PVD Continue outpatient medications DVT prophylaxis with Eliquis Disposition: DC-01 TO HOME OR SELFCARE Time spent for discharge: 34 minutes Core Measure Documentation - Palliative Care Palliative Care/ Comfort Measures: Not Applicable - Core Measures Any of the following diagnoses?: history only Exam - Constitutional Vitals: Temp Pulse Resp BP Pulse Ox 97.8 F 54 L 18 128/55 97 07/04/19 07:55 07/04/19 09:34 07/04/19 07:55 07/04/19 09:34 07/04/19 07:55 General appearance: Present: no acute distress, well-nourished - EENT Eyes: Present: PERRL ENT: hearing intact, clear oral mucosa - Neck Neck: Present: supple, normal ROM - Respiratory Respiratory effort: normal Respiratory: bilateral: CTA - Cardiovascular Heart Sounds: Present: S1 & S2. Absent: rub, click - Extremities Extremities: pulses symmetrical, No edema Peripheral Pulses: within normal limits - Abdominal General gastrointestinal: Present: soft, non-tender, non-distended, normal bowel sounds - Integumentary Integumentary: Present: clear, warm, dry - Musculoskeletal Musculoskeletal: gait normal, strength equal bilaterally - Psychiatric Psychiatric: appropriate mood/affect, intact judgment & insight - Neurologic Neurologic: CNII-XII intact, moves all extremities Plan Activity: advance as tolerated Weight Bearing Status: Weight Bear as Tolerated Special Instructions: record daily BP diary Follow up with: DIMITRI LOTT MD [Primary Care Provider] - 3-5 Days Prescriptions: NIFEdipine XL [Procardia Xl] 60 mg PO QDAY #30 tablet lisinopriL [Zestril TAB] 40 mg PO QDAY #30 tablet
[2019-07-04] MEDS ORDERED: LISINOPRIL 40 MG TAB PO SCH (10:00)
[2019-07-04] MEDS: ACETAMINOPHEN 325 MG TAB PO PRN (12:27)
--- NOTE | 2019-07-06 14:07 | Cat Scan Report ---
CT HEAD WITHOUT CONTRAST INDICATION: HIGH BLOOD PRESSURE, HEADACHE. TECHNIQUE: All CT scans at this location are performed using CT dose reduction for ALARA by means of automated e xposure control. COMPARISON: None available. FINDINGS: HEMORRHAGE: None. EXTRA-AXIAL SPACES: Normal in size and morphology for the patient's age. VENTRICULAR SYSTEM: Normal in size and morphology for the patient's age. BRAIN PARENCHYMA: No acute findings. MIDLINE SHIFT OR HERNIATION: None. ORBITS: Normal as visualized. SOFT TISSUES OF HEAD: Normal. CALVARIUM: Normal. VISUALIZED PARANASAL SINUSES AND MASTOID AIR CELLS: Clear. ADDITIONAL FINDINGS: None. IMPRESSION: 1. No acute intracranial abnormality. Signer Name: Jimmy Hernández MD Signed: 07/03/2019 2:17 AM Workstation Name: [employer]
== END 2019-07-04 15:20 | disposition home or self-care (01) ==
LOC: ED 16:52 → 4A 22:12
PROVIDERS: ADMIT Internal Medicine; ATTEND Internal Medicine
DX: R00.1 Bradycardia, unspecified (principal); E78.5 Hyperlipidemia, unspecified; R51 Headache; E87.6 Hypokalemia; D72.828 Other elevated white blood cell count; I25.10 Atherosclerotic heart disease of native coronary artery without angina pectoris; I73.9 Peripheral vascular disease, unspecified; I16.0 Hypertensive urgency; I11.0 Hypertensive heart disease with heart failure; I50.9 Heart failure, unspecified; I48.91 Unspecified atrial fibrillation; Z86.718 Personal history of other venous thrombosis and embolism; Z86.79 Personal history of other diseases of the circulatory system; Z79.01 Long term (current) use of anticoagulants; Z79.899 Other long term (current) drug therapy; Z79.82 Long term (current) use of aspirin; Z88.8 Allergy status to other drugs, medicaments and biological substances
CPT/HCPCS: 36415; 70450; 71046; 80048; 80053; 81001; 83735; 84439; 84443; 84484; 85025; 85610; 85730; 87116; 93005; 93010; 96374; 96376; 99291; A9270; G0378; J0360

== ENCOUNTER 2020-09-23 20:10 | Observation (INO) | payer BC, OTHER ==
[2020-09-23] MEDS ORDERED: ASPIRIN 325 MG TAB PO ONE (20:27)
--- NOTE | 2020-09-23 20:57 | XRay Report ---
CHEST 2 VIEWS INDICATION / CLINICAL INFORMATION: Chest pain and difficulty in breathing. COMPARISON: Chest x-ray on 07/02/2019 FINDINGS: SUPPORT DEVICES: None. HEART / MEDIASTINUM: No significant abnormality. LUNGS / PLEURA: No significant pulmonary or pleural abnormality. No pneumothorax. ADDITIONAL FINDINGS: No significant additional findings. IMPRESSION: 1. No acute findings. Signer Name: Yeyo Felix MD Signed: 09/23/2020 8:53 PM Workstation Name: [id number]
[2020-09-23 21:47] LABS: Basophils # (Auto) 0.1 K/mm3 (0.0-0.1); Basophils % (Auto) 0.7 % (0.0-1.8); Eosinophils # (Auto) 0.2 K/mm3 (0.0-0.4); Eosinophils % (Auto) 1.2 % (0.0-4.3); Hematocrit 37.9 % (30.3-42.9); Hemoglobin 12.4 gm/dl (10.1-14.3); Lymphocytes # (Auto) 3.2 K/mm3 (1.2-5.4); Lymphocytes % (Auto) 17.7 % (13.4-35.0); Mean Corpuscular HGB Conc 33 % (30-34); Mean Corpuscular Volume 83 fl (79-97); Monocytes % (Auto) 5.7 % (0.0-7.3); Platelet Count 457 K/mm3 (140-440); Red Blood Count 4.55 M/mm3 (3.65-5.03); Red Cell Distribution Width 16.9 % (13.2-15.2)
[2020-09-23 22:26] LABS: Alanine Aminotransferase 9 units/L (7-56); BUN/Creatinine Ratio 13; Blood Urea Nitrogen 12 mg/dL (7-17); Calcium 9.4 mg/dL (8.4-10.2); Hemolysis Index 3
--- NOTE | 2020-09-23 23:27 | Emergency Department Report ---
ED Chest Pain HPI - General Chief Complaint: Chest Pain Stated Complaint: CHEST PAINS/SOB Time Seen by Provider: 09/23/20 23:15 Source: patient Mode of arrival: Ambulatory Limitations: No Limitations - History of Present Illness Initial Comments: Patient is 55-year-old female with history of coronary artery disease, 4 stents, hypertension atrial fibrillation on Eliquis. Patient also stated that she had history of cardiac arrest secondary to an VT. Patient presented to the ER complaining of right sided chest pain started yesterday. Patient described her pain as pressure and aching sometimes radiate to the right shoulder and one time radiated to the left chest. Patient also complaining of shortness of breath. She denied any fever or chills., No nausea or vomiting or diarrhea. MD Complaint: chest pain -: Last night Onset: during rest Pain Location: right chest Pain Radiation: RUE Severity: moderate Severity scale (0 -10): 5 Quality: tightness, aching - Related Data Home Medications Medication Instructions Recorded Confirmed Last Taken Apixaban [Eliquis] 2.5 mg PO BID 07/02/19 09/24/20 09/23/20 Valsartan [Diovan] 1 tab PO DAILY 09/24/20 09/24/20 09/23/20 Previous Rx's Medication Instructions Recorded Last Taken Type Aspirin EC [Halfprin EC] 81 mg PO QDAY #30 tablet 12/15/18 09/23/20 Rx AtorvaSTATin [Lipitor] 40 mg PO QHS #30 tablet 12/15/18 09/23/20 Rx Clopidogrel [Plavix] 75 mg PO QDAY #30 tablet 12/15/18 09/23/20 Rx Furosemide [Lasix TAB] 40 mg PO QDAY #30 tablet 12/15/18 09/23/20 Rx ISOSORBIDE MONOnitrate [Imdur ER] 30 mg PO QDAY #30 tablet 12/15/18 09/23/20 Rx Pantoprazole [Protonix TAB] 40 mg PO QDAY #30 tablet 12/15/18 09/23/20 Rx cilostazoL [Pletal] 75 mg PO BID #60 tablet 12/15/18 09/23/20 Rx NIFEdipine XL [Procardia Xl] 60 mg PO QDAY #30 tablet 07/04/19 09/23/20 Rx Allergies Allergy/AdvReac Type Severity Reaction Status Date / Time No Known Allergies Allergy Verified 09/24/20 00:03 Heart Score - HEART Score History: Moderately suspicious EKG: Non-specific Age: 45-65 Risk factors: > 3 risk factors or hx of atherosclerotic disease Troponin: < normal limit HEART Score: 5 - EKG Read Time Time EKG Completed: 20:31 EKG Read Time: 20:40 ED Review of Systems ROS: Stated complaint: CHEST PAINS/SOB Other details as noted in HPI Comment: All other systems reviewed and negative Constitutional: denies: chills, fever Respiratory: shortness of breath, SOB with exertion, SOB at rest. denies: cough Cardiovascular: chest pain. denies: palpitations Gastrointestinal: denies: abdominal pain, nausea, vomiting Musculoskeletal: denies: back pain Neurological: denies: headache, weakness, numbness, paresthesias, confusion ED Past Medical Hx - Past Medical History Hx Hypertension: Yes Hx Congestive Heart Failure: Yes (MIGUELINA) Hx Diabetes: (MIGUELINA) Hx Deep Vein Thrombosis: No Hx Asthma: (MIGUELINA) Hx COPD: (MIGUELINA) Additional medical history: A-Fib, cardiac arrest - Surgical History Hx Pacemaker: No Hx Internal Defibrillator: No Additional Surgical History: D&C - Social History Smoking Status: Never Smoker - Medications Home Medications: Home Medications Medication Instructions Recorded Confirmed Last Taken Type Aspirin EC [Halfprin EC] 81 mg PO QDAY #30 tablet 12/15/18 09/24/20 09/23/20 Rx AtorvaSTATin [Lipitor] 40 mg PO QHS #30 tablet 12/15/18 09/24/20 09/23/20 Rx Clopidogrel [Plavix] 75 mg PO QDAY #30 tablet 12/15/18 09/24/20 09/23/20 Rx Furosemide [Lasix TAB] 40 mg PO QDAY #30 tablet 12/15/18 09/24/20 09/23/20 Rx ISOSORBIDE MONOnitrate [Imdur ER] 30 mg PO QDAY #30 tablet 12/15/18 09/24/20 09/23/20 Rx Pantoprazole [Protonix TAB] 40 mg PO QDAY #30 tablet 12/15/18 09/24/20 09/23/20 Rx cilostazoL [Pletal] 75 mg PO BID #60 tablet 12/15/18 09/24/20 09/23/20 Rx Apixaban [Eliquis] 2.5 mg PO BID 07/02/19 09/24/20 09/23/20 History NIFEdipine XL [Procardia Xl] 60 mg PO QDAY #30 tablet 07/04/19 09/24/20 09/23/20 Rx Valsartan [Diovan] 1 tab PO DAILY 09/24/20 09/24/20 09/23/20 History ED Physical Exam - General Limitations: No Limitations General appearance: alert, in no apparent distress - Head Head exam: Present: atraumatic, normocephalic, normal inspection - Eye Eye exam: Present: normal appearance - ENT ENT exam: Present: normal exam, normal orophraynx, mucous membranes moist - Neck Neck exam: Present: normal inspection, full ROM. Absent: tenderness, meningismus - Respiratory Respiratory exam: Present: normal lung sounds bilaterally - Cardiovascular Cardiovascular Exam: Present: regular rate, normal rhythm, normal heart sounds - GI/Abdominal GI/Abdominal exam: Present: soft, normal bowel sounds. Absent: distended, tend erness, guarding, rebound, rigid, organomegaly, mass, bruit, pulsatile mass, hernia - Extremities Exam Extremities exam: Present: normal inspection, full ROM, normal capillary refill. Absent: pedal edema, calf tenderness - Back Exam Back exam: Present: normal inspection, full ROM. Absent: CVA tenderness (R), CVA tenderness (L) - Neurological Exam Neurological exam: Present: alert, oriented X3, CN II-XII intact - Psychiatric Psychiatric exam: Present: normal mood - Skin Skin exam: Present: warm, intact, normal color ED Course Vital Signs 09/23/20 09/23/20 09/23/20 20:24 23:19 23:31 Temperature 99.6 F Pulse Rate 83 68 Respiratory 16 14 Rate Blood Pressure 124/73 157/89 Blood Pressure [Left] O2 Sat by Pulse 99 98 99 Oximetry 09/23/20 09/24/20 09/24/20 23:48 00:01 00:54 Temperature Pulse Rate 84 87 75 Respiratory 18 24 19 Rate Blood Pressure 126/61 Blood Pressure 157/89 [Left] O2 Sat by Pulse 100 99 99 Oximetry 09/24/20 09/24/20 09/24/20 01:00 01:30 02:01 Temperature Pulse Rate 72 77 Respiratory 28 H 20 Rate Blood Pressure 123/70 Blood Pressure [Left] O2 Sat by Pulse 96 98 93 Oximetry 09/24/20 02:31 Temperature Pulse Rate 85 Respiratory 24 Rate Blood Pressure 127/69 Blood Pressure [Left] O2 Sat by Pulse 95 Oximetry TYSON score - Tyson Score Age > 65: (0) No Aspirin use within the Past 7 Days: (1) Yes 3 or more CAD Risk Factors: (1) Yes 2 or more Angina events in past 24 hrs: (0) No Known CAD with more than 50% Stenosis: (0) No Elevated Cardiac Markers: (0) No ST Deviation Greater than 0.5mm: (0) No TYSON Score: 2 ED Medical Decision Making - Lab Data Result diagrams: 09/23/20 21:17 09/23/20 21:17 - EKG Data -: EKG Interpreted by Nm EKG shows normal: sinus rhythm Rate: normal - EKG Data Interpretation: no acute changes - Radiology Data Radiology results: report reviewed - Medical Decision Making Patient is 55-year-old female with history of coronary artery disease, 4 stents, hypertension atrial fibrillation on Eliquis. Patient also stated that she had history of cardiac arrest secondary to an VT. Patient presented to the ER complaining of right sided chest pain started yesterday. Patient described her pain as pressure and aching sometimes radiate to the right shoulder and one time radiated to the left chest. Patient also complaining of shortness of breath. She denied any fever or chills., No nausea or vomiting or diarrhea. EKG showed no ST elevation. Labs reviewed and is unremarkable including a negative troponin. CTA of the chest negative for pulmonary embolism. Labs reviewed and showed leukocytosis of 18,000 however patient does not have any cough or fever. I discussed the patient with Dr. Ponce, he agreed to admit the patient to medical service for further management. Critical care attestation.: If time is entered above; I have spent that time in minutes in the direct care of this critically ill patient, excluding procedure time. ED Disposition Clinical Impression: Acute chest pain, Leukocytosis Disposition: OP ADMIT IP TO THIS HOSP Is pt being admited?: Yes Condition: Stable Instructions: Chest Pain (ED)
[2020-09-23] MEDS ORDERED: ASPIRIN 81 MG TAB CHEW PO ONE (23:55)
[2020-09-24 00:15] LABS: INR 1.23 (0.87-1.13)
[2020-09-24 00:16] LABS: Partial Thromboplastin Time 39.7 Sec. (24.2-36.6)
--- NOTE | 2020-09-24 01:29 | Cat Scan Report ---
CTA CHEST WITH IV CONTRAST INDICATION: Patient complains of chest pain with S.O.B.. TECHNIQUE: Axial CT images were obtained through the chest after injection of 100 cc Omnipaque 350 IV contrast. 3 plane MIP reconstructions were produced. All CT scans at this location are performed using CT dose reduction for ALARA by means of automated exposure control. COMPARISON: 2 views of the chest from 09/23/2020 FINDINGS: PULMONARY ARTERIES: No pulmonary emboli. AORTA AND ARTERIES: No acute abnormality. The aorta is normal in caliber. Mild coronary atheroscleros is is noted with multiple previously placed coronary artery stents. HEART: No significant abnormality. MEDIASTINUM: No significant abnormality. LUNGS: No suspicious consolidation, nodule or mass. No pneumothorax or pleural effusion. ADDITIONAL FINDINGS: None. UPPER ABDOMEN: No acute findings. BONES: No acute abnormality. Mild degenerative changes are present throughout the spine. IMPRESSION: 1. No CT evidence for pulmonary embolism. 2. No acute findings. Signer Name: Kanu Mendez MD Signed: 09/24/2020 1:24 AM Workstation Name: [id number]
[2020-09-24 01:56] LABS: Bilirubin,Urine NEG (Negative); Blood,Urine NEG (Negative); Color,Urine Yellow (Yellow); Mucus,Urine FEW /HPF; Protein,Urine <15 mg/dL mg/dL (Negative); Urobilinogen,Urine < 2.0 mg/dL (<2.0)
[2020-09-24] MEDS ORDERED: traMADol 50 MG TAB PO PRN (03:27)
[2020-09-24] MEDS ORDERED: ACETAMINOPHEN 325 MG TAB PO PRN (03:27)
[2020-09-24] MEDS ORDERED: NITROGLYCERIN 0.4 MG TAB SUBL SL PRN (03:27)
[2020-09-24] MEDS ORDERED: MORPHINE 2 MG/1 ML INJ IV PRN (03:27)
[2020-09-24] MEDS ORDERED: DEXTROSE 50% IN WATER (25GM) 50 ML SYRINGE IV PRN (03:33)
[2020-09-24] MEDS ORDERED: ONDANSETRON 4 MG/2 ML INJ IV PRN (03:33)
[2020-09-24] MEDS ORDERED: ALBUTEROL 2.5 MG/3 ML NEBU IH PRN (04:47)
--- NOTE | 2020-09-24 04:50 | History and Physical Report ---
History of Present Illness Date of examination: 09/24/20 Date of admission: 09/24/2020 Chief complaint: chest pain History of present illness: 55-year-old -[place] female with history of HTN, DM, CAD, PVD, CHF, A. fib, DVT, ischemic cardiomyopathy, and V. fib arrest who presents [facility] ED with complaints of chest pain x4 days. Patient states she has been experiencing intermittent 7/10 right sided aching pressure chest pain with radiation to neck on the right breast, and right shoulder. Her pain waxes and wanes, exacerbated with movement and activity, improves with rest. Endorses dyspnea with exertion. Denies increase bilateral lower extremity edema, palpitation, nausea, vomiting, fever, diaphoresis, cough, PND, orthopnea, medication noncompliant, or recent sick contacts Past History Past Medical History: atrial fib, CAD, diabetes, DVT (On anticoagulation), hypertension, other (PVD, CHF, ischemic cardiomyopathy, V. fib arrest) Past Surgical History: Other (stent x4) Social history: single, , full code. denies: smoking, alcohol abuse, prescription drug abuse, IV drug use Family history: hypertension Medications and Allergies Allergies Allergy/AdvReac Type Severity Reaction Status Date / Time No Known Allergies Allergy Verified 09/24/20 00:03 Home Medications Medication Instructions Recorded Confirmed Last Taken Type Aspirin EC [Halfprin EC] 81 mg PO QDAY #30 tablet 12/15/18 09/24/20 09/23/20 Rx AtorvaSTATin [Lipitor] 40 mg PO QHS #30 tablet 12/15/18 09/24/20 09/23/20 Rx Clopidogrel [Plavix] 75 mg PO QDAY #30 tablet 12/15/18 09/24/20 09/23/20 Rx Furosemide [Lasix TAB] 40 mg PO QDAY #30 tablet 12/15/18 09/24/20 09/23/20 Rx ISOSORBIDE MONOnitrate [Imdur ER] 30 mg PO QDAY #30 tablet 12/15/18 09/24/20 09/23/20 Rx Pantoprazole [Protonix TAB] 40 mg PO QDAY #30 tablet 12/15/18 09/24/20 09/23/20 Rx cilostazoL [Pletal] 75 mg PO BID #60 tablet 12/15/18 09/24/20 09/23/20 Rx Apixaban [Eliquis] 2.5 mg PO BID 07/02/19 09/24/20 09/23/20 History NIFEdipine XL [Procardia Xl] 60 mg PO QDAY #30 tablet 07/04/19 09/24/20 09/23/20 Rx Valsartan [Diovan] 1 tab PO DAILY 09/24/20 09/24/20 09/23/20 History Active Meds: Active Medications Acetaminophen (Acetaminophen 325 Mg Tab) 650 mg PO Q6H PRN PRN Reason: Pain, Mild (1-3) Apixaban (Apixaban 2.5 Mg Tab) 2.5 mg PO BID [facility] Aspirin (Aspirin Ec 81 Mg Tab) 81 mg PO QDAY [facility] Atorvastatin Calcium (Atorvastatin 40 Mg Tab) 40 mg PO QHS [facility] Clopidogrel Bisulfate (Clopidogrel 75 Mg Tab) 75 mg PO QDAY [facility] Dextrose (Dextrose 50% In Water (25gm) 50 Ml Syringe) 0 ml IV Q30MIN PRN; Protocol PRN Reason: Hypoglycemia Docusate Sodium (Docusate Sodium 100 Mg Cap) 100 mg PO BID [facility] Furosemide (Furosemide 40 Mg Tab) 40 mg PO QDAY [facility] Insulin Glargine (Insulin Glargine 100 Units/Ml) 5 units SUB-Q QAMDIAB [facility] Insulin Human Lispro (Insulin Lispro 100 Unit/Ml) 0 unit SUB-Q ACHS [facility]; Protocol Isosorbide Mononitrate (Isosorbide Mononitrate Er 30 Mg Tab) 30 mg PO QDAY [facility] Morphine Sulfate (Morphine 2 Mg/1 Ml Inj) 2 mg IV Q5MIN PRN PRN Reason: Chest Pain Nifedipine (Nifedipine Xl 60 Mg Tab) 60 mg PO QDAY@0800 [facility] Nitroglycerin (Nitroglycerin 0.4 Mg Tab Subl) 0.4 mg SL Q5M PRN PRN Reason: Chest Pain Ondansetron HCl (Ondansetron 4 Mg/2 Ml Inj) 4 mg IV Q6H PRN PRN Reason: Nausea And Vomiting Pantoprazole Sodium (Pantoprazole 40 Mg Tab) 40 mg PO BID [facility] Sodium Chloride (Sodium Chloride 0.9% 10 Ml Flush Syringe) 10 ml IV PRN PRN PRN Reason: LINE FLUSH Tramadol HCl (Tramadol 50 Mg Tab) 50 mg PO Q6H PRN PRN Reason: Pain, Moderate (4-6) Valsartan (Valsartan 160mg Tab) 160 mg PO DAILY DC Review of Systems All systems: negative (As noted in HPI) Exam - Physical Exam Narrative exam: Physical exam General appearance: Present: No acute distress, pleasant, well-nourished, well- developed, -[place] adult female - EENT Eyes: Present: PERRL, EOM intact ENT: hearing intact, normal dentition - Neck Neck: Present: supple, normal ROM - Respiratory Respiratory effort: Non-labored Respiratory: Clear throughout - Cardiovascular Heart rate: 89 (bpm) Rhythm: Sinus Heart Sounds: Present: S1 & S2. Absent: rub, click - Extremities Extremities: no ischemia, pulses intact, trace edema right lower extremity - Peripheral Assessment Peripheral Pulses: within normal limits - Abdominal General gastrointestinal: soft, non-tender, normal bowel sounds - Integumentary Integumentary: Present: warm, dry - Musculoskeletal Musculoskeletal: Able to move all extremities -Neurological Neurological: CN II-XII intact - Psychiatric Psychiatric: cooperative - Constitutional Vitals: Temp Pulse Resp BP Pulse Ox 99.6 F 85 24 127/69 95 09/23/20 20:24 09/24/20 02:31 09/24/20 02:31 09/24/20 02:31 09/24/20 02:31 HEART Score - HEART Score EKG: Non-specific Age: 45-65 Risk factors: > 3 risk factors or hx of atherosclerotic disease Troponin: Troponin T < 0.010 ng/mL (0.00-0.029) 09/24/20 02:48 Troponin: < normal limit Results - Labs CBC & Chem 7: 09/23/20 21:17 09/23/20 21:17 Labs: Laboratory Last Values WBC 18.0 K/mm3 (4.5-11.0) H 09/23/20 21:17 RBC 4.55 M/mm3 (3.65-5.03) 09/23/20 21:17 Hgb 12.4 gm/dl (10.1-14.3) 09/23/20 21:17 Hct 37.9 % (30.3-42.9) 09/23/20 21:17 MCV 83 fl (79-97) 09/23/20 21:17 MCH 27 pg (28-32) L 09/23/20 21:17 MCHC 33 % (30-34) 09/23/20 21:17 RDW 16.9 % (13.2-15.2) H 09/23/20 21:17 Plt Count 457 K/mm3 (140-440) H 09/23/20 21:17 Lymph % (Auto) 17.7 % (13.4-35.0) 09/23/20 21:17 [place] % (Auto) 5.7 % (0.0-7.3) 09/23/20 21:17 Eos % (Auto) 1.2 % (0.0-4.3) 09/23/20 21:17 Baso % (Auto) 0.7 % (0.0-1.8) 09/23/20 21:17 Lymph # (Auto) 3.2 K/mm3 (1.2-5.4) 09/23/20 21:17 [place] # (Auto) 1.0 K/mm3 (0.0-0.8) H 09/23/20 21:17 Eos # (Auto) 0.2 K/mm3 (0.0-0.4) 09/23/20 21:17 Baso # (Auto) 0.1 K/mm3 (0.0-0.1) 09/23/20 21:17 Seg Neutrophils % 74.7 % (40.0-70.0) H 09/23/20 21:17 Seg Neutrophils # 13.4 K/mm3 (1.8-7.7) H 09/23/20 21:17 PT 15.5 Sec. (12.2-14.9) H 09/23/20 23:33 INR 1.23 (0.87-1.13) H 09/23/20 23:33 APTT 39.7 Sec. (24.2-36.6) H 09/23/20 23:33 Sodium 141 mmol/L (137-145) 09/23/20 21:17 Potassium 3.6 mmol/L (3.6-5.0) 09/23/20 21:17 Chloride 101.0 mmol/L (98-107) 09/23/20 21:17 Carbon Dioxide 28 mmol/L (22-30) 09/23/20 21:17 Anion Gap 16 mmol/L 09/23/20 21:17 BUN 12 mg/dL (7-17) 09/23/20 21:17 Creatinine 0.9 mg/dL (0.6-1.2) 09/23/20 21:17 Estimated GFR > 60 ml/min 09/23/20 21:17 BUN/Creatinine Ratio 13 % 09/23/20 21:17 Glucose 116 mg/dL (65-100) H 09/23/20 21:17 Calcium 9.4 mg/dL (8.4-10.2) 09/23/20 21:17 Total Bilirubin 0.30 mg/dL (0.1-1.2) 09/23/20 21:17 AST 14 units/L (5-40) 09/23/20 21:17 ALT 9 units/L (7-56) 09/23/20 21:17 Alkaline Phosphatase 123 units/L (35-129) 09/23/20 21:17 Troponin T < 0.010 ng/mL (0.00-0.029) 09/24/20 02:48 NT-Pro-B Natriuret Pep 73.97 pg/mL (0-900) 09/23/20 23:33 Total Protein 7.9 g/dL (6.3-8.2) 09/23/20 21:17 Albumin 4.0 g/dL (3.9-5) 09/23/20 21:17 Albumin/Globulin Ratio 1.0 % 09/23/20 21:17 Urine Color Yellow (Yellow) 09/24/20 01:34 Urine Turbidity Cloudy (Clear) 09/24/20 01:34 Urine pH 8.0 (5.0-7.0) H 09/24/20 01:34 Ur Specific [place] 1.040 (1.003-1.030) H 09/24/20 01:34 Urine Protein <15 mg/dl mg/dL (Negative) 09/24/20 01:34 Urine Glucose (UA) Neg mg/dL (Negative) 09/24/20 01:34 Urine Ketones Neg mg/dL (Negative) 09/24/20 01:34 Urine Blood Neg (Negative) 09/24/20 01:34 Urine Nitrite Neg (Negative) 09/24/20 01:34 Urine Bilirubin Neg (Negative) 09/24/20 01:34 Urine Urobilinogen < 2.0 mg/dL (<2.0) 09/24/20 01:34 Ur Leukocyte Esterase Neg (Negative) 09/24/20 01:34 Urine WBC (Auto) 2.0 /HPF (0.0-6.0) 09/24/20 01:34 Urine RBC (Auto) 6.0 /HPF (0.0-6.0) 09/24/20 01:34 U Epithel Cells (Auto) 42.0 /HPF (0-13.0) H 09/24/20 01:34 Urine Mucus Few /HPF 09/24/20 01:34 - Imaging and Cardiology Imaging and Cardiology: CT Chest: FINDINGS: PULMONARY ARTERIES: No pulmonary emboli. AORTA AND ARTERIES: No acute abnormality. The aorta is normal in caliber. Mild coronary atherosclerosis is noted with multiple previously placed coronary artery stents. HEART: No significant abnormality. MEDIASTINUM: No significant abnormality. LUNGS: No suspicious consolidation, nodule or mass. No pneumothorax or pleural effusion. ADDITIONAL FINDINGS: None. UPPER ABDOMEN: No acute findings. BONES: No acute abnormality. Mild degenerative changes are present throughout the spine. IMPRESSION: 1. No CT evidence for pulmonary embolism. 2. No acute findings. FINDINGS: SUPPORT DEVICES: None. HEART / MEDIASTINUM: No significant abnormality. LUNGS / PLEURA: No significant pulmonary or pleural abnormality. No pneumothorax. ADDITIONAL FINDINGS: No significant additional findings. IMPRESSION: 1. No acute findings. Assessment and Plan Assessment and plan: Atypical acute Chest Pain -Initiate chest pain protocol -R/O ACS -Continuous telemetry monitoring -Continue supportive care -Pain mgmt -Troponin negative x 1, will continue to trend -EKG unrevealing for acute ischemic abnormalities -Given patient's extensive cardiac history will defer additional work-up per cardiology recommendations -Cardiology consulted Leukocytosis -18.0 -Afebrile, BP WNL, heart rate WNL -CXR -UA negative -Cultures pending -Hold off on starting IV ABX for now, continue work-up -Monitor CBC Dyspnea -Complained of dyspnea on exertion -CT chest negative for PE -Albuterol as needed History of A. fib -On anticoagulation -On continuous telemetry monitoring HTN -Monitor BP -Resume home hypertensive meds GERD -Previously on Protonix once daily, -Will increase to twice daily, to see if any improvement in chest/shoulder, neck pain DM -POC BG monitoring -On scheduled SSI coverage prn -HgbA1C pending Advance Directives: No VTE prophylaxis?: Chemical, Mechanical Plan of care discussed with patient/family: Yes
[2020-09-24 06:37] LABS: Basophils # (Auto) 0.1 K/mm3 (0.0-0.1); Basophils % (Auto) 0.5 % (0.0-1.8); Eosinophils # (Auto) 0.2 K/mm3 (0.0-0.4); Eosinophils % (Auto) 1.3 % (0.0-4.3); Hematocrit 33.6 % (30.3-42.9); Hemoglobin 11.3 gm/dl (10.1-14.3); Lymphocytes # (Auto) 3.4 K/mm3 (1.2-5.4); Lymphocytes % (Auto) 20.1 % (13.4-35.0); Mean Corpuscular HGB Conc 34 % (30-34); Mean Corpuscular Volume 82 fl (79-97); Monocytes # (Auto) 0.9 K/mm3 (0.0-0.8); Monocytes % (Auto) 5.5 % (0.0-7.3); Platelet Count 421 K/mm3 (140-440); Red Blood Count 4.09 M/mm3 (3.65-5.03); Red Cell Distribution Width 16.4 % (13.2-15.2)
[2020-09-24 06:45] LABS: BUN/Creatinine Ratio 14; Blood Urea Nitrogen 11 mg/dL (7-17); Calcium 8.8 mg/dL (8.4-10.2); Hemolysis Index 2
[2020-09-24] MEDS: INSULIN LISPRO 100 UNIT/ML SUB-Q SCH ×2 (07:53→12:39)
[2020-09-24] MEDS ORDERED: INSULIN GLARGINE 100 UNITS/ML SUB-Q SCH (08:00)
[2020-09-24] MEDS ORDERED: NIFEdipine XL 60 MG TAB PO SCH (08:00)
[2020-09-24] MEDS ORDERED: FUROSEMIDE 40 MG TAB PO SCH (10:00)
[2020-09-24] MEDS ORDERED: ASPIRIN EC 81 MG TAB PO SCH (10:00)
[2020-09-24] MEDS ORDERED: CLOPIDOGREL 75 MG TAB PO SCH (10:00)
[2020-09-24] MEDS ORDERED: PANTOPRAZOLE 40 MG TAB PO SCH ×2 (10:00)
[2020-09-24] MEDS ORDERED: VALSARTAN 160MG TAB PO SCH (10:00)
[2020-09-24] MEDS ORDERED: APIXABAN 2.5 MG TAB PO SCH (10:00)
[2020-09-24] MEDS ORDERED: DOCUSATE SODIUM 100 MG CAP PO SCH (10:00)
--- NOTE | 2020-09-24 10:50 | Electrocardiograph Report ---
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
--- NOTE | 2020-09-24 10:52 | Electrocardiograph Report ---
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
--- NOTE | 2020-09-24 10:53 | Electrocardiograph Report ---
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
--- NOTE | 2020-09-24 11:41 | Consultation ---
History of Present Illness Consult date: 09/24/20 Consult reason: chest pain, known to you History of present illness: This is a 55-year old F with an extensive cardiac history. December 2018 she was hospitalized with Vfib arrest. A cardiac catheterization showed severe three- vessel disease, including subtotal occlusion of the proximal circumflex artery, 80% stenosis of the mid LAD, and 90% stenosis of the mid right coronary artery She underwent staged intervention with PCI and stenting using drug eluting stents. She is on triple therapy with plavix, aspirin and low dose Eliquis for paroxysmal Atrial fibrillation in addition to coronary artery disease. She also has resolving ischemic cardiomyopathy, left ventricular ejection fraction 45-50% by most recent echocardiogram. Co-morbidities includes PVD, Hypertension, prior DVT, and hyperlipidemia. Patient presents to this hospital, admitted with atypical chest pain. She describes right sided chest pain, associated with pain of the shoulder that is worse with position change and RUE ROM. Denies chest pain on exertion. Denies SOB and denies palpitations. There is no edema. Chest x-ray is negative and a CT scan of the chest documents no evidence of pulmonary embolism. Serial troponin measurements are normal. 12-lead ECG is sinus rhythm with non-specific T wave changes. Past History Past Medical History: atrial fib, CAD, diabetes, DVT (On anticoagulation), hypertension, other (PVD, ischemic cardiomyopathy, V. fib arrest) Social history: single, , full code. denies: smoking, alcohol abuse, prescription drug abuse, IV drug use Family history: hypertension Medications and Allergies Allergies Allergy/AdvReac Type Severity Reaction Status Date / Time No Known Allergies Allergy Verified 09/24/20 00:03 Home Medications Medication Instructions Recorded Confirmed Last Taken Type Aspirin EC [Halfprin EC] 81 mg PO QDAY #30 tablet 12/15/18 09/24/20 09/23/20 Rx AtorvaSTATin [Lipitor] 40 mg PO QHS #30 tablet 12/15/18 09/24/20 09/23/20 Rx Clopidogrel [Plavix] 75 mg PO QDAY #30 tablet 12/15/18 09/24/20 09/23/20 Rx Furosemide [Lasix TAB] 40 mg PO QDAY #30 tablet 12/15/18 09/24/20 09/23/20 Rx ISOSORBIDE MONOnitrate [Imdur ER] 30 mg PO QDAY #30 tablet 12/15/18 09/24/20 09/23/20 Rx Pantoprazole [Protonix TAB] 40 mg PO QDAY #30 tablet 12/15/18 09/24/20 09/23/20 Rx cilostazoL [Pletal] 75 mg PO BID #60 tablet 12/15/18 09/24/20 09/23/20 Rx Apixaban [Eliquis] 2.5 mg PO BID 07/02/19 09/24/20 09/23/20 History NIFEdipine XL [Procardia Xl] 60 mg PO QDAY #30 tablet 07/04/19 09/24/20 09/23/20 Rx Valsartan [Diovan] 1 tab PO DAILY 09/24/20 09/24/20 09/23/20 History Active Meds: Active Medications Acetaminophen (Acetaminophen 325 Mg Tab) 650 mg PO Q6H PRN PRN Reason: Pain, Mild (1-3) Albuterol (Albuterol 2.5 Mg/3 Ml Nebu) 2.5 mg IH Q4HRT PRN PRN Reason: Shortness Of Breath Apixaban (Apixaban 2.5 Mg Tab) 2.5 mg PO BID [facility] Last Admin: 09/24/20 10:37 Dose: 2.5 mg Documented by: Aspirin (Aspirin Ec 81 Mg Tab) 81 mg PO QDAY [facility] Last Admin: 09/24/20 10:37 Dose: 81 mg Documented by: Atorvastatin Calcium (Atorvastatin 40 Mg Tab) 40 mg PO QHS DC Clopidogrel Bisulfate (Clopidogrel 75 Mg Tab) 75 mg PO QDAY [facility] Last Admin: 09/24/20 10:37 Dose: 75 mg Documented by: Dextrose (Dextrose 50% In Water (25gm) 50 Ml Syringe) 0 ml IV Q30MIN PRN; Protocol PRN Reason: Hypoglycemia Docusate Sodium (Docusate Sodium 100 Mg Cap) 100 mg PO BID [facility] Last Admin: 09/24/20 10:38 Dose: 100 mg Documented by: Furosemide (Furosemide 40 Mg Tab) 40 mg PO QDAY [facility] Last Admin: 09/24/20 10:37 Dose: 40 mg Documented by: Insulin Glargine (Insulin Glargine 100 Units/Ml) 5 units SUB-Q QAMDIAB [facility] Last Admin: 09/24/20 10:40 Dose: Not Given Documented by: Insulin Human Lispro (Insulin Lispro 100 Unit/Ml) 0 unit SUB-Q ACHS [facility]; Protocol Last Admin: 09/24/20 07:53 Dose: Not Given Documented by: Isosorbide Mononitrate (Isosorbide Mononitrate Er 30 Mg Tab) 30 mg PO QDAY [facility] Last Admin: 09/24/20 10:37 Dose: 30 mg Documented by: Morphine Sulfate (Morphine 2 Mg/1 Ml Inj) 2 mg IV Q5MIN PRN PRN Reason: Chest Pain Nifedipine (Nifedipine Xl 60 Mg Tab) 60 mg PO QDAY@0800 [facility] Last Admin: 09/24/20 10:38 Dose: 60 mg Documented by: Nitroglycerin (Nitroglycerin 0.4 Mg Tab Subl) 0.4 mg SL Q5M PRN PRN Reason: Chest Pain Ondansetron HCl (Ondansetron 4 Mg/2 Ml Inj) 4 mg IV Q6H PRN PRN Reason: Nausea And Vomiting Pantoprazole Sodium (Pantoprazole 40 Mg Tab) 40 mg PO BID [facility] Last Admin: 09/24/20 10:38 Dose: 40 mg Documented by: Sodium Chloride (Sodium Chloride 0.9% 10 Ml Flush Syringe) 10 ml IV PRN PRN PRN Reason: LINE FLUSH Tramadol HCl (Tramadol 50 Mg Tab) 50 mg PO Q6H PRN PRN Reason: Pain, Moderate (4-6) Last Admin: 09/24/20 10:38 Dose: 50 mg Documented by: Valsartan (Valsartan 160mg Tab) 160 mg PO DAILY [facility] Last Admin: 09/24/20 10:37 Dose: 160 mg Documented by: Physical Examination Vital Signs Temp Pulse Resp BP Pulse Ox 99.6 F 83 16 124/73 99 09/23/20 20:24 09/23/20 20:24 09/23/20 20:24 09/23/20 20:24 09/23/20 20:24 General appearance: no acute distress HEENT: Positive: PERRL Neck: Positive: trachea midline Cardiac: Positive: Reg Rate and Rhythm Lungs: Positive: Normal Breath Sounds Neuro: Positive: Grossly Intact Extremities: Absent: edema Results 09/24/20 05:48 09/24/20 05:48 Cardiac Enzymes 09/23/20 Range/Units 21:17 AST 14 (5-40) units/L Coagulation 09/23/20 Range/Units 23:33 PT 15.5 H (12.2-14.9) Sec. INR 1.23 H (0.87-1.13) APTT 39.7 H (24.2-36.6) Sec. CBC 09/23/20 09/24/20 Range/Units 21:17 05:48 WBC 18.0 H 17.0 H (4.5-11.0) K/mm3 RBC 4.55 4.09 (3.65-5.03) M/mm3 Hgb 12.4 11.3 (10.1-14.3) gm/dl Hct 37.9 33.6 (30.3-42.9) % Plt Count 457 H 421 (140-440) K/mm3 Lymph # (Auto) 3.2 3.4 (1.2-5.4) K/mm3 [place] # (Auto) 1.0 H 0.9 H (0.0-0.8) K/mm3 Eos # (Auto) 0.2 0.2 (0.0-0.4) K/mm3 Baso # (Auto) 0.1 0.1 (0.0-0.1) K/mm3 Comprehensive Metabolic Panel 09/23/20 09/24/20 Range/Units 21:17 05:48 Sodium 141 139 (137-145) mmol/L Potassium 3.6 3.3 L (3.6-5.0) mmol/L Chloride 101.0 103.2 (98-107) mmol/L Carbon Dioxide 28 27 (22-30) mmol/L BUN 12 11 (7-17) mg/dL Creatinine 0.9 0.8 (0.6-1.2) mg/dL Glucose 116 H 92 (65-100) mg/dL Calcium 9.4 8.8 (8.4-10.2) mg/dL AST 14 (5-40) units/L ALT 9 (7-56) units/L Alkaline Phosphatase 123 (35-129) units/L Total Protein 7.9 (6.3-8.2) g/dL Albumin 4.0 (3.9-5) g/dL Assessment and Plan Musculoskeletal chest pain Hx of 3v CAD - on plavix and aspirin Resolving CMP LVEF 45-50% by echo 2018. Paroxysmal Afib on low dose Eliquis Hx of Right common femoral vein DVT Systemic Hypertension Peripheral vascular disease Hyperlipidemia Will order intravenous Toradol 30 mg, once, for musculoskeletal chest pain. Otherwise, no cardiac workup indicated.
[2020-09-24] MEDS ORDERED: KETOROLAC 30 MG/1 ML INJ IV SCH (12:00)
--- NOTE | 2020-09-24 12:27 | Discharge Summary ---
Providers - Providers Date of Admission: 09/24/20 03:15 Date of discharge: 09/24/20 Attending physician: GALILEA MORGAN 09/24/20 Consult to Cardiac Rehabilitation [CONS] Routine Reason For Exam: Phase I 09/24/20 03:27 Consult to Cardiology [CONS] Routine Consulting Provider: PADMINI CERVANTES Reason For Exam: c/o CP, hx ischemic cardiomyopathy, chf, est pt Primary care physician: WEIGHER ALLOY Hospitalization Condition: Stable Pertinent studies: Chest x-ray, chest CTA Hospital course: 55-year-old -Swiss female with history of HTN, DM, CAD, PVD, CHF, A. fib, DVT, ischemic cardiomyopathy, and V. fib arrest who presented [facility] with complaints of chest pain x4 days. Patient has history of multivessel coronary artery disease. A year and a half ago, she was hospitalized here for ventricular fibrillation arrest, was found with three-vessel coronary disease and ischemic cardiomyopathy with Her left ventricular systolic ejection fraction was reduced at 30 to 35%, but over outpatient follow-up 6 months later had improved to 40 to 45%. During this admission her EKG was normal sinus rhythm, old anterior myocardial infarction, intraventricular conduction delay, no acute ST or T wave changes of ischemia or infarction. Serial troponin levels x3 were negative. Chest x-ray showed mild cardiomegaly, and clear lungs. A CT angiogram of the chest was negative for pulmonary embolism. Cardiology was consulted and Patient's presenting symptoms appeared musculoskeletal, recommend medical therapy as indicated. Patient was given 1 dose of Toradol for her musculoskeletal chest pain and her symptoms significantly improved. Patient was then discharged home in stable condition with outpatient follow-up. Disposition: TO HOME OR SELFCARE Final Discharge Diagnosis (Prints w/discharge instructions): Musculoskeletal chest pain/costochondritis - s/p IV Toradol 30 mg one-time dose. Hx of 3v CAD - on plavix and aspirin. CMP, LVEF 45-50% by echo 2018. Paroxysmal Afib, on low dose Eliquis. Hx of Right common femoral vein DVT. Systemic Hypertension. Peripheral vascular disease. Hyperlipidemia Time spent for discharge: 34 minutes Core Measure Documentation - Palliative Care Palliative Care/ Comfort Measures: Not Applicable - Core Measures Any of the following diagnoses?: none Exam - Physical Exam Narrative exam: GENERAL: well-developed and obese lying on bed appeared to be in no discomfort. HEENT: Normocephalic. Atraumatic. No conjunctival congestion or icterus. Patient has moist mucous membranes. NECK: Supple. Trachea midline. CHEST/LUNGS: Clear to auscultated bilaterally, breathing nonlabored. No wheezes crackles or rhonchi. HEART/CARDIOVASCULAR: Regular in rate and rhythm. S1 and S2 positive. ABDOMEN: Abdomen is soft, nontender. Patient has normal bowel sounds. SKIN: There is no rash. Warm and dry. NEURO: No focal motor deficit. Follows command. MUSCULOSKELETAL: No joint effusion or tenderness. EXTRIMITY: No edema, no cyanosis or clubbing. PSYCH: Cooperative. - Constitutional Vitals: Temp Pulse Resp BP Pulse Ox 98.7 F 70 18 162/101 99 09/24/20 07:58 09/24/20 08:11 09/24/20 07:58 09/24/20 09:21 09/24/20 09:21 Plan Activity: advance as tolerated Weight Bearing Status: Weight Bear as Tolerated Diet: low fat, low salt Follow up with: GALINDO RICHARDSON MD [Primary Care Provider] - 3-5 Days PADMINI CERVANTES MD [Staff Physician] - 7 Days Forms: Work/School Release Form Prescriptions: traMADoL [Ultram 50 MG tab] 50 mg PO Q6H PRN #10 tablet PRN Reason: Pain, Moderate (4-6)
[2020-09-24 12:56] VITALS: BP 116/54
[2020-09-24] MEDS ORDERED: POTASSIUM CHLORIDE ER 20 MEQ TAB PO SCH (13:00)
== END 2020-09-24 16:33 | disposition home or self-care (01) ==
LOC: ED 20:10 → 4A 09-24 03:15
PROVIDERS: ADMIT Hospitalist; ATTEND Internal Medicine
DX: R07.89 Other chest pain (principal); D72.829 Elevated white blood cell count, unspecified; I48.0 Paroxysmal atrial fibrillation; I11.0 Hypertensive heart disease with heart failure; I50.9 Heart failure, unspecified; K21.9 Gastro-esophageal reflux disease without esophagitis; E11.9 Type 2 diabetes mellitus without complications; R06.00 Dyspnea, unspecified; E78.5 Hyperlipidemia, unspecified; I25.10 Atherosclerotic heart disease of native coronary artery without angina pectoris; I25.5 Ischemic cardiomyopathy; Z79.82 Long term (current) use of aspirin; Z79.4 Long term (current) use of insulin; Z86.718 Personal history of other venous thrombosis and embolism; Z79.02 Long term (current) use of antithrombotics/antiplatelets
CPT/HCPCS: 36415; 71046; 71275; 80048; 80053; 81001; 82962; 83036; 83880; 84484; 85025; 85610; 85730; 87040; 93005; 99285; G0378; Q9967

== ENCOUNTER 2021-11-27 10:53 | Inpatient (IN) | payer BC ==
[2021-11-27] MEDS ORDERED: SODIUM CHLORIDE 0.9% 1000 ML 1,000 ML IV ONE ×2 (13:29→16:44)
--- NOTE | 2021-11-27 14:00 | Emergency Department Report ---
HPI - General Chief Complaint: Recheck/Abnormal Lab/Rx PUI?: No Time Seen by Provider: 11/27/21 12:31 - HPI HPI: Patient is a 56-year-old morbidly obese female who presents for evaluation of right groin pain starting since last night. Patient states her symptoms began again acutely when she went to reach for something and felt "a pop" in her right groin. She subsequently developed persistent pain and swelling which is consta nt to her right groin. Patient reports that 4 days ago, she underwent a cardiac catheterization via her right groin in [facility] by Dr. Home Corona alone. Patient reports she is on Eliquis but this was discontinued at the time of her cardiac catheterization and subsequently restarted 1 day later. She last took Eliquis 1 day ago. She denies any chest pain shortness of breath difficulty breathing or palpitations. She is not taking any medication for her pain prior to arrival. Pain currently 8 out of 10. ED Past Medical Hx - Past Medical History Hx Hypertension: Yes Hx Congestive Heart Failure: Yes Hx Diabetes: (MIGUELINA) Hx Deep Vein Thrombosis: No Hx Asthma: (MIGUELINA) Hx COPD: (MIGUELINA) Additional medical history: A-Fib, cardiac arrest - Surgical History Hx Coronary Stent: Yes (x4) Hx Pacemaker: No Hx Internal Defibrillator: No Additional Surgical History: D&C - Social History Smoking Status: Never Smoker Substance Use Type: None - Medications Home Medications: Home Medications Medication Instructions Recorded Confirmed Last Taken Type Aspirin EC [Halfprin EC] 81 mg PO QDAY #30 tablet 12/15/18 09/24/20 09/23/20 Rx AtorvaSTATin [Lipitor] 40 mg PO QHS #30 tablet 12/15/18 09/24/20 09/23/20 Rx Clopidogrel [Plavix] 75 mg PO QDAY #30 tablet 12/15/18 09/24/20 09/23/20 Rx Furosemide [Lasix TAB] 40 mg PO QDAY #30 tablet 12/15/18 09/24/20 09/23/20 Rx ISOSORBIDE MONOnitrate [Imdur ER] 30 mg PO QDAY #30 tablet 12/15/18 09/24/20 Rx Pantoprazole [Protonix TAB] 40 mg PO QDAY #30 tablet 12/15/18 09/24/20 09/23/20 Rx cilostazoL [Pletal] 75 mg PO BID #60 tablet 12/15/18 09/24/20 09/23/20 Rx Apixaban [Eliquis] 2.5 mg PO BID 07/02/19 09/24/20 09/23/20 History NIFEdipine XL [Procardia Xl] 60 mg PO QDAY #30 tablet 07/04/19 09/24/20 09/23/20 Rx Valsartan [Diovan] 1 tab PO DAILY 09/24/20 09/24/20 09/23/20 History traMADoL [Ultram 50 MG tab] 50 mg PO Q6H PRN #10 tablet 09/24/20 Unknown Rx ED Review of Systems ROS: Stated complaint: POST OPP COMPLICATION Other details as noted in HPI Comment: All other systems reviewed and negative Constitutional: no symptoms reported Gastrointestinal: denies: abdominal pain, nausea, vomiting, diarrhea, constipation, hematemesis, melena Genitourinary: other (Right groin pain and swelling and redness). denies: urgency, dysuria, frequency, hematuria, discharge, abnormal menses, dyspareunia Musculoskeletal: denies: back pain, joint swelling, arthralgia Skin: denies: rash, lesions, change in color, change in hair/nails, pruritus Neurological: denies: headache, weakness, numbness, paresthesias, confusion, abnormal gait Psychiatric: denies: anxiety, depression, auditory hallucinations, visual hallucinations, homicidal thoughts, suicidal thoughts Hematological/Lymphatic: easy bleeding, easy bruising, swollen glands Physical Exam - Physical Exam Vital Signs: Vital Signs 11/27/21 11/27/21 11/27/21 11:28 12:18 12:21 Temperature 98.6 F 98.4 F Pulse Rate 62 62 47 L Respiratory 18 10 L 20 Rate Blood Pressure 118/74 Blood Pressure 152/83 118/74 [Left] O2 Sat by Pulse 100 100 Oximetry 11/27/21 11/27/21 11/27/21 12:31 12:38 12:45 Temperature Pulse Rate 50 L 53 L Respiratory 12 20 15 Rate Blood Pressure 129/56 129/56 Blood Pressure [Left] O2 Sat by Pulse 99 100 99 Oximetry General: Gen: pt is well appearing, no acute distress, patient is very loquacious, speaking in full sentences, no drooling no stridor no respiratory distress, nontoxic-appearing HEENT: Normocephalic atraumatic pupils equally round and reactive to light extraocular muscles intact sclera anicteric Neck: Full range of motion, no midline spinal tenderness palpation, no JVD, no carotid bruits, no nuchal rigidity CVS: S1-S2 regular rate and rhythm with no gallops rubs or murmurs, chest wall nontender Pulmonary: Clear to auscultation bilaterally, no wheezes rales or rhonchi Abdomen: Soft nondistended nontender no guarding or rebound tenderness, no pal pable deformities or step-offs, normal active bowel sounds, no hepatosplenomegaly, no pulsatile masses : Patient noted to have firm area of induration, ecchymosis located to her right groin, difficult to palpate femoral pulse, there are no open wounds, there is no bleeding, there is no extravasation, there is no evidence of acute trauma or infection, skin to perineum is grossly unremarkable, no Wilner's gangrene, no crepitus Extremities: No cyanosis no clubbing no edema, intact distal peripheral pulses, Integumentary: Skin normal, no petechia no purpura no abscess no lacerations no evidence of trauma no evidence of infection Neuro: Patient is awake alert and oriented to person place time situation, mentating well, cranial nerves II through XII intact, no focal neurodeficits, sensation grossly tact Psych: Calm cooperative, mood affect normal ED Course Vital Signs 11/27/21 11/27/21 11/27/21 11:28 12:18 12:21 Temperature 98.6 F 98.4 F Pulse Rate 62 62 47 L Respiratory 18 10 L 20 Rate Blood Pressure 118/74 Blood Pressure 152/83 118/74 [Left] O2 Sat by Pulse 100 100 Oximetry 11/27/21 11/27/21 11/27/21 12:31 12:38 12:45 Temperature Pulse Rate 50 L 53 L Respiratory 12 20 15 Rate Blood Pressure 129/56 129/56 Blood Pressure [Left] O2 Sat by Pulse 99 100 99 Oximetry - Reevaluation(s) Reevaluation #1: 11/27/21 14:02 Patient is comfortable and well-appearing. Plan of care discussed at length with the patient. She denies any worsening pain or evolving symptoms. - Consultations Consultation #1: 11/27/21 15:[address] Nino, vascular surgeon. Case reviewed with him. He will come in to see the patient and review the images to ascertain whether or not the patient requires emergent surgery at. He advises that the patient undergo CT angio with runoff to ascertain that there is no damage to her femoral artery below the area of active extravasation. 1539: I called CT. Call Specialist informed by me that the patient emergently needs CT angio with runoff per request of vascular surgeon, Dr. Nino. Call Specialist verbalized that she will come to retrieve the patient for CT imaging 1540: I went to reassess the patient directly. She reports that her groin feels tense and that she feels as though the swelling has worsened and pain is worsened. She is neurovascularly intact. Intact DP PT pulses in right lower extremity, less than 2-second capillary refill in toes or right lower extremity. Right lower extremities grossly unremarkable 11/27/21 17:42 Per my discussion with Dr. Nino, the area of extravasation is tense and tight and per my assessment this site has worsened with respect to ecchymosis and edema. He advises that direct pressure be applied to the pt's groin by a staff member. Pt's RN, Sulaiman, given verbal directive by me to perform this measure. . Consultation #2: 11/27/21 18:[id number] Nino, vascular surgeon. He reports he reviewed the patient's images. He does not believe that the patient has excused extravasation requiring emergent surgery at this time. 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 He advises that the patient undergo direct pressure to the area of hematoma for 15 minutes, and then subsequently a pressure dressing applied. If the patient's hematoma remains persistent or if it worsens, patient will undergo emergent treatment by him in the operating room. Patient's nurse, Sulaiman, was instructed by me to apply direct pressure and subsequently apply pressure dressing ED Medical Decision Making - Lab Data Result diagrams: 11/27/21 16:47 11/27/21 13:12 - Radiology Data Radiology results: report reviewed Critical care attestation.: If time is entered above; I have spent that time in minutes in the direct care of this critically ill patient, excluding procedure time. ED Disposition Clinical Impression: Extravasation of blood, Femoral artery aneurysm, right Disposition: 09 ADMITTED INPATIENT Is pt being admited?: Yes Does the pt Need Aspirin: No Condition: Stable
[2021-11-27 14:12] LABS: Basophils # (Auto) 0.2 K/mm3 (0.0-0.1); Eosinophils # (Auto) 0.1 K/mm3 (0.0-0.4); Eosinophils % (Auto) 0.8 % (0.0-4.3); Hematocrit 34.7 % (30.3-42.9); Hemoglobin 11.2 gm/dl (10.1-14.3); Lymphocytes # (Auto) 2.9 K/mm3 (1.2-5.4); Lymphocytes % (Auto) 18.5 % (13.4-35.0); Mean Corpuscular HGB Conc 32 % (30-34); Mean Corpuscular Volume 84 fl (79-97); Monocytes # (Auto) 0.9 K/mm3 (0.0-0.8); Monocytes % (Auto) 5.7 % (0.0-7.3); Platelet Count 331 K/mm3 (140-440); Red Blood Count 4.14 M/mm3 (3.65-5.03); Red Cell Distribution Width 16.3 % (13.2-15.2)
[2021-11-27 14:18] LABS: INR 1.21 (0.87-1.13)
[2021-11-27 14:19] LABS: Partial Thromboplastin Time 30.7 Sec. (24.2-36.6)
[2021-11-27 14:42] LABS: Alanine Aminotransferase 13 units/L (7-56); Albumin 3.1 g/dL (3.9-5); BUN/Creatinine Ratio 19; Blood Urea Nitrogen 15 mg/dL (7-17); Calcium 8.8 mg/dL (8.4-10.2); Hemolysis Index 119
--- NOTE | 2021-11-27 15:47 | Cat Scan Report ---
CT angio pelvis INDICATION / CLINICAL INFORMATION: R groin pain/swelling s/p cath; eval for femoral. TECHNIQUE: Axial CT images of the pelvis obtained after administration of 100 mL of Omnipaque 350 IV contrast. 3 plane MIP and/or 3D reconstructions were produced. All CT scans at this location are perf ormed using CT dose reduction for ALARA by means of automated exposure control. COMPARISON: None FINDINGS: Vascular: 5.8 x 4.2 x 5.8 cm hematoma in the right inguinal region with focal active extravasation. Active hemo rrhage measures approximately 3.4 cm in greatest axial dimension (series 2 image 72). This arises fro m the right common femoral artery (series 2 image 73). Distal right femoral artery branches are paten t. Bilateral common iliac, internal iliac, and external iliac arteries are also patent. Other incidental findings: Calcified uterine fibroid. Mild colonic diverticulosis. Visualized bowel d emonstrates no evidence of inflammation or obstruction. Normal appendix. No intraperitoneal free air or free fluid. No acute osseous findings. IMPRESSION: 1. 5.8 cm right inguinal hematoma with active extravasation arising from the right common femoral art jerel, as above. CRITICAL RESULT: Time of Discovery (REAL ESTATE ADMINISTRATOR/CDT): 11/27/2021 at 2:40 PM Time of Communication (REAL ESTATE ADMINISTRATOR/CDT): 2:42 PM Licensed Practitioner Receiving Report: APURVA Hilario Read-Back Performed: Yes. Signer Name: Baron Quinn MD Signed: 11/27/2021 3:43 PM Workstation Name: [employer]
[2021-11-27] MEDS ORDERED: MORPHINE 4 MG/1 ML INJ IV ONE (16:54)
[2021-11-27 17:10] LABS: Basophils # (Auto) 0.1 K/mm3 (0.0-0.1); Basophils % (Auto) 0.9 % (0.0-1.8); Eosinophils # (Auto) 0.2 K/mm3 (0.0-0.4); Eosinophils % (Auto) 1.2 % (0.0-4.3); Hematocrit 31.7 % (30.3-42.9); Hemoglobin 10.1 gm/dl (10.1-14.3); Lymphocytes # (Auto) 2.7 K/mm3 (1.2-5.4); Lymphocytes % (Auto) 18.9 % (13.4-35.0); Mean Corpuscular HGB Conc 32 % (30-34); Mean Corpuscular Volume 83 fl (79-97); Monocytes # (Auto) 0.9 K/mm3 (0.0-0.8); Monocytes % (Auto) 6.3 % (0.0-7.3); Platelet Count 341 K/mm3 (140-440); Red Cell Distribution Width 16.2 % (13.2-15.2)
--- NOTE | 2021-11-27 17:39 | History and Physical Report ---
History of Present Illness Chief complaint: My leg hurts, is swollen and I can hardly move it History of present illness: 56 YO Female with Systolic CHF, S/P Cardiac Arrest, HTN, HLD, PVD, CAD S/P Stent Placement, Atrial Fib, DVT on Therapeutic Anticoagulation presents to ED for evaluation. Pt reports "my leg hurts it is swollen and I can hardly move it". Patient states that she has experienced pain in her groin overnight. Patient states "I felt a pop" and after that my leg began to swell. Patient states that she underwent a cardiac catheter via her right groin in [facility] by Dr. Home Corona. Patient transported to [facility] via private vehicle for further care and evaluation of the aforementioned symptoms. The patient was seen and evaluated in the emergency department. All lab and imaging studies reviewed. Patient underwent CT angio with runoffs and was found to have right femoral artery injury complicated by right femoral artery hemorrhage with expanding hematoma with suspicion for development of compartment syndrome. Vascular surgery team consulted in ED. Patient admitted to IMCU due to increased risk of worsening symptoms and for medical stabilization. Patient denies fever, chills, chest pain, palpitation, productive cough, skin rash, recent contact, known exposure to COVID-19. Prior admission on 09/24/2020 reviewed. All medication listed at time of admission as reconciled. Advanced care planning conducted in ED. Past History Past Medical History: atrial fib, DVT, heart failure, hypertension, hyperlipidemia, other (See HPI) Past Surgical History: Other (Cardiac cath) Social history: single. denies: smoking, alcohol abuse, prescription drug abuse Family history: diabetes, hypertension Medications and Allergies Allergies Allergy/AdvReac Type Severity Reaction Status Date / Time No Known Allergies Allergy Verified 09/24/20 00:03 Home Medications Medication Instructions Recorded Confirmed Last Taken Type Aspirin EC [Halfprin EC] 81 mg PO QDAY #30 tablet 12/15/18 09/24/20 09/23/20 Rx AtorvaSTATin [Lipitor] 40 mg PO QHS #30 tablet 12/15/18 09/24/20 09/23/20 Rx Clopidogrel [Plavix] 75 mg PO QDAY #30 tablet 12/15/18 09/24/20 09/23/20 Rx Furosemide [Lasix TAB] 40 mg PO QDAY #30 tablet 12/15/18 09/24/20 09/23/20 Rx ISOSORBIDE MONOnitrate [Imdur ER] 30 mg PO QDAY #30 tablet 12/15/18 09/24/20 09/23/20 Rx Pantoprazole [Protonix TAB] 40 mg PO QDAY #30 tablet 12/15/18 09/24/20 09/23/20 Rx cilostazoL [Pletal] 75 mg PO BID #60 tablet 12/15/18 09/24/20 09/23/20 Rx Apixaban [Eliquis] 2.5 mg PO BID 07/02/19 09/24/20 09/23/20 History NIFEdipine XL [Procardia Xl] 60 mg PO QDAY #30 tablet 07/04/19 09/24/20 09/23/20 Rx Valsartan [Diovan] 1 tab PO DAILY 09/24/20 09/24/20 09/23/20 History traMADoL [Ultram 50 MG tab] 50 mg PO Q6H PRN #10 tablet 09/24/20 Unknown Rx Active Meds: Active Medications Sodium Chloride (Nacl 0.9% 1000 Ml) 1,000 mls @ 999 mls/hr IV BOLUS ONE Stop: 11/27/21 17:44 Last Admin: 11/27/21 16:48 Dose: 999 mls/hr Review of Systems Constitutional: no weight loss, no weight gain, no fever, no chills Ears, nose, mouth and throat: no ear pain, no ear discharge, no decreased hearing Cardiovascular: no chest pain, no syncope, no lightheadedness Respiratory: no cough, no cough with sputum, no hemoptysis Gastrointestinal: no abdominal pain, no vomiting, no constipation, no hematemesis Genitourinary Female: no pelvic pain, no flank pain, no dysuria, no urinary frequency, no urgency Rectal: no pain, no incontinence, no bleeding Musculoskeletal: other Integumentary: no rash, no pruritis, no redness, no sores Neurological: no head injury, no paralysis, no parathesias, no numbness, no tingling, no seizures, no syncope Psychiatric: no anxiety, no change in sleep habits, no insomnia, no change in appetite, no suicidal ideation Endocrine: no cold intolerance, no polyphagia, no polydipsia, no nocturia, no flushing Hematologic/Lymphatic: no easy bruising, no easy bleeding Allergic/Immunologic: no urticaria, no wheezing Exam - Constitutional Vitals: Temp Pulse Resp BP Pulse Ox 98.4 F 64 14 133/51 100 11/27/21 12:21 11/27/21 17:01 11/27/21 17:01 11/27/21 17:01 11/27/21 17:01 General appearance: Present: mild distress, obese - EENT Eyes: Present: PERRL ENT: hearing intact, clear oral mucosa - Neck Neck: Present: supple, normal ROM - Respiratory Respiratory effort: normal Respiratory: bilateral: CTA - Cardiovascular Heart Sounds: Present: S1 & S2. Absent: rub, click - Extremities Extremities: pulses symmetrical, No edema Extremity abnormal: edema, erythema, tenderness, other (Right groin fluctuance, erythema, edema,) Peripheral Pulses: abnormal - Abdominal General gastrointestinal: Present: soft, non-tender, non-distended, normal bowel sounds Female genitourinary: Present: normal - Integumentary Integumentary: Present: clear, warm, dry - Musculoskeletal Musculoskeletal: gait normal, strength equal bilaterally - Psychiatric Psychiatric: appropriate mood/affect, intact judgment & insight - Neurologic Neurologic: CNII-XII intact, moves all extremities Results - Labs CBC & Chem 7: 11/27/21 16:47 11/27/21 13:12 Labs: Abnormal lab results 11/27/21 11/27/21 11/27/21 Range/Units 13:12 13:12 13:13 WBC 16.0 H (4.5-11.0) K/mm3 MCH 27 L (28-32) pg RDW 16.3 H (13.2-15.2) % Swift # (Auto) 0.9 H (0.0-0.8) K/mm3 Baso # (Auto) 0.2 H (0.0-0.1) K/mm3 Seg Neutrophils % 74.0 H (40.0-70.0) % Seg Neutrophils # 11.8 H (1.8-7.7) K/mm3 PT 16.7 H (12.2-14.9) Sec. INR 1.21 H (0.87-1.13) Chloride 107.6 H (98-107) mmol/L Albumin 3.1 L (3.9-5) g/dL 07/22/22 Range/Units 16:47 WBC 14.2 H (4.5-11.0) K/mm3 MCH 27 L (28-32) pg RDW 16.2 H (13.2-15.2) % Swift # (Auto) 0.9 H (0.0-0.8) K/mm3 Baso # (Auto) (0.0-0.1) K/mm3 Seg Neutrophils % 72.7 H (40.0-70.0) % Seg Neutrophils # 10.3 H (1.8-7.7) K/mm3 PT (12.2-14.9) Sec. INR (0.87-1.13) Chloride (98-107) mmol/L Albumin (3.9-5) g/dL Assessment and Plan - Patient Problems (1) Femoral artery aneurysm, right Current Visit: Yes Status: Acute Plan to address problem: Serial vascular exam, CT angio with runoff, vascular surgery consulted, repeat physical exam due to concern regarding developing compartment syndrome, patient pending surgical intervention as per vascular surgery team, supportive care, (2) SIRS (systemic inflammatory response syndrome) Current Visit: Yes Status: Acute Plan to address problem: Empiric IV antibiotic therapy, CBC, repeat CBC in AM. (3) Obesity hypoventilation syndrome Current Visit: Yes Status: Acute Plan to address problem: Balanced diet, increase physical activity discharge, outpatient pulmonary follow-up for sleep study. (4) Atrial fibrillation Current Visit: No Status: Acute Qualifiers: Atrial fibrillation type: longstanding persistent Qualified Code(s): I48.11 - Longstanding persistent atrial fibrillation Plan to address problem: Rate control, hold anticoagulation at this time due to vascular injury and pending surgical intervention. Consider reinitiation of therapeutic anticoagulation within 24 hours postoperation (5) HLD (hyperlipidemia) Current Visit: No Status: Acute Qualifiers: Hyperlipidemia type: mixed hyperlipidemia Qualified Code(s): E78.2 - Mixed hyperlipidemia Plan to address problem: Statin therapy, supportive care, low-cholesterol diet (6) HTN (hypertension) Current Visit: No Status: Acute Qualifiers: Hypertension type: primary hypertension Qualified Code(s): I10 - Essential (primary) hypertension Plan to address problem: Monitor blood pressure every shift, continue medical management. (7) History of DVT (deep vein thrombosis) Current Visit: Yes Status: Acute Plan to address problem: SCDs bilateral lower extremities while in bed, hold anticoagulation at this time due to high risk for recurrent bleeding. (8) DVT prophylaxis Current Visit: No Status: Acute Plan to address problem: SCD to bilateral lower extremities while in bed (9) Advance care planning Current Visit: Yes Status: Acute Plan to address problem: Disease education done, care plan discussed, diagnoses discussed, prognosis discussed, patient is full code. Patient knowledges understanding agreement with care plan, +30 minutes. (10) Preventative health care Current Visit: Yes Status: Acute Plan to address problem: Patient counseled regarding balanced diet, weight reduction, risk factor reduction, outpatient follow-up with bariatric surgery, patient to follow-up with primary care physician for all age and risk factor appropriate screening test. +30 minutes.
[2021-11-27] MEDS ORDERED: HYDROmorphone 0.5 MG/0.5 ML INJ IV PRN (17:41)
[2021-11-27] MEDS ORDERED: ACETAMINOPHEN 325 MG TAB PO PRN (17:41)
[2021-11-27] MEDS ORDERED: ALBUTEROL 2.5 MG/3 ML NEBU IH PRN (17:41)
--- NOTE | 2021-11-27 18:07 | Cat Scan Report ---
CTA ABDOMEN, PELVIS, AND LOWER EXTREMITIES WITH CONTRAST INDICATION / CLINICAL INFORMATION: runoff requested by Dr. Angélica landry. TECHNIQUE: Axial CT images were obtained through the abdomen, pelvis and lower extremities after inje ction of 100 cc of Omnipaque 350 IV contrast. 3 plane MIP / 3D reconstructions were produced. All CT scans at this location are performed using CT dose reduction for ALARA by means of automated exposure control. COMPARISON: 11/27/2021 FINDINGS: CTA ABDOMEN: Abdominal Aorta: Mild atherosclerotic disease without stenosis Celiac Artery: There is a severe stenosis at the origin Superior Mesenteric Artery: There is mild plaque in the mid SMA without hemodynamically significant s tenosis identified. Right Renal Artery: Breathing motion artifact obscures proximal vessel no significant stenosis is tio ntified within the limits of this study. Left Renal Artery: No significant abnormality. Inferior Mesenteric Artery: There is a stenosis at the origin which may be hemodynamically significan t CTA PELVIS: RIGHT: - Common Iliac Artery: There is mild plaque without significant stenosis. - Internal Iliac Artery: There is mild plaque without significant stenosis. - External Iliac Artery: No significant abnormality. LEFT: - Common Iliac Artery: There is mild plaque without significant stenosis. - Internal Iliac Artery: There is mild plaque without significant stenosis. - External Iliac Artery: No significant abnormality. CTA LOWER EXTREMITIES: RIGHT LOWER EXTREMITY: - Common Femoral Artery: Pseudoaneurysm arising from the right common femoral artery is again noted. There is active extravasation of contrast into the pseudoaneurysm. There is hematoma in the subcutane ous fat in the right groin. - Superficial Femoral Artery: There is mild scattered plaque without significant stenosis. - Profunda Femoral Artery: No significant abnormality. - Popliteal Artery: No significant abnormality. - Anterior Tibial Artery: No significant abnormality. - Tibioperoneal Trunk: No significant abnormality. - Posterior Tibial Artery: No significant abnormality. - Peroneal Artery: No significant abnormality. - Ankle runoff: Three vessel. LEFT LOWER EXTREMITY: - Common Femoral Artery: No significant abnormality. - Superficial Femoral Artery: There is a stenosis at the origin which results in a greater than 50% d iameter reduction. The vessel is small multiple calcific plaques. There are stenoses in the distal hanna perficial femoral artery which also appear to be greater than 50% diameter reduction. The stenosis at the origin is likely hemodynamically significant. The stenoses in the distal vessel May BE significa nt. - Profunda Femoral Artery: No significant abnormality. - Popliteal Artery: No significant abnormality. - Anterior Tibial Artery: No significant abnormality. - Tibioperoneal Trunk: No significant abnormality. - Posterior Tibial Artery: No significant abnormality. - Peroneal Artery: No significant abnormality. - Ankle runoff: Three vessel. NONTARGET STRUCTURES: ABDOMEN:No acute abnormality. The liver, spleen, pancreas, adrenal glands, and kidneys show no acute abnormality. There is no obstruction, inflammation, or free air. PELVIS:No acute abnormality. Uterine fibroid is noted. There is no obstruction, inflammation, or free air. LOWER EXTREMITIES:Right groin pseudoaneurysm and hematoma as described above. SKELETAL: No acute abnormality. ADDITIONAL FINDINGS: None. IMPRESSION: 1. There is a persistent right groin pseudoaneurysm with active extravasation of contrast into it. Th ere is hematoma in the right groin. The overall appearance is similar to the study performed earlier today at 1500 hours Signer Name: Paul Mendez MD Signed: 11/27/2021 6:02 PM Workstation Name: [email or web address]
--- NOTE | 2021-11-27 19:03 | Event Note ---
Date: 11/27/21 Consulted regarding a right femoral artery hemorrhage. Patient with a history of cardiac cath on Tuesday with development of enlarging hematoma beginning today. CTA reviewed which demonstrates a bilobed pseudoaneurysm with each lobe measuring 1.5 cm in axial dimension with surrounding hematoma. These originate from a 1 mm neck arising from the anterior surface of the common femoral artery. Runoff demonstrates no restriction of flow. Advised ER to hold pressure for 15 minutes above the affected area and apply a pressure dressing. Will order a vascular ultrasound tomorrow to determine if compression has thrombosed the pseudoaneurysm. If not, the patient may benefit from US guided thrombin injection. Would admit to medicine and consult cardiology as well given patients recent cardiac cath for additional recommendations.
[2021-11-27] MEDS ORDERED: CILOSTAZOL 100 MG TAB PO SCH (22:00)
--- NOTE | 2021-11-27 22:40 | Event Note ---
Date: 11/27/21 Recieved phone call from IMCU nurse. I had instructed ER to hold pressure on the patients groin and then apply a pressure dressing. This was not done. The IMCU nurse is willing to hold pressure for 15 minutes and then apply a pressure dressing.
[2021-11-27 23:52] LABS: Hematocrit 31.4 % (30.3-42.9); Hemoglobin 10.2 gm/dl (10.1-14.3)
[2021-11-28 05:44] LABS: Basophils # (Auto) 0.1 K/mm3 (0.0-0.1); Basophils % (Auto) 0.5 % (0.0-1.8); Eosinophils # (Auto) 0.2 K/mm3 (0.0-0.4); Eosinophils % (Auto) 1.6 % (0.0-4.3); Hematocrit 32.6 % (30.3-42.9); Hemoglobin 10.3 gm/dl (10.1-14.3); Lymphocytes # (Auto) 2.6 K/mm3 (1.2-5.4); Lymphocytes % (Auto) 17.7 % (13.4-35.0); Mean Corpuscular HGB Conc 32 % (30-34); Mean Corpuscular Volume 84 fl (79-97); Monocytes # (Auto) 0.9 K/mm3 (0.0-0.8); Monocytes % (Auto) 6.4 % (0.0-7.3); Platelet Count 324 K/mm3 (140-440); Red Cell Distribution Width 16.3 % (13.2-15.2)
[2021-11-28 05:49] LABS: BUN/Creatinine Ratio 13; Blood Urea Nitrogen 10 mg/dL (7-17); Calcium 8.2 mg/dL (8.4-10.2); Hemolysis Index 6
[2021-11-28] MEDS ORDERED: POTASSIUM CHLORIDE ER 20 MEQ TAB PO SCH (08:30)
--- NOTE | 2021-11-28 09:51 | Progress Note ---
<TOYA MILES - Last Filed: 11/28/21 16:36> Assessment and Plan Assessment and plan: This is a 56-year-old female with known past medical history of HTN, HLD, PVD, cardiac arrest, CHF, CAD, ME s/p X4 stents placement, paroxysmal atrial fibrillation and DVT was on antiplatelets and therapeutic anticoagulation at home, s/p recent LHC on 11/23/2021 via right groin presented with right femoral artery hemorrhage/hematoma which started 1 day prior admit. Hospital Course to Date: 11/28: Patient stable on RA this am. SB, HR in the 30s-50s this am, BP stable. Right groin hematoma with pressure dressing noted. RLE arterial doppler pending. Vascular Surgery on consult. Keep patient NPO for now for possible procedure. Cardiology also consulted for cardiac eval. Assessment and Plan #Common Femoral Artery Pseudoaneurysm, Right #Right femoral artery hemorrhage/hematoma - Presented with right femoral artery hemorrhage/hematoma which started 1 day prior admit. - per patient, recent LHC on 11/23/2021 via right groin in [facility] by Dr. Home Corona - LHC site was normal post procedure until she felt a pop while getting dress for her daughter's wedding - CTA revealed right femoral artery injury complicated by right femoral artery hemorrhage with expanding hematoma with suspicion for development of compartment syndrome. - Vascular Surgery consulted, appreciated recommendations - Right groin hematona with pressure dressing noted - RLE arterial doppler pending - Keep patient NPO for now for possible procedure - Continue vascular exam per protocol #Bradycardia #Paroxysmal Atrial Fibrillation #HTN (Hypertension) #HLD (Hyperlipidemia) #H/o Congestive Heart Failure(CHF), not in exacerbation - SB, HR in the 30 to 50s this am, BP stable - Per ECG trend periods of bradyarrhytmia also noted - 12 lead EKG revealed SB, with no significant ST changes - Patient is s/p recent LHC on 11/23/2021 [facility] by Dr. Home Corona. Per patient LHC was normal - Cardiology consulted - Home statin and antihypertensives resumed - Continue blood pressure monitor per protocol - Maintain SBP less than 160 - Hold AC and antiplatelets for now. Resume meds once okay by Vascular Surgery - Resume home lasix - Strick I&Os and Daily weight #SIRS (Systemic Inflammatory Response Syndrome) - Presented with Leukocytosis and tachypnea. No fevers, HR less than 60, BP stable - Probably reactive to above - Will continue to monitor for now - Panculture if patient is febrile. Hold off on IV abx for now - Continue to trend CBC #Obesity Hypoventilation Syndrome - Balanced diet, increase physical activity discharge, outpatient pulmonary follow-up for sleep study. #History of DVT (Deep Vein Thrombosis) - SCDs bilateral lower extremities while in bed - Hold anticoagulation at this time due to high risk for recurrent bleeding. #GI/DVT Prophylaxis - PPI- Protonix - SCD to bilateral lower extremities while in bed #Advance Care Planning - Disease education data, care plan, diagnoses, and prognosis were discussed with the patient at the bedside. Patient is a FULL code. Patient acknowledged understanding and agreed with current care plan. The high probability of a clinically significant, sudden or life threatening deterioration of the [multiple] system(s) required my full and direct attention, intervention and personal management. The aggregate critical care time was [60] minutes. This time is in addition to time spent performing reported procedures but includes the following: [x] Data Review and interpretation [x] Patient assessment and monitoring of vital signs [x] Documentation [x] Medication orders and management Disposition Plan: IMCU Total Time Spent with Patient (Minutes): 60 History Interval history: Patient seen and examined at the bedside. Fully AAO, on RA, c/p of right groin soreness. Right groin hematoma with pressure dressing noted. SB noted on the monitor this am, HR in the high 30 to 50s. Patient is asymptomatic, BP stable Hospitalist Physical - Constitutional Vitals: Temp Pulse Resp BP Pulse Ox 98.2 F 56 L 21 142/54 95 11/28/21 04:00 11/28/21 07:01 11/28/21 07:01 11/28/21 07:01 11/28/21 07:01 General appearance: Present: no acute distress, well-nourished, obese - EENT Eyes: Present: PERRL, EOM intact ENT: hearing intact, clear oral mucosa - Neck Neck: Present: normal ROM - Respiratory Respiratory effort: normal Respiratory: bilateral: diminished - Cardiovascular Rhythm: regular Heart Sounds: Present: S1 & S2 - Extremities Extremities: no ischemia, pulses intact, pulses symmetrical, abnormal (Right groin hematoma. Pressure dressing present) Extremity abnormal: edema - Peripheral Assessment Generalized Edema Type: Non-pitting Edema Degree: 1+ Capillary Refill: < 3 seconds Skin Temperature: Warm Peripheral Pulses: within normal limits - Abdominal General gastrointestinal: soft, non-distended, normal bowel sounds - Integumentary Integumentary: Present: warm, dry - Psychiatric Psychiatric: appropriate mood/affect, cooperative - Neurologic Neurologic: CNII-XII intact, moves all extremities - Allied Health Allied health notes reviewed: nursing Results - Labs CBC & Chem 7: 11/28/21 04:55 11/28/21 04:55 Labs: Laboratory Last Values WBC 14.4 K/mm3 (4.5-11.0) H 11/28/21 04:55 RBC 3.90 M/mm3 (3.65-5.03) 11/28/21 04:55 Hgb 10.3 gm/dl (10.1-14.3) 11/28/21 04:55 Hct 32.6 % (30.3-42.9) 11/28/21 04:55 MCV 84 fl (79-97) 11/28/21 04:55 MCH 27 pg (28-32) L 11/28/21 04:55 MCHC 32 % (30-34) 11/28/21 04:55 RDW 16.3 % (13.2-15.2) H 11/28/21 04:55 Plt Count 324 K/mm3 (140-440) 11/28/21 04:55 Lymph % (Auto) 17.7 % (13.4-35.0) 11/28/21 04:55 [place] % (Auto) 6.4 % (0.0-7.3) 11/28/21 04:55 Eos % (Auto) 1.6 % (0.0-4.3) 11/28/21 04:55 Baso % (Auto) 0.5 % (0.0-1.8) 11/28/21 04:55 Lymph # (Auto) 2.6 K/mm3 (1.2-5.4) 11/28/21 04:55 [place] # (Auto) 0.9 K/mm3 (0.0-0.8) H 11/28/21 04:55 Eos # (Auto) 0.2 K/mm3 (0.0-0.4) 11/28/21 04:55 Baso # (Auto) 0.1 K/mm3 (0.0-0.1) 11/28/21 04:55 Seg Neutrophils % 73.8 % (40.0-70.0) H 11/28/21 04:55 Seg Neutrophils # 10.6 K/mm3 (1.8-7.7) H 11/28/21 04:55 PT 16.7 Sec. (12.2-14.9) H 11/27/21 13:13 INR 1.21 (0.87-1.13) H 11/27/21 13:13 APTT 30.7 Sec. (24.2-36.6) 11/27/21 13:13 Sodium 143 mmol/L (137-145) 11/28/21 04:55 Potassium 3.4 mmol/L (3.6-5.0) L D 11/28/21 04:55 Chloride 108.1 mmol/L (98-107) H 11/28/21 04:55 Carbon Dioxide 24 mmol/L (22-30) 11/28/21 04:55 Anion Gap 14 mmol/L 11/28/21 04:55 BUN 10 mg/dL (7-17) 11/28/21 04:55 Creatinine 0.8 mg/dL (0.6-1.2) 11/28/21 04:55 Estimated GFR > 60 ml/min 11/28/21 04:55 BUN/Creatinine Ratio 13 % 11/28/21 04:55 Glucose 88 mg/dL (65-100) 11/28/21 04:55 Calcium 8.2 mg/dL (8.4-10.2) L 11/28/21 04:55 Total Bilirubin 0.40 mg/dL (0.1-1.2) 11/27/21 13:12 AST 21 units/L (5-40) 11/27/21 13:12 ALT 13 units/L (7-56) 11/27/21 13:12 Alkaline Phosphatase 76 units/L (35-129) 11/27/21 13:12 Total Protein 6.7 g/dL (6.3-8.2) 11/27/21 13:12 Albumin 3.1 g/dL (3.9-5) L 11/27/21 13:12 Albumin/Globulin Ratio 0.9 % 11/27/21 13:12 Rosas/IV: Voiding Method Bedpan Active Medications - Current Medications Current Medications: Generic Name Dose Route Start Last Admin Trade Name Freq PRN Reason Stop Dose Admin Acetaminophen 650 mg 11/27/21 17:41 Acetaminophen 325 Mg Tab PO Q6H PRN Pain MILD(1-3)/Fever >100.5/TORRES Albuterol 2.5 mg 11/27/21 17:41 Albuterol 2.5 Mg/3 Ml Nebu IH Q3HRT PRN Shortness Of Breath Atorvastatin Calcium 40 mg 11/27/21 22:00 11/27/21 23:40 Atorvastatin 40 Mg Tab PO 40 mg QHS DC Administration Furosemide 40 mg 11/28/21 10:00 Furosemide 40 Mg Tab PO QDAY DC Hydromorphone HCl 0.5 mg 11/27/21 17:41 Hydromorphone 0.5 Mg/0.5 Ml Inj IV Q8H PRN Pain , Severe (7-10) Isosorbide Mononitrate 30 mg 11/28/21 10:00 Isosorbide Mononitrate Er 30 Mg Tab PO QDAY DC Nifedipine 60 mg 11/28/21 10:00 Nifedipine Xl 60 Mg Tab PO QDAY DC Oxycodone/Acetaminophen 1 tab 11/27/21 17:41 Oxycodone /Acetaminophen 5-325mg Tab PO Q6H PRN Pain, Moderate (4-6) Pantoprazole Sodium 40 mg 11/28/21 10:00 Pantoprazole 40 Mg Tab PO QDAY DC Potassium Chloride 40 meq 11/28/21 08:30 Potassium Chloride Er 20 Meq Tab PO 11/28/21 12:30 ONCE@0830 DC Sodium Chloride 10 ml 11/27/21 22:00 11/27/21 23:40 Sodium Chloride 0.9% 10 Ml Flush Syringe IV 10 ml BID DC Administration Sodium Chloride 10 ml 11/27/21 17:41 Sodium Chloride 0.9% 10 Ml Flush Syringe IV PRN PRN LINE FLUSH Valsartan 160 mg 11/28/21 10:00 Valsartan 160mg Tab PO DAILY [facility] <MILANA ACE - Last Filed: 11/29/21 07:12> Assessment and Plan Assessment and plan: I saw and evaluated the patient. I agree with the findings and the plan of care as documented in the Nurse Practitioner's~note, with the following corrections and additions. Hospitalist Physical - Constitutional Vitals: Temp Pulse Resp BP Pulse Ox 98.8 F 156 H 17 145/106 100 11/29/21 03:20 11/29/21 06:41 11/29/21 06:41 11/29/21 06:41 11/29/21 06:31 Results - Labs CBC & Chem 7: 11/29/21 05:23 11/29/21 05:23 Labs: Laboratory Last Values WBC 13.0 K/mm3 (4.5-11.0) H 11/29/21 05:23 RBC 4.15 M/mm3 (3.65-5.03) 11/29/21 05:23 Hgb 11.1 gm/dl (10.1-14.3) 11/29/21 05:23 Hct 35.0 % (30.3-42.9) 11/29/21 05:23 MCV 84 fl (79-97) 11/29/21 05:23 MCH 27 pg (28-32) L 11/29/21 05:23 MCHC 32 % (30-34) 11/29/21 05:23 RDW 16.3 % (13.2-15.2) H 11/29/21 05:23 Plt Count 321 K/mm3 (140-440) 11/29/21 05:23 Lymph % (Auto) 17.7 % (13.4-35.0) 11/28/21 04:55 [place] % (Auto) 6.4 % (0.0-7.3) 11/28/21 04:55 Eos % (Auto) 1.6 % (0.0-4.3) 11/28/21 04:55 Baso % (Auto) 0.5 % (0.0-1.8) 11/28/21 04:55 Lymph # (Auto) 2.6 K/mm3 (1.2-5.4) 11/28/21 04:55 [place] # (Auto) 0.9 K/mm3 (0.0-0.8) H 11/28/21 04:55 Eos # (Auto) 0.2 K/mm3 (0.0-0.4) 11/28/21 04:55 Baso # (Auto) 0.1 K/mm3 (0.0-0.1) 11/28/21 04:55 Seg Neutrophils % 73.8 % (40.0-70.0) H 11/28/21 04:55 Seg Neutrophils # 10.6 K/mm3 (1.8-7.7) H 11/28/21 04:55 PT 16.7 Sec. (12.2-14.9) H 11/27/21 13:13 INR 1.21 (0.87-1.13) H 11/27/21 13:13 APTT 30.7 Sec. (24.2-36.6) 11/27/21 13:13 Sodium 139 mmol/L (137-145) 11/29/21 05:23 Potassium 3.7 mmol/L (3.6-5.0) 11/29/21 05:23 Chloride 107.7 mmol/L (98-107) H 11/29/21 05:23 Carbon Dioxide 23 mmol/L (22-30) 11/29/21 05:23 Anion Gap 12 mmol/L 11/29/21 05:23 BUN 10 mg/dL (7-17) 11/29/21 05:23 Creatinine 0.7 mg/dL (0.6-1.2) 11/29/21 05:23 Estimated GFR > 60 ml/min 11/29/21 05:23 BUN/Creatinine Ratio 14 % 11/29/21 05:23 Glucose 90 mg/dL (65-100) 11/29/21 05:23 Calcium 8.5 mg/dL (8.4-10.2) 11/29/21 05:23 Phosphorus 3.00 mg/dL (2.5-4.5) 11/29/21 05:23 Magnesium 2.20 mg/dL (1.7-2.3) 11/29/21 05:23 Total Bilirubin 0.40 mg/dL (0.1-1.2) 11/27/21 13:12 AST 21 units/L (5-40) 11/27/21 13:12 ALT 13 units/L (7-56) 11/27/21 13:12 Alkaline Phosphatase 76 units/L (35-129) 11/27/21 13:12 Total Protein 6.7 g/dL (6.3-8.2) 11/27/21 13:12 Albumin 3.1 g/dL (3.9-5) L 11/27/21 13:12 Albumin/Globulin Ratio 0.9 % 11/27/21 13:12 Rosas/IV: Voiding Method Bedpan Active Medications - Current Medications Current Medications: Generic Name Dose Route Start Last Admin Trade Name Freq PRN Reason Stop Dose Admin Acetaminophen 650 mg 11/27/21 17:41 Acetaminophen 325 Mg Tab PO Q6H PRN Pain MILD(1-3)/Fever >100.5/TORRES Albuterol 2.5 mg 11/27/21 17:41 Albuterol 2.5 Mg/3 Ml Nebu IH Q3HRT PRN Shortness Of Breath Atorvastatin Calcium 40 mg 11/27/21 22:00 11/28/21 21:15 Atorvastatin 40 Mg Tab PO 40 mg QHS DC Administration Furosemide 40 mg 11/28/21 10:00 11/28/21 19:22 Furosemide 40 Mg Tab PO Not Given QDAY DC Hydromorphone HCl 0.5 mg 11/27/21 17:41 11/29/21 06:39 Hydromorphone 0.5 Mg/0.5 Ml Inj IV 0.5 mg Q8H PRN Administration Pain , Severe (7-10) Isosorbide Mononitrate 30 mg 11/28/21 10:00 11/28/21 19:22 Isosorbide Mononitrate Er 30 Mg Tab PO Not Given QDAY DC Nifedipine 60 mg 11/28/21 10:00 11/28/21 19:22 Nifedipine Xl 60 Mg Tab PO Not Given QDAY DC Oxycodone/Acetaminophen 1 tab 11/27/21 17:41 Oxycodone /Acetaminophen 5-325mg Tab PO Q6H PRN Pain, Moderate (4-6) Pantoprazole Sodium 40 mg 11/28/21 10:00 11/28/21 19:11 Pantoprazole 40 Mg Tab PO 40 mg QDAY DC Administration Sodium Chloride 10 ml 11/27/21 22:00 11/28/21 21:17 Sodium Chloride 0.9% 10 Ml Flush Syringe IV 10 ml BID DC Administration Sodium Chloride 10 ml 11/27/21 17:41 11/29/21 06:39 Sodium Chloride 0.9% 10 Ml Flush Syringe IV 10 ml PRN PRN Administration LINE FLUSH Valsartan 160 mg 11/28/21 10:00 11/28/21 19:21 Valsartan 160mg Tab PO Not Given DAILY DC
--- NOTE | 2021-11-28 10:18 | Consultation ---
History of Present Illness - Reason for Consult Consult date: 11/28/21 Right common femoral artery pseudoaneurysm - History of Present Illness Patient with a history of [place] 3 years ago which was treated with stent placement at this institution with Dr. Roberson. I the patient presented to hospital in [place] secondary to bradycardia and underwent cardiac catheterization on Tuesday. Per patient, the patient's stents are patent. The patient had an uneventful recovery from her cardiac cath on Tuesday until night when getting ready for a wedding. The patient felt a pop and began to experience a hematoma in her right groin. She continued on with the wedding but ultimately afterwards presented to the emergency department. Patient underwent a CT scan which demonstrated a bilobed pseudoaneurysm originating from the anterior aspect of the common femoral artery with 2 cm neck measuring 1 mm in diameter. The pseudoaneurysm has 2 lobes each measuring approximately 1.5 cm in diameter that are linked. ER physician instructed to hold pressure after CTA findings were revealed for 15 minutes and then apply a pressure dressing. This was not done. Patient was ultimately transferred last night to [facility] where manual compression for 15 minutes and a pressure dressing were applied. At time of examination this morning, the patient is resting comfortably with no significant complaints. There is tenderness in the right groin secondary to significant hematoma. Distal pulses are intact. The patient does have known peripheral vascular disease Past History Past Medical History: atrial fib, DVT, heart failure, hypertension, hyperlipidemia, PVD, other (See HPI) Past Surgical History: Other (Cardiac cath) Social history: single. denies: smoking, alcohol abuse, prescription drug abuse Family history: diabetes, hypertension, stroke Medications and Allergies Allergies Allergy/AdvReac Type Severity Reaction Status Date / Time No Known Allergies Allergy Verified 09/24/20 00:03 Home Medications Medication Instructions Recorded Confirmed Last Taken Type Aspirin EC [Halfprin EC] 81 mg PO QDAY #30 tablet 12/15/18 11/27/21 09/06/21 Rx AtorvaSTATin [Lipitor] 40 mg PO QHS #30 tablet 12/15/18 11/27/21 11/26/21 Rx Clopidogrel [Plavix] 75 mg PO QDAY #30 tablet 12/15/18 11/27/21 11/26/21 Rx Furosemide [Lasix TAB] 40 mg PO QDAY #30 tablet 12/15/18 11/27/21 11/26/21 Rx ISOSORBIDE MONOnitrate [Imdur ER] 30 mg PO QDAY #30 tablet 12/15/18 11/27/21 11/26/21 Rx Pantoprazole [Protonix TAB] 40 mg PO QDAY #30 tablet 12/15/18 11/27/21 11/26/21 Rx cilostazoL [Pletal] 75 mg PO BID #60 tablet 12/15/18 11/27/21 11/26/21 Rx Apixaban [Eliquis] 2.5 mg PO BID 07/02/19 11/27/21 11/26/21 History NIFEdipine XL [Procardia Xl] 60 mg PO QDAY #30 tablet 07/04/19 11/27/21 11/19/21 Rx Valsartan [Diovan] 1 tab PO DAILY 09/24/20 11/27/21 11/26/21 History traMADoL [Ultram 50 MG tab] 50 mg PO Q6H PRN #10 tablet 09/24/20 11/27/21 11/26/21 Rx Active Meds: Active Medications Acetaminophen (Acetaminophen 325 Mg Tab) 650 mg PO Q6H PRN PRN Reason: Pain MILD(1-3)/Fever >100.5/TORRES Albuterol (Albuterol 2.5 Mg/3 Ml Nebu) 2.5 mg IH Q3HRT PRN PRN Reason: Shortness Of Breath Atorvastatin Calcium (Atorvastatin 40 Mg Tab) 40 mg PO QHS [facility] Last Admin: 11/27/21 23:40 Dose: 40 mg Furosemide (Furosemide 40 Mg Tab) 40 mg PO QDAY [facility] Hydromorphone HCl (Hydromorphone 0.5 Mg/0.5 Ml Inj) 0.5 mg IV Q8H PRN PRN Reason: Pain , Severe (7-10) Isosorbide Mononitrate (Isosorbide Mononitrate Er 30 Mg Tab) 30 mg PO QDAY [facility] Nifedipine (Nifedipine Xl 60 Mg Tab) 60 mg PO QDAY [facility] Oxycodone/Acetaminophen (Oxycodone /Acetaminophen 5-325mg Tab) 1 tab PO Q6H PRN PRN Reason: Pain, Moderate (4-6) Pantoprazole Sodium (Pantoprazole 40 Mg Tab) 40 mg PO QDAY [facility] Potassium Chloride (Potassium Chloride Er 20 Meq Tab) 40 meq PO ONCE@0830 [facility] Stop: 11/28/21 12:30 Sodium Chloride (Sodium Chloride 0.9% 10 Ml Flush Syringe) 10 ml IV BID [facility] Last Admin: 11/27/21 23:40 Dose: 10 ml Sodium Chloride (Sodium Chloride 0.9% 10 Ml Flush Syringe) 10 ml IV PRN PRN PRN Reason: LINE FLUSH Valsartan (Valsartan 160mg Tab) 160 mg PO DAILY DC Review of Systems All systems: negative Exam - Constitutional Vitals: Temp Pulse Resp BP Pulse Ox 98.2 F 56 L 21 142/54 95 11/28/21 04:00 11/28/21 07:01 11/28/21 07:01 11/28/21 07:01 11/28/21 07:01 General appearance: Present: no acute distress, obese - EENT Eyes: Present: EOM intact ENT: hearing intact - Neck Neck: Present: normal ROM - Respiratory Respiratory effort: normal - Extremities Extremities: abnormal (Right groin hematoma extending to the midline, right pedal pulses intact but faint) - Abdominal General gastrointestinal: Present: deferred - Rectal Rectal Exam: deferred - Psychiatric Psychiatric: appropriate mood/affect, cooperative Results - Labs CBC & Chem 7: 11/28/21 04:55 11/28/21 04:55 Labs: Abnormal lab results 11/27/21 11/27/21 11/27/21 Range/Units 13:12 13:12 13:13 WBC 16.0 H (4.5-11.0) K/mm3 MCH 27 L (28-32) pg RDW 16.3 H (13.2-15.2) % [place] # (Auto) 0.9 H (0.0-0.8) K/mm3 Baso # (Auto) 0.2 H (0.0-0.1) K/mm3 Seg Neutrophils % 74.0 H (40.0-70.0) % Seg Neutrophils # 11.8 H (1.8-7.7) K/mm3 PT 16.7 H (12.2-14.9) Sec. INR 1.21 H (0.87-1.13) Potassium (3.6-5.0) mmol/L Chloride 107.6 H (98-107) mmol/L Calcium (8.4-10.2) mg/dL Albumin 3.1 L (3.9-5) g/dL 11/27/21 11/28/21 11/28/21 Range/Units 16:47 04:55 04:55 WBC 14.2 H 14.4 H (4.5-11.0) K/mm3 MCH 27 L 27 L (28-32) pg RDW 16.2 H 16.3 H (13.2-15.2) % [place] # (Auto) 0.9 H 0.9 H (0.0-0.8) K/mm3 Baso # (Auto) (0.0-0.1) K/mm3 Seg Neutrophils % 72.7 H 73.8 H (40.0-70.0) % Seg Neutrophils # 10.3 H 10.6 H (1.8-7.7) K/mm3 PT (12.2-14.9) Sec. INR (0.87-1.13) Potassium 3.4 L D (3.6-5.0) mmol/L Chloride 108.1 H (98-107) mmol/L Calcium 8.2 L (8.4-10.2) mg/dL Albumin (3.9-5) g/dL - Imaging and Cardiology CT scan - abdomen: image reviewed CT scan - pelvis: image reviewed (CTA ab pelvis and CTA runoff both reviewed) Assessment and Plan The patient has been in compression overnight. An ultrasound of her right groin was ordered for today and will be performed within the hour per system technologist. Depending on the findings, the patient may need to continue with compressive therapy versus direct thrombin injection of the pseudoaneurysm to allow closure. N.p.o. for now until after her ultrasound has been performed. Additionally, the patient has a strong family history of CVA with multiple relatives succumbing to strokes. She has a strong cardiac history as well. If the patient has not had carotid duplex, this will need to be performed either during this admission or in the outpatient setting. At time of examination, the patient is bradycardic between 35 and 45 bpm. The patient will need cardiac evaluation prior to any procedures unless they are emergent.
--- NOTE | 2021-11-28 12:36 | Consultation ---
History of Present Illness Consult date: 11/28/21 Consult reason: other (femoral pseudoaneurysm) History of present illness: The patient is a 56-year-old woman with multivessel coronary artery disease, who reported to an outside hospital in [facility], [place], several days ago when she complained of palpitations. Her cardiac work-up ultimately led to a cardiac catheterization done via the femoral approach which showed that her previous multivessel stents were all patent, no additional interventions required. She was discharged from that hospital in stable condition, ambulatory presents to the emergency room with pain and swelling in her right groin, vascular surgery assessment is of an acute femoral pseudoaneurysm. Management plan is for direct pressure, followed by possible local thrombin injection. Cardiology consultation is requested for the finding of persistent sinus bradycardia on media monitor. At the time of my visit, she has a sinus bradycardia at 51. The patient has no chest pain, no shortness of breath, no further palpitations, no lower extremity edema. In her hospital records here, 2 years ago she was found with a persistent marked sinus bradycardia, TSH level was normal at 1.9. She was recommended for conservative management of asymptomatic sinus bradycardia, on her current medication profile there are no AV tata blocking agents. Comorbidities include chronic hypertension for which she is on valsartan and nifedipine XL. Her multivessel coronary stents were implanted in this hospital 3 years ago December 2018. At that time, she had suffered an acute coronary syndrome and ventricular fibrillation arrest. During her hospitalization she was also found with transient atrial fibrillation on the media monitor and for a period after what she was on triple therapy of Eliquis and dual oral antiplatelets. It is unclear when oral anticoagulation was removed from her regimen, her most recent cardiac follow-up has been in [place]. Her most recent documented ejection fraction in this hospital was about 45%. We do not have a record of her LV function from the catheterization of several days ago. Past History Past Medical History: atrial fib, CAD, DVT, heart failure, hypertension, hyperlipidemia, PVD, other (See HPI) Past Surgical History: Other (Cardiac cath) Social history: single. denies: smoking, alcohol abuse, prescription drug abuse Family history: diabetes, hypertension, stroke Medications and Allergies Allergies Allergy/AdvReac Type Severity Reaction Status Date / Time No Known Allergies Allergy Verified 09/24/20 00:03 Home Medications Medication Instructions Recorded Confirmed Last Taken Type Aspirin EC [Halfprin EC] 81 mg PO QDAY #30 tablet 12/15/18 11/27/21 09/06/21 Rx AtorvaSTATin [Lipitor] 40 mg PO QHS #30 tablet 12/15/18 11/27/21 11/26/21 Rx Clopidogrel [Plavix] 75 mg PO QDAY #30 tablet 12/15/18 11/27/21 11/26/21 Rx Furosemide [Lasix TAB] 40 mg PO QDAY #30 tablet 12/15/18 11/27/21 11/26/21 Rx ISOSORBIDE MONOnitrate [Imdur ER] 30 mg PO QDAY #30 tablet 12/15/18 11/27/21 11/26/21 Rx Pantoprazole [Protonix TAB] 40 mg PO QDAY #30 tablet 12/15/18 11/27/21 11/26/21 Rx cilostazoL [Pletal] 75 mg PO BID #60 tablet 12/15/18 11/27/21 11/26/21 Rx Apixaban [Eliquis] 2.5 mg PO BID 07/02/19 11/27/21 11/26/21 History NIFEdipine XL [Procardia Xl] 60 mg PO QDAY #30 tablet 07/04/19 11/27/21 11/19/21 Rx Valsartan [Diovan] 1 tab PO DAILY 09/24/20 11/27/21 11/26/21 History traMADoL [Ultram 50 MG tab] 50 mg PO Q6H PRN #10 tablet 09/24/20 11/27/2111/26 Rx Active Meds: Active Medications Acetaminophen (Acetaminophen 325 Mg Tab) 650 mg PO Q6H PRN PRN Reason: Pain MILD(1-3)/Fever >100.5/TORRES Albuterol (Albuterol 2.5 Mg/3 Ml Nebu) 2.5 mg IH Q3HRT PRN PRN Reason: Shortness Of Breath Atorvastatin Calcium (Atorvastatin 40 Mg Tab) 40 mg PO QHS DC Last Admin: 11/27/21 23:40 Dose: 40 mg Furosemide (Furosemide 40 Mg Tab) 40 mg PO QDAY [facility] Hydromorphone HCl (Hydromorphone 0.5 Mg/0.5 Ml Inj) 0.5 mg IV Q8H PRN PRN Reason: Pain , Severe (7-10) Isosorbide Mononitrate (Isosorbide Mononitrate Er 30 Mg Tab) 30 mg PO QDAY [facility] Nifedipine (Nifedipine Xl 60 Mg Tab) 60 mg PO QDAY [facility] Oxycodone/Acetaminophen (Oxycodone /Acetaminophen 5-325mg Tab) 1 tab PO Q6H PRN PRN Reason: Pain, Moderate (4-6) Pantoprazole Sodium (Pantoprazole 40 Mg Tab) 40 mg PO QDAY [facility] Sodium Chloride (Sodium Chloride 0.9% 10 Ml Flush Syringe) 10 ml IV BID [facility] Last Admin: 11/27/21 23:40 Dose: 10 ml Sodium Chloride (Sodium Chloride 0.9% 10 Ml Flush Syringe) 10 ml IV PRN PRN PRN Reason: LINE FLUSH Valsartan (Valsartan 160mg Tab) 160 mg PO DAILY [facility] Review of Systems Cardiovascular: no chest pain, no orthopnea, no palpitations, no rapid/irregular heart beat, no edema, no syncope, no lightheadedness, no shortness of breath Physical Examination Vital Signs Temp Pulse Resp BP Pulse Ox 98.6 F 62 18 152/83 100 11/27/21 11:28 11/27/21 11:28 11/27/21 11:28 11/27/21 11:28 11/27/21 11:28 General appearance: no acute distress HEENT: Positive: PERRL Neck: Positive: neck supple Cardiac: Positive: Regular Rhythm Lungs: Positive: clear to auscultation Neuro: Positive: Grossly Intact Abdomen: Positive: Soft Female genitourinary: deferred Skin: Positive: Clear Extremities: Absent: edema Results 11/29/21 05:23 11/29/21 05:23 Cardiac Enzymes 11/27/21 Range/Units 13:12 AST 21 (5-40) units/L Coagulation 11/27/21 Range/Units 13:13 PT 16.7 H (12.2-14.9) Sec. INR 1.21 H (0.87-1.13) APTT 30.7 (24.2-36.6) Sec. CBC 11/27/21 11/27/21 11/27/21 Range/Units 13:12 16:47 23:01 WBC 16.0 H 14.2 H (4.5-11.0) K/mm3 RBC 4.14 3.80 (3.65-5.03) M/mm3 Hgb 11.2 10.1 10.2 (10.1-14.3) gm/dl Hct 34.7 31.7 31.4 (30.3-42.9) % Plt Count 331 341 (140-440) K/mm3 Lymph # (Auto) 2.9 2.7 (1.2-5.4) K/mm3 Mcintosh # (Auto) 0.9 H 0.9 H (0.0-0.8) K/mm3 Eos # (Auto) 0.1 0.2 (0.0-0.4) K/mm3 Baso # (Auto) 0.2 H 0.1 (0.0-0.1) K/mm3 11/28/21 Range/Units 04:55 WBC 14.4 H (4.5-11.0) K/mm3 RBC 3.90 (3.65-5.03) M/mm3 Hgb 10.3 (10.1-14.3) gm/dl Hct 32.6 (30.3-42.9) % Plt Count 324 (140-440) K/mm3 Lymph # (Auto) 2.6 (1.2-5.4) K/mm3 Mcintosh # (Auto) 0.9 H (0.0-0.8) K/mm3 Eos # (Auto) 0.2 (0.0-0.4) K/mm3 Baso # (Auto) 0.1 (0.0-0.1) K/mm3 Comprehensive Metabolic Panel 11/27/21 11/28/21 Range/Units 13:12 04:55 Sodium 142 143 (137-145) mmol/L Potassium 4.4 3.4 L D (3.6-5.0) mmol/L Chloride 107.6 H 108.1 H (98-107) mmol/L Carbon Dioxide 22 24 (22-30) mmol/L BUN 15 10 (7-17) mg/dL Creatinine 0.8 0.8 (0.6-1.2) mg/dL Glucose 91 88 (65-100) mg/dL Calcium 8.8 8.2 L (8.4-10.2) mg/dL AST 21 (5-40) units/L ALT 13 (7-56) units/L Alkaline Phosphatase 76 (35-129) units/L Total Protein 6.7 (6.3-8.2) g/dL Albumin 3.1 L (3.9-5) g/dL EKG interpretations - Telemetry EKG Rhythm: Sinus Bradycardia (Otherwise normal ECG) Assessment and Plan - Patient Problems (1) Femoral artery aneurysm, right Current Visit: Yes Status: Acute Plan to address problem: Presenting problem is a right femoral pseudoaneurysm resulting from a cardiac catheterization done several days ago at outside hospital in [place]. Vascular surgery has outlined a protocol of management. (2) Sinus bradycardia Current Visit: Yes Status: Acute Plan to address problem: Patient has been recorded with a history of asymptomatic resting sinus bradycardia. We will recheck a TSH level, but otherwise follow conservatively in the absence of symptoms. Avoid AV tata blocking agents. (3) Coronary artery disease Current Visit: Yes Status: Acute Plan to address problem: Patient's coronary artery disease is stable and asymptomatic. The cardiac catheterization done several days ago reported patent multivessel stents, no additional coronary interventions. (4) Paroxysmal atrial fibrillation Current Visit: Yes Status: Acute Plan to address problem: Patient was noted with transient atrial fibrillation on media monitor 3 years ago, and was placed on triple therapy with Eliquis. She is no longer on Eliquis therapy, details surrounding the discontinuation not available, patient follows up with doctors in [place]. For now, there is no evidence of recurrent atrial fibrillation. Continue conservative management.
--- NOTE | 2021-11-28 12:49 | Vascular Lab Report ---
DUPLEX DOPPLER LOWER EXTREMITY ARTERIAL, RIGHT INDICATION / CLINICAL INFORMATION: right [employer] pseudoaneurysm. TECHNIQUE: Arterial duplex examination of the right lower extremity performed using B-mode, color flow and spect ral Doppler assessment. COMPARISON: CTA lower extremity 11/27/2021 FINDINGS: RIGHT: A right groin pseudoaneurysm is present with to and fro color Doppler flow with neck measuring 9 mm. The right pseudoaneurysm measures 3.0 x 2.7 x 1.8 cm. Normal color Doppler and spectral waveforms are seen within the right common femoral artery. IMPRESSION: 3 cm right groin pseudoaneurysm with 9 mm neck Signer Name: Aayush Phelan MD Signed: 11/28/2021 12:45 PM Workstation Name: [id number]
[2021-11-28] MEDS: FUROSEMIDE 40 MG TAB PO SCH ×2 (19:11→19:22)
[2021-11-28] MEDS: PANTOPRAZOLE 40 MG TAB PO SCH (19:11)
[2021-11-28] MEDS: NIFEdipine XL 60 MG TAB PO SCH ×2 (19:11→19:22)
[2021-11-28] MEDS: VALSARTAN 160MG TAB PO SCH ×2 (19:12→19:21)
[2021-11-28] MEDS ORDERED: POTASSIUM CHLORIDE ER 20 MEQ TAB PO ONE (20:30)
[2021-11-29 05:33] LABS: Hemoglobin 11.1 gm/dl (10.1-14.3); Mean Corpuscular HGB Conc 32 % (30-34); Mean Corpuscular Volume 84 fl (79-97); Platelet Count 321 K/mm3 (140-440); Red Blood Count 4.15 M/mm3 (3.65-5.03); Red Cell Distribution Width 16.3 % (13.2-15.2)
[2021-11-29 05:57] LABS: Blood Urea Nitrogen 10 mg/dL (7-17); Calcium 8.5 mg/dL (8.4-10.2); Hemolysis Index 26
[2021-11-29 05:58] LABS: BUN/Creatinine Ratio 14
[2021-11-29] MEDS ORDERED: LORazepam 2 MG/ML VIAL IV PRN (07:18)
[2021-11-29] MEDS: PANTOPRAZOLE 40 MG TAB PO SCH (10:02)
[2021-11-29] MEDS: NIFEdipine XL 60 MG TAB PO SCH (10:02)
[2021-11-29] MEDS: VALSARTAN 160MG TAB PO SCH (10:02)
[2021-11-29] MEDS: FUROSEMIDE 40 MG TAB PO SCH (10:02)
--- NOTE | 2021-11-29 10:20 | Progress Note ---
Subjective Date of service: 11/29/21 Principal diagnosis: Right common femoral artery pseudoaneurysm Interval history: Patient underwent ultrasound yesterday which demonstrates that the patient's pseudoaneurysm is persistent although decreased. Of note, the patient has not had a true pressure dressing. I the patient had a pressure dressing applied overnight last night by the [facility] nurse. Ultrasound evaluation of the patient's groin this morning demonstrated what appeared to be thrombosis of the pseudoaneurysms. A more robust pressure dressing was applied across this region in anticipation that the pseudoaneurysms will thrombose with simply pressure. The patient will be made n.p.o. after midnight for possible thrombin injection tomorrow morning in the [employer] if the pseudoaneurysm are persistent. Objective - Constitutional Vitals: Vital Signs - 12hr 11/28/21 11/28/21 11/28/21 22:19 22:21 22:31 Temperature Pulse Rate 49 L 57 L 50 L Pulse Rate [ From Monitor] Respiratory 22 24 Rate Respiratory 20 Rate [Right Groin] Blood Pressure 148/44 148/44 O2 Sat by Pulse Oximetry 11/28/21 11/28/21 11/28/21 22:41 22:45 22:51 Temperature Pulse Rate 58 L 47 L Pulse Rate [ 54 L From Monitor] Respiratory 24 18 25 H Rate Respiratory Rate [Right Groin] Blood Pressure 148/44 148/44 O2 Sat by Pulse 99 98 Oximetry 11/28/21 11/28/21 11/28/21 22:55 23:01 23:11 Temperature Pulse Rate 47 L 51 L 54 L Pulse Rate [ From Monitor] Respiratory 23 25 H 25 H Rate Respiratory Rate [Right Groin] Blood Pressure 148/44 137/54 137/54 O2 Sat by Pulse 97 93 96 Oximetry 11/28/21 11/28/21 11/28/21 23:15 23:20 23:31 Temperature 98.8 F Pulse Rate 65 53 L Pulse Rate [ From Monitor] Respiratory 17 24 Rate Respiratory Rate [Right Groin] Blood Pressure 148/44 137/54 O2 Sat by Pulse 100 84 Oximetry 11/28/21 11/28/21 11/29/21 23:41 23:51 00:00 Temperature Pulse Rate 50 L 51 L 53 L Pulse Rate [ From Monitor] Respiratory 24 20 24 Rate Respiratory Rate [Right Groin] Blood Pressure 137/54 137/54 147/67 O2 Sat by Pulse 82 L Oximetry 11/29/21 11/29/21 11/29/21 00:11 00:20 00:21 Temperature Pulse Rate 46 L 55 L Pulse Rate [ From Monitor] Respiratory 20 20 Rate Respiratory Rate [Right Groin] Blood Pressure 147/67 147/67 O2 Sat by Pulse 99 Oximetry 11/29/21 11/29/21 11/29/21 00:31 00:41 00:51 Temperature Pulse Rate 47 L 55 L 48 L Pulse Rate [ From Monitor] Respiratory 24 17 21 Rate Respiratory Rate [Right Groin] Blood Pressure 147/67 147/67 147/67 O2 Sat by Pulse Oximetry 11/29/21 11/29/21 11/29/21 01:01 01:11 01:14 Temperature Pulse Rate 46 L 46 L Pulse Rate [ From Monitor] Respiratory 23 23 Rate Respiratory Rate [Right Groin] Blood Pressure 152/59 152/59 O2 Sat by Pulse 93 96 99 Oximetry 11/29/21 11/29/21 11/29/21 01:21 01:31 01:41 Temperature Pulse Rate 51 L 53 L 53 L Pulse Rate [ From Monitor] Respiratory 24 25 H 24 Rate Respiratory Rate [Right Groin] Blood Pressure 152/59 152/59 152/59 O2 Sat by Pulse 95 95 95 Oximetry 11/29/21 11/29/21 11/29/21 01:51 02:01 02:11 Temperature Pulse Rate 53 L 45 L 47 L Pulse Rate [ From Monitor] Respiratory 8 L 22 23 Rate Respiratory Rate [Right Groin] Blood Pressure 152/59 138/61 138/61 O2 Sat by Pulse 89 Oximetry 11/29/21 11/29/21 11/29/21 02:21 02:31 02:41 Temperature Pulse Rate 52 L 42 L 45 L Pulse Rate [ From Monitor] Respiratory 17 20 23 Rate Respiratory Rate [Right Groin] Blood Pressure 138/61 138/61 138/61 O2 Sat by Pulse 96 98 Oximetry 11/29/21 11/29/21 11/29/21 02:51 03:00 03:11 Temperature Pulse Rate 53 L 53 L 46 L Pulse Rate [ From Monitor] Respiratory 25 H 20 16 Rate Respiratory Rate [Right Groin] Blood Pressure 138/61 153/69 153/69 O2 Sat by Pulse 97 Oximetry 11/29/21 11/29/21 11/29/21 03:20 03:21 03:31 Temperature 98.8 F Pulse Rate 42 L 44 L Pulse Rate [ From Monitor] Respiratory 21 14 Rate Respiratory Rate [Right Groin] Blood Pressure 153/69 153/69 O2 Sat by Pulse 99 Oximetry 11/29/21 11/29/21 11/29/21 03:41 03:51 03:57 Temperature Pulse Rate 47 L 43 L Pulse Rate [ From Monitor] Respiratory 21 23 Rate Respiratory Rate [Right Groin] Blood Pressure 153/69 153/69 O2 Sat by Pulse 99 Oximetry 11/29/21 11/29/21 11/29/21 04:00 04:10 04:20 Temperature Pulse Rate 42 L 46 L 47 L Pulse Rate [ From Monitor] Respiratory 22 21 21 Rate Respiratory Rate [Right Groin] Blood Pressure 153/69 151/56 151/56 O2 Sat by Pulse 98 100 Oximetry 11/29/21 11/29/21 11/29/21 04:31 04:41 04:51 Temperature Pulse Rate 43 L 47 L 56 L Pulse Rate [ From Monitor] Respiratory 19 22 17 Rate Respiratory Rate [Right Groin] Blood Pressure 151/56 151/56 O2 Sat by Pulse 99 Oximetry 11/29/21 11/29/21 11/29/21 05:00 05:11 05:21 Temperature Pulse Rate 50 L 50 L 39 L Pulse Rate [ From Monitor] Respiratory 17 20 10 L Rate Respiratory Rate [Right Groin] Blood Pressure 162/70 162/70 162/70 O2 Sat by Pulse 94 100 100 Oximetry 11/29/21 11/29/21 11/29/21 05:31 05:41 05:51 Temperature Pulse Rate 54 L 43 L 99 H Pulse Rate [ From Monitor] Respiratory 22 20 21 Rate Respiratory Rate [Right Groin] Blood Pressure 162/70 162/70 162/70 O2 Sat by Pulse 100 Oximetry 11/29/21 11/29/21 11/29/21 06:00 06:11 06:21 Temperature Pulse Rate 124 H 109 H 129 H Pulse Rate [ From Monitor] Respiratory 23 20 23 Rate Respiratory 20 Rate [Right Groin] Blood Pressure 145/106 145/106 145/106 O2 Sat by Pulse 95 97 Oximetry 11/29/21 11/29/21 11/29/21 06:31 06:41 07:00 Temperature Pulse Rate 141 H 156 H Pulse Rate [ 51 L From Monitor] Respiratory 21 17 18 Rate Respiratory Rate [Right Groin] Blood Pressure 145/106 145/106 O2 Sat by Pulse 100 100 Oximetry 11/29/21 07:43 Temperature 98.2 F Pulse Rate Pulse Rate [ From Monitor] Respiratory Rate Respiratory Rate [Right Groin] Blood Pressure O2 Sat by Pulse Oximetry - Labs CBC & Chem 7: 11/29/21 05:23 11/29/21 05:23 Labs: Abnormal lab results 11/29/21 11/29/21 Range/Units 05:23 05:23 WBC 13.0 H (4.5-11.0) K/mm3 MCH 27 L (28-32) pg RDW 16.3 H (13.2-15.2) % Chloride 107.7 H (98-107) mmol/L Medications & Allergies - Medications Allergies/Adverse Reactions: Allergies No Known Allergies Allergy (Verified 09/24/20 00:03) Home Medications: Home Medications Medication Instructions Recorded Confirmed Last Taken Type Aspirin EC [Halfprin EC] 81 mg PO QDAY #30 tablet 12/15/18 11/27/21 09/06/21 Rx AtorvaSTATin [Lipitor] 40 mg PO QHS #30 tablet 12/15/18 11/27/21 11/26/21 Rx Clopidogrel [Plavix] 75 mg PO QDAY #30 tablet 12/15/18 11/27/21 11/26/21 Rx Furosemide [Lasix TAB] 40 mg PO QDAY #30 tablet 12/15/18 11/27/21 11/26/21 Rx ISOSORBIDE MONOnitrate [Imdur ER] 30 mg PO QDAY #30 tablet 12/15/18 11/27/21 11/26/21 Rx Pantoprazole [Protonix TAB] 40 mg PO QDAY #30 tablet 12/15/18 11/27/21 11/26/21 Rx cilostazoL [Pletal] 75 mg PO BID #60 tablet 12/15/18 11/27/21 11/26/21 Rx Apixaban [Eliquis] 2.5 mg PO BID 07/02/19 11/27/21 11/26/21 History NIFEdipine XL [Procardia Xl] 60 mg PO QDAY #30 tablet 07/04/19 11/27/21 11/19/21 Rx Valsartan [Diovan] 1 tab PO DAILY 09/24/20 11/27/21 11/26/21 History traMADoL [Ultram 50 MG tab] 50 mg PO Q6H PRN #10 tablet 09/24/20 11/27/21 11/26/21 Rx Active Medications: Generic Name Dose Route Start Last Admin Trade Name Freq PRN Reason Stop Dose Admin Acetaminophen 650 mg 11/27/21 17:41 Acetaminophen 325 Mg Tab PO Q6H PRN Pain MILD(1-3)/Fever >100.5/TORRES Albuterol 2.5 mg 11/27/21 17:41 Albuterol 2.5 Mg/3 Ml Nebu IH Q3HRT PRN Shortness Of Breath Atorvastatin Calcium 40 mg 11/27/21 22:00 11/28/21 21:15 Atorvastatin 40 Mg Tab PO 40 mg QHS DC Administration Furosemide 40 mg 11/28/21 10:00 11/28/21 19:22 Furosemide 40 Mg Tab PO Not Given QDAY DC Hydromorphone HCl 0.5 mg 11/27/21 17:41 11/29/21 06:39 Hydromorphone 0.5 Mg/0.5 Ml Inj IV 0.5 mg Q8H PRN Administration Pain , Severe (7-10) Isosorbide Mononitrate 30 mg 11/28/21 10:00 11/28/21 19:22 Isosorbide Mononitrate Er 30 Mg Tab PO Not Given QDAY DC Lorazepam 0.5 mg 11/29/21 07:18 11/29/21 07:21 Lorazepam 2 Mg/Ml Vial IV 0.5 mg Q6H PRN Administration anxiety Nifedipine 60 mg 11/28/21 10:00 11/28/21 19:22 Nifedipine Xl 60 Mg Tab PO Not Given QDAY DC Oxycodone/Acetaminophen 1 tab 11/27/21 17:41 Oxycodone /Acetaminophen 5-325mg Tab PO Q6H PRN Pain, Moderate (4-6) Pantoprazole Sodium 40 mg 11/28/21 10:00 11/28/21 19:11 Pantoprazole 40 Mg Tab PO 40 mg QDAY DC Administration Sodium Chloride 10 ml 11/27/21 22:00 11/28/21 21:17 Sodium Chloride 0.9% 10 Ml Flush Syringe IV 10 ml BID DC Administration Sodium Chloride 10 ml 11/27/21 17:41 11/29/21 06:39 Sodium Chloride 0.9% 10 Ml Flush Syringe IV 10 ml PRN PRN Administration LINE FLUSH Valsartan 160 mg 11/28/21 10:00 11/28/21 19:21 Valsartan 160mg Tab PO Not Given DAILY DC
--- NOTE | 2021-11-29 13:22 | Progress Note ---
<TOYA MILES - Last Filed: 11/29/21 13:37> Assessment and Plan Assessment and plan: This is a 56-year-old female with known past medical history of HTN, HLD, PVD, cardiac arrest, CHF, CAD, [place] s/p X4 stents placement, paroxysmal atrial fibrillation and DVT was on antiplatelets and therapeutic anticoagulation at home, s/p recent LHC on 11/23/2021 via right groin presented with right femoral artery hemorrhage/hematoma which started 1 day prior admit. Hospital Course to Date: 11/28: Patient stable on RA this am. SB, HR in the 30s-50s this am, BP stable. Right groin hematoma with pressure dressing noted. RLE arterial doppler pending. Vascular Surgery on consult. Keep patient NPO for now for possible procedure. Cardiology also consulted for cardiac eval. 11/29: Right groin hematoma persist, pressure dressing applied this am by Vascular Surgery. Per Vascular surgery if hematoma persist possible thrombin injection tomorrow in the [facility]. NPO after midnight tonight. Continue PRN ativan for anxiety Assessment and Plan #Common Femoral Artery Pseudoaneurysm, Right #Right femoral artery hemorrhage/hematoma - Presented with right femoral artery hemorrhage/hematoma which started 1 day prior admit. - per patient, recent LHC on 11/23/2021 via right groin in [facility] by Dr. Home Corona - [facility] site was normal post procedure until she felt a pop while getting dress for her daughter's wedding - CTA revealed right femoral artery injury complicated by right femoral artery hemorrhage with expanding hematoma with suspicion for development of compartment syndrome. - Vascular Surgery consulted, appreciated recommendations - RLE arterial doppler noted, see report for detail - Right groin hematona persist, pressure dressing applied by Vascular surgery today - Per Vascular surgery if hematoma persist possible thrombin injection tomorrow in the [facility]. NPO after midnight tonight. - Continue vascular exam per protocol #Bradycardia #Paroxysmal Atrial Fibrillation #HTN (Hypertension) #HLD (Hyperlipidemia) #H/o Congestive Heart Failure(CHF), not in exacerbation - SB, HR in the 30 to 50s this am, BP stable - Per ECG trend periods of bradyarrhytmia also noted - 12 lead EKG revealed SB, with no significant ST changes - Patient is s/p recent LHC on 11/23/2021 [facility] by Dr. Home Corona. Per patient LHC was normal - Cardiology consulted - Home statin and antihypertensives resumed - Continue blood pressure monitor per protocol - Maintain SBP less than 160 - Hold AC and antiplatelets for now. Resume meds once okay by Vascular Surgery - Resume home lasix - Strick I&Os and Daily weight #SIRS (Systemic Inflammatory Response Syndrome) - Presented with Leukocytosis and tachypnea. No fevers, HR less than 60, BP stable - Probably reactive to above - Will continue to monitor for now - Panculture if patient is febrile. Hold off on IV abx for now - Continue to trend CBC #Anxiety/Panic Attack - Severe anxiety/panic attack overnight. HR got as high as 180s with hypertension - Symptoms resolved post IV ativan - Continue PRN Ativan for anxiety #Obesity Hypoventilation Syndrome - Balanced diet, increase physical activity discharge, outpatient pulmonary follow-up for sleep study. #History of DVT (Deep Vein Thrombosis) - SCDs bilateral lower extremities while in bed - Hold anticoagulation at this time due to high risk for recurrent bleeding. #GI/DVT Prophylaxis - PPI- Protonix - SCD to bilateral lower extremities while in bed #Advance Care Planning - Disease education data, care plan, diagnoses, and prognosis were discussed with the patient at the bedside. Patient is a FULL code. Patient acknowledged understanding and agreed with current care plan. The high probability of a clinically significant, sudden or life threatening deterioration of the [multiple] system(s) required my full and direct attention, intervention and personal management. The aggregate critical care time was [60] minutes. This time is in addition to time spent performing reported procedures but includes the following: [x] Data Review and interpretation [x] Patient assessment and monitoring of vital signs [x] Documentation [x] Medication orders and management Disposition Plan: IMCU Total Time Spent with Patient (Minutes): 60 History Interval history: Patient seen and examined at the bedside. Remains stable. Episode of panic attack this am, HR as high as 180 with hypertension. Symptoms resolved post PRN IV ativan. Right groin hematoma with pressure dressing noted. SB on the monitor this am, HR in 40 to 50s, BP stable Hospitalist Physical - Constitutional Vitals: Temp Pulse Resp BP Pulse Ox 98.1 F 48 L 18 154/88 99 11/29/21 11:46 11/29/21 11:00 11/29/21 11:00 11/29/21 10:02 11/29/21 11:00 General appearance: Present: no acute distress, well-nourished, obese Results - Labs CBC & Chem 7: 11/29/21 05:23 11/29/21 05:23 Labs: Laboratory Last Values WBC 13.0 K/mm3 (4.5-11.0) H 11/29/21 05:23 RBC 4.15 M/mm3 (3.65-5.03) 11/29/21 05:23 Hgb 11.1 gm/dl (10.1-14.3) 11/29/21 05:23 Hct 35.0 % (30.3-42.9) 11/29/21 05:23 MCV 84 fl (79-97) 11/29/21 05:23 MCH 27 pg (28-32) L 11/29/21 05:23 MCHC 32 % (30-34) 11/29/21 05:23 RDW 16.3 % (13.2-15.2) H 11/29/21 05:23 Plt Count 321 K/mm3 (140-440) 11/29/21 05:23 Lymph % (Auto) 17.7 % (13.4-35.0) 11/28/21 04:55 [place] % (Auto) 6.4 % (0.0-7.3) 11/28/21 04:55 Eos % (Auto) 1.6 % (0.0-4.3) 11/28/21 04:55 Baso % (Auto) 0.5 % (0.0-1.8) 11/28/21 04:55 Lymph # (Auto) 2.6 K/mm3 (1.2-5.4) 11/28/21 04:55 [place] # (Auto) 0.9 K/mm3 (0.0-0.8) H 11/28/21 04:55 Eos # (Auto) 0.2 K/mm3 (0.0-0.4) 11/28/21 04:55 Baso # (Auto) 0.1 K/mm3 (0.0-0.1) 11/28/21 04:55 Seg Neutrophils % 73.8 % (40.0-70.0) H 11/28/21 04:55 Seg Neutrophils # 10.6 K/mm3 (1.8-7.7) H 11/28/21 04:55 PT 16.7 Sec. (12.2-14.9) H 11/27/21 13:13 INR 1.21 (0.87-1.13) H 11/27/21 13:13 APTT 30.7 Sec. (24.2-36.6) 11/27/21 13:13 Sodium 139 mmol/L (137-145) 11/29/21 05:23 Potassium 3.7 mmol/L (3.6-5.0) 11/29/21 05:23 Chloride 107.7 mmol/L (98-107) H 11/29/21 05:23 Carbon Dioxide 23 mmol/L (22-30) 11/29/21 05:23 Anion Gap 12 mmol/L 11/29/21 05:23 BUN 10 mg/dL (7-17) 11/29/21 05:23 Creatinine 0.7 mg/dL (0.6-1.2) 11/29/21 05:23 Estimated GFR > 60 ml/min 11/29/21 05:23 BUN/Creatinine Ratio 14 % 11/29/21 05:23 Glucose 90 mg/dL (65-100) 11/29/21 05:23 Calcium 8.5 mg/dL (8.4-10.2) 11/29/21 05:23 Phosphorus 3.00 mg/dL (2.5-4.5) 11/29/21 05:23 Magnesium 2.20 mg/dL (1.7-2.3) 11/29/21 05:23 Total Bilirubin 0.40 mg/dL (0.1-1.2) 11/27/21 13:12 AST 21 units/L (5-40) 11/27/21 13:12 ALT 13 units/L (7-56) 11/27/21 13:12 Alkaline Phosphatase 76 units/L (35-129) 11/27/21 13:12 Total Protein 6.7 g/dL (6.3-8.2) 11/27/21 13:12 Albumin 3.1 g/dL (3.9-5) L 11/27/21 13:12 Albumin/Globulin Ratio 0.9 % 11/27/21 13:12 Rosas/IV: Voiding Method Bedpan Active Medications - Current Medications Current Medications: Generic Name Dose Route Start Last Admin Trade Name Freq PRN Reason Stop Dose Admin Acetaminophen 650 mg 11/27/21 17:41 Acetaminophen 325 Mg Tab PO Q6H PRN Pain MILD(1-3)/Fever >100.5/TORRES Albuterol 2.5 mg 11/27/21 17:41 Albuterol 2.5 Mg/3 Ml Nebu IH Q3HRT PRN Shortness Of Breath Atorvastatin Calcium 40 mg 11/27/21 22:00 11/28/21 21:15 Atorvastatin 40 Mg Tab PO 40 mg QHS DC Administration Furosemide 40 mg 11/28/21 10:00 11/29/21 10:02 Furosemide 40 Mg Tab PO 40 mg QDAY DC Administration Hydromorphone HCl 0.5 mg 11/27/21 17:41 11/29/21 06:39 Hydromorphone 0.5 Mg/0.5 Ml Inj IV 0.5 mg Q8H PRN Administration Pain , Severe (7-10) Isosorbide Mononitrate 30 mg 11/28/21 10:00 11/29/21 10:02 Isosorbide Mononitrate Er 30 Mg Tab PO 30 mg QDAY DC Administration Lorazepam 0.5 mg 11/29/21 07:18 11/29/21 07:21 Lorazepam 2 Mg/Ml Vial IV 0.5 mg Q6H PRN Administration anxiety Nifedipine 60 mg 11/28/21 10:00 11/29/21 10:02 Nifedipine Xl 60 Mg Tab PO 60 mg QDAY DC Administration Oxycodone/Acetaminophen 1 tab 11/27/21 17:41 Oxycodone /Acetaminophen 5-325mg Tab PO Q6H PRN Pain, Moderate (4-6) Pantoprazole Sodium 40 mg 11/28/21 10:00 11/29/21 10:02 Pantoprazole 40 Mg Tab PO 40 mg QDAY DC Administration Sodium Chloride 10 ml 11/27/21 22:00 11/29/21 10:16 Sodium Chloride 0.9% 10 Ml Flush Syringe IV 10 ml BID DC Administration Sodium Chloride 10 ml 11/27/21 17:41 11/29/21 06:39 Sodium Chloride 0.9% 10 Ml Flush Syringe IV 10 ml PRN PRN Administration LINE FLUSH Valsartan 160 mg 11/28/21 10:00 11/29/21 10:02 Valsartan 160mg Tab PO 160 mg DAILY DC Administration <JOROSELINEMILANA - Last Filed: 11/30/21 07:07> Assessment and Plan Assessment and plan: I saw and evaluated the patient. I agree with the findings and the plan of care as documented in the Nurse Practitioner's~note, with the following corrections and additions. Hospitalist Physical - Constitutional Vitals: Temp Pulse Resp BP Pulse Ox 99 F 51 L 22 114/61 100 11/30/21 05:15 11/30/21 06:31 11/30/21 06:31 11/30/21 06:31 11/30/21 02:28 Results - Labs CBC & Chem 7: 11/30/21 04:58 11/30/21 04:58 Labs: Laboratory Last Values WBC 16.3 K/mm3 (4.5-11.0) H 11/30/21 04:58 RBC 3.86 M/mm3 (3.65-5.03) 11/30/21 04:58 Hgb 10.2 gm/dl (10.1-14.3) 11/30/21 04:58 Hct 32.1 % (30.3-42.9) 11/30/21 04:58 MCV 83 fl (79-97) 11/30/21 04:58 MCH 26 pg (28-32) L 11/30/21 04:58 MCHC 32 % (30-34) 11/30/21 04:58 RDW 15.8 % (13.2-15.2) H 11/30/21 04:58 Plt Count 355 K/mm3 (140-440) 11/30/21 04:58 Lymph % (Auto) 17.7 % (13.4-35.0) 11/28/21 04:55 [place] % (Auto) 6.4 % (0.0-7.3) 11/28/21 04:55 Eos % (Auto) 1.6 % (0.0-4.3) 11/28/21 04:55 Baso % (Auto) 0.5 % (0.0-1.8) 11/28/21 04:55 Lymph # (Auto) 2.6 K/mm3 (1.2-5.4) 11/28/21 04:55 [place] # (Auto) 0.9 K/mm3 (0.0-0.8) H 11/28/21 04:55 Eos # (Auto) 0.2 K/mm3 (0.0-0.4) 11/28/21 04:55 Baso # (Auto) 0.1 K/mm3 (0.0-0.1) 11/28/21 04:55 Seg Neutrophils % 73.8 % (40.0-70.0) H 11/28/21 04:55 Seg Neutrophils # 10.6 K/mm3 (1.8-7.7) H 11/28/21 04:55 PT 16.7 Sec. (12.2-14.9) H 11/27/21 13:13 INR 1.21 (0.87-1.13) H 11/27/21 13:13 APTT 30.7 Sec. (24.2-36.6) 11/27/21 13:13 Sodium 142 mmol/L (137-145) 11/30/21 04:58 Potassium 3.3 mmol/L (3.6-5.0) L 11/30/21 04:58 Chloride 107.4 mmol/L (98-107) H 11/30/21 04:58 Carbon Dioxide 24 mmol/L (22-30) 11/30/21 04:58 Anion Gap 14 mmol/L 11/30/21 04:58 BUN 10 mg/dL (7-17) 11/30/21 04:58 Creatinine 0.8 mg/dL (0.6-1.2) 11/30/21 04:58 Estimated GFR > 60 ml/min 11/30/21 04:58 BUN/Creatinine Ratio 13 % 11/30/21 04:58 Glucose 105 mg/dL (65-100) H 11/30/21 04:58 Calcium 8.1 mg/dL (8.4-10.2) L 11/30/21 04:58 Phosphorus 3.00 mg/dL (2.5-4.5) 11/29/21 05:23 Magnesium 2.20 mg/dL (1.7-2.3) 11/29/21 05:23 Total Bilirubin 0.40 mg/dL (0.1-1.2) 11/27/21 13:12 AST 21 units/L (5-40) 11/27/21 13:12 ALT 13 units/L (7-56) 11/27/21 13:12 Alkaline Phosphatase 76 units/L (35-129) 11/27/21 13:12 Total Protein 6.7 g/dL (6.3-8.2) 11/27/21 13:12 Albumin 3.1 g/dL (3.9-5) L 11/27/21 13:12 Albumin/Globulin Ratio 0.9 % 11/27/21 13:12 TSH 1.540 mlU/mL (0.270-4.200) 11/29/21 18:08 Rosas/IV: Voiding Method Bedpan Active Medications - Current Medications Current Medications: Generic Name Dose Route Start Last Admin Trade Name Freq PRN Reason Stop Dose Admin Acetaminophen 650 mg 11/27/21 17:41 Acetaminophen 325 Mg Tab PO Q6H PRN Pain MILD(1-3)/Fever >100.5/TORRES Albuterol 2.5 mg 11/27/21 17:41 Albuterol 2.5 Mg/3 Ml Nebu IH Q3HRT PRN Shortness Of Breath Atorvastatin Calcium 40 mg 11/27/21 22:00 11/29/21 22:42 Atorvastatin 40 Mg Tab PO 40 mg QHS DC Administration Furosemide 40 mg 11/28/21 10:00 11/29/21 10:02 Furosemide 40 Mg Tab PO 40 mg QDAY DC Administration Hydromorphone HCl 0.5 mg 11/27/21 17:41 11/29/21 06:39 Hydromorphone 0.5 Mg/0.5 Ml Inj IV 0.5 mg Q8H PRN Administration Pain , Severe (7-10) Potassium Chloride 10 meq in 100 mls @ 100 mls/hr 11/30/21 07:00 Kcl 10meq/100ml IV 12/01/21 07:59 DIRECT DC Isosorbide Mononitrate 30 mg 11/28/21 10:00 11/29/21 10:02 Isosorbide Mononitrate Er 30 Mg Tab PO 30 mg QDAY DC Administration Lorazepam 0.5 mg 11/29/21 07:18 11/29/21 07:21 Lorazepam 2 Mg/Ml Vial IV 0.5 mg Q6H PRN Administration anxiety Nifedipine 60 mg 11/28/21 10:00 11/29/21 10:02 Nifedipine Xl 60 Mg Tab PO 60 mg QDAY DC Administration Oxycodone/Acetaminophen 1 tab 11/27/21 17:41 11/29/21 22:43 Oxycodone /Acetaminophen 5-325mg Tab PO 1 tab Q6H PRN Administration Pain, Moderate (4-6) Pantoprazole Sodium 40 mg 11/28/21 10:00 11/29/21 10:02 Pantoprazole 40 Mg Tab PO 40 mg QDAY DC Administration Sodium Chloride 10 ml 11/27/21 22:00 11/29/21 22:42 Sodium Chloride 0.9% 10 Ml Flush Syringe IV 10 ml BID DC Administration Sodium Chloride 10 ml 11/27/21 17:41 11/29/21 06:39 Sodium Chloride 0.9% 10 Ml Flush Syringe IV 10 ml PRN PRN Administration LINE FLUSH Valsartan 160 mg 11/28/21 10:00 11/29/21 10:02 Valsartan 160mg Tab PO 160 mg DAILY DC Administration
--- NOTE | 2021-11-29 15:21 | Progress Note ---
Assessment and Plan - Patient Problems (1) Femoral artery aneurysm, right Current Visit: Yes Status: Acute Plan to address problem: Presenting problem is a right femoral pseudoaneurysm resulting from a cardiac catheterization done several days ago at outside hospital in [place]. Vascular surgery has outlined a protocol of management. (2) Sinus bradycardia Current Visit: Yes Status: Acute Plan to address problem: Patient has been recorded with a history of asymptomatic resting sinus bradycardia. We will recheck a TSH level, but otherwise follow conservatively in the absence of symptoms. Avoid AV tata blocking agents. (3) Coronary artery disease Current Visit: Yes Status: Acute Plan to address problem: Patient's coronary artery disease is stable and asymptomatic. The cardiac catheterization done several days ago reported patent multivessel stents, no additional coronary interventions. (4) Paroxysmal atrial fibrillation Current Visit: Yes Status: Acute Plan to address problem: Patient was noted with transient atrial fibrillation on cardiac monitor 3 years ago, and was placed on triple therapy with Eliquis. She is no longer on Eliquis therapy, details surrounding the discontinuation not available, patient follows up with doctors in [place]. For now, there is no evidence of recurrent atrial fibrillation. Continue conservative management. Subjective Date of service: 11/29/21 Principal diagnosis: Right common femoral artery pseudoaneurysm Interval history: Patient is comfortable, no new cardiac events. On cardiac monitor, sinus bradycardia unchanged at 50. Objective Vital Signs Temp Pulse Pulse Resp Resp BP Pulse Ox 11/29/21 11:46 98.1 F 11/29/21 11:00 48 L 18 99 11/29/21 10:02 54 L 154/88 11/29/21 10:00 45 L 11/29/21 07:43 98.2 F 11/29/21 07:00 51 L 18 100 11/29/21 06:41 156 H 17 145/106 11/29/21 06:31 141 H 21 145/106 100 11/29/21 06:21 129 H 23 145/106 11/29/21 06:11 109 H 20 20 145/106 97 11/29/21 06:00 124 H 23 145/106 95 11/29/21 05:51 99 H 21 162/70 100 11/29/21 05:41 43 L 20 162/70 11/29/21 05:31 54 L 22 162/70 11/29/21 05:21 39 L 10 L 162/70 100 11/29/21 05:11 50 L 20 162/70 100 11/29/21 05:00 50 L 17 162/70 94 11/29/21 04:51 56 L 17 151/56 99 11/29/21 04:41 47 L 22 151/56 11/29/21 04:31 43 L 19 11/29/21 04:20 47 L 21 151/56 100 11/29/21 04:10 46 L 21 151/56 98 11/29/21 04:00 42 L 22 153/69 11/29/21 03:57 99 11/29/21 03:51 43 L 23 153/69 11/29/21 03:41 47 L 21 153/69 11/29/21 03:31 44 L 14 153/69 11/29/21 03:21 42 L 21 153/69 11/29/21 03:20 98.8 F 99 11/29/21 03:11 46 L 16 153/69 11/29/21 03:00 53 L 20 153/69 11/29/21 02:51 53 L 25 H 138/61 97 11/29/21 02:41 45 L 23 138/61 98 11/29/21 02:31 42 L 20 138/61 96 11/29/21 02:21 52 L 17 138/61 11/29/21 02:11 47 L 23 138/61 11/29/21 02:01 45 L 22 138/61 11/29/21 01:51 53 L 8 L 152/59 89 11/29/21 01:41 53 L 24 152/59 95 11/29/21 01:31 53 L 25 H 152/59 95 11/29/21 01:21 51 L 24 152/59 95 11/29/21 01:14 99 11/29/21 01:11 46 L 23 152/59 96 11/29/21 01:01 46 L 23 152/59 93 11/29/21 00:51 48 L 21 147/67 11/29/21 00:41 55 L 17 147/67 11/29/21 00:31 47 L 24 147/67 11/29/21 00:21 55 L 20 147/67 11/29/21 00:20 99 11/29/21 00:11 46 L 20 147/67 11/29/21 00:00 53 L 24 147/67 11/28/21 23:51 51 L 20 137/54 11/28/21 23:41 50 L 24 137/54 82 L 11/28/21 23:31 53 L 24 137/54 84 11/28/21 23:20 65 17 148/44 100 11/28/21 23:15 98.8 F 11/28/21 23:11 54 L 25 H 137/54 96 11/28/21 23:01 51 L 25 H 137/54 93 11/28/21 22:55 47 L 23 148/44 97 11/28/21 22:51 47 L 25 H 148/44 98 11/28/21 22:45 54 L 18 99 11/28/21 22:41 58 L 24 148/44 11/28/21 22:31 50 L 24 148/44 11/28/21 22:21 57 L 22 148/44 11/28/21 22:19 49 L 20 11/28/21 22:11 49 L 22 148/44 11/28/21 22:01 49 L 24 148/44 11/28/21 21:51 49 L 25 H 154/62 11/28/21 21:41 59 L 16 154/62 11/28/21 21:31 62 13 154/62 100 11/28/21 21:21 51 L 12 154/62 100 11/28/21 21:11 56 L 16 154/62 100 11/28/21 21:00 48 L 29 H 154/62 96 11/28/21 20:51 51 L 27 H 160/38 98 11/28/21 20:41 47 L 29 H 160/38 98 11/28/21 20:34 98.2 F 11/28/21 20:31 42 L 18 160/38 98 11/28/21 20:21 47 L 24 160/38 11/28/21 20:11 53 L 24 160/38 11/28/21 20:01 53 L 21 160/38 11/28/21 19:51 55 L 17 122/32 11/28/21 19:41 53 L 32 H 122/32 11/28/21 19:31 54 L 25 H 137/42 11/28/21 19:20 47 L 45 L 13 137/42 100 11/28/21 19:11 54 L 11 L 122/32 11/28/21 19:01 56 L 10 L 122/32 11/28/21 18:51 64 16 137/66 96 11/28/21 18:41 68 16 137/66 97 11/28/21 18:31 55 L 18 137/66 97 11/28/21 18:21 52 L 12 137/66 87 11/28/21 18:11 57 L 26 H 137/66 100 11/28/21 18:01 52 L 24 137/66 92 11/28/21 17:51 60 27 H 131/106 94 11/28/21 17:41 54 L 28 H 131/106 94 11/28/21 17:35 50 L 18 99 11/28/21 17:31 72 26 H 131/106 94 11/28/21 17:21 50 L 23 131/106 95 11/28/21 17:11 60 26 H 131/106 97 11/28/21 17:00 52 L 15 131/106 97 11/28/21 16:51 64 14 127/57 11/28/21 16:41 48 L 12 127/57 100 11/28/21 16:31 56 L 24 127/57 99 11/28/21 16:21 50 L 18 127/57 11/28/21 16:11 50 L 10 L 127/57 91 11/28/21 16:01 52 L 127/57 11/28/21 15:51 58 L 149/55 98 11/28/21 15:40 111 H 149/55 91 11/28/21 15:31 55 L 149/55 96 11/28/21 15:21 48 L 149/55 98 - Physical Examination General: No Apparent Distress HEENT: Positive: PERRL Neck: Positive: neck supple Cardiac: Positive: Regular Rhythm Lungs: Positive: clear to auscultation Neuro: Positive: Grossly Intact Abdomen: Positive: Soft Skin: Positive: Clear Extremities: Absent: edema - Labs and Meds CBC 11/29/21 Range/Units 05:23 WBC 13.0 H (4.5-11.0) K/mm3 RBC 4.15 (3.65-5.03) M/mm3 Hgb 11.1 (10.1-14.3) gm/dl Hct 35.0 (30.3-42.9) % Plt Count 321 (140-440) K/mm3 Comprehensive Metabolic Panel 11/29/21 Range/Units 05:23 Sodium 139 (137-145) mmol/L Potassium 3.7 (3.6-5.0) mmol/L Chloride 107.7 H (98-107) mmol/L Carbon Dioxide 23 (22-30) mmol/L BUN 10 (7-17) mg/dL Creatinine 0.7 (0.6-1.2) mg/dL Glucose 90 (65-100) mg/dL Calcium 8.5 (8.4-10.2) mg/dL
[2021-11-29] MEDS: oxyCODONE /ACETAMINOPHEN 5-325MG TAB PO PRN (22:43)
[2021-11-30 05:33] LABS: Hematocrit 32.1 % (30.3-42.9); Hemoglobin 10.2 gm/dl (10.1-14.3); Mean Corpuscular HGB Conc 32 % (30-34); Mean Corpuscular Volume 83 fl (79-97); Platelet Count 355 K/mm3 (140-440); Red Blood Count 3.86 M/mm3 (3.65-5.03); Red Cell Distribution Width 15.8 % (13.2-15.2)
[2021-11-30 05:53] LABS: BUN/Creatinine Ratio 13; Blood Urea Nitrogen 10 mg/dL (7-17); Calcium 8.1 mg/dL (8.4-10.2); Hemolysis Index 8
--- NOTE | 2021-11-30 09:56 | Electrocardiograph Report ---
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
[2021-11-30] MEDS: POTASSIUM CHLORIDE 10 MEQ 10 MEQ/100 ML BAG IV SCH ×2 (10:02→11:40)
--- NOTE | 2021-11-30 10:21 | Vascular Lab Report ---
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 TECHNIQUE: Arterial duplex examination of the right lower extremity performed using B-mode, color flow and spect ral Doppler assessment. FINDINGS: Comparison made with exam on 11/28/2021 RIGHT: No residual pseudoaneurysm identified. Common Femoral Artery: PSV 146 cm/sec. Triphasic waveform. Proximal SFA: PSV 111 cm/sec. Biphasic waveform. Mid SFA: PSV 136 cm/sec. Triphasic waveform. Distal SFA: PSV 116 cm/sec. Triphasic waveform. Popliteal artery: PSV 83 cm/sec. Triphasic waveform. IMPRESSION: No residual pseudoaneurysm identified on the current study. Signer Name: Yeyo Felix MD Signed: 11/30/2021 10:16 AM Workstation Name: [id number]
--- NOTE | 2021-11-30 11:18 | Event Note ---
Date: 11/30/21 Reviewed ultrasound. Pseudoaneurysm has thrombosed and is now hematoma. Some residual neck of the pseudoaneurysm noted. Resumed diet. We will see patient later today. Will ultimately need to follow- up with vascular in 2 weeks for reassessment and additional arterial ultrasound. Do not lift more than 10 pounds for the next 2 weeks until being seen by vascular.
[2021-11-30] MEDS: PANTOPRAZOLE 40 MG TAB PO SCH (11:50)
[2021-11-30] MEDS: FUROSEMIDE 40 MG TAB PO SCH (11:51)
[2021-11-30] MEDS: NIFEdipine XL 60 MG TAB PO SCH (11:52)
[2021-11-30] MEDS: VALSARTAN 160MG TAB PO SCH (11:52)
--- NOTE | 2021-11-30 14:37 | Progress Note ---
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 Vascular surgery has outlined a protocol of management. (2) Sinus bradycardia Current Visit: Yes Status: Acute Plan to address problem: Patient has been recorded with a history of asymptomatic resting sinus bradycardia. We will recheck a TSH level, but otherwise follow conservatively in the absence of symptoms. Avoid AV tata blocking agents. (3) Coronary artery disease Current Visit: Yes Status: Acute Plan to address problem: Patient's coronary artery disease is stable and asymptomatic. The cardiac catheterization done several days ago reported patent multivessel stents, no additional coronary interventions. (4) Paroxysmal atrial fibrillation Current Visit: Yes Status: Acute Plan to address problem: Patient was noted with transient atrial fibrillation on claims account specialist 3 years ago, and was placed on triple therapy with Eliquis. She is no longer on Eliquis therapy, details surrounding the discontinuation not available, patient follows up with doctors in [place]. For now, there is no evidence of recurrent atrial fibrillation. Continue conservative management. Subjective Date of service: 11/30/21 Principal diagnosis: Right common femoral artery pseudoaneurysm Interval history: Patient is comfortable, no new cardiac events. On claims account specialist, sinus rhythm at 61. TSH level is normal at 1.54. Objective Vital Signs Temp Pulse Pulse Resp BP Pulse Ox 11/30/21 13:11 119 H 17 144/75 11/30/21 13:00 59 L 16 144/75 11/30/21 12:51 59 L 25 H 149/79 11/30/21 12:41 52 L 28 H 149/79 11/30/21 12:31 59 L 27 H 149/79 11/30/21 12:21 60 20 149/79 11/30/21 12:11 61 14 149/79 11/30/21 12:00 53 L 20 149/79 11/30/21 11:52 53 L 139/74 11/30/21 11:51 47 L 14 139/74 11/30/21 11:46 98.5 F 11/30/21 11:41 51 L 17 58/39 11/30/21 11:31 52 L 20 58/39 11/30/21 11:21 54 L 18 58/39 11/30/21 11:11 55 L 27 H 58/39 11/30/21 11:01 53 L 25 H 58/39 11/30/21 11:00 45 L 18 100 11/30/21 10:51 49 L 15 105/72 11/30/21 10:41 56 L 16 119/71 11/30/21 10:31 47 L 22 119/71 11/30/21 10:21 54 L 10 L 119/71 11/30/21 10:11 57 L 10 L 105/72 11/30/21 10:00 53 L 16 105/72 11/30/21 09:51 56 L 14 119/71 11/30/21 09:41 65 14 119/71 11/30/21 09:31 54 L 16 119/71 11/30/21 09:21 51 L 18 119/71 11/30/21 09:11 81 16 119/71 11/30/21 09:01 57 L 19 119/71 11/30/21 08:51 53 L 23 120/66 11/30/21 08:41 52 L 22 120/66 11/30/21 08:31 53 L 19 120/66 11/30/21 08:21 71 23 120/66 11/30/21 08:11 58 L 23 120/66 11/30/21 08:00 56 L 24 120/66 11/30/21 07:51 47 L 19 130/67 11/30/21 07:41 56 L 20 130/67 11/30/21 07:31 53 L 21 130/67 11/30/21 07:21 50 L 22 130/67 11/30/21 07:16 98.1 F 11/30/21 07:11 51 L 130/67 11/30/21 07:00 53 L 48 L 18 130/67 100 11/30/21 06:51 67 21 114/61 11/30/21 06:41 57 L 22 114/61 11/30/21 06:31 51 L 22 114/61 11/30/21 06:21 55 L 21 114/61 11/30/21 06:11 57 L 23 114/61 11/30/21 06:00 52 L 20 114/61 11/30/21 05:51 52 L 21 130/64 11/30/21 05:41 56 L 20 130/64 11/30/21 05:31 54 L 22 130/64 11/30/21 05:21 46 L 19 130/64 11/30/21 05:15 99 F 11/30/21 05:11 57 L 22 130/64 11/30/21 05:01 61 16 114/53 11/30/21 04:51 56 L 23 114/53 11/30/21 04:41 54 L 24 114/53 11/30/21 04:31 54 L 24 114/53 11/30/21 04:21 53 L 24 114/53 11/30/21 04:11 64 23 114/53 11/30/21 04:00 56 L 22 114/53 11/30/21 03:51 54 L 16 127/61 11/30/21 03:41 60 22 127/61 11/30/21 03:31 50 L 18 127/61 11/30/21 03:21 64 26 H 127/61 11/30/21 03:11 56 L 25 H 127/61 11/30/21 03:00 57 L 24 127/61 11/30/21 02:51 53 L 25 H 116/72 11/30/21 02:41 62 16 116/72 11/30/21 02:31 57 L 25 H 116/72 11/30/21 02:28 100 11/30/21 02:21 58 L 23 116/72 11/30/21 02:11 58 L 24 116/72 11/30/21 02:00 71 26 H 116/72 11/30/21 01:50 74 23 119/51 11/30/21 01:41 54 L 22 119/51 11/30/21 01:31 73 28 H 119/51 11/30/21 01:21 68 24 11/30/21 01:10 59 L 28 H 119/51 11/30/21 01:00 67 25 H 119/51 11/30/21 00:51 67 28 H 115/64 11/30/21 00:41 64 26 H 115/64 11/30/21 00:31 65 19 115/64 11/30/21 00:21 74 24 115/64 11/30/21 00:11 59 L 28 H 115/64 11/30/21 00:00 58 L 12 115/64 11/29/21 23:55 64 22 102/60 07/24/22 23:51 68 16 102/60 11/29/21 23:41 62 11 L 102/60 11/29/21 23:31 75 15 102/60 11/29/21 23:21 75 14 102/60 11/29/21 23:12 60 11/29/21 23:11 59 L 29 H 102/60 11/29/21 23:00 60 34 H 102/60 100 11/29/21 22:51 70 30 H 112/68 11/29/21 22:43 99.3 F 11/29/21 22:41 87 17 112/68 11/29/21 22:31 76 23 112/68 11/29/21 22:21 62 14 112/68 11/29/21 22:11 107 H 16 112/68 11/29/21 22:00 59 L 12 112/68 11/29/21 21:51 59 L 15 119/58 11/29/21 21:41 62 14 119/58 11/29/21 21:31 58 L 20 119/58 11/29/21 21:21 59 L 14 119/58 11/29/21 21:11 57 L 18 119/58 11/29/21 21:00 60 13 119/58 11/29/21 20:51 59 L 15 122/49 11/29/21 20:41 58 L 11 L 122/49 11/29/21 20:31 57 L 20 122/49 11/29/21 20:21 55 L 18 122/49 11/29/21 20:11 56 L 13 122/49 11/29/21 20:00 56 L 12 123/56 11/29/21 19:51 55 L 21 122/49 11/29/21 19:41 61 18 122/49 11/29/21 19:30 64 17 122/49 11/29/21 19:21 62 13 122/49 11/29/21 19:11 73 15 122/49 11/29/21 19:00 61 26 H 122/49 100 11/29/21 18:51 79 29 H 112/49 11/29/21 18:41 73 24 112/49 11/29/21 18:31 61 30 H 112/49 11/29/21 18:21 65 22 112/49 11/29/21 18:11 66 32 H 112/49 11/29/21 18:01 62 29 H 112/49 11/29/21 17:51 66 31 H 131/74 11/29/21 17:41 73 24 131/74 11/29/21 17:31 103 H 20 131/74 11/29/21 17:21 71 22 131/74 11/29/21 17:11 67 25 H 131/74 11/29/21 17:00 55 L 19 131/74 11/29/21 16:51 59 L 26 H 145/85 11/29/21 16:41 55 L 18 145/85 90 11/29/21 16:31 50 L 15 145/85 97 11/29/21 16:21 59 L 11 L 145/85 99 11/29/21 16:11 62 13 145/85 100 11/29/21 16:00 61 11 L 145/85 99 11/29/21 15:51 53 L 13 151/53 100 11/29/21 15:41 62 18 151/53 92 11/29/21 15:31 55 L 10 L 151/53 100 11/29/21 15:21 49 L 11 L 151/53 100 11/29/21 15:11 53 L 12 151/53 11/29/21 15:01 47 L 10 L 151/53 11/29/21 15:00 50 L 18 100 11/29/21 14:51 51 L 15 145/66 100 - Physical Examination General: No Apparent Distress HEENT: Positive: PERRL Neck: Positive: neck supple Cardiac: Positive: Reg Rate and Rhythm Lungs: Positive: clear to auscultation Neuro: Positive: Grossly Intact Abdomen: Positive: Soft Skin: Positive: Clear Extremities: Absent: edema - Labs and Meds CBC 11/30/21 Range/Units 04:58 WBC 16.3 H (4.5-11.0) K/mm3 RBC 3.86 (3.65-5.03) M/mm3 Hgb 10.2 (10.1-14.3) gm/dl Hct 32.1 (30.3-42.9) % Plt Count 355 (140-440) K/mm3 Comprehensive Metabolic Panel 11/30/21 Range/Units 04:58 Sodium 142 (137-145) mmol/L Potassium 3.3 L (3.6-5.0) mmol/L Chloride 107.4 H (98-107) mmol/L Carbon Dioxide 24 (22-30) mmol/L BUN 10 (7-17) mg/dL Creatinine 0.8 (0.6-1.2) mg/dL Glucose 105 H (65-100) mg/dL Calcium 8.1 L (8.4-10.2) mg/dL
--- NOTE | 2021-11-30 17:15 | Progress Note ---
Assessment and Plan Pseudoaneurysm is thrombosed on most recent ultrasound. Consistent with physical exam. Hematoma noted in right groin which is painful. Will have patient walk around ICU and then can be transferred to telemetry. Discussed discharge with patient. May need PT with discharge if she has issues with walking. Patient should be able to be discharged tomorrow with follow-up with vascular in 2 weeks with repeat arterial ultrasound. This was discussed with patient. Card provided. Subjective Date of service: 11/30/21 Principal diagnosis: Right common femoral artery pseudoaneurysm Interval history: Doing well. Palpable dorsalis pedis pulses. Right groin palpated and hematoma noted. No pseudoaneurysm on physical exam. Reviewed ultrasound which demonstrates no pseudoaneurysm. Discussed with patient the findings. Recommended that she gets out of bed and walked. Recommended follow-up in 2 weeks with arterial ultrasound. Objective - Constitutional Vitals: Vital Signs - 12hr 11/30/21 11/30/21 11/30/21 05:15 05:21 05:31 Temperature 99 F Pulse Rate 46 L 54 L Pulse Rate [ From Monitor] Respiratory 19 22 Rate Blood Pressure 130/64 130/64 O2 Sat by Pulse Oximetry 11/30/21 11/30/21 11/30/21 05:41 05:51 06:00 Temperature Pulse Rate 56 L 52 L 52 L Pulse Rate [ From Monitor] Respiratory 20 21 20 Rate Blood Pressure 130/64 130/64 114/61 O2 Sat by Pulse Oximetry 11/30/21 11/30/21 11/30/21 06:11 06:21 06:31 Temperature Pulse Rate 57 L 55 L 51 L Pulse Rate [ From Monitor] Respiratory 23 21 22 Rate Blood Pressure 114/61 114/61 114/61 O2 Sat by Pulse Oximetry 11/30/21 11/30/21 11/30/21 06:41 06:51 07:00 Temperature Pulse Rate 57 L 67 53 L Pulse Rate [ 48 L From Monitor] Respiratory 22 21 18 Rate Blood Pressure 114/61 114/61 130/67 O2 Sat by Pulse 100 Oximetry 11/30/21 11/30/21 11/30/21 07:11 07:16 07:21 Temperature 98.1 F Pulse Rate 51 L 50 L Pulse Rate [ From Monitor] Respiratory 22 Rate Blood Pressure 130/67 130/67 O2 Sat by Pulse Oximetry 07/11/30/21 11/30/21 07:31 07:41 07:51 Temperature Pulse Rate 53 L 56 L 47 L Pulse Rate [ From Monitor] Respiratory 21 20 19 Rate Blood Pressure 130/67 130/67 130/67 O2 Sat by Pulse Oximetry 11/30/21 11/30/21 11/30/21 08:00 08:11 08:21 Temperature Pulse Rate 56 L 58 L 71 Pulse Rate [ From Monitor] Respiratory 24 23 23 Rate Blood Pressure 120/66 120/66 120/66 O2 Sat by Pulse Oximetry 11/30/21 11/30/21 11/30/21 08:31 08:41 08:51 Temperature Pulse Rate 53 L 52 L 53 L Pulse Rate [ From Monitor] Respiratory 19 22 23 Rate Blood Pressure 120/66 120/66 120/66 O2 Sat by Pulse Oximetry 11/30/21 11/30/21 11/30/21 09:01 09:11 09:21 Temperature Pulse Rate 57 L 81 51 L Pulse Rate [ From Monitor] Respiratory 19 16 18 Rate Blood Pressure 119/71 119/71 119/71 O2 Sat by Pulse Oximetry 11/30/21 11/30/21 11/30/21 09:31 09:41 09:51 Temperature Pulse Rate 54 L 65 56 L Pulse Rate [ From Monitor] Respiratory 16 14 14 Rate Blood Pressure 119/71 119/71 119/71 O2 Sat by Pulse Oximetry 11/30/21 11/30/21 11/30/21 10:00 10:11 10:21 Temperature Pulse Rate 53 L 57 L 54 L Pulse Rate [ From Monitor] Respiratory 16 10 L 10 L Rate Blood Pressure 105/72 105/72 119/71 O2 Sat by Pulse Oximetry 11/30/21 11/30/21 11/30/21 10:31 10:41 10:51 Temperature Pulse Rate 47 L 56 L 49 L Pulse Rate [ From Monitor] Respiratory 22 16 15 Rate Blood Pressure 119/71 119/71 105/72 O2 Sat by Pulse Oximetry 11/30/21 11/30/21 11/30/21 11:00 11:01 11:11 Temperature Pulse Rate 53 L 55 L Pulse Rate [ 45 L From Monitor] Respiratory 18 25 H 27 H Rate Blood Pressure 58/39 58/39 O2 Sat by Pulse 100 Oximetry 11/30/21 11/30/21 11/30/21 11:21 11:31 11:41 Temperature Pulse Rate 54 L 52 L 51 L Pulse Rate [ From Monitor] Respiratory 18 20 17 Rate Blood Pressure 58/39 58/39 58/39 O2 Sat by Pulse Oximetry 11/30/21 11/30/21 11/30/21 11:46 11:51 11:52 Temperature 98.5 F Pulse Rate 47 L 53 L Pulse Rate [ From Monitor] Respiratory 14 Rate Blood Pressure 139/74 139/74 O2 Sat by Pulse Oximetry 11/30/21 11/30/21 11/30/21 12:00 12:11 12:21 Temperature Pulse Rate 53 L 61 60 Pulse Rate [ From Monitor] Respiratory 20 14 20 Rate Blood Pressure 149/79 149/79 149/79 O2 Sat by Pulse Oximetry 11/30/21 11/30/21 11/30/21 12:31 12:41 12:51 Temperature Pulse Rate 59 L 52 L 59 L Pulse Rate [ From Monitor] Respiratory 27 H 28 H 25 H Rate Blood Pressure 149/79 149/79 149/79 O2 Sat by Pulse Oximetry 11/30/21 11/30/21 11/30/21 13:00 13:11 13:21 Temperature Pulse Rate 59 L 119 H 89 Pulse Rate [ From Monitor] Respiratory 16 17 21 Rate Blood Pressure 144/75 144/75 144/75 O2 Sat by Pulse Oximetry 11/30/21 11/30/21 11/30/21 13:31 13:41 13:51 Temperature Pulse Rate 57 L 58 L 59 L Pulse Rate [ From Monitor] Respiratory 17 27 H 27 H Rate Blood Pressure 144/75 144/75 144/75 O2 Sat by Pulse Oximetry 11/30/21 11/30/21 11/30/21 14:00 14:11 14:21 Temperature Pulse Rate 58 L 60 58 L Pulse Rate [ From Monitor] Respiratory 25 H 26 H 25 H Rate Blood Pressure 122/56 122/56 122/56 O2 Sat by Pulse Oximetry 11/30/21 11/30/21 11/30/21 14:31 14:41 14:51 Temperature Pulse Rate 63 63 63 Pulse Rate [ From Monitor] Respiratory 26 H 24 17 Rate Blood Pressure 122/56 122/56 122/56 O2 Sat by Pulse Oximetry 11/30/21 11/30/21 11/30/21 15:00 15:11 15:21 Temperature Pulse Rate 59 L 59 L 57 L Pulse Rate [ 47 L From Monitor] Respiratory 12 25 H 21 Rate Blood Pressure 132/61 132/61 132/61 O2 Sat by Pulse 100 Oximetry 11/30/21 11/30/21 11/30/21 15:31 15:41 15:51 Temperature Pulse Rate 61 53 L 65 Pulse Rate [ From Monitor] Respiratory 11 L 20 28 H Rate Blood Pressure 132/61 132/61 132/61 O2 Sat by Pulse Oximetry 11/30/21 11/30/21 16:00 16:11 Temperature 98.6 F Pulse Rate 61 56 L Pulse Rate [ From Monitor] Respiratory 18 25 H Rate Blood Pressure 126/64 126/64 O2 Sat by Pulse Oximetry General appearance: Present: no acute distress - EENT Eyes: EOM intact ENT: hearing intact - Neck Neck: supple - Respiratory Respiratory effort: normal Extremities: abnormal (Hematoma in right groin, palpable dorsalis pedis pulse bilateral) - Gastrointestinal General gastrointestinal: Present: soft, non-tender - Psychiatric Psychiatric: appropriate mood/affect, cooperative - Labs CBC & Chem 7: 11/30/21 04:58 11/30/21 04:58 Labs: Abnormal lab results 11/30/21 11/30/21 Range/Units 04:58 04:58 WBC 16.3 H (4.5-11.0) K/mm3 MCH 26 L (28-32) pg RDW 15.8 H (13.2-15.2) % Potassium 3.3 L (3.6-5.0) mmol/L Chloride 107.4 H (98-107) mmol/L Glucose 105 H (65-100) mg/dL Calcium 8.1 L (8.4-10.2) mg/dL Medications & Allergies - Medications Allergies/Adverse Reactions: Allergies No Known Allergies Allergy (Verified 09/24/20 00:03) Home Medications: Home Medications Medication Instructions Recorded Confirmed Last Taken Type Aspirin EC [Halfprin EC] 81 mg PO QDAY #30 tablet 12/15/18 11/27/21 09/06/21 Rx AtorvaSTATin [Lipitor] 40 mg PO QHS #30 tablet 12/15/18 11/27/21 11/26/21 Rx Clopidogrel [Plavix] 75 mg PO QDAY #30 tablet 12/15/18 11/27/21 11/26/21 Rx Furosemide [Lasix TAB] 40 mg PO QDAY #30 tablet 12/15/18 11/27/21 11/26/21 Rx ISOSORBIDE MONOnitrate [Imdur ER] 30 mg PO QDAY #30 tablet 12/15/18 11/27/21 11/26/21 Rx Pantoprazole [Protonix TAB] 40 mg PO QDAY #30 tablet 12/15/18 11/27/21 11/26/21 Rx cilostazoL [Pletal] 75 mg PO BID #60 tablet 12/15/18 11/27/21 11/26/21 Rx Apixaban [Eliquis] 2.5 mg PO BID 07/02/19 11/27/21 11/26/21 History NIFEdipine XL [Procardia Xl] 60 mg PO QDAY #30 tablet 07/04/19 11/27/21 11/19/21 Rx Valsartan [Diovan] 1 tab PO DAILY 09/24/20 11/27/21 11/26/21 History traMADoL [Ultram 50 MG tab] 50 mg PO Q6H PRN #10 tablet 09/24/20 11/27/21 11/26/21 Rx Active Medications: Generic Name Dose Route Start Last Admin Trade Name Freq PRN Reason Stop Dose Admin Acetaminophen 650 mg 11/27/21 17:41 Acetaminophen 325 Mg Tab PO Q6H PRN Pain MILD(1-3)/Fever >100.5/TORRES Albuterol 2.5 mg 11/27/21 17:41 Albuterol 2.5 Mg/3 Ml Nebu IH Q3HRT PRN Shortness Of Breath Atorvastatin Calcium 40 mg 11/27/21 22:00 11/29/21 22:42 Atorvastatin 40 Mg Tab PO 40 mg QHS DC Administration Furosemide 40 mg 11/28/21 10:00 11/30/21 11:51 Furosemide 40 Mg Tab PO 40 mg QDAY DC Administration Hydromorphone HCl 0.5 mg 11/27/21 17:41 11/29/21 06:39 Hydromorphone 0.5 Mg/0.5 Ml Inj IV 0.5 mg Q8H PRN Administration Pain , Severe (7-10) Potassium Chloride 10 meq in 100 mls @ 100 mls/hr 11/30/21 07:00 11/30/21 11:40 Kcl 10meq/100ml IV 12/01/21 07:59 100 mls/hr DIRECT DC Administration Isosorbide Mononitrate 30 mg 11/28/21 10:00 11/30/21 11:52 Isosorbide Mononitrate Er 30 Mg Tab PO 30 mg QDAY DC Administration Lorazepam 0.5 mg 11/29/21 07:18 11/29/21 07:21 Lorazepam 2 Mg/Ml Vial IV 0.5 mg Q6H PRN Administration anxiety Nifedipine 60 mg 11/28/21 10:00 11/30/21 11:52 Nifedipine Xl 60 Mg Tab PO 60 mg QDAY DC Administration Oxycodone/Acetaminophen 1 tab 11/27/21 17:41 11/29/21 22:43 Oxycodone /Acetaminophen 5-325mg Tab PO 1 tab Q6H PRN Administration Pain, Moderate (4-6) Pantoprazole Sodium 40 mg 11/28/21 10:00 11/30/21 11:50 Pantoprazole 40 Mg Tab PO 40 mg QDAY DC Administration Sodium Chloride 10 ml 11/27/21 22:00 11/30/21 10:02 Sodium Chloride 0.9% 10 Ml Flush Syringe IV 10 ml BID DC Administration Sodium Chloride 10 ml 11/27/21 17:41 11/29/21 06:39 Sodium Chloride 0.9% 10 Ml Flush Syringe IV 10 ml PRN PRN Administration LINE FLUSH Valsartan 160 mg 11/28/21 10:00 11/30/21 11:52 Valsartan 160mg Tab PO 160 mg DAILY DC Administration
--- NOTE | 2021-11-30 18:53 | Progress Note ---
<SHAHLAJENNIEunice - Last Filed: 11/30/21 18:51> Assessment and Plan Assessment and plan: This is a 53-year-old female with systolic heart failure, s/p V. fib arrest, CAD s/p stent placement (2019), atrial fibrillation, DVT, HTN, HLD and PVD admitted with a right femoral artery aneurysm Neuro: Anxiety -Reorientation as needed -Maintain sleep-wake cycle -As needed analgesia and anxiolytic Cardiac: Bradycardia, h/o systolic heart failure, V. fib arrest, CAD s/p stent placement in 2019, transient atrial fibrillation, HLD, PVD, HTN -Cardiology consulted, appreciate recommendations -S/p right femoral cardiac cath on 11/23/2021 -Per cardiology: cardiac catherization showed that her previous multivessel stents were all patent, no additional interventions required -Avoid AV tata blocking agents -Blood pressure monitoring per protocol -12/02/2018 echocardiogram showed septal wall hypertrophy, moderate global hypokinesis of the left ventricle, ejection fraction 30 to 35% -Resume home Lipitor, Lasix, Imdur, Procardia, valsartan Respiratory: h/o OHS -Pulmonary hygiene -SPO2 monitoring -Supplemental oxygen as needed -Outpatient pulmonary follow-up GI: Morbid obesity, moderate protein calorie mentation -24 hours +340 mL -PPI -Cardiac diet : Hypokalemia -Monitor intake and output -Renally dose medications -Avoid nephrotoxic medications -Replete potassium -Trend BMP ID: SIRS -Presented with leukocytosis and tachypnea -Monitor WBC and temperature curve Endo: NAD -Avoid hypoglycemia Heme: Right femoral artery hemorrhage with expanding hematoma, leukocytosis, h/o DVT -Vascular surgery consulted, appreciate recommendations -CTA pelvis shows 5.8 cm right inguinal hematoma with active extravasation arisi ng from the right common femoral artery -CTA abdomen with runoff shows persistent right groin pseudoaneurysm with likely type extravasation of contrast into it, hematoma in the right groin -Right lower extremity arterial duplex Doppler shows a 3 cm right groin pseudoaneurysm with a 9 mm neck -s/p manual pressure and pressure dressing -Repeat right lower extremity arterial Doppler ultrasound shows no residual pseudoaneurysm identified -Trend CBC -Transfuse hemoglobin less than 7 -SCDs to BLE while in bed The high probability of a clinically significant, sudden or life threatening deterioration of the [multiple] system(s) required my full and direct attention, intervention and personal management. The aggregate critical care time was [60] minutes. This time is in addition to time spent performing reported procedures but includes the following: [x] Data Review and interpretation [x] Patient assessment and monitoring of vital signs [x] Documentation [x] Medication orders and management Disposition Plan: transfer to floor Total Time Spent with Patient (Minutes): 60 History Interval history: This is a 53-year-old female with systolic heart failure, s/p V. fib cardiac arrest, HTN, HLD, PVD, CAD s/p stent placement (2018), atrial fibrillation, DVT on therapeutic anticoagulation who presented to the emergency department on 11/27 with complaints of leg pain, swelling and immobility. Of note patient underwent cardiac catheterization via right groin in [facility] per Dr. Home Corona on 11/23/2021 for complaints of palpitation which showed previous multivessel stents were all patent and no additional interventions required. Patient underwent a CTA with runoffs and was found to have a right femoral artery injury complicated by right femoral artery hemorrhage with expanding he matoma with suspicion of development of compartment syndrome and vascular surgery was consulted in the ED. Patient was admitted to the hospital service with consults to cardiology to IMCU via right femoral artery hemorrhage/expanding hematoma Hospital Course to Date: 11/28: Patient stable on RA this am. SB, HR in the 30s-50s this am, BP stable. Right groin hematoma with pressure dressing noted. RLE arterial doppler pending. Vascular Surgery on consult. Keep patient NPO for now for possible procedure. Cardiology also consulted for cardiac eval. 11/29: Right groin hematoma persist, pressure dressing applied this am by Vascular Surgery. Per Vascular surgery if hematoma persist possible thrombin injection tomorrow in the [employer]. NPO after midnight tonight. Continue PRN ativan for anxiety 11/30: Right arterial duplex showed no residual pseudoaneurysm, resumed cardiac diet, potassium repleted, transferred to telemetry possible discharge tomorrow with follow-up with vascular surgery 2 weeks. PT/OT consulted. Hospitalist Physical - Constitutional Vitals: Temp Pulse Resp BP Pulse Ox 98.6 F 59 L 13 141/75 100 11/30/21 16:00 11/30/21 18:01 11/30/21 18:01 11/30/21 18:01 11/30/21 15:00 General appearance: Present: no acute distress - EENT Eyes: Present: PERRL, EOM intact ENT: hearing intact, clear oral mucosa, dentition normal - Neck Neck: Present: normal ROM - Respiratory Respiratory effort: normal Respiratory: bilateral: CTA - Cardiovascular Rhythm: regular Heart Sounds: Present: S1 & S2. Absent: systolic murmur, diastolic murmur - Extremities Extremities: no ischemia, pulses intact, pulses symmetrical, No edema, normal temperature, normal color Peripheral Pulses: within normal limits (Right groing swollen and hard on palpation) - Abdominal General gastrointestinal: soft, non-tender, normal bowel sounds - Integumentary Integumentary: Present: warm, dry - Psychiatric Psychiatric: cooperative - Neurologic Neurologic: CNII-XII intact, no focal deficits, moves all extremities - Allied Health Allied health notes reviewed: nursing, RT, social work Results - Labs CBC & Chem 7: 11/30/21 04:58 11/30/21 04:58 Labs: Laboratory Last Values WBC 16.3 K/mm3 (4.5-11.0) H 11/30/21 04:58 RBC 3.86 M/mm3 (3.65-5.03) 11/30/21 04:58 Hgb 10.2 gm/dl (10.1-14.3) 11/30/21 04:58 Hct 32.1 % (30.3-42.9) 11/30/21 04:58 MCV 83 fl (79-97) 11/30/21 04:58 MCH 26 pg (28-32) L 11/30/21 04:58 MCHC 32 % (30-34) 11/30/21 04:58 RDW 15.8 % (13.2-15.2) H 11/30/21 04:58 Plt Count 355 K/mm3 (140-440) 11/30/21 04:58 Lymph % (Auto) 17.7 % (13.4-35.0) 11/28/21 04:55 Barnwell % (Auto) 6.4 % (0.0-7.3) 11/28/21 04:55 Eos % (Auto) 1.6 % (0.0-4.3) 11/28/21 04:55 Baso % (Auto) 0.5 % (0.0-1.8) 11/28/21 04:55 Lymph # (Auto) 2.6 K/mm3 (1.2-5.4) 11/28/21 04:55 Barnwell # (Auto) 0.9 K/mm3 (0.0-0.8) H 11/28/21 04:55 Eos # (Auto) 0.2 K/mm3 (0.0-0.4) 11/28/21 04:55 Baso # (Auto) 0.1 K/mm3 (0.0-0.1) 11/28/21 04:55 Seg Neutrophils % 73.8 % (40.0-70.0) H 11/28/21 04:55 Seg Neutrophils # 10.6 K/mm3 (1.8-7.7) H 11/28/21 04:55 PT 16.7 Sec. (12.2-14.9) H 11/27/21 13:13 INR 1.21 (0.87-1.13) H 11/27/21 13:13 APTT 30.7 Sec. (24.2-36.6) 11/27/21 13:13 Sodium 142 mmol/L (137-145) 11/30/21 04:58 Potassium 3.3 mmol/L (3.6-5.0) L 11/30/21 04:58 Chloride 107.4 mmol/L (98-107) H 11/30/21 04:58 Carbon Dioxide 24 mmol/L (22-30) 11/30/21 04:58 Anion Gap 14 mmol/L 11/30/21 04:58 BUN 10 mg/dL (7-17) 11/30/21 04:58 Creatinine 0.8 mg/dL (0.6-1.2) 11/30/21 04:58 Estimated GFR > 60 ml/min 11/30/21 04:58 BUN/Creatinine Ratio 13 % 11/30/21 04:58 Glucose 105 mg/dL (65-100) H 11/30/21 04:58 Calcium 8.1 mg/dL (8.4-10.2) L 11/30/21 04:58 Phosphorus 3.00 mg/dL (2.5-4.5) 11/29/21 05:23 Magnesium 2.00 mg/dL (1.7-2.3) 11/30/21 04:58 Total Bilirubin 0.40 mg/dL (0.1-1.2) 11/27/21 13:12 AST 21 units/L (5-40) 11/27/21 13:12 ALT 13 units/L (7-56) 11/27/21 13:12 Alkaline Phosphatase 76 units/L (35-129) 11/27/21 13:12 Total Protein 6.7 g/dL (6.3-8.2) 11/27/21 13:12 Albumin 3.1 g/dL (3.9-5) L 11/27/21 13:12 Albumin/Globulin Ratio 0.9 % 11/27/21 13:12 TSH 1.540 mlU/mL (0.270-4.200) 11/29/21 18:08 Rosas/IV: Voiding Method Bedpan Active Medications - Current Medications Current Medications: Generic Name Dose Route Start Last Admin Trade Name Freq PRN Reason Stop Dose Admin Acetaminophen 650 mg 11/27/21 17:41 Acetaminophen 325 Mg Tab PO Q6H PRN Pain MILD(1-3)/Fever >100.5/TORRES Albuterol 2.5 mg 11/27/21 17:41 Albuterol 2.5 Mg/3 Ml Nebu IH Q3HRT PRN Shortness Of Breath Atorvastatin Calcium 40 mg 11/27/21 22:00 11/29/21 22:42 Atorvastatin 40 Mg Tab PO 40 mg QHS DC Administration Furosemide 40 mg 11/28/21 10:00 11/30/21 11:51 Furosemide 40 Mg Tab PO 40 mg QDAY DC Administration Hydromorphone HCl 0.5 mg 11/27/21 17:41 11/29/21 06:39 Hydromorphone 0.5 Mg/0.5 Ml Inj IV 0.5 mg Q8H PRN Administration Pain , Severe (7-10) Potassium Chloride 10 meq in 100 mls @ 100 mls/hr 11/30/21 07:00 11/30/21 11:40 Kcl 10meq/100ml IV 12/01/21 07:59 100 mls/hr DIRECT DC Administration Isosorbide Mononitrate 30 mg 11/28/21 10:00 11/30/21 11:52 Isosorbide Mononitrate Er 30 Mg Tab PO 30 mg QDAY DC Administration Lorazepam 0.5 mg 11/29/21 07:18 11/29/21 07:21 Lorazepam 2 Mg/Ml Vial IV 0.5 mg Q6H PRN Administration anxiety Nifedipine 60 mg 11/28/21 10:00 11/30/21 11:52 Nifedipine Xl 60 Mg Tab PO 60 mg QDAY DC Administration Oxycodone/Acetaminophen 1 tab 11/27/21 17:41 11/29/21 22:43 Oxycodone /Acetaminophen 5-325mg Tab PO 1 tab Q6H PRN Administration Pain, Moderate (4-6) Pantoprazole Sodium 40 mg 11/28/21 10:00 11/30/21 11:50 Pantoprazole 40 Mg Tab PO 40 mg QDAY DC Administration Sodium Chloride 10 ml 11/27/21 22:00 11/30/21 10:02 Sodium Chloride 0.9% 10 Ml Flush Syringe IV 10 ml BID DC Administration Sodium Chloride 10 ml 11/27/21 17:41 11/29/21 06:39 Sodium Chloride 0.9% 10 Ml Flush Syringe IV 10 ml PRN PRN Administration LINE FLUSH Valsartan 160 mg 11/28/21 10:00 11/30/21 11:52 Valsartan 160mg Tab PO 160 mg DAILY DC Administration <MILANA ACE - Last Filed: 12/01/21 07:55> Assessment and Plan Assessment and plan: I saw and evaluated the patient. I agree with the findings and the plan of care as documented in the Nurse Practitioner's~note, with the following corrections and additions. Hospitalist Physical - Constitutional Vitals: Temp Pulse Resp BP Pulse Ox 98.3 F 57 L 16 123/67 99 12/01/21 07:51 12/01/21 07:51 12/01/21 03:54 12/01/21 07:51 12/01/21 07:51 Results - Labs CBC & Chem 7: 12/01/21 05:21 12/01/21 05:21 Labs: Laboratory Last Values WBC 14.4 K/mm3 (4.5-11.0) H 12/01/21 05:21 RBC 4.35 M/mm3 (3.65-5.03) 12/01/21 05:21 Hgb 11.7 gm/dl (10.1-14.3) 12/01/21 05:21 Hct 36.4 % (30.3-42.9) 12/01/21 05:21 MCV 84 fl (79-97) 12/01/21 05:21 MCH 27 pg (28-32) L 12/01/21 05:21 MCHC 32 % (30-34) 12/01/21 05:21 RDW 16.5 % (13.2-15.2) H 12/01/21 05:21 Plt Count 414 K/mm3 (140-440) 12/01/21 05:21 Lymph % (Auto) 17.7 % (13.4-35.0) 11/28/21 04:55 Barnwell % (Auto) 6.4 % (0.0-7.3) 11/28/21 04:55 Eos % (Auto) 1.6 % (0.0-4.3) 11/28/21 04:55 Baso % (Auto) 0.5 % (0.0-1.8) 11/28/21 04:55 Lymph # (Auto) 2.6 K/mm3 (1.2-5.4) 11/28/21 04:55 Barnwell # (Auto) 0.9 K/mm3 (0.0-0.8) H 11/28/21 04:55 Eos # (Auto) 0.2 K/mm3 (0.0-0.4) 11/28/21 04:55 Baso # (Auto) 0.1 K/mm3 (0.0-0.1) 11/28/21 04:55 Seg Neutrophils % 73.8 % (40.0-70.0) H 11/28/21 04:55 Seg Neutrophils # 10.6 K/mm3 (1.8-7.7) H 11/28/21 04:55 PT 16.7 Sec. (12.2-14.9) H 11/27/21 13:13 INR 1.21 (0.87-1.13) H 11/27/21 13:13 APTT 30.7 Sec. (24.2-36.6) 11/27/21 13:13 Sodium 139 mmol/L (137-145) 12/01/21 05:21 Potassium 3.4 mmol/L (3.6-5.0) L 12/01/21 05:21 Chloride 104.4 mmol/L (98-107) 12/01/21 05:21 Carbon Dioxide 23 mmol/L (22-30) 12/01/21 05:21 Anion Gap 15 mmol/L 12/01/21 05:21 BUN 9 mg/dL (7-17) 12/01/21 05:21 Creatinine 0.8 mg/dL (0.6-1.2) 12/01/21 05:21 Estimated GFR > 60 ml/min 12/01/21 05:21 BUN/Creatinine Ratio 11 % 12/01/21 05:21 Glucose 88 mg/dL (65-100) 12/01/21 05:21 Calcium 8.7 mg/dL (8.4-10.2) 12/01/21 05:21 Phosphorus 3.00 mg/dL (2.5-4.5) 11/29/21 05:23 Magnesium 2.00 mg/dL (1.7-2.3) 11/30/21 04:58 Total Bilirubin 0.40 mg/dL (0.1-1.2) 11/27/21 13:12 AST 21 units/L (5-40) 11/27/21 13:12 ALT 13 units/L (7-56) 11/27/21 13:12 Alkaline Phosphatase 76 units/L (35-129) 11/27/21 13:12 Total Protein 6.7 g/dL (6.3-8.2) 11/27/21 13:12 Albumin 3.1 g/dL (3.9-5) L 11/27/21 13:12 Albumin/Globulin Ratio 0.9 % 11/27/21 13:12 TSH 1.540 mlU/mL (0.270-4.200) 11/29/21 18:08 Rosas/IV: Voiding Method Bedpan Active Medications - Current Medications Current Medications: Generic Name Dose Route Start Last Admin Trade Name Freq PRN Reason Stop Dose Admin Acetaminophen 650 mg 11/27/21 17:41 Acetaminophen 325 Mg Tab PO Q6H PRN Pain MILD(1-3)/Fever >100.5/TORRES Albuterol 2.5 mg 11/27/21 17:41 Albuterol 2.5 Mg/3 Ml Nebu IH Q3HRT PRN Shortness Of Breath Atorvastatin Calcium 40 mg 11/27/21 22:00 11/30/21 21:06 Atorvastatin 40 Mg Tab PO 40 mg QHS DC Administration Furosemide 40 mg 11/28/21 10:00 11/30/21 11:51 Furosemide 40 Mg Tab PO 40 mg QDAY DC Administration Hydromorphone HCl 0.5 mg 11/27/21 17:41 11/29/21 06:39 Hydromorphone 0.5 Mg/0.5 Ml Inj IV 0.5 mg Q8H PRN Administration Pain , Severe (7-10) Isosorbide Mononitrate 30 mg 11/28/21 10:00 11/30/21 11:52 Isosorbide Mononitrate Er 30 Mg Tab PO 30 mg QDAY DC Administration Lorazepam 0.5 mg 11/29/21 07:18 11/29/21 07:21 Lorazepam 2 Mg/Ml Vial IV 0.5 mg Q6H PRN Administration anxiety Nifedipine 60 mg 11/28/21 10:00 11/30/21 11:52 Nifedipine Xl 60 Mg Tab PO 60 mg QDAY DC Administration Oxycodone/Acetaminophen 1 tab 11/27/21 17:41 11/30/21 21:06 Oxycodone /Acetaminophen 5-325mg Tab PO 1 tab Q6H PRN Administration Pain, Moderate (4-6) Pantoprazole Sodium 40 mg 11/28/21 10:00 11/30/21 11:50 Pantoprazole 40 Mg Tab PO 40 mg QDAY DC Administration Sodium Chloride 10 ml 11/27/21 22:00 11/30/21 21:06 Sodium Chloride 0.9% 10 Ml Flush Syringe IV 10 ml BID DC Administration Sodium Chloride 10 ml 11/27/21 17:41 11/29/21 06:39 Sodium Chloride 0.9% 10 Ml Flush Syringe IV 10 ml PRN PRN Administration LINE FLUSH Valsartan 160 mg 11/28/21 10:00 11/30/21 11:52 Valsartan 160mg Tab PO 160 mg DAILY DC Administration
[2021-11-30] MEDS: oxyCODONE /ACETAMINOPHEN 5-325MG TAB PO PRN (21:06)
[2021-12-01 06:31] LABS: Hematocrit 36.4 % (30.3-42.9); Hemoglobin 11.7 gm/dl (10.1-14.3); Mean Corpuscular HGB Conc 32 % (30-34); Mean Corpuscular Volume 84 fl (79-97); Platelet Count 414 K/mm3 (140-440); Red Blood Count 4.35 M/mm3 (3.65-5.03); Red Cell Distribution Width 16.5 % (13.2-15.2)
[2021-12-01 07:19] LABS: BUN/Creatinine Ratio 11; Blood Urea Nitrogen 9 mg/dL (7-17); Calcium 8.7 mg/dL (8.4-10.2); Hemolysis Index 14
[2021-12-01] MEDS: PANTOPRAZOLE 40 MG TAB PO SCH (10:21)
[2021-12-01] MEDS: NIFEdipine XL 60 MG TAB PO SCH (10:21)
[2021-12-01] MEDS: FUROSEMIDE 40 MG TAB PO SCH (10:21)
[2021-12-01] MEDS: VALSARTAN 160MG TAB PO SCH (10:21)
--- NOTE | 2021-12-01 10:50 | Progress Note ---
Assessment and Plan - Patient Problems (1) Femoral artery aneurysm, right Current Visit: Yes Status: Acute Plan to address problem: Presenting problem is a right femoral pseudoaneurysm resulting from a cardiac catheterization done several days ago at outside hospital in [place]. Vascular surgery has outlined a protocol of management. (2) Sinus bradycardia Current Visit: Yes Status: Acute Plan to address problem: Patient has been recorded with a history of asymptomatic resting sinus bradycardia. Recommend continue to avoid AV tata blocking agents. (3) Coronary artery disease Current Visit: Yes Status: Acute Plan to address problem: Patient's coronary artery disease is stable and asymptomatic. The cardiac catheterization done several days ago reported patent multivessel stents, no additional coronary interventions. She was on sole antiplatelet therapy with Plavix prior to presentation, we will resume Plavix and continue other guideline directed therapy for the coronary disease. Obviously with her history of bradycardia, she is not a candidate for beta-lj therapy. 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 She reports that she has been maintained on Eliquis, until her recent admission. Due to right groin hematoma, we will continue to hold Eliquis, and recommend to restart in a week after right groin hematoma and bleeding have resolved. 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 It will be noted that prior to admission, she was on antiplatelet therapy with Plavix for her multivessel coronary artery disease, and Eliquis for her history of paroxysmal atrial fibrillation. Objective Vital Signs Temp Pulse Pulse Resp BP Pulse Ox 12/01/21 10:22 85 12/01/21 07:51 98.3 F 57 L 123/67 99 12/01/21 03:54 98.3 F 65 16 123/69 96 11/30/21 23:44 98.2 F 64 16 152/75 94 11/30/21 23:00 97 11/30/21 21:29 98.5 F 66 16 144/77 97 11/30/21 21:24 71 11/30/21 21:00 62 20 142/84 11/30/21 20:51 72 16 149/89 11/30/21 20:41 62 29 H 149/89 11/30/21 20:31 62 16 149/89 11/30/21 20:21 60 16 149/89 11/30/21 20:11 59 L 25 H 149/89 11/30/21 20:00 100.4 F H 66 18 149/89 11/30/21 19:51 71 18 140/77 11/30/21 19:41 59 L 17 140/77 11/30/21 19:31 61 21 140/77 11/30/21 19:21 67 26 H 140/77 11/30/21 19:11 62 29 H 140/77 11/30/21 19:01 56 L 27 H 140/77 11/30/21 19:00 100 11/30/21 18:51 56 L 25 H 141/75 11/30/21 18:41 66 16 141/75 11/30/21 18:31 62 11 L 141/75 11/30/21 18:21 61 13 141/75 11/30/21 18:11 61 19 141/75 11/30/21 18:01 59 L 13 141/75 11/30/21 17:51 62 17 118/60 11/30/21 17:41 72 20 118/60 11/30/21 17:31 95 H 25 H 118/60 11/30/21 17:21 81 13 118/60 11/30/21 17:11 62 18 118/60 11/30/21 17:00 56 L 10 L 118/60 11/30/21 16:51 56 L 16 126/64 11/30/21 16:41 58 L 18 126/64 11/30/21 16:31 50 L 10 L 126/64 11/30/21 16:21 62 22 126/64 11/30/21 16:11 56 L 25 H 126/64 11/30/21 16:00 98.6 F 61 18 126/64 11/30/21 15:51 65 28 H 132/61 11/30/21 15:41 53 L 20 132/61 11/30/21 15:31 61 11 L 132/61 11/30/21 15:21 57 L 21 132/61 11/30/21 15:11 59 L 25 H 132/61 0722 15:00 59 L 47 L 12 132/61 100 11/30/21 14:51 63 17 122/56 11/30/21 14:41 63 24 122/56 11/30/21 14:31 63 26 H 122/56 11/30/21 14:21 58 L 25 H 122/56 11/30/21 14:11 60 26 H 122/56 11/30/21 14:00 58 L 25 H 122/56 11/30/21 13:51 59 L 27 H 144/75 11/30/21 13:41 58 L 27 H 144/75 11/30/21 13:31 57 L 17 144/75 11/30/21 13:21 89 21 144/75 11/30/21 13:11 119 H 17 144/75 11/30/21 13:00 59 L 16 144/75 11/30/21 12:51 59 L 25 H 149/79 11/30/21 12:41 52 L 28 H 149/79 11/30/21 12:31 59 L 27 H 149/79 11/30/21 12:21 60 20 149/79 11/30/21 12:11 61 14 149/79 11/30/21 12:00 53 L 20 149/79 11/30/21 11:52 53 L 139/74 11/30/21 11:51 47 L 14 139/74 11/30/21 11:46 98.5 F 11/30/21 11:41 51 L 17 58/39 11/30/21 11:31 52 L 20 58/39 11/30/21 11:21 54 L 18 58/39 11/30/21 11:11 55 L 27 H 58/39 11/30/21 11:01 53 L 25 H 58/39 11/30/21 11:00 45 L 18 100 11/30/21 10:51 49 L 15 105/72 - Physical Examination General: No Apparent Distress HEENT: Positive: PERRL Neck: Positive: neck supple Cardiac: Positive: Reg Rate and Rhythm Lungs: Positive: clear to auscultation Neuro: Positive: Grossly Intact Abdomen: Positive: Soft Skin: Positive: Clear Extremities: Absent: edema - Labs and Meds CBC 12/01/21 Range/Units 05:21 WBC 14.4 H (4.5-11.0) K/mm3 RBC 4.35 (3.65-5.03) M/mm3 Hgb 11.7 (10.1-14.3) gm/dl Hct 36.4 (30.3-42.9) % Plt Count 414 (140-440) K/mm3 Comprehensive Metabolic Panel 12/01/21 Range/Units 05:21 Sodium 139 (137-145) mmol/L Potassium 3.4 L (3.6-5.0) mmol/L Chloride 104.4 (98-107) mmol/L Carbon Dioxide 23 (22-30) mmol/L BUN 9 (7-17) mg/dL Creatinine 0.8 (0.6-1.2) mg/dL Glucose 88 (65-100) mg/dL Calcium 8.7 (8.4-10.2) mg/dL
[2021-12-01] MEDS ORDERED: CLOPIDOGREL 75 MG TAB PO SCH (11:00)
--- NOTE | 2021-12-01 12:04 | Discharge Summary ---
Providers - Providers Date of Admission: 11/27/21 17:41 Date of discharge: 12/01/21 Attending physician: RAMONA RENEE MD 11/27/21 17:41 Consult to Physician [CONS] Routine Comment: Consulting Provider: BRYON ROJO Physician Instructions: Reason For Exam: Femoral artery injury 11/27/21 19:08 Consult to Cardiology [CONS] Routine Consulting Provider: PADMINI CERVANTES Reason For Exam: Femoral artery aneurysm 11/30/21 16:58 Occupational Therapy Evaluate and Treat [CONS] Routine Comment: Reason For Exam: weakness Physical Therapy Evaluation and Treat [CONS] Routine Comment: Reason For Exam: weakness 11/30/21 21:48 Occupational Therapy Evaluate and Treat [CONS] Routine Comment: Reason For Exam: weakness Physical Therapy Evaluation and Treat [CONS] Routine Comment: Reason For Exam: weakness Primary care physician: WILFRID CONLEY Hospitalization Reason for admission: Leg swelling, leg pain Condition: Stable Hospital course: Interval history: This is a 53-year-old female with systolic heart failure, s/p V. fib cardiac arrest, HTN, HLD, PVD, CAD s/p stent placement (2018), atrial fibrillation, DVT on therapeutic anticoagulation who presented to the emergency department on 11/27 with complaints of leg pain, swelling and immobility. Of note patient un derwent cardiac catheterization via right groin in [facility] per Dr. Home Corona on 11/23/2021 for complaints of palpitation which showed previous multivessel stents were all patent and no additional interventions required. Patient underwent a CTA with runoffs and was found to have a right femoral artery injury complicated by right femoral artery hemorrhage with expanding hematoma with suspicion of development of compartment syndrome and vascular surgery was consulted in the ED. Patient was admitted to the hospital service with consults to cardiology to IMCU via right femoral artery hemorrhage/expanding hematoma Hospital Course to Date: 11/28: Patient stable on RA this am. SB, HR in the 30s-50s this am, BP stable. Right groin hematoma with pressure dressing noted. RLE arterial doppler pending. Vascular Surgery on consult. Keep patient NPO for now for possible procedure. Cardiology also consulted for cardiac eval. 11/29: Right groin hematoma persist, pressure dressing applied this am by Vascular Surgery. Per Vascular surgery if hematoma persist possible thrombin injection tomorrow in the [facility]. NPO after midnight tonight. Continue PRN ativan for anxiety 11/30: Right arterial duplex showed no residual pseudoaneurysm, resumed cardiac diet, potassium repleted, transferred to telemetry possible discharge tomorrow with follow-up with vascular surgery 2 weeks. PT/OT consulted. 12/01: Vital signs stable, no acute complaints. No needs per PT/OT assessment. She will be discharged home patient advised to follow up with vascular surgery as an outpatient. Advised to follow-up with her primary care doctor as an outpatient. Advise to discontinue eliquis and aspirin at this time. Per cardiology, recommendation for plavix only for single antiplatelet therapy for CAD. Advised to resume remainder of home meds. Disposition: HOME / SELF CARE / HOMELESS Final Discharge Diagnosis (Prints w/discharge instructions): Right femoral artery hemorrhage with expanding hematoma Time spent for discharge: 35 Core Measure Documentation - Palliative Care Palliative Care/ Comfort Measures: Not Applicable - Core Measures Any of the following diagnoses?: none Exam - Physical Exam Narrative exam: General appearance: Present: no acute distress - EENT Eyes: Present: PERRL, EOM intact ENT: hearing intact, clear oral mucosa, dentition normal - Neck Neck: Present: normal ROM - Respiratory Respiratory effort: normal Respiratory: bilateral: CTA - Cardiovascular Rhythm: regular Heart Sounds: Present: S1 & S2. Absent: systolic murmur, diastolic murmur - Extremities Extremities: no ischemia, pulses intact, pulses symmetrical, No edema, normal temperature, normal color Peripheral Pulses: within normal limits (Right groing swollen and hard on palpation) - Abdominal General gastrointestinal: soft, non-tender, normal bowel sounds - Integumentary Integumentary: Present: warm, dry - Psychiatric Psychiatric: cooperative - Neurologic Neurologic: CNII-XII intact, no focal deficits, moves all extremities - Constitutional Vitals: Temp Pulse Resp BP Pulse Ox 98.3 F 85 16 123/67 99 12/01/21 07:51 12/01/21 10:22 12/01/21 03:54 12/01/21 07:51 12/01/21 07:51 Plan Follow up with: WILFRID CONLEY MD [Primary Care Provider] - 3-5 Days
[2021-12-01 16:09] VITALS: BP 153/88
== END 2021-12-01 17:30 | disposition home or self-care (01) | DRG 300 ==
LOC: ED 10:53 → IMCU 17:41 → 4A 11-30 23:51
PROVIDERS: ADMIT Internal Medicine; ATTEND Internal Medicine
DX: I72.4 Aneurysm of artery of lower extremity (principal); R65.10 Systemic inflammatory response syndrome (SIRS) of non-infectious origin without acute organ dysfunction; E66.2 Morbid (severe) obesity with alveolar hypoventilation; I50.22 Chronic systolic (congestive) heart failure; E44.0 Moderate protein-calorie malnutrition; I48.0 Paroxysmal atrial fibrillation; R58 Hemorrhage, not elsewhere classified; E87.6 Hypokalemia; I25.10 Atherosclerotic heart disease of native coronary artery without angina pectoris; E78.5 Hyperlipidemia, unspecified; F41.9 Anxiety disorder, unspecified; I11.0 Hypertensive heart disease with heart failure; Z95.5 Presence of coronary angioplasty implant and graft; Z83.3 Family history of diabetes mellitus; Z82.49 Family history of ischemic heart disease and other diseases of the circulatory system; Z68.39 Body mass index [BMI] 39.0-39.9, adult; Z86.718 Personal history of other venous thrombosis and embolism; Y92.89 Other specified places as the place of occurrence of the external cause
CPT/HCPCS: 36415; 72191; 75635; 80048; 80053; 83735; 84100; 84443; 85014; 85018; 85025; 85027; 85610; 85730; 93005; 94640; G0378; J1170; J2060; J2270; J3480; J7030; Q9967